=== PATIENT | male | born 1990 | race Caucasian/White ===

== ENCOUNTER → 2017-09-29 17:36 | Outpatient (CLI) | payer MEDICARE, MEDICAID, SELFPAY ==
[2017-09-29 19:01] LABS: Amphetamine Urine VISTA NEGATIVE (<1000 ng/mL); Barbiturate Urine VISTA NEGATIVE (< 200 ng/mL); Benzodiazepine Urine VISTA NEGATIVE (< 200 ng/mL); Cocaine Urine VISTA NEGATIVE (< 300 ng/mL); Ecstacy Urine VISTA NEGATIVE (< 500 ng/mL); Methadone Urine VISTA NEGATIVE (< 300 ng/mL); PCP Urine VISTA NEGATIVE (< 25 ng/mL); THC Urine VISTA NEGATIVE (< 50 ng/mL); Vista UDS pH Range 5
== END ==
PROVIDERS: Family Provider Pediatrics; PCP Pediatrics; Visit Provider Anesthesiology Pain Medicine
DX: F11.20 Opioid dependence, uncomplicated (principal)
CPT/HCPCS: 80307

== ENCOUNTER → 2017-11-03 20:06 | Outpatient (CLI) | payer MEDICARE, MEDICAID, SELFPAY | PROVIDERS: Family Provider Pediatrics; PCP Pediatrics; Visit Provider Internal Medicine | DX: G47.10 Hypersomnia, unspecified (principal) | CPT/HCPCS: 95810 ==

== ENCOUNTER → 2017-11-27 20:15 | Outpatient (CLI) | payer MEDICARE, MEDICAID, SELFPAY | PROVIDERS: Family Provider Internal Medicine; PCP Internal Medicine; Visit Provider Internal Medicine | DX: G47.33 Obstructive sleep apnea (adult) (pediatric) (principal) | CPT/HCPCS: 95811 ==

== ENCOUNTER → 2018-02-23 08:36 | Outpatient (CLI) | payer MEDICARE, MEDICAID, SELFPAY | PROVIDERS: Family Provider Internal Medicine; PCP Internal Medicine; Visit Provider Internal Medicine | DX: G47.33 Obstructive sleep apnea (adult) (pediatric) (principal) | CPT/HCPCS: 98960; G0463 ==

== ENCOUNTER → 2018-04-01 16:43 | Outpatient (CLI) | payer MEDICARE, MEDICAID, SELFPAY ==
--- NOTE | 2018-04-01 17:17 | MRI_ITS ---
STUDY: MRI LUMBAR SPINE WITHOUT CONTRAST REASON FOR EXAM: Male, 27 years old. Right-sided radiculopathy TECHNIQUE: Standardized fat and water weighted pulse sequences were obtained in the sagittal and axial planes. COMPARISON: None FINDINGS: There is normal alignment and curvature of the lumbosacral spine with no acute fractures or dislocations and no abnormal marrow infiltrative processes. The disc spaces look fairly well-maintained except for mild desiccation at L4-5. There is also shortening of the pedicular lengths throughout. The conus medullaris terminates at T12-L1. T12-L1: Normal endplates. Normal disc height, hydration and morphology. Normal bilateral facet joints. Normal central canal and bilateral lateral recesses. Normal bilateral intervertebral neural foramina. L1-2: Normal endplates. Normal disc height, hydration and morphology. Normal bilateral facet joints. Normal central canal and bilateral lateral recesses. Normal bilateral intervertebral neural foramina. L2-3: Normal endplates. Normal disc height, hydration and morphology. Degenerative changes of the facet joints with some hypertrophy of ligamentum flavum. Mild central canal stenosis. Normal central canal and bilateral lateral recesses. Normal bilateral intervertebral neural foramina. L3-4: There is a 1.1 x 0.4 cm right paracentral disc protrusion with deformity of the anterior contour of the thecal sac and impingement upon the intrathecal L4 nerve root L4-5: A fairly large 1.8 x 0.5 cm Central/right paracentral disc protrusion with severe deformity of the thecal sac and impingement upon the intrathecal right L5 nerve root L5-S1: Normal endplates. Normal disc height hydration and morphology. Normal bilateral facet joints. Normal central canal and bilateral lateral recesses. Normal bilateral intervertebral neural foramina. The aorta and the visualized portions of kidneys are normal. MRI/Spine Lumbar (Routine) IMPRESSION: Physiologic shortening of the pedicular lengths. A 1.1 x 0.4 cm right paracentral disc protrusion at the L3-4 level with a moderate deformity of the anterior contour of the thecal sac on the right and subsequent impingement on the right intrathecal L4 nerve root. A 1.8 x 0.5 cm central/right central disc protrusion at L4-5 with severe deformity of the thecal sac and impingement on the intrathecal L5 nerve root Electronically Signed: Rashad Degroot, at 5:12 EDT Tel , Service support ,
== END ==
PROVIDERS: Family Provider Internal Medicine; PCP Internal Medicine; Visit Provider Anesthesiology Pain Medicine
DX: M54.9 Dorsalgia, unspecified (principal); M79.604 Pain in right leg
CPT/HCPCS: 72148

== ENCOUNTER → 2018-07-28 20:27 | Outpatient (CLI) | payer MEDICARE, MEDICAID, SELFPAY | PROVIDERS: Family Provider Internal Medicine; PCP Internal Medicine; Visit Provider Clinical Nurse Specialist | DX: G47.33 Obstructive sleep apnea (adult) (pediatric) (principal) | CPT/HCPCS: 95811 ==

== ENCOUNTER → 2018-08-18 07:57 | Outpatient (CLI) | payer MEDICARE, MEDICAID, SELFPAY ==
--- NOTE | 2019-01-04 12:19 | NEURO ---
NCS and/or EMG Patient Report Ordering Doctor: Kwadwo Slater DATE OF SERVICE: 01/04/19 This is a bilateral lower extremity nerve conduction study originally performed 08/18/2018. There has been a delay in dictation of the study for unknown reasons. EMG apparently was not performed. Bilateral lower extremity nerve conduction study demonstrates low amplitude of the tibial motor responses bilaterally. The sural sensory responses are intact. There is low amplitude from all of the motor responses including the bilateral peroneal and bilateral tibial responses with prolonged latencies from those nerves as well. There is also slowing of conduction velocities from all nerves. These responses are similar to the responses from the right lower extremity performed 04/09/2016. Impression abnormal nerve conduction study of the bilateral lower extremities consistent with primarily motor polyneuropathy.
== END ==
PROVIDERS: Family Provider Internal Medicine; PCP Internal Medicine; Referring Provider Psychiatry & Neurology Neurology; Visit Provider Psychiatry & Neurology Neurology
DX: G62.9 Polyneuropathy, unspecified (principal); R20.0 Anesthesia of skin; R20.2 Paresthesia of skin
CPT/HCPCS: 95886; 95911

== ENCOUNTER 2018-12-06 17:00 | Outpatient (RCR) | payer MEDICARE, MEDICAID, SELFPAY ==
[2018-10-19 14:20] VITALS: BMI 46.0
--- NOTE | 2018-11-08 08:50 | HP.PTEVAL ---
Patient's Visit Information JEAN PIERRE BROOKE is a 28 year old M referred to Physical Therapy by Yesenia Alicea MD with a diagnosis of Lumbar stenosis. Date of Evaluation: 11/01/18 Physical Therapist: Murali Mo DPT - Visit Plan Frequency: 2x /Week Duration: 4 Weeks Plan: Pt. to start with core stability and lumbar ROM in aquatic setting. Progress as tolerated. - Subjective Findings: Pt. is here today for his initial evaluation with diagnosis of lumbar stenosis. Pt. reports ahving back pain for a number of years. Pt. did have an MRI showing L3-L4 and L4/L5 disc herniations and multiple level stenosis. Pt. did see an ortho who talked about non operative and operative options. Operative options being L2-L5 laminectomy. Pt. works at local [employer] where he does some lifting and standing, but is able to take frequent breaks. Pt. does have a mental disability. Pt. is able to swim without issues and is not afraid of water. Pt. does report pain going down RLE to levels of mid calf. No pain with sitting, mostly with standing and walking. Pt. denies N/T. Pt. is hopeful to reduce symptoms in order to avoid lumbar surgery. - Objective POSTURE: Pt. is over wt. Pt. has decreased lumbar lordosis. Pt. also has increased thoracic kyphosis with rounded shoulders. Pt. is able to improve with Vcing. PALPATION: pt. has tenderness throughout lumbar paraspinals. Pt. has no pain with palaption of BLEs. NEURO: pt. has normal DTR of bilateral LEs. Pt. denies sensation changes with testing this date. Pt. is able to rise on heels and toes without issues. ROM: lumbar spine: flexion mod loss increase NW, ext mod loss increase NW, SB min loss bilat NE, rotation min loss NE bilat. Tight HS noted bilaterally and tight hip flexors noted bilaterally. MMT: Pt. has 5/5 strength throughout bilateral LEs, except 4/5 hip ext. Pt. has poor+ core strength. Pt. does fatigue rapidly with maintaing improved posture. GAIT: Pt. ambulates without AD without LOB. Pt. does have increased sway back posture with gait. STAIRS: negotiates with reciprocal pattern without LOB. Increased pain with increased walking. - Special Tests L/S Slump test left side: Negative L/S Slump test right side: Negative L/S Left Straight Leg Raise: Negative L/S Right Straight Leg Raise: Negative - Goals Goal 1:: Pt. to be I with HEP. Goal Time Frame: 4-6 Weeks Goal 2:: Pt. to have increased core strength by 1/2 grade to increase stability and reduce stress applied to lumbar spine with all functional mobility. Goal Time Frame: 4-6 Weeks Goal 3:: Pt. to increase walking tolerance to 1 mile prior to have increased back and RLE pain allowing for increased healthy life style. Goal Time Frame: 4-6 Weeks Goal 4:: Pt. to complete work activities with 1-2/10 pain in lumbar spine and RLE Goal Time Frame: 4-6 Weeks Goal 5:: Pt. to demonstrate improved posture throughout therapy session indicating increased postural awareness. Goal Time Frame: 4-6 Weeks - Rehabilitation Potential Physical Therapy Diagnosis: Pt. has signs and symptoms consistent with lumabr stenosis. Pain increases with increased walking and lfting, decreases in sitting. He does have radiating RLE symptoms, but reduces in sitting. Pt. would benefit from PT in aquatic setting to icnrease core stability and improve posture. Rehabilitation Potential: Fair - Anticipated Interventions Patient/Client Instruction: Educate patient on: Condition, Plan of Care, Risk Factors, Benefits of Fitness Program For the Purpose of:: To improve decision making, To facilitate caregiver knowledge, To improve self management, To prevent re-injury, To improve ability to perform tasks related to life management, To improve tolerance to ADL's Therapeutic Exercise to Include: Strength training, Power training, Endurance training, Balance training, Flexibilty training, In an aquatic setting, Passive ROM, Active ROM, Dynamic Lumbar Stabilization, Neeru Exercises For the Purpose of:: To decrease pain, To decrease swelling/inflammation, To increase ROM, To improve nutrient delivery to tissue, To improve muscle performance and motor function, To improve ability to perform ADL's, To improve gait and locomotor functions, To improve health of tissue, To decrease soft tissue restriction Thank you for the opportunity to evaluate your patient. For Medicare and Medicare HMO plans, please review the plan of care and approve it. It will need to be FAXED BACK to us at [phone] for Medicare purposes. For Medicare only, by signing this I certify the plan of care. Please let me know if there are questions or concerns regarding this plan of care. Physician Signature: Date:
--- NOTE | 2019-04-26 10:32 | HP.PTDCSUM ---
HP - PT D/C Summary It has been my pleasure to treat JEAN PIERRE BROOKE under orders from Yesenia Alicea MD, for the diagnosis of Lumbar stenosis for a total of 9 visit(s). Discharge Date: 12/06/18 Please see the following information for a summary of their discharge status. - Subjective Subjective: Pt. reports I am doing a little better, but not all the way better.' Pt. reports being HEP compliant. - Pain Lumbar Spine Pain Intensity (Out of 10): 2 - Overall Improvement % Improvement: 50 - Objective Objective/Function: Pt. was seen in aquatic setting for his lumbar stenosis. ROM: pt. has slight reduction in extension, but rest of his ROM is good. Pt. has some tingling in BLEs, but both. Pt. reports having 2/10 pain in lumbar spine with standing, no pain with sitting. Pt. has 5/5 BLE strength, and fair core stength. Pt. desires to continue on his own at this point in time. - Goals Goal 1:: Pt. to be I with HEP. Goal Progress: Goal Met Goal 2:: Pt. to have increased core strength by 1/2 grade to increase stability and reduce stress applied to lumbar spine with all functional mobility. Goal Progress: Goal Met Goal 3:: Pt. to increase walking tolerance to 1 mile prior to have increased back and RLE pain allowing for increased healthy life style. Goal Progress: Progressing Goal 4:: Pt. to complete work activities with 1-2/10 pain in lumbar spine and RLE Goal Progress: Progressing Goal 5:: Pt. to demonstrate improved posture throughout therapy session indicating increased postural awareness. Goal Progress: Goal Met - Plan Plan: Pt. to be DC to HEP at this point in time. - D/C Information Discharge Comments: Pt. was seen in PT in aquatic setting for ROM and core stability exercises. Pt. progressed, but did not fully abolish his symptoms. Pt. has mild pain with working and walking longer distances. Pt. is independent with his HEP and will be DC to HEP at this point in time. If there are questions or concerns regarding this patient's physical therapy, please feel free to call me at [phone]. Thank you for the referral of this patient. Sincerely, Murali oM DPT
== END 2018-12-06 19:00 | disposition home or self-care (01) ==
LOC: PT 17:00
PROVIDERS: Family Provider Internal Medicine; PCP Internal Medicine; Referring Provider Orthopaedic Surgery; Visit Provider Orthopaedic Surgery
DX: M48.061 Spinal stenosis, lumbar region without neurogenic claudication (principal); M54.16 Radiculopathy, lumbar region
CPT/HCPCS: 97113; 97161; 97530

== ENCOUNTER → 2019-04-20 09:19 | Outpatient (CLI) | payer MEDICARE, MEDICAID, SELFPAY ==
[2018-10-19 14:20] VITALS: BMI 46.0
[2019-04-20 11:45] LABS: Amphetamine Urine VISTA NEGATIVE (<1000 ng/mL); Barbiturate Urine VISTA NEGATIVE (< 200 ng/mL); Benzodiazepine Urine VISTA NEGATIVE (< 200 ng/mL); Cocaine Urine VISTA NEGATIVE (< 300 ng/mL); Ecstacy Urine VISTA NEGATIVE (< 500 ng/mL); Methadone Urine VISTA NEGATIVE (< 300 ng/mL); PCP Urine VISTA NEGATIVE (< 25 ng/mL); THC Urine VISTA NEGATIVE (< 50 ng/mL); Vista UDS pH Range 6
== END ==
PROVIDERS: Family Provider Internal Medicine; PCP Internal Medicine; Referring Provider Anesthesiology Pain Medicine; Visit Provider Anesthesiology Pain Medicine
DX: F11.20 Opioid dependence, uncomplicated (principal)
CPT/HCPCS: 80307

== ENCOUNTER → 2019-08-18 09:48 | Outpatient (CLI) | payer MEDICARE, MEDICAID, SELFPAY ==
[2018-10-19 14:20] VITALS: BMI 46.0
[2019-08-18 10:01] LABS: Platelet Count 195 K/mm3 (150-450)
[2019-08-18 10:25] LABS: AST(SGOT) 39 U/L (15-37); Alanine Aminotransfer ALT/SGPT 72 U/L (16-61)
[2019-08-18 10:50] LABS: Valproic Acid (Depakene) Level 49 ug/mL (50-100)
[2019-08-18 10:51] LABS: Hemoglobin A1c 5.9 % (4.2-6.3)
== END ==
PROVIDERS: Family Provider Internal Medicine; PCP Internal Medicine; Referring Provider Psychiatry & Neurology Psychiatry; Visit Provider Psychiatry & Neurology Psychiatry
DX: Z79.899 Other long term (current) drug therapy (principal)
CPT/HCPCS: 36415; 80164; 82140; 83036; 84450; 84460; 85049

== ENCOUNTER 2021-07-11 17:03 | Emergency (ER) | payer MEDICARE, MEDICAID, SELFPAY ==
[2021-07-11 17:04] VITALS: BP 149/103; PULSE 104; RESP 24; TEMP 36.7; O2SAT 97; BMI 49.7
--- NOTE | 2021-07-11 17:25 | EKG12_ITS ---
Test Reason : CP Blood Pressure : / mmHG Vent. Rate : 097 BPM Atrial Rate : 097 BPM P-R Int : 140 ms QRS Dur : 092 ms QT Int : 366 ms P-R-T Axes : 058 -05 027 degrees QTc Int : 464 ms Normal sinus rhythm Normal ECG Confirmed by ERASTO PLASENCIA, LASHELL ([id number]), newspaper editor managing WILLIAM DESHPANDE ([id number]) on 07/12/2021 1:57:55 P M Referred By: MIRYAM Confirmed By:INDIRA MAURER MD
--- NOTE | 2021-07-11 17:25 | EX.ED.DYSGE1 ---
HPI History of Present Illness Chief Complaint: Chest Pain Detail of Chief Complaint: Chest pain Informant: patient Narrative Narrative: Patient presents to the emergency department complaint of chest pain that started 2 days ago. Patient describes a sharp stabbing pain in the left chest that lasts a few minutes and then resolves. This will happen about every hour. He denies shortness of breath with this. He denies nausea or vomiting. He is never had discomfort like this before. He denies any injury to his chest. He denies recent travel or surgery. No history of PE or DVT. No family history of heart disease. Patient denies fever or recent illness. Prior similar symptoms: No PFSH PFSH Home Medications citalopram 40 mg PO DAILY 02/08/16 [History Last Taken Unknown] clonidine HCl 0.1 mg PO DAILY PRN 02/08/16 [History Last Taken Unknown] divalproex [Depakote] 500 mg PO BID 02/08/16 [History Last Taken Unknown] gabapentin 200 mg PO TIDCM 02/08/16 [History Last Taken Unknown] loratadine [Claritin] 10 mg PO DAILY 02/08/16 [History Last Taken Unknown] risperidone [Risperdal] 3 mg PO DAILY 02/08/16 [History Last Taken Unknown] tramadol 50 mg PO TID 02/08/16 [History Last Taken Unknown] lisinopril 10 mg PO DAILY 07/11/21 [History Last Taken Unknown] Allergy/AdvReac Type Severity Reaction Status Date / Time No Known Allergies Allergy Verified 07/11/21 17:05 Surgical History (Updated 07/11/21 @ 17:38 by Jackson Villar) H/O laminectomy h/o tonsilectomy Social History (Updated 10/30/18 @ 13:[address] Yesenia Alicea MD) Smoking Status: Never smoker ROS ROS ED Constitutional Constitutional ED: Reports systems reviewed and no addt'l complaints, except as documented; Denies body ache(s), change in weight or chills Eyes Eyes: Denies acute decrease in peripheral vision, change in vision, double vision or loss of vision ENT ENT ED: Reports none; Denies ear pain, lip swelling, loss taste/smell, neck pain, otalgia or sore throat Cardiovascular Cardiovascular: Reports none and chest pain; Denies abdominal pain, chest pain with activity, leg edema, lightheadedness, palpitations, rapid heart rate or syncope Respiratory/Chest Respiratory/Chest: Reports none; Denies change in mental status, dry cough, dyspnea, hemoptysis, shortness of breath at rest or shortness of breath with exertion Gastrointestinal Gastrointestinal: Reports none; Denies abdominal pain, change in stool character, diarrhea, hematemesis, hematochezia, melena, rectal bleeding or vomiting Genitourinary Genitourinary ED: Reports none; Denies abdominal discomfort, anuria, dysuria, genital pain or polyuria Musculoskeletal Musculoskeletal: Reports none; Denies arthralgias, back pain, difficulty walking, extremity pain, muscle weakness or myalgias Integumentary Reports none; Denies abscess or rash Neurologic Neurologic: Reports none; Denies abnormal gait, confusion, focal weakness, frequent falls, headache(s), loss of vision, numbness, paresthesias, radicular pain, vertigo or weakness Psychiatric Psychiatric: Reports systems reviewed and no addt'l complaints, except as documented and none; Denies behavioral changes, confusion, difficulty concentrating, hallucinations, suicidal ideation, tactile hallucinations or visual hallucinations Endocrine Endocrinology: Denies none, cold intolerance, excessive sweating, fatigue or heat intolerance Hematologic/Lymphatic Hematologic/Lymphatic: Reports none; Denies anemia, easy bleeding or easy bruising Allergic/Immunologic Allergic/Immunologic ED: Denies as per HPI, none, lip swelling, mouth swelling, throat swelling, tongue swelling or hives EXAM Physical Exam Const Vital Signs: 07/11/21 17:04 07/11/21 17:33 07/11/21 17:41 Temperature 98.0 F Temperature Source Temporal Pulse Rate 104 H Respiratory Rate 24 H Respiratory Effort Normal Blood Pressure 149/103 H Blood Pressure Mean 118 Pulse Ox 97 96 Oxygen Delivery Method Room Air Room Air Positive well nourished and well developed General Appearance ED: well developed and NAD HEENT Reports TM's clear and moist mucous membranes normocephalic and atraumatic; Negative for trauma or tenderness Tympanic Membrane ED: Yes TM's clear Eyes PERRL and EOMs intact bilaterally General Eye ED: Negative for pale conjunctiva or scleral icterus Neck no lymphadenopathy, supple and no JVD General: Negative for tenderness Chest Wall inspection of chest normal and palpation of chest normal Chest: Negative for tenderness Resp normal respiratory effort and clear to auscultation bilaterally Effort and Inspection: Negative for respiratory distress or pain with movement Auscultation: Negative for rhonchi, wheezes or diminished lung sounds Cardio regular rate, regular rhythm, S1 normal heart sound, S2 normal heart sound and no murmurs Peripheral Pulses: pulses 2+ throughout GI normal to inspection, nondistended, normoactive bowel sounds, soft to palpation, non-tender, non-distended and no masses Back/Spine no CVA tenderness and no thoracic nor lumbar tenderness Extremity normal to inspection General Extremety ED: Negative for edema General Extremity: Negative for edema Neuro oriented x3, CN's II-XII intact bilaterally, no sensory deficits noted and gait normal Sensorium / Orientation: awake, alert, oriented to person, oriented to place and oriented to time Motor Exam: strength 5/5 throughout and strength abnormal Psych mental status grossly normal Skin no rashes or lesions noted and no wounds MDM MDM Lab Data Attestation: I reviewed the patient's lab results. Labs: Laboratory Results - last 24 hr 07/11/21 07/11/21 07/11/21 17:30 17:30 17:30 WBC 4.6 RBC 4.81 Hgb 14.1 Hct 43.0 MCV 89.4 MCH 29.3 MCHC 32.8 RDW Std Deviation 51.7 H RDW Coeff of Maddy 15.8 H Plt Count 117 L MPV 9.2 Immature Gran % (Auto) 0.400 Neut % (Auto) 77.6 H Lymph % (Auto) 16.0 L [place] % (Auto) 5.4 Eos % (Auto) 0.4 Baso % (Auto) 0.2 Absolute Neuts (auto) 3.6 Absolute Lymphs (auto) 0.74 L Nucleated RBC % 0 Differential Comment SCANNED D-Dimer Quant (PE/DVT) < 0.27 L Sodium 136 Potassium 3.8 Chloride 100 Carbon Dioxide 29.0 Anion Gap 7 BUN 11 Creatinine 0.59 L Estim Creat Clear Calc 214.79 Est GFR (MDRD) Af Amer 208 Est GFR (MDRD) Non-Af 171 BUN/Creatinine Ratio 18.5 Glucose 121 H Calcium 9.4 Troponin I High Sens 6 Radiography Chest X-Ray - ED: 1 View Diagnostic Testing: Clinical Impression(s) from Imaging Studies Chest X-Ray 07/11/21 17:37 IMPRESSION: No acute cardiopulmonary pathology unchanged since previous study Electronically Signed: Ramez Merritt MD at 18:04 EST , Service support , 1 view chest x-ray obtained interpreted by myself as no acute disease process. Radiology in agreement. EKG Initial EKG: Comments: Sinus rhythm with a ventricular rate of 97 bpm with no acute ST segment changes. No evidence of pericarditis. Discharge Plan Triage Chief Complaint: Chest Pain ED Provider: Christiano Ngo Dx/Rx/DC Orders Clinical Impression: Chest pain Instructions: ED Pain, Acute, Uncertain Cause Prescriptions: No Action clonidine HCl 0.1 MG tablet 0.1 mg PO DAILY PRN (Reason: Anxiety) RF: 0 citalopram 40 MG tablet 40 mg PO DAILY RF: 0 divalproex [Depakote] 500 MG tablet,delayed release (DR/EC) 500 mg PO BID RF: 0 tramadol 50 MG tablet 50 mg PO TID RF: 0 risperidone [Risperdal] 3 MG tablet 3 mg PO DAILY RF: 0 gabapentin 100 MG capsule 200 mg PO TIDCM RF: 0 loratadine [Allergy Relief (loratadine)] 10 MG tablet 10 mg PO DAILY RF: 0 lisinopril 10 mg tablet 10 mg PO DAILY RF: 0 Primary Care Provider: Eleni Sofia Referrals: Eleni Sofia MD [Primary Care Provider] - 5-7 Days Disposition Disposition: Home, Self Care
[2021-07-11 17:33] VITALS: O2SAT 96
[2021-07-11] MEDS: 0.9% Normal Saline 1,000 ML 150 ML IV (17:35)
--- NOTE | 2021-07-11 17:37 | RAD_ITS ---
STUDY: X-RAY CHEST REASON FOR EXAM: Male, 31 years old. chest pain TECHNIQUE: AP portable COMPARISON: 02/08/2017. FINDINGS: Less than optimal inspiratory effort is seen and there is minor interstitial prominence in the lower lobes.. There is no demonstrated pleural abnormality. Borderline cardiomegaly exaggerated by radiographic technique. Normal mediastinum and suzette. Normal visualized pulmonary arteries. Normal visualized aortic arch and descending thoracic aorta. Normal visualized thoracic spine. Normal visualized ribs, clavicles, and shoulders. There is no demonstrated abnormality of the visualized soft tissue structures of the upper abdomen. No significant change since prior exam. RAD/Chest 1 View (Portable) IMPRESSION: No acute cardiopulmonary pathology unchanged since previous study Electronically Signed: Ramez Merritt MD at 18:04 EST , Service support ,
[2021-07-11 18:16] LABS: Anion Gap 7 (5-15); BUN 11 mg/dL (7-18); BUN/Creat Ratio 18.5 RATIO (10-20); Calcium,Total 9.4 mg/dL (8.5-10.1); Chloride 100 mmol/L (98-107); Creatinine, Serum 0.59 mg/dL (0.70-1.30); EST Glomerular Filtration Rate 171 mL/min (>60); Est Glom Filt Rate - Afr Amer 208 mL/min (>60); Estimated Creatinine Clearance 214.79 ml/min; Glucose 121 mg/dL (74-106); Potassium 3.8 mmol/L (3.5-5.1); Sodium Level 136 mmol/L (136-145); Troponin-I HS 6 pg/mL (3.0-78.0)
[2021-07-11 18:37] LABS: D-Dimer Quantitative (DVT/PE) < 0.27 FEU/ug/m (0.27-0.49)
[2021-07-11 18:54] VITALS: BP 144/96; PULSE 96; RESP 25; O2SAT 96
[2021-07-11 19:04] LABS: Absolute Lymphocyte Count 2.88 X10^3/uL (0.83-4.51); Absolute Neutrophil Count 4.8 X10^3/uL (2.0-7.7); Basophil# 0.08 X10^3/uL; Basophil% 0.9 % (0-1); Eosinophil# 0.17 X10^3/uL; Eosinophils% 1.9 % (0-5); Hematocrit 44.1 % (40-54); Hemoglobin 14.4 g/dL (13.0-16.5); Lymphocyte # 2.88 X10^3/ul (0.83-4.51); Mean Corp Hgb Conc 32.7 g/dL (32-36); Mean Corpuscular Hgb 27.6 pg (27.0-32.0); Mean Corpuscular Volume 84.5 fL (80-94); Mean Platelet Vol. 11.1 fl (6.2-12.0); Monocyte# 0.69 X10^3/uL; Monocyte% 7.9 % (0-10); NRBC Flagged by Analyzer 0 % (0-5); Neutrophil # 4.82 X10^3/uL (2.7-7.7); Neutrophil % 55.2 % (47-70); Platelet Count 225 K/mm3 (150-450); RBC Distribution Width CV 12.3 % (11.6-14.6); RBC Distribution Width SD 37.2 fl (35.1-43.9); Red Blood Count 5.22 M/mm3 (4.6-6.2); White Blood Count 8.7 K/mm3 (4.4-11.0)
== END 2021-07-11 18:55 | disposition home or self-care (01) ==
PROVIDERS: Emergency Provider Emergency Medicine; PCP Internal Medicine
DX: R07.9 Chest pain, unspecified (principal)
CPT/HCPCS: 71045; 80048; 84484; 85025; 85379; 93005; 96360; 99284; J7030

== ENCOUNTER → 2022-04-23 | Outpatient (CLI) | payer MEDICARE, MEDICAID, SELFPAY ==
[2022-04-23 10:21] LABS: D-Dimer Quantitative (DVT/PE) 0.31 FEU/ug/m (0.27-0.49)
== END | disposition home or self-care (01) ==
LOC: LABSPEC 09:59
PROVIDERS: PCP Internal Medicine; Referring Provider Nurse Practitioner; Visit Provider Nurse Practitioner
DX: R60.0 Localized edema (principal); R06.02 Shortness of breath
CPT/HCPCS: 85379

== ENCOUNTER 2022-09-16 08:44 | Emergency (ER) | payer MEDICARE, MEDICAID, SELFPAY ==
[2022-09-16 08:45] VITALS: BP 154/92; PULSE 102; RESP 20; TEMP 36.4; O2SAT 97; BMI 50.1
[2022-09-16 09:03] VITALS: PULSE 93; RESP 18; O2SAT 96
--- NOTE | 2022-09-16 09:18 | VDLE_ITS ---
Reason For Study: Swelling RIGHT LEFT GSV is normal. CFV is compressible, spontaneous, phasic, CFV is compressible, spontaneous, phasic, competent, and demonstrates normal competent and demonstrates normal augmentation. augmentation. FV is compressible, spontaneous, phasic, competent and demonstrates normal augmentation. POP V is compressible, spontaneous, phasic, competent and demonstrates normal augmentation. T/P Trunk is compressible. PTV is compressible. RT PerV is compressible. Procedure This is a venous duplex using B-mode, color flow and spectral Doppler. Exam performed portable in ED. The exam was diagnostic. A preliminary report was called and/or faxed to Dr. Mccloud. VL/Venous Duplex US, Unilateral Interpretation Summary There is no evidence of right lower extremity deep vein thrombosis. Right great saphenous vein appears patent and compressible segmentally. Normal flow patterns left common f emoral vein Ordering Physician: Cuco Mccloud Referring Physician: Cuco Mccloud Performed By: Shawn Frank RVT
--- NOTE | 2022-09-16 09:18 | EKG12_ITS ---
Test Reason : CP Blood Pressure : / mmHG Vent. Rate : 084 BPM Atrial Rate : 084 BPM P-R Int : 136 ms QRS Dur : 100 ms QT Int : 384 ms P-R-T Axes : 042 001 039 degrees QTc Int : 453 ms Normal sinus rhythm Normal ECG Confirmed by KRYSTEN LONODNO MD ([id number]), slot editor WILLIAM DESHPANDE ([id number]) on 09/17/2022 9:12:49 AM Referred By: YSABEL Confirmed By:KRYSTEN LONDONO MD
--- NOTE | 2022-09-16 09:18 | RAD_ITS ---
STUDY: X-RAY CHEST REASON FOR EXAM: Male, 32 years old. Mid-chest pain TECHNIQUE: PA and lateral views of the chest. Limited study due to patient motion artifact. COMPARISON: Comparison is made with prior study 07/11/2021. FINDINGS: EKG electrodes are seen. The lungs are clear and expanded. There is no demonstrated pleural abnormality. Normal size heart. Normal mediastinum and suzette. Normal visualized pulmonary arteries. Normal visualized aortic arch and descending thoracic aorta. Normal visualized thoracic spine. Normal visualized ribs, clavicles, and shoulders. There is no demonstrated abnormality of the visualized soft tissue structures of the upper abdomen. RAD/Chest PA and Lateral IMPRESSION: No acute abnormality is seen. Electronically Signed: Reagan Bentley MD at 10:37 EST ,
--- NOTE | 2022-09-16 09:20 | EDS_ITS ---
HPI History of Present Illness Chief Complaint: Chest Pain Informant: patient and parent Onset/Context/Timing Onset: Yesterday Activity at onset: activity on onset (Lying supine ready to go to sleep) Timing: Continuous Quality: Positive for Aching and Tightness Location: Substernal Current Severity: Moderate Maximum Severity: Moderate Worsened By: Movement of Torso and Breathing (a little) Relieved By: - (sitting up) Associated Symptoms: Positive for Dyspnea; Negative for Nausea, Vomiting, Diaphoresis, Cough, Fever, Lightheadedness or Palpitations Narrative Narrative: 32-year-old male started having central chest discomfort last night. He states he is a little short of breath. He states he has a history of asthma. He agrees that his chest feels tight. Mom brings him in because all my kids are big boys, he has high blood pressure, and his grandfather had a heart attack and I was concerned he was having one. CVD Risk Factors: Positive for Hypertension; Negative for Diabetes, Hypercholesterolemia, Family History 1' </=55 or Smoking PE Risk Factors: Negative for Recent Travel/Surgery, Recent Immobilization, Prior DVT or PE (Both legs chronically swollen, with the right chronically worse than the left), Cancer or OCP + Smoking + >/=35 PFSH PFSH Medical History HTN (hypertension) Home Medications citalopram 40 mg tablet 40 mg PO DAILY 02/08/16 [History Last Taken Unknown] clonidine HCl 0.1 mg tablet 0.1 mg PO DAILY PRN Anxiety 02/08/16 [History Last Taken Unknown] divalproex 500 mg tablet,delayed release (Depakote) 500 mg PO BID 02/08/16 [History Last Taken Unknown] gabapentin 100 mg capsule 200 mg PO TIDCM 02/08/16 [History Last Taken Unknown] loratadine 10 mg tablet (Allergy Relief (loratadine)) 10 mg PO DAILY 02/08/16 [History Last Taken Unknown] risperidone 3 mg tablet (Risperdal) 3 mg PO DAILY 02/08/16 [History Last Taken Unknown] tramadol 50 mg tablet 50 mg PO TID 02/08/16 [History Last Taken Unknown] lisinopril 10 mg tablet 10 mg PO DAILY 07/11/21 [History Last Taken Unknown] Allergy/AdvReac Type Severity Reaction Status Date / Time No Known Allergies Allergy Verified 09/16/22 08:47 Surgical History H/O laminectomy h/o tonsilectomy Social History Smoking Status: Never smoker ROS ROS ED Constitutional Constitutional ED: Denies chills or fever(s) Eyes Eyes: Denies change in vision or diplopia ENT ENT ED: Denies rhinorrhea or sore throat Cardiovascular Cardiovascular: Reports chest pain and leg edema; Denies palpitations Respiratory/Chest Respiratory/Chest: Reports dyspnea; Denies cough Gastrointestinal Gastrointestinal: Denies abdominal pain, diarrhea, nausea or vomiting Genitourinary Genitourinary ED: Denies dysuria or hematuria Musculoskeletal Musculoskeletal: Denies back pain or neck pain Integumentary Denies abscess or rash Neurologic Neurologic: Denies headache(s), paresthesias or weakness Psychiatric Psychiatric: Denies anxiety or suicidal thoughts EXAM Physical Exam Const Vital Signs: 09/16/22 08:45 09/16/22 09:03 09/16/22 09:50 Temperature 97.5 F L Temperature Source Temporal Pulse Rate 102 H 93 110 H Respiratory Rate 20 H 18 22 H Respiratory Pattern Tachypnea Blood Pressure 154/92 H Blood Pressure Mean 112 Pulse Ox 97 96 Oxygen Delivery Method Room Air Room Air Positive well nourished and well developed General Appearance ED: well developed and NAD HEENT Reports moist mucous membranes normocephalic and atraumatic Eyes PERRL and EOMs intact bilaterally Neck full ROM and supple Resp normal respiratory effort and clear to auscultation bilaterally Cardio regular rate, regular rhythm and no murmurs GI non-tender and non-distended Auscultation: normoactive bowel sounds Palpation: soft Back/Spine no CVA tenderness General Back: other FROM Extremity normal to inspection General Extremety ED: Negative for edema, pulses abnormal or tenderness General Extremity: Negative for edema or pulses abnormal Neuro oriented x3, CN's II-XII intact bilaterally and no sensory deficits noted Sensorium / Orientation: awake and alert Motor Exam: strength 5/5 throughout Skin no rashes or lesions noted and no wounds MDM MDM MDM Narrative Medical decision making narrative: EKG is normal, 2 view chest x-ray obtained is normal on my interpretation, r adiology in agreement. Initially gave the patient an albuterol aerosol he said it helped a little, considering reactive airway and the differential here for his discomfort. I then given a GI cocktail and I took the pain away. Discussing the possibility of recurrent symptoms, and my recommendation to take an H2 gilda or PPI daily for 1 to 2 weeks, mom states he is already on that because he has already been diagnosed with reflux which was unbeknownst to me until this time. This makes it more likely to be the etiology of his symptoms especially given the history. I think it is less likely to be PE based on symptoms and history and lack of risk factors, we did do an ultrasound of his asymmetrically swollen right lower extremity, it is negative for DVT which makes PE even less likely here. Discussed all this with mom and patient they are comfortable discharge home and follow-up as needed. Radiography Diagnostic Testing: Clinical Impression(s) from Imaging Studies Chest X-Ray 09/16/22 09:18 IMPRESSION: No acute abnormality is seen. Electronically Signed: Reagan Bentley MD at 10:37 EST , Rhythm Strip Rhythm Strip: Sinus Rhythm Rate: 100 Ectopy: None EKG Initial EKG: Attestation: I personally reviewed and interpreted this EKG as follows: Interpretation: Sinus Rhythm and No Acute Injury Pattern Comments: Normal EKG Discharge Plan Triage Chief Complaint: Chest Pain ED Provider: Cuco Mccloud Dx/Rx/DC Orders Clinical Impression: Chest pain due to gastrointestinal reflux disease, Edema of right lower extremity Instructions: ED GERD (Adult) Prescriptions: No Action clonidine HCl 0.1 MG tablet 0.1 mg PO DAILY PRN (Reason: Anxiety) citalopram 40 MG tablet 40 mg PO DAILY divalproex [Depakote] 500 MG tablet,delayed release (DR/EC) 500 mg PO BID tramadol 50 MG tablet 50 mg PO TID risperidone [Risperdal] 3 MG tablet 3 mg PO DAILY gabapentin 100 MG capsule 200 mg PO TIDCM loratadine [Allergy Relief (loratadine)] 10 MG tablet 10 mg PO DAILY lisinopril 10 mg tablet 10 mg PO DAILY Label Comments: TAKE 1 & 1/2 (ONE AND ONE-HALF) TABLETS BY MOUTH DAILY Primary Care Provider: Eleni Sofia Referrals: Eleni Sofia MD [Primary Care Provider] - 3-5 Days if not improving Disposition Disposition: Home, Self Care
[2022-09-16 09:50] VITALS: PULSE 110; RESP 22
[2022-09-16] MEDS: Albuterol 2.5 MG/3 ML VIAL.NEB. INHALATION (10:13)
[2022-09-16] MEDS: Mag Hydrox/Al Hydrox/Simeth 30 ML UDC PO (11:09)
== END 2022-09-16 11:33 | disposition home or self-care (01) ==
PROVIDERS: Emergency Provider Emergency Medicine; PCP Internal Medicine; Visit Provider Emergency Medicine
DX: K21.9 Gastro-esophageal reflux disease without esophagitis (principal); R07.9 Chest pain, unspecified; R60.0 Localized edema; I10 Essential (primary) hypertension; R06.00 Dyspnea, unspecified; Z79.899 Other long term (current) drug therapy; Z86.718 Personal history of other venous thrombosis and embolism
CPT/HCPCS: 71046; 93005; 93971; 94640; 99283; A4216

== ENCOUNTER → 2023-08-10 | Outpatient (CLI) | payer MEDICARE, MEDICAID, SELFPAY | END | disposition home or self-care (01) | LOC: SL 19:56 | PROVIDERS: PCP Internal Medicine; Referring Provider Internal Medicine; Visit Provider Internal Medicine | DX: G47.33 Obstructive sleep apnea (adult) (pediatric) (principal); Z99.89 Dependence on other enabling machines and devices | CPT/HCPCS: 95811 ==

== ENCOUNTER → 2023-10-22 | Outpatient (CLI) | payer MEDICARE, MEDICAID, SELFPAY | END | disposition home or self-care (01) | LOC: SL 09:26 | PROVIDERS: PCP Internal Medicine; Referring Provider Internal Medicine; Visit Provider Internal Medicine | DX: G47.33 Obstructive sleep apnea (adult) (pediatric) (principal) | CPT/HCPCS: 98960; G0463 ==

== ENCOUNTER → 2024-06-29 | Outpatient (CLI) | payer MEDICARE, MEDICAID, SELFPAY | END | disposition home or self-care (01) | LOC: SL 20:03 | PROVIDERS: PCP Internal Medicine; Visit Provider Internal Medicine | DX: G47.33 Obstructive sleep apnea (adult) (pediatric) (principal) | CPT/HCPCS: 95811 ==

== ENCOUNTER → 2024-11-30 | Outpatient (CLI) | payer MEDICARE, MEDICAID, SELFPAY ==
--- NOTE | 2024-11-30 16:27 | RAD_ITS ---
PROCEDURE: LUMBAR SPINE 2 OR 3 VIEWS 11/30/2024 REASON FOR EXAM: PAIN TECHNIQUE: 2 view(s) of the lumbar spine COMPARISON: None available FINDINGS: Vertebrae: Vertebral body heights are well preserved. Discs: There is loss of intervertebral disc height at L5-S1 Alignment: Mild levocurvature of the lumbar spine. Other: RAD/Lumbar Spine 2 or 3 Views IMPRESSION: Degenerative changes throughout the lumbar spine. Mild levocurvature of the lumbar spine. Reading Location: [id number]
== END | disposition home or self-care (01) ==
LOC: RAD 16:23
PROVIDERS: PCP Internal Medicine; Referring Provider Anesthesiology Pain Medicine; Visit Provider Anesthesiology Pain Medicine
DX: M54.9 Dorsalgia, unspecified (principal)
CPT/HCPCS: 72100

== ENCOUNTER → 2025-06-08 | Outpatient (CLI) | payer MEDICARE, MEDICAID, SELFPAY ==
--- OUTSIDE RECORDS SUMMARY | 2025-06-08 19:54 | XMS RPT_ITS | CCD ---
Author Organization [facility] Care Team Providers Care Literacy Consultant Name Role Phone Snow Fraserbrigido Ortiz Unavailable Uriah Frasermarilee Ortiz Unavailable Bria Anneliese N Unavailable Yesenia Samaniego Unavailable Hector Currie MD Primary Care Provider Hector Currie MD Primary Care Provider Hector Currie MD Primary Care Provider Hector Currie MD Primary Care Provider Montez FERGUSON.DIMENSION STONE QUARRY SUPERVISOR, Sarah Unavailable CPAP Initiate Auto PAP @ 5-20 cm [...] Diabetes F (more content not included)... Normal [facility] SURGICAL PATHOLOGYon 022 CASE REPORT Normal [facility] Comment on above: Order Comment: Speci men Type: TISSUE SPECIMEN Ordering Facility: [facility] Address: [address] [place] [address] Result Comment: Surg ical Pathology Report Case: [id number] Authorizing Provider: Jaret King MD Collected: 03/05/2022 08:51 AM Ordering Location: [facility] Endoscopy Received: 03/05/2022 01:09 PM Pathologist: Darvin Marin MD Specimens: A) - DUODENUM BIOPSY, R/O Celiac Sprue B) - STOMACH BIOPSY, R/O H. Pylori C) - FUNDUS (STOMACH) BIOPSY, Fundic Gland Bx D) - ESOPHAGUS LOWER BIOPSY, Distal Esophagus Bx; R/O Bean's E) - ASCENDING COLON BIOPSY Performed By: #### S #### [facility] CLIA [id number] [address] [place] [address] OF [place] FINAL DIAGNOSIS Normal [facility] spital Comment on above: Order Comment: Speci men Type: TISSUE SPECIMEN Ordering Facility: [facility] Address: [address] [place] [address] Result Comment: A. D uodenum, biopsy: - [...] adenoma. Performed By: #### S #### [facility] CLIA [id number] [address] [place] [address] FINAL PERFORMING LAB Normal [facility] Comment on above: Order Comment: Speci men Type: TISSUE SPECIMEN Ordering Facility: [facility] Address: [address] [place] [address] Result Comment: Diag nostic interpretation performed at [facility], [address] [place] [address] CLIA# [id number] Network Relations Consultant: Jose Barros M.D. Performed By: #### S #### [facility] CLIA [id number] [address] [place] [address] OF [place] GROSS DESCRIPTION Normal [facility] Comment on above: Order Comment: Speci men Type: TISSUE SPECIMEN Ordering Facility: [facility] Address: [address] [place] [phone] Result Comment: A. D UODENUM BIOPSY. Received [...] 0.2 cm. Totally submitted in one cassette. [facility] March 05, 2022 5:11 PM [place] [address] Performed By: #### S #### [facility] CLIA [id number] [address] [place] [address] [place] [address] [place] Upper GI endoscopy 07-13-2 022 Upper GI endoscopy [facility] Gastrointestinal Endoscopy Patient Name: Niko Brooke Procedure Date: 03/05/2022 8:28 AM Date of : 1990 Admit Type: Outpatient Age: 31 Room: [facility] Gender: Male Note Status: Finalized Attending MD: [...] 1 week. Procedure Code(s): --- Professional --- 18020, Esophagogastroduodeno scopy, flexible, transoral; with biopsy, single or multiple Diagnosis Code(s): --- Professional --- K31.7, Polyp of stomach and duodenum K29.70, Gastritis, unspecified, without bleeding R13.10, Dysphagia, unspecified CPT copyright 2019 [employer]. All rights reserved. The codes documented in this report are preliminary and upon fudger review may be revised to meet current compliance requirements. Attending Participation: I personally performed the entire procedure. Scope In: 8:48:18 AM Scope Out: 8:53:45 AM MD Jaret Orta MD 03/05/2022 9:18:33 AM This report has been signed electronically by Jaret King MD Number of Addenda: 0 Note Initiated On: 03/05/2022 8:28 AM Estimated Blood Loss: Estimated blood loss was minimal. Normal [facility] Valproic Acidon 09-10-2021 Valproic Acid Normal 50-100 [facility] Comment on above: Result Comment: Unab le to assay. No specimen received. [id number], [facility] [id number] Account Credited Michael 03-20-2021 ALT [Catalytic activity/Vol] 46 U/L Normal 10-54 [facility] Comment on above: Performed By: #### V PA, ALT, NH3, HBA1C, PROL, AST, PLTCT, LIPB #### [facility] [address] [address] Niru 03-20-2021 AST [Catalytic activity/Vol] 47 U/L High 14-40 [facility] Comment on above: Performed By: #### V PA, ALT, NH3, HBA1C, PROL, AST, PLTCT, LIPB #### [facility] [address] [id number] Ammoniaon 03-20-2021 Ammonia (P) [Moles/Vol] 43 umol/L Normal 16-60 [facility] Comment on above: Performed By: #### V PA, ALT, NH3, HBA1C, PROL, AST, PLTCT, LIPB #### [facility] [address] [address] Hemoglobin A1con 03-20-2021 Glucose [Mass/Vol] 134 mg/dL Normal [facility] Comment on above: Performed By: #### V PA, ALT, NH3, HBA1C, PROL, AST, PLTCT, LIPB #### [facility] [address], [place] [address] HbA1c (Bld) [Mass fraction] 6.3 % High 4.3-5.6 [facility] Comment on above: Performed By: #### V PA, ALT, NH3, HBA1C, PROL, AST, PLTCT, LIPB #### [facility] [address], [place] [address] Lipid Panel, Basicon 021 Cholesterol [Mass/Vol] 204 mg/dL High <200 [facility] Comment on above: Performed By: #### V PA, ALT, NH3, HBA1C, PROL, AST, PLTCT, LIPB #### [facility] [address], [place] [address] Cholesterol in HDL [Mass/Vol] 31 mg/dL Low >39 [facility] Comment on above: Performed By: #### V PA, ALT, NH3, HBA1C, PROL, AST, PLTCT, LIPB #### [facility] [address], [place] [address] Cholesterol in LDL [Mass/Vol] 143 mg/dL High <100 [facility] Comment on above: Performed By: #### V PA, ALT, NH3, HBA1C, PROL, AST, PLTCT, LIPB #### [facility] [address], [place] [address] Cholesterol in VLDL [Mass/Vol] 30 mg/dL High <30 [facility] Comment on above: Performed By: #### V PA, ALT, NH3, HBA1C, PROL, AST, PLTCT, LIPB #### [facility] [address], [place] [address] Cholesterol non HDL [Mass/Vol] 173 mg/dL High <130 [facility] Comment on above: Performed By: #### V PA, ALT, NH3, HBA1C, PROL, AST, PLTCT, LIPB #### [facility] [address] [place] [address] LDL:HDL Ratio 4.61 High <2.54 [facility] Comment on above: Performed By: #### V PA, ALT, NH3, HBA1C, PROL, AST, PLTCT, LIPB #### [facility] [address] [place] [address] TC:HDL Ratio 6.58 High <5.10 [facility] Comment on above: Performed By: #### V PA, ALT, NH3, HBA1C, PROL, AST, PLTCT, LIPB #### [facility] [address] [place] [phone] Triglyceride [Mass/Vol] 151 mg/dL High <150 [facility] Comment on above: Performed By: #### V PA, ALT, NH3, HBA1C, PROL, AST, PLTCT, LIPB #### [facility] [address] [place] [phone] Platelet Counton 03-20-2021 Platelets (Bld) [#/Vol] 229 10*3/uL Normal 150-400 [facility] Comment on above: Performed By: #### V PA, ALT, NH3, HBA1C, PROL, AST, PLTCT, LIPB #### [facility] [address] [place] [address] Prolactinon 03-20-2021 Prolactin 32.7 ng/mL High 4.0-15.2 [facility] Comment on above: Performed By: #### V PA, ALT, NH3, HBA1C, PROL, AST, PLTCT, LIPB #### [facility] [address] [place] [address] Valproic Acidon 03-20-2021 Valproic Acid 37.4 ug/mL Low 50-100 [facility] Comment on above: Performed By: #### V PA, ALT, NH3, HBA1C, PROL, AST, PLTCT, LIPB #### [facility] [address] [address] Lipid Panel, Basicon 03-19-2 021 Fasting Time UN Normal [facility] Comment on above: Performed By: #### V PA, ALT, NH3, HBA1C, PROL, AST, PLTCT, LIPB #### [facility] [address] [place] [address] Ammoniaon 11-25-2018 Ammonia mass conc (P) 38 umol/L Normal 16-60 [facility] Comment on above: Performed By: #### N H3 #### [facility] [address] [place] [phone] Michael 11-21-2018 ALT enzyme act/vol 32 U/L Normal 10-54 [facility] Comment on above: Performed By: #### P LTCT, VPA, ALT, AST, PROL, HBA1C #### [facility] [address] [place] [phone] Niru 11-21-2018 AST enzyme act/vol 23 U/L Normal 14-40 [facility] Comment on above: Performed By: #### P LTCT, VPA, ALT, AST, PROL, HBA1C #### [facility] [address] [place] [address] Hemoglobin A1con 11-21-2018 Hemoglobin A1c/Hemoglobin.tot al mass fraction (Bld) 5.5 % Normal 4.3-5.6 [facility] Comment on above: Performed By: #### P LTCT, VPA, ALT, AST, PROL, HBA1C #### [facility] [address] [place] [address] Hemoglobin A1c/Hemoglobin.tot al mass fraction (Bld) 111 mg/dL Normal [facility] Comment on above: Performed By: #### P LTCT, VPA, ALT, AST, PROL, HBA1C #### [facility] [address] [place] [phone] Platelet Counton 11-21-2018 Platelets #/vol (Bld) 203 10*3/uL Normal 150-400 [facility] Comment on above: Performed By: #### P LTCT, VPA, ALT, AST, PROL, HBA1C #### [facility] [facility] [address] [address] Prolactinon 11-21-2018 Protein mass conc 38.4 ng/mL High 4.0-15.2 [facility] Comment on above: Performed By: #### P LTCT, VPA, ALT, AST, PROL, HBA1C #### [facility] [address] [address] Valproic Acidon 11-21-2018 Protein mass conc 53.4 ug/mL Normal 50-100 [facility] Comment on above: Performed By: #### P LTCT, VPA, ALT, AST, PROL, HBA1C #### [facility] [address] [place] [address] CBCon 12-30-2017 Absolute nRBC <0.01 Normal <0.01 [facility] Comment on above: Performed By: #### C BC, VPA, CMP #### [facility] [address] [place] [address] Erythrocyte distribution width Ratio (RBC) 12.1 % Normal 11.5-15.0 [facility] Comment on above: Performed By: #### C BC, VPA, CMP #### [facility] [address] [address] Hematocrit Volume Fraction (Bld) 43.5 % Normal 39.0-51.0 [facility] Comment on above: Performed By: #### C BC, VPA, CMP #### [facility] [address] [address] Hemoglobin mass conc (Bld) 14.2 g/dL Normal 13.0-17.0 [facility] Comment on above: Performed By: #### C BC, VPA, CMP #### [facility] [address], [place] [address] MCH Entitic mass (RBC) 28.5 pG Normal 26.0-34.0 [facility] Comment on above: Performed By: #### C BC, VPA, CMP #### [facility] [address], [place] [address] MCHC mass conc (RBC) 32.6 g/dL Normal 30.5-36.0 [facility] Comment on above: Performed By: #### C BC, VPA, CMP #### [facility] [address] [address] MCV Entitic volume (RBC) 87.3 fL Normal 80.0-100.0 [facility] Comment on above: Performed By: #### C BC, VPA, CMP #### [facility] [address] [place] [address] Platelet mean volume Entitic volume (Bld) 11.3 fL Normal 9.0-12.7 [facility] Comment on above: Performed By: #### C BC, VPA, CMP #### [facility] [address], [place] [address] Platelets #/vol (Bld) 202 10*3/uL Normal 150-400 [facility] Comment on above: Performed By: #### C BC, VPA, CMP #### [facility] [address], [place] [address] RBC #/vol (Bld) 4.98 10*6/uL Normal 4.20-6.00 [facility] Comment on above: Performed By: #### C BC, VPA, CMP #### [facility] [address], [place] [address] WBC #/vol (Bld) 8.36 10*3/uL Normal 3.70-11.00 [facility] Comment on above: Performed By: #### C BC, VPA, CMP #### [facility] [address] [address] Comp Metabolic Panelon 12-30 Albumin mass conc 4.4 g/dL Normal 3.9-4.9 [facility] Comment on above: Performed By: #### C BC, VPA, CMP #### [facility] [address] [address] ALP enzyme act/vol 60 U/L Normal 36-108 [facility] Comment on above: Performed By: #### C BC, VPA, CMP #### [facility] [address] [place] [address] ALT enzyme act/vol 43 U/L Normal 10-54 [facility] Comment on above: Performed By: #### C BC, VPA, CMP #### [facility] [address] [address] Anion gap molar conc 15 mmol/L Normal 9-18 [facility] Comment on above: Performed By: #### C BC, VPA, CMP #### [facility] [address] [address] AST enzyme act/vol 32 U/L Normal 14-40 [facility] Comment on above: Performed By: #### C BC, VPA, CMP #### [facility] [address] [address] Bilirubin Ql (U) 0.3 mg/dL Normal 0.2-1.3 [facility] Lab Comment on above: Performed By: #### C BC, VPA, CMP #### [facility] [address] [phone] Calcium mass conc 9.0 mg/dL Normal 8.5-10.2 [facility] Lab Comment on above: Performed By: #### C BC, VPA, CMP #### [facility] [address] [address] Chloride molar conc 101 mmol/L Normal 97-105 [facility] Comment on above: Performed By: #### C BC, VPA, CMP #### [facility] [address] [phone] CO2 molar conc 24 mmol/L Normal 22-30 [facility] Comment on above: Performed By: #### C BC, VPA, CMP #### [facility] [address] [address] Creatinine mass conc 0.66 mg/dL Low 0.73-1.22 [facility] Comment on above: Performed By: #### Heide BC, VPA, CMP #### [facility] [address] [phone] eGFR- Amer. >60 Normal [facility] Comment on above: Performed By: #### Heide BC, VPA, CMP #### [facility] [address] [phone] GFR/1.73 sq M predicted among non-blacks MDRD vol rate/area (S/P/Bld) mL/min/{1.73_m2} Normal [facility] Comment on above: Performed By: #### C BC, VPA, CMP #### [facility] [address] [address] Glucose mass conc 124 mg/dL High 74-99 [facility] Comment on above: Performed By: #### C BC, VPA, CMP #### [facility] [address] [phone] Potassium molar conc 4.4 mmol/L Normal 3.7-5.1 [facility] Comment on above: Performed By: #### C BC, VPA, CMP #### [facility] [address], [place] [id number] Protein mass conc 6.8 g/dL Normal 6.3-8.0 [facility] Comment on above: Performed By: #### C BC, VPA, CMP #### [facility] [address] [address] Sodium molar conc 140 mmol/L Normal 136-144 [facility] Comment on above: Performed By: #### C BC, VPA, CMP #### [facility] [address] [address] Urea nitrogen mass conc 9 mg/dL Normal 9-24 [facility] Comment on above: Performed By: #### C BC, VPA, CMP #### [facility] Lab [address], [place] [address] Valproic Acidon 12-30-2017 Protein mass conc 62.0 ug/mL Normal 50-100 [facility] Comment on above: Performed By: #### C BC, VPA, CMP #### [facility] Routine Lab [address], [place] [address] Office Visit: Spine Visiton 07-07-2017 Documentation of current medications (procedure) Done Invalid Interpretation Code [facility] Work Phone: Tobacco smoking status NHIS Tobacco smoking status NHIS Invalid Interpretation Code [facility] Work Phone: Tobacco use [facility] Never smoker Invalid Interpretation Code [facility] Work Phone: Vital Signs Date Time Vital Sign Value Performing Clinician Facility 04-21-2025 15:40-0400 Body mass index (BMI) [Ratio] 46.36 kg/m2 Sarah Hrermann APRN.DIMENSION STONE QUARRY SUPERVISOR Work Phone: [facility] 04-21-2025 15:40-0400 Body weight 163.8 kg Sarah Herrmann APRN.DIMENSION STONE QUARRY SUPERVISOR Work Phone: [facility] 04-21-2025 15:40-0400 Diastolic blood pressure 78 mm[Hg] Sarah Herrmann TIMBER MILL WORKER.DIMENSION STONE QUARRY SUPERVISOR Work Phone: [facility] 04-21-2025 15:40-0400 Heart rate 103 /min Sarah Herrmann TIMBER MILL WORKER.DIMENSION STONE QUARRY SUPERVISOR Work Phone: [facility] 04-21-2025 15:40-0400 Respiratory rate 20 /min Sarah Herrmann TIMBER MILL WORKER.DIMENSION STONE QUARRY SUPERVISOR Work Phone: [facility] 04-21-2025 15:40-0400 SaO2% (BldA) [Mass fraction] 96 % Sarah Herrmann TIMBER MILL WORKER.DIMENSION STONE QUARRY SUPERVISOR Work Phone: [facility] 04-21-2025 15:40-0400 Systolic blood pressure 109 mm[Hg] Sarah Herrmann TIMBER MILL WORKER.DIMENSION STONE QUARRY SUPERVISOR Work Phone: [facility] 12-20-2024 14:58-0400 Body mass index (BMI) [Ratio] 45.85 kg/m2 Sarah Herrmann TIMBER MILL WORKER.DIMENSION STONE QUARRY SUPERVISOR Work Phone: [facility] 12-20-2024 14:58-0400 Body weight 162 kg Sarah Herrmann TIMBER MILL WORKER.DIMENSION STONE QUARRY SUPERVISOR Work Phone: [facility] 12-20-2024 14:58-0400 Diastolic blood pressure 78 mm[Hg] Sarah Herrmann TIMBER MILL WORKER.DIMENSION STONE QUARRY SUPERVISOR Work Phone: [facility] 12-20-2024 14:58-0400 Heart rate 106 /min Sarah Herrmann TIMBER MILL WORKER.DIMENSION STONE QUARRY SUPERVISOR Work Phone: [facility] 12-20-2024 14:58-0400 Respiratory rate 16 /min Sarah Herrmann TIMBER MILL WORKER.DIMENSION STONE QUARRY SUPERVISOR Work Phone: [facility] 12-20-2024 14:58-0400 Systolic blood pressure 118 mm[Hg] Sarah Herrmann TIMBER MILL WORKER.DIMENSION STONE QUARRY SUPERVISOR Work Phone: [facility] 10-10-2024 11:06-0500 Body mass index (BMI) [Ratio] 46.08 kg/m2 Brandee Mcmanus TIMBER MILL WORKER.SECURITIES SUPERVISOR Work Phone: [facility] 10-10-2024 11:06-0500 Body temperature 97.3 [degF] Brandee Praisler-Wood TIMBER MILL WORKER.SECURITIES SUPERVISOR Work Phone: [facility] 10-10-2024 11:06-0500 Body weight 162.8 kg Brandee Praisler-Wood TIMBER MILL WORKER.SECURITIES SUPERVISOR Work Phone: [facility] 10-10-2024 11:06-0500 Diastolic blood pressure 78 mm[Hg] Brandee Praisler-Wood TIMBER MILL WORKER.SECURITIES SUPERVISOR Work Phone: [facility] 10-10-2024 11:06-0500 Heart rate 104 /min Brandee Praisler-Wood TIMBER MILL WORKER.SECURITIES SUPERVISOR Work Phone: [facility] 10-10-2024 11:06-0500 Respiratory rate 20 /min Brandee Praisler-Wood TIMBER MILL WORKER.SECURITIES SUPERVISOR Work Phone: [facility] 10-10-2024 11:06-0500 SaO2% (BldA) [Mass fraction] 95 % Brandee Praisler-Wood TIMBER MILL WORKER.SECURITIES SUPERVISOR Work Phone: [facility] 10-10-2024 11:06-0500 Systolic blood pressure 136 mm[Hg] Brandee Praisler-Wood TIMBER MILL WORKER.SECURITIES SUPERVISOR Work Phone: [facility] 08-15-2024 09:09-0500 Diastolic blood pressure 70 mm[Hg] Hector Currie MD Work Phone: [facility] 08-15-2024 09:09-0500 Systolic blood pressure 118 mm[Hg] Hector Currie MD Work Phone: [facility] 08-15-2024 08:26-0500 Body mass index (BMI) [Ratio] 45.85 kg/m2 Hector Currie MD Work Phone: [facility] 08-15-2024 08:26-0500 Body temperature 97.5 [degF] Hector Currie MD Work Phone: [facility] 08-15-2024 08:26-0500 Body weight 162 kg Hector Currie MD Work Phone: [facility] 08-15-2024 08:26-0500 Heart rate 98 /min Hector Currie MD Work Phone: [facility] 08-15-2024 08:26-0500 Respiratory rate 16 /min Hector Currie MD Work Phone: [facility] 08-15-2024 08:26-0500 SaO2% (BldA) [Mass fraction] 96 % Hector Currie MD Work Phone: [facility] 06-14-2024 15:45-0400 Body mass index (BMI) [Ratio] 43.99 kg/m2 Liudmila Lisa TIMBER MILL WORKER.SECURITIES SUPERVISOR Work Phone: [facility] 06-14-2024 15:45-0400 Body weight 155.4 kg Liudmila Lisa TIMBER MILL WORKER.SECURITIES SUPERVISOR Work Phone: [facility] 06-14-2024 15:45-0400 Diastolic blood pressure 74 mm[Hg] Liudmila Lisa TIMBER MILL WORKER.SECURITIES SUPERVISOR Work Phone: [facility] 06-14-2024 15:45-0400 Heart rate 88 /min Liudmila Lisa TIMBER MILL WORKER.SECURITIES SUPERVISOR Work Phone: [facility] 06-14-2024 15:45-0400 Respiratory rate 18 /min Liudmila Lisa TIMBER MILL WORKER.SECURITIES SUPERVISOR Work Phone: [facility] 06-14-2024 15:45-0400 Systolic blood pressure 124 mm[Hg] Liudmila Lisa TIMBER MILL WORKER.SECURITIES SUPERVISOR Work Phone: [facility] 05-09-2024 12:31-0400 Body mass index (BMI) [Ratio] 44.24 kg/m2 Krislykeily Aberegg PA Work Phone: [facility] 05-09-2024 12:31-0400 Body temperature 98.2 [degF] Krislyn Aberegg PA Work Phone: [facility] 05-09-2024 12:31-0400 Body weight 156.3 kg Krislykeily Abkathygg PA Work Phone: [facility] 05-09-2024 12:31-0400 Diastolic blood pressure 66 mm[Hg] Krislyn Aberegg PA Work Phone: [facility] 05-09-2024 12:31-0400 Heart rate 98 /min Krislyn Aberegg PA Work Phone: [facility] 05-09-2024 12:31-0400 Respiratory rate 18 /min Krislyn Aberegg PA Work Phone: [facility] 05-09-2024 12:31-0400 SaO2% (BldA) [Mass fraction] 96 % Krislyn Aberegg PA Work Phone: [facility] 05-09-2024 12:31-0400 Systolic blood pressure 120 mm[Hg] Krislyn Aberegg PA Work Phone: [facility] 04-05-2024 14:39-0400 Body mass index (BMI) [Ratio] 45.71 kg/m2 Hector Currie MD Work Phone: [facility] 04-05-2024 14:39-0400 Body temperature 97.39 [degF] Hector Currie MD Work Phone: [facility] 04-05-2024 14:39-0400 Body weight 161.5 kg Hector Currie MD Work Phone: [facility] 04-05-2024 14:39-0400 Diastolic blood pressure 78 mm[Hg] Hector Currie MD Work Phone: [facility] 04-05-2024 14:39-0400 Heart rate 90 /min Hector Currie MD Work Phone: [facility] 04-05-2024 14:39-0400 Respiratory rate 18 /min Hector Currie MD Work Phone: [facility] 04-05-2024 14:39-0400 SaO2% (BldA) [Mass fraction] 96 % Hector Currie MD Work Phone: [facility] 04-05-2024 14:39-0400 Systolic blood pressure 112 mm[Hg] Hector Currie MD Work Phone: [facility] 12-01-2023 18:39-0400 Body mass index (BMI) [Ratio] 46.09 kg/m2 Hector Currie MD Work Phone: [facility] 12-01-2023 18:39-0400 Body weight 162.84 kg Hector Currie MD Work Phone: [facility] 12-01-2023 18:39-0400 Diastolic blood pressure 64 mm[Hg] Hector Currie MD Work Phone: [facility] 12-01-2023 18:39-0400 Heart rate 104 /min Hector Currie MD Work Phone: [facility] 12-01-2023 18:39-0400 Respiratory rate 16 /min Hector Currie MD Work Phone: [facility] 12-01-2023 18:39-0400 SaO2% (BldA) [Mass fraction] 96 % Hector Currie MD Work Phone: [facility] 12-01-2023 18:39-0400 Systolic blood pressure 118 mm[Hg] Hector Currie MD Work Phone: [facility] 11-06-2023 10:07-0400 Body temperature 98.49 [degF] Anneliese Francisco TIMBER MILL WORKER.SECURITIES SUPERVISOR Work Phone: [facility] 11-06-2023 10:07-0400 Body weight 164 kg Anneliese Francisco TIMBER MILL WORKER.SECURITIES SUPERVISOR Work Phone: [facility] 11-06-2023 10:07-0400 Diastolic blood pressure 69 mm[Hg] Anneliese Francisco TIMBER MILL WORKER.SECURITIES SUPERVISOR Work Phone: [facility] 11-06-2023 10:07-0400 Heart rate 106 /min Anneliese Francisco TIMBER MILL WORKER.SECURITIES SUPERVISOR Work Phone: [facility] 11-06-2023 10:07-0400 Respiratory rate 20 /min Anneliese Francisco TIMBER MILL WORKER.SECURITIES SUPERVISOR Work Phone: [facility] 11-06-2023 10:07-0400 SaO2% (BldA) [Mass fraction] 95 % Anneliese Francisco TIMBER MILL WORKER.SECURITIES SUPERVISOR Work Phone: [facility] 11-06-2023 10:07-0400 Systolic blood pressure 110 mm[Hg] Anneliese Francisco TIMBER MILL WORKER.SECURITIES SUPERVISOR Work Phone: [facility] 09-28-2023 10:55-0500 Body weight 159.67 kg Carmelita Thomas TIMBER MILL WORKER.SECURITIES SUPERVISOR Work Phone: [facility] 05-23-2023 15:28-0400 Body temperature 97.3 [degF] Sreekanth Ackerman MD Work Phone: [facility] 05-23-2023 15:28-0400 Body weight 162.66 kg Sreekanth Ackerman MD Work Phone: [facility] 05-23-2023 15:28-0400 Diastolic blood pressure 80 mm[Hg] Sreekanth Ackerman MD Work Phone: [facility] 05-23-2023 15:28-0400 Heart rate 94 /min Sreekanth Ackerman MD Work Phone: [facility] 05-23-2023 15:28-0400 Respiratory rate 16 /min Sreekanth Ackerman MD Work Phone: [facility] 05-23-2023 15:28-0400 Systolic blood pressure 122 mm[Hg] Sreekanth Ackerman MD Work Phone: [facility] 02-13-2023 16:33-0400 Body temperature 97.81 [degF] Celso Smith TIMBER MILL WORKER.SECURITIES SUPERVISOR Work Phone: [facility] 02-13-2023 16:33-0400 Body weight 166.56 kg Celso Smith TIMBER MILL WORKER.SECURITIES SUPERVISOR Work Phone: [facility] 02-13-2023 16:33-0400 Diastolic blood pressure 68 mm[Hg] Celso Smith TIMBER MILL WORKER.SECURITIES SUPERVISOR Work Phone: [facility] 02-13-2023 16:33-0400 Heart rate 110 /min Celso Smith TIMBER MILL WORKER.SECURITIES SUPERVISOR Work Phone: [facility] 02-13-2023 16:33-0400 Respiratory rate 20 /min Celso Smith TIMBER MILL WORKER.SECURITIES SUPERVISOR Work Phone: [facility] 02-13-2023 16:33-0400 SaO2% (BldA) [Mass fraction] 98 % Celso Smith TIMBER MILL WORKER.SECURITIES SUPERVISOR Work Phone: [facility] 02-13-2023 16:33-0400 Systolic blood pressure 122 mm[Hg] Celso Smith TIMBER MILL WORKER.SECURITIES SUPERVISOR Work Phone: [facility] 12-26-2022 11:04-0400 Body weight 168.28 kg Carmelitaslick Tracytatiana TIMBER MILL WORKER.SECURITIES SUPERVISOR Work Phone: [facility] 12-17-2022 16:47-0400 Body temperature 98.2 [degF] Madelaine Athy PA-C Work Phone: [facility] 12-17-2022 16:47-0400 Body weight 168.38 kg Madelaine Athy PA-C Work Phone: [facility] 12-17-2022 16:47-0400 Diastolic blood pressure 78 mm[Hg] Madelaine Athy PA-C Work Phone: [facility] 12-17-2022 16:47-0400 Heart rate 94 /min Madelaine Athy PA-C Work Phone: [facility] 12-17-2022 16:47-0400 Respiratory rate 18 /min Madelaine Athy PA-C Work Phone: [facility] 12-17-2022 16:47-0400 SaO2% (BldA) [Mass fraction] 96 % Madelaine Athy PA-C Work Phone: [facility] 12-17-2022 16:47-0400 Systolic blood pressure 118 mm[Hg] Madelaine Mancuso PA-C Work Phone: [facility] 11-17-2022 17:34-0400 Body temperature 98.29 [degF] Sreekanth Ackerman MD Work Phone: [facility] 11-17-2022 17:34-0400 Body weight 166.92 kg Sreekanth Ackerman MD Work Phone: [facility] 11-17-2022 17:34-0400 Diastolic blood pressure 84 mm[Hg] Sreekanth Ackerman MD Work Phone: [facility] 11-17-2022 17:34-0400 Heart rate 112 /min Sreekanth Ackerman MD Work Phone: [facility] 11-17-2022 17:34-0400 Respiratory rate 18 /min Sreekanth Ackerman MD Work Phone: [facility] 11-17-2022 17:34-0400 SaO2% (BldA) [Mass fraction] 96 % Sreekanth Ackerman MD Work Phone: [facility] 11-17-2022 17:34-0400 Systolic blood pressure 132 mm[Hg] Sreekanth Ackerman MD Work Phone: [facility] 11-04-2022 18:39-0400 Body temperature 97.81 [degF] Hector Currie MD Work Phone: [facility] 11-04-2022 18:39-0400 Body weight 167.83 kg Hector Currie MD Work Phone: [facility] 11-04-2022 18:39-0400 Diastolic blood pressure 82 mm[Hg] Hector Currie MD Work Phone: [facility] 11-04-2022 18:39-0400 Heart rate 79 /min Hector Currie MD Work Phone: [facility] 11-04-2022 18:39-0400 Respiratory rate 18 /min Hector Currie MD Work Phone: [facility] 11-04-2022 18:39-0400 SaO2% (BldA) [Mass fraction] 96 % Hector Currie MD Work Phone: [facility] 11-04-2022 18:39-0400 Systolic blood pressure 134 mm[Hg] Hector Currie MD Work Phone: [facility] 10-03-2022 13:01-0500 Body weight 171.91 kg Carmelita Thomas TIMBER MILL WORKER.SECURITIES SUPERVISOR Work Phone: [facility] 09-26-2022 15:52-0500 Body weight 171.91 kg Sarah Herrmann TIMBER MILL WORKER.DIMENSION STONE QUARRY SUPERVISOR Work Phone: [facility] 09-26-2022 15:52-0500 Diastolic blood pressure 80 mm[Hg] Sarah Herrmann TIMBER MILL WORKER.DIMENSION STONE QUARRY SUPERVISOR Work Phone: [facility] 09-26-2022 15:52-0500 Heart rate 102 /min Sarah Herrmann TIMBER MILL WORKER.DIMENSION STONE QUARRY SUPERVISOR Work Phone: [facility] 09-26-2022 15:52-0500 Respiratory rate 16 /min Sarah Herrmann TIMBER MILL WORKER.DIMENSION STONE QUARRY SUPERVISOR Work Phone: [facility] 09-26-2022 15:52-0500 SaO2% (BldA) [Mass fraction] 96 % Sarah Herrmann TIMBER MILL WORKER.DIMENSION STONE QUARRY SUPERVISOR Work Phone: [facility] 09-26-2022 15:52-0500 Systolic blood pressure 120 mm[Hg] Sarah Herrmann TIMBER MILL WORKER.DIMENSION STONE QUARRY SUPERVISOR Work Phone: [facility] 09-17-2022 15:44-0500 Body temperature 98.01 [degF] Liudmila Lisa TIMBER MILL WORKER.SECURITIES SUPERVISOR Work Phone: [facility] 09-17-2022 15:44-0500 Body weight 172.09 kg Liudmila Lisa TIMBER MILL WORKER.SECURITIES SUPERVISOR Work Phone: [facility] 09-17-2022 15:44-0500 Diastolic blood pressure 88 mm[Hg] Liudmila Lisa TIMBER MILL WORKER.SECURITIES SUPERVISOR Work Phone: [facility] 09-17-2022 15:44-0500 Heart rate 119 /min Liudmila Lisa TIMBER MILL WORKER.SECURITIES SUPERVISOR Work Phone: [facility] 09-17-2022 15:44-0500 Respiratory rate 20 /min Liudmila Lisa TIMBER MILL WORKER.SECURITIES SUPERVISOR Work Phone: [facility] 09-17-2022 15:44-0500 SaO2% (BldA) [Mass fraction] 97 % Liudmila Lisa TIMBER MILL WORKER.SECURITIES SUPERVISOR Work Phone: [facility] 09-17-2022 15:44-0500 Systolic blood pressure 146 mm[Hg] Liudmila Lisa TIMBER MILL WORKER.SECURITIES SUPERVISOR Work Phone: [facility] 09-16-2022 09:50-0500 Heart rate 110 /min [facility] 09-16-2022 09:50-0500 Respiratory rate 22 /min [facility] 09-16-2022 09:03-0500 SaO2% (BldA) [Mass fraction] 96 % [facility] 09-16-2022 08:45-0500 Body height 187.96 cm [facility] 09-16-2022 08:45-0500 Body mass index (BMI) [Ratio] 50.1 kg/m2 [facility] 09-16-2022 08:45-0500 Body temperature 97.5 [degF] [facility] 09-16-2022 08:45-0500 Body weight 176.9 kg [facility] 09-16-2022 08:45-0500 Diastolic blood pressure 92 mm[Hg] [facility] 09-16-2022 08:45-0500 Systolic blood pressure 154 mm[Hg] [facility] 07-22-2022 11:11-0500 Body weight 175.09 kg Sarah Herrmann TIMBER MILL WORKER.DIMENSION STONE QUARRY SUPERVISOR Work Phone: [facility] 07-22-2022 11:11-0500 Diastolic blood pressure 88 mm[Hg] Sarah Herrmann TIMBER MILL WORKER.DIMENSION STONE QUARRY SUPERVISOR Work Phone: [facility] 07-22-2022 11:11-0500 Heart rate 84 /min Sarah Herrmann TIMBER MILL WORKER.DIMENSION STONE QUARRY SUPERVISOR Work Phone: [facility] 07-22-2022 11:11-0500 Respiratory rate 26 /min Sarah Herrmann TIMBER MILL WORKER.DIMENSION STONE QUARRY SUPERVISOR Work Phone: [facility] 07-22-2022 11:11-0500 Systolic blood pressure 124 mm[Hg] Sarah Herrmann TIMBER MILL WORKER.DIMENSION STONE QUARRY SUPERVISOR Work Phone: [facility] 05-13-2022 18:15-0400 Body weight 171.91 kg Hector Currie MD Work Phone: [facility] 05-13-2022 18:15-0400 Diastolic blood pressure 72 mm[Hg] Hector Currie MD Work Phone: [facility] 05-13-2022 18:15-0400 Heart rate 92 /min Hector Currie MD Work Phone: [facility] 05-13-2022 18:15-0400 SaO2% (BldA) [Mass fraction] 97 % Hector Currie MD Work Phone: [facility] 05-13-2022 18:15-0400 Systolic blood pressure 112 mm[Hg] Hector Currie MD Work Phone: [facility] 05-01-2022 16:12-0400 Body temperature 97.81 [degF] Alyssa Callow TIMBER MILL WORKER.SECURITIES SUPERVISOR Work Phone: [facility] 05-01-2022 16:12-0400 Body weight 167.92 kg Alyssa Callow TIMBER MILL WORKER.SECURITIES SUPERVISOR Work Phone: [facility] 05-01-2022 16:12-0400 Diastolic blood pressure 80 mm[Hg] Alyssa Callow TIMBER MILL WORKER.SECURITIES SUPERVISOR Work Phone: [facility] 05-01-2022 16:12-0400 Heart rate 108 /min Alyssa Callow TIMBER MILL WORKER.SECURITIES SUPERVISOR Work Phone: [facility] 05-01-2022 16:12-0400 Respiratory rate 18 /min Alyssa Callow TIMBER MILL WORKER.SECURITIES SUPERVISOR Work Phone: [facility] 05-01-2022 16:12-0400 SaO2% (BldA) [Mass fraction] 97 % Alyssa Hernandez TIMBER MILL WORKER.SECURITIES SUPERVISOR Work Phone: [facility] 05-01-2022 16:12-0400 Systolic blood pressure 132 mm[Hg] Alyssa Hernandez APRN.SECURITIES SUPERVISOR Work Phone: [facility] 03-05-2022 10:00-0400 Body temperature 97.2 [degF] Jaret King MD Work Phone: [facility] 03-05-2022 10:00-0400 Diastolic blood pressure 62 mm[Hg] Jaret King MD Work Phone: [facility] 03-05-2022 10:00-0400 Heart rate 88 /min Jaret King MD Work Phone: [facility] 03-05-2022 10:00-0400 Respiratory rate 20 /min Jaret King MD Work Phone: [facility] 03-05-2022 10:00-0400 SaO2% (BldA) [Mass fraction] 95 % Jaret King MD Work Phone: [facility] 03-05-2022 10:00-0400 Systolic blood pressure 122 mm[Hg] Jaret King MD Work Phone: [facility] 02-05-2022 08:11-0400 Body height 188 cm Pacc 1 Work Phone: [facility] 02-05-2022 08:11-0400 Body temperature 98.71 [degF] Pacc 1 Work Phone: [facility] 02-05-2022 08:11-0400 Body weight 174.18 kg Pacc 1 Work Phone: [facility] 02-05-2022 08:11-0400 Diastolic blood pressure 82 mm[Hg] Pacc 1 Work Phone: [facility] 02-05-2022 08:11-0400 Heart rate 114 /min Pacc 1 Work Phone: [facility] 02-05-2022 08:11-0400 Respiratory rate 16 /min Pacc 1 Work Phone: [facility] 02-05-2022 08:11-0400 SaO2% (BldA) [Mass fraction] 96 % Pacc 1 Work Phone: [facility] 02-05-2022 08:11-0400 Systolic blood pressure 140 mm[Hg] Pacc 1 Work Phone: [facility] 12-03-2021 08:48-0400 Body height 186 cm Roseanna Ross TIMBER MILL WORKER.SECURITIES SUPERVISOR Work Phone: [facility] 12-03-2021 08:48-0400 Body weight 178.26 kg Roseanna Ross TIMBER MILL WORKER.SECURITIES SUPERVISOR Work Phone: [facility] 12-03-2021 08:48-0400 Diastolic blood pressure 80 mm[Hg] Roseanna Ross TIMBER MILL WORKER.SECURITIES SUPERVISOR Work Phone: [facility] 12-03-2021 08:48-0400 Heart rate 102 /min Roseanna Ross TIMBER MILL WORKER.SECURITIES SUPERVISOR Work Phone: [facility] 12-03-2021 08:48-0400 SaO2% (BldA) [Mass fraction] 96 % Roseanna Ross TIMBER MILL WORKER.SECURITIES SUPERVISOR Work Phone: [facility] 12-03-2021 08:48-0400 Systolic blood pressure 132 mm[Hg] Roseanna Ross TIMBER MILL WORKER.SECURITIES SUPERVISOR Work Phone: [facility] 07-07-2017 11:27-0500 BMI (Body Mass Index) 43.74 kg/m2 [facility] Work Phone: 07-07-2017 11:27-0500 Height 190.5 cm [facility] Work Phone: 07-07-2017 11:27-0500 Weight 158.76 kg [facility] Work Phone: Encounters Encounter Date Encounter Type Care Provider Facility Start: 05-05-2025 End: 05-05-2025 Telephone encounter Hector Currie MD Work Phone: [facility] [place] Comment on above: Orders Start: 04-21-2025 End: 04-21-2025 Office outpatient visit 25 minutes Sarah Herrmann APRN.DIMENSION STONE QUARRY SUPERVISOR Work Phone: [facility] [place] Comment on above: Controlled type 2 di [...] hyperlipidemia type Start: 04-21-2025 End: 04-21-2025 ambulatory [facility] Facility:[facility] Start: 02-07-2025 End: 02-07-2025 Refill Hector Currie MD Work Phone: [facility] [place] Comment on above: Refill Request Start: 12-22-2024 End: 02-21-2025 Follow-up encounter Sarah Herrmann APRN.DIMENSION STONE QUARRY SUPERVISOR Work Phone: [facility] [place] Start: 12-20-2024 End: 12-20-2024 [facility] Facility:[facility] Start: 12-20-2024 End: 12-20-2024 Office outpatient visit 25 minutes Sarah Herrmann APRN.DIMENSION STONE QUARRY SUPERVISOR Work Phone: [facility] [place] Comment on [...] Start: 12-20-2024 End: 12-20-2024 ambulatory HECTOR CURRIE Facility:[facility] Start: 11-30-2024 End: 11-30-[address] Hector Currie MD Work Phone: [facility] Work Phone: Start: 11-30-2024 End: 11-30-[address] Rachid Mary MD -Radiology, [facility] Work Phone: Start: 11-30-2024 End: 11-30-2024 ambulatory Rachid Mary Facility:[facility] Start: 11-14-2024 End: 11-14-2024 Refill Hector Currie MD Work Phone: [address] [place] [address] Comment on above: Refill Request Start: 10-11-2024 End: 12-11-2024 Follow-up encounter Celso Smith APRN.CNP Work Phone: [facility] Start: 10-10-2024 End: 10-10-2024 ambulatory HECTOR CURRIE Facility:[facility] Start: 10-10-2024 End: 10-10-2024 Patient encounter procedure Brandee Mcmanus APRN.CNP Work Phone: [facility] Comment on above: Flu-like symptoms (P rimary Dx); Acute upper respiratory infection, unspecified; Influenza A Start: 08-15-2024 End: 08-18-2024 Telephone encounter Hector Currie MD Work Phone: [facility] [place] Comment on above: Patient Request Start: 08-15-2024 End: 08-15-2024 ambulatory HECTOR CURRIE Facility:[facility] Start: 08-15-2024 End: 08-15-2024 Office outpatient [...] Start: 08-15-2024 End: 08-15-2024 ambulatory HECTOR CURRIE Facility:[facility] Start: 08-09-2024 End: 08-10-2024 Refill Liudmila Breaux APRN.CNP Work Phone: [facility] [place] Comment on above: Refill Request Start: 07-30-2024 End: 07-30-2024 [facility] Start: 07-28-2024 End: 08-01-2024 Refill Sarah Herrmann APRN.CNS Work Phone: Internal [facility] Comment on above: Refill Request Start: 07-12-2024 End: 07-13-2024 Refill Hector Currie MD Work Phone: [facility] [place] Comment on above: Refill Request Start: 07-04-2024 End: 07-04-2024 Telephone encounter Liudmila Breaux APRN.CNP Work Phone: Internal [facility] Comment on above: Results - Sleep Stud y Start: 06-29-2024 End: 06-29-2024 ambulatory Hector Currie Facility:[facility] Start: 06-17-2024 End: 06-20-2024 Telephone encounter Hector Currie MD Work Phone: [facility] [place] Comment on above: Electronic Communica tion Start: 06-14-2024 End: 06-14-2024 ambulatory LIUDMILA BREAUX Facility:[facility] Start: 06-14-2024 End: 06-14-2024 Patient encounter procedure Liudmila Breaux APRN.CNP Work Phone: [facility] [place] Comment on above: DWIGHT (obstructive sle ep apnea) (Primary Dx); Class 3 severe obesity due to excess calories with body mass index (BMI) of 40.0 to 44.9 in adult, unspecified whether serious comorbidity present (HCC) Start: 05-09-2024 End: 05-09-2024 Patient encounter procedure Rosalinda CARR Work Phone: [facility] Comment on above: Sore throat (Primary Dx) Start: 04-05-2024 End: 04-05-2024 Office outpatient visit 25 minutes Hector Currie MD Work Phone: [facility] [place] Comment on above: Controlled type 2 di abetes mellitus without complication, without long-term current use of insulin (HCC) (Primary Dx); Class 3 severe obesity without serious comorbidity with body mass index (BMI) of 45.0 to 49.9 in adult, unspecified obesity type (HCC); Primary hypertension; Rash; DWIGHT (obstructive sleep apnea) Start: 03-26-2024 Transcribe Orders Aidee toro Work Phone: [facility] Comment on above: 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 (Primary Dx) Start: 02-08-2024 ambulatory Hector montesinos MD Work Phone: [facility] [place] Comment on above: Trulicity Start: 12-01-2023 End: 12-01-2023 Office outpatient visit 25 minutes Hector Currie MD Work Phone: [facility] [place] Comment on above: Controlled type 2 di abetes mellitus without complication, without long-term current use of insulin (HCC) (Primary Dx); Rash; Class 3 severe obesity due to excess calories with body mass index (BMI) of 45.0 to 49.9 in adult, unspecified whether serious comorbidity present (HCC); History of RSV infection Start: 11-06-2023 End: 11-06-2023 Subsequent hospital visit by physician Xr [facility] [place] Work Phone: Radiology Comment on above: URI, acute [J06.9] Start: 11-06-2023 End: 11-06-2023 Patient encounter procedure Anneliese Francisco APRN.CNP Work Phone: [facility] Comment on above: URI, acute (Primary Dx); Acute cough Start: 10-23-2023 ambulatory Carmelita Thomas APRN.SECURITIES SUPERVISOR Work Phone: General Surgery Comment on above: Trulicity Start: 10-22-2023 End: 10-22-2023 ambulatory [facility] Work Phone: Start: 10-22-2023 End: 10-22-2023 Patient encounter procedure [facility] Work Phone: Start: 10-12-2023 Telephone encounter Carmelita simpson TIMBER MILL WORKER.SECURITIES SUPERVISOR Work Phone: General Surgery Start: 09-28-2023 End: 09-28-2023 ambulatory Carmelita Thomas APRN.SECURITIES SUPERVISOR Work Phone: General Surgery Comment on above: Class 3 severe obesi ty without serious comorbidity with body mass index (BMI) of 45.0 to 49.9 in adult, unspecified obesity type (HCC) (Primary Dx); Controlled type 2 diabetes mellitus without complication, without long-term current use of insulin (HCC) Start: 09-28-2023 End: 09-28-2023 Telemedicine consultation with patient Carmelita Thomas APRN.SECURITIES SUPERVISOR Work Phone: [facility] Start: 09-16-2023 Telephone encounter Hector willis MD Work Phone: [facility] [place] Comment on above: Insurance Authorizat ion Start: 08-10-2023 End: 08-10-2023 ambulatory [facility] Work Phone: Start: 08-10-2023 End: 08-10-2023 Patient encounter procedure [facility] Work Phone: Start: 07-15-2023 Telephone encounter Hector willis MD Work Phone: [facility] [place] Comment on above: Patient to resume PA P Start: 05-23-2023 End: 05-23-2023 Patient encounter procedure Sreekanth Ackerman MD Work Phone: [facility] Comment on above: Toothache (Primary D x) Start: 02-13-2023 End: 02-13-2023 Subsequent hospital visit by physician Xr [facility] [place] Work Phone: Radiology Comment on above: Foot pain, left [[id number] .[id number]] Start: 02-13-2023 End: 02-13-2023 Patient encounter procedure Celso Smith APRN.SECURITIES SUPERVISOR Work Phone: [facility] Comment on above: Acute left ankle tej n (Primary Dx); Foot pain, left Start: 12-26-2022 Telephone encounter Hector willis MD Work Phone: [facility] [place] Comment on above: [employer]ics for [place] dropped off Start: 12-26-2022 End: 12-26-2022 ambulatory Carmelita Simpsonmiantatiana SECURITIES SUPERVISOR Work Phone: General Surgery Comment on above: Class 3 severe obesi ty without serious comorbidity with body mass index (BMI) of 45.0 to 49.9 in adult, unspecified obesity type (HCC) (Primary Dx); Prediabetes Start: 12-26-2022 End: 12-26-2022 Telemedicine consultation with patient Carmelita Thomas APRN.SECURITIES SUPERVISOR Work Phone: [facility] Start: 12-17-2022 End: 12-17-2022 Subsequent hospital visit by physician Xr [facility] [place] Work Phone: Radiology Comment on above: Open wound of left f oot excluding toes without complication, initial encounter [S91.302A] Start: 12-17-2022 End: 12-17-2022 Patient encounter procedure Madelaine Mancuso PA-C Work Phone: [facility] Comment on above: Puncture wound of le ft foot with foreign body, initial encounter (Primary Dx) Start: 12-04-2022 Refill Hector montesinos MD Work Phone: Internal [facility] [place] Comment on above: Refill Request Start: 11-18-2022 Telephone encounter Madelaine nova PA-C Work Phone: [facility] Comment on above: Results Start: 11-17-2022 End: 11-17-2022 Patient encounter procedure Sreekanth Ackerman MD Work Phone: [facility] Comment on above: URI, acute (Primary Dx); [...] Start: 10-03-2022 End: 10-03-2022 ambulatory Carmelita Thomas APRN.SECURITIES SUPERVISOR Work Phone: General Surgery Comment on above: Class 3 severe obesi ty without serious comorbidity with body mass index (BMI) of 45.0 to 49.9 in adult, unspecified obesity type (HCC) (Primary Dx); Prediabetes; Primary hypertension; DWIGHT (obstructive sleep apnea); Gastroesophageal reflux disease, unspecified whether esophagitis present Start: 10-03-2022 End: 10-03-2022 Telemedicine consultation with patient Carmelita William CARNEYSECURITIES SUPERVISOR Work Phone: [facility] Start: 09-26-2022 End: 09-26-2022 Patient encounter procedure Sarah Herrmann APRN.DIMENSION STONE QUARRY SUPERVISOR Work Phone: Internal Medicine [place] Comment on above: Excessive cerumen in ear canal, right (Primary Dx); Impacted cerumen of left ear Start: 09-17-2022 End: 09-17-2022 Patient encounter procedure Liudmila Breaux TIMBER MILL WORKER.SECURITIES SUPERVISOR Work Phone: [facility] [place] Comment on above: Gastroesophageal ref lux disease, unspecified whether esophagitis present (Primary Dx); Atypical chest pain; Class 3 severe obesity due to excess calories with body mass index (BMI) of 45.0 to 49.9 in adult, unspecified whether serious comorbidity present (HCC) Start: 09-16-2022 End: 09-16-2022 Emergency department patient visit [facility]Emergency Department Start: 07-25-2022 Telephone encounter Sarah blackwell TIMBER MILL WORKER.DIMENSION STONE QUARRY SUPERVISOR Work Phone: Internal [facility] [place] Comment on above: Results Start: 07-22-2022 End: 07-22-2022 Office outpatient visit 25 minutes Sarah Herrmann TIMBER MILL WORKER.DIMENSION STONE QUARRY SUPERVISOR Work Phone: Internal Medicine [place] Comment on above: Essential hypertensi on (Primary [...] Hector willis MD Work Phone: Internal Medicine [place] Comment on above: Lab Orders Start: 05-13-2022 End: 05-13-2022 Office outpatient visit 25 minutes Hector Currie MD Work Phone: Internal [facility] [place] Comment on above: BAJWA (dyspnea on exer tion) (Primary Dx); Essential hypertension; Class 3 severe obesity due to excess calories with body mass index (BMI) of 45.0 to 49.9 in adult, unspecified whether serious comorbidity present (HCC); Mild intermittent asthma without complication; Encounter for immunization; Reactive depression Start: 05-01-2022 End: 05-01-2022 Subsequent hospital visit by physician Xr [facility] [place] Work Phone: Radiology Comment on above: Foot pain, right [M7 9.671] Start: 05-01-2022 End: 05-01-2022 Patient encounter procedure Alyssa Hernandez APRN.SECURITIES SUPERVISOR Work Phone: [facility] Comment on above: Foot pain, right (Pr imary Dx) Start: 04-29-2022 Telephone encounter Ligia Coughlin APRN.CNP Work Phone: Internal Medicine [place] Comment on above: Results Start: 04-25-2022 Orders Only Ligia Older TIMBER MILL WORKER.SECURITIES SUPERVISOR Work Phone: Internal Medicine [place] Comment on above: Bilateral lower extr emity edema (Primary Dx); SOB (shortness of breath) on exertion Start: 04-23-2022 Telephone encounter Ligia Coughlin NADER Work Phone: Internal Medicine [place] Comment on above: Results Start: 04-23-2022 End: 04-23-2022 ambulatory [facility] Work Phone: Start: 04-23-2022 End: 04-23-2022 Patient encounter procedure [facility]-Laboratory, Specimen Start: 04-23-2022 End: 04-23-2022 Subsequent hospital visit by physician Rosas [facility] Work Phone: Radiology Comment on above: SOB (shortness of br eath) on exertion [R06.02] Start: 03-10-2022 Telephone encounter Roseanna Ross APRN.CNP Work Phone: Gastroenterology Comment on above: Results Start: 03-05-2022 End: 03-05-2022 Subsequent hospital visit by physician Jaret King MD Work Phone: [facility] Comment on above: Family history of co nelia cancer [Z80.0] Start: 02-10-2022 Refill Roseanna Ross APRN.CNP Work Phone: Gastroenterology Comment on above: Refill Request Start: 02-05-2022 End: 02-05-2022 [facility] 1 Work Phone: Pre Anesthesia [...] Obesity, Class III, BMI 40-49.9 (morbid obesity) ([facility]) Start: 02-05-2022 End: 02-05-2022 Preprocedural examination done [facility] [place] 1 Work Phone: Pre Anesthesia Start: 12-13-2021 End: 12-13-2021 ambulatory Pavan Hampton PT Work Phone: [facility] Comment on above: Congenital pes planu s, unspecified laterality (Primary Dx) Start: 12-03-2021 End: 12-03-2021 Patient encounter procedure Roseanna Ross TIMBER MILL WORKER.SECURITIES SUPERVISOR Work Phone: Gastroenterology Comment on above: Family history of co nelia cancer in father (Primary Dx); Family history of colon cancer; Colon cancer screening; Dysphagia, unspecified type Procedures Date Procedure Procedure Detail Performing Clinician Start: 11-30-2024 X-ray of lumbar spine, two or three views Dr. Hector Currie MD Work Phone: Start: 10-10-2024 INFLUENZA A&B MOLECULAR (POC) Brandee Lundberg TIMBER MILL WORKER.SECURITIES SUPERVISOR Work Phone: Start: 05-09-2024 STREP A MOLECULAR (POC) Rosalinda CARR Work Phone: Start: 11-06-2023 COVID & INFLUENZA A/B & RSV NAAT, ROUTINE Anneliese Francisco TIMBER MILL WORKER.SECURITIES SUPERVISOR Work Phone: Start: 11-06-2023 Radiologic exam chest 2 views Anneliese mehta TIMBER MILL WORKER.SECURITIES SUPERVISOR Work Phone: Start: 02-13-2023 Radex ankle complete minimum 3 views Celso Smith TIMBER MILL WORKER.SECURITIES SUPERVISOR Work Phone: Start: 12-17-2022 Radex foot complete minimum 3 views Madelaine Mancuso PA-C Work Phone: Start: 09-16-2022 Plain chest X-ray Start: 05-13-2022 INFLUENZA VACCINE QUADRIVALENT 6 MO - 64 YRS IM Hector Currie MD Work Phone: Start: 05-01-2022 Radex foot complete minimum 3 views Francheska Hernandez TIMBER MILL WORKER.SECURITIES SUPERVISOR Work Phone: Start: 04-23-2022 Radiologic exam chest 2 views Ligia M Hers hberger TIMBER MILL WORKER.SECURITIES SUPERVISOR Work Phone: Start: 03-05-2022 Colon ca scrn not hi rsk ind Roseanna Ross TIMBER MILL WORKER.SECURITIES SUPERVISOR Work Phone: Start: 03-05-2022 Esophagogastroduodenoscopy transoral diagnostic Roseanna Ross TIMBER MILL WORKER.SECURITIES SUPERVISOR Work Phone: Plan of Treatment Date Care Activity Detail Author Start: 12-17-2032 Urine microalbumin profile [facility] Start: 04-21-2026 Annual PCP Team Chronic Disease Visit Annual PCP Team Chronic Disease Visit [facility] Start: 04-21-2026 Diabetic foot examination Diabetic Foot Exam [facility] Start: 04-21-2026 Glaucoma screening Dilated Retinal Exam [facility] Start: 12-20-2025 BP Controlled (<130/80) BP Controlled (<130/80) [facility] in Start: 12-20-2025 Diabetic foot examination Diabetic Foot Exam [facility] Start: 12-20-2025 Hepatitis B surface antibody level LDL Cholesterol [facility] Start: 10-21-2025 Hemoglobin A1c measurement HbA1C [facility] Start: 08-16-2025 End: 08-16-2025 Patient encounter procedure 08/16/2025 3:00 PM EST Office Visit [facility] [address] [place], [place] [id number] Hector Currie MD [address] [place], [place] [phone] 4 month follow up [facility] Comment on above: 4 month follow up Start: 08-15-2025 Annual PCP Team Chronic Disease Visit Annual PCP Team Chronic Disease Visit [facility] Start: 08-15-2025 Anxiety Screening Anxiety Screening [facility] Start: 08-15-2025 BP Controlled (<130/80) BP Controlled (<130/80) [facility] Start: 08-15-2025 Hepatitis B screening Urine Albumin:Creatinine Ratio [facility] Start: 07-30-2025 Hepatitis B surface antibody level LDL Cholesterol [facility] Start: 06-21-2025 Hemoglobin A1c measurement HbA1C [facility] Start: 06-14-2025 Annual PCP Team Chronic Disease Visit Annual PCP Team Chronic Disease Visit [facility] Start: 06-14-2025 BP Controlled (<130/80) BP Controlled (<130/80) [facility] Start: 06-14-2025 Covid-19 Vaccine () Covid-19 Vaccine () [facility] Comment on above: Postponed from 04/24/2024 (Declined at t his time) Start: 05-09-2025 BP Controlled (<130/80) BP Controlled (<130/80) [facility] Start: 04-24-2025 Influenza [facility] Start: 04-21-2025 End: 04-21-2025 Patient encounter procedure 04/21/2025 3:40 PM EDT Office Visit [facility] [address] [place], [place] [phone] Hector Currie MD [address] [place], [place] [id number] 4 month follow up [facility] Comment on above: 4 month follow up Start: 04-21-2025 End: 07-21-2025 Hemoglobin A1c in Blood [facility] Work Phone: Comment on above: Expected: 04/21/2025, Expires: Start: 04-05-2025 Annual PCP Team Chronic Disease Visit Annual PCP Team Chronic Disease Visit [facility] Start: 04-05-2025 BP Controlled (<130/80) BP Controlled (<130/80) [facility] Start: 03-26-2025 Hepatitis B surface antibody level LDL Cholesterol [facility] Start: 02-13-2025 Glaucoma screening Dilated Retinal Exam [facility] Comment on above: Postponed from 11/07/2023 (Declined at t his time) Start: 01-28-2025 Hemoglobin A1c measurement HbA1C [facility] Start: 12-20-2024 End: 12-20-2024 Patient encounter procedure [facility] Comment on above: 4 month follow up Start: 12-20-2024 End: 03-21-2025 LIPID PANEL, NONFASTING [facility] Work Phone: Comment on above: Expected: 12/20/2024, Expires: Start: 12-14-2024 Diabetic foot examination Diabetic Foot Exam [facility] Comment on above: Postponed from 2002 (Declined at t his time) Start: 11-30-2024 Annual PCP Team Chronic Disease Visit Annual PCP Team Chronic Disease Visit [facility] Start: 11-30-2024 BP Controlled (<130/80) BP Controlled (<130/80) [facility] Start: 11-22-2024 End: 02-21-2025 CBC panel - Blood by Automated count COMPLETE BLOOD COUNT Lab Routine Controlled type 2 diabetes mellitus without complication, without long-term current use of insulin (HCC) Primary hypertension Expected: 11/22/2024 (Approximate), Expires: 02/21/2025 [facility] Comment on above: Expected: 11/22/2024 (Approximate), Expi res: 02/21/2025 Start: 11-22-2024 End: 02-21-2025 Comprehensive metabolic 2000 panel - Serum or Plasma COMPREHENSIVE METABOLIC PANEL Lab Routine Controlled type 2 diabetes mellitus without complication, without long-term current use of insulin (HCC) Primary hypertension Expected: 11/22/2024 (Approximate), Expires: 02/21/2025 [facility] Comment on above: Expected: 11/22/2024 (Approximate), Expi res: 02/21/2025 Start: 11-22-2024 End: 02-21-2025 Hemoglobin A1c in Blood HEMOGLOBIN A1C Lab Routine Controlled type 2 diabetes mellitus without complication, without long-term current use of insulin (HCC) Expected: 11/22/2024 (Approximate), Expires: 02/21/2025 [facility] Comment on above: Expected: 11/22/2024 (Approximate), Expi res: 02/21/2025 Start: 11-22-2024 End: 02-21-2025 Lipid 1996 panel - Serum or Plasma LIPID PANEL BASIC Lab Routine Controlled type 2 diabetes mellitus without complication, without long-term current use of insulin (HCC) Primary hypertension Expected: 11/22/2024 (Approximate), Expires: 02/21/2025 [facility] Comment on above: Expected: 11/22/2024 (Approximate), Expi res: 02/21/2025 Start: 11-05-2024 BP Controlled (<130/80) BP Controlled (<130/80) [facility] Start: 09-26-2024 Hemoglobin A1c measurement HbA1C [facility] Start: 08-15-2024 End: 11-14-2024 Microalbumin/Creatinine [Mass Ratio] in Urine [facility] Work Phone: Comment on above: Expected: 08/15/2024, Expires: Start: 08-15-2024 End: 08-15-2024 Patient encounter procedure 08/15/2024 8:20 AM EST Office Visit [facility] [address] [place], [place] [phone] Hector Currie MD [address] [place], [place] [phone] 4 month follow up [facility] Comment on above: 4 month follow up Start: 07-27-2024 BP Controlled (<130/80) BP Controlled (<130/80) [facility] Start: 07-27-2024 Hepatitis B surface antibody level LDL Cholesterol [facility] Start: 07-13-2024 Annual PCP Team Chronic Disease Visit Annual PCP Team Chronic Disease Visit [facility] Start: 07-13-2024 BP Controlled (<130/80) BP Controlled (<130/80) [facility] Start: 07-13-2024 Covid-19 Vaccine () Covid-19 Vaccine () [facility] Comment on above: Postponed from 04/24/2023 (Declined at t his time) Start: 07-06-2024 End: 10-05-2024 CBC panel - Blood by Automated count COMPLETE BLOOD COUNT Lab Routine Controlled type 2 diabetes mellitus without complication, without long-term current use of insulin (HCC) Primary hypertension Expected: 07/06/2024 (Approximate), Expires: 10/05/2024 [facility] Comment on above: Expected: 07/06/2024 (Approximate), Expi res: 10/05/2024 Start: 07-06-2024 End: 10-05-2024 Comprehensive metabolic 2000 panel - Serum or Plasma COMPREHENSIVE METABOLIC PANEL Lab Routine Controlled type 2 diabetes mellitus without complication, without long-term current use of insulin (HCC) Primary hypertension Expected: 07/06/2024 (Approximate), Expires: 10/05/2024 [facility] Comment on above: Expected: 07/06/2024 (Approximate), Expi res: 10/05/2024 Start: 07-06-2024 End: 10-05-2024 Hemoglobin A1c in Blood HEMOGLOBIN A1C Lab Routine Controlled type 2 diabetes mellitus without complication, without long-term current use of insulin (HCC) Expected: 07/06/2024 (Approximate), Expires: 10/05/2024 [facility] Work Phone: Comment on above: Expected: 07/06/2024 (Approximate), Expi res: 10/05/2024 Start: 07-06-2024 End: 10-05-2024 Lipid 1996 panel - Serum or Plasma LIPID PANEL BASIC Lab Routine Controlled type 2 diabetes mellitus without complication, without long-term current use of insulin (HCC) Primary hypertension Expected: 07/06/2024 (Approximate), Expires: 10/05/2024 [facility] Comment on above: Expected: 07/06/2024 (Approximate), Expi res: 10/05/2024 Start: 07-06-2024 End: 10-05-2024 Microalbumin/Creatinine [Mass Ratio] in Urine ALBUMIN/CREATININE RATIO, URINE Lab Routine Controlled type 2 diabetes mellitus without complication, without long-term current use of insulin (HCC) Expected: 07/06/2024 (Approximate), Expires: 10/05/2024 [facility] Comment on above: Expected: 07/06/2024 (Approximate), Expi res: 10/05/2024 Start: 04-24-2024 Covid-19 Vaccine () Covid-19 Vaccine () [facility] Start: 04-24-2024 Covid-19 Vaccine () Covid-19 Vaccine () [facility] Start: 04-24-2024 Influenza vaccination Influenza Vaccine (#1) [facility] Start: 04-05-2024 End: 04-05-2024 Patient encounter procedure 04/05/2024 2:40 PM EDT Office Visit [facility] [place] [address] [place] [address] Hector Currie MD [address] [place] [address] 4 month follow up [facility] Comment on above: 4 month follow up Start: 03-26-2024 End: 06-25-2024 Ammonia [Moles/volume] in Plasma [facility] Comment on above: Expected: 03/26/2024, Expires: Start: 03-26-2024 End: 06-25-2024 CBC panel - Blood by Automated count [facility] Comment on above: Expected: 03/26/2024, Expires: Start: 03-26-2024 End: 06-25-2024 Comprehensive metabolic 2000 panel - Serum or Plasma [facility] Work Phone: Comment on above: Expected: 03/26/2024, Expires: Start: 03-26-2024 End: 06-25-2024 Hemoglobin A1c in Blood [facility] Comment on above: Expected: 03/26/2024, Expires: 4 Start: 03-26-2024 End: 06-25-2024 Lipid 1996 panel - Serum or Plasma [facility] Comment on above: Expected: 03/26/2024, Expires: 4 Start: 03-26-2024 End: 06-25-2024 Prolactin [Mass/volume] in Serum or Plasma [facility] Comment on above: Expected: 03/26/2024, Expires: Start: 03-26-2024 End: 06-25-2024 Valproate [Mass/volume] in Serum or Plasma [facility] Comment on above: Expected: 03/26/2024, Expires: 4 Start: 02-14-2024 BP CONTROLLED (<130/80) BP CONTROLLED (<130/80) [facility] Start: 01-26-2024 Hemoglobin A1c measurement HbA1C [facility] Start: 12-18-2023 BP CONTROLLED (<130/80) BP CONTROLLED (<130/80) [facility] Start: 12-01-2023 End: 03-01-2024 ALBUMIN/CREAT RATIO RND UR ALBUMIN/CREAT RATIO RND UR Lab Routine Controlled type 2 diabetes mellitus without complication, without long-term current use of insulin (HCC) Expected: 12/01/2023, Expires: 03/01/2024 [facility] Work Phone: Comment on above: Expected: 12/01/2023, Expires: Start: 11-07-2023 Glaucoma screening Dilated Retinal Exam [facility] Start: 11-05-2023 ANNUAL PCP TEAM CHRONIC DISEASE VISIT ANNUAL PCP TEAM CHRONIC DISEASE VISIT [facility] Start: 09-17-2023 ANNUAL PCP TEAM CHRONIC DISEASE VISIT ANNUAL PCP TEAM CHRONIC DISEASE VISIT [facility] Start: 07-22-2023 COVID-19 VACCINE (4 - Booster for Pfizer series) COVID-19 VACCINE (4 - Booster for Pfizer series) [facility] Comment on above: Postponed from 11/04/2021 (Declined at t his time) Start: 07-22-2023 Covid-19 Vaccine (4 - Pfizer series) Covid-19 Vaccine (4 - Pfizer series) [facility] Comment on above: Postponed from 11/04/2021 (Declined at t his time) Start: 05-13-2023 ANNUAL PCP TEAM CHRONIC DISEASE VISIT ANNUAL PCP TEAM CHRONIC DISEASE VISIT [facility] Start: 05-13-2023 BP CONTROLLED (<130/80) BP CONTROLLED (<130/80) [facility] Start: 04-24-2023 Influenza vaccination Influenza Vaccine (#1) [facility] Start: 04-23-2023 ANNUAL PCP TEAM CHRONIC DISEASE VISIT ANNUAL PCP TEAM CHRONIC DISEASE VISIT [facility] Start: 01-16-2023 End: 07-20-2023 CBC W Auto Differential panel - Blood CBC + DIFF Lab Routine Essential hypertension Gastroesophageal reflux disease, unspecified whether esophagitis present Expected: 01/16/2023 (Approximate), Expires: 07/20/2023 [facility] Work Phone: Comment on above: Expected: 01/16/2023 (Approximate), Expi res: 07/20/2023 Start: 01-16-2023 End: 07-20-2023 Comprehensive metabolic 2000 panel - Serum or Plasma COMP METABOLIC PANEL Lab Routine Essential hypertension Expected: 01/16/2023 (Approximate), Expires: 07/20/2023 [facility] Work Phone: Comment on above: Expected: 01/16/2023 (Approximate), Expi res: 07/20/2023 Start: 01-16-2023 End: 07-20-2023 Hemoglobin A1c in Blood HGB A1C Lab Routine IFG (impaired fasting glucose) Expected: 01/16/2023 (Approximate), Expires: 07/20/2023 [facility] Work Phone: Comment on above: Expected: 01/16/2023 (Approximate), Expi res: 07/20/2023 Start: 01-16-2023 End: 07-20-2023 Tdap vaccine 7 yrs/> im TDAP VACCINE AGE 7+ IM Immunization/Injection Routine Encounter for immunization Expected: 01/16/2023 (Approximate), Expires: 07/20/2023 [facility] Work Phone: Comment on above: Expected: 01/16/2023 (Approximate), Expi res: 07/20/2023 Start: 10-14-2022 ANNUAL PCP TEAM CHRONIC DISEASE VISIT ANNUAL PCP TEAM CHRONIC DISEASE VISIT [facility] Start: 08-25-2022 ONE PNEUMOVAX PRIOR TO AGE 65 ONE PNEUMOVAX PRIOR TO AGE 65 [facility] Comment on above: Postponed from 2011 (Declined at t his time) Start: 08-25-2022 PNEUMOCOCCAL (1 - PCV) PNEUMOCOCCAL (1 - PCV) [facility] Comment on above: Postponed from 1998 (Declined at t his time) Start: 07-23-2022 End: 09-22-2022 CBC panel - Blood by Automated count CBC Lab Routine Essential hypertension Encounter for long-term current use of medication Expected: 07/23/2022, Expires: 09/22/2022 [facility] Work Phone: Comment on above: Expected: 07/23/2022, Expires: Start: 07-23-2022 End: 09-22-2022 Comprehensive metabolic 2000 panel - Serum or Plasma COMP METABOLIC PANEL Lab Routine Essential hypertension IFG (impaired fasting glucose) Encounter for long-term current use of medication Expected: 07/23/2022, Expires: 09/22/2022 [facility] Work Phone: Comment on above: Expected: 07/23/2022, Expires: 3 Start: 07-23-2022 End: 09-22-2022 Hemoglobin A1c in Blood HGB A1C Lab Routine IFG (impaired fasting glucose) Encounter for long-term current use of medication Expected: 07/23/2022, Expires: 09/22/2022 [facility] Work Phone: Comment on above: Expected: 07/23/2022, Expires: 3 Start: 07-23-2022 End: 09-22-2022 Lipid 1996 panel - Serum or Plasma LIPID PANEL BASIC Lab Routine Elevated LDL cholesterol level Encounter for long-term current use of medication Expected: 07/23/2022, Expires: 09/22/2022 [facility] Work Phone: Comment on above: Expected: 07/23/2022, Expires: 3 Start: 07-22-2022 End: 09-21-2022 Thyrotropin [Units/volume] in Serum or Plasma [facility] Work Phone: Comment on above: Expected: 07/22/2022, Expires: 3 Start: 07-14-2022 Urine microalbumin profile DTAP,TDAP,TD (7 - Td or Tdap) [facility] Start: 04-25-2022 End: 06-25-2022 Natriuretic peptide.B prohormone N-Terminal [Mass/volume] in Serum or Plasma [facility] Work Phone: Comment on above: Expected: 04/25/2022, Expires: 2 Start: 04-24-2022 Influenza vaccination INFLUENZA (#1) [facility] Start: 11-06-2021 BP CONTROLLED (<130/80) BP CONTROLLED (<130/80) [facility] Start: 11-04-2021 COVID-19 VACCINE (4 - Booster for Pfizer series) COVID-19 VACCINE (4 - Booster for Pfizer series) [facility] Start: 05-15-2021 ANNUAL PCP TEAM CHRONIC DISEASE VISIT ANNUAL PCP TEAM CHRONIC DISEASE VISIT [facility] Start: 07-07-2017 End: 07-07-2017 Radex spine lumbscrl compl w/bending views min 6 X-Ray, Spine, Lumbar, complete with bending views [facility] Work Phone: Start: 07-07-2017 End: 07-07-2017 Appointment Appointment [facility] Work Phone: Start: 04-24-2012 Medicare Annual Wellness Visit Medicare Annual Wellness Visit [facility] Start: 2010 Anxiety Screening Anxiety Screening [facility] Start: 2002 Diabetic foot examination Diabetic Foot Exam [facility] Start: 2002 Hepatitis B screening Urine Albumin:Creatinine Ratio [facility] Start: 1998 PNEUMOCOCCAL (1 - PCV) PNEUMOCOCCAL (1 - PCV) [facility] ic COVID & INFLUENZA A/ B & RSV PCR, ROUTINE COVID & INFLUENZA A/B & RSV PCR, ROUTINE Microbiology Routine Flu-like symptoms Acute upper respiratory infection, unspecified 10/10/2024 11:33 AM EST [facility] Work Phone: End: 04-29-2023 Echocardiography ECHO Cardiology Routine SOB (shortness of breath) on exertion 1 Occurrences starting 04/29/2022 until 04/29/2023 [facility] Work Phone: Comment on above: 1 Occurrences starting 04/29/2022 until 04/29/2023 End: 12-03-2022 EGD DIAGNOSTIC EGD DIAGNOSTIC Endoscopy Routine Dysphagia, unspecified type 1 Occurrences starting 12/03/2021 until 12/03/2022 [facility] Work Phone: Comment on above: 1 Occurrences starting 12/03/2021 until 12/03/2022 End: 07-20-2025 PAP TITRATION PSG (CPAP, BIPAP, ASV) PAP TITRATION PSG (CPAP, BIPAP, ASV) Procedures Routine DWIGHT (obstructive sleep apnea) 1 Occurrences starting 06/20/2024 until 07/20/2025 [facility] Comment on above: 1 Occurrences starting 06/20/2024 until 07/20/2025 Patient Education ED GERD (Adult) [facility] Work Phone: Patient referral [facility] Work Phone: End: 06-20-2025 Polysomnogram POLYSOMNOGRAM (PSG) Procedures Routine DWIGHT (obstructive sleep apnea) 1 Occurrences starting 06/20/2024 until 06/20/2025 [facility] Work Phone: Comment on above: 1 Occurrences starting 06/20/2024 until 06/20/2025 SARS-CoV-2 (COVID-19 ) RNA [Presence] in Respiratory specimen by EVELIN with probe detection 2019 CORONAVIRUS Microbiology Routine URI, acute Exposure to confirmed case of COVID-19 11/17/2022 6:03 PM EDT [facility] Work Phone: End: 12-03-2022 Screening colonoscopy COLONOSCOPY SCREENING Endoscopy Routine Family history of colon cancer Colon cancer screening Family history of colon cancer in father 1 Occurrences starting 12/03/2021 until 12/03/2022 [facility] Work Phone: Comment on above: 1 Occurrences starting 12/03/2021 until 12/03/2022 SURGICAL PATHOLOGY [facility] Work Phone: Comment on above: Release Upon Ordering for 1 Occurrences starting 03/05/2022, 1 completed [facility] Immunizations Immunization Date Immunization Notes Care Provider Piero trujillo 05-25-2024 influenza, seasonal, injectable, preservative free Liudmila Breaux TIMBER MILL WORKER.SECURITIES SUPERVISOR Work Phone: [facility] 05-25-2024 influenza virus vaccine, unspecified formulation Sarah Herrmann TIMBER MILL WORKER.DIMENSION STONE QUARRY SUPERVISOR Work Phone: [facility] 07-13-2023 influenza, injectabl e, quadrivalent, contains preservative Hector Talampas MD Work Phone: [facility] 07-13-2023 influenza virus vaccine, unspecified formulation Aidee Dasilva Work Phone: [facility] 12-17-2022 tetanus toxoid, redu lacy diphtheria toxoid, and acellular pertussis vaccine, adsorbed Madelaine Bartolome RAMESH Work Phone: [facility] 11-04-2022 pneumococcal Conjuga te, unspecified formulation Hector Currie MD Work Phone: [facility] Work Phone: 11-04-2022 pneumococcal (PCV20) vaccine, 20 valent (PREVNAR 20) Sreekanth Ackerman MD Work Phone: [facility] 05-13-2022 influenza, injectabl e, quadrivalent, contains preservative Hector Currie MD Work Phone: [facility] 05-13-2022 influenza virus vaccine, unspecified formulation Sreekanth Ackerman MD Work Phone: [facility] 10-14-2021 influenza, injectabl e, quadrivalent, preservative free Roseanna Ross APRN.SECURITIES SUPERVISOR Work Phone: [facility] Work Phone: 09-09-2021 COVID-19 original vaccine, age 12+ yr, monovalent (PFIZER-BIONTECH - HOUSER TOP) Hector Currie MD Work Phone: [facility] 11-25-2020 COVID-19 vaccine, ag e 12+ yr (PFIZER-BIONTECH - PURPLE TOP) Roseanna Ross TIMBER MILL WORKER.SECURITIES SUPERVISOR Work Phone: [facility] Work Phone: 11-03-2020 COVID-19 vaccine, ag e 12+ yr (PFIZER-BIONTECH - PURPLE TOP) Roseanna Ross TIMBER MILL WORKER.SECURITIES SUPERVISOR Work Phone: [facility] Work Phone: 06-22-2018 influenza, injectabl e, quadrivalent, contains preservative Roseanna Ross TIMBER MILL WORKER.SECURITIES SUPERVISOR Work Phone: [facility] Work Phone: 10-06-2017 influenza, injectabl e, quadrivalent, contains preservative Roseanna Ross TIMBER MILL WORKER.SECURITIES SUPERVISOR Work Phone: [facility] 09-17-2016 influenza, injectabl e, quadrivalent, preservative free Roseanna Ross TIMBER MILL WORKER.SECURITIES SUPERVISOR Work Phone: [facility] 06-14-2015 influenza, injectabl e, quadrivalent, contains preservative Roseanna Ross TIMBER MILL WORKER.[facility] Work Phone: [facility] 07-12-2014 influenza, seasonal, injectable Roseanna Ross TIMBER MILL WORKER.[facility] Work Phone: [facility] 05-19-2013 influenza virus vaccine, unspecified formulation Roseanna Ross TIMBER MILL WORKER.[facility] Work Phone: [facility] 01-12-2013 human papilloma viru s vaccine, quadrivalent Roseanna Ross TIMBER MILL WORKER.[facility] Work Phone: [facility] 09-14-2012 human papilloma viru s vaccine, quadrivalent Roseanna Ross TIMBER MILL WORKER.[facility] Work Phone: [facility] 07-14-2012 hepatitis A vaccine, unspecified formulation Roseanna Ross TIMBER MILL WORKER.[facility] Work Phone: [facility] Work Phone: 07-14-2012 human papilloma viru s vaccine, quadrivalent Roseanna Ross TIMBER MILL WORKER.SECURITIES SUPERVISOR Work Phone: [facility] Work Phone: 07-14-2012 Meningococcal, MCV4, unspecified conjugate formulation(groups A, C, Y and W-135) Roseanna Ross TIMBER MILL WORKER.[facility] Work Phone: [facility] Work Phone: 07-14-2012 tetanus toxoid, redu lacy diphtheria toxoid, and acellular pertussis vaccine, adsorbed Roseanna Ross TIMBER MILL WORKER.SECURITIES SUPERVISOR Work Phone: [facility] Work Phone: 06-12-2012 influenza virus vaccine, unspecified formulation Roseanna Ross TIMBER MILL WORKER.SECURITIES SUPERVISOR Work Phone: [facility] Work Phone: 06-27-2011 influenza virus vaccine, unspecified formulation Roseanna Ross TIMBER MILL WORKER.SECURITIES SUPERVISOR Work Phone: [facility] 06-20-2010 influenza virus vaccine, unspecified formulation Roseanna Ross TIMBER MILL WORKER.SECURITIES SUPERVISOR Work Phone: [facility] Work Phone: 06-27-2009 novel [id number], preservative-free, injectable Roseanna Ross TIMBER MILL WORKER.[facility] Work Phone: [facility] Work Phone: 05-30-2009 influenza virus vaccine, unspecified formulation Roseanna Ross TIMBER MILL WORKER.[facility] Work Phone: [facility] Work Phone: 08-21-2008 hepatitis A vaccine, unspecified formulation Roseanna Ross TIMBER MILL WORKER.SECURITIES SUPERVISOR Work Phone: [facility] 06-28-2008 influenza virus vaccine, unspecified formulation Roseanna Ross TIMBER MILL WORKER.[facility] Work Phone: [facility] Work Phone: 07-03-2007 influenza virus vaccine, unspecified formulation Roseanna Ross TIMBER MILL WORKER.SECURITIES SUPERVISOR Work Phone: [facility] Work Phone: 05-19-2005 Meningococcal, MCV4, unspecified conjugate formulation(groups A, C, Y and W-135) Roseanna Ross TIMBER MILL WORKER.SECURITIES SUPERVISOR Work Phone: [facility] Work Phone: 03-07-2005 tetanus and diphther ia toxoids, adsorbed, preservative free, for adult use (2 Lf of tetanus toxoid and 2 Lf of diphtheria toxoid) Roseanna Ross TIMBER MILL WORKER.SECURITIES SUPERVISOR Work Phone: [facility] Work Phone: 04-13-1998 diphtheria, tetanus toxoids and pertussis vaccine Roseanna Ross TIMBER MILL WORKER.SECURITIES SUPERVISOR Work Phone: [facility] Work Phone: 04-13-1998 measles, mumps and rubella virus vaccine Roseanna Ross TIMBER MILL WORKER.SECURITIES SUPERVISOR Work Phone: [facility] Work Phone: 04-13-1998 trivalent poliovirus vaccine, live, oral Roseanna Ross TIMBER MILL WORKER.[facility] Work Phone: [facility] Work Phone: 1994 Chicken Pox (disease) Roseanna R anabel TIMBER MILL WORKER.[facility] Work Phone: [facility] Work Phone: 11-07-1993 diphtheria, tetanus toxoids and pertussis vaccine Roseanna Ross TIMBER MILL WORKER.[facility] Work Phone: [facility] Work Phone: 11-07-1993 trivalent poliovirus vaccine, live, oral Roseanna Ross TIMBER MILL WORKER.[facility] Work Phone: [facility] Work Phone: 09-12-1993 haemophilus influenz ae type b vaccine, HbOC conjugate Roseanna Ross TIMBER MILL WORKER.[facility] Work Phone: [facility] Work Phone: 09-12-1993 measles, mumps and rubella virus vaccine Roseanna Ross TIMBER MILL WORKER.[facility] Work Phone: [facility] Work Phone: 02-21-1993 hepatitis B vaccine, pediatric or pediatric/adolescent dosage Roseanna Ross TIMBER MILL WORKER.SECURITIES SUPERVISOR Work Phone: [facility] Work Phone: 1992 diphtheria, tetanus toxoids and pertussis vaccine Roseanna Ross TIMBER MILL WORKER.[facility] Work Phone: [facility] Work Phone: 1992 haemophilus influenz ae type b vaccine, HbOC conjugate Roseanna Ross TIMBER MILL WORKER.[facility] Work Phone: [facility] Work Phone: 1992 diphtheria, tetanus toxoids and pertussis vaccine Roseanna Ross TIMBER MILL WORKER.SECURITIES SUPERVISOR Work Phone: [facility] Work Phone: 1992 haemophilus influenz ae type b vaccine, HbOC conjugate Roseanna Ross TIMBER MILL WORKER.SECURITIES SUPERVISOR Work Phone: [facility] Work Phone: 1992 hepatitis B vaccine, pediatric or pediatric/adolescent dosage Roseanna Ross TIMBER MILL WORKER.SECURITIES SUPERVISOR Work Phone: [facility] Work Phone: 1990 trivalent poliovirus vaccine, live, oral Roseanna Ross TIMBER MILL WORKER.[facility] Work Phone: [facility] Work Phone: 1992 hepatitis B vaccine, pediatric or pediatric/adolescent dosage Roseanna Ross TIMBER MILL WORKER.[facility] Work Phone: [facility] Work Phone: 1992 diphtheria, tetanus toxoids and pertussis vaccine Roseanna Ross TIMBER MILL WORKER.SECURITIES SUPERVISOR Work Phone: [facility] Work Phone: 1990 haemophilus influenz ae type b vaccine, HbOC conjugate Roseanna Ross TIMBER MILL WORKER.SECURITIES SUPERVISOR Work Phone: [facility] Work Phone: 1990 trivalent poliovirus vaccine, live, oral Roseanna Ross TIMBER MILL WORKER.SECURITIES SUPERVISOR Work Phone: [facility] Work Phone: Payers Date Payer Category Payer Self-pay [id number] 2021 Medicaid [id number] 2016 Medicaid [id number] 2012 Medicaid [id number] 2012 Medicare MEDICARE MEDICAR E A AND B [id number] 2012-Present [phone] [place] [address] Medicare [id number] 2012 Medicare [id number] 2012 Medicare [id number] Unknown [id number] Unknown [id number] Social History Date Type Detail Facility Start: 08-11-2016 End: 05-13-2022 Tobacco smoking status NHIS Never smoked tobacco [facility] Work Phone: Start: 12-03-2021 Alcohol intake Current non-drinker of alcohol (finding) [facility] Start: 1990 Sex Assigned At Male [facility] Start: 11-23-2021 End: 07-22-2022 Exposure to SARS-CoV-2 (event) Not sure [facility] Work Phone: Start: 02-05-2022 End: 04-21-2025 Alcohol intake Lifetime non-drinker (finding) [facility] Start: 02-05-2022 History SDOH Alcohol Frequency 1 [facility] Start: 08-11-2016 End: 05-13-2022 Tobacco use and exposure Smokeless tobacco non-user [facility] Work Phone: Start: 07-11-2021 End: 09-16-2022 Tobacco smoking status NHIS Unknown if ever smoked [facility] Start: 12-26-2022 End: 05-23-2023 History of Social function [facility] Start: 12-26-2022 End: 05-23-2023 Tobacco use panel [facility] Start: 07-25-2012 Adult Depression Screening Assessment 0 [facility] Start: 10-13-2021 Gender identity Identifies as male gender (finding) [facility] Start: 10-13-2021 Sexual orientation Heterosexual (finding) [facility] Has the electric, [employer], oil, or water company threatened to shut off services in your home in past 12Mo No [facility] Do you belong to any clubs or organizations such as latter day groups, unions, fraTouchtalent or athletic groups, or school groups? Yes [facility] Are you now , , , , never or living with a partner? Never [facility] How often to you hav e a drink containing alcohol? Never [facility] How hard is it for y ou to pay for the very basics like food, housing, medical care, and heating Not very hard [facility] Do you feel stress - tense, restless, nervous, or anxious, or unable to sleep at night because your mind is troubled all the time - these days [OSQ] Only a little [facility] (I/We) worried anoop er (my/our) food would run out before (I/we) got money to buy more. Never true [facility] Start: 12-07-2024 Sex Male (finding) [facility] Functional Status Date Assessment Result Facility 12-15-2014 Are you deaf, or do you have serious difficulty hearing No 12/15/2014 1:02 PM Milena Sorensen Ma No [facility] 12-15-2014 Are you blind, or do you have serious difficulty seeing, even when wearing glasses No 12/15/2014 1:02 PM Milena Sorensen Ma No [facility] 12-15-2014 Do you have serious difficulty walking or climbing stairs No 12/15/2014 1:02 PM Milena Sorensen Ma No [facility] 12-15-2014 Do you have difficul ty dressing or bathing No 12/15/2014 1:02 PM Milena Sorensen Ma No [facility] 12-15-2014 Because of a physica l, mental, or emotional condition, do you have difficulty doing errands alone such as visiting a physician's office or shopping No 12/15/2014 1:02 PM EDT Milena Quintero Ma No [facility] Mental Status Date Assessment Result Facility 09-16-2022 Cognitive function Voice/Name [place] Work Phone: 12-15-2014 Because of a physica l, mental, or emotional condition, do you have serious difficulty concentrating, remembering, or making decisions Yes 12/15/2014 1:02 PM EDT Milena Quintero Ma Yes [facility] Clinical Notes 09-27-2010 to 05-05-2025 Telephone Encounter - Lilia Barber RN - 05/05/2025 5:04 PM EDTTelephone Encounter - Lilia Barber RN - 05/05/2025 5:04 PM EDTPatient InstructionsPatient InstructionsPatient Instructions Note Date & Type Note Facility 05-05-2025 Telephone encounter Note Mother (Lanie) calls to report that [facility] received Sleep Study results but not order for C-Pap or OV notes. Faxed to [phone] per request. Lilia Barber RN [facility] 05-05-2025 Miscellaneous Notes Mother (Lanie) calls to report that [facility] received Sleep Study results but not order for C-Pap or OV notes. Faxed to [phone] per request. Lilia Barber RN documented in this encounter [facility] 04-21-2025 Instructions Sarah Herrmann APRN.CNS - 04/21/2025 4:07 PM EDT - Continue taking Trulicity as prescribed; your refill has been sent to [facility]. - Begin low-dose rosuvastatin once [...] maintenance. documented in this encounter [facility] 04-21-2025 History of Presen t illness [...] abdominal pain. - Recent eye exam at [facility] on [address] showed minimal changes. - Last A1c [...] sleep study was completed May 2024 at [facility]. BiPAP was recommended. Orders were sent. DME [...] from Trul[facility]. - Recent eye exam at [facility] on [address] showed no significant changes. [...] Moderate documented in this encounter [facility] 04-21-2025 Note HNO ID: [id number] Author: SARAH HERRMANN APRN.CNS Service: ? Author [...] abdominal pain. - Recent eye exam at [facility] on [address] showed minimal changes. - Last A1c [...] sleep study was completed May 2024 at [facility]. BiPAP was recommended. Orders were sent. DME [...] from Trulicity. - Recent eye exam at [facility] on [address] (more content not included)... [facility] 02-07-2025 Telephone encounter Note Prescription Refill [...] February 07, 2025 9:03 AM [facility] 02-07-2025 Miscellaneous Notes Prescription Refill Information [...] AM documented in this encounter [facility] 12-22-2024 Progress note Formatting of t his note might be different from the original. Recent labwork was in acceptable range overall, increased triglycerides non-fasting. [facility] 12-22-2024 Miscellaneous Notes Recent labwork was in acceptable range overall, increased triglycerides non-fasting. documented in this encounter [facility] 12-20-2024 Note HNO ID: [id number] Author: SARAH HERRMANN APRN.CNS Service: ? Author [...] therapy; patient reports effective management. Sarah Herrmann APRN.DIMENSION STONE QUARRY SUPERVISOR Medical Decision Making: Problems: Moderate: 2+ stable chronic illnesses and 1+ chronic illnesses with change Risk: Moderate: Drug management Medical Decision Making Level: 4 - Moderate [facility] 12-20-2024 History of Presen t illness [...] Moderate documented in this encounter [facility] 12-01-2024 Radiology Diagnostic study note [facility] Imaging Services [address] [place], [place] [id number] Lumbar Spine 2 or 3 Views MR#: [id number] Acct: [id number] Name: NIKO BROOKE Rep #: [id number] : 1990 M 34 From: Corina Giraldo MD PCP: Dr. Hector Currie MD Status: RE G CLI Study:Lumbar Spine 2 or 3 Views Date of Exam: 11/30/24 Exam# [id number] Ordering Dr: Isha Mary MD PROCEDURE: LUMBAR [...] levocurvature of the lumbar spine. Reading Location: [facility] CC: Dr. Rachid Mary MD; Dr. Hector Currie MD ~ Alteration Tailor: Signed [facility] 11-14-2024 Telephone encounter Note Prescription Refill Information [...] November 14, 2024 2:58 PM [facility] 11-14-2024 Miscellaneous Notes Prescription Refill Information [...] PM documented in this encounter [facility] 10-10-2024 Note SARS-COV-2 (AGENT OF COVID-19) RNA: Not detected INFLUENZA A RNA: Detected INFLUENZA B RNA: Not detected RESPIRATORY SYNCYTIAL VIRUS (RSV) RNA: Not detected [facility] Comment on above: Performed By: #### 9 [id number] ####[facility] LABCLIA [id number] [place] [address] [place] 10-10-2024 Instructions Brandee Mcmanus APRN.SECURITIES SUPERVISOR - 10/10/2024 11:29 AM EST ASSESSMENT/PLAN: 1. [...] A (POCT) 10/10/2024 Positive (A) Negative Final Location:[facility], [address], [place], [address] Procedural Control 10/10/2024 Valid Final You have [...] Discussed expected course of illness Brandee Mcmanus APRN.[facility] PATIENT INFO INFLUENZA INTRODUCTION Influenza (commonly called the flu) is a highly contagious illness that can occur in children or adults of any age. It occurs more often in the winter months because people spend more time in close contact with one another. The flu is spread easily from [id number] by coughing, sneezing, or touching surfaces. Every [...] age of 65, people who live in chcf care facilities (nursing homes), and those with [...] do not become dehydrated. One way to district associate judge if you are drinking enough is to [...] resistance. documented in this encounter [facility] 10-10-2024 Note HNO ID: [id number] Author: BRANDEE MCMANUS APRN.SECURITIES SUPERVISOR Service: ? Author Type: Nurse Practitioner Type: Progress Notes Filed: 10/10/2024 11:32 Note Text: Subjective Nasal Congestion Associated symptoms include congestion, coughing and shortness of breath. Pertinent negatives include no chills, headaches or sore throat. Nkio Brooke is a 34 year old male [...] Acute upper r (more content not included)... [facility] 10-10-2024 History of Presen t illness [...] A (POCT) 10/10/2024 Positive (A) Negative Final Location:[address], [facility] Procedural Control 10/10/2024 Valid Final You have [...] Discussed expected course of illness Brandee Mcmanus APRN.SECURITIES SUPERVISOR documented in this encounter [facility] 08-18-2024 Telephone encounter Note The following [...] a day. Authorizing Provider: HECTOR CURRIE MD [facility] 08-18-2024 Miscellaneous Notes The following approved [...] RN documented in this encounter [facility] 08-18-2024 Telephone encounter Note Patient's mother calls asking about the status of this request. Patient is needing medications to be sent to pharmacy. Barbara Posada RN [facility] 08-15-2024 Telephone encounter Note Patient's mother Lanie, calling and states patient will be using [facility] now and requesting all of pt's medication be transferred there. Pended. No call back needed if agreeable to send. Lianne Caldwell RN [facility] 08-15-2024 Instructions Hector Currie MD - [...] us. documented in this encounter [facility] 08-15-2024 Note HNO ID: [id number] Author: HECTOR CURRIE MD Service: ? Author Type: Physician Type: Progress Notes Filed: 09/12/2024 18:14 Note Text: This note was created using [employer]. Subjective Niko Brooke is a 34 year [...] a 34-year-old male with a history of DWIGTH, HTN, and GERD, presenting for follow-up. Niko [...] Breath sounds: Cris (more content not included)... [facility] 08-15-2024 History of Presen t illness Narrative This note was created using [employer]. Subjective Niko Brooke is a 34 year [...] in adult, unspecified whether serious comorbidity present ([facility]) (E66.813) - Weight is trending down; patient [...] MD documented in this encounter [facility] 08-09-2024 Telephone encounter Note Patient has [...] Thank you. Madina Webber LPN.' [facility] 08-09-2024 Miscellaneous Notes Patient has been [...] LPN.' documented in this encounter [facility] 07-29-2024 Telephone encounter Note Patient MyChart message requesting the following refill Refill(s) Requested: Requested Prescriptions Pending Prescriptions Disp Refills triamcinolone (KENALOG) 0.025 % cream 30 g 3 Sig: Apply 1 application to affected area two times a day. Up to 14 days per rash ALLERGIES Allergen Reactions Seasonal Allergies Unknown (home) [phone] (cell) Last Office Visit Date: 06/14/2024 Last Distance Health Visit: Visit date not found Future Appointment: 08/15/2024 The patients preferred pharmacy has been captured for this encounter? yes Request is for script(s) to be escript to pharmacy. Teresa Menendez LPN [facility] 07-29-2024 Miscellaneous Notes Patient MyChart message requesting the following refill Refill(s) Requested: Requested Prescriptions Pending Prescriptions Disp Refills triamcinolone (KENALOG) 0.025 % cream 30 g 3 Sig: Apply 1 application to affected area two times a day. Up to 14 days per rash ALLERGIES Allergen Reactions Seasonal Allergies Unknown (home) [phone] (cell) Last Office Visit Date: 06/14/2024 Last Distance Health Visit: Visit date not found Future Appointment: 08/15/2024 The patients preferred pharmacy has been captured for this encounter? yes Request is for script(s) to be escript to pharmacy. Teresa Menendez LPN documented in this encounter [facility] 07-29-2024 Telephone encounter Note Pt coming [...] July 29, 2024 12:36 PM [facility] 07-29-2024 Miscellaneous Notes Pt coming in [...] PM documented in this encounter [facility] 07-13-2024 Telephone encounter Note Prescription Refill [...] mg subcutaneously one time a week. Pauline Quinonez LPN July 13, 2024 8:31 AM [facility] 07-13-2024 Miscellaneous Notes Prescription Refill Information [...] mg subcutaneously one time a week. Pauline Quinonez LPN July 13, 2024 8:31 AM documented in this encounter [facility] 07-04-2024 Telephone encounter Note Orders faxed and mother Lanie, aware of same. [facility] 07-04-2024 Miscellaneous Notes Orders faxed and mother Lanie, aware of same. New orders placed, please send updated orders and updated sleep study results. Thanks. Patient had sleep study completed 06/29/24. Results on Liudmila's desk for review. Fax order for CPAP to [facility]. documented in this encounter [facility] 07-04-2024 Telephone encounter Note New orders placed, please send updated orders and updated sleep study results. Thanks. [facility] 07-04-2024 Telephone encounter Note Patient had sleep study completed 06/29/24. Results on Liudmila's desk for review. Fax order for CPAP to [facility]. [facility] 06-20-2024 Telephone encounter Note Order has been faxed and mother aware of same. [facility] 06-20-2024 Miscellaneous Notes Order has been faxed and mother aware of same. Patient mother Lanie returned call and went over notes below from Liudmila breaux RETAIL ATTENDANT with understanding. Mother is asking to have orders faxed to [facility] Sleep Lab please. Left message for return call. Order placed, prior sleep study done at [facility], please clarify that they would like orders [...] Please let them know the note from [employer]. Thanks. Fax received from [employer] stating the order for the BIPAP has been declined. Mentioning that patient needs a new in lab sleep study and new initial consult notes due to being noncompliant with BIPAP earlier this year. documented in this encounter [facility] 06-20-2024 Telephone encounter Note Patient mother Lanie returned call and went over notes below from Liudmila breaux RETAIL ATTENDANT with understanding. Mother is asking to have orders faxed to [facility] Sleep [facility] please. [facility] 06-20-2024 Telephone encounter Note Left message for return call. [facility] 06-20-2024 Telephone encounter Note Order placed, prior sleep study done at [facility], please clarify that they would like orders sent there for the repeat study and send both the sleep study and titration study orders to see if a split study can be done. Thanks [facility] 06-20-2024 Telephone encounter Note Patient's mother calls back and notified of below. Mother voices understanding. Mother states that patient is willing to do another sleep study. Please place these orders. Barbara Posada RN [facility] 06-17-2024 Telephone encounter Note Left message for return call. [facility] 06-17-2024 Telephone encounter Note Can we please check with patient and his mom to see if willing to do another study. Please let them know the note from [employer]. Thanks. [facility] 06-17-2024 Telephone encounter Note Fax received from [employer] stating the order for the BIPAP has been declined. Mentioning that patient needs a new in lab sleep study and new initial consult notes due to being noncompliant with BIPAP earlier this year. [facility] 06-14-2024 Note HNO ID: [id number] Author: LIUDMILA BREAUX APRN.RADHA Service: ? Author Type: Nurse Practitioner Type: Progress Notes Filed: 06/22/2024 12:13 Note Text: DELON Brooke is a 34 year old male [...] issues so machine was taken back by [email or web address] company. Ready to use this more. Last [...] Diabetes Mellitus Type 2, Controlled, Without Complications ([facility]) - 09/28/2023 Gerd (Gastroesophageal Reflux Disease) - 02/05/2022 Prediabetes - 02/05/2022 Family History of Colon Cancer - 02/05/2022 Colon Cancer Screening - 02/05/2022 Primary Hypertension - 05/15/2020 S/P Lumbar Laminectomy - 09/24/2019 Comment: Dr. Weinstein Spinal Stenosis of Lumbar Region With Neurogenic Claudication - 05/10/2019 Dwight (Obstructive Sleep Apnea) - 06/22/2018 Comment: [employer] 08/31/2023 Aircurve 10 auto (SN [id number]) Mask jannette II Plantar Fascial Fibromatosis [...] 2 seconds. Neuro (more content not included)... [facility] 06-14-2024 History of Presen t illness [...] issues so machine was taken back by [employer]. Ready to use this more. Last sleep [...] Diabetes Mellitus Type 2, Controlled, Without Complications ([facility]) - 09/28/2023 Gerd (Gastroesophageal Reflux Disease) - 02/05/2022 Prediabetes - 02/05/2022 Family History of Colon Cancer - 02/05/2022 Colon Cancer Screening - 02/05/2022 Primary Hypertension - 05/15/2020 S/P Lumbar Laminectomy - 09/24/2019 Comment: Dr. Weinstein Spinal Stenosis of Lumbar Region With Neurogenic Claudication - 05/10/2019 Dwight (Obstructive Sleep Apnea) - 06/22/2018 Comment: [email or web address] [facility] [employer] 08/31/2023 Aircurve 10 auto ( [id number]) Mask jannette II Plantar Fascial Fibromatosis - 06/30/2017 Abnormal Gait - 06/30/2017 Hereditary and Idiopathic Peripheral Neuropathy - 10/27/2016 Class 3 Severe Obesity With Body Mass Index (Bmi) of 45.0 to 49.9 in Adult ([facility]) - 12/15/2014 Encopresis - 12/15/2014 Enuresis - [...] orders, office note and sleep study to [facility]. - PAP THERAPY ORDER - CPAP/BIPAP/OTHER 2. [...] to improve, for Keep next scheduled appointment.. INGA Romero documented in this encounter [facility] 05-09-2024 History of Presen t illness Narrative Images from the original note were not included. This note was created using [employer]. Subjective Niko Brooke is a 33 year [...] Vargas documented in this encounter [facility] 04-05-2024 Instructions Hector Currie MD - [...] test. documented in this encounter [facility] 04-05-2024 History of Presen t illness Narrative This note was created using [employer]. Subjective Niko Brooke is a 33 year [...] Abs Lymph 1.00 - 4.00 k/uL 2.55 [place]% % 5.7 Abs [place] <0.87 k/uL 0.48 Eosin% % 1.5 Abs [...] complication, without long-term current use of insulin ([facility]) E11.9 dulaglutide (TRULICITY) 3 mg/0.5 mL pen injector dulaglutide (TRULICITY) 1.5 mg/0.5 mL pen injector HEMOGLOBIN A1C COMPREHENSIVE METABOLIC PANEL LIPID PANEL BASIC COMPLETE BLOOD COUNT ALBUMIN/CREATININE RATIO, URINE 2. Class 3 severe obesity without serious comorbidity with body mass index (BMI) of 45.0 to 49.9 in adult, unspecified obesity type ([facility]) E66.01 dulaglutide (TRULICITY) 3 mg/0.5 mL pen [...] complication, without long-term current use of insulin ([facility]): - Patient's recent labs show fasting blood [...] MD documented in this encounter [facility] 12-01-2023 History of Presen t illness Narrative This note was created using [employer]. Subjective Niko Brooke is a 33 year [...] Abs Lymph 1.00 - 4.00 k/uL 2.55 [place]% % 5.7 Abs [place] <0.87 k/uL 0.48 Eosin% % 1.5 Abs [...] MD documented in this encounter [facility] 11-06-2023 History of Presen t illness [...] history is provided by the patient. No social services director was used. Flu Like Symptoms This is [...] Bones and soft tissues: Unremarkable. Anneliese Francisco APRN.SECURITIES SUPERVISOR documented in this encounter [facility] 10-12-2023 Miscellaneous Notes Patient's mother Dea called in regarding the trulicity. She says the patient is diabetic. Patient still has not received trulicity documented in this encounter [facility] 09-28-2023 History of Presen t illness Narrative BMI Obesity Medicine FollowUp Note Distance Health Visit September 28, 2023 I have communicated my name and active licensure. The patient's identity and physical location were verified at the time of this visit. Either the patient or their legal sales and merchandising representative has been informed of the risks and benefits of -- and alternatives to -- treatment through a remote evaluation and consents to proceed with the evaluation remotely. Patient Summary: Niko Brooke is 33 year old Male who presents virtually for follow-up evaluation of his obesity and related complications to the [facility] Bariatric [facility] Metabolic [place]. In our previous visits we have outlined [...] which included preparing to see the patient, [id number]-[id number] patient care, completing clinical documentation, obtaining and/or reviewing separately obtained history, performing a medically appropriate examination, counseling and educating the patient/family/caregiver, and ordering medications, tests, or procedures. Carmelita Thomas APRN.SECURITIES SUPERVISOR Initial Program Weight 379 lbs Weight Graph [...] No, and Pulmonary: DWIGHT History reviewed in [facility] Allergies: Seasonal Allergies Other: See Comments [...] visibly SOB Neuro: speech fluent Impression: Niko Boroke is a 33 year old year old [...] which included preparing to see the patient, cjie-ik-oymg patient care, completing clinical documentation, obtaining and/or reviewing separately obtained history, performing a medically appropriate examination, counseling and educating the patient/family/caregiver, and ordering medications, tests, or procedures. Some documentation from previous visit of 12/26/2022 was copied and pasted, documentation has been reviewed and edited as necessary for today's visit. Carmelita Thomas APRN.CNP documented in this encounter [facility] 09-25-2023 Miscellaneous Notes Patient's mother notified, [...] Please advise mother. Antoinette Sommer LPN noted Matt reviewed [employer] PAP program. Program website notes that company [...] NIKO BROOKE (Alvarez: BDGQTQNP) PA Rx #: [id number] Outcome Denied today Your request has been denied Drug Trulicity 3MG/0.5ML pen-injectors [facility] cloud logo Form [employer] Medicare Electronic Prior Authorization Request Form (2017 CAPDP) Original Claim Info [id number]: Patient appeal noticerequired by [facility].[id number]: Will wait for fax to see what is formulary [employer] [place] completed for trulicity. NIKO BROOKE (Alvarez: BDGQTQNP) - [id number] Trulicity 3MG/0.5ML pen-injectors Status: PA Request Created: September 16, 2023 [id number] Sent: September 16, 2023 documented in this encounter [facility] 07-15-2023 Miscellaneous Notes OV note, new RX for PAP, insurance information and face sheet [place] [facility] Mindy Palencia LPN Printed APAP Rx and completed note with explanation Spoke with [facility] staff concerning what patient need to resume PAP machine. Last OV note needing to have the reason why the patient was n on-compliant with last PAP, in OV notes. New RX with PAP settings. No new studies needing to be performed. Mindy Palencia LPN documented in this encounter [facility] 05-23-2023 History of Presen t illness [...] MD documented in this encounter [facility] 02-13-2023 History of Presen t illness Narrative Images from the original note were not included. Subjective HPI HPI iNko Brooke is a 32 year old male [...] pain, x2 wks, recent express care visit, [place], no xray performed pain rated 5, denied [...] planus. Dictated by : MD Celso FRANKLIN APRN.SECURITIES SUPERVISOR documented in this encounter [facility] 02-13-2023 History of Presen t illness [...] PM documented in this encounter [facility] 12-30-2022 Miscellaneous Notes Lanie/mother notified, forms are in Med Recs for her to pickup. Madina Webber LPN TC to patient's mother. Line rings busy. Will try again at a later time. Please let her know that forms along with last office note was taken to medical records for draft roller picker. Form was completed by mother. I did [...] LPN documented in this encounter [facility] 12-26-2022 History of Presen t illness [...] visit. Either the patient or their legal sales and merchandising representative has been informed of the risks and benefits of -- and alternatives to -- treatment through a remote evaluation and consents to proceed with the evaluation remotely. - Done, at home. Patient Summary: Niko Brooke is 32 year old Male who presents virtually for follow-up evaluation of his obesity and related complications to the [facility] Bariatric and Metabolic [place]. In our previous visits we have outlined [...] intervention is the best and most appropriate moth exterminator therapeutic option. -- We discussed several strategies to track food intake and increase mindfulness around eating. He was counseled on Food records and snack replacements and adding more fruits/vegetables. Also recommended establishing with bariatric electrical maintenance man. -- Encouraged the patient to improve his physical activity. Although cardiovascular exercise is most beneficial for weight loss initially, we discussed healthy muscle from a combination of resistance training and cardiovascular exercise is the best moth exterminator plan. An overall goal of 200 minutes per week of exercise has been effective in weight loss and maintenance. -- Recommended trial of dulaglutide for appetite suppression. Discussed common s/e and medication administration with mom and pt. Provided drug information via [employer] message and recommended watching the "How to [...] fruit. To schedule with bariatric nutrition call [phone]. Also schedule 2 month follow up with me. Activity: Create a habit of physical activity 3 days per week. Consider chair exercise on YouTube. Sleep: Continue using using CPAP. I spent a total of 47 minutes on the date of the service which included preparing to see the patient, ppyr-ky-pesh patient care, completing clinical documentation, obtaining and/or reviewing separately obtained history, performing a medically appropriate examination, counseling and educating the patient/family/caregiver, and ordering medications, tests, or procedures. Carmelita Thomas APRN.SECURITIES SUPERVISOR Weight Graph; (please see graph scanned in chart or [facility] synopsis below) Interval History: He specifies the [...] which included preparing to see the patient, zyta-rq-nrvc patient care, completing clinical documentation, obtaining and/or reviewing separately obtained history, performing a medically appropriate examination, counseling and educating the patient/family/caregiver, and ordering medications, tests, or procedures. Carmelita Thomas APRN.RADHA documented in this encounter [facility] 12-17-2022 History of Presen t illness Narrative Images from the original note were not included. This note was created using NoteWriter. Subjective Niko Brooke is a 32 year [...] injection (DEFINITY) INTRAVENOUS DIRECTED PRN Ligia Older, TIMBER MILL WORKER.SECURITIES SUPERVISOR sodium chloride 0.9 % (flush) 10 mL (BD POSIFLUSH) 10 mL INTRAVENOUS DIRECTED PRN Ligia Older, TIMBER MILL WORKER.SECURITIES SUPERVISOR PAST SURGICAL HISTORY Procedure Laterality Date CIRCUMCISION [...] PA-C documented in this encounter [facility] 12-04-2022 Miscellaneous Notes Order faxed to [facility] Addended by: SARAH HERRMANN on: 12/04/2022 03:28 PM Modules accepted: Orders OK., fax order to [facility] Mom (Lanie) calls to report C-pap machine is broken and requesting new order be sent to [facility]. Pended previous order. Please fax to [phone]. Lilia Barber RN documented in this encounter [facility] 11-18-2022 Miscellaneous Notes Patient given results [...] improving. documented in this encounter [facility] 11-17-2022 History of Presen t illness Narrative Patient presents with: Head Congestion: cough x 4 days HPI: Feeling sick for 5 days; he is starting to feel better. 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 His mother is [...] MD documented in this encounter [facility] 11-04-2022 History of Presen t illness Narrative This note was created using [employer]. Subjective Niko Brooke is a 32 year [...] MD documented in this encounter [facility] 10-03-2022 Instructions Carmelita Thomas APRN.SECURITIES SUPERVISOR - 10/03/2022 1:21 PM EST Mutually Agreed Upon Goals Eating Plan: - Lose it BETHANY - Log intake 1-2 days per week. - Consider protein supplement for snack. - Applesauce is good. - Consider tuna or chicken salad wrap for lunch - Consider smoothies with added vegetables and fruit. To schedule with bariatric nutrition call [phone]. Also schedule 2 month follow up with me. Activity: Create a habit of physical activity 3 days per week. Consider chair exercise on [employer]Spir[employer]. Sleep: Continue using using CPAP. - Begin [...] 16-55 Other Frozen meals: Kashi, Sweet Earth, Power Shovel Operator Lj's Reduced Guilt, EVOL, Sumanth Fry's Delights, Dr. Can's Protein Drinks Calories Protein (grams) Sugars (grams) EAS Advant Edge Carb Control 110 17 1 Isopure Clear Zero Carb 160 40 0 Muscle Milk light 100-160 15-20 0-1 1000memories Core Power 170 26 5 Orgain Protein Shake* 150 26 2 Premier Protein 160 30 1 Evolve (Vegan)* 160 20 5 Other Protein Shakes: Pure Protein, Ensure High Protein; *Offers plant based, dairy free option Protein Powders Calories (per scoop) Protein (g) Sugars (g) Isopure Zero Carb & Unflavored 105 25 0 Financial Reserve Clerk Whey Protein 100 18 3 Optimum Nutrition [...] vegan documented in this encounter [facility] 10-03-2022 History of Presen t illness [...] obesity who presents to the [facility]ariat[facility] Met[facility] [place] for an initial evaluation of his obesity [...] yogurt and sugar free gatorade Dinner: hamburgers, chinese fries. - He will not eat vegetables because he does not like them Snacks: cereal with skim milk, PB&J, candy Drinks: diet soda (1 per day), sugar free gatorade, water, favored water. ETOH: none Characterization of diet:unhealthy snacking and evening snacking. 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 General appearance: NAD Mental status: awake and [...] intervention is the best and most appropriate moth exterminator therapeutic option. -- We discussed several strategies to track food intake and increase mindfulness around eating. He was counseled on Food records and snack replacements and adding more fruits/vegetables. Also recommended establishing with bariatric electrical maintenance man. -- Encouraged the patient to improve his physical activity. Although cardiovascular exercise is most beneficial for weight loss initially, we discussed healthy muscle from a combination of resistance training and cardiovascular exercise is the best chcf plan. An overall goal of 200 minutes per week of exercise has been effective in weight loss and maintenance. -- Recommended trial of dulaglutide for appetite suppression. Discussed common s/e and medication administration with mom and pt. Provided drug information via Tá[employer] message and recommended watching the "How to [...] fruit. To schedule with bariatric nutrition call [phone]. Also schedule 2 month follow up with me. Activity: Create a habit of physical activity 3 days per week. Consider chair exercise on D-Sightube. Sleep: Continue using using CPAP. I spent a total of 47 minutes on the date of the service which included preparing to see the patient, aooj-wz-kjiv patient care, completing clinical documentation, obtaining and/or reviewing separately obtained history, performing a medically appropriate examination, counseling and educating the patient/family/caregiver, and ordering medications, tests, or procedures. Carmelita Thomas APRN.SECURITIES SUPERVISOR documented in this encounter [facility] 09-26-2022 History of Presen t illness [...] Abs Lymph 1.00 - 4.00 k/uL 1.98 [place]% % 6.0 Abs [place] <0.87 k/uL 0.46 Eosin% % 0.0 Abs [...] N/A documented in this encounter [facility] 09-17-2022 Instructions Liudmila Breaux APRN.CNP - 09/17/2022 3:55 PM EST lifestyle modifications including losing weight, limiting caffeine, no meals three hours before sleep, and head of bed elevation. Try to limit things like red sauce and foods that are spicy. documented in this encounter [facility] 09-17-2022 History of Presen t illness Narrative Images from the original note were not included. SUBJECTIVE Niko Brooke is a 32 year old male here today for an ER follow up. Chief Complaint Patient presents with: ER F/U: Chest pain- [facility] 09/16/2022 HPI Niko Brooke is a 32 year old male established patient of Dr. Currie who presents today for ER follow up. He was seen in the ER at [facility] on 09/16/2022. Presents to ER for concerns [...] APRN-RADHA documented in this encounter [facility] 07-25-2022 Miscellaneous Notes Mother aware of [...] Abs Lymph 1.00 - 4.00 k/uL 1.98 [place]% % 6.0 Abs [place] <0.87 k/uL 0.46 Eosin% % 0.0 Abs [...] 1.750 documented in this encounter [facility] 07-22-2022 History of Presen t illness [...] Latest Ref Rng & Units 09/09/2021 12/07/2021 04/23/202204/2504/25/2022 WBC 3.70 - 11.00 k/uL 7.62 RBC [...] Abs Lymph 1.00 - 4.00 k/uL 1.98 [place]% % 6.0 Abs [place] <0.87 k/uL 0.46 Eosin% % 0.0 Abs [...] 318.0, ICD10: F[address] Dasilva [facility]. Currently stable 6. DWIGHT (obstructive sleep apnea) [...] bariatric provider, medication if appropriate such as [facility]. - [facility] 9. IFG (impaired [...] follow up with labs MD Sarah Marks APRN.DIMENSION STONE QUARRY SUPERVISOR Medical Decision Making: Problems: Moderate: 2+ stable chronic illnesses and 1+ chronic illnesses with change Data: Unique test(s) ordered: 2 Risk: Moderate: Drug management Medical Decision Making Level: 4 - Moderate documented in this encounter [facility] 06-27-2022 Miscellaneous Notes Patient mother Lanie [...] labs done? Please review and advise, Barbara Posada RN documented in this encounter [facility] 05-13-2022 History of Presen t illness Narrative This note was created using [employer]. Subjective Niko Brooke is a 31 year [...] Abs Lymph 1.00 - 4.00 k/uL 1.98 [place]% % 6.0 Abs [place] <0.87 k/uL 0.46 [place]% % 0.0 Abs [...] in adult, unspecified whether serious comorbidity present ([facility]) E66.01 Z68.42 4. Mild intermittent asthma without [...] MD documented in this encounter [facility] 05-01-2022 History of Presen t illness Narrative Subjective HPI Francsi presents today with complaint of pain in [...] FOOT GENERAL 3V AP/LAT/OBL RIGHT Alyssa Hernandez APRN.RADHA documented in this encounter [facility] 04-29-2022 Miscellaneous Notes Patient's mother Lanie notified, verbalized understanding. Transferred to schedulers. Schuyler Ramon Ma Please let the patient know BNP was normal. He will need to have an echocardiogram, which is an ultrasound of the heart, to evaluate shortness of breath further. Ligia Coughlin APRN.SECURITIES SUPERVISOR documented in this encounter [facility] 04-23-2022 Miscellaneous Notes Patient's mother Lanie notified, verbalized understanding. Schuyler Ramon Ma Please let the patient know the chest x-ray was normal. D-dimer was negative, no blood clots. The CBC and chemistry profile was within acceptable limits. I don't the results of BNP yet, will call as soon as I get these Ligia Coughlin APRN.CNP documented in this encounter [facility] 04-23-2022 History of Presen t illness [...] AM documented in this encounter [facility] 03-11-2022 Miscellaneous Notes Please call patient inform him biopsy unremarkable consistent with acid reflux - continue omeprazole 20mg daily on empty stomach. Colonoscopy one polyp was found which is tubular adenoma - precancerous recommend 5 year colonoscopy for surveillance purposes Thanks Roseanna Ross APRN.CNP documented in this encounter [facility] 03-05-2022 Note C. There is reactive epithelial change with no evidence of dysplasia. This case has been reviewed at the departmental consensus conference on 03/11/2022. The diagnosis represents the consensus of the group. [facility] Comment on above: Order Comment: Speci men Type: TISSUE SPECIMEN Ordering Facility: [facility] Address: [address] [place] [address] Performed By: #### S #### [facility] CLIA [id number] [address] [place] [address] OF [facility] 03-05-2022 History and physical note CHIEF COMPLAINT: Patient presents with: GERD Outpatient Colonoscopy: due to family history of colon cancer This consult was requested by Sarah Herrmann APRN.CNS for an opinion regarding colon cancer screening. My final recommendations will be communicated to the requesting health care provider by way of the shared medical record for internal providers or letter via the [employer] for external providers. Niko Brooke is [...] with more than 50% of the total idis-ut-zunm time of the visit in counseling / coordination of care. I have confirmed and edited as necessary, the PFSH and ROS obtained by others. Roseanna Ross APRN.SECURITIES SUPERVISOR UPDATED HISTORY AND PHYSICAL EXAMINATION SERVICE DATE: [...] be found in the attached. SIGNATURE: Jaret King III, MD PATIENT NAME: Niko Brooke DATE: March 05, 2022 TIME: 8:30 AM documented in this encounter [facility] 02-05-2022 History and physical note HISTORY AND PHYSICAL EXAMINATION SERVICE DATE: 02/05/2022 SERVICE TIME: 8:34 AM PRIMARY CARE PHYSICIAN: Hector Currie MD REASON FOR VISIT: Niko Brooke is a 31 year old male who is scheduled for EGD/colonoscopy at the request of Dr. Jaret King for consultation. My final recommendation will be [...] neuropathy (on rx). Negative for: cerebral palsy, DIMENSION STONE QUARRY SUPERVISOR tumor, dementia, headaches, hemiplegia, Parkinson's disease, seizures, TIA and strokes. Respiratory: Positive for: asthma (rx as needed) and obstructive sleep apnea (has not recieved CPAP). Negative for: COPD, pneumonia within 6 weeks, tobacco use and URI < 2 weeks. Cardiovascular: Positive for: hypertension (on rx) Negative for: anticoagulation therapy, arrhythmia, atrial fibrillation, CAD, chest pain, CHF, congenital heart defect, DVT/PE, hyperlipidemia, recent CO, murmur/valvular heart disease, open heart surgery and [...] or any previous visit (from the past 95832 hour(s)). Assessment Asthma Assessment: rx as needed [...] Obesity, Class III, BMI 40-49.9 (morbid obesity) ([facility]) Assessment: Body mass index is 49.3 kg/m [...] years old or younger STOP-Bang Score: 6 [id number] Score: Age: <65 Sex: male CHF history: No Hypertension history: Yes Stroke/TIA/thromboembolism history: No Vascular disease history: No Diabetes history: No [id number] Score: 1 ARISCAT Score: Age: <=50 Preoperative [...] and consent discussed: yes. Patient / Responsible Green Party agrees to proceed: yes Patient / Surrogate [...] #: documented in this encounter [facility] 02-05-2022 Instructions Alley Dee APRN.CNP - 02/05/2022 8:33 AM EDT PATIENT PREOPERATIVE INSTRUCTIONS Jaret King MD has scheduled you for your procedure at this surgery center: [facility]: [phone] -- [address] [facility] [address]. Please read below carefully for your personalized [...] Procedures: - YOU MUST HAVE A RESPONSIBLE HAT BRUSHER MACHINE TAKE YOU HOME. A ELECTRIC POWER SUPERINTENDENT OR MANUFACTURING QUALITY MANAGER CANNOT BE MADE A RESPONSIBLE HAT BRUSHER MACHINE. - We recommend that a responsible person [...] Advance Directive, please fax a copy to [phone] or email to for it to be [...] into your chart that day. Alley Dee APRN.CNP documented in this encounter [facility] 12-13-2021 History of Presen t illness Narrative [facility] DME ISSUE NOTE Patient identified by name and date: Yes Subjective: Niko Brooke is a 31 year old male seen today for fitting and draft roller picker of custom foot orthotics. Equipment Owned: ineffective [...] hour of wear time per day until time study technician wear is achieved. Pt was educated on [...] Custom biomechanical foot orthotics with serial number: #[id number] were issued to patient and proof of receipt form signed by pt and therapist. All specifications for custom foot orthotics can be found in orthotic evaluation visit note. Planned Interventions: Follow up as needed for brace fitting/issues. Billing:[facility]: Equipment: [id number] pair of custom foot orthotics No charge for time. Total time: 15 minutes Pavan Hampton PT documented in this encounter [facility] 12-03-2021 Instructions Roseanna Ross APRN.CNP - 12/03/2021 9:32 AM EDT Your procedure will be with at [place] Follow the provided instructions for colonoscopy. You [...] pillow. documented in this encounter [facility] 12-03-2021 History of Presen t illness [...] for internal providers or letter via the [employer] for external providers. Niko Brooke [...] with more than 50% of the total smoh-zx-nooq time of the visit in counseling / coordination of care. I have confirmed and edited as necessary, the PFSH and ROS obtained by others. Roseanna Ross APRN.CNP DATE: 12/03/21 TIME: 8:20 AM documented in this encounter [facility] 09-27-2010 History of Past i llness Narrative Problem Noted Date Resolved Date Tendonitis 09/27/2010 07/14/2012 Sprain of foot, unspecified site 09/27/2010 07/14/2012 documented as of this encounter (statuses as of 12/03/2021) [facility] History of Past illness Narrative* Problem Noted Date Resolved Date Tendonitis 09/27/2010 07/14/2012 Sprain of foot, unspecified site 09/27/2010 07/14/2012 documented as of this encounter (statuses as of 12/13/2021) [address]04-[address] History of Past illness Narrative* Problem Noted Date Resolved Date Tendonitis 09/27/2010 07/14/2012 Sprain of foot, unspecified site 09/27/2010 07/14/2012 documented as of this encounter (statuses as of 02/05/2022) [facility] History of Past illness Narrative* Problem Noted Date Resolved Date Tendonitis 09/27/2010 07/14/2012 Sprain of foot, unspecified site 09/27/2010 07/14/2012 documented as of this encounter (statuses as of 02/11/2022) [address] History of Past illness Narrative* Problem Noted Date Resolved Date Tendonitis 09/27/2010 07/14/2012 Sprain of foot, unspecified site 09/27/2010 07/14/2012 documented as of this encounter (statuses as of 03/06/2022) [address] History of Past illness Narrative* Problem Noted Date Resolved Date Tendonitis 09/27/2010 07/14/2012 Sprain of foot, unspecified site 09/27/2010 07/14/2012 documented as of this encounter (statuses as of 03/13/2022) [facility] History of Past illness Narrative* Problem Noted Date Resolved Date Tendonitis 09/27/2010 07/14/2012 Sprain of foot, unspecified site 09/27/2010 07/14/2012 documented as of this encounter (statuses as of 04/23/2022) [facility] History of Past illness Narrative* Problem Noted Date Resolved Date Tendonitis 09/27/2010 07/14/2012 Sprain of foot, unspecified site 09/27/2010 07/14/2012 documented as of this encounter (statuses as of 04/25/2022) [facility] History of Past illness Narrative* Problem Noted Date Resolved Date Tendonitis 09/27/2010 07/14/2012 Sprain of foot, unspecified site 09/27/2010 07/14/2012 documented as of this encounter (statuses as of 04/29/2022) [place] [address]-04-2011 History of Past illness Narrative* Problem Noted Date Resolved Date Tendonitis 09/27/2010 07/14/2012 Sprain of foot, unspecified site 09/27/2010 07/14/2012 documented as of this encounter (statuses as of 05/01/2022) [address]2011 History of Past illness Narrative* Problem Noted Date Resolved Date Tendonitis 09/27/2010 07/14/2012 Sprain of foot, unspecified site 09/27/2010 07/14/2012 documented as of this encounter (statuses as of 06/20/2022) [address] History of Past illness Narrative* Problem Noted Date Resolved Date Tendonitis 09/27/2010 07/14/2012 Sprain of foot, unspecified site 09/27/2010 07/14/2012 documented as of this encounter (statuses as of 06/27/2022) [address]2011 History of Past illness Narrative* Problem Noted Date Resolved Date Tendonitis 09/27/2010 07/14/2012 Sprain of foot, unspecified site 09/27/2010 07/14/2012 documented as of this encounter (statuses as of 07/22/2022) [address]2011 History of Past illness Narrative* Problem Noted Date Resolved Date Tendonitis 09/27/2010 07/14/2012 Sprain of foot, unspecified site 09/27/2010 07/14/2012 documented as of this encounter (statuses as of 07/25/2022) [address]2011 History of Past illness Narrative* Problem Noted Date Resolved Date Tendonitis 09/27/2010 07/14/2012 Sprain of foot, unspecified site 09/27/2010 07/14/2012 documented as of this encounter (statuses as of 09/17/2022) [address]2011 History of Past illness Narrative* Problem Noted Date Resolved Date Tendonitis 09/27/2010 07/14/2012 Sprain of foot, unspecified site 09/27/2010 07/14/2012 documented as of this encounter (statuses as of 09/26/2022) [address] History of Past illness Narrative* Problem Noted Date Resolved Date Tendonitis 09/27/2010 07/14/2012 Sprain of foot, unspecified site 09/27/2010 07/14/2012 documented as of this encounter (statuses as of 10/03/2022) [facility] History of Past illness Narrative* Problem Noted Date Resolved Date Tendonitis 09/27/2010 07/14/2012 Sprain of foot, unspecified site 09/27/2010 07/14/2012 documented as of this encounter (statuses as of 11/18/2022) [facility] History of Past illness Narrative* Problem Noted Date Resolved Date Tendonitis 09/27/2010 07/14/2012 Sprain of foot, unspecified site 09/27/2010 07/14/2012 documented as of this encounter (statuses as of 11/18/2022) [facility] History of Past illness Narrative* Problem Noted Date Resolved Date Tendonitis 09/27/2010 07/14/2012 Sprain of foot, unspecified site 09/27/2010 07/14/2012 documented as of this encounter (statuses as of 12/01/2022) [facility] History of Past illness Narrative* Problem Noted Date Resolved Date Tendonitis 09/27/2010 07/14/2012 Sprain of foot, unspecified site 09/27/2010 07/14/2012 documented as of this encounter (statuses as of 12/05/2022) [facility] History of Past illness Narrative* Problem Noted Date Resolved Date Tendonitis 09/27/2010 07/14/2012 Sprain of foot, unspecified site 09/27/2010 07/14/2012 documented as of this encounter (statuses as of 12/18/2022) [facility] History of Past illness Narrative* Problem Noted Date Resolved Date Tendonitis 09/27/2010 07/14/2012 Sprain of foot, unspecified site 09/27/2010 07/14/2012 documented as of this encounter (statuses as of 12/26/2022) [facility] History of Past illness Narrative* Problem Noted Date Resolved Date Tendonitis 09/27/2010 07/14/2012 Sprain of foot, unspecified site 09/27/2010 07/14/2012 documented as of this encounter (statuses as of 12/31/2022) [facility] History of Past illness Narrative* Problem Noted Date Resolved Date Tendonitis 09/27/2010 07/14/2012 Sprain of foot, unspecified site 09/27/2010 07/14/2012 documented as of this encounter (statuses as of 02/14/2023) [address] History of Past illness Narrative* Problem Noted Date Diagnosed Date Resolved Date Tendonitis 09/27/2010 07/14/2012 Sprain of foot, unspecified site 09/27/2010 07/14/2012 documented as of this encounter (statuses as of 05/23/2023) [facility] History of Past illness Narrative* Problem Noted Date Diagnosed Date Resolved Date Tendonitis 09/27/2010 07/14/2012 Sprain of foot, unspecified site 09/27/2010 07/14/2012 documented as of this encounter (statuses as of 07/15/2023) [address] History of Past illness Narrative* Problem Noted Date Diagnosed Date Resolved Date Tendonitis 09/27/2010 07/14/2012 Sprain of foot, unspecified site 09/27/2010 07/14/2012 documented as of this encounter (statuses as of 09/25/2023) [facility] History of Past illness Narrative* Problem Noted Date Diagnosed Date Resolved Date Tendonitis 09/27/2010 07/14/2012 Sprain of foot, unspecified site 09/27/2010 07/14/2012 documented as of this encounter (statuses as of 09/28/2023) [facility] History of Past illness Narrative* Problem Noted Date Diagnosed Date Resolved Date Tendonitis 09/27/2010 07/14/2012 Sprain of foot, unspecified site 09/27/2010 07/14/2012 documented as of this encounter (statuses as of 10/12/2023) [facility] History of Past illness Narrative* Problem Noted Date Diagnosed Date Resolved Date Tendonitis 09/27/2010 07/14/2012 Sprain of foot, unspecified site 09/27/2010 07/14/2012 documented as of this encounter (statuses as of 10/23/2023) [facility] History of Past illness Narrative* Problem Noted Date Diagnosed Date Resolved Date Tendonitis 09/27/2010 07/14/2012 Sprain of foot, unspecified site 09/27/2010 07/14/2012 documented as of this encounter (statuses as of 11/06/2023) [facility] Mccloud [facility] September 16, 2022 11:19am Note Date/Time September 16, 2022 1 0:07am [facility] Medical Records Department [address] [place] [address] Emergency Department Summary 09/16/22 MR#: [id number] Acct: [id number] Name: NIKO BROOKE Rep #:[id number] : [...] your Primary Care Provider. Call [facility] ([phone]) or report to the closest Emergency Room. Call 911 if necessary. 09/16/22 1119 <Electronically signed by Cuco Mccloud MD> Cosigner Signature (if applicable): CC: Dr. Hector Currie MD ~ Signed [facility] Work Phone: Evaluation note* Diagnosis Family history of colon cancer in father- Primary Family history of colon cancer Family history of malignant neoplasm of gastrointestinal tract Colon cancer screening Special screening for malignant neoplasms, colon Dysphagia, unspecified type [facility] Diagnosis Congenital pes planus, unspecified laterality- Primary [facility]* Diagnosis Pre-operative examination- Primary Preoperative examination, [...] (HCC) Morbid obesity [facility] Diagnosis Family history of colon cancer Family history of malignant neoplasm of gastrointestinal tract Colon cancer screening Special screening for malignant neoplasms, colon Family history of colon cancer in father Dysphagia, unspecified type [facility]* Diagnosis Bilateral lower extremity edema- Primary Edema SOB (shortness of breath) on exertion Shortness of breath [facility]* Diagnosis SOB (shortness of breath) on exertion- Primary Shortness of breath documented [facility] encounter [facility] noteNo assessment information availableWPro[facility] Work Phone: Evaluation note* Diagnosis Foot pain, right- Primary Pain in limb documented in this encounter [facility] note* Diagnosis BAJWA (dyspnea on exertion)- Primary [...] depression Dysthymic disorder [facility]* Diagnosis Essential hypertension- Primary Unspecified essential hypertension Elevated glucose Other abnormal glucose IFG (impaired fasting glucose) Impaired fasting glucose Elevated LDL cholesterol level Pure hypercholesterolemia Encounter for long-term current use of medication documented in this encounter [facility] note* Diagnosis Essential hypertension- Primary Unspecified essential [...] hypertension [facility] Diagnosis Gastroesophageal reflux disease, unspecified whether esophagitis present- Primary Atypical chest pain Other chest pain Class 3 severe obesity due to excess calories with body mass index (BMI) of 45.0 to 49.9 in adult, unspecified whether serious comorbidity present (HCC) [facility] Diagnosis Excessive cerumen in ear canal, right- Primary Impacted cerumen of left ear Impacted cerumen [facility]* Diagnosis Class 3 severe obesity without serious comorbidity with body mass index (BMI) of 45.0 to 49.9 in adult, unspecified obesity type (HCC)- Primary Prediabetes Other abnormal glucose Primary hypertension Unspecified essential hypertension DWIGHT (obstructive sleep apnea) Obstructive sleep apnea (adult) (pediatric) Gastroesophageal reflux disease, unspecified whether esophagitis present [facility]* Diagnosis URI, acute- Primary Acute upper respiratory infections of unspecified site Exposure to confirmed case of COVID-19 [facility] Diagnosis Primary hypertension- Primary Unspecified essential [...] glucose [facility]* Diagnosis Puncture wound of left foot with foreign body, initial encounter- Primary [facility]* Diagnosis Class 3 severe obesity without serious comorbidity with body mass index (BMI) of 45.0 to 49.9 in adult, unspecified obesity type (HCC)- Primary Prediabetes Other abnormal glucose [facility]* Diagnosis Acute left ankle pain- Primary Foot pain, left Pain in limb [facility]* Diagnosis Toothache- Primary Unspecified disorder of the teeth and supporting structures [facility]* Diagnosis Financial difficulty- Primary Inadequate material resources documented in this encounter [facility] note* Diagnosis Class 3 severe obesity without serious comorbidity with body mass index (BMI) of 45.0 to 49.9 in adult, unspecified obesity type (HCC)- Primary Controlled type 2 diabetes mellitus without complication, without long-term current use of insulin (HCC) documented in this encounter [facility] note* Diagnosis URI, acute- Primary Acute upper respiratory infections of unspecified site Acute cough documented in this encounter [facility] note* Diagnosis Controlled type 2 diabetes mellitus [...] and parasitic disease documented in this encounter [facility] note* Diagnosis Controlled type 2 diabetes mellitus without complication, without long-term current use of insulin (HCC)- Primary documented in this encounter [facility] note* Diagnosis On moth exterminator drug therapy- Primary documented in this encounter [facility] note* Diagnosis Controlled type 2 diabetes mellitus [...] apnea (adult) (pediatric) documented in this encounter [facility] note* Diagnosis Pre-operative examination- Primary Preoperative examination, [...] site Acute cough [facility]* Diagnosis Pre-operative examination- Primary Preoperative examination, [...] Primary Acute pharyngitis documented in this encounter [facility] note* Diagnosis Pre-operative examination- Primary Preoperative examination, [...] complication, initial encounter documented in this encounter [facility] note* Diagnosis Pre-operative examination- Primary Preoperative examination, [...] Pain in limb [facility]* Diagnosis Pre-operative examination- Primary Preoperative examination, [...] Shortness of breath documented in this encounter [facility] note* Diagnosis Pre-operative examination- Primary Preoperative examination, [...] comorbidity present (HCC) documented in this encounter [facility] note* Diagnosis Pre-operative examination- Primary Preoperative examination, [...] apnea (adult) (pediatric) [facility]* Diagnosis Pre-operative examination- Primary Preoperative examination, [...] (pediatric) [facility] Diagnosis Pre-operative examination- Primary Preoperative examination, [...] claudication [facility] Diagnosis Pre-operative examination- Primary Preoperative examination, [...] hypertension [facility] Diagnosis Pre-operative examination- Primary Preoperative examination, [...] eruption [facility] Diagnosis Pre-operative examination- Primary Preoperative examination, [...] complication, without long-term current use of insulin ([facility])- Primary Primary hypertension Unspecified essential hypertension DWIGHT on CPAP Obstructive sleep apnea (adult) (pediatric) Gastroesophageal reflux disease, unspecified whether esophagitis present Class 3 severe obesity due to excess calories with body mass index (BMI) of 45.0 to 49.9 in adult, unspecified whether serious comorbidity present (HCC) Encounter for screening examination for other mental health and behavioral disorders [facility] Diagnosis Pre-operative examination- Primary Preoperative examination, [...] Obesity, Class III, BMI 40-49.9 (morbid obesity) ([facility]) Morbid obesity Primary hypertension Unspecified essential hypertension [...] with neurogenic claudication documented in this encounter [facility] note* Diagnosis Pre-operative examination- Primary Preoperative examination, [...] other respiratory manifestations documented in this encounter [facility] note* Diagnosis Pre-operative examination- Primary Preoperative examination, [...] obesity type (HCC) documented in this encounter [facility] note* Diagnosis Pre-operative examination- Primary Preoperative examination, [...] apnea (adult) (pediatric) documented in this encounter [facility] note* Diagnosis Pre-operative examination- Primary Preoperative examination, [...] obesity type (HCC) documented in this encounter [facility] note* Diagnosis Pre-operative examination- Primary Preoperative examination, [...] unspecified hyperlipidemia type documented in this encounter [facility] for referral (narrative)* Outpatient Procedure (Routine) - Authorized Specialty Diagnoses / Procedures Referred By Shaniquaac t Referred To Contact [facility] Diagnoses Dysphagia, unspecified type Procedures EGD DIAGNOSTIC ESOPHAGOGASTRODUODENOSC OPY TRANSORAL DIAGNOSTIC Ross, Roseanna, TIMBER MILL WORKER.SECURITIES SUPERVISOR [address] [place] [address] [facility] [address] [address] Referral ID Status Reason Start Date Expiration Date Visits Requested Visits Authorized [id number] Authorized Auto-Generat ed Referral 12/03/2021 12/03/2022 1 1 * Outpatient Procedure (Routine) - Authorized Specialty Diagnoses / Procedures Referred By Contac t Referred To Contact [facility] Diagnoses Family history of colon cancer Colon cancer screening Family history of colon cancer in father Procedures COLONOSCOPY SCREENING COLONOSCOPY FLX DX W/COLLJ SPEC WHEN PFRoseanna Escobedo APRN.SECURITIES SUPERVISOR [address] [place] [address] [facility] Disease [address] [address] Referral ID Status Reason Start Date Expiration Date Visits Requested Visits Authorized [id number] Authorized Auto-Generat ed Referral 12/03/2021 12/03/2022 1 1 [facility] for referral (narrative)* Outpatient Procedure (Routine) - Closed Specialty Diagnoses / Procedures Referred By Contac t Referred To Contact [facility] Diagnoses Dysphagia, unspecified type Procedures EGD DIAGNOSTIC ESOPHAGOGASTRODUODENOSC OPY TRANSORAL DIAGNOSTIC Roseanna Ross APRN.SECURITIES SUPERVISOR [address] [place] [address] [facility] Disease [address] [address] Referral ID Status Reason Start Date Expiration Date V isits Requested Visits Authorized [id number] Closed Auto-Generate d Referral 12/03/2021 12/03/2022 1 1 * Outpatient Procedure (Routine) - Closed Specialty Diagnoses / Procedures Referred By Contac t Referred To Contact [facility] Diagnoses Family history of colon cancer Colon cancer screening Family history of colon cancer in father Procedures COLONOSCOPY SCREENING COLONOSCOPY FLX DX W/COLLJ SPEC WHEN Roseanna Brewer APRN.SECURITIES SUPERVISOR [address] [place] [address] [facility] [place] [address] [place], [place] [id number] Referral ID Status Reason Start Date Expiration Date V isits Requested Visits Authorized [id number] Closed Auto-Generate d Referral 12/03/2021 12/03/2022 1 1 [facility] for referral (narrative)* Outpatient Procedure (Routine) - Authorized Specialty Diagnoses / Procedures Referred By Rachel mulligan Referred To Contact [facility] Diagnoses SOB (shortness of breath) on exertion Procedures ECHO ECHO TTHRC R-T 2D W/WOM-MODE COMPL SPEC&COLR D Ligia Coughlin APRN.SECURITIES SUPERVISOR [address] [place] [address] [facility] [place] [address] Referral ID Status Reason Start Date Expiration Date Visits Requested Visits Authorized [id number] Authorized Auto-Generat ed Referral 04/29/2022 04/29/2023 1 1 [facility] for referral (narrative)* Diagnostic Procedure Only (Routine) - Closed Specialty Diagnoses / Procedures Referred By Rachel mulligan Referred To Contact [facility] Diagnoses Foot pain, right Procedures XR FOOT GENERAL 3V AP/LAT/OBL RIGHT RADEX FOOT COMPLETE MINIMUM 3 VIEWS Alyssa Hernandez APRN.SECURITIES SUPERVISOR [address] [place] [address] [facility] Referral ID Status Reason Start Date Expiration Date V isits Requested Visits Authorized [id number] Closed Auto-Generate d Referral 05/01/2022 05/31/2023 1 1 [facility] for referral (narrative)* Diagnostic Procedure Only (Urgent) - Closed Specialty Diagnoses / Procedures Referred By Contac t Referred To Contact [facility] Diagnoses Acute left ankle pain Procedures XR ANKLE GENERAL 3V AP/LAT/OBL LEFT RADEX ANKLE COMPLETE MINIMUM 3 VIEWS Celso Smith APRN.SECURITIES SUPERVISOR [address] [place] [address] [facility] Referral ID Status Reason Start Date Expiration Date V isits Requested Visits Authorized [id number] Closed Auto-Generate d Referral 02/13/2023 03/14/2024 1 1 * Diagnostic Procedure Only (Urgent) - Closed Specialty Diagnoses / Procedures Referred By Contac t Referred To Contact [facility] Diagnoses Foot pain, left Procedures XR FOOT GENERAL 3V AP/LAT/OBL LEFT RADEX FOOT COMPLETE MINIMUM 3 VIEWS Celso Smith APRN.CNP [address] [place] [address] [facility] Referral ID Status Reason Start Date Expiration Date V isits Requested Visits Authorized [id number] Closed Auto-Generate d Referral 02/13/2023 03/14/2024 1 1 [facility] for referral (narrative)* Diagnostic Procedure Only (Urgent) - Closed Specialty Diagnoses / Procedures Referred By Contac t Referred To Contact XR IMAGING Diagnoses Puncture wound of left foot with foreign body, initial encounter Procedures XR FOOT GENERAL 3V AP/LAT/OBL LEFT RADEX FOOT COMPLETE MINIMUM 3 VIEWS Madelaine Mancuso PA-C [address] [place] [address] [place] [address] Referral ID Status Reason Start Date Expiration Date V isits Requested Visits Authorized [id number] Closed Auto-Generate d Referral 12/17/2022 01/16/2024 1 1 [facility] for referral (narrative)* Diagnostic Procedure Only (Routine) - Closed Specialty Diagnoses / Procedures Referred By Contac t Referred To Contact XR IMAGING Diagnoses Foot pain, right Procedures XR FOOT GENERAL 3V AP/LAT/OBL RIGHT RADEX FOOT COMPLETE MINIMUM 3 VIEWS Alyssa Hernandez TIMBER MILL WORKER.SECURITIES SUPERVISOR [address] [place] [address] [place] [address] Referral ID Status Reason Start Date Expiration Date V isits Requested Visits Authorized [id number] Closed Auto-Generate d Referral 05/01/2022 05/31/2023 1 1 [facility] for referral (narrative)No reason for referral information [facility] Work Phone: Reason for visit Narrative* Outpatient Procedure (Routine) - Closed Specialty Diagnoses / Procedures Referred By Contac t Referred To Contact [facility] Diagnoses Dysphagia, unspecified type Procedures EGD DIAGNOSTIC ESOPHAGOGASTRODUODENOSC OPY TRANSORAL DIAGNOSTIC Roseanna Ross TIMBER MILL WORKER.SECURITIES SUPERVISOR [address] [place] [address] [facility] [place] [address] [place] [id number] Referral ID Status Reason Start Date Expiration Date V isits Requested Visits Authorized [id number] Closed Auto-Generate d Referral 12/03/2021 12/03/2022 1 1 [facility] for visit Narrative* Diagnostic Procedure Only (Urgent) - Closed Specialty Diagnoses / Procedures Referred By Contac t Referred To Contact XR IMAGING Diagnoses Acute left ankle pain Procedures XR ANKLE GENERAL 3V AP/LAT/OBL LEFT RADEX ANKLE COMPLETE MINIMUM 3 VIEWS Celso Smith TIMBER MILL WORKER.SECURITIES SUPERVISOR [address] [place] [address] [place] [address] Referral ID Status Reason Start Date Expiration Date V isits Requested Visits Authorized [id number] Closed Auto-Generate d Referral 02/13/2023 03/14/2024 1 1 [facility] for visit Narrative* Diagnostic Procedure Only (Urgent) - Closed Specialty Diagnoses / Procedures Referred By Contac t Referred To Contact XR IMAGING Diagnoses Puncture wound of left foot with foreign body, initial encounter Procedures XR FOOT GENERAL 3V AP/LAT/OBL LEFT RADEX FOOT COMPLETE MINIMUM 3 VIEWS Madelaine Mancuso, PA-C [address] [place] [address] [place] [address] Referral ID Status Reason Start Date Expiration Date V isits Requested Visits Authorized [id number] Closed Auto-Generate d Referral 12/17/2022 01/16/2024 1 1 [facility] Diagnostic Procedure Only (Routine) - Closed Specialty Diagnoses / Procedures Referred By Contac t Referred To Contact XR IMAGING Diagnoses Foot pain, right Procedures XR FOOT GENERAL 3V AP/LAT/OBL RIGHT RADEX FOOT COMPLETE MINIMUM 3 VIEWS Alyssa Hernandez APRN.SECURITIES SUPERVISOR [address] [place] [address] [place] [address] Referral ID Status Reason Start Date Expiration Date V isits Requested Visits Authorized [id number] Closed Auto-Generate d Referral 05/01/2022 05/31/2023 1 1 [facility] Summary Purpose Family History No Family History Records FoundNo Family History Records FoundNo Family History Records FoundNo Family History Records FoundNo Family History Records Found Advance Directives No Advanced Directives Records FoundDocuments on File Type Date Recorded Patient Facing Machine Operator Expl 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 Advance Directive(s) 01/27/2022 10:10 AM Documents on File Type Date Recorded Patient Facing Machine Operator Expl 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 Advance Directive(s) 03/05/2022 7:15 AM Advance Directive(s) 01/27/2022 10:10 AM Documents on File Type Date Recorded Patient Facing Machine Operator Expl anation Advance Directive(s) 03/05/2022 7:15 AM Advance Directive(s) 01/27/2022 10:10 AM Advance Directive Response Recorded Date/ Time Living Will No July 11 6:38pm Power of Cessation Systems Outreach Specialist No July 11, 2021 6:38pm Advance Directive Response Recorded Date/ Time Living Will No September 16 9:03am Power of Cessation Systems Outreach Specialist No September 16, 2022 9:03am Medications Administered Section Inactive Administered Medications - up to 3 most recent administrations Medication Order MAR Action Action Date Dose Rate Site benzocaine 20% 4 Shirley (TOPEX) 4 Shirley, TOPICAL, ONCE, 1 dose, On Thu03/05/22 at [...] type (HCC) Procedures CONSULT [facility]IATRIC[facility]IC [facility] OFFICE/OUTPATIENT [facility] 60-74 MINUTES Sarah Herrmann, TIMBER MILL WORKER.DIMENSION STONE QUARRY SUPERVISOR [address] [place] [address] Referral ID Status Reason Start Date Expiration Date Visits Requested Visits Authorized [id number] Authorized PCP Requested Referral 2 07/22/2023 1 1 Specialty Diagnoses / Procedures Referred By Rachel t Referred To Contact Diagnoses Class 3 severe obesity without serious comorbidity with body mass index (BMI) of 45.0 to 49.9 in adult, unspecified obesity type (HCC) Procedures CONSULT TO BARIATRIC NUTRITION OFFICE/OUTPATIENT [facility] 60-74 MINUTES Carmelita Thomas, TIMBER MILL WORKER.SECURITIES SUPERVISOR [address] [place] [address] Referral ID Status Reason Start Date Expiration Date Visits Requested Visits Authorized [id number] Pending Review PCP Requested Referral 10/03/2022 10/03/2023 1 1 Specialty Diagnoses / Procedures Referred By Contac t Referred To Contact Podiatry Diagnoses Puncture wound of left foot with foreign body, initial encounter Procedures CONSULT TO PODIATRY OFFICE/OUTPATIENT [facility] MDM 60-74 MINUTES Madelaine Mancuso PA-C [address] [place] [address] Referral ID Status Reason Start Date Expiration Date Visits Requested Visits Authorized [id number] Authorized PCP Requested Referral 12/17/2022 12/17/2023 1 1 Specialty Diagnoses / Procedures Referred By Contac t Referred To Contact XR IMAGING Diagnoses Puncture wound of left foot with foreign body, initial encounter Procedures XR FOOT GENERAL 3V AP/LAT/OBL LEFT RADEX FOOT COMPLETE MINIMUM 3 VIEWS Madelaine Mancuso PA-C [address] [place] [address] Xr Imaging Referral ID Status Reason Start Date Expiration Date V isits Requested Visits Authorized [id number] Closed Auto-Generate d Referral 12/17/2022 01/16/2024 1 1 Specialty Diagnoses / Procedures Referred By Contac t Referred To Contact Diagnoses Controlled type 2 diabetes mellitus without complication, without long-term current use of insulin (HCC) Liudmila Breaux APRN.SECURITIES SUPERVISOR [address] [place] [address] Referral ID Status Reason Start Date Expiration Date Visits Re quested Visits Authorized [id number] Closed 1 1 Specialty Diagnoses / Procedures Referred By Contac t Referred To Contact Diagnoses Controlled type 2 diabetes mellitus without complication, without long-term current use of insulin (HCC) Class 3 severe obesity without serious comorbidity with body mass index (BMI) of 45.0 to 49.9 in adult, unspecified obesity type (HCC) Primary hypertension Hector Currie MD [address] [place] [address] Referral ID Status Reason Start Date Expiration Date Visits Re quested Visits Authorized [id number] Closed 1 1 Chief Complaint and Reason [...] content) DATE CREATED AUTHOR 11/27/2018 [facility] DATE CREATED AUTHOR AUTHOR'S ORGANIZ ATION 09/10/2021 [facility] DATE CREATED AUTHOR AUTHOR'S ORGANIZ ATION 03/14/2022 [facility] DATE CREATED AUTHOR AUTHOR'S ORGANIZ ATION [facility] DATE CREATED AUTHOR AUTHOR'S ORGANIZ ATION 05/26/2025 [facility] Source Comments (unrecognize d section and content) In the event this informatio n is protected by the Federal Confidentiality of Alcohol and Drug Abuse Patient Records regulations: The Federal rules restrict any use of the information to criminally investigate or prosecute any alcohol or drug abuse patient.[facility] the event this information is protected by the Federal Confidentiality of Alcohol and Drug Abuse Patient Records regulations: The Federal rules restrict any use of the information to criminally investigate or prosecute any alcohol or drug abuse patient.[facility] the event this information is protected by the Federal Confidentiality of Alcohol and Drug Abuse Patient Records regulations: The Federal rules restrict any use of the information to criminally investigate or prosecute any alcohol or drug abuse patient.[facility] the event this information is protected by the Federal Confidentiality of Alcohol and Drug Abuse Patient Records regulations: The Federal rules restrict any use of the information to criminally investigate or prosecute any alcohol or drug abuse patient.[facility] the event this information is protected by the Federal Confidentiality of Alcohol and Drug Abuse Patient Records regulations: The Federal rules restrict any use of the information to criminally investigate or prosecute any alcohol or drug abuse patient.[facility] the event this information is protected by the Federal Confidentiality of Alcohol and Drug Abuse Patient Records regulations: The Federal rules restrict any use of the information to criminally investigate or prosecute any alcohol or drug abuse patient.[facility] the event this information is protected by the Federal Confidentiality of Alcohol and Drug Abuse Patient Records regulations: The Federal rules restrict any use of the information to criminally investigate or prosecute any alcohol or drug abuse patient.[facility] the event this information is protected by the Federal Confidentiality of Alcohol and Drug Abuse Patient Records regulations: The Federal rules restrict any use of the information to criminally investigate or prosecute any alcohol or drug abuse patient.[facility] the event this information is protected by the Federal Confidentiality of Alcohol and Drug Abuse Patient Records regulations: The Federal rules restrict any use of the information to criminally investigate or prosecute any alcohol or drug abuse patient.[facility] the event this information is protected by the Federal Confidentiality of Alcohol and Drug Abuse Patient Records regulations: The Federal rules restrict any use of the information to criminally investigate or prosecute any alcohol or drug abuse patient.[facility] the event this information is protected by the Federal Confidentiality of Alcohol and Drug Abuse Patient Records regulations: The Federal rules restrict any use of the information to criminally investigate or prosecute any alcohol or drug abuse patient.[facility] the event this information is protected by the Federal Confidentiality of Alcohol and Drug Abuse Patient Records regulations: The Federal rules restrict any use of the information to criminally investigate or prosecute any alcohol or drug abuse patient.[facility] the event this information is protected by the Federal Confidentiality of Alcohol and Drug Abuse Patient Records regulations: The Federal rules restrict any use of the information to criminally investigate or prosecute any alcohol or drug abuse patient.[facility] the event this information is protected by the Federal Confidentiality of Alcohol and Drug Abuse Patient Records regulations: The Federal rules restrict any use of the information to criminally investigate or prosecute any alcohol or drug abuse patient.[facility] the event this information is protected by the Federal Confidentiality of Alcohol and Drug Abuse Patient Records regulations: The Federal rules restrict any use of the information to criminally investigate or prosecute any alcohol or drug abuse patient.[facility] the event this information is protected by the Federal Confidentiality of Alcohol and Drug Abuse Patient Records regulations: The Federal rules restrict any use of the information to criminally investigate or prosecute any alcohol or drug abuse patient.[facility] the event this information is protected by the Federal Confidentiality of Alcohol and Drug Abuse Patient Records regulations: The Federal rules restrict any use of the information to criminally investigate or prosecute any alcohol or drug abuse patient.[facility] the event this information is protected by the Federal Confidentiality of Alcohol and Drug Abuse Patient Records regulations: The Federal rules restrict any use of the information to criminally investigate or prosecute any alcohol or drug abuse patient.[facility] the event this information is protected by the Federal Confidentiality of Alcohol and Drug Abuse Patient Records regulations: The Federal rules restrict any use of the information to criminally investigate or prosecute any alcohol or drug abuse patient.[facility] the event this information is protected by the Federal Confidentiality of Alcohol and Drug Abuse Patient Records regulations: The Federal rules restrict any use of the information to criminally investigate or prosecute any alcohol or drug abuse patient.[facility] the event this information is protected by the Federal Confidentiality of Alcohol and Drug Abuse Patient Records regulations: The Federal rules restrict any use of the information to criminally investigate or prosecute any alcohol or drug abuse patient.[facility] the event this information is protected by the Federal Confidentiality of Alcohol and Drug Abuse Patient Records regulations: The Federal rules restrict any use of the information to criminally investigate or prosecute any alcohol or drug abuse patient.[facility] the event this information is protected by the Federal Confidentiality of Alcohol and Drug Abuse Patient Records regulations: The Federal rules restrict any use of the information to criminally investigate or prosecute any alcohol or drug abuse patient.[facility] the event this information is protected by the Federal Confidentiality of Alcohol and Drug Abuse Patient Records regulations: The Federal rules restrict any use of the information to criminally investigate or prosecute any alcohol or drug abuse patient.[facility] the event this information is protected by the Federal Confidentiality of Alcohol and Drug Abuse Patient Records regulations: The Federal rules restrict any use of the information to criminally investigate or prosecute any alcohol or drug abuse patient.[facility] the event this information is protected by the Federal Confidentiality of Alcohol and Drug Abuse Patient Records regulations: The Federal rules restrict any use of the information to criminally investigate or prosecute any alcohol or drug abuse patient.[facility] the event this information is protected by the Federal Confidentiality of Alcohol and Drug Abuse Patient Records regulations: The Federal rules restrict any use of the information to criminally investigate or prosecute any alcohol or drug abuse patient.[facility] the event this information is protected by the Federal Confidentiality of Alcohol and Drug Abuse Patient Records regulations: The Federal rules restrict any use of the information to criminally investigate or prosecute any alcohol or drug abuse patient.[facility] the event this information is protected by the Federal Confidentiality of Alcohol and Drug Abuse Patient Records regulations: The Federal rules restrict any use of the information to criminally investigate or prosecute any alcohol or drug abuse patient.[facility] the event this information is protected by the Federal Confidentiality of Alcohol and Drug Abuse Patient Records regulations: The Federal rules restrict any use of the information to criminally investigate or prosecute any alcohol or drug abuse patient.[facility] the event this information is protected by the Federal Confidentiality of Alcohol and Drug Abuse Patient Records regulations: The Federal rules restrict any use of the information to criminally investigate or prosecute any alcohol or drug abuse patient.[facility] the event this information is protected by the Federal Confidentiality of Alcohol and Drug Abuse Patient Records regulations: The Federal rules restrict any use of the information to criminally investigate or prosecute any alcohol or drug abuse patient.[facility] [facility]In the event this information is protected by the Federal Confidentiality of Alcohol and Drug Abuse Patient Records regulations: The Federal rules restrict any use of the information to criminally investigate or prosecute any alcohol or drug abuse patient.[facility] the event this information is protected by the Federal Confidentiality of Alcohol and Drug Abuse Patient Records regulations: The Federal rules restrict any use of the information to criminally investigate or prosecute any alcohol or drug abuse patient.[facility] the event this information is protected by the Federal Confidentiality of Alcohol and Drug Abuse Patient Records regulations: The Federal rules restrict any use of the information to criminally investigate or prosecute any alcohol or drug abuse patient.[facility]In the event this information is protected by the Federal Confidentiality of Alcohol and Drug Abuse Patient Records regulations: The Federal rules restrict any use of the information to criminally investigate or prosecute any alcohol or drug abuse patient.[facility]In the event this information is protected by the Federal Confidentiality of Alcohol and Drug Abuse Patient Records regulations: The Federal rules restrict any use of the information to criminally investigate or prosecute any alcohol or drug abuse patient.[facility] HospitalIn the event this information is protected by the Federal Confidentiality of Alcohol and Drug Abuse Patient Records regulations: The Federal rules restrict any use of the information to criminally investigate or prosecute any alcohol or drug abuse patient.[facility] the event this information is protected by the Federal Confidentiality of Alcohol and Drug Abuse Patient Records regulations: The Federal rules restrict any use of the information to criminally investigate or prosecute any alcohol or drug abuse patient.[facility]In the event this information is protected by the Federal Confidentiality of Alcohol and Drug Abuse Patient Records regulations: The Federal rules restrict any use of the information to criminally investigate or prosecute any alcohol or drug abuse patient.[facility] HospitalIn the event this information is protected by the Federal Confidentiality of Alcohol and Drug Abuse Patient Records regulations: The Federal rules restrict any use of the information to criminally investigate or prosecute any alcohol or drug abuse patient.[facility] the event this information is protected by the Federal Confidentiality of Alcohol and Drug Abuse Patient Records regulations: The Federal rules restrict any use of the information to criminally investigate or prosecute any alcohol or drug abuse patient.[facility] the event this information is protected by the Federal Confidentiality of Alcohol and Drug Abuse Patient Records regulations: The Federal rules restrict any use of the information to criminally investigate or prosecute any alcohol or drug abuse patient.[facility]In the event this information is protected by the Federal Confidentiality of Alcohol and Drug Abuse Patient Records regulations: The Federal rules restrict any use of the information to criminally investigate or prosecute any alcohol or drug abuse patient.[facility]In the event this information is protected by the Federal Confidentiality of Alcohol and Drug Abuse Patient Records regulations: The Federal rules restrict any use of the information to criminally investigate or prosecute any alcohol or drug abuse patient.[facility]In the event this information is protected by the Federal Confidentiality of Alcohol and Drug Abuse Patient Records regulations: The Federal rules restrict any use of the information to criminally investigate or prosecute any alcohol or drug abuse patient.[facility]In the event this information is protected by the Federal Confidentiality of Alcohol and Drug Abuse Patient Records regulations: The Federal rules restrict any use of the information to criminally investigate or prosecute any alcohol or drug abuse patient.[facility]In the event this information is protected by the Federal Confidentiality of Alcohol and Drug Abuse Patient Records regulations: The Federal rules restrict any use of the information to criminally investigate or prosecute any alcohol or drug abuse patient.[facility]In the event this information is protected by the Federal Confidentiality of Alcohol and Drug Abuse Patient Records regulations: The Federal rules restrict any use of the information to criminally investigate or prosecute any alcohol or drug abuse patient.[facility]In the event this information is protected by the Federal Confidentiality of Alcohol and Drug Abuse Patient Records regulations: The Federal rules restrict any use of the information to criminally investigate or prosecute any alcohol or drug abuse patient.[facility]In the event this information is protected by the Federal Confidentiality of Alcohol and Drug Abuse Patient Records regulations: The Federal rules restrict any use of the information to criminally investigate or prosecute any alcohol or drug abuse patient.[facility]In the event this information is protected by the Federal Confidentiality of Alcohol and Drug Abuse Patient Records regulations: The Federal rules restrict any use of the information to criminally investigate or prosecute any alcohol or drug abuse patient.[facility]In the event this information is protected by the Federal Confidentiality of Alcohol and Drug Abuse Patient Records regulations: The Federal rules restrict any use of the information to criminally investigate or prosecute any alcohol or drug abuse patient.[facility] HospitalIn the event this information is protected by the Federal Confidentiality of Alcohol and Drug Abuse Patient Records regulations: The Federal rules restrict any use of the information to criminally investigate or prosecute any alcohol or drug abuse patient.[facility]In the event this information is protected by the Federal Confidentiality of Alcohol and Drug Abuse Patient Records regulations: The Federal rules restrict any use of the information to criminally investigate or prosecute any alcohol or drug abuse patient.[facility]In the event this information is protected by the Federal Confidentiality of Alcohol and Drug Abuse Patient Records regulations: The Federal rules restrict any use of the information to criminally investigate or prosecute any alcohol or drug abuse patient.[facility]In the event this information is protected by the Federal Confidentiality of Alcohol and Drug Abuse Patient Records regulations: The Federal rules restrict any use of the information to criminally investigate or prosecute any alcohol or drug abuse patient.[facility]In the event this information is protected by the Federal Confidentiality of Alcohol and Drug Abuse Patient Records regulations: The Federal rules restrict any use of the information to criminally investigate or prosecute any alcohol or drug abuse patient.[facility]In the event this information is protected by the Federal Confidentiality of Alcohol and Drug Abuse Patient Records regulations: The Federal rules restrict any use of the information to criminally investigate or prosecute any alcohol or drug abuse patient.[facility] Reason for Visit (unrecogniz ed section and content) Reason Comments GERD Outpatient Colonoscopy due to family his tory of colon cancer Specialty Diagnoses / Procedures Referred By Rachel mulligan Referred To Contact Gastroenterology Diagnoses Family history of colon cancer Colon cancer screening Procedures CONSULT TO GASTROENTEROLOGY OFFICE/OUTPATIENT NEW HIGH MDM 60-74 MINUTES Sarah Herrmann, TIMBER MILL WORKER.DIMENSION STONE QUARRY SUPERVISOR [address] [place] [address] Referral ID Status Reason Start Date Expiration Date V isits Requested Visits Authorized [id number] Closed PCP Requested Referral 10/14/2021 10/14/2022 1 1 Reason Comments PT Discharge Specialty Diagnoses / Procedures Referred By Rachel mulligan Referred To Contact Podiatry Diagnoses Congenital pes planus, unspecified laterality Procedures CONSULT TO PODIATRY OFFICE/OUTPATIENT [facility] 60-74 MINUTES Sarah Herrmann, TIMBER MILL WORKER.DIMENSION STONE QUARRY SUPERVISOR [address] [place] [address] Referral ID Status Reason Start Date Expiration Date V isits Requested Visits Authorized [id number] Closed PCP Requested Referral 10/18/2021 10/18/2022 1 1 Reason Comments Pre-Op Exam Reason Comments Refill Request Reason Comments Results Reason Comments Results Reason Comments Pain (foot) (RT) foot pain, bump ed into table, x2 days, denied fall. Reason Comments Yearly Exam Reason Comments Lab Orders Reason Comments Follow Up Reason Comments ER F/U Chest pain- [facility] 09/16 Reason Comments New Patient Obesity Specialty Diagnoses / Procedures Referred By Rachel t Referred To Contact Diagnoses Class 3 severe obesity without serious comorbidity with body mass index (BMI) of 45.0 to 49.9 in adult, unspecified obesity type (HCC) Procedures CONSULT [facility] OFFICE/OUTPATIENT [facility] 60-74 MINUTES Sarah Herrmann, TIMBER MILL WORKER.DIMENSION STONE QUARRY SUPERVISOR [address] [place] [address] Referral ID Status Reason Start Date Expiration Date V isits Requested Visits Authorized [id number] Closed PCP Requested Referral 07/22/2022 07/22/2023 1 [...] pain, x2 wks, recent express care visit, [place], no xray performed pain rated 5, denied [...] Care Teams (unrecognized sec tion and content) Literacy Consultant Relationship Specialty Start Date End Date Hector Currie MD [address] [facility] [place] [address] PCP - General Internal Medicine 10/06/17 Literacy Consultant Relationship Specialty Start Date End Date Hector Currie MD [address] [place] [address], [place] [address] PCP - General Internal Medicine 10/06/17 Literacy Consultant Relationship Specialty Start Date End Date Hector Currie MD [address] [place] [address] [place] [address] PCP - General Internal Medicine 10/06/17 Literacy Consultant Relationship Specialty Start Date End Date Hector Currie MD [facility] [place] [address] PCP - General Internal Medicine 10/06/17 Literacy Consultant Relationship Specialty Start Date End Date Hector Currie MD [facility] [place] [address] PCP - General Internal Medicine 10/06/17 Literacy Consultant Relationship Specialty Start Date End Date Hetcor Currie MD [address] [place] [address], [place] [address] PCP - General Internal Medicine 10/06/17 Literacy Consultant Relationship Specialty Start Date End Date Hector Currie MD [address] [place] [address], [place] [address] PCP - General Internal Medicine 10/06/17 Literacy Consultant Relationship Specialty Start Date End Date Hector Currie MD [address] [facility] [place] [address] PCP - General Internal Medicine 10/06/17 Literacy Consultant Relationship Specialty Start Date End Date Hector Currie MD [address] [facility] [place] [address] PCP - General Internal Medicine 10/06/17 Literacy Consultant Relationship Specialty Start Date End Date Hector Currie MD [address] [place] [address] PCP - General Internal Medicine 10/06/17 Literacy Consultant Relationship Specialty Start Date End Date Hector Currie MD [address] [place] [address] PCP - General Internal Medicine 10/06/17 Literacy Consultant Relationship Specialty Start Date End Date Hector Currie MD [address] [place] [address] PCP - General Internal Medicine 10/06/17 Literacy Consultant Relationship Specialty Start Date End Date Hector Currie MD [address] [place] [address] PCP - General Internal Medicine 10/06/17 Team Status: Active Member Role Status Dates Dr. Hector Currie MD Family Provider Active Dr. Hector Currie MD Primary Care Provider Active Team Status: Inactive Member Role Status Dates Dr. Hector Currie MD Primary Care Provider Active Dr. Cuco Mccloud MD Emergency Provider Active Literacy Consultant Relationship Specialty Start Date End Date Hector Currie MD [address] [facility] [place] [address] PCP - General Internal Medicine 10/06/17 Literacy Consultant Relationship Specialty Start Date End Date Hector Currie MD [address] [facility] [place] [address] PCP - General Internal Medicine 10/06/17 Literacy Consultant Relationship Specialty Start Date End Date Hector Currie MD [address] [facility] [place] [address] PCP - General Internal Medicine 10/06/17 Literacy Consultant Relationship Specialty Start Date End Date Hector Currie MD [address] [place] [address], [place] [address] PCP - General Internal Medicine 10/06/17 Literacy Consultant Relationship Specialty Start Date End Date Hector Currie MD [address] [place] [address], [place] [address] PCP - General Internal Medicine 10/06/17 Literacy Consultant Relationship Specialty Start Date End Date Hector Currie MD [address] [place] [address], [place] [address] PCP - General Internal Medicine 10/06/17 Literacy Consultant Relationship Specialty Start Date End Date Hector Currie MD [address] [place] [address], [place] [address] PCP - General Internal Medicine 10/06/17 Literacy Consultant Relationship Specialty Start Date End Date Hector Currie MD [address] [place] [address], [place] [address] PCP - General Internal Medicine 10/06/17 Literacy Consultant Relationship Specialty Start Date End Date Hector Currie MD [address] [place] [address], [place] [address] PCP - General Internal Medicine 10/06/17 Literacy Consultant Relationship Specialty Start Date End Date Hector Currie MD [address] [place] [address], [place] [address] PCP - General Internal Medicine 10/06/17 Literacy Consultant Relationship Specialty Start Date End Date Hector Currie MD [address] [place] [address] PCP - General Internal Medicine 10/06/17 Team Status: Inactive Member Role Status Dates Dr. Hector Currie MD Primary Care Pr ovider, Attending Provider, Referring Provider Active Literacy Consultant Relationship Specialty Start Date End Date Hector Currie MD [address] [place] [address] PCP - General Internal Medicine 10/06/17 Literacy Consultant Relationship Specialty Start Date End Date Hector Currie MD [address] [place] [address] PCP - General Internal Medicine 10/06/17 Literacy Consultant Relationship Specialty Start Date End Date Hector Currie MD [address] [place] [address] PCP - General Internal Medicine 10/06/17 Literacy Consultant Relationship Specialty Start Date End Date Hector Currie MD [address] [place] [address] PCP - General Internal Medicine 10/06/17 Literacy Consultant Relationship Specialty Start Date End Date Hector Currie MD [address] [place] [address] PCP - General Internal Medicine 10/06/17 Literacy Consultant Relationship Specialty Start Date End Date Hector Currie MD [address] [place] [address] PCP - General Internal Medicine 10/06/17 Literacy Consultant Relationship Specialty Start Date End Date Hector Currie MD [address] [facility] [place] [address] PCP - General Internal Medicine 10/06/17 Literacy Consultant Relationship Specialty Start Date End Date Hector Currie MD [address] [facility] [place] [address] PCP - General Internal Medicine 10/06/17 Literacy Consultant Relationship Specialty Start Date End Date Hector Currie MD [address] [facility] [place] [address] PCP - General Internal Medicine 10/06/17 Literacy Consultant Relationship Specialty Start Date End Date Hector Currie MD [address] [facility] [place] [address] PCP - General Internal Medicine 10/06/17 Literacy Consultant Relationship Specialty Start Date End Date Hector Currie MD [address] [facility] [place] [address] PCP - General Internal Medicine 10/06/17 Literacy Consultant Relationship Specialty Start Date End Date Hector Currie MD [address] [facility] [place] [address] PCP - General Internal Medicine 10/06/17 Literacy Consultant Relationship Specialty Start Date End Date Hector Currie MD [address] [facility] [place] [address] PCP - General Internal Medicine 10/06/17 Literacy Consultant Relationship Specialty Start Date End Date Hector Currie MD [address] [facility] [place] [address] PCP - General Internal Medicine 10/06/17 Literacy Consultant Relationship Specialty Start Date End Date Hector Currie MD [address] [facility] [place] [address] PCP - General Internal Medicine 10/06/17 Literacy Consultant Relationship Specialty Start Date End Date Hector Currie MD [address] [facility] [place] [address] PCP - General Internal Medicine 10/06/17 Literacy Consultant Relationship Specialty Start Date End Date Hector Currie MD [address] [facility] [place] [address] PCP - General Internal Medicine 10/06/17 Literacy Consultant Relationship Specialty Start Date End Date Hector Currie MD [address] [facility] [place] [address] PCP - General Internal Medicine 10/06/17 Sarah Herrmann, TIMBER MILL WORKER.DIMENSION STONE QUARRY SUPERVISOR [address] [facility] [place] [address] Marketing Development Representative Internal Medicine 08/01/24 Liudmila Breaux, TIMBER MILL WORKER.SECURITIES SUPERVISOR [address] [place] [address] Marketing Development Representative Internal Medicine 08/01/24 Literacy Consultant Relationship Specialty Start Date End Date Hector Currie MD [address] [facility] [place] [address] PCP - General Internal Medicine 10/06/17 Sarah Herrmann, TIMBER MILL WORKER.DIMENSION STONE QUARRY SUPERVISOR [address] [facility] [place] [address] Marketing Development Representative Internal Medicine 08/01/24 Liudmila Breaux APRN.SECURITIES SUPERVISOR [address] [place] [address] Marketing Development Representative Internal Medicine 08/01/24 Literacy Consultant Relationship Specialty Start Date End Date Hector Currie MD [address] [place] [address] PCP - General Internal Medicine 10/06/17 Sarah Herrmann APRN.DIMENSION STONE QUARRY SUPERVISOR [address] [place] [address] Marketing Development Representative Internal Medicine 08/01/24 Liudmila Breaux APRN.SECURITIES SUPERVISOR [address] [place] [address] Marketing Development Representative Internal Medicine 08/01/24 Literacy Consultant Relationship Specialty Start Date End Date Hector Currie MD [address] [place] [address] PCP - General Internal Medicine 10/06/17 Sarah Herrmann APRN.DIMENSION STONE QUARRY SUPERVISOR [address] [place] [address] Marketing Development Representative Internal Medicine 08/01/24 Liudmila Breuax APRN.SECURITIES SUPERVISOR [address] [place] [address] Marketing Development Representative Internal Medicine 08/01/24 Literacy Consultant Relationship Specialty Start Date End Date Hector Currie MD [address] [place] [address] PCP - General Internal Medicine 10/06/17 Sarah Herrmann APRN.DIMENSION STONE QUARRY SUPERVISOR [address] [facility] [place] [address] Marketing Development Representative Internal Medicine 08/01/24 Liudmila Breaux APRN.SECURITIES SUPERVISOR [address] [place] [address] [facility] Internal Medicine 08/01/24 Literacy Consultant Relationship Specialty Start Date End Date Hector Currie MD [address] [place] [address] PCP - General Internal Medicine 10/06/17 Sarah Herrmann APRN.DIMENSION STONE QUARRY SUPERVISOR [address] [place] [address] [facility] Internal Medicine 08/01/24 Team Status: Inactive Member Role Status Dates Dr. Hector Currie MD Primary Care Provider Active Start: November 30, 2024 End: November 30, 2024 Dr. Rachid Mary MD Attending Provider Active Start: November 30, 2024 End: November 30, 2024 Dr. Rachid Mary MD Referring Provider Active Start: November 30, 2024 End: November 30, 2024 Literacy Consultant Relationship Specialty Start Date End Date Hector Currie MD [address] [place], [place] [address] PCP - General Internal Medicine 10/06/17 Sarah Herrmann, MARTY.DIMENSION STONE QUARRY SUPERVISOR [address] [place] [address] [facility] Internal Medicine 08/01/24 Liudmila Breaux APRN.SECURITIES SUPERVISOR [address] [facility] [place] [address] Marketing Development Representative Internal Medicine 08/01/24 11/11/24 Liudmila Breaux APRN.SECURITIES SUPERVISOR [address] [facility] [place] [address] Marketing Development Representative Internal Medicine 11/15/24 Literacy Consultant Relationship Specialty Start Date End Date Hector Currie MD [address] [facility] [place] [address] PCP - General Internal Medicine 10/06/17 Sarah Herrmann APRN.DIMENSION STONE QUARRY SUPERVISOR [address] [facility] [place] [address] Marketing Development Representative Internal Medicine 08/01/24 Liudmila Breaux APRN.SECURITIES SUPERVISOR [address] [facility] [place] [address] Marketing Development Representative Internal Medicine 11/15/24 Literacy Consultant Relationship Specialty Start Date End Date Hector Currie MD [address] [facility] [place] [address] PCP - General Internal Medicine 10/06/17 Liudmila Breaux APRN.SECURITIES SUPERVISOR [address] [facility] [place] [address] Marketing Development Representative Internal Medicine 11/15/24 Sarah Herrmann APRN.DIMENSION STONE QUARRY SUPERVISOR [address] [facility] [place] [address] Marketing Development Representative Internal Medicine 01/11/25 Literacy Consultant Relationship Specialty Start Date End Date Hector Currie MD [address] [facility] [place] [address] PCP - General Internal Medicine 10/06/17 Sarah Herrmann, MARTY.DIMENSION STONE QUARRY SUPERVISOR [address] [place] [address] Marketing Development Representative Internal Medicine 08/01/24 01/10/25 Liudmila Breaux APRN.SECURITIES SUPERVISOR [address] [facility] [place] [address] Marketing Development Representative Internal Medicine 11/15/24 Sarah Herrmann, TIMBER MILL WORKER.DIMENSION STONE QUARRY SUPERVISOR [address] [place] [address] Marketing Development Representative Internal Medicine 01/11/25 Literacy Consultant Relationship Specialty Start Date End Date Hector Currie MD [address] [facility] [place] [address] PCP - General Internal Medicine 10/06/17 Liudmila Breaux APRN.SECURITIES SUPERVISOR [address] [place] [address] Marketing Development Representative Internal Medicine 11/15/24 Sarah Herrmann, TIMBER MILL WORKER.DIMENSION STONE QUARRY SUPERVISOR [address] [place] [address] [facility] Internal Medicine 01/11/25 Literacy Consultant Relationship Specialty Start Date End Date Hector Currie MD [address] [facility] [place] [address] PCP - General Internal Medicine 10/06/17 Liudmila Breaux TIMBER MILL WORKER.SECURITIES SUPERVISOR [address] [facility] [place] [address] [facility] Internal Medicine 11/15/24 Sarah Herrmann, TIMBER MILL WORKER.[facility] [address] [place] [address] [facility] Internal Medicine 01/11/25 Goals (unrecognized section and [...] BE BASED ON THE PRIMARY CLINICAL RECORDS. [facility] [employer] [facility]. provides no warranty or guarantee of the accuracy or completeness of information in this document.
== END | disposition home or self-care (01) ==
LOC: SL 19:51
PROVIDERS: PCP Internal Medicine; Visit Provider Clinical Nurse Specialist
DX: Z46.89 Encounter for fitting and adjustment of other specified devices (principal)

== ENCOUNTER → 2025-06-08 | Outpatient (CLI) | payer MEDICARE, MEDICAID, SELFPAY ==
--- OUTSIDE RECORDS SUMMARY | 2025-06-08 09:00 | XMS RPT_ITS | CCD ---
Author Organization [facility] Care Team Providers Care Marketing Liaison Name Role Phone Snow Fraserbrigido Ortiz Unavailable Bria Anneliese N Unavailable Snow Fraserbrigido Ortiz Unavailable Yesenia Samaniego Unavailable Hector Currie MD Primary Care Provider Hector Currie MD Primary Care Provider Hector Currie MD Primary Care Provider Hector Currie MD Primary Care Provider Herrmann SALES LEAD.HEALTH CARE SPECIALIST, Sarah Unavailable Ross SALES LEAD.RETAIL SALES MERCHANDISER Liudmila Unavailable Dr. Hector Currie MD Primary Care Provider [phone] Dr. Rachid Mary MD Attending Provider Dr. Rachid Mary MD Referring Provider Rachid Mary Referring Unavailable Rachid Mary Attending Unavailable Hector Currie Primary Care Unavailable Hector Currie Attending Unavailable Hector Currie Primary Care Unavailable Ross SALES LEAD.RETAIL SALES MERCHANDISER, Liudmila Unavailable Ross SALES LEAD.RETAIL SALES MERCHANDISER, Liudmila Unavailable Herrmann SALES LEAD.HEALTH CARE SPECIALIST, Sarah Unavailable Herrmann SALES LEAD.HEALTH CARE SPECIALIST, Sarah Unavailable HECTOR CURRIE Primary Care Unavailable HECTOR CURRIE Primary Care Unavailable HERRMANNSERAFINI Attending Unavailable HERRMANN SARAH Referring Unavailable TALAMPAS, HECTOR D Primary Care Unavailable SARAH HERRMANN Attending Unavailable SELF Referring Unavailable TALAMPAS, HECTOR D Primary Care Unavailable HERRMANN, SARAH Referring Unavailable TALAMPAS, HECTOR D Primary Care Unavailable ROSS, ROSA Attending Unavailable TALAMPAS, HECTOR D Primary Care Unavailable TALAMPAS, HECTOR D Primary Care Unavailable TALAMPAS, HECTOR D Referring Unavailable TALAMPAS, HECTOR D Primary Care Unavailable TALAMPAS, HECTOR D Attending Unavailable TALAMPAS, HECTOR D Primary Care Unavailable TALAMPAS, HECTOR D Referring Unavailable Allergies Allergy Classification Reported Allergen(s) Allergy Type Date of Onset Reaction(s) Facility (20 sources) Seasonal allergy; Translations: [SEASONAL ALLERGIES] Allergy to substance 9 Other: See Comments [facility] Work Phone: Medications Current Medications Medication Drug Class(es) Dates Sig (Normalized) Sig (Original) amoxicillin 875 mg oral tablet (1 source) Penicillin-class Antibacterial Start: 05-23-2023 End: 05-28-2023 take 1 tablet by mouth twice daily amoxicillin (AMOXIL) 875 mg tablet Indications: Toothache Take 1 tablet by mouth two times a day for 5 days. 10 tablet 0 05/23/2023 05/28/2023 Active Comment on above: Take 1 tablet by balta two times a day for 5 days. cephalexin 500 mg oral capsule (1 source) Cephalosporin Antibacterial Start: 12-17-2022 End: 12-24-2022 take 1 capsule by mouth three times daily cephALEXin (KEFLEX) 500 mg capsule Take 1 capsule by mouth three times daily for 7 days. 21 capsule 0 12/17/2022 12/24/2022 Active Comment on above: Take 1 capsule by mo [facility] three times daily for 7 days. citalopram 40 mg oral tablet (5 sources) Serotonin Reuptake Inhibitor Start: 02-08-2016 take 1 tablet by mouth once daily Citalopram 40 MG tablet Active 40 mg PO DAILY February 08, 2016 12:00am cloNIDine hydrochloride 0.1 mg oral tablet (20 sources) Central alpha-2 Adrenergic Agonist Start: 02-08-2016 cloNIDine HCl (CATAPRES) 0.1 mg tablet Takes 1 to 2 pills daily as needed. (per Mother) For anger 10/06/2017 Active Comment on above: Takes 1 to 2 pills d aily as needed. (per Mother) For anger CPAP/BIPAP/OTHER (20 sources) Start: 04-21-2025 End: 09-05-2052 CPAP/BIPAP/OTHER Indications: DWIGHT (obstructive sleep apnea) Type .CPAPSettings into a note to see current settings/supplies /DME information. 1 each 04/21/2025 09/05/2052 Active Start: 07-04-2024 End: 04-21-2025 CPAP/BIPAP/OTHER Indications : DWIGHT (obstructive sleep apnea) Type .CPAPSettings into a note to see current settings/supplies/DME information. 1 Each 07/04/2024 04/21/2025 Discontinued Start: 07-04-2024 End: 11-19-2051 CPAP/BIPAP/OTHER Indications : DWIGHT (obstructive sleep apnea) Type .CPAPSettings into a note to see current settings/supplies/DME information. 1 Each 07/04/2024 11/19/2051 Active Start: 06-14-2024 End: 07-04-2024 CPAP/BIPAP/OTHER Indications : DWIGHT (obstructive sleep apnea) , Class 3 severe obesity due to excess calories with body mass index (BMI) of 40.0 to 44.9 in adult, unspecified whether serious comorbidity present (HCC) Type .CPAPSettings into a note to see current settings/supplies/DME information. 1 Each 06/14/2024 07/04/2024 Discontinued Start: 06-14-2024 End: 10-30-2051 CPAP/BIPAP/OTHER Indications : DWIGHT (obstructive sleep apnea) , Class 3 severe obesity due to excess calories with body mass index (BMI) of 40.0 to 44.9 in adult, unspecified whether serious comorbidity present (HCC) Type .CPAPSettings into a note to see current settings/supplies/DME information. 1 Each 06/14/2024 10/30/2051 Active Start: 08-21-2023 End: 04-05-2024 CPAP/BIPAP/OTHER Indications : DWIGHT (obstructive sleep apnea) Auto bilevel PAP with humidification set at IPAP max 20 cmH2O, EPAP min 9cm H2O and PS of 4 CM H2O. Mask per patient preference. Diagnosis: DWIGHT G47.33 1 Each 0 08/21/2023 04/05/2024 Discontinued Start: 08-21-2023 End: 01-02-2051 CPAP/BIPAP/OTHER Indications : DWIGHT (obstructive sleep apnea) Auto bilevel PAP with humidification set at IPAP max 20 cmH2O, EPAP min 9cm H2O and PS of 4 CM H2O. Mask per patient preference. Diagnosis: DWIGHT G47.33 1 Each 0 08/21/2023 01/02/2051 Active Comment on above: Auto bilevel PAP wit h humidification set at IPAP max 20 cmH2O, EPAP min 9cm H2O and PS of 4 CM H2O. Mask per patient preference. Diagnosis: DWIGHT G47.33 dulaglutide (TRULICITY) 4.5 mg/0.5 mL pen injector (19 sources) Start: 04-21-2025 dulaglutide (TRULICITY) 4.5 mg/0.5 mL pen injector Indications: Primary hypertension , Controlled type 2 diabetes mellitus without complication, without long-term current use of insulin (HCC) , Class 3 severe obesity without serious comorbidity with body mass index (BMI) of 45.0 to 49.9 in adult, unspecified obesity type (HCC) Inject 4.5 mg subcutaneously one time a week. 2 mL 2 04/21/2025 Active Start: 02-07-2025 End: 04-21-2025 dulaglutide (TRULICITY) 4.5 mg/0.5 mL pen injector Indications: Primary hypertension , Controlled type 2 diabetes mellitus without complication, without long-term current use of insulin (HCC) , Class 3 severe obesity without serious comorbidity with body mass index (BMI) of 45.0 to 49.9 in adult, unspecified obesity type (HCC) Inject 4.5 mg subcutaneously one time a week. 2 mL 2 02/07/2025 04/21/2025 Discontinued Start: 02-07-2025 dulaglutide (T RULICITY) 4.5 mg/0.5 mL pen injector Indications: Primary hypertension , Controlled type 2 diabetes mellitus without complication, without long-term current use of insulin (HCC) , Class 3 severe obesity without serious comorbidity with body mass index (BMI) of 45.0 to 49.9 in adult, unspecified obesity type (HCC) Inject 4.5 mg subcutaneously one time a week. 2 mL 2 02/07/2025 Active Start: 11-14-2024 End: 02-07-2025 dulaglutide (TRULICITY) 4.5 mg/0.5 mL pen injector Indications: Primary hypertension , Controlled type 2 diabetes mellitus without complication, without long-term current use of insulin (HCC) , Class 3 severe obesity without serious comorbidity with body mass index (BMI) of 45.0 to 49.9 in adult, unspecified obesity type (HCC) Inject 4.5 mg subcutaneously one time a week. 2 mL 2 11/14/2024 02/07/2025 Discontinued Start: 11-14-2024 dulaglutide (T RULICITY) 4.5 mg/0.5 mL pen injector Indications: Primary hypertension , Controlled type 2 diabetes mellitus without complication, without long-term current use of insulin (HCC) , Class 3 severe obesity without serious comorbidity with body mass index (BMI) of 45.0 to 49.9 in adult, unspecified obesity type Inject 4.5 mg subcutaneously one time a week. 2 mL 2 11/14/2024 Active Start: 11-14-2024 dulaglutide (T RULICITY) 4.5 mg/0.5 mL pen injector Indications: Primary hypertension , Controlled type 2 diabetes mellitus without complication, without long-term current use of insulin (HCC) , Class 3 severe obesity without serious comorbidity with body mass index (BMI) of 45.0 to 49.9 in adult, unspecified obesity type (HCC) Inject 4.5 mg subcutaneously one time a week. 2 mL 2 11/14/2024 Active Start: 08-18-2024 End: 11-14-2024 dulaglutide (TRULICITY) 4.5 mg/0.5 mL pen injector Indications: Primary hypertension , Controlled type 2 diabetes mellitus without complication, without long-term current use of insulin (HCC) , Class 3 severe obesity without serious comorbidity with body mass index (BMI) of 45.0 to 49.9 in adult, unspecified obesity type (HCC) Inject 4.5 mg subcutaneously one time a week. 2 mL 2 08/18/2024 11/14/2024 Discontinued Start: 08-18-2024 dulaglutide (T RULICITY) 4.5 mg/0.5 mL pen injector Indications: Primary hypertension , Controlled type 2 diabetes mellitus without complication, without long-term current use of insulin (HCC) , Class 3 severe obesity without serious comorbidity with body mass index (BMI) of 45.0 to 49.9 in adult, unspecified obesity type (HCC) Inject 4.5 mg subcutaneously one time a week. 2 mL 2 08/18/2024 Active Start: 08-10-2024 End: 08-15-2024 dulaglutide (TRULICITY) 4.5 mg/0.5 mL pen injector Indications: Controlled type 2 diabetes mellitus without complication, without long-term current use of insulin (HCC) , Class 3 severe obesity without serious comorbidity with body mass index (BMI) of 45.0 to 49.9 in adult, unspecified obesity type (HCC) , Primary hypertension Inject 4.5 mg subcutaneously one time a week. 2 mL 2 08/10/2024 08/15/2024 Discontinued Start: 08-10-2024 dulaglutide (T RULICITY) 4.5 mg/0.5 mL pen injector Indications: Controlled type 2 diabetes mellitus without complication, without long-term current use of insulin (HCC) , Class 3 severe obesity without serious comorbidity with body mass index (BMI) of 45.0 to 49.9 in adult, unspecified obesity type (HCC) , Primary hypertension Inject 4.5 mg subcutaneously one time a week. 2 mL 2 08/10/2024 Active Start: 09-28-2023 End: 02-15-2024 dulaglutide (TRULICITY) 4.5 mg/0.5 mL pen injector Inject 4.5 mg subcutaneously one time a week. Start 1 week after last 3 mg dose. 2 mL 2 09/28/2023 02/15/2024 Discontinued Start: 09-28-2023 dulaglutide (T RULICITY) 4.5 mg/0.5 mL pen injector Inject 4.5 mg subcutaneously one time a week. Start 1 week after last 3 mg dose. 2 mL 2 09/28/2023 Active Comment on above: Inject 4.5 mg subcut aneously one time a week. Start 1 week after last 3 mg dose. DULoxetine 60 mg delayed release oral capsule (20 sources) Serotonin and Norepinephrine Reuptake Inhibitor Start: take 1 capsule by mouth twice daily DULoxetine (CYMBALTA) 60 mg capsule Take 1 capsule by mouth two times a day. (Dr. Dasilva) 04/05/2024 Active Start: 11-01-2019 End: 04-05-2024 take 1 capsule by mouth once daily at bedtime DULoxetine (CYMBALTA) 30 mg capsule Take 1 capsule by mouth daily at bedtime. 11/01/2019 04/05/2024 Discontinued Start: 11-01-2019 End: 04-05-2024 take 1 capsule by mouth once daily in the morning DULoxetine (CYMBALTA) 60 mg capsule Take 1 capsule by mouth every morning. 11/01/2019 04/05/2024 Discontinued Comment on above: Take 1 capsule by mo uth every morning. Take 1 capsule by mo uth daily at bedtime. gabapentin 300 mg oral capsule (20 sources) Anti-epileptic Agent Start: 07-29-2024 End: 08-18-2025 take 1 capsule by mouth twice daily gabapentin (NEURONTIN) 300 mg capsule Indications: Spinal stenosis of lumbar region with neurogenic claudication Take 1 capsule by mouth two times a day. 60 capsule 11 08/18/2024 08/18/2025 Active Start: 07-27-2023 End: 07-26-2024 take 1 capsule by mouth twice daily gabapentin (NEURONTIN) 300 mg capsule Indications: Spinal stenosis of lumbar region with neurogenic claudication Take 1 capsule by mouth two times a day. 60 capsule 11 07/27/2023 07/26/2024 Active Start: 10-06-2017 End: 07-22-2023 take 1 capsule by mouth twice daily gabapentin (NEURONTIN) 300 mg capsule Indications: Spinal stenosis of lumbar region with neurogenic claudication Take 1 capsule by mouth twice daily. 10/06/2017 07/22/2022 Discontinued Start: 02-08-2016 take 2 capsules by m out three times daily at mealtime Gabapentin 100 MG capsule Active 200 mg PO 3 TIMES DAILY WITH MEALS February 08, 2016 12:00am Start: 02-08-2016 take 200 mg by mouth three times daily at mealtime Gabapentin Active 200 MG PO 3 TIMES DAILY WITH MEALS February 07, 2016 11:00pm Comment on above: Take 1 capsule by mo uth twice daily. Take 1 capsule by mo uth two times a day. 200 actuat levalbuterol 0.045 mg/actuat metered dose inhaler (20 sources) beta2-Adrenergic Agonist Start: take 1-2 puff(s) by inhalation every six hours as needed for wheezing levalbuterol tartrate HFA 45 mcg/actuation inhaler Indications: Mild intermittent asthma without complication (HCC) Inhale 1-2 Puffs as instructed every 6 hours as needed for wheezing/shortness of breath. 1 Each 5 07/27/2023 Active Start: 07-22-2022 take 1-2 puff(s) by inhalation every six hours as needed for wheezing levalbuterol tartrate HFA 45 mcg/actuation inhaler Indications: Mild intermittent asthma without complication Inhale 1-2 Puffs as instructed every 6 hours as needed for wheezing/shortness of breath. 1 Each 5 07/22/2022 Active Comment on above: Inhale 1-2 Puffs as instructed every 6 hours as needed for wheezing/shortness of breath. lisinopril 10 mg oral tablet (20 sources) Angiotensin Converting Enzyme Inhibitor Start: 08-18-20 take 1 tablet by mouth once daily lisinopril (ZESTRIL) 5 mg tablet Indications: Primary hypertension Take 1 tablet by mouth once daily. Take with 10 mg lisinopril once daily 30 tablet 08/18/2024 Active Start: 08-18-2024 take 1 tablet by balta th once daily lisinopril (ZESTRIL) 10 mg tablet Indications: Primary hypertension Take 1 tablet by mouth once daily. Take with 5 mg lisinopril once daily 30 tablet 08/18/2024 Active Start: 07-27-2023 End: 08-15-2024 take 1 tablet by mouth once daily lisinopril (ZESTRIL) 5 mg tablet Indications: Primary hypertension Take 1 tablet by mouth once daily. Take with 10 mg lisinopril once daily 30 tablet 08/15/2024 08/15/2024 Discontinued Start: 10-14-2021 End: 07-22-2022 take 1 tablet by mouth once daily lisinopril (ZESTRIL, PRINIVIL) 5 mg tablet Take 1 tablet by mouth once daily. Take with 10 mg lisinopril once daily 30 tablet 10/14/2021 07/22/2022 Discontinued Start: 07-11-2021 End: 08-15-2024 take 1 tablet by mouth once daily lisinopril (ZESTRIL) 10 mg tablet Indications: Primary hypertension Take 1 tablet by mouth once daily. Take with 5 mg lisinopril once daily 30 tablet 11 08/15/2024 08/15/2024 Discontinued Comment on above: Take 1 tablet by balta th once daily. Take with 5 mg lisinopril once daily Take 1 tablet by balta th once daily. Take with 10 mg lisinopril once daily loratadine 10 mg oral tablet (5 sources) Start: 6 take 1 tablet by mouth once daily Loratadine (Claritin) 10 MG tablet Active 10 mg PO DAILY February 08, 2016 12:00am naproxen 500 mg oral tablet (7 sources) Nonsteroidal Anti-inflammatory Drug Start: 0 End: 2 take 1 tablet by mouth every twelve hours as needed naproxen (NAPROSYN) 500 mg tablet Take 1 tablet by mouth twice daily as needed. 0 11/01/2019 02/05/2022 Discontinued Start: 07-02-2017 EC-NAPROSYN 50 0 MG [facility] NAPROXEN [id number] Rita Almodovar Comment on above: Take 1 tablet by balta th twice daily as needed. omeprazole 40 mg delayed release oral capsule (20 sources) Proton Pump Inhibitor Start: take 1 capsule by mouth once daily omeprazole (PRILOSEC) 40 mg capsule Indications: Gastroesophageal reflux disease, unspecified whether esophagitis present Take 1 capsule by mouth once daily. 30 capsule 08/18/2024 Active Start: 09-16-2023 End: 08-15-2024 take 1 capsule by mouth once daily omeprazole (PRILOSEC) 40 mg capsule Indications: Gastroesophageal reflux disease, unspecified whether esophagitis present Take 1 capsule by mouth once daily. 30 capsule 08/15/2024 08/15/2024 Discontinued Start: 09-17-2022 End: 10-17-2022 take 1 capsule by mouth once daily omeprazole (PRILOSEC) 40 mg capsule Indications: Gastroesophageal reflux disease, unspecified whether esophagitis present Take 1 capsule by mouth once daily. 30 capsule 09/17/2022 Active Start: 12-03-2021 End: 09-17-2022 take 1 capsule by mouth once daily omeprazole (PRILOSEC) 20 mg capsule Take 1 capsule by mouth once daily. 30 capsule 11 02/11/2022 07/22/2022 Discontinued Comment on above: Take 1 capsule by mo [facility] once daily. oseltamivir 75 mg oral capsule (1 source) Neuraminidase Inhibitor Start: 10-10-19 End: 10-15-19 take 1 capsule by mouth twice daily oseltamivir (TAMIFLU) 75 mg capsule Indications: Influenza A Take 1 capsule by mouth two times a day for 5 days. 10 capsule 10/10/2024 10/15/2024 Active perflutren lipid microspheres 1.3 mL in NaCl (PF) 0.9% 10 mL injection (DEFINITY) (19 sources) Start: 04-29-20 End: 07-29-20 23 perflutren lipid microspheres 1.3 mL in NaCl (PF) 0.9% 10 mL injection (DEFINITY) risperiDONE 3 mg oral tablet (20 sources) Atypical Antipsychotic Start: 11-01-19 take 1 tablet by mouth twice daily risperiDONE (RISPERDAL) 3 mg tablet Take 1 tablet by mouth twice daily. 11/01/2019 Active Start: 07-02-2017 RISPERDAL 2 MG TABS RISPERIDONE [id number] Rita Almodovar Start: 02-08-2016 take 1 tablet by balta th once daily Risperidone (Risperdal) 3 MG tablet Active 3 mg PO DAILY February 08, 2016 12:00am Comment on above: Take 1 tablet by balta twice daily. rosuvastatin calcium 5 mg oral tablet (2 sources) HMG-CoA Reductase Inhibitor Start: 04-21-20 End: 04-21-20 take 1 tablet by mouth once daily rosuvastatin (CRESTOR) 5 mg tablet Indications: Controlled type 2 diabetes mellitus without complication, without long-term current use of insulin (HCC) Take 1 tablet by mouth once daily. 30 tablet 11 04/21/2025 04/21/2026 Active 125 ml sodium chloride 9 mg/ml prefilled syringe (19 sources) Start: 04-29-20 End: 07-29-20 sodium chloride 0.9 % (flush) 10 mL (BD POSIFLUSH) traMADol hydrochloride 50 mg oral tablet (9 sources) Opioid Agonist Start: 02-08-20 16 take 1 tablet by mouth three times daily Tramadol 50 MG tablet Active 50 mg PO THREE TIMES A DAY February 08, 2016 12:00am triamcinolone acetonide 0.25 mg/ml topical cream (20 sources) Corticosteroid Start: 08-18-20 triamcinolone (KENALOG) 0.025 % cream Indications: Rash Apply 1 application to affected area two times a day. Up to 14 days per rash 30 g 3 08/18/2024 Active Start: 08-01-2024 End: 08-15-2024 triamcinolone (KENALOG) 0.02 5 % cream Indications: Rash Apply 1 application to affected area two times a day. Up to 14 days per rash 30 g 3 08/01/2024 08/15/2024 Discontinued Start: 04-09-2018 End: 07-28-2024 triamcinolone (KENALOG) 0.02 5 % cream Indications: Rash Apply 1 application to affected area two times a day. Up to 14 days per rash 30 g 3 04/05/2024 07/28/2024 Discontinued Comment on above: Apply 1 application to affected area twice daily. divalproex sodium 500 mg delayed release oral tablet (20 sources) Mood Stabilizer, Anti-epileptic Agent Start: 02-08-2016 take 1 tablet by mouth twice daily Divalproex (Depakote) 500 MG tablet,delayed release (DR/EC) Active 500 mg PO TWICE A DAY February 08, 2016 12:00am take 1 tablet by mouth twice dario ly divalproex ER 500 mg 24 hr tablet Take 1,000 mg by mouth twice daily. Active Comment on above: Take 1,000 mg by balta th twice daily. Completed/Discontinued Medications Medication Drug Class(es) Dates Sig (Normalized) Sig (Original) acetaminophen 325 mg / HYDROcodone bitartrate 5 mg oral tablet (4 sources) Opioid Agonist Start: 07-02-2017 NORCO 5-325 MG TABS HYDROCODONE-ACETAM INOPHEN [id number] Rita Almodovar [id number] 200 actuat albuterol 0.09 mg/actuat metered dose inhaler (14 sources) beta2-Adrenergic Agonist Start: 11-01-2019 End: 07-22-2022 take 2 puff(s) by inhalation every six hours as needed for wheezing albuterol HFA (PROVENTIL HFA, VENTOLIN HFA) 90 mcg/actuation inhaler Indications: Mild intermittent asthma without complication Inhale 2 Puffs as instructed every 6 hours as needed for Wheezing/Shortness of Breath. 1 Inhaler 2 11/01/2019 07/22/2022 Discontinued Comment on above: Inhale 2 Puffs as in structed every 6 hours as needed for Wheezing/Shortness of Breath. bisacodyl 5 mg delayed release oral tablet (6 sources) Stimulant Laxative Start: 12-03-2021 Bisacodyl (DULCOLAX) 5 mg tab Indications: Family history of colon cancer , Colon cancer screening , Family history of colon cancer in father Use as directed for Miralax / Gatorade Bowel Prep Kit 4 tablet 0 12/03/2021 Active Comment on above: Use as directed for Miralax / Gatorade Bowel Prep Kit CPAP (20 sources) Start: 07-15-2023 End: 04-05-2024 CPAP Initiate Auto PAP @ 5-20 cm of water with humidification. Mask (per patient preference) optional chin strap (if indicated) , filters, tubing, humidifier and lifetime supplies. 1 Each 0 07/15/2023 04/05/2024 Discontinued Start: 07-15-2023 CPAP Initiate Auto PAP @ 5-20 cm of water with humidification. Mask (per patient preference) optional chin strap (if indicated) , filters, tubing, humidifier and lifetime supplies. 1 Each 0 07/15/2023 Active Start: 12-04-2022 CPAP Initiate Auto PAP @ 5-20 cm of water with humidification. Mask (per patient preference) optional chin strap (if indicated) , filters, tubing, humidifier and lifetime supplies. 1 Each 0 12/04/2022 Active Start: 12-04-2022 End: 12-04-2022 CPAP Initiate Auto PAP @ 5-2 0 cm of water with humidification. Mask (per patient preference) optional chin strap (if indicated) , filters, tubing, humidifier and lifetime supplies. 1 Each 0 12/04/2022 12/04/2022 Discontinued Start: 11-06-2020 End: 12-04-2022 CPAP Initiate Auto PAP @ 5-2 0 cm of water with humidification. Mask (per patient preference) optional chin strap (if indicated) , filters, tubing, humidifier and lifetime supplies. 1 Device 11/06/2020 12/04/2022 Discontinued Start: 11-06-2020 End: 12-04-2022 CPAP Initiate Auto PAP @ 5-2 0 cm of water with humidification. Mask (per patient preference) optional chin strap (if indicated) , filters, tubing, humidifier and lifetime supplies. 1 Device 0 11/06/2020 12/04/2022 Discontinued Start: 11-06-2020 CPAP Initiate Auto PAP @ 5-20 cm of water with humidification. Mask (per patient preference) optional chin strap (if indicated) , filters, tubing, humidifier and lifetime supplies. 1 Device 0 11/06/2020 Active Comment on above: Initiate Auto PAP @ 5-20 cm of water with humidification. Mask (per patient preference) optional chin strap (if indicated) , filters, tubing, humidifier and lifetime supplies. cyclobenzaprine hydrochloride 10 mg oral tablet (4 sources) Muscle Relaxant Start: 7 CYCLOBENZAPRINE HCL 10 MG TABS CYCLOBENZAPRINE HCL [id number] Rita Almodovar 0.5 ml dulaglutide 3 mg/ml auto-injector (20 sources) GLP-1 Receptor Agonist Start: End: 4 dulaglutide (TRULICITY) 1.5 mg/0.5 mL pen injector Indications: Controlled type 2 diabetes mellitus without complication, without long-term current use of insulin (HCC) , Class 3 severe obesity without serious comorbidity with body mass index (BMI) of 45.0 to 49.9 in adult, unspecified obesity type (HCC) , Primary hypertension Inject 1.5 mg subcutaneously one time a week. Fill this RX if the 3mg dose is not available. 2 mL 2 04/05/2024 08/10/2024 Discontinued (Duplicate Entry) Start: 02-15-2024 End: 04-05-2024 dulaglutide (TRULICITY) 1.5 mg/0.5 mL pen injector Indications: Controlled type 2 diabetes mellitus without complication, without long-term current use of insulin (HCC) , Class 3 severe obesity without serious comorbidity with body mass index (BMI) of 45.0 to 49.9 in adult, unspecified obesity type (HCC) , Primary hypertension Inject 1.5 mg subcutaneously one time a week. Fill this RX if the 3mg dose is not available. 2 mL 2 04/05/2024 Active Start: 10-03-2022 End: 12-26-2022 dulaglutide (TRULICITY) 1.5 mg/0.5 mL pen injector Indications: Class 3 severe obesity without serious comorbidity with body mass index (BMI) of 45.0 to 49.9 in adult, unspecified obesity type (HCC) , Prediabetes , Primary hypertension Inject 1.5 mg subcutaneously one time a week. start 1 week after last 0.75 mg dose 2 mL 1 11/04/2022 12/26/2022 Discontinued Start: 10-03-2022 End: 11-04-2022 dulaglutide (TRULICITY) 0.75 mg/0.5 mL pen injector Indications: Class 3 severe obesity without serious comorbidity with body mass index (BMI) of 45.0 to 49.9 in adult, unspecified obesity type (HCC) , Prediabetes , Primary hypertension Inject 0.75 mg subcutaneously one time a week. for 4 weeks. 2 mL 0 10/03/2022 11/04/2022 Discontinued Comment on above: Inject 0.75 mg subcu taneously one time a week. for 4 weeks. Inject 1.5 mg subcut aneously one time a week. start 1 week after last 0.75 mg dose dulaglutide (TRULICITY) 3 mg/0.5 mL pen injector (20 sources) Start: 07-13-2024 End: 08-09-2024 dulaglutide (TRULICITY) 3 mg/0.5 mL pen injector Indications: Controlled type 2 diabetes mellitus without complication, without long-term current use of insulin (HCC) , Class 3 severe obesity without serious comorbidity with body mass index (BMI) of 45.0 to 49.9 in adult, unspecified obesity type (HCC) , Primary hypertension Inject 3 mg subcutaneously one time a week. 2 mL 2 07/13/2024 08/09/2024 Discontinued Start: 07-13-2024 dulaglutide (T RULICITY) 3 mg/0.5 mL pen injector Indications: Controlled type 2 diabetes mellitus without complication, without long-term current use of insulin (HCC) , Class 3 severe obesity without serious comorbidity with body mass index (BMI) of 45.0 to 49.9 in adult, unspecified obesity type (HCC) , Primary hypertension Inject 3 mg subcutaneously one time a week. 2 mL 2 07/13/2024 Active Start: 04-05-2024 End: 07-12-2024 dulaglutide (TRULICITY) 3 mg /0.5 mL pen injector Indications: Controlled type 2 diabetes mellitus without complication, without long-term current use of insulin (HCC) , Class 3 severe obesity without serious comorbidity with body mass index (BMI) of 45.0 to 49.9 in adult, unspecified obesity type (HCC) , Primary hypertension Inject 3 mg subcutaneously one time a week. 2 mL 2 04/05/2024 07/12/2024 Discontinued Start: 04-05-2024 dulaglutide (T RULICITY) 3 mg/0.5 mL pen injector Indications: Controlled type 2 diabetes mellitus without complication, without long-term current use of insulin (HCC) , Class 3 severe obesity without serious comorbidity with body mass index (BMI) of 45.0 to 49.9 in adult, unspecified obesity type (HCC) , Primary hypertension Inject 3 mg subcutaneously one time a week. 2 mL 2 04/05/2024 Active Start: 09-28-2023 End: 02-15-2024 dulaglutide (TRULICITY) 3 mg /0.5 mL pen injector Inject 3 mg subcutaneously one time a week. for 4 weeks then increase to 4.5 mg dose. 2 mL 0 09/28/2023 02/15/2024 Discontinued Start: 09-28-2023 dulaglutide (T RULICITY) 3 mg/0.5 mL pen injector Inject 3 mg subcutaneously one time a week. for 4 weeks then increase to 4.5 mg dose. 2 mL 0 09/28/2023 Active Start: 08-14-2023 End: 09-28-2023 inject 3 mg by subcutaneous injection every week dulaglutide (TRULICITY) 3 mg/0.5 mL pen injector Inject 3 mg subcutaneously one time a week. 2 mL 3 08/14/2023 09/28/2023 Discontinued Start: 08-14-2023 inject 3 mg by subcu taneous injection every week dulaglutide (TRULICITY) 3 mg/0.5 mL pen injector Inject 3 mg subcutaneously one time a week. 2 mL 3 08/14/2023 Active Start: 03-31-2023 inject 3 mg by subcu taneous injection every week dulaglutide (TRULICITY) 3 mg/0.5 mL pen injector Inject 3 mg subcutaneously one time a week. 2 mL 3 03/31/2023 Active Start: 12-26-2022 inject 3 mg by subcu taneous injection every week dulaglutide (TRULICITY) 3 mg/0.5 mL pen injector Inject 3 mg subcutaneously one time a week. 2 mL 3 12/26/2022 Active Comment on above: Inject 3 mg subcutan eously one time a week. Inject 3 mg subcutan eously one time a week. for 4 weeks then increase to 4.5 mg dose. magnesium carbonate (20 sources) End: 04-05-2024 MAGNESIUM CARBONATE ORAL Take 1 tablet by mouth. 04/05/2024 Discontinued End: 04-05-2024 MAGNESIUM CARBONATE ORAL Hema e 1 tablet by mouth. 0 04/05/2024 Discontinued MAGNESIUM CARBON ATE ORAL Take 1 tablet by mouth. 0 Active Comment on above: Take 1 tablet by balta th. polyethylene glycol 3350 86061 mg powder for oral solution (6 sources) Osmotic Laxative Start: 12-03-2021 polyethylene glycol 3350 (MIRALAX, GLYCOLAX) 17 gram/dose powder Indications: Family history of colon cancer , Colon cancer screening , Family history of colon cancer in father Use as directed for Miralax / Gatorade Bowel Prep Kit 238 g 0 12/03/2021 Active Comment on above: Use as directed for Miralax / Gatorade Bowel Prep Kit Problems Active Problems Problem Classification Problem Date Documented Da te Episodic/Chronic Administrative/social admission (1 source) Financial problem; Translations: [Problem related to housing and economic circumstances, unspecified] 09-22-2023 Episodic Asthma (20 sources) Asthma; Translations: [Unspecified asthma, uncomplicated] Onset: 0 03-05-2010 Chronic Developmental disorders (20 sources) Moderate intellectual disability; Translations: [Moderate intellectual disabilities] Onset: 8 10-19-2018 Chronic Diabetes mellitus without complication (20 sources) Type 2 diabetes mellitus without complication; Translations: [Type 2 diabetes mellitus without complications] Onset: 4 09-28-2023 Chronic Disorders of lipid metabolism (3 sources) Raised low density lipoprotein cholesterol; Translations: [Pure hypercholesterolemia, unspecified] Onset: 5 Chronic Disorders of teeth and jaw (1 source) Toothache; Translations: [Other specified disorders of teeth and supporting structures] 05-23-2023 Episodic Disorders usually diagnosed in infancy, childhood, or adolescence (20 sources) Attention deficit hyperactivity disorder, predominantly inattentive type; Translations: [Other specified behavioral and emotional disorders with onset usually occurring in childhood and adolescence] Onset: 6 12-13-2019 Chronic Esophageal disorders (20 sources) Gastroesophageal reflux disease; Translations: [Gastro-esophageal reflux disease without esophagitis] Onset: 2 Chronic Essential hypertension (20 sources) Essential hypertension; Translations: [Essential (primary) hypertension] Onset: 0 05-15-2020 Chronic Genitourinary symptoms and ill-defined conditions (20 sources) Intermittent urinary incontinence; Translations: [Unspecified urinary incontinence] Onset: 5 12-15-2014 Chronic Immunizations and screening for infectious disease (1 source) Contact with or exposure to other viral diseases; Translations: [Exposure to confirmed case of COVID-19] Episodic Influenza (1 source) Influenza due to Influenza A virus; Translations: [Influenza due to other identified influenza virus with other respiratory manifestations] 10-10-2024 Episodic Mood disorders (20 sources) Reactive depression (situational); Translations: [Major depressive disorder, single episode, unspecified] Onset: 6 10-23-2017 Chronic Nonspecific chest pain (6 sources) Chest pain; Translations: [Chest pain, unspecified] 07-19-2021 Episodic Open wounds of extremities (2 sources) Puncture wound and foreign body of foot; Translations: [Puncture wound with foreign body, left foot, initial encounter] Episodic Other aftercare (1 source) Long-term current use of drug therapy; Translations: [Other senior living (current) drug therapy] 03-26-2024 Episodic Other congenital anomalies (20 sources) Congenital pes planus; Translations: [Congenital pes planus, unspecified foot] Onset: 1 09-27-2010 Chronic Other connective tissue disease (2 sources) Pain in right foot; Translations: [Pain in right foot] Episodic Other connective tissue disease (1 source) Pain in left foot; Translations: [Pain in left foot] Episodic Other ear and sense organ disorders (1 source) Excessive cerumen in ear canal ; Translations: [Impacted cerumen, right ear] Episodic Other ear and sense organ disorders (1 source) Impacted cerumen in left ear; Translations: [Impacted cerumen, left ear] Episodic Other gastrointestinal disorders (2 sources) Dysphagia; Translations: [Dysphagia, unspecified] Episodic Other infections; including parasitic (1 source) H/O: viral illness; Translations: [Personal history of other infectious and parasitic diseases] 01-04-2024 Episodic Other lower respiratory disease (4 sources) Dyspnea on exertion; Translations: [Shortness of breath] Episodic Other lower respiratory disease (2 sources) Cough; Translations: [Acute cough] 11-06-2023 Episodic Other nervous system disorders (20 sources) Disorder of the peripheral nervous system; Translations: [Hereditary and idiopathic neuropathy, unspecified] Onset: 7 10-27-2016 Chronic Other non-traumatic joint disorders (1 source) Acute ankle pain; Translations: [Pain in left ankle and joints of left foot] Episodic Other nutritional; endocrine; and metabolic disorders (11 sources) Body mass index 40+ - severely obese; Translations: [Morbid (severe) obesity due to excess calories] Onset: 5 11-13-2017 Chronic Other nutritional; endocrine; and metabolic disorders (20 sources) Severe obesity; Translations: [Morbid (severe) obesity due to excess calories] Onset: 5 Chronic Other nutritional; endocrine; and metabolic disorders (5 sources) Body mass index (BMI) 45.0-49.9, adult; Translations: [Class 3 severe obesity without serious comorbidity with body mass index (BMI) of 45.0 to 49.9 in adult, unspecified obesity type (HCC)] Onset: 2 Chronic Other nutritional; endocrine; and metabolic disorders (1 source) Morbid (severe) obesity due to excess calories; Translations: [Class 3 severe obesity due to excess calories with body mass index (BMI) of 45.0 to 49.9 in adult, unspecified whether serious comorbidity present (HCC)] Onset: 2 Chronic Other nutritional; endocrine; and metabolic disorders (1 source) Weight gain; Translations: [Abnormal weight gain] Episodic Other skin disorders (4 sources) Eruption; Translations: [Rash and other nonspecific skin eruption] 01-04-2024 Episodic Other upper respiratory infections (5 sources) Acute upper respiratory infection; Translations: [Acute upper respiratory infection, unspecified] Episodic Residual codes; unclassified (20 sources) Obstructive sleep apnea syndrome; Translations: [Obstructive sleep apnea (adult) (pediatric)] Onset: 8 06-22-2018 Chronic Residual codes; unclassified (3 sources) Obstructive sleep apnea (adult) (pediatric); Translations: [Obstructive sleep apnea (adult) (pediatric)] Onset: 4 Chronic Residual codes; unclassified (1 source) Bilateral lower limb edema; Translations: [Localized edema] Episodic Residual codes; unclassified (4 sources) Edema of right lower limb; Translations: [Localized edema] 09-16-2022 Episodic Residual codes; unclassified (1 source) Viral syndrome; Translations: [Other general symptoms and signs] 10-10-2024 Episodic Unclassified (2 sources) No current problems or disability 07-08-2017 Unclassified (1 source) Class 3 severe obesity without serious comorbidity with body mass index (BMI) of 45.0 to 49.9 in adult, unspecified obesity type (HCC); Translations: [Class 3 severe obesity without serious comorbidity with body mass index (BMI) of 45.0 to 49.9 in adult, unspecified obesity type (HCC)] Onset: 5 Unclassified (1 source) Class 3 severe obesity with body mass index (BMI) of 45.0 to 49.9 in adult (HCC); Translations: [Class 3 severe obesity with body mass index (BMI) of 45.0 to 49.9 in adult (HCC)] Onset: 2 Unclassified (1 source) Class 3 severe obesity due to excess calories with body mass index (BMI) of 45.0 to 49.9 in adult, unspecified whether serious comorbidity present; Translations: [Class 3 severe obesity due to excess calories with body mass index (BMI) of 45.0 to 49.9 in adult, unspecified whether serious comorbidity present] Onset: 5 Unclassified (1 source) Class 3 severe obesity without serious comorbidity with body mass index (BMI) of 45.0 to 49.9 in adult, unspecified obesity type; Translations: [Class 3 severe obesity without serious comorbidity with body mass index (BMI) of 45.0 to 49.9 in adult, unspecified obesity type] Onset: 5 Unclassified (1 source) Class 3 severe obesity due to excess calories with body mass index (BMI) of 45.0 to 49.9 in adult, unspecified whether serious comorbidity present (HCC); Translations: [Class 3 severe obesity due to excess calories with body mass index (BMI) of 45.0 to 49.9 in adult, unspecified whether serious comorbidity present (HCC)] Onset: 2 Past or Other Problems Problem Classification Problem Date Documented Da te Episodic/Chronic Anxiety disorders (20 sources) Anger reaction; Translations: [Irritability and anger] Onset: 07-14-2012 07-14-2012 Episodic Diabetes mellitus without complication (20 sources) Prediabetes; Translations: [Prediabetes] Onset: 02-05-2022 Resolved: 04-21-2025 Episodic Other connective tissue disease (20 sources) Plantar fascial fibromatosis; Translations: [Plantar fascial fibromatosis] Onset: 06-30-2017 06-30-2017 Episodic Other connective tissue disease (20 sources) Tendinitis; Translations: [Enthesopathy, unspecified] Onset: 09-27-2010 Resolved: 07-14-2012 07-14-2012 Episodic Other gastrointestinal disorders (20 sources) Encopresis ; Translations: [Full incontinence of feces] Onset: 12-15-2014 12-15-2014 Episodic Other nervous system disorders (20 sources) Abnormal gait; Translations: [Unspecified abnormalities of gait and mobility] Onset: 06-30-2017 06-30-2017 Episodic Other screening for suspected conditions (not mental disorders or infectious disease) (20 sources) Patient encounter status; Translations: [Encounter for screening for malignant neoplasm of colon] Onset: 02-05-2022 Episodic Residual codes; unclassified (20 sources) Family history of cancer of colon; Translations: [Family history of malignant neoplasm of digestive organs] Onset: 02-05-2022 Episodic Residual codes; unclassified (20 sources) History of lumbar laminectomy; Translations: [Other specified postprocedural states] Onset: 09-24-2019 12-13-2019 Episodic Screening and history of mental health and substance abuse codes (1 source) Encounter for screening examination for other mental health and behavioral disorders; Translations: [Encounter for screening examination for other mental health and behavioral disorders] Onset: 08-15-2024 Episodic Spondylosis; intervertebral disc disorders; other back problems (20 sources) Spinal stenosis of lumbar region; Translations: [Low back pain] Onset: 07-07-2017 07-12-2017 Episodic Sprains and strains (20 sources) Sprain of foot; Translations: [Unspecified sprain of unspecified foot, initial encounter] Onset: 09-27-2010 Resolved: 07-14-2012 07-14-2012 Episodic Unclassified (5 sources) h/o tonsilectomy 03-15-2022 Results Test Name Value Interpretation Reference Range Facility [facility] 05-15-2025 CNPN Telephone (INTMWS) NIKO BROOKE ([id number]) 1990 M [place] Date Time Provider Department 05/15/25 [facility] INTWS During your visit today, we recorded the following information about you: Deedee Garcia RN 05/15/2025 9:43 AM Signed Mother phoned asking polysomnogram / titration orders be send to [facility] Sleep lab. . Advised mother per previous encounter pt had a sleep study done at [facility] on 06/29/24 and that sleep study / bipap order was sent to [facility]. Mother will clarify with [facility] if pt actually needs to have another sleep study this soon and call back to let pcp office know if the orders actually do need to be faxed to [facility] sleep lab. Barbara Posada RN 05/15/2025 9:49 AM Signed Patient's mother calls back and states that she had talked to [employer] again. Insurance is requiring that patient get another sleep study done due to patient not being compliant. Mother asking if orders can be placed for sleep study and the orders be faxed to [facility] Sleep lab at [phone]. TYLER Babb Terri, MARTY.HEALTH CARE SPECIALIST 05/18/2025 4:38 PM Signed OK, order filed, please send to [facility] per request Amanda Lorenzana LPN 05/19/2025 10:47 AM Signed Order has been faxed to [facility] sleep lab at number below Carol Simon LPN 05/23/2025 3:38 PM Signed Patient mother Lanie harley asked when order was faxed to [facility]. Went over notes below and she will call [facility] since not called to get scheduled as yet. Allergies As of Date: 05/15/2025 Noted Allergy Reaction SEASONAL ALLERGIES 07/06/2019 16 - Unknown Date Reviewed: 04/21/2025 Reviewed by: Paola Tellez LPN - Fully Assessed Reason for Visit: Sleep study [Other] Primary Visit Diagnosis:DWIGHT (obstructive sleep apnea) [G47.33] Other Visit Diagnoses:Primary hypertension [I10] Controlled type 2 diabetes mellitus without complication, without long-term current use of insulin (HCC) [E11.9] Mild intermittent asthma without complication ([facility]) [J45.20] 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 [F71] Class 3 severe obesity with body mass index (BMI) of 45.0 to 49.9 in adult ([facility]) [E66.813, Z68.42] Enuresis [R32] Order(s):PAP TITRATION PSG (CPAP, BIPAP, ASV) [5604655] Order #: [id number] FUTURE POLYSOMNOGRAM (PSG) [4821049] Order #: [id number] FUTURE Prescriptions as of 05/23/2025 - CPAP/BIPAP/OTHER Bi-level PAP at following settings: IPAP 17 cm water, EPAP 11 cm water - dulaglutide (TRULICITY) 4.5 mg/0.5 mL pen injector Inject 4.5 mg subcutaneously one time a week. - rosuvastatin (CRESTOR) 5 mg tablet Take 1 tablet by mouth once daily. - lisinopril (ZESTRIL) 10 mg tablet Take 1 tablet by mouth once daily. Take with 5 mg lisinopril once daily - lisinopril (ZESTRIL) 5 mg tablet Take 1 tablet by mouth once daily. Take with 10 mg lisinopril once daily - omeprazole (PRILOSEC) 40 mg capsule Take 1 capsule by mouth once daily. - triamcinolone (KENALOG) 0.025 % cream Apply 1 application to affected area two times a day. Up to 14 days per rash - gabapentin (NEURONTIN) 300 mg capsule Take 1 capsule by mouth two times a day. - DULoxetine (CYMBALTA) 60 mg capsule Take 1 capsule by mouth two times a day. (Dr. Dasilva) - levalbuterol tartrate HFA 45 mcg/actuation inhaler Inhale 1-2 Puffs as instructed every 6 hours as needed for wheezing/shortness of breath. - risperiDONE (RISPERDAL) 3 mg tablet Take 1 tablet by mouth twice daily. - cloNIDine HCl (CATAPRES) 0.1 mg tablet Takes 1 to 2 pills daily as needed. (per Mother) For anger - divalproex ER 500 mg 24 hr tablet Take 1,000 mg by mouth twice daily. Problem List As Of Date 05/15/2025 Noted Resolved Reactive depression [F32.9] 04/18/2006 Attention deficit disorder [F98.8] 04/18/2006 Moderate intellectual disability with intellige*10/12/2007 Mild intermittent asthma [J45.20] 03/05/2010 Tendonitis [M77.9] 09/27/2010 07/14/2012 Sprain of foot, unspecified site [S93.609A] 09/27/2010 07/14/2012 Congenital pes planus [Q66.50] 09/27/2010 Excessive anger [R45.4] 07/14/2012 Class 3 severe obesity with body mass index (BM*12/15/2014 Encopresis [R15.9] 12/15/2014 Enuresis [R32] 12/15/2014 Hereditary and idiopathic peripheral neuropathy*10/27/2016 Plantar fascial fibromatosis [M72.2] 06/30/2017 Abnormal gait [R26.9] 06/30/2017 DWIGHT (obstructive sleep apnea) [G47.33] 06/22/2018 Spinal stenosis of lumbar region with neurogeni*05/10/2019 S/P lumbar laminectomy [Z98.890] 09/2019 Primary hypertension [I10] 05/15/2020 GERD (gastroesophageal reflux disease) [K21.9] 02/05/2022 Prediabetes [R73.03] 02/05/2022 04/21/2025 Family history of colon cancer [Z80.0] 02/05/2022 Colon cancer screening [Z12.11] 02/05/2022 Diabetes mellitus type 2, controlled, without c*09/28/2023 Encounter Status:Closed by AM[facility] (INTMWS[facility] NIKO BROOKE ([id number]) 1990 M [employer] Date Time Provider Department 05/09/25 [facility] INTMWS During your visit today, we recorded the following information about you: Piotr Lindsey RN 05/09/2025 9:37 AM Signed Mother (Lanie) calls to report that [facility] received orders for C-Pap machine and supplies and are requiring a new sleep study before they are able to dispense a new machine. Lanie requests orders be placed and then call [phone] to schedule. Please review and advise, TYLER Gunderson [place], MA 05/12/2025 10:28 AM Addendum Patient had titration psg FOR BI-level PAP on 06/29/[address] [facility] and is scanned in already to file. Printed it recent sleep study updated bipap rx with pressure settings from 07/17 study Faxed both to [facility] Mother aware of everything above and notified patient will need follow up 30 days after receiving device since was un-compliant in past. GENARO Martinez Terri, MARTY.HEALTH CARE SPECIALIST 05/15/2025 1:16 PM Signed Check to see if device received, if so schedule the 30 day follow up visit with me or PCP. Pauline Hein LPN 2025 3:57 PM Signed Spoke with patient and mother and he is scheduled for a psp titration next month or 2 and will schedule follow up once he has used PAP machine for 30 days. Allergies As of Date: 05/09/2025 Noted Allergy Reaction SEASONAL ALLERGIES 07/06/2019 16 - Unknown Date Reviewed: 04/21/2025 Reviewed by: Paola Tellez LPN - Fully Assessed Reason for Visit: Patient Update [1234] Orders [681] Visit Diagnosis:DWIGHT (obstructive sleep apnea) [G47.33] Order(s):CPAP/BIPAP/O THERBi-level PAP at following settings: IPAP 17 cm water, EPAP 11 cm waterDisp: 1 eachRfl: 0 Prescriptions as of 2025 - CPAP/BIPAP/OTHER Bi-level PAP at following settings: IPAP 17 cm water, EPAP 11 cm water - dulaglutide (TRULICITY) 4.5 mg/0.5 mL pen injector Inject 4.5 mg subcutaneously one time a week. - rosuvastatin (CRESTOR) 5 mg tablet Take 1 tablet by mouth once daily. - lisinopril (ZESTRIL) 10 mg tablet Take 1 tablet by mouth once daily. Take with 5 mg lisinopril once daily - lisinopril (ZESTRIL) 5 mg tablet Take 1 tablet by mouth once daily. Take with 10 mg lisinopril once daily - omeprazole (PRILOSEC) 40 mg capsule Take 1 capsule by mouth once daily. - triamcinolone (KENALOG) 0.025 % cream Apply 1 application to affected area two times a day. Up to 14 days per rash - gabapentin (NEURONTIN) 300 mg capsule Take 1 capsule by mouth two times a day. - DULoxetine (CYMBALTA) 60 mg capsule Take 1 capsule by mouth two times a day. (Dr. Dasilva) - levalbuterol tartrate HFA 45 mcg/actuation inhaler Inhale 1-2 Puffs as instructed every 6 hours as needed for wheezing/shortness of breath. - risperiDONE (RISPERDAL) 3 mg tablet Take 1 tablet by mouth twice daily. - cloNIDine HCl (CATAPRES) 0.1 mg tablet Takes 1 to 2 pills daily as needed. (per Mother) For anger - divalproex ER 500 mg 24 hr tablet Take 1,000 mg by mouth twice daily. Problem List As Of Date 05/09/2025 Noted Resolved Reactive depression [F32.9] 04/18/2006 Attention deficit disorder [F98.8] 04/18/2006 Moderate intellectual disability with intellige*10/12/2007 Mild intermittent asthma [J45.20] 03/05/2010 Tendonitis [M77.9] 09/27/2010 07/14/2012 Sprain of foot, unspecified site [S93.609A] 09/27/2010 07/14/2012 Congenital pes planus [Q66.50] 09/27/2010 Excessive anger [R45.4] 07/14/2012 Class 3 severe obesity with body mass index (BM*12/15/2014 Encopresis [R15.9] 12/15/2014 Enuresis [R32] 12/15/2014 Hereditary and idiopathic peripheral neuropathy*10/27/2016 Plantar fascial fibromatosis [M72.2] 06/30/2017 Abnormal gait [R26.9] 06/30/2017 DWIGHT (obstructive sleep apnea) [G47.33] 06/22/2018 Spinal stenosis of lumbar region with neurogeni*05/10/2019 S/P lumbar laminectomy [Z98.890] 09/2019 Primary hypertension [I10] 05/15/2020 GERD (gastroesophageal reflux disease) [K21.9] 02/05/2022 Prediabetes [R73.03] 02/05/2022 04/21/2025 Family history of colon cancer [Z80.0] 02/05/2022 Colon cancer screening [Z12.11] 02/05/2022 Diabetes mellitus type 2, controlled, without c*09/28/2023 Prescriptions ordered this encounter Disp Refills Start End CPAP/BIPAP/OTHER 1 ea* 0 05/12/2025 Class: Med Update Sig: Bi-level PAP at following settings: IPAP 17 cm water, EPAP 11 cm water Cosign accepted by [facility]OR [facility][[id number]] on 05/20/2025 10:54 AM Medications Discontinued During This Encounter Prescriptions - CPAP/BIPAP/OTHER (Discontinued) Type .CPAPSettings into a note to see current settings/supplies/DME information. Encounter Status:Closed by YESENIA JONES on 05/12/25 [facility] 05-05-2025 CNPN Telephone (INTMWS) NIKO BROOKE ([id number]) 1990 M GRD Date Time Provider Department 05/05/25 HECTOR CURRIE INTMWS During your visit today, we recorded the following information about you: Piotr Lindsey RN 05/05/2025 5:05 PM Signed Mother (Lanie) calls to report that [employer] received Sleep Study results but not order for C-Pap or OV notes. Faxed to [phone] per request. Piotr Lindsey RN Allergies As of Date: 05/05/2025 Noted Allergy Reaction SEASONAL ALLERGIES 07/06/2019 16 - Unknown Date Reviewed: 04/21/2025 Reviewed by: Paola Tellez LPN - Fully Assessed Reason for Visit: Orders [681] Prescriptions as of 05/05/2025 - dulaglutide (TRULICITY) 4.5 mg/0.5 mL pen injector Inject 4.5 mg subcutaneously one time a week. - rosuvastatin (CRESTOR) 5 mg tablet Take 1 tablet by mouth once daily. - CPAP/BIPAP/OTHER Type .CPAPSettings into a note to see current settings/supplies/DME information. - lisinopril (ZESTRIL) 10 mg tablet Take 1 tablet by mouth once daily. Take with 5 mg lisinopril once daily - lisinopril (ZESTRIL) 5 mg tablet Take 1 tablet by mouth once daily. Take with 10 mg lisinopril once daily - omeprazole (PRILOSEC) 40 mg capsule Take 1 capsule by mouth once daily. - triamcinolone (KENALOG) 0.025 % cream Apply 1 application to affected area two times a day. Up to 14 days per rash - gabapentin (NEURONTIN) 300 mg capsule Take 1 capsule by mouth two times a day. - DULoxetine (CYMBALTA) 60 mg capsule Take 1 capsule by mouth two times a day. (Dr. Dasilva) - levalbuterol tartrate HFA 45 mcg/actuation inhaler Inhale 1-2 Puffs as instructed every 6 hours as needed for wheezing/shortness of breath. - risperiDONE (RISPERDAL) 3 mg tablet Take 1 tablet by mouth twice daily. - cloNIDine HCl (CATAPRES) 0.1 mg tablet Takes 1 to 2 pills daily as needed. (per Mother) For anger - divalproex ER 500 mg 24 hr tablet Take 1,000 mg by mouth twice daily. 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 Mild intermittent asthma [J45.20] 03/05/2010 Tendonitis [M77.9] 09/27/2010 07/14/2012 Sprain of foot, unspecified site [S93.609A] 09/27/2010 07/14/2012 Congenital pes planus [Q66.50] 09/27/2010 Excessive anger [R45.4] 07/14/2012 Class 3 severe obesity with body mass index (BM*12/15/2014 Encopresis [R15.9] 12/15/2014 Enuresis [R32] 12/15/2014 Hereditary and idiopathic peripheral neuropathy*10/27/2016 Plantar fascial fibromatosis [M72.2] 06/30/2017 Abnormal gait [R26.9] 06/30/2017 DWIGHT (obstructive sleep apnea) [G47.33] 06/22/2018 Spinal stenosis of lumbar region with neurogeni*05/10/2019 S/P lumbar laminectomy [Z98.890] 09/2019 Primary hypertension [I10] 05/15/2020 GERD (gastroesophageal reflux disease) [K21.9] 02/05/2022 Prediabetes [R73.03] 02/05/2022 04/21/2025 Family history of colon cancer [Z80.0] 02/05/2022 Colon cancer screening [Z12.11] 02/05/2022 Diabetes mellitus type 2, controlled, without c*09/28/2023 Encounter Status:Closed by PIOTR LINDSEY on 05/05/25 [facility] CNOVon 04-21-2025 CNOV Office Visit (INTMWS ) DELLANIKO CARLSON ([id number]) 1990 M GRD Date Time Provider Department 04/21/25 3:40 PM SARAH HERRMANN INTMWS During your visit today, we recorded the following information about you: Pulse Respiration Blood pressure Weight 103/minute 20/minute 109/78 163.8 kg Sarah Herrmann APRN.HEALTH CARE SPECIALIST 04/21/2025 4:26 PM Signed Subjective Patient ID: Francis is a 34 year old male who presents for Established Patient (4 month F/U HTN and sugar levels). HPI The patient is a 34-year-old male with type 2 diabetes mellitus and obstructive sleep apnea, presenting for follow-up. Presents with his mother that helps with HPI. Type 2 Diabetes Mellitus: - Managed with Trulicity; Francis denies nausea, emesis, or abdominal pain. - Recent eye exam at [facility] on [address] showed minimal changes. - Last A1c was well-controlled. Obesity: - Francis's weight increased by 20 lbs since May of last year. - Francis attributes weight gain to emotional eating during a "slump." - Francis enjoys walking; has access to sidewalks and a mtz for walking. Hyperlipidemia: - Francis is not currently on medication for hyperlipidemia. Depression: - Francis is currently seeing a counselor. Obstructive Sleep Apnea: - Francis has tried to use CPAP machine in the past but has had trouble with consistency Of use. He would like to try this again. Last sleep study was completed May 2024 at [facility]. BiPAP was recommended. Orders were sent. DME is [employer]. Diabetes: - Managed with Trulicity injections, which Francis feels are effective in curbing symptoms, especially during stress. - No issues with current medication regimen. DIABETES MELLITUS: Without reported excessive thirst or increased frequency of urination, chest pain or dyspnea , numbness, tingling or pain in extremities, new or unusual visual symptoms, low sugar/hypoglycemic reactions, weight loss/gain, lightheadedness/dizzi ness, and bowel changes/loose stools. Patient's last HgA1C was Hemoglobin A1C (%) Date Value 12/20/2024 5.7 07/30/2024 5.3 03/19/2021 6.3 03/19/2021 6.3 ) ROS Constitutional: (+) weight gain Gastrointestinal: (-) nausea, (-) vomiting, (-) abdominal pain Objective BP 109/78 Pulse 103 Resp 20 Wt (!) 163.8 kg (361 lb 1.8 oz) SpO2 96% BMI 46.36 kg/m? Physical Exam Vitals and nursing note reviewed. Constitutional: Appearance: Normal appearance. HENT: Head: Normocephalic and atraumatic. Eyes: Conjunctiva/sclera: Conjunctivae normal. Cardiovascular: Rate and Rhythm: Normal rate and regular rhythm. Pulses: Dorsalis pedis pulses are 2+ on the right side and 2+ on the left side. Heart sounds: Normal heart sounds. Pulmonary: Effort: Pulmonary effort is normal. Breath sounds: Normal breath sounds. Abdominal: General: Bowel sounds are normal. Palpations: Abdomen is soft. Musculoskeletal: Right lower leg: No edema. Left lower leg: No edema. Feet: Right foot: Protective Sensation: 10 sites tested. 10 sites sensed. Skin integrity: Skin integrity normal. Toenail Condition: Right toenails are normal. Left foot: Protective Sensation: 10 sites tested. 10 sites sensed. Skin integrity: Skin integrity normal. Toenail Condition: Left toenails are normal. Skin: General: Skin is warm and dry. Neurological: General: No focal deficit present. Mental Status: He is alert and oriented to person, place, and time. Latest Ref Rng 12/20/2024 Protein, Total 6.3 - 8.0 g/dL 7.1 Albumin 3.9 - 4.9 g/dL 4.4 Calcium 8.5 - 10.2 mg/dL 9.4 Bilirubin, Total 0.2 - 1.3 mg/dL 0.3 Alkaline Phosphatase 38 - 113 U/L 66 AST 14 - 40 U/L 20 ALT 10 - 54 U/L 21 Glucose 74 - 99 mg/dL 128 (H) BUN 9 - 24 mg/dL 13 Creatinine 0.73 - 1.22 mg/dL 0.67 (L) Sodium 136 - 144 mmol/L 136 Potassium 3.7 - 5.1 mmol/L 4.5 Chloride 98 - 107 mmol/L 97 (L) CO2 22 - 30 mmol/L 27 Anion Gap 8 - 15 mmol/L 12 eGFR >=60 mL/min/1.73m? 127 WBC 3.70 - 11.00 k/uL 10.84 RBC 4.20 - 6.00 m/uL 4.91 Hemoglobin 13.0 - 17.0 g/dL 14.2 Hematocrit 39.0 - 51.0 % 42.6 MCV 80.0 - 100.0 fL 86.8 MCH 26.0 - 34.0 pg 28.9 MCHC 30.5 - 36.0 g/dL 33.3 RDW-CV 11.5 - 15.0 % 12.0 Platelet Count 150 - 400 k/uL 220 MPV 9.0 - 12.7 fL 11.2 Absolute nRBC <0.01 k/uL <0.01 Total Cholesterol, Nonfasting <200 mg/dL 187 Triglycerides, Nonfasting <150 mg/dL 340 (H) HDL Cholesterol, Nonfasting >39 mg/dL 29 (L) LDL Cholesterol Calculated, Nonfasting <100 mg/dL 100 (H) Non HDL Cholesterol, Nonfasting <130 mg/dL 158 (H) VLDL Cholesterol, Nonfasting <30 mg/dL 56 (H) Total Chol/HDL Ratio, Nonfasting <5.10 mg/dL 6.45 (H) LDL/HDL Ratio, Nonfasting <2.54 mg/dL 3.45 (H) Hemoglobin A1C 4.3 - 5.6 % 5.7 (H) Estimated Average Glucose mg/dL 117 1. Primary hypertension (I10) Controlled, continue current management unchanged. 2. Controlled type 2 diabetes me (more content not included)... Normal [facility] HbA1c (Bld)on 04-21-2025 Average glucose Estimated from glycated hemoglobin (Bld) [Mass/Vol] 117 mg/dL Normal [facility] Comment on above: Order Comment: Speci men Type: BLOOD SPECIMENOrdering Facility: [facility] Address: [address] [place] [address] Result Comment: eAG: (Estimated average glucose) is a calculated value from HgbA1c and is kiosk sales representative of the average blood glucose level in the last 2-3 month period. Performed By: #### 5 5454-3 ####[facility] LABCLIA [id number] [place] [address] [place] HbA1c (Bld) [Mass fraction] 5.7 % High 4.3-5.6 [facility] Comment on above: Order Comment: Speci men Type: BLOOD SPECIMENOrdering Facility: [facility] Address: [address] [place] [address] Result Comment: [place] Diabetes Association guidelines indicate that patients with HgbA1c in the range 5.7-6.4% are at increased risk for development of diabetes, and intervention by lifestyle modification may be beneficial. HgbA1c greater or equal to 6.5% is considered diagnostic of diabetes. Performed By: #### 5 5454-3 ####[facility] LABCLIA [id number] [place] [address] [place] CBC panel Auto (Bld)on 12-20 Erythrocyte distribution width (RBC) [Ratio] 12.0 % Normal 11.5-15.0 [facility] Comment on above: Order Comment: Speci men Type: BLOOD SPECIMENOrdering Facility: [facility] Address: [address] [place] [address] Performed By: #### 5 8410-2 ####[facility] LABCLIA [id number] [address] [place] Hematocrit (Bld) [Volume fraction] 42.6 % Normal 39.0-51.0 [facility] Comment on above: Order Comment: Speci men Type: BLOOD SPECIMENOrdering Facility: [facility] Address: [address] [place] [address] Performed By: #### 5 8410-2 ####[facility] LABIA [id number] [place] [address] [place] Hemoglobin (Bld) [Mass/Vol] 14.2 g/dL Normal 13.0-17.0 [facility] Comment on above: Order Comment: Speci men Type: BLOOD SPECIMENOrdering Facility: [facility] Address: [address] [place] [address] Performed By: #### 5 8410-2 ####[facility] LABIA [id number] [place] [address] [place] MCH (RBC) [Entitic mass] 28.9 pg Normal 26.0-34.0 [facility] Comment on above: Order Comment: Speci men Type: BLOOD SPECIMENOrdering Facility: [facility] Address: [address] [place] [address] Performed By: #### 5 8410-2 ####[facility] [id number] [place] [address] [place] MCHC (RBC) [Mass/Vol] 33.3 g/dL Normal 30.5-36.0 [facility] Comment on above: Order Comment: Speci men Type: BLOOD SPECIMENOrdering Facility: [facility] Address: [address] [place] [address] Performed By: #### 5 8410-2 ####[facility] LABIA [id number] [place] [address] [place] MCV (RBC) [Entitic vol] 86.8 fL Normal 80.0-100.0 [facility] Comment on above: Order Comment: Speci men Type: BLOOD SPECIMENOrdering Facility: [facility] Address: [address] [place] [address] Performed By: #### 5 8410-2 ####[facility] [id number] [place] [address] [place] Nucleated RBC (Bld) [#/Vol] 10*3/uL Normal <0.01 [facility] Comment on above: Order Comment: Speci men Type: BLOOD SPECIMENOrdering Facility: [facility] Address: [address] [place] [address] Performed By: #### 5 8410-2 ####[facility] LABCLIA [id number] [place] [address] [place] Platelet mean volume (Bld) [Entitic vol] 11.2 fL Normal 9.0-12.7 [facility] Comment on above: Order Comment: Speci men Type: BLOOD SPECIMENOrdering Facility: [facility] Address: [address] [place] [address] Performed By: #### 5 8410-2 ####[facility] LABCLIA [id number] [place] [address] [place] Platelets (Bld) [#/Vol] 220 10*3/uL Normal 150-400 [facility] Comment on above: Order Comment: Speci men Type: BLOOD SPECIMENOrdering Facility: [facility] Address: [address] [place] [address] Performed By: #### 5 8410-2 ####[facility] LABCLIA [id number] [place] [address] [place] RBC (Bld) [#/Vol] 4.91 10*6/uL Normal 4.20-6.00 [facility] Comment on above: Order Comment: Speci men Type: BLOOD SPECIMENOrdering Facility: [facility] Address: [address] [place] [address] Performed By: #### 5 8410-2 ####[facility] LABCLIA [id number] [place] [address] [place] WBC (Bld) [#/Vol] 10.84 10*3/uL Normal 3.70-11.00 [facility] Comment on above: Order Comment: Speci men Type: BLOOD SPECIMENOrdering Facility: [facility] Address: [address] [place] [address] Performed By: #### 5 8410-2 ####[facility] LABCLIA [id number] [place] [address] [place] CNOVon 12-20-2024 CNOV Office Visit (INTMWS ) NIKO BROOKE ([id number]) 1990 M GRD Date Time Provider Department 12/20/24 3:00 PM SARAH HERRMANN INTMWS During your visit today, we recorded the following information about you: Pulse Respiration Blood pressure Weight 106/minute 16/minute 118/78 162 kg Sarah Herrmann, SALES LEAD.HEALTH CARE SPECIALIST 12/20/2024 4:25 PM Signed Subjective Patient ID: Francis is a 34 year old male who presents for No chief complaint on file.. HPI Francis is a 34-year-old male with a history of diabetes and sleep apnea, presenting for a routine visit, accompanied by his mother who is providing additional history. Diabetes: - Managed with Trulicity injections, which Francis feels are effective in curbing symptoms, especially during stress. - No issues with current medication regimen. Sleep Apnea: - Well-managed with current treatment. - No reported breathing difficulties. Urinary Incontinence: - Increased urinary incontinence during the day, occurring 3-4 times daily. - Denies dysuria, abdominal or back pain, fever, or changes in urine flow. - Nocturia occasionally, but able to void without issues. - Denies any recent trauma or injury. Notes can tell when he needs to urinate but does not want to stop what he is doing to go to toilet. ROS Constitutional: (-) fever Respiratory: (-) shortness of breath Gastrointestinal: (-) abdominal pain Genitourinary: (+) urinary incontinence, (-) dysuria Musculoskeletal: (+) back pain Objective BP 118/78 Pulse 106 Resp 16 Wt (!) 162 kg (357 lb 2.3 oz) BMI 45.85 kg/m? Physical Exam Vitals and nursing note reviewed. Constitutional: Appearance: Normal appearance. HENT: Head: Normocephalic and atraumatic. Eyes: Conjunctiva/sclera: Conjunctivae normal. Cardiovascular: Rate and Rhythm: Normal rate and regular rhythm. Pulses: Dorsalis pedis pulses are 2+ on the right side and 2+ on the left side. Heart sounds: Normal heart sounds. Pulmonary: Effort: Pulmonary effort is normal. Breath sounds: Normal breath sounds. Abdominal: General: Bowel sounds are normal. Palpations: Abdomen is soft. Musculoskeletal: Right lower leg: No edema. Left lower leg: No edema. Feet: Right foot: Protective Sensation: 10 sites tested. 10 sites sensed. Skin integrity: Skin integrity normal. Toenail Condition: Right toenails are normal. Left foot: Protective Sensation: 10 sites tested. 10 sites sensed. Skin integrity: Skin integrity normal. Toenail Condition: Left toenails are normal. Skin: General: Skin is warm and dry. Neurological: General: No focal deficit present. Mental Status: He is alert and oriented to person, place, and time. 1. Class 3 severe obesity due to excess calories with body mass index (BMI) of 45.0 to 49.9 in adult, unspecified whether serious comorbidity present (E66.813) 2. Class 3 severe obesity without serious comorbidity with body mass index (BMI) of 45.0 to 49.9 in adult, unspecified obesity type (E66.813) - Continue current management. 3. Controlled type 2 diabetes mellitus without complication, without long-term current use of insulin (HCC) (E11.9) - Well-controlled on Trulicity injections; patient reports improvement in glycemic control. - Refill for Trulicity due in three months. - Ordered lab work to monitor glycemic control. 4. Primary hypertension (I10) - Continue current management. 5. Gastroesophageal reflux disease, unspecified whether esophagitis present (K21.9) - Continue current management. 6. Urinary incontinence, unspecified type (R32) - Advised implementing a timed voiding schedule with alarms set every 2-3 hours during the day. - No dysuria, abdominal or back pain, or fever reported; no signs of infection. - Monitor for improvement; if no significant change within 1-2 weeks, further evaluation will be considered. UA, culture, urology referral 7. Obstructive sleep apnea (G47.33) - Continue current CPAP therapy; patient reports effective management. Sarah Herrmann APRN.CNS Medical Decision Making: Problems: Moderate: 2+ stable chronic illnesses and 1+ chronic illnesses with change Risk: Moderate: Drug management Medical Decision Making Level: 4 - Moderate Allergies As of Date: 12/20/2024 Noted Allergy Reaction SEASONAL ALLERGIES 07/06/2019 16 - Unknown Date Reviewed: 12/20/2024 Reviewed by: Sarah Herrmann APRN.HEALTH CARE SPECIALIST - Fully Assessed Reason for Visit: Recheck [92] Primary Visit Diagnosis:Primary hypertension [I10] Other Visit Diagnoses:Class 3 severe obesity due to excess calories with body mass index (BMI) of 45.0 to 49.9 in adult, unspecified whether serious comorbidity present [E66.813, Z68.42] Controlled type 2 diabetes mellitus without complication, without long-term current use of insulin (HCC) [E11.9] Gastroesophageal reflux disease, unspecified whether esophagitis pre (more content not included)... Normal [facility] Comprehensive metabolic 2000 panelon 12-20-2024 Albumin [Mass/Vol] 4.4 g/dL Normal 3.9-4.9 [facility] Comment on above: Order Comment: Speci men Type: BLOOD SPECIMENOrdering Facility: [facility] Address: [address] [place] [address] Performed By: #### L IPNF, 12296-8 ####[facility] LABCLIA [id number] [place] [address] [place] ALP [Catalytic activity/Vol] 66 U/L Normal 38-113 [facility] Comment on above: Order Comment: Speci men Type: BLOOD SPECIMENOrdering Facility: [facility] Address: [address] [place] [address] Performed By: #### L IPNF, 77578-9 ####[facility] LABCLIA [id number] [address] [id number] [address] [place] ALT [Catalytic activity/Vol] 21 U/L Normal 10-54 [facility] Comment on above: Order Comment: Speci men Type: BLOOD SPECIMENOrdering Facility: [facility] Address: [address] [place] [id number] Performed By: #### L IPNF, ####[facility] LABCLIA [id number] [place] [address] [place] Anion gap [Moles/Vol] 12 mmol/L Normal 8-15 [facility] Comment on above: Order Comment: Speci men Type: BLOOD SPECIMENOrdering Facility: [facility] Address: [address] [place] [address] Performed By: #### L IPNF, ####[facility] LABCLIA [id number] [place] [address] [place] AST [Catalytic activity/Vol] 20 U/L Normal 14-40 [facility] Comment on above: Order Comment: Speci men Type: BLOOD SPECIMENOrdering Facility: [facility] Address: [address] [place] [address] Performed By: #### L IPNF, ####[facility] LABCLIA [id number] [place] [address] [place] Bilirubin [Mass/Vol] 0.3 mg/dL Normal 0.2-1.3 [facility] Comment on above: Order Comment: Speci men Type: BLOOD SPECIMENOrdering Facility: [facility] Address: [address] [place], [place] [address] Performed By: #### L IPNF, ####[facility] LABCLIA [id number] [place] [id number] [place] Calcium [Mass/Vol] 9.4 mg/dL Normal 8.5-10.2 [facility] Comment on above: Order Comment: Speci men Type: BLOOD SPECIMENOrdering Facility: [facility] Address: [address] [place] [address] Performed By: #### L IPNF, 42221-7 ####[facility] LABCLIA [id number] [place] [id number] [place] Chloride [Moles/Vol] 97 mmol/L Low 98-107 [facility] Comment on above: Order Comment: Speci men Type: BLOOD SPECIMENOrdering Facility: [facility] Address: [address] [place] [address] Performed By: #### L IPNF, 52932-4 ####[facility] LABCLIA [id number] [place] [address] [place] CO2 [Moles/Vol] 27 mmol/L Normal 22-30 [facility] Comment on above: Order Comment: Speci men Type: BLOOD SPECIMENOrdering Facility: [facility] Address: [address] [place] [address] Performed By: #### L IPNF, 51424-9 ####[facility] LABCLIA [id number] [place] [id number] [place] Creatinine [Mass/Vol] 0.67 mg/dL Low 0.73-1.22 [facility] Comment on above: Order Comment: Speci men Type: BLOOD SPECIMENOrdering Facility: [facility] Address: [address] [place] [address] Performed By: #### L IPNF, 24216-6 ####[facility] LABIA [id number] [place] [id number] [place] Creatinine and Glomerular filtration rate.predicted panel (S/P/Bld) 127 mL/min/1.73m??? Normal >=60 [facility] Comment on above: Order Comment: Speci men Type: BLOOD SPECIMENOrdering Facility: [facility] Address: [address] [place] [address] Result Comment: Anuradha mated Glomerular Filtration Rate (eGFR) is calculated using the 2020 CKD-EPI creatinine equation. This equation utilizes serum creatinine, sex, and age as parameters. The creatinine assay has traceable calibration to isotope dilution-mass spectrometry. Refer to KDIGO guidelines for clinical interpretation. In patients with unstable renal function, e.g. those with acute kidney injury, the eGFR may not accurately reflect actual GFR. Performed By: #### L RUBIN, ####[facility] LABIA [id number] [place] [address] [place] Glucose [Mass/Vol] 128 mg/dL High 74-99 [facility] Comment on above: Order Comment: Alo lemos Type: BLOOD SPECIMENOrdering Facility: [facility] Address: [address] [place] [address] Result Comment: The [place] Diabetes Association (ADA) provides guidance for cutoff values for fasting glucose and random glucose. The ADA defines fasting as no caloric intake for at least 8 hours. Fasting plasma glucose results between 100 to 125 mg/dL indicate increased risk for diabetes (prediabetes). Fasting plasma glucose results greater than or equal to 126 mg/dL meet the criteria for diagnosis of diabetes. In the absence of unequivocal hyperglycemia, results should be confirmed by repeat testing. In a patient with classic symptoms of hyperglycemia or hyperglycemic crisis, random plasma glucose results greater than or equal to 200 mg/dL meet the criteria for diagnosis of diabetes. Reference: Standards of Medical Care in Diabetes 2016, [place] Diabetes Association. Diabetes Care. 2016.39(Suppl 1). Performed By: #### L RUBIN, ####[facility] LABIA [id number] [place] [id number] [place] Potassium [Moles/Vol] 4.5 mmol/L Normal 3.7-5.1 [facility] Comment on above: Order Comment: Alo lemos Type: BLOOD SPECIMENOrdering Facility: [facility] Address: [address] [place] [address] Performed By: #### L IPBRITTANY, ####[facility] LABIA [id number] [place] [id number] [place] Protein [Mass/Vol] 7.1 g/dL Normal 6.3-8.0 [facility] Comment on above: Order Comment: Speci men Type: BLOOD SPECIMENOrdering Facility: [facility] Address: [address] [place] [address] Performed By: #### L IPNF, 46891-3 ####[facility] LABCLIA [id number] [place] [id number] [place] Sodium [Moles/Vol] 136 mmol/L Normal 136-144 [facility] Comment on above: Order Comment: Speci men Type: BLOOD SPECIMENOrdering Facility: [facility] Address: [address] [place] [address] Performed By: #### L IPNF, 44414-8 ####[facility] LABCLIA [id number] [place] [address] [place] Urea nitrogen [Mass/Vol] 13 mg/dL Normal 9-24 [facility] Comment on above: Order Comment: Speci men Type: BLOOD SPECIMENOrdering Facility: [facility] Address: [address] [place] [address] Performed By: #### L IPNF, 44226-0 ####[facility] LABCLIA [id number] [place] [address] [place] HbA1c (Bld)on 12-20-2024 Average glucose Estimated from glycated hemoglobin (Bld) [Mass/Vol] 117 mg/dL Normal [facility] Comment on above: Order Comment: Speci men Type: BLOOD SPECIMENOrdering Facility: [facility] Address: [address] [place] [address] Result Comment: eAG: (Estimated average glucose) is a calculated value from HgbA1c and is kiosk sales representative of the average blood glucose level in the last 2-3 month period. Performed By: #### 5 5454-3 ####[facility] LABCLIA [id number] [place] [address] [place] HbA1c (Bld) [Mass fraction] 5.7 % High 4.3-5.6 [facility] Comment on above: Order Comment: Alo canelo Type: BLOOD SPECIMENOrdering Facility: [facility] Address: [address] [place] [address] Result Comment: Mal[place] Diabetes Association guidelines indicate that patients with HgbA1c in the range 5.7-6.4% are at increased risk for development of diabetes, and intervention by lifestyle modification may be beneficial. HgbA1c greater or equal to 6.5% is considered diagnostic of diabetes. Performed By: #### 5 5454-3 ####[facility] LABCLIA [id number] [address], [facility] [place] LIPID PANEL, NONFASTINGon Cholesterol [Mass/Vol] 187 mg/dL Normal <200 [facility] Comment on above: Order Comment: Alo canelo Type: BLOOD SPECIMENOrdering Facility: [facility] Address: [address] [place] [address] Result Comment: <200 mg/dL, Desirable 200-239 mg/dL, Borderline high >239 mg/dL, High Performed By: #### L IPNF, 02339-2 ####[facility] LABCLIA [id number] [address], [facility] [place] HDL CHOLESTEROL, NF 29 mg/dL Low >39 [facility] Comment on above: Order Comment: Alo canelo Type: BLOOD SPECIMENOrdering Facility: [facility] Address: [address] [place] [address] Result Comment: 40-5 9 mg/dL, Acceptable >59 mg/dL, High: Negative risk factor for coronary heart disease <40 mg/dL, Low: Positive risk factor for coronary heart disease Performed By: #### L IPNF, 96810-8 ####[facility] LABCLIA [id number] [address], [facility] [place] LDL CHOLESTEROL CALCULATED, NF 100 mg/dL High <100 [facility] Comment on above: Order Comment: Alo canelo Type: BLOOD SPECIMENOrdering Facility: [facility] Address: [address] [place] [address] Result Comment: <100 mg/dL, Optimal 100-129 mg/dL, Near optimal/above optimal 130-159 mg/dL, Borderline high 160-189 mg/dL, High >189 mg/dL, Very high Secondary prevention optimal LDL Cholesterol levels are recommended to be <70 mg/dL LDL cholesterol is calculated using the Fraser-NIH equation. Performed By: #### L RUBIN, 67449-8 ####[facility] LABCLIA [id number] [address] [place] LDL/HDL RATIO, NF 3.45 mg/dL High <2.54 [facility] Comment on above: Order Comment: Alo lemos Type: BLOOD SPECIMENOrdering Facility: [facility] Address: [address] [place] [address] Result Comment: Refe rence: 1. National Cholesterol Education Program ATP III Guideline At-A-Glance Quick Desk Reference: National Heart, Lung, and Blood [place]. National Institutes of Health. 2001: NIH Publication No. 01-3305. 2. An International Atherosclerosis Society position paper: global recommendations for the management of dyslipidemia: executive summary, Atherosclerosis. 2014: 232(2):410-413. Performed By: #### L RUBIN, 49095-7 ####[facility] LABIA [id number] [address] [place] NON HDL CHOL, NF 158 mg/dL High <130 [facility] Comment on above: Order Comment: Alo lemos Type: BLOOD SPECIMENOrdering Facility: [facility] Address: [address] [place] [address] Result Comment: <130 mg/dL, Optimal 130-159 mg/dL, Near optimal/above optimal 160-189 mg/dL, Borderline high 190-219 mg/dL, High >219 mg/dL, Very high Secondary prevention optimal non HDL Cholesterol levels are recommended to be <100 mg/dL Performed By: #### L RUBIN, 19833-8 ####[facility] LABCLIA [id number] [place] [address] [place] T CHOL/HDL RATIO NF 6.45 mg/dL High <5.10 [facility] Comment on above: Order Comment: Speci men Type: BLOOD SPECIMENOrdering Facility: [facility] Address: [address] [place] [address] Performed By: #### L IPNF, 68588-3 ####[facility] LABCLIA [id number] [place] [address] [place] TRIGLYCERIDES, NF 340 mg/dL High <150 [facility] Comment on above: Order Comment: Speci men Type: BLOOD SPECIMENOrdering Facility: [facility] Address: [address] [place] [address] Result Comment: <150 mg/dL, Normal 150-199 mg/dL, Borderline high 200-499 mg/dL, High >499 mg/dL, Very high Performed By: #### L IPNF, 08901-2 ####[facility] LABCLIA [id number] [place] [id number] [place] VLDL CHOLESTEROL, NF 56 mg/dL High <30 [facility] Comment on above: Order Comment: Speci men Type: BLOOD SPECIMENOrdering Facility: [facility] Address: [address] [place] [address] Performed By: #### L IPNF, 23059-6 ####[facility] LABCLIA [id number] [place] [id number] [place] Lumbar Spine 2 or 3 Viewson 11-30-2024 Lumbar Spine 2 or [address] [facility] Imaging Services [address] [place], [place] [id number] Lumbar Spine 2 or 3 Views MR#: [id number] Acct: [id number] Name: NIKO BROOKE Rep #: [id number] : 1990 M 34 From: Nalini Norris MD PCP: Dr. Hector Currie MD Status: REG CLI Study: Lumbar Spine 2 or 3 Views Date of Exam: Exam# [id number] Ordering Dr: Rachid Mary MD PROCEDURE: LUMBAR SPINE 2 OR 3 VIEWS 11/30/2024 REASON FOR EXAM: PAIN TECHNIQUE: 2 view(s) of the lumbar spine COMPARISON: None available FINDINGS: Vertebrae: Vertebral body heights are well preserved. Discs: There is loss of intervertebral disc height at L5-S1 Alignment: Mild levocurvature of the lumbar spine. Other: RAD/Lumbar Spine 2 or 3 Views IMPRESSION: Degenerative changes throughout the lumbar spine. Mild levocurvature of the lumbar spine. Reading Location: [facility] CC: Dr. Rachid Mary MD; Dr. Hector Currie MD Landfill Attendant: [facility] (UCWSTR ) NIKO BROOKE ([id number]) 1990 M D Date Time Provider Department 10/10/24 11:15 AM BRANDEE MCMANUS [facility] During your visit today, we recorded the following information about you: Temperature Pulse Respiration Blood pressure 97.3 degrees 104/minute 20/minute 136/78 Weight 162.8 kg Brandee Mcmanus, SALES LEAD.RETAIL SALES MERCHANDISER 10/10/2024 11:32 AM Signed Subjective Nasal Congestion Associated symptoms include congestion, coughing and shortness of breath. Pertinent negatives include no chills, headaches or sore throat. Niko Brooke is a 34 year old male who presents with cough, fever, runny nose, loss of taste and smell. Symptom onset 2 days ago. He has had some sinus pressure and shortness of breath. He was exposed to a family member with influenza A. Review of Systems Constitutional: Negative for chills and fever. HENT: Positive for congestion. Negative for sore throat. Respiratory: Positive for cough and shortness of breath. Cardiovascular: Negative. Gastrointestinal: Negative for diarrhea, nausea and vomiting. Musculoskeletal: Negative for myalgias. Neurological: Negative for headaches. BP 136/78 Pulse 104 Temp 36.3 ?C (97.3 ?F) Resp 20 Wt (!) 162.8 kg (358 lb 14.5 oz) SpO2 95% BMI 46.08 kg/m? PAST MEDICAL HISTORY Diagnosis Date Asthma 03/05/2010 ATTN DEFICIT NONHYPERACT 04/18/2006 Congenital pes planus 09/27/2010 DEPRESSIVE DISORDER NEC 04/18/2006 Encopresis 12/15/2014 Enuresis 12/15/2014 Excessive anger 07/14/2012 followed by psychiatry Family history of colon cancer Maternal Grandmother was 33years old when diagnosed and from colon cancer (will need colonoscopy at 28years old for screeening) Mental retardation, moderate (I.Q. 35-49) 10/12/2007 Obesity 12/15/2014 S/P lumbar laminectomy 09/2019 Dr. Weinstein Spinal stenosis of lumbar region with neurogenic claudication 05/10/2019 PAST SURGICAL HISTORY Procedure Laterality Date CIRCUMCISION LAMINECTOMY,LUMBAR 09/2019 L3,4,5 Dr. Weinstein TONSILLECTOMY AND ADENOIDECTOMY ALLERGIES Seasonal Allergies MEDICATIONS lisinopril (ZESTRIL) 10 mg tablet Take 1 tablet by mouth once daily. Take with 5 mg lisinopril once daily lisinopril (ZESTRIL) 5 mg tablet Take 1 tablet by mouth once daily. Take with 10 mg lisinopril once daily omeprazole (PRILOSEC) 40 mg capsule Take 1 capsule by mouth once daily. dulaglutide (TRULICITY) 4.5 mg/0.5 mL pen injector Inject 4.5 mg subcutaneously one time a week. triamcinolone (KENALOG) 0.025 % cream Apply 1 application to affected area two times a day. Up to 14 days per rash gabapentin (NEURONTIN) 300 mg capsule Take 1 capsule by mouth two times a day. CPAP/BIPAP/OTHER Type .CPAPSettings into a note to see current settings/supplies/DME information. DULoxetine (CYMBALTA) 60 mg capsule Take 1 capsule by mouth two times a day. (Dr. Dasilva) levalbuterol tartrate HFA 45 mcg/actuation inhaler Inhale 1-2 Puffs as instructed every 6 hours as needed for wheezing/shortness of breath. risperiDONE (RISPERDAL) 3 mg tablet Take 1 tablet by mouth twice daily. cloNIDine HCl (CATAPRES) 0.1 mg tablet Takes 1 to 2 pills daily as needed. (per Mother) For anger divalproex ER 500 mg 24 hr tablet Take 1,000 mg by mouth twice daily. FAMILY HISTORY Problem Relation Age of Onset Colon Cancer Father 50's Diabetes Father Hypertension Father Cancer Father Colon Colon Polyps Mother large polyp other (Hypothyroidism [Other]) Mother Colon Polyps Brother Colon Cancer Maternal Grandmother 34 Cancer Maternal Grandmother from breast and uterine cancer Macular Degen Maternal Grandfather Diabetes Maternal Grandfather Colon Cancer Paternal Grandfather late 60's Cancer Paternal Grandfather from Colon Cancer Social History Tobacco Use Smoking status: Never Smokeless tobacco: Never Vaping Use Vaping status: Never Used Substance Use Topics Alcohol use: Never Drug use: Never Objective Physical Exam Vitals and nursing note reviewed. Constitutional: General: He is not in acute distress. Appearance: Normal appearance. He is not ill-appearing. HENT: Right Ear: Tympanic membrane, ear canal and external ear normal. Left Ear: Tympanic membrane, ear canal and external ear normal. Nose: Congestion and rhinorrhea present. Mouth/Throat: Mouth: Mucous membranes are moist. Pharynx: Oropharynx is clear. Uvula midline. No oropharyngeal exudate or posterior oropharyngeal erythema. Cardiovascular: Rate and Rhythm: Normal rate and regular rhythm. Heart sounds: Normal heart sounds. Pulmonary: Effort: Pulmonary effort is normal. No respiratory distress. Breath sounds: Normal breath sounds. No wheezing or rales. Musculoskeletal: Cervical back: Neck supple. Lymphadenopathy: Cervical: No cervical adenopathy. Skin: (more content not included)... Normal [facility] INFLUENZA A&B MOLECULAR (POC )on 10-10-2024 Flu A (POCT) Positive Abnormal Negative [facility] Comment on above: Location:[address], [place], [address] Interpretation and review of laboratory results Abnormal [facility] Procedural Control Valid [facility] Location:[facility], [address] [place] [address], [place], [address] [facility] POINT OF [facility] ALBUMIN/CREATININE RATIO, UR INEon 08-15-2024 Albumin DL <= 20 mg/L (U) [Mass/Vol] 32.3 mg/L Normal [facility] Comment on above: Order Comment: Speci men Type: URINE SPECIMENOrdering Facility: [facility] Address: [address] [place] [address] Performed By: #### U ACR ####[facility] LABCLIA [id number] [address] STATES [facility] Albumin/Creatinine (U) [Mass ratio] 23 mg/g Normal <30 [facility] Comment on above: Order Comment: Speci men Type: URINE SPECIMENOrdering Facility: [facility] Address: [address] [place] [address] Result Comment: Adul t Male and Female Nephrotic Criteria: <30 mg/g is considered normal to mildly increased 30-300 mg/g is considered moderately increased >300 mg/g is considered severely increased KDIGO. (2013). KDIGO 2012 Clinical Practice Guideline for the Evaluation and Management of Chronic Kidney Disease. Official Journal of the International Society of Nephrology, 3(1), 1-150. Performed By: #### U ACR ####[facility] LABIA [id number] [address] STATES OF [facility] Creatinine (U) [Mass/Vol] 140.6 mg/dL Normal 20.0-300.0 [facility] Comment on above: Order Comment: Speci men Type: URINE SPECIMENOrdering Facility: [facility] Address: [address] [place] [address] Performed By: #### U ACR ####[facility] LABIA [id number] [place] [id number] [facility] CNOVon 08-15-2024 CNOV Office Visit (INTMWS ) NIKO BROOKE ([id number]) 1990 M FNS Date Time Provider Department 08/15/24 8:20 AM HECTOR CURRIE INTMWS During your visit today, we recorded the following information about you: Temperature Pulse Respiration Blood pressure 97.5 degrees 98/minute 16/minute 118/70 Weight 162 kg Hector Currie MD 09/12/2024 6:14 PM Addendum This note was created using [employer]. Subjective Niko Brooke is a 34 year old male. No chief complaint on file. SUBJECTIVE: Niko Brooke is a 34 year old year old gentleman here today for 4 month follow up appointment for review of medical conditions. - CPAP: Uses every night AND getting benefit - is able to fall asleep and stay asleep and wakes up rested - HTN: Taking medications without SE, no symptoms of hypo- or hypertension - Needs Refill on Trulicity - Blood sugar doing well, watching his diet, well balanced meals - Asthma well controlled, has not needed inhaler recently, primarily uses it when sick Niko Brooke is a 34-year-old male with a history of DWIGHT, HTN, and GERD, presenting for follow-up. Niko reports consistent use of CPAP therapy, which has improved his sleep quality. He is currently taking antihypertensive medication and denies any side effects. Recent blood pressure readings have been below 140/90 mmHg, with previous readings ranging from 110-120 mmHg systolic. Niko is also on Trulicity for glycemic control and weight management. He missed his dose this week due to pharmacy supply issues but plans to switch pharmacies to avoid future disruptions. He reports dietary improvements, including increased vegetable intake and mindful eating habits. However, he notes increased snacking on peanut butter and jelly sandwiches since missing his Trulicity dose. He is also taking Cymbalta, gabapentin, lisinopril, and omeprazole, and is due for refills on lisinopril and omeprazole. He denies any issues with anxiety. He has not yet scheduled an eye exam for this year. PAST MEDICAL HISTORY Diagnosis Date Asthma 03/05/2010 ATTN DEFICIT NONHYPERACT 04/18/2006 Congenital pes planus 09/27/2010 DEPRESSIVE DISORDER NEC 04/18/2006 Encopresis 12/15/2014 Enuresis 12/15/2014 Excessive anger 07/14/2012 followed by psychiatry Family history of colon cancer Maternal Grandmother was 33years old when diagnosed and from colon cancer (will need colonoscopy at 28years old for screeening) Mental retardation, moderate (I.Q. 35-49) 10/12/2007 Obesity 12/15/2014 S/P lumbar laminectomy 09/2019 Dr. Weinstein Spinal stenosis of lumbar region with neurogenic claudication 05/10/2019 Current Outpatient Medications Medication Sig dulaglutide (TRULICITY) 4.5 mg/0.5 mL pen injector Inject 4.5 mg subcutaneously one time a week. triamcinolone (KENALOG) 0.025 % cream Apply 1 application to affected area two times a day. Up to 14 days per rash gabapentin (NEURONTIN) 300 mg capsule Take 1 capsule by mouth two times a day. CPAP/BIPAP/OTHER Type .CPAPSettings into a note to see current settings/supplies/DME information. DULoxetine (CYMBALTA) 60 mg capsule Take 1 capsule by mouth two times a day. (Dr. Dasilva) omeprazole (PRILOSEC) 40 mg capsule Take 1 capsule by mouth once daily. lisinopril (ZESTRIL) 5 mg tablet Take 1 tablet by mouth once daily. Take with 10 mg lisinopril once daily lisinopril (ZESTRIL) 10 mg tablet Take 1 tablet by mouth once daily. Take with 5 mg lisinopril once daily levalbuterol tartrate HFA 45 mcg/actuation inhaler Inhale 1-2 Puffs as instructed every 6 hours as needed for wheezing/shortness of breath. risperiDONE (RISPERDAL) 3 mg tablet Take 1 tablet by mouth twice daily. cloNIDine HCl (CATAPRES) 0.1 mg tablet Takes 1 to 2 pills daily as needed. (per Mother) For anger divalproex ER 500 mg 24 hr tablet Take 1,000 mg by mouth twice daily. No current facility-administered medications for this visit. Review of Systems All other systems reviewed and are negative. Objective BP 134/80 Pulse 98 Temp 36.4 ?C (97.5 ?F) Resp 16 Wt (!) 162 kg (357 lb 2.3 oz) SpO2 96% BMI 45.85 kg/m? Last 5 Encounter Wt Readings: Date: Wt: 08/15/2024 162 kg (357 lb 2.3 oz) 06/14/2024 155.4 kg (342 lb 9.5 oz) 05/09/2024 156.3 kg (344 lb 9.3 oz) 04/05/2024 161.5 kg (356 lb 0.7 oz) 12/01/2023 162.8 kg (359 lb) No waist measurement recorded Estimated body mass index is 45.85 kg/m? as calculated from the following: Height as of 02/05/22: 188 cm (6' 2"). Weight as of this encounter: 162 kg (357 lb 2.3 oz). Last 5 Encounter BP Readings: Date: BP: 08/15/2024 134/80 06/14/2024 124/74 05/09/2024 120/66 04/05/2024 112/78 12/01/2023 118/64 08/15/24 0826 08/15/24 0909 BP: 134/80 118/70 Pulse: 98 Resp: 16 Temp: 36.4 ?C (97.5 ?F) SpO2: 96% Weight: (!) 162 kg (357 lb 2.3 oz) Physical Exam Cons (more content not included)... Normal [facility] NIKO BROO[facility] ([id number]) 1990 M [facility] Date Time Provider Department 08/15/24 HECTOR CURRIE INTMWS During your visit today, we recorded the following information about you: Lianne Caldwell RN 08/15/2024 3:16 PM Signed Patient's mother Lanie, calling and states patient will be using [facility] now and requesting all of pt's medication be transferred there. Pended. No call back needed if agreeable to send. TYLER Galaviz Stephanie, RN 08/18/2024 10:06 AM Signed Patient's mother calls asking about the status of this request. Patient is needing medications to be sent to pharmacy. TYLER Babb Liza D, MD 08/18/2024 5:49 PM Signed The following approved medication requests have been transmitted electronically. Requested Prescriptions Signed Prescriptions Disp Refills lisinopril (ZESTRIL) 10 mg tablet 30 tablet 11 Sig: Take 1 tablet by mouth once daily. Take with 5 mg lisinopril once daily Authorizing Provider: HECTOR CURRIE lisinopril (ZESTRIL) 5 mg tablet 30 tablet 11 Sig: Take 1 tablet by mouth once daily. Take with 10 mg lisinopril once daily Authorizing Provider: HECTOR CURRIE omeprazole (PRILOSEC) 40 mg capsule 30 capsule 11 Sig: Take 1 capsule by mouth once daily. Authorizing Provider: HECTOR CURRIE dulaglutide (TRULICITY) 4.5 mg/0.5 mL pen injector 2 mL 2 Sig: Inject 4.5 mg subcutaneously one time a week. Authorizing Provider: HECTOR CURRIE triamcinolone (KENALOG) 0.025 % cream 30 g 3 Sig: Apply 1 application to affected area two times a day. Up to 14 days per rash Authorizing Provider: HECTOR CURRIE gabapentin (NEURONTIN) 300 mg capsule 60 capsule 11 Sig: Take 1 capsule by mouth two times a day. Authorizing Provider: HECTOR CURRIE MD Allergies As of Date: 08/15/2024 Noted Allergy Reaction SEASONAL ALLERGIES 07/06/2019 16 - Unknown Date Reviewed: 08/15/2024 Reviewed by: Mindy Palencia LPN - Fully Assessed Reason for Visit: Patient Request [1696] Visit Diagnoses:Primary hypertension [I10] Gastroesophageal reflux disease, unspecified whether esophagitis present [K21.9] Controlled type 2 diabetes mellitus without complication, without long-term current use of insulin (HCC) [E11.9] Class 3 severe obesity without serious comorbidity with body mass index (BMI) of 45.0 to 49.9 in adult, unspecified obesity type (HCC) [E66.813, E66.01, Z68.42] Rash [R21] Comment:Topical steroid still helps. Continue present management Spinal stenosis of lumbar region with neurogenic claudication [M48.062] Order(s):lisinopril (ZESTRIL) 10 mg tabletTake 1 tablet by mouth once daily. Take with 5 mg lisinopril once dailyDisp: 30 tabletRfl: 11 lisinopril (ZESTRIL) 5 mg tabletTake 1 tablet by mouth once daily. Take with 10 mg lisinopril once dailyDisp: 30 tabletRfl: 11 omeprazole (PRILOSEC) 40 mg capsuleTake 1 capsule by mouth once daily.Disp: 30 capsuleRfl: 11 dulaglutide (TRULICITY) 4.5 mg/0.5 mL pen injectorInject 4.5 mg subcutaneously one time a week.Disp: 2 mLRfl: 2 triamcinolone (KENALOG) 0.025 % creamApply 1 application to affected area two times a day. Up to 14 days per rashDisp: 30 gRfl: 3 gabapentin (NEURONTIN) 300 mg capsuleTake 1 capsule by mouth two times a day.Disp: 60 capsuleRfl: 11 Prescriptions as of 08/18/2024 - lisinopril (ZESTRIL) 10 mg tablet Take 1 tablet by mouth once daily. Take with 5 mg lisinopril once daily - lisinopril (ZESTRIL) 5 mg tablet Take 1 tablet by mouth once daily. Take with 10 mg lisinopril once daily - omeprazole (PRILOSEC) 40 mg capsule Take 1 capsule by mouth once daily. - dulaglutide (TRULICITY) 4.5 mg/0.5 mL pen injector Inject 4.5 mg subcutaneously one time a week. - triamcinolone (KENALOG) 0.025 % cream Apply 1 application to affected area two times a day. Up to 14 days per rash - gabapentin (NEURONTIN) 300 mg capsule Take 1 capsule by mouth two times a day. - CPAP/BIPAP/OTHER Type .CPAPSettings into a note to see current settings/supplies/DME information. - DULoxetine (CYMBALTA) 60 mg capsule Take 1 capsule by mouth two times a day. (Dr. Dasilva) - levalbuterol tartrate HFA 45 mcg/actuation inhaler Inhale 1-2 Puffs as instructed every 6 hours as needed for wheezing/shortness of breath. - risperiDONE (RISPERDAL) 3 mg tablet Take 1 tablet by mouth twice daily. - cloNIDine HCl (CATAPRES) 0.1 mg tablet Takes 1 to 2 pills daily as needed. (per Mother) For anger - divalproex ER 500 mg 24 hr tablet Take 1,000 mg by mouth twice daily. 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 Normal [facility] CBC panel Auto (Bld)on 07-30 Erythrocyte distribution width (RBC) [Ratio] 12.0 % Normal 11.5-15.0 [facility] Comment on above: Order Comment: Speci men Type: BLOOD SPECIMENOrdering Facility: [facility] Address: [address] [place] [address] Performed By: #### 5 8410-2 ####[facility] LABIA [id number] [place] [address] [place] Hematocrit (Bld) [Volume fraction] 44.2 % Normal 39.0-51.0 [facility] Comment on above: Order Comment: Speci men Type: BLOOD SPECIMENOrdering Facility: [facility] Address: [address] [place] [address] Performed By: #### 5 8410-2 ####[facility] LABIA [id number] [place] [address] [place] Hemoglobin (Bld) [Mass/Vol] 14.6 g/dL Normal 13.0-17.0 [facility] Comment on above: Order Comment: Speci men Type: BLOOD SPECIMENOrdering Facility: [facility] Address: [address] [place] [address] Performed By: #### 5 8410-2 ####[facility] LABCLIA [id number] [place] [address] [place] MCH (RBC) [Entitic mass] 29.2 pg Normal 26.0-34.0 [facility] Comment on above: Order Comment: Speci men Type: BLOOD SPECIMENOrdering Facility: [facility] Address: [address] [place] [address] Performed By: #### 5 8410-2 ####[facility] LABCLIA [id number] [place] [address] [place] MCHC (RBC) [Mass/Vol] 33.0 g/dL Normal 30.5-36.0 [facility] Comment on above: Order Comment: Speci men Type: BLOOD SPECIMENOrdering Facility: [facility] Address: [address] [place] [address] Performed By: #### 5 8410-2 ####[facility] LABCLIA [id number] [place] [address] [place] MCV (RBC) [Entitic vol] 88.4 fL Normal 80.0-100.0 [facility] Comment on above: Order Comment: Speci men Type: BLOOD SPECIMENOrdering Facility: [facility] Address: [address] [place] [address] Performed By: #### 5 8410-2 ####[facility] LABCLIA [id number] [place] [address] [place] Nucleated RBC (Bld) [#/Vol] 10*3/uL Normal <0.01 [facility] Comment on above: Order Comment: Speci men Type: BLOOD SPECIMENOrdering Facility: [facility] Address: [address] [place] [address] Performed By: #### 5 8410-2 ####[facility] LABCLIA [id number] [place] [address] [place] Platelet mean volume (Bld) [Entitic vol] 11.2 fL Normal 9.0-12.7 [facility] Comment on above: Order Comment: Speci men Type: BLOOD SPECIMENOrdering Facility: [facility] Address: [address] [place] [address] Performed By: #### 5 8410-2 ####[facility] LABIA [id number] [place] [address] [place] Platelets (Bld) [#/Vol] 198 10*3/uL Normal 150-400 [facility] Comment on above: Order Comment: Speci men Type: BLOOD SPECIMENOrdering Facility: [facility] Address: [address] [place] [address] Performed By: #### 5 8410-2 ####[facility] LABIA [id number] [place] [address] [place] RBC (Bld) [#/Vol] 5.00 10*6/uL Normal 4.20-6.00 [facility] Comment on above: Order Comment: Speci men Type: BLOOD SPECIMENOrdering Facility: [facility] Address: [address] [place] [address] Performed By: #### 5 8410-2 ####[facility] LABIA [id number] [place] [address] [place] WBC (Bld) [#/Vol] 8.29 10*3/uL Normal 3.70-11.00 [facility] Comment on above: Order Comment: Speci men Type: BLOOD SPECIMENOrdering Facility: [facility] Address: [address] [place] [address] Performed By: #### 5 8410-2 ####[facility] LABIA [id number] [place] [address] [place] Comprehensive metabolic 2000 panelon 07-30-2024 Albumin [Mass/Vol] 4.3 g/dL Normal 3.9-4.9 [facility] Comment on above: Order Comment: Speci men Type: BLOOD SPECIMENOrdering Facility: [facility] Address: [address] [place] [address] Performed By: #### 2 4323-8, 50708-4 ####[facility] LABCLIA [id number] [place] [address] [place] ALP [Catalytic activity/Vol] 53 U/L Normal 38-113 [facility] Comment on above: Order Comment: Speci men Type: BLOOD SPECIMENOrdering Facility: [facility] Address: [address] [place] [address] Performed By: #### 2 4323-8, 16898-7 ####[facility] LABCLIA [id number] [place] [address] [place] ALT [Catalytic activity/Vol] 17 U/L Normal 10-54 [facility] Comment on above: Order Comment: Speci men Type: BLOOD SPECIMENOrdering Facility: [facility] Address: [address] [place] [address] Performed By: #### 2 4323-8, 40644-4 ####[facility] LABCLIA [id number] [place] [address] [place] Anion gap [Moles/Vol] 13 mmol/L Normal 8-15 [facility] Comment on above: Order Comment: Speci men Type: BLOOD SPECIMENOrdering Facility: [facility] Address: [address] [place] [address] Performed By: #### 2 4323-8, 16429-8 ####[facility] LABCLIA [id number] [place] [address] [place] AST [Catalytic activity/Vol] 21 U/L Normal 14-40 [facility] Comment on above: Order Comment: Speci men Type: BLOOD SPECIMENOrdering Facility: [facility] Address: [address] [place] [id number] Performed By: #### 2 4323-8, 80871-9 ####[facility] LABCLIA [id number] [place] [address] [place] Bilirubin [Mass/Vol] 0.4 mg/dL Normal 0.2-1.3 [facility] Comment on above: Order Comment: Speci men Type: BLOOD SPECIMENOrdering Facility: [facility] Address: [address] [place] [address] Performed By: #### 2 4323-8, 28236-2 ####[facility] LABCLIA [id number] [place] [address] [place] Calcium [Mass/Vol] 9.3 mg/dL Normal 8.5-10.2 [facility] Comment on above: Order Comment: Speci men Type: BLOOD SPECIMENOrdering Facility: [facility] Address: [address] [place] [address] Performed By: #### 2 4323-8, 05968-6 ####[facility] LABCLIA [id number] [place] [address] [place] Chloride [Moles/Vol] 99 mmol/L Normal 98-107 [facility] Comment on above: Order Comment: Speci men Type: BLOOD SPECIMENOrdering Facility: [facility] Address: [address] [place] [address] Performed By: #### 2 4323-8, 25443-9 ####[facility] LABCLIA [id number] [place] [id number] [place] CO2 [Moles/Vol] 27 mmol/L Normal 22-30 [facility] Comment on above: Order Comment: Speci men Type: BLOOD SPECIMENOrdering Facility: [facility] Address: [address] [place], [place] [id number] Performed By: #### 2 4323-8, 29376-2 ####[facility] LABCLIA [id number] [place] [id number] [place] Creatinine [Mass/Vol] 0.59 mg/dL Low 0.73-1.22 [facility] Comment on above: Order Comment: Alo lemos Type: BLOOD SPECIMENOrdering Facility: [facility] Address: [address] [place] [address] Performed By: #### 2 4323-8, 16819-1 ####[facility] LABIA [id number] [place] [address] [place] [facility] [place] Creatinine and Glomerular filtration rate.predicted panel (S/P/Bld) 132 mL/min/1.73m??? Normal >=60 [facility] Comment on above: Order Comment: Alo lemos Type: BLOOD SPECIMENOrdering Facility: [facility] Address: [address] [place] [address] Result Comment: Anuradha mated Glomerular Filtration Rate (eGFR) is calculated using the 2020 CKD-EPI creatinine equation. This equation utilizes serum creatinine, sex, and age as parameters. The creatinine assay has traceable calibration to isotope dilution-mass spectrometry. Refer to KDIGO guidelines for clinical interpretation. In patients with unstable renal function, e.g. those with acute kidney injury, the eGFR may not accurately reflect actual GFR. Performed By: #### 2 4323-8, 39212-5 ####[facility] LABIA [id number] [place] [address] [place] Glucose [Mass/Vol] 94 mg/dL Normal 74-99 [facility] Comment on above: Order Comment: Alo men Type: BLOOD SPECIMENOrdering Facility: [facility] Address: [address] [place] [address] Result Comment: The [place] Diabetes Association (ADA) provides guidance for cutoff values for fasting glucose and random glucose. The ADA defines fasting as no caloric intake for at least 8 hours. Fasting plasma glucose results between 100 to 125 mg/dL indicate increased risk for diabetes (prediabetes). Fasting plasma glucose results greater than or equal to 126 mg/dL meet the criteria for diagnosis of diabetes. In the absence of unequivocal hyperglycemia, results should be confirmed by repeat testing. In a patient with classic symptoms of hyperglycemia or hyperglycemic crisis, random plasma glucose results greater than or equal to 200 mg/dL meet the criteria for diagnosis of diabetes. Reference: Standards of Medical Care in Diabetes 2016, [place] Diabetes Association. Diabetes Care. 2016.39(Suppl 1). Performed By: #### 2 4323-8, 43257-4 ####[facility] LABCLIA [id number] [place] [address] [place] Potassium [Moles/Vol] 5.0 mmol/L Normal 3.7-5.1 [facility] Comment on above: Order Comment: Speci men Type: BLOOD SPECIMENOrdering Facility: [facility] Address: [address] [place] [address] Performed By: #### 2 4323-8, 99935-6 ####[facility] LABCLIA [id number] [place] [address] [place] Protein [Mass/Vol] 6.6 g/dL Normal 6.3-8.0 [facility] Comment on above: Order Comment: Speci men Type: BLOOD SPECIMENOrdering Facility: [facility] Address: [address] [place] [address] Performed By: #### 2 4323-8, 46264-8 ####[facility] LABCLIA [id number] [place] [address] [place] Sodium [Moles/Vol] 139 mmol/L Normal 136-144 [facility] Comment on above: Order Comment: Speci men Type: BLOOD SPECIMENOrdering Facility: [facility] Address: [address] [place] [address] Performed By: #### 2 4323-8, 05512-9 ####[facility] LABCLIA [id number] [place] [id number] [place] Urea nitrogen [Mass/Vol] 9 mg/dL Normal 9-24 [facility] Comment on above: Order Comment: Speci men Type: BLOOD SPECIMENOrdering Facility: [facility] Address: [address] [place] [address] Performed By: #### 2 4323-8, 24959-5 ####[facility] LABCLIA [id number] [address] [place] HbA1c (Bld)on 07-30-2024 Average glucose Estimated from glycated hemoglobin (Bld) [Mass/Vol] 105 mg/dL Normal [facility] Comment on above: Order Comment: Alo lemos Type: BLOOD SPECIMENOrdering Facility: [facility] Address: [address] [place] [address] Result Comment: eAG: (Estimated average glucose) is a calculated value from HgbA1c and is kiosk sales representative of the average blood glucose level in the last 2-3 month period. Performed By: #### 5 5454-3 ####[facility] LABCLIA [id number] [address] STATES OF [facility] HbA1c (Bld) [Mass fraction] 5.3 % Normal 4.3-5.6 [facility] Comment on above: Order Comment: Alo canelo Type: BLOOD SPECIMENOrdering Facility: [facility] Address: [address] [place] [address] Result Comment: [place] Diabetes Association guidelines indicate that patients with HgbA1c in the range 5.7-6.4% are at increased risk for development of diabetes, and intervention by lifestyle modification may be beneficial. HgbA1c greater or equal to 6.5% is considered diagnostic of diabetes. Performed By: #### 5 5454-3 ####[facility] LABCLIA [id number] [place] [address] [place] [facility] [place] Lipid 1996 panelon 4 Cholesterol [Mass/Vol] 178 mg/dL Normal <200 [facility] Comment on above: Order Comment: Alo [facility] Type: BLOOD SPECIMENOrdering Facility: [facility] Address: [address] [place] [address] Result Comment: <200 mg/dL, Desirable 200-239 mg/dL, Borderline high >239 mg/dL, High Performed By: #### 2 4323-8, 30912-5 ####[facility] LABCLIA [id number] [address] [place] Cholesterol in HDL [Mass/Vol] 29 mg/dL Low >39 [facility] Comment on above: Order Comment: Giannai men Type: BLOOD SPECIMENOrdering Facility: [facility] Address: [address] [place] [address] Result Comment: 40-5 9 mg/dL, Acceptable >59 mg/dL, High: Negative risk factor for coronary heart disease <40 mg/dL, Low: Positive risk factor for coronary heart disease Performed By: #### 2 4323-8, 39147-3 ####[facility] LABCLIA [id number] [address] STATES [facility] Cholesterol in LDL [Mass/Vol] 111 mg/dL High <100 [facility] Comment on above: Order Comment: Alo lemos Type: BLOOD SPECIMENOrdering Facility: [facility] Address: [address] [place] [address] Result Comment: <100 mg/dL, Optimal 100-129 mg/dL, Near optimal/above optimal 130-159 mg/dL, Borderline high 160-189 mg/dL, High >189 mg/dL, Very high Secondary prevention optimal LDL Cholesterol levels are recommended to be < 70 mg/dL Performed By: #### 2 4323-8, 42749-5 ####[facility] LABCLIA [id number] [address] [place] Cholesterol in LDL/Cholesterol in HDL [Mass ratio] 3.83 {ratio} High <2.54 [facility] Comment on above: Order Comment: Alo men Type: BLOOD SPECIMENOrdering Facility: [facility] Address: [address] [place] [address] Result Comment: Refe rence: 1. National Cholesterol Education Program ATP III Guideline At-A-Glance Quick Desk Reference: National Heart, Lung, and Blood [place]. National Institutes of Health. 2001: NIH Publication No. 01-3305. 2. An International Atherosclerosis Society position paper: global recommendations for the management of dyslipidemia: executive summary, Atherosclerosis. 2014: 232(2):410-413. Performed By: #### 2 4323-8, 18603-3 ####[facility] LABCLIA [id number] [place] [address] [place] Cholesterol in VLDL [Mass/Vol] 38 mg/dL High <30 [facility] Comment on above: Order Comment: Giannai men Type: BLOOD SPECIMENOrdering Facility: [facility] Address: [address] [place] [address] Performed By: #### 2 4328, ####[facility] LABCLIA [id number] [place] [address] [place] Cholesterol non HDL [Mass/Vol] 149 mg/dL High <130 [facility] Comment on above: Order Comment: Alo lemos Type: BLOOD SPECIMENOrdering Facility: [facility] Address: [address] [place] [address] Result Comment: <130 mg/dL, Optimal 130-159 mg/dL, Near optimal/above optimal 160-189 mg/dL, Borderline high 190-219 mg/dL, High >219 mg/dL, Very high Secondary prevention optimal non HDL Cholesterol levels are recommended to be <100 mg/dL Performed By: #### 2 8, ####[facility] LABCLIA [id number] [place] [address] [place] Cholesterol.total/ Cholesterol in HDL [Mass ratio] 6.14 {ratio} High <5.10 [facility] Comment on above: Order Comment: Alo men Type: BLOOD SPECIMENOrdering Facility: [facility] Address: [address] [place] [address] Performed By: #### 2 4323-8, ####[facility] LABCLIA [id number] [facility] [address] [place] FASTING TIME 11 hrs Normal [facility] Comment on above: Order Comment: Speci men Type: BLOOD SPECIMENOrdering Facility: [facility] Address: [address] [place] [address] Performed By: #### 2 4323-8, 72152-6 ####[facility] LABCLIA [id number] [place] [address] [place] Triglyceride [Mass/Vol] 188 mg/dL High <150 [facility] Comment on above: Order Comment: Speci men Type: BLOOD SPECIMENOrdering Facility: [facility] Address: [address] [place] [address] Result Comment: <150 mg/dL, Normal 150-199 mg/dL, Borderline high 200-499 mg/dL, High >499 mg/dL, Very high Performed By: #### 2 4323-8, 53699-3 ####[facility] LABCLIA [id number] [address] [place] CNPNon 07-04-2024 CNPN Telephone (INTMWS) NIKO BROOKE ([id number]) 1990 M S Date Time Provider Department 07/04/24 LIUDMILA BREAUX INTMWS During your visit today, we recorded the following information about you: Pauline Hein LPN 07/04/2024 1:47 PM Signed Patient had sleep study completed 06/29/24. Results on Liudmila's desk for review. Fax order for CPAP to [facility]. Liudmila Breaux APRN.[employer] 07/04/2024 1:51 PM Signed New orders placed, please send updated orders and updated sleep study results. Thanks. Pauline Hein LPN 07/04/2024 2:08 PM Signed Orders faxed and mother Lanie, aware of same. Allergies As of Date: 07/04/2024 Noted Allergy Reaction SEASONAL ALLERGIES 07/06/2019 16 - Unknown Date Reviewed: 06/14/2024 Reviewed by: Liudmila Breaux APRN.[employer] - Fully Assessed Reason for Visit: Results - Sleep Study [3564] Primary Visit Diagnosis:DWIGHT (obstructive sleep apnea) [G47.33] Order(s):PAP THERAPY ORDER [[id number]] Order #: [id number]: 1 CPAP/BIPAP/OTHERType .CPAPSettings into a note to see current settings/supplies/DME information.Disp: 1 EachRfl: 0 Prescriptions as of 07/04/2024 - CPAP/BIPAP/OTHER Type .CPAPSettings into a note to see current settings/supplies/DME information. - triamcinolone (KENALOG) 0.025 % cream Apply 1 application to affected area two times a day. Up to 14 days per rash - dulaglutide (TRULICITY) 3 mg/0.5 mL pen injector Inject 3 mg subcutaneously one time a week. - DULoxetine (CYMBALTA) 60 mg capsule Take 1 capsule by mouth two times a day. (Dr. Dasilva) - dulaglutide (TRULICITY) 1.5 mg/0.5 mL pen injector Inject 1.5 mg subcutaneously one time a week. Fill this RX if the 3mg dose is not available. - omeprazole (PRILOSEC) 40 mg capsule Take 1 capsule by mouth once daily. - lisinopril (ZESTRIL) 5 mg tablet Take 1 tablet by mouth once daily. Take with 10 mg lisinopril once daily - lisinopril (ZESTRIL) 10 mg tablet Take 1 tablet by mouth once daily. Take with 5 mg lisinopril once daily - levalbuterol tartrate HFA 45 mcg/actuation inhaler Inhale 1-2 Puffs as instructed every 6 hours as needed for wheezing/shortness of breath. - gabapentin (NEURONTIN) 300 mg capsule Take 1 capsule by mouth two times a day. - risperiDONE (RISPERDAL) 3 mg tablet Take 1 tablet by mouth twice daily. - cloNIDine HCl (CATAPRES) 0.1 mg tablet Takes 1 to 2 pills daily as needed. (per Mother) For anger - divalproex ER 500 mg 24 hr tablet Take 1,000 mg by mouth twice daily. 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 Mild intermittent asthma [J45.20] 03/05/2010 Tendonitis [M77.9] 09/27/2010 07/14/2012 Sprain of foot, unspecified site [S93.609A] 09/27/2010 07/14/2012 Congenital pes planus [Q66.50] 09/27/2010 Excessive anger [R45.4] 07/14/2012 Class 3 severe obesity with body mass index (BM*12/15/2014 Encopresis [R15.9] 12/15/2014 Enuresis [R32] 12/15/2014 Hereditary and idiopathic peripheral neuropathy*10/27/2016 Plantar fascial fibromatosis [M72.2] 06/30/2017 Abnormal gait [R26.9] 06/30/2017 DWIGHT (obstructive sleep apnea) [G47.33] 06/22/2018 Spinal stenosis of lumbar region with neurogeni*05/10/2019 S/P lumbar laminectomy [Z98.890] 09/2019 Primary hypertension [I10] 05/15/2020 GERD (gastroesophageal reflux disease) [K21.9] 02/05/2022 Prediabetes [R73.03] 02/05/2022 Family history of colon cancer [Z80.0] 02/05/2022 Colon cancer screening [Z12.11] 02/05/2022 Diabetes mellitus type 2, controlled, without c*09/28/2023 Prescriptions ordered this encounter Disp Refills Start End CPAP/BIPAP/OTHER 1 Ea* 0 07/04/2024 11/19/2051 Class: In Office Sig: Type .CPAPSettings into a note to see current settings/supplies/DME information. Medications Discontinued During This Encounter Prescriptions - CPAP/BIPAP/OTHER (Discontinued) Type .CPAPSettings into a note to see current settings/supplies/DME information. Encounter Status:Closed by PAULINE HEIN on 11/11/24 [facility] Telephone (INTMWS) NIKO BROOKE ([id number]) 1990 M S Date Time Provider Department 06/17/24 [facility] INTMWS During your visit today, we recorded the following information about you: Pauline Hein LPN 06/17/2024 8:23 AM Signed Fax received from [employer] stating the order for the BIPAP has been declined. Mentioning that patient needs a new in lab sleep study and new initial consult notes due to being noncompliant with BIPAP earlier this year. Liudmila Breaux APRN.[facility] 06/17/2024 9:07 AM Signed Can we please check with patient and his mom to see if willing to do another study. Please let them know the note from [facility]. Thanks. Morelia Sheets MA 06/17/2024 10:35 AM Signed Left message for return call. Barbara Posada RN 06/20/2024 8:07 AM Signed Patient's mother calls back and notified of below. Mother voices understanding. Mother states that patient is willing to do another sleep study. Please place these orders. TYLER Babb Rosa, APRN.[facility] 06/20/2024 9:28 AM Signed Order placed, prior sleep study done at [facility], please clarify that they would like orders sent there for the repeat study and send both the sleep study and titration study orders to see if a split study can be done. Thanks Morelia Sheets MA 06/20/2024 10:34 AM Signed Left message for return call. Carol Simon LPN 06/20/2024 10:46 AM Signed Patient mother Lanie returned call and went over notes below from Liudmila breaux [employer]NA[employer] with understanding. Mother is asking to have orders faxed to [facility] Sleep Lab please. Pauline Hein LPN 06/20/2024 12:28 PM Signed Order has been faxed and mother aware of same. Allergies As of Date: 06/17/2024 Noted Allergy Reaction SEASONAL ALLERGIES 07/06/2019 16 - Unknown Date Reviewed: 06/14/2024 Reviewed by: Liudmila Breaux APRN.[employer] - Fully Assessed Reason for Visit: Electronic Communication [890] Primary Visit Diagnosis:DWIGHT (obstructive sleep apnea) [G47.33] Order(s):POLYSOMNOGRA M (PSG) [8014023] Order #: [id number] FUTURE PAP TITRATION PSG (CPAP, BIPAP, ASV) [9936215] Order #: [id number] FUTURE Prescriptions as of 06/20/2024 - CPAP/BIPAP/OTHER Type .CPAPSettings into a note to see current settings/supplies/DME information. - triamcinolone (KENALOG) 0.025 % cream Apply 1 application to affected area two times a day. Up to 14 days per rash - dulaglutide (TRULICITY) 3 mg/0.5 mL pen injector Inject 3 mg subcutaneously one time a week. - DULoxetine (CYMBALTA) 60 mg capsule Take 1 capsule by mouth two times a day. (Dr. Dasilva) - dulaglutide (TRULICITY) 1.5 mg/0.5 mL pen injector Inject 1.5 mg subcutaneously one time a week. Fill this RX if the 3mg dose is not available. - omeprazole (PRILOSEC) 40 mg capsule Take 1 capsule by mouth once daily. - lisinopril (ZESTRIL) 5 mg tablet Take 1 tablet by mouth once daily. Take with 10 mg lisinopril once daily - lisinopril (ZESTRIL) 10 mg tablet Take 1 tablet by mouth once daily. Take with 5 mg lisinopril once daily - levalbuterol tartrate HFA 45 mcg/actuation inhaler Inhale 1-2 Puffs as instructed every 6 hours as needed for wheezing/shortness of breath. - gabapentin (NEURONTIN) 300 mg capsule Take 1 capsule by mouth two times a day. - risperiDONE (RISPERDAL) 3 mg tablet Take 1 tablet by mouth twice daily. - cloNIDine HCl (CATAPRES) 0.1 mg tablet Takes 1 to 2 pills daily as needed. (per Mother) For anger - divalproex ER 500 mg 24 hr tablet Take 1,000 mg by mouth twice daily. 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 Mild intermittent asthma [J45.20] 03/05/2010 Tendonitis [M77.9] 09/27/2010 07/14/2012 Sprain of foot, unspecified site [S93.609A] 09/27/2010 07/14/2012 Congenital pes planus [Q66.50] 09/27/2010 Excessive anger [R45.4] 07/14/2012 Class 3 severe obesity with body mass index (BM*12/15/2014 Encopresis [R15.9] 12/15/2014 Enuresis [R32] 12/15/2014 Hereditary and idiopathic peripheral neuropathy*10/27/2016 Plantar fascial fibromatosis [M72.2] 06/30/2017 Abnormal gait [R26.9] 06/30/2017 DWIGHT (obstructive sleep apnea) [G47.33] 06/22/2018 Spinal stenosis of lumbar region with neurogeni*05/10/2019 S/P lumbar laminectomy [Z98.890] 09/2019 Primary hypertension [I10] 05/15/2020 GERD (gastroesophageal reflux disease) [K21.9] 02/05/2022 Prediabetes [R73.03] 02/05/2022 Family history of colon cancer [Z80.0] 02/05/2022 Colon cancer screening [Z12.11] 02/05/2022 Diabetes mellitus type 2, controlled, without c*09/28/2023 Encounter Status:Closed by PAULINE HEIN on 06/20/24 [facility] 06-14-2024 CNOV Office Visit (INTMWS ) NIKO BROOKE ([id number]) 1990 M FNS Date Time Provider Department 06/14/24 3:40 PM LIUDMILA BREAUX During your visit today, we recorded the following information about you: Pulse Respiration Blood pressure Weight 88/minute 18/minute 124/74 155.4 kg Liudmila Breaux APRN.[employer] 06/22/2024 12:13 PM Addendum SUBJECTIVE Niko Brooke is a 34 year old male here today for a check up on his medical problems. Chief Complaint Patient presents with: discuss getting back on BiPAP: Has not used it in 6 months or longer, no longer has the machine at home. HPI Niko Brooke is a 34 year old male. He presents today to discuss orders for a bipap. Accompanied by his mom. Notes prior orders for bipap but had compliance issues so machine was taken back by [facility]. Ready to use this more. Last sleep study was a titration study within the last year, recommended auto bipap with ipap max 10 and epap 9, ps of 4. His medications were reviewed today and his list is now up to date. Medications Current Outpatient Medications Medication Sig triamcinolone (KENALOG) 0.025 % cream Apply 1 application to affected area two times a day. Up to 14 days per rash dulaglutide (TRULICITY) 3 mg/0.5 mL pen injector Inject 3 mg subcutaneously one time a week. DULoxetine (CYMBALTA) 60 mg capsule Take 1 capsule by mouth two times a day. (Dr. Dasilva) omeprazole (PRILOSEC) 40 mg capsule Take 1 capsule by mouth once daily. lisinopril (ZESTRIL) 5 mg tablet Take 1 tablet by mouth once daily. Take with 10 mg lisinopril once daily lisinopril (ZESTRIL) 10 mg tablet Take 1 tablet by mouth once daily. Take with 5 mg lisinopril once daily levalbuterol tartrate HFA 45 mcg/actuation inhaler Inhale 1-2 Puffs as instructed every 6 hours as needed for wheezing/shortness of breath. gabapentin (NEURONTIN) 300 mg capsule Take 1 capsule by mouth two times a day. risperiDONE (RISPERDAL) 3 mg tablet Take 1 tablet by mouth twice daily. cloNIDine HCl (CATAPRES) 0.1 mg tablet Takes 1 to 2 pills daily as needed. (per Mother) For anger divalproex ER 500 mg 24 hr tablet Take 1,000 mg by mouth twice daily. CPAP/BIPAP/OTHER Type .CPAPSettings into a note to see current settings/supplies/DME information. dulaglutide (TRULICITY) 1.5 mg/0.5 mL pen injector Inject 1.5 mg subcutaneously one time a week. Fill this RX if the 3mg dose is not available. (Patient not taking: Reported on 06/14/2024) No current facility-administered medications for this visit. ALLERGIES Allergen Reactions Seasonal Allergies Unknown ACTIVE PROBLEM LIST Diabetes Mellitus Type 2, Controlled, Without Complications ([facility]) - 09/28/2023 Gerd (Gastroesophageal Reflux Disease) - 02/05/2022 Prediabetes - 02/05/2022 Family History of Colon Cancer - 02/05/2022 Colon Cancer Screening - 02/05/2022 Primary Hypertension - 05/15/2020 S/P Lumbar Laminectomy - 09/24/2019 Comment: Dr. Weinstein Spinal Stenosis of Lumbar Region With Neurogenic Claudication - 05/10/2019 Dwight (Obstructive Sleep Apnea) - 06/22/2018 Comment: DME company [employer] 08/31/2023 Aircurve 10 auto ( [id number]) Mask jannette II Plantar Fascial Fibromatosis - 06/30/2017 Abnormal Gait - 06/30/2017 Hereditary and Idiopathic Peripheral Neuropathy - 10/27/2016 Class 3 Severe Obesity With Body Mass Index (Bmi) of 45.0 to 49.9 in Adult ([facility]) - 12/15/2014 Encopresis - 12/15/2014 Enuresis - 12/15/2014 Excessive Anger - 07/14/2012 Congenital Pes Planus - 09/27/2010 Mild Intermittent Asthma - 03/05/2010 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 Reactive Depression - 04/18/2006 Attention Deficit Disorder - 04/18/2006 Social History Tobacco Use Smoking status: Never Smokeless tobacco: Never Vaping Use Vaping status: Never Used Substance Use Topics Alcohol use: Never Drug use: Never Review of Systems Respiratory: Negative. Cardiovascular: Negative. OBJECTIVE BP 124/74 Pulse 88 Resp 18 Wt 342 lb 9.5 oz (155.4kg) Physical Exam Vitals and nursing note reviewed. Constitutional: General: He is awake. He is not in acute distress. Appearance: Normal appearance. He is well-developed and well-groomed. He is not ill-appearing, toxic-appearing or diaphoretic. HENT: Head: Normocephalic. Right Ear: External ear normal. Left Ear: External ear normal. Nose: Nose normal. Eyes: General: Vision grossly intact. Conjunctiva/sclera: Conjunctivae normal. Pupils: Pupils are equal, round, and reactive to light. Neck: Vascular: No JVD. Trachea: Trachea normal. Cardiovascular: Rate and Rhythm: Normal rate and regular rhythm. Pulses: Normal pulses. Heart sounds: Normal heart sounds. No murmur heard. Pulmonary: Effort: Pulmonary effort is normal. No a (more content not included)... Normal [facility] STREP A MOLECULAR (POC)on Procedural Control Valid [facility] Strep A (POCT) Negative Negative [facility] COVID & INFLUENZA A/B & RSV NAAT, ROUTINEon 11-06-2023 FLUAV RNA EVELIN+probe Ql (Unsp spec) Not detected Not Detected [facility] FLUBV RNA EVELIN+probe Ql (Unsp spec) Not detected Not Detected [facility] RSV A RNA EVELIN+probe Ql (Unsp spec) Detected Abnormal Not Detected [facility] SARS-CoV-2 (COVID-19) RNA EVELIN+probe Ql (Resp) Not detected See comment [facility] XR Chest PA and Lateralon IMPRESSION: Prominence of the pulmonary markings in the left lower lung. Landfill Attendant: PSCB Transcribe Date/Time: Nov 06 2023 10:41A Dictated by : ASHWIN SAMANIEGO MD This examination was interpreted and the report reviewed and electronically signed by: ASHWIN SAMANIEGO MD on Nov 06 2023 10:42AM [facility] DIVISION OF RADIOLOGY * * *Final Report* * * DATE OF EXAM: Nov 06 2023 10:36AM WOX [id number] - XR CHEST 2V FRONTAL/LAT / PROCEDURE REASON: multiple diagnoses * * * * Physician Interpretation * * * * EXAMINATION: CHEST RADIOGRAPH (2 VIEW FRONTAL & LATERAL) CLINICAL HISTORY: URI, acute Acute cough MQ: XC2_6 EXAM DATE/TIME: 11/06/2023 10:36 AM COMPARISON: Chest x-ray on 04/23/2022 RESULT: Lines, tubes, and devices: None. Lungs and pleura: There is prominence of the pulmonary markings in the left lower lung. No definite consolidation. No lung mass. No pleural effusion. No pneumothorax. Cardiomediastinal silhouette: Normal cardiomediastinal silhouette. Bones and soft tissues: Unremarkable. [facility] * * *Final Report* * * DATE OF EXAM: Nov 06 2023 10:36AM WOX [id number] - XR CHEST 2V FRONTAL/LAT / PROCEDURE REASON: multiple diagnoses * * * * Physician Interpretation * * * * EXAMINATION: CHEST RADIOGRAPH (2 VIEW FRONTAL & LATERAL) CLINICAL HISTORY: URI, acute Acute cough MQ: XC2_6 EXAM DATE/TIME: 11/06/2023 10:36 AM COMPARISON: Chest x-ray on 04/23/2022 RESULT: Lines, tubes, and devices: None. Lungs and pleura: There is prominence of the pulmonary markings in the left lower lung. No definite consolidation. No lung mass. No pleural effusion. No pneumothorax. Cardiomediastinal silhouette: Normal cardiomediastinal silhouette. Bones and soft tissues: Unremarkable. IMPRESSION IMPRESSION: Prominence of the pulmonary markings in the left lower lung. Landfill Attendant: SHANNAN Transcribe Date/Time: Nov 06 2023 10:41A Dictated by : ASHWIN SAMANIEGO MD This examination was interpreted and the report reviewed and electronically signed by: ASHWIN SAMANIEGO MD on Nov 06 2023 10:42AM EST [facility] Radiology Study observation (narrative) [facility] XR Chest PA and LateralOrder ed By: Ccf Provider on 11-06-[address] [facility] No Panel Informationon 02-13 Radiology Study observation (narrative) [facility] XR Ankle - left AP and Later al and obliqueon 02-13-2023 IMPRESSION: No acute radiographic abnormalities seen in the left ankle. Landfill Attendant: SHANNAN Transcribe Date/Time: Feb 13 2023 5:07P Dictated by : ASHWIN SAMANIEGO MD This examination was interpreted and the report reviewed and electronically signed by: ASHWIN SAMANIEGO MD on Feb 13 2023 5:08PM [facility] DIVISION OF RADIOLOGY * * *Final Report* * * DATE OF EXAM: Feb 13 2023 5:02PM WOX [id number] - XR ANKLE 3V AP/LAT/OBL LT / PROCEDURE REASON: Acute left ankle pain * * * * Physician Interpretation * * * * EXAM TITLE: XR ANKLE 3V AP/LAT/OBL LT EXAM DATE/TIME: 02/13/2023 5:02 PM COMPARISON: None. CLINICAL INDICATION/HISTORY: Ankle pain. TECHNIQUE: AP, mortise and lateral views of the left ankle are presented. FINDINGS: No acute fractures or subluxations are noted. Small accessory bones versus soft tissue calcifications along the medial malleolus. The mortise joint spaces are well preserved. There is no evidence of joint effusion. The mineralization of the bones is normal. There is no significant soft tissue swelling. DIVISION OF RADIOLOGY Provider, [facility] - 02/13/2023 * * *Final Report* * * DATE OF EXAM: Feb 13 2023 5:02PM WOX 5298 - XR ANKLE 3V AP/LAT/OBL LT / PROCEDURE REASON: Acute left ankle pain * * * * Physician Interpretation * * * * EXAM TITLE: XR ANKLE 3V AP/LAT/OBL LT EXAM DATE/TIME: 02/13/2023 5:02 PM COMPARISON: None. CLINICAL INDICATION/HISTORY: Ankle pain. TECHNIQUE: AP, mortise and lateral views of the left ankle are presented. FINDINGS: No acute fractures or subluxations are noted. Small accessory bones versus soft tissue calcifications along the medial malleolus. The mortise joint spaces are well preserved. There is no evidence of joint effusion. The mineralization of the bones is normal. There is no significant soft tissue swelling. IMPRESSION IMPRESSION: No acute radiographic abnormalities seen in the left ankle. Landfill Attendant: PSCB Transcribe Date/Time: Feb 13 2023 5:07P Dictated by : ASHWIN SAMANIEGO MD This examination was interpreted and the report reviewed and electronically signed by: ASHWIN SAMANIEGO MD on Feb 13 2023 5:08PM [facility] XR Foot - left AP and Latera l and obliqueon 02-13-2023 IMPRESSION: Pes planus. Landfill Attendant: SHANNAN Transcribe Date/Time: Feb 13 2023 5:22P Dictated by : ASHWIN SAMANIEGO MD This examination was interpreted and the report reviewed and electronically signed by: ASHWIN SAMANIEGO MD on Feb 13 2023 5:23PM [facility] DIVISION OF RADIOLOGY * * *Final Report* * * DATE OF EXAM: Feb 13 2023 5:02PM WOX [id number] - XR FOOT 3V AP/LAT/OBL LT / PROCEDURE REASON: Foot pain, left * * * * Physician Interpretation * * * * EXAM TITLE: XR FOOT 3V AP/LAT/OBL LT EXAM DATE/TIME: 02/13/2023 5:02 PM COMPARISON: X-ray foot on 12/17/2022 CLINICAL INDICATION/HISTORY: Foot pain TECHNIQUE: AP, lateral and oblique views of the left foot are presented. FINDINGS: No acute fractures or subluxations are noted. Pes planus is noted. The joint spaces are well preserved. The mineralization of the bones is normal. There is no significant soft tissue swelling. DIVISION OF RADIOLOGY Provider, [facility] - 02/13/2023 * * *Final Report* * * DATE OF EXAM: Feb 13 2023 5:02PM WOX [id number] - XR FOOT 3V AP/LAT/OBL LT / PROCEDURE REASON: Foot pain, left * * * * Physician Interpretation * * * * EXAM TITLE: XR FOOT 3V AP/LAT/OBL LT EXAM DATE/TIME: 02/13/2023 5:02 PM COMPARISON: X-ray foot on 12/17/2022 CLINICAL INDICATION/HISTORY: Foot pain TECHNIQUE: AP, lateral and oblique views of the left foot are presented. FINDINGS: No acute fractures or subluxations are noted. Pes planus is noted. The joint spaces are well preserved. The mineralization of the bones is normal. There is no significant soft tissue swelling. IMPRESSION IMPRESSION: Pes planus. Landfill Attendant: SHANNAN Transcribe Date/Time: Feb 13 2023 5:22P Dictated by : ASHWIN SAMANIEGO MD This examination was interpreted and the report reviewed and electronically signed by: ASHWIN SAMANIEGO MD on Feb 13 2023 5:23PM [facility] XR Foot - left AP and Latera l and obliqueOrdered By: Ccf Provider on 02-13-[address] [facility] XR FOOT GENERAL 3V AP/LAT/OB L LEFTon 12-17-[address] [facility] XR Foot - left AP and Latera l and obliqueon 12-17-2022 IMPRESSION: 1 x 3 mm radiopaque foreign body along the lateral aspect of the foot. This could be within the peripheral margin of the subcutaneous fat, dermis or on the skin. Landfill Attendant: PSCB Transcribe Date/Time: Dec 17 2022 5:43P Dictated by : ZECHARIAH MAGAÑA MD This examination was interpreted and the report reviewed and electronically signed by: ZECHARIAH MAGAÑA MD on Dec 17 2022 5:48PM [facility] DIVISION OF RADIOLOGY * * *Final Report* * * DATE OF EXAM: Dec 17 2022 5:16PM WOX [id number] - XR FOOT 3V AP/LAT/OBL LT / PROCEDURE REASON: Open wound of left foot excluding toes without complication, initial encounter * * * * Physician Interpretation * * * * Left foot HISTORY: 32 years old Clinical information: Open wound of left foot excluding toes without complication, initial encounter Open wound on lateral edge of left foot for a couple weeks, possible infection, concerns for foreign body. Pt unsure of how injury occurred. TECHNIQUE: Images: XR FOOT 3V AP/LAT/OBL LT Comparison: None. RESULT: Findings: There is a radiopaque density 1-3 mm in diameter near the peripheral margin of the subcutaneous fat at level of the base of the fifth metatarsal. No fracture or dislocation is evident. DIVISION OF RADIOLOGY Provider, [facility] - 12/17/2022 * * *Final Report* * * DATE OF EXAM: Dec 17 2022 5:16PM WOX [id number] - XR FOOT 3V AP/LAT/OBL LT / PROCEDURE REASON: Open wound of left foot excluding toes without complication, initial encounter * * * * Physician Interpretation * * * * Left foot HISTORY: 32 years old Clinical information: Open wound of left foot excluding toes without complication, initial encounter Open wound on lateral edge of left foot for a couple weeks, possible infection, concerns for foreign body. Pt unsure of how injury occurred. TECHNIQUE: Images: XR FOOT 3V AP/LAT/OBL LT Comparison: None. RESULT: Findings: There is a radiopaque density 1-3 mm in diameter near the peripheral margin of the subcutaneous fat at level of the base of the fifth metatarsal. No fracture or dislocation is evident. IMPRESSION IMPRESSION: 1 x 3 mm radiopaque foreign body along the lateral aspect of the foot. This could be within the peripheral margin of the subcutaneous fat, dermis or on the skin. Landfill Attendant: PSCB Transcribe Date/Time: Dec 17 2022 5:43P Dictated by : ZECHARIAH MAGAÑA MD This examination was interpreted and the report reviewed and electronically signed by: ZECHARIAH MAGAÑA MD on Dec 17 2022 5:48PM EST [facility] Radiology Study observation (narrative) [facility] XR Foot - left AP and Latera l and obliqueOrdered By: Ccf Provider on 12-17-[address] [facility] Comprehensive metabolic 2000 panelon 11-08-2022 Albumin [Mass/Vol] 4.3 g/dL 3.9 - 4.9 g/dL [facility] ALP [Catalytic activity/Vol] 64 U/L 38 - 113 U/L [facility] ALT [Catalytic activity/Vol] 47 U/L 10 - 54 U/L [facility] Anion gap [Moles/Vol] 10 mmol/L 9 - 18 mmol/L [facility] AST [Catalytic activity/Vol] 38 U/L 14 - 40 U/L [facility] Bilirubin [Mass/Vol] 0.3 mg/dL 0.2 - 1.3 mg/dL [facility] Calcium [Mass/Vol] 9.2 mg/dL 8.5 - 10. 2 mg/dL [facility] Chloride [Moles/Vol] 102 mmol/L 97 - 105 mmol/L [facility] CO2 [Moles/Vol] 27 mmol/L 22 - 30 mmol/L [facility] Creatinine [Mass/Vol] 0.59 mg/dL Low 0.73 - 1.22 mg/dL [facility] Estimated Glomerular Filtration Rate 134 mL/min/1.73m >=60 mL/min/1.73m [facility] Glucose [Mass/Vol] 113 mg/dL High 74 - 99 mg/dL [facility] Potassium [Moles/Vol] 4.7 mmol/L 3.7 - 5.1 mmol/L [facility] Protein [Mass/Vol] 6.8 g/dL 6.3 - 8.0 g/dL [facility] Sodium [Moles/Vol] 139 mmol/L 136 - 144 mmol/L [facility] Urea nitrogen [Mass/Vol] 10 mg/dL 9 - 24 mg/dL [facility] HbA1c (Bld)on 11-08-2022 Average glucose Estimated from glycated hemoglobin (Bld) [Mass/Vol] 126 mg/dL [facility] HbA1c (Bld) [Mass fraction] 6.0 % High 4.3 - 5.6 % [facility] Lipid 1996 panelon Cholesterol [Mass/Vol] 193 mg/dL <200 mg/dL [facility] Cholesterol in HDL [Mass/Vol] 26 mg/dL Low >39 mg/dL [facility] Cholesterol in LDL [Mass/Vol] 133 mg/dL High <100 mg/dL [facility] Cholesterol in LDL/Cholesterol in HDL [Mass ratio] 5.12 {ratio} High <2.[address] [facility] Cholesterol in VLDL [Mass/Vol] 34 mg/dL High <30 mg/dL [facility] Cholesterol non HDL [Mass/Vol] 167 mg/dL High <130 mg/dL [facility] Cholesterol.total/ Cholesterol in HDL [Mass ratio] 7.42 {ratio} High <5.[address] [facility] Fasting Time [address] [facility] Triglyceride [Mass/Vol] 168 mg/dL High <150 mg/dL [facility] XR FOOT GENERAL 3V AP/LAT/OB L RIGHTon 05-01-[address] [facility] XR Foot - right AP and Later al and obliqueon 05-01-2022 IMPRESSION: No acute radiographic abnormalities seen in the right foot. Landfill Attendant: PSCB Transcribe Date/Time: May 01 2022 5:00P Dictated by : ASHWIN SAMANIEGO MD This examination was interpreted and the report reviewed and electronically signed by: ASHWIN SAMANIEGO MD on May 01 2022 5:01PM [facility] DIVISION OF RADIOLOGY * * *Final Report* * * DATE OF EXAM: May 01 2022 4:55PM WOX [id number] - XR FOOT 3V AP/LAT/OBL RT / PROCEDURE REASON: Foot pain, right * * * * Physician Interpretation * * * * EXAM TITLE: XR FOOT 3V AP/LAT/OBL RT EXAM DATE/TIME: 05/01/2022 4:55 PM COMPARISON: None CLINICAL INDICATION/HISTORY: Injury TECHNIQUE: AP, lateral and oblique views of the right foot are presented. FINDINGS: No acute fractures or subluxations are noted. No bony erosions are seen. The joint spaces are well preserved. The mineralization of the bones is normal. There is no significant soft tissue swelling. [facility]/01/[facility]22 * * *Final Report* * * DATE OF EXAM: May 01 2022 4:55PM WOX 5337 - XR FOOT 3V AP/LAT/OBL RT / PROCEDURE REASON: Foot pain, right * * * * Physician Interpretation * * * * EXAM TITLE: XR FOOT 3V AP/LAT/OBL RT EXAM DATE/TIME: 05/01/2022 4:55 PM COMPARISON: None CLINICAL INDICATION/HISTORY: Injury TECHNIQUE: AP, lateral and oblique views of the right foot are presented. FINDINGS: No acute fractures or subluxations are noted. No bony erosions are seen. The joint spaces are well preserved. The mineralization of the bones is normal. There is no significant soft tissue swelling. IMPRESSION IMPRESSION: No acute radiographic abnormalities seen in the right foot. Landfill Attendant: SHANNAN Transcribe Date/Time: May 01 2022 5:00P Dictated by : ASHWIN SAMANIEGO MD This examination was interpreted and the report reviewed and electronically signed by: ASHWIN SAMANIEGO MD on May 01 2022 5:01PM EST [facility] Radiology Study observation (narrative) [facility] XR Foot - right AP and Later al and obliqueOrdered By: [facility] Provider on 05-01-[address] [facility] No Panel Informationon 04-23 D-Dimer Quantitative (PE/DVT) 0.31 FEU/ug/m 0.27-0.49 [facility] Work Phone: Comment on above: NORMAL D-Dimer level (<0.50) indicates no DVT or PE. XR Chest PA and Lateralon IMPRESSION: No acute radiographic abnormality. Landfill Attendant: SHANNAN Transcribe Date/Time: Apr 23 2022 9:59A Dictated by : ASHWIN SAMANIEGO MD This examination was interpreted and the report reviewed and electronically signed by: ASHWIN SAMANIEGO MD on Apr 23 2022 9:59AM EST DIVISION OF RADIOLOGY * * *Final Report* * * DATE OF EXAM: Apr 23 2022 9:57AM WOX 5291 - XR CHEST 2V FRONTAL/LAT / PROCEDURE REASON: SOB (shortness of breath) on exertion * * * * Physician Interpretation * * * * EXAMINATION: CHEST RADIOGRAPH (2 VIEW FRONTAL & LATERAL) CLINICAL HISTORY: SOB (shortness of breath) on exertion MQ: XC2_6 EXAM DATE/TIME: 04/23/2022 9:57 AM COMPARISON: No relevant prior studies available. RESULT: Lines, tubes, and devices: None. Lungs and pleura: No consolidation. No lung mass. No pleural effusion. No pneumothorax. Cardiomediastinal silhouette: Normal cardiomediastinal silhouette. Bones and soft tissues: Unremarkable. DIVISION OF RADIOLOGY Provider, [facility] - 04/23/2022 * * *Final Report* * * DATE OF EXAM: Apr 23 2022 9:57AM WOX 5291 - XR CHEST 2V FRONTAL/LAT / PROCEDURE REASON: SOB (shortness of breath) on exertion * * * * Physician Interpretation * * * * EXAMINATION: CHEST RADIOGRAPH (2 VIEW FRONTAL & LATERAL) CLINICAL HISTORY: SOB (shortness of breath) on exertion MQ: XC2_6 EXAM DATE/TIME: 04/23/2022 9:57 AM COMPARISON: No relevant prior studies available. RESULT: Lines, tubes, and devices: None. Lungs and pleura: No consolidation. No lung mass. No pleural effusion. No pneumothorax. Cardiomediastinal silhouette: Normal cardiomediastinal silhouette. Bones and soft tissues: Unremarkable. IMPRESSION IMPRESSION: No acute radiographic abnormality. Landfill Attendant: PSCB Transcribe Date/Time: Apr 23 2022 9:59A Dictated by : ASHWIN SAMANIEGO MD This examination was interpreted and the report reviewed and electronically signed by: ASHWIN SAMANIEGO MD on Apr 23 2022 9:59AM EST [facility] Radiology Study observation (narrative) [facility] XR Chest PA and LateralOrder ed By: [facility] Provider on 04-23-[address] [facility] ANES POSTPROC EVALon 03-05- 022 ANES POSTPROC EVAL HNO ID: [id number] Author: Eber Crawley MD Service: Anesthesiology Author Type: Anesthesiologist Type: Anesthesia Postprocedure Evaluation Filed: 03/05/2022 1:26 PM Note Text: POST ANESTHESIA EVALUATION NOTE : 1990 Procedure Summary Date: 03/05/22 Room / Location: [facility] Endoscopy Anesthesia Start: 843 Anesthesia Stop: 922 Procedures: COLONOSCOPY SCREENING EGD DIAGNOSTIC Diagnosis: Family history of colon cancer Colon cancer screening Family history of colon cancer in father Dysphagia, unspecified type (Dysphagia) (FH of Colon Cancer - 1st degree relative < 60 yrs) Scheduled Providers: Jaret King MD; Carmelita Montana APRN.TRAFFIC ENGINEERING TECHNICIAN Responsible Provider: Mariela Ruelas MD Anesthesia Type: MAC ASA Status: 3 Anesthesia Type: MAC Last Vitals Vitals Value Taken Time BP 122/62 03/05/22 1000 Temp 36.2 ?C (97.2 ?F) 03/05/22 1000 HR SpO2 88 03/05/22 1000 Resp 20 03/05/22 1000 SpO2 95 % 03/05/22 1000 Post Anesthesia Patient Status Patient Evaluation: bedside. Anticipated Disposition: phase 2 then home. Neurological Status: aware and responsive. Pulmonary Status: breathing comfortably on room air Airway Control: returned to baseline unsupported. Cardiovascular Status: stable. Pain Management: clinically adequate Postoperative Hydration: acceptable. Intraoperative Events: no significant anesthesia events Post Operative Nausea/Vomiting Status: no significant post operative nausea or vomiting Anesthetic Observations: Recommendation: continue current plan of care. Anesthesia Observations No Documentation SIGNATURE: Eber Crawley MD PATIENT NAME: Niko Brooke DATE: March 05, 2022 TIME: 1:26 PM CSN: [id number] Normal [facility] ANES PRE-OPon 03-05-2022 ANES PRE-OP HNO ID: [id number] Author: Mariela Ruelas MD Service: Anesthesiology Author Type: Anesthesiologist Type: Anesthesia Preprocedure Evaluation Filed: 03/05/2022 8:01 AM Note Text: ANESTHESIOLOGY DAY OF SURGERY NOTE : 1990 Procedure Information Date/Time: 03/05/22 0900 Scheduled providers: Jaret King MD; Carmelita Montana APRN.TRAFFIC ENGINEERING TECHNICIAN Procedures: COLONOSCOPY SCREENING EGD DIAGNOSTIC Location: [facility] Endoscopy Estimated body mass index is 49.3 kg/m? as calculated from the following: Height as of 02/05/22: 188 cm (6' 2"). Weight as of 02/05/22: 174.2 kg (384 lb). Most recent hematocrit and potassium results: Hematocrit 41.6 03/19/2021 Potassium 4.3 12/07/2021 Relevant Problems ANESTHESIA (+) DWIGHT (obstructive sleep apnea) CARDIO (+) Essential hypertension GI (+) GERD (gastroesophageal reflux disease) PULMONARY (+) Asthma (+) DWIGHT (obstructive sleep apnea) I - PHYSICAL EVALUATION AIRWAY Patient intubated: No. Tracheostomy tube not present Mallampati: IV. TM distance: >3 FB. Neck ROM: full ROM without neurological symptoms. Mouth opening: adequate. Short neck: no. Thick neck: no DENTAL Dental findings: teeth intact. Additional exam findings: yes. CARDIOVASCULAR Rhythm: regular PULMONARY Breath sounds clear to auscultation. II - ANESTHESIA PLAN ASA Score: 3 Anesthetic Plan: MAC The patient is not a current smoker. Monitoring plan: standard ASA. Postoperative analgesic plan: multimodal analgesia. Patient / Surrogate agrees to blood products: blood products not planned DNR status not reviewed with patient and/or family prior to surgery. Significant changes in the patient condition since the History and Physical, not otherwise documented in primary service progress note: no. Potential Anesthesia issues that may suggest increased risk of complications or contraindication to planned procedure: none. Vitals Value Taken Time BP 125/87 03/05/22 0741 Pulse Resp 18 03/05/22 0741 Temp 36.3 ?C (97.3 ?F) 03/05/22 0741 SpO2 94 % 03/05/22 0741 Outpatient Medications as of 03/05/2022 Medication Sig - omeprazole (PRILOSEC) 20 mg capsule Take 1 capsule by mouth once daily. - MAGNESIUM CARBONATE ORAL Take 1 tablet by mouth. - polyethylene glycol 3350 (MIRALAX, GLYCOLAX) 17 gram/dose powder Use as directed for Miralax / Gatorade Bowel Prep Kit - Bisacodyl (DULCOLAX) 5 mg tab Use as directed for Miralax / Gatorade Bowel Prep Kit - lisinopril (ZESTRIL, PRINIVIL) 10 mg tablet Take 1 tablet by mouth once daily. Take with 5 mg lisinopril once daily - lisinopril (ZESTRIL, PRINIVIL) 5 mg tablet Take 1 tablet by mouth once daily. Take with 10 mg lisinopril once daily - DULoxetine (CYMBALTA) 60 mg capsule Take 1 capsule by mouth every morning. - DULoxetine (CYMBALTA) 30 mg capsule Take 1 capsule by mouth daily at bedtime. - risperiDONE (RISPERDAL) 3 mg tablet Take 1 tablet by mouth twice daily. - gabapentin (NEURONTIN) 300 mg capsule Take 1 capsule by mouth twice daily. - divalproex ER 500 mg 24 hr tablet Take 1,000 mg by mouth twice daily. - CPAP Initiate Auto PAP @ 5-20 cm of water with humidification. Mask (per patient preference) optional chin strap (if indicated) , filters, tubing, humidifier and lifetime supplies. (Patient not taking: Reported on 02/05/2022 ) - albuterol HFA (PROVENTIL HFA, VENTOLIN HFA) 90 mcg/actuation inhaler Inhale 2 Puffs as instructed every 6 hours as needed for Wheezing/Shortness of Breath. - triamcinolone (KENALOG) 0.025 % cream Apply 1 application to affected area twice daily. (Patient taking differently: Apply 1 application to affected area twice daily. Uses as needed ) - cloNIDine HCl (CATAPRES) 0.1 mg tablet Takes 1 to 2 pills daily as needed. (per Mother) For anger Facility-Administered Medications as of 03/05/2022 Medication Dose Route Frequency - lactated ringers iv infusion 30 mL/hr INTRAVENOUS CONTINUOUS I have interviewed and examined the patient. I have reviewed the medical record and/or the pre-anesthesia evaluation, pertinent labs, and test results. This contains updated information obtained within 48 hours of Surgery/Procedure. SIGNATURE: Mariela Ruelas MD PATIENT NAME: Niko Brooke DATE: March 05, 2022 TIME: 8:01 AM CSN: [id number] Normal [facility] COLONOSCOPY SCREENINGon 02-[address] [facility] Colonoscopyon 03-05-2022 Colonoscopy [facility] Gastrointestinal Endoscopy Patient Name: Niko Brooke Procedure Date: 03/05/2022 8:27 AM Date of : 1990 Admit Type: Outpatient Age: 31 Room: [facility] Gender: Male Note Status: Finalized Attending MD: Jaret King MD Procedure: Colonoscopy Indications: Family history of colon cancer in a first-degree relative before age 60 years Providers: Jaret King MD Patient Profile: This is a 31 year old male. Refer to note in patient chart for documentation of history and physical. Last Colonoscopy: none. The patient's first colonoscopy is today. Referring Physician: Roseanna Ross (Referring MD) Medicines: See the Anesthesia note for documentation of the administered medications Complications: No immediate complications. Estimated blood loss: Minimal. Requesting Provider: Procedure: Pre-Anesthesia Assessment: - Prior to the procedure, a History and Physical was performed, and patient medications and allergies were reviewed. The patient's tolerance of previous anesthesia was also reviewed. The risks and benefits of the procedure and the sedation options and risks were discussed with the patient. All questions were answered, and informed consent was obtained. Prior Anticoagulants: The patient has taken no previous anticoagulant or antiplatelet agents. ASA Grade Assessment: III - A patient with severe systemic disease. After reviewing the risks and benefits, the patient was deemed in satisfactory condition to undergo the procedure. After I obtained informed consent, the scope was passed under direct vision. Throughout the procedure, the patient's blood pressure, pulse, and oxygen saturations were monitored continuously. The Colonoscope was introduced through the anus and advanced to the cecum, identified by appendiceal orifice and ileocecal valve. The ileocecal valve, appendiceal orifice, and rectum were photographed. The colonoscopy was performed without difficulty. The patient tolerated the procedure well. The quality of the bowel preparation was good. Scope Withdrawal Time: 0 hours 11 minutes 58 seconds Moderate Sedation: MAC anesthesia was administered by the anesthesia team. Total Procedure Duration: 0 hours 15 minutes 56 seconds Findings: The perianal and digital rectal examinations were normal. A small polyp was found in the ascending colon. The polyp was sessile. The polyp was removed with a jumbo cold forceps. Resection and retrieval were complete. Non-bleeding internal hemorrhoids were found during retroflexion. The hemorrhoids were mild and small. The exam was otherwise without abnormality. Impression: - One small polyp in the ascending colon, removed with a jumbo cold forceps. Resected and retrieved. - Non-bleeding internal hemorrhoids. - The examination was otherwise normal. Recommendation: - Patient has a contact number available for emergencies. The signs and symptoms of potential delayed complications were discussed with the patient. Return to normal activities tomorrow. Written discharge instructions were provided to the patient. - Resume previous diet. - Continue present medications. - Await pathology results. - Repeat colonoscopy in 5 years for surveillance. - Return to nurse practitioner in 1 week. - Resume anticoagulant at prior dose. Procedure Code(s): --- Professional --- 40120, Colonoscopy, flexible; with biopsy, single or multiple Diagnosis Code(s): --- Professional --- K63.5, Polyp of colon K64.8, Other hemorrhoids Z80.0, Family history of malignant neoplasm of digestive organs CPT copyright 2019 [employer]. All rights reserved. The codes documented in this report are preliminary and upon lock plater review may be revised to meet current compliance requirements. Attending Participation: I personally performed the entire procedure. Scope In: 8:58:08 AM Scope Out: 9:14:04 AM MD Jaret Orta MD 03/05/2022 9:22:25 AM This report has been signed electronically by Jaret King MD Number of Addenda: 0 Note Initiated On: 03/05/2022 8:27 AM Estimated Blood Loss: Estimated blood loss was minimal. Normal [facility] EGD DIAGNOSTICon 03-05-[address] [facility] HISTORY PHYSICALon HISTORY PHYSICAL HNO ID: [id number] Author: Jaret King MD Service: General Surgery Author Type: Physician Type: HANDP Filed: 03/05/2022 8:30 AM Note Text: CHIEF COMPLAINT: Patient presents with: GERD Outpatient Colonoscopy: due to family history of colon cancer ? ? This consult was requested by Sarah Herrmann APRN.CNS for an opinion regarding colon cancer screening. My final recommendations will be communicated to the requesting health care provider by way of the shared medical record for internal providers or letter via the [employer] for external providers. ? Niko Brooke is a 31 year old male with a past medical history asthma, depression, spinal stenosis status, encopresis, attention deficit nonhyperactive, excessive anger, DWIGHT on CPAP, HTN. Who presents for colon cancer screening. Patient has a family history of father diagnosed with colon cancer sometime in his 50s, mother has a history large adenoma polyp, brother has a history of colon polyps, maternal grandmother diagnosed with colon cancer and paternal grandfather diagnosed with colon cancer. ? ? HPI: Patient presents today with mother. Here to be evaluated for colon cancer screening has a significant family history of colon colon cancer and colon polyps. ( SEE ABOVE). ? The patient denies change in bowel habits, rectal bleeding or abdominal pain. Having a bowel movement daily or every other day. Patient reports constipation. Patient reports weekly constipation. Patient denies taking anything for constipation. ? Patient reports he does not drink enough water. ? Patient reports he is having acid reflux daily - denies taking anything for it. He reports at times food getting stuck like dry foods and at times chokes on liquid. Patient reports he feels full fast 1 week. Denies nausea or vomiting ? ? Usually has dinner: 5-6pm Evening snack: eats before he goes to bed - peanut butter, juice, donut, cottage cheese. Bedtime medications: yes Heads to bed: 8-10pm Sleeps in a regular bed with the head of the bed 1 pillow. ? ? ? Record Review: [facility] / Outside records reviewed. ? PAST MEDICAL HISTORY PAST MEDICAL HISTORY Diagnosis Date - Asthma 03/05/2010 - ATTN DEFICIT NONHYPERACT 04/18/2006 - Congenital pes planus 09/27/2010 - DEPRESSIVE DISORDER NEC 04/18/2006 - Encopresis 12/15/2014 - Enuresis 12/15/2014 - Excessive anger 07/14/2012 ? followed by psychiatry - Family history of colon cancer ? ? Maternal Grandmother was 33years old when diagnosed and from colon cancer (will need colonoscopy at 28years old for screeening) - Mental retardation, moderate (I.Q. 35-49) 10/12/2007 - Obesity 12/15/2014 - S/P lumbar laminectomy 09/2019 ? Dr. Weinstein - Spinal stenosis of lumbar region with neurogenic claudication 05/10/2019 PAST SURGICAL HISTORY PAST SURGICAL HISTORY Procedure Laterality Date - CIRCUMCISION ? ? - LAMINECTOMY,LUMBAR ? 09/2019 ? L3,4,5 Dr. Weinstein - TONSILLECTOMY AND ADENOIDECTOMY ? Allergies: ALLERGIES ALLERGIES Allergen Reactions - Seasonal Allergies Other: See Comments ? Medications: CURRENT MEDICATIONS ? MAGNESIUM CARBONATE ORAL Take 1 tablet by mouth. lisinopril (ZESTRIL, PRINIVIL) 10 mg tablet Take 1 tablet by mouth once daily. Take with 5 mg lisinopril once daily lisinopril (ZESTRIL, PRINIVIL) 5 mg tablet Take 1 tablet by mouth once daily. Take with 10 mg lisinopril once daily DULoxetine (CYMBALTA) 60 mg capsule Take 1 capsule by mouth every morning. DULoxetine (CYMBALTA) 30 mg capsule Take 1 capsule by mouth daily at bedtime. albuterol HFA (PROVENTIL HFA, VENTOLIN HFA) 90 mcg/actuation inhaler Inhale 2 Puffs as instructed every 6 hours as needed for Wheezing/Shortness of Breath. risperiDONE (RISPERDAL) 3 mg tablet Take 1 tablet by mouth twice daily. triamcinolone (KENALOG) 0.025 % cream Apply 1 application to affected area twice daily. cloNIDine HCl (CATAPRES) 0.1 mg tablet Takes 1 to 2 pills daily as needed. (per Mother) For anger gabapentin (NEURONTIN) 300 mg capsule Take 1 capsule by mouth twice daily. divalproex ER 500 mg 24 hr tablet Take 1,000 mg by mouth twice daily. polyethylene glycol 3350 (MIRALAX, GLYCOLAX) 17 gram/dose powder Use as directed for Miralax / Gatorade Bowel Prep Kit Bisacodyl (DULCOLAX) 5 mg tab Use as directed for Miralax / Gatorade Bowel Prep Kit omeprazole (PRILOSEC) 20 mg capsule Take 1 capsule by mouth once daily. CPAP Initiate Auto PAP @ 5-20 cm of water with humidification. Mask (per patient preference) optional chin strap (if indicated) , filters, tubing, humidifier and lifetime supplies. naproxen (NAPROSYN) 500 mg tablet Take 1 tablet by mouth twice daily as needed. ? FAMILY HISTORY FAMILY HISTORY Problem Relation Age of Onset - Colon Polyps Mother ? ? large polyp - other (Hypothyroidism [Other]) Mother ? - Colon Cancer Father ? ? 50's - Diabetes F (more content not included)... Normal [facility] SURGICAL PATHOLOGYon 022 CASE REPORT Normal [facility] Comment on above: Order Comment: Speci men Type: TISSUE SPECIMEN Ordering Facility: [facility] Address: [address] [place], [place] [id number] Result Comment: Surg [facility] Pathology Report Case: [id number] Authorizing Provider: Jaret King MD Collected: 03/05/2022 08:51 AM Ordering Location: [facility] Endoscopy Received: 03/05/2022 01:09 PM Pathologist: Darvin Marin MD Specimens: A) - DUODENUM BIOPSY, R/O Celiac Sprue B) - STOMACH BIOPSY, R/O H. Pylori C) - FUNDUS (STOMACH) BIOPSY, Fundic Gland Bx D) - ESOPHAGUS LOWER BIOPSY, Distal Esophagus Bx; R/O Bean's E) - ASCENDING COLON BIOPSY Performed By: #### S #### [facility] CLIA [id number] [address] [place] [address] FINAL DIAGNOSIS Normal [facility] Comment on above: Order Comment: Speci men Type: TISSUE SPECIMEN Ordering Facility: [facility] Address: [address] [place] [address] Result Comment: A. D uodenum, biopsy: - Duodenal mucosa with no significant diagnostic alteration. B. Stomach, biopsy: - Mild chronic inactive gastritis. - No morphological evidence of Helicobacter pylori organisms. C. Stomach, fundus polyp, biopsy: - Fundic gland polyp. D. Esophagus, lower, biopsy: - Squamous epithelium with features of reflux. - No evidence of intestinal metaplasia or dysplasia. E. Ascending colon polyp, polypectomy: - Tubular adenoma. Performed By: #### S #### [facility] CLIA [id number] [address] [place] [address] FINAL PERFORMING LAB Normal [facility] Comment on above: Order Comment: Speci men Type: TISSUE SPECIMEN Ordering Facility: [facility] Address: [address] [place], [place] [id number] Result Comment: Diag nostic interpretation performed at [facility], [address] [place] [address] CLIA# [id number] Antique Repairer: Jose Barros M.D. Performed By: #### S #### [facility] [place] [id number] [address] [place] [address] [place] GROSS DESCRIPTION Normal [facility] Comment on above: Order Comment: Speci men Type: TISSUE SPECIMEN Ordering Facility: [facility] Address: [address] [place] [id number] Result Comment: A. D UODENUM BIOPSY. Received in formalin is one piece of allen, soft tissue measuring 0.3 x 0.3 x 0.2 cm. Totally submitted in one cassette. B. STOMACH BIOPSY. Received in formalin is one piece of allen, soft tissue measuring 0.7 x 0.2 x 0.2 cm. Totally submitted in one cassette. C. FUNDUS (STOMACH) BIOPSY. Received in formalin is one piece of allen, soft tissue measuring 0.4 x 0.3 x 0.2 cm. Totally submitted in one cassette. D. ESOPHAGUS LOWER BIOPSY. Received in formalin is one piece of allen-white, soft tissue measuring 0.3 x 0.2 x 0.2 cm. Totally submitted in one cassette. E. ASCENDING COLON BIOPSY. Received in formalin is one piece of allen, soft tissue measuring 0.3 x 0.2 x 0.2 cm. Totally submitted in one cassette. [facility] March 05, 2022 5:11 PM Gross examination performed at [facility], [address] [place] [address] Performed By: #### S #### [facility] [place] [id number] [address] [place] [address] [place] Upper GI endoscopyon 07-13-2 022 Upper GI endoscopy [facility] Gastrointestinal Endoscopy Patient Name: Niko Brooke Procedure Date: 03/05/2022 8:28 AM Date of : 1990 Admit Type: Outpatient Age: 31 Room: [facility] Gender: Male Note Status: Finalized Attending MD: Jaret King MD Procedure: Upper GI endoscopy Indications: Dysphagia Providers: Jaret King MD Patient Profile: This is a 31 year old male. Refer to note in patient chart for documentation of history and physical. Referring Physician: Roseanna Ross (Referring MD) Medicines: See the Anesthesia note for documentation of the administered medications Complications: No immediate complications. Estimated blood loss: Minimal. Requesting Provider: Procedure: Pre-Anesthesia Assessment: - Prior to the procedure, a History and Physical was performed, and patient medications and allergies were reviewed. The patient's tolerance of previous anesthesia was also reviewed. The risks and benefits of the procedure and the sedation options and risks were discussed with the patient. All questions were answered, and informed consent was obtained. Prior Anticoagulants: The patient has taken no previous anticoagulant or antiplatelet agents. ASA Grade Assessment: III - A patient with severe systemic disease. After reviewing the risks and benefits, the patient was deemed in satisfactory condition to undergo the procedure. After obtaining informed consent, the endoscope was passed under direct vision. Throughout the procedure, the patient's blood pressure, pulse, and oxygen saturations were monitored continuously. The Endoscope was introduced through the mouth, and advanced to the second part of duodenum. The upper GI endoscopy was accomplished without difficulty. The patient tolerated the procedure well. Moderate Sedation: MAC anesthesia was administered by the anesthesia team. Total Procedure Duration: 0 hours 5 minutes 27 seconds Findings: The Z-line was regular and was found 43 cm from the incisors. Biopsies were taken with a cold forceps for histology. A few small sessile polyps with no bleeding and no stigmata of recent bleeding were found in the gastric body. The polyp was removed with a jumbo cold forceps. Resection and retrieval were complete. The examined duodenum was normal. Biopsies were taken with a cold forceps for histology. Localized minimal inflammation characterized by erythema was found in the prepyloric region of the stomach. Biopsies were taken with a cold forceps for Helicobacter pylori testing. Impression: - Z-line regular, 43 cm from the incisors. Biopsied. - A few gastric polyps. Resected and retrieved. - Normal examined duodenum. Biopsied. - Gastritis. Biopsied. Recommendation: - Patient has a contact number available for emergencies. The signs and symptoms of potential delayed complications were discussed with the patient. Return to normal activities tomorrow. Written discharge instructions were provided to the patient. - Resume previous diet. - Continue present medications. - Await pathology results. - Repeat upper endoscopy PRN for surveillance. - Return to nurse practitioner in 1 week. Procedure Code(s): --- Professional --- 61707, Esophagogastroduodeno scopy, flexible, transoral; with biopsy, single or multiple Diagnosis Code(s): --- Professional --- K31.7, Polyp of stomach and duodenum K29.70, Gastritis, unspecified, without bleeding R13.10, Dysphagia, unspecified CPT copyright 2019 [employer]. All rights reserved. The codes documented in this report are preliminary and upon lock plater review may be revised to meet current compliance requirements. Attending Participation: I personally performed the entire procedure. Scope In: 8:48:18 AM Scope Out: 8:53:45 AM MD Jaret Orta MD 03/05/2022 9:18:33 AM This report has been signed electronically by Jaret King MD Number of Addenda: 0 Note Initiated On: 03/05/2022 8:28 AM Estimated Blood Loss: Estimated blood loss was minimal. Normal [facility] Valproic Acidon 09-10-2021 Valproic Acid Normal 50-[address] [facility] Reference Lab Comment on above: Result Comment: Unab le to assay. No specimen received. [id number], [facility] [id number] Account Credited Michael 03-20-2021 ALT [Catalytic activity/Vol] 46 U/L Normal 10-[address] [facility] Comment on above: Performed By: #### V PA, ALT, NH3, HBA1C, PROL, AST, PLTCT, LIPB #### [facility] Routine Lab [address] [place] [id number] Niru 03-20-2021 AST [Catalytic activity/Vol] 47 U/L High 14-[address] [facility] Reference [facility] Comment on above: Performed By: #### V PA, ALT, NH3, HBA1C, PROL, AST, PLTCT, LIPB #### [facility] Routine Lab [address] [place] [id number] Ammoniaon 03-20-2021 Ammonia (P) [Moles/Vol] 43 umol/L Normal 16-[address] [facility] Reference Lab Comment on above: Performed By: #### V PA, ALT, NH3, HBA1C, PROL, AST, PLTCT, LIPB #### [facility] Routine Lab [address] [place], [place] [address] Hemoglobin A1con 03-20-2021 Glucose [Mass/Vol] 134 mg/dL Normal [facility] Reference Lab Comment on above: Performed By: #### V PA, ALT, NH3, HBA1C, PROL, AST, PLTCT, LIPB #### [facility] Routine Lab [address] [place], [place] [address] HbA1c (Bld) [Mass fraction] 6.3 % High 4.3-5.[address] [facility] Reference Lab Comment on above: Performed By: #### V PA, ALT, NH3, HBA1C, PROL, AST, PLTCT, LIPB #### [facility] Routine Lab [address] [place] [address] Lipid Panel, Basicon 021 Cholesterol [Mass/Vol] 204 mg/dL High <[address] [facility] Comment on above: Performed By: #### V PA, ALT, NH3, HBA1C, PROL, AST, PLTCT, LIPB #### [facility] Routine Lab [address] [place] [address] Cholesterol in HDL [Mass/Vol] 31 mg/dL Low >[address] [facility] Reference [facility] Comment on above: Performed By: #### V PA, ALT, NH3, HBA1C, PROL, AST, PLTCT, LIPB #### [facility] Routine Lab [address] [place] [address] Cholesterol in LDL [Mass/Vol] 143 mg/dL High <[address] [facility] Reference Lab Comment on above: Performed By: #### V PA, ALT, NH3, HBA1C, PROL, AST, PLTCT, LIPB #### [facility] Routine Lab [address] [place] [address] Cholesterol in VLDL [Mass/Vol] 30 mg/dL High <[address] [facility] Reference Lab Comment on above: Performed By: #### V PA, ALT, NH3, HBA1C, PROL, AST, PLTCT, LIPB #### [facility] Routine Lab [address] [place] [phone] Cholesterol non HDL [Mass/Vol] 173 mg/dL High <[address] [facility] Reference Lab Comment on above: Performed By: #### V PA, ALT, NH3, HBA1C, PROL, AST, PLTCT, LIPB #### [facility] Routine Lab [address] [place] [address] LDL:HDL Ratio 4.61 High <2.[address] [facility] Reference Lab Comment on above: Performed By: #### V PA, ALT, NH3, HBA1C, PROL, AST, PLTCT, LIPB #### [facility] Routine Lab [address] [place] [address] TC:HDL Ratio 6.58 High <5.[address] [facility] Reference Lab Comment on above: Performed By: #### V PA, ALT, NH3, HBA1C, PROL, AST, PLTCT, LIPB #### [facility] Routine Lab [address] [place] [phone] Triglyceride [Mass/Vol] 151 mg/dL High <[address] [facility] Reference Lab Comment on above: Performed By: #### V PA, ALT, NH3, HBA1C, PROL, AST, PLTCT, LIPB #### [facility] Routine Lab [address] [place] [address] Platelet Counton 03-20-2021 Platelets (Bld) [#/Vol] 229 10*3/uL Normal 150-[address] [facility] Reference Lab Comment on above: Performed By: #### V PA, ALT, NH3, HBA1C, PROL, AST, PLTCT, LIPB #### [facility] Routine Lab [address] [place] [address] Prolactinon 03-20-2021 Prolactin 32.7 ng/mL High 4.0-15.[address] [facility] Reference Lab Comment on above: Performed By: #### V PA, ALT, NH3, HBA1C, PROL, AST, PLTCT, LIPB #### [facility] Routine Lab [address] [place] [address] Valproic Acidon 03-20-2021 Valproic Acid 37.4 ug/mL Low 50-[address] [facility] Reference [facility] Comment on above: Performed By: #### V PA, ALT, NH3, HBA1C, PROL, AST, PLTCT, LIPB #### [facility] Routine Lab [address] [place] [address] Lipid Panel, Basicon 021 Fasting Time UN Normal [facility] Reference Lab Comment on above: Performed By: #### V PA, ALT, NH3, HBA1C, PROL, AST, PLTCT, LIPB #### [facility] Routine Lab [address] [place] [address] Ammoniaon 11-25-2018 Ammonia mass conc (P) 38 umol/L Normal 16-[address] [facility] Reference Lab Comment on above: Performed By: #### N H3 #### [facility] Routine Lab [address] [place] [phone] Michael 11-21-2018 ALT enzyme act/vol 32 U/L Normal 10-54 [facility] Reference Lab Comment on above: Performed By: #### P LTCT, VPA, ALT, AST, PROL, HBA1C #### [facility] Routine Lab [address] [place] [address] Niru 11-21-2018 AST enzyme act/vol 23 U/L Normal 14-40 [facility] Reference Lab Comment on above: Performed By: #### P LTCT, VPA, ALT, AST, PROL, HBA1C #### [facility] Routine Lab [address] [place] [address] Hemoglobin A1con 11-21-2018 Hemoglobin A1c/Hemoglobin.tot al mass fraction (Bld) 5.5 % Normal 4.3-5.[address] [facility] Comment on above: Performed By: #### P LTCT, VPA, ALT, AST, PROL, HBA1C #### [facility] Routine Lab [address] [place] [address] Hemoglobin A1c/Hemoglobin.tot al mass fraction (Bld) 111 mg/dL Normal [facility] Comment on above: Performed By: #### P LTCT, VPA, ALT, AST, PROL, HBA1C #### [facility] Routine Lab [address] [place] [address] Platelet Counton 11-21-2018 Platelets #/vol (Bld) 203 10*3/uL Normal 150-[address] [facility] Comment on above: Performed By: #### P LTCT, VPA, ALT, AST, PROL, HBA1C #### [facility] Routine Lab [address] [place] [address] Prolactinon 11-21-2018 Protein mass conc 38.4 ng/mL High 4.0-15.2 [facility] Reference Lab Comment on above: Performed By: #### P LTCT, VPA, ALT, AST, PROL, HBA1C #### [facility] Routine Lab [address] [place] [phone] Valproic Acidon 11-21-2018 Protein mass conc 53.4 ug/mL Normal 50-100 [facility] Reference Lab Comment on above: Performed By: #### P LTCT, VPA, ALT, AST, PROL, HBA1C #### [facility] Routine Lab [address] [place] [address] CBCon 12-30-2017 Absolute nRBC <0.01 Normal <0.[address] [facility] Reference Lab Comment on above: Performed By: #### C BC, VPA, CMP #### [facility] Routine Lab [facility] [place] [address] Erythrocyte distribution width Ratio (RBC) 12.1 % Normal 11.5-15.[address] [facility] Reference Lab Comment on above: Performed By: #### C BC, VPA, CMP #### [facility] Routine Lab [facility] [place] [address] Hematocrit Volume Fraction (Bld) 43.5 % Normal 39.0-51.[address] [facility] Reference Lab Comment on above: Performed By: #### C BC, VPA, CMP #### [facility] Routine Lab [address] [place], [place] [address] Hemoglobin mass conc (Bld) 14.2 g/dL Normal 13.0-17.[address] [facility] Reference Lab Comment on above: Performed By: #### C BC, VPA, CMP #### [facility] Routine Lab [address] [place], [place] [address] MCH Entitic mass (RBC) 28.5 pG Normal 26.0-34.[address] [facility] Reference Lab Comment on above: Performed By: #### C BC, VPA, CMP #### [facility] Routine Lab [address] [place] [address] MCHC mass conc (RBC) 32.6 g/dL Normal 30.5-36.[address] [facility] Reference Lab Comment on above: Performed By: #### C BC, VPA, CMP #### [facility] Routine Lab [address] [place] [address] MCV Entitic volume (RBC) 87.3 fL Normal 80.0-100.[address] [facility] Reference Lab Comment on above: Performed By: #### C BC, VPA, CMP #### [facility] Routine Lab [address] [place], [place] [address] Platelet mean volume Entitic volume (Bld) 11.3 fL Normal 9.0-12.[address] [facility] Reference Lab Comment on above: Performed By: #### C BC, VPA, CMP #### [facility] Routine Lab [address] [place], [place] [address] Platelets #/vol (Bld) 202 10*3/uL Normal 150-[address] [facility] Reference Lab Comment on above: Performed By: #### C BC, VPA, CMP #### [facility] Routine Lab [address] [place], [place] [address] RBC #/vol (Bld) 4.98 10*6/uL Normal 4.20-6.00 [facility] Reference Lab Comment on above: Performed By: #### C BC, VPA, CMP #### [facility] Routine Lab [address] [place], [place] [address] WBC #/vol (Bld) 8.36 10*3/uL Normal 3.70-11.00 [facility] Reference Lab Comment on above: Performed By: #### C BC, VPA, CMP #### [facility] Routine Lab [address] [place] [address] Comp Metabolic Panelon 12-30 Albumin mass conc 4.4 g/dL Normal 3.9-4.9 [facility] Reference Lab Comment on above: Performed By: #### C BC, VPA, CMP #### [facility] Routine Lab [address] [place] [address] ALP enzyme act/vol 60 U/L Normal 36-108 [facility] Reference Lab Comment on above: Performed By: #### C BC, VPA, CMP #### [facility] Routine Lab [address] [place], [place] [address] ALT enzyme act/vol 43 U/L Normal 10-54 [facility] Reference Lab Comment on above: Performed By: #### C BC, VPA, CMP #### [facility] Routine Lab [address] [place], [place] [phone] Anion gap molar conc 15 mmol/L Normal 9-[address] [facility] Reference Lab Comment on above: Performed By: #### C BC, VPA, CMP #### [facility] Routine Lab [address] [place], [place] [address] AST enzyme act/vol 32 U/L Normal 14-40 [facility] Reference Lab Comment on above: Performed By: #### C BC, VPA, CMP #### [facility] Routine Lab [address] [place], [place] [address] Bilirubin Ql (U) 0.3 mg/dL Normal 0.2-1.3 [facility] Reference Lab Comment on above: Performed By: #### C BC, VPA, CMP #### [facility] Routine Lab [address] [place] [phone] Calcium mass conc 9.0 mg/dL Normal 8.5-10.2 [facility] Reference Lab Comment on above: Performed By: #### C BC, VPA, CMP #### [facility] Routine Lab [address] [place] [phone] Chloride molar conc 101 mmol/L Normal 97-[address] [facility] Reference Lab Comment on above: Performed By: #### C BC, VPA, CMP #### [facility] Routine Lab [address] [place] [phone] CO2 molar conc 24 mmol/L Normal 22-[address] [facility] Reference Lab Comment on above: Performed By: #### C BC, VPA, CMP #### [facility] Routine Lab [address] [place] [phone] Creatinine mass conc 0.66 mg/dL Low 0.73-1.[address] [facility] Reference Lab Comment on above: Performed By: #### C BC, VPA, CMP #### [facility] Routine Lab [address] [place] [phone] eGFR- Amer. >60 Normal [facility] Reference Lab Comment on above: Performed By: #### C BC, VPA, CMP #### [facility] Routine Lab [address] [place] [phone] GFR/1.73 sq M predicted among non-blacks MDRD vol rate/area (S/P/Bld) mL/min/{1.73_m2} Normal [facility] Reference Lab Comment on above: Performed By: #### C BC, VPA, CMP #### [facility] Routine Lab [address] [place] [phone] Glucose mass conc 124 mg/dL High 74-99 [facility] Reference Lab Comment on above: Performed By: #### C BC, VPA, CMP #### [facility] Routine Lab [address] [place] [phone] Potassium molar conc 4.4 mmol/L Normal 3.7-5.[address] [facility] Reference Lab Comment on above: Performed By: #### C BC, VPA, CMP #### [facility] Routine Lab [address] [place] [phone] Protein mass conc 6.8 g/dL Normal 6.3-8.0 [facility] Reference Lab Comment on above: Performed By: #### C BC, VPA, CMP #### [facility] Routine Lab [address] [place] [address] Sodium molar conc 140 mmol/L Normal 136-144 [facility] Reference Lab Comment on above: Performed By: #### C BC, VPA, CMP #### [facility] Routine Lab [address] [place] [address] Urea nitrogen mass conc 9 mg/dL Normal 9-[address] [facility] Reference Lab Comment on above: Performed By: #### C BC, VPA, CMP #### [facility] Routine Lab [address] [place] [address] Valproic Acidon 12-30-2017 Protein mass conc 62.0 ug/mL Normal 50-100 [facility] Reference Lab Comment on above: Performed By: #### C BC, VPA, CMP #### [facility] Routine Lab [address] [place], [place] [address] Office Visit: Spine Visiton 07-07-2017 Documentation of current medications (procedure) Done Invalid Interpretation Code [facility] Work Phone: Tobacco smoking status NHIS Tobacco smoking status NHIS Invalid Interpretation Code [facility] Work Phone: Tobacco use [facility] Never smoker Invalid Interpretation Code [facility] Work Phone: Vital Signs Date Time Vital Sign Value Performing Clinician Facility 04-21-2025 15:40-0400 Body mass index (BMI) [Ratio] 46.36 kg/m2 Sarah Herrmann SALES LEAD.HEALTH CARE SPECIALIST Work Phone: [facility] 04-21-2025 15:40-0400 Body weight 163.8 kg Sarah Herrmann SALES LEAD.HEALTH CARE SPECIALIST Work Phone: [facility] 04-21-2025 15:40-0400 Diastolic blood pressure 78 mm[Hg] Sarah Herrmann SALES LEAD.HEALTH CARE SPECIALIST Work Phone: [facility] 04-21-2025 15:40-0400 Heart rate 103 /min Sarah Herrmann SALES LEAD.HEALTH CARE SPECIALIST Work Phone: [facility] 04-21-2025 15:40-0400 Respiratory rate 20 /min Sarah Herrmann SALES LEAD.HEALTH CARE SPECIALIST Work Phone: [facility] 04-21-2025 15:40-0400 SaO2% (BldA) [Mass fraction] 96 % Sarah Herrmann SALES LEAD.HEALTH CARE SPECIALIST Work Phone: [facility] 04-21-2025 15:40-0400 Systolic blood pressure 109 mm[Hg] Sarah Herrmann SALES LEAD.HEALTH CARE SPECIALIST Work Phone: [facility] 12-20-2024 14:58-0400 Body mass index (BMI) [Ratio] 45.85 kg/m2 Sarah Herrmann SALES LEAD.HEALTH CARE SPECIALIST Work Phone: [facility] 12-20-2024 14:58-0400 Body weight 162 kg Sarah Herrmann SALES LEAD.HEALTH CARE SPECIALIST Work Phone: [facility] 12-20-2024 14:58-0400 Diastolic blood pressure 78 mm[Hg] Sarah Herrmann SALES LEAD.HEALTH CARE SPECIALIST Work Phone: [facility] 12-20-2024 14:58-0400 Heart rate 106 /min Sarah Herrmann SALES LEAD.HEALTH CARE SPECIALIST Work Phone: [facility] 12-20-2024 14:58-0400 Respiratory rate 16 /min Sarah Herrmann SALES LEAD.HEALTH CARE SPECIALIST Work Phone: [facility] 12-20-2024 14:58-0400 Systolic blood pressure 118 mm[Hg] Sarah Herrmann SALES LEAD.HEALTH CARE SPECIALIST Work Phone: [facility] 10-10-2024 11:06-0500 Body mass index (BMI) [Ratio] 46.08 kg/m2 Brandee Praisler-Wood SALES LEAD.RETAIL SALES MERCHANDISER Work Phone: [facility] 10-10-2024 11:06-0500 Body temperature 97.3 [degF] Brandee Praisler-Wood SALES LEAD.RETAIL SALES MERCHANDISER Work Phone: [facility] 10-10-2024 11:06-0500 Body weight 162.8 kg Brandee Praisler-Wood SALES LEAD.RETAIL SALES MERCHANDISER Work Phone: [facility] 10-10-2024 11:06-0500 Diastolic blood pressure 78 mm[Hg] Brandee Praisler-Wood SALES LEAD.RETAIL SALES MERCHANDISER Work Phone: [facility] 10-10-2024 11:06-0500 Heart rate 104 /min Brandee Praisler-Wood SALES LEAD.RETAIL SALES MERCHANDISER Work Phone: [facility] 10-10-2024 11:06-0500 Respiratory rate 20 /min Brandee Praisler-Wood SALES LEAD.RETAIL SALES MERCHANDISER Work Phone: [facility] 10-10-2024 11:06-0500 SaO2% (BldA) [Mass fraction] 95 % Brandee Praisler-Wood SALES LEAD.RETAIL SALES MERCHANDISER Work Phone: [facility] 10-10-2024 11:06-0500 Systolic blood pressure 136 mm[Hg] Brandee Praisler-Wood SALES LEAD.RETAIL SALES MERCHANDISER Work Phone: [facility] 08-15-2024 09:09-0500 Diastolic blood pressure 70 mm[Hg] Hector Currie MD Work Phone: [facility] 08-15-2024 09:09-0500 Systolic blood pressure 118 mm[Hg] Hector Currie MD Work Phone: [facility] 08-15-2024 08:26-0500 Body mass index (BMI) [Ratio] 45.85 kg/m2 Hector Currie MD Work Phone: [facility] 08-15-2024 08:26-0500 Body temperature 97.5 [degF] Hector Currie MD Work Phone: [facility] 08-15-2024 08:26-0500 Body weight 162 kg Hector Currie MD Work Phone: [facility] 08-15-2024 08:26-0500 Heart rate 98 /min Hector Currie MD Work Phone: [facility] 08-15-2024 08:26-0500 Respiratory rate 16 /min Hector Currie MD Work Phone: [facility] 08-15-2024 08:26-0500 SaO2% (BldA) [Mass fraction] 96 % Hector Currie MD Work Phone: [facility] 06-14-2024 15:45-0400 Body mass index (BMI) [Ratio] 43.99 kg/m2 Liudmila Ross SALES LEAD.RETAIL SALES MERCHANDISER Work Phone: [facility] 06-14-2024 15:45-0400 Body weight 155.4 kg Liudmila Ross SALES LEAD.RETAIL SALES MERCHANDISER Work Phone: [facility] 06-14-2024 15:45-0400 Diastolic blood pressure 74 mm[Hg] Liudmila Ross SALES LEAD.RETAIL SALES MERCHANDISER Work Phone: [facility] 06-14-2024 15:45-0400 Heart rate 88 /min Liudmila Ross SALES LEAD.RETAIL SALES MERCHANDISER Work Phone: [facility] 06-14-2024 15:45-0400 Respiratory rate 18 /min Liudmila Ross SALES LEAD.RETAIL SALES MERCHANDISER Work Phone: [facility] 06-14-2024 15:45-0400 Systolic blood pressure 124 mm[Hg] Liudmila Ross SALES LEAD.RETAIL SALES MERCHANDISER Work Phone: [facility] 05-09-2024 12:31-0400 Body mass index (BMI) [Ratio] 44.24 kg/m2 Rosalinda CARR Work Phone: [facility] 05-09-2024 12:31-0400 Body temperature 98.2 [degF] Krislyn Aberegg PA Work Phone: [facility] 05-09-2024 12:31-0400 Body weight 156.3 kg Krislyn Aberegg PA Work Phone: [facility] 05-09-2024 12:31-0400 Diastolic blood pressure 66 mm[Hg] Krislyn Aberegg PA Work Phone: [facility] 05-09-2024 12:31-0400 Heart rate 98 /min Krislyn Aberegg PA Work Phone: [facility] 05-09-2024 12:31-0400 Respiratory rate 18 /min Krislyn Aberegg PA Work Phone: [facility] 05-09-2024 12:31-0400 SaO2% (BldA) [Mass fraction] 96 % Krislyn Aberegg PA Work Phone: [facility] 05-09-2024 12:31-0400 Systolic blood pressure 120 mm[Hg] Krislyn Aberegg PA Work Phone: [facility] 04-05-2024 14:39-0400 Body mass index (BMI) [Ratio] 45.71 kg/m2 Hector Currie MD Work Phone: [facility] 04-05-2024 14:39-0400 Body temperature 97.39 [degF] Hector Currie MD Work Phone: [facility] 04-05-2024 14:39-0400 Body weight 161.5 kg Hector Currie MD Work Phone: [facility] 04-05-2024 14:39-0400 Diastolic blood pressure 78 mm[Hg] Hector Currie MD Work Phone: [facility] 04-05-2024 14:39-0400 Heart rate 90 /min Hector Currie MD Work Phone: [facility] 04-05-2024 14:39-0400 Respiratory rate 18 /min Hector Currie MD Work Phone: [facility] 04-05-2024 14:39-0400 SaO2% (BldA) [Mass fraction] 96 % Hector Currie MD Work Phone: [facility] 04-05-2024 14:39-0400 Systolic blood pressure 112 mm[Hg] Hector Currie MD Work Phone: [facility] 12-01-2023 18:39-0400 Body mass index (BMI) [Ratio] 46.09 kg/m2 Hector Currie MD Work Phone: [facility] 12-01-2023 18:39-0400 Body weight 162.84 kg Hector Currie MD Work Phone: [facility] 12-01-2023 18:39-0400 Diastolic blood pressure 64 mm[Hg] Hector Currie MD Work Phone: [facility] 12-01-2023 18:39-0400 Heart rate 104 /min Hector Currie MD Work Phone: [facility] 12-01-2023 18:39-0400 Respiratory rate 16 /min Hector Currie MD Work Phone: [facility] 12-01-2023 18:39-0400 SaO2% (BldA) [Mass fraction] 96 % Hector Currie MD Work Phone: [facility] 12-01-2023 18:39-0400 Systolic blood pressure 118 mm[Hg] Hector Currie MD Work Phone: [facility] 11-06-2023 10:07-0400 Body temperature 98.49 [degF] Anneliese Francisco SALES LEAD.RETAIL SALES MERCHANDISER Work Phone: [facility] 11-06-2023 10:07-0400 Body weight 164 kg Anneliese Francisco SALES LEAD.RETAIL SALES MERCHANDISER Work Phone: [facility] 11-06-2023 10:07-0400 Diastolic blood pressure 69 mm[Hg] Anneliese Francisco SALES LEAD.RETAIL SALES MERCHANDISER Work Phone: [facility] 11-06-2023 10:07-0400 Heart rate 106 /min Anneliese Francisco SALES LEAD.RETAIL SALES MERCHANDISER Work Phone: [facility] 11-06-2023 10:07-0400 Respiratory rate 20 /min Anneliese Francisco SALES LEAD.RETAIL SALES MERCHANDISER Work Phone: [facility] 11-06-2023 10:07-0400 SaO2% (BldA) [Mass fraction] 95 % Anneliese Francisco SALES LEAD.RETAIL SALES MERCHANDISER Work Phone: [facility] 11-06-2023 10:07-0400 Systolic blood pressure 110 mm[Hg] Anneliese Francisco SALES LEAD.RETAIL SALES MERCHANDISER Work Phone: [facility] 09-28-2023 10:55-0500 Body weight 159.67 kg Carmelita William SALES LEAD.RETAIL SALES MERCHANDISER Work Phone: [facility] 05-23-2023 15:28-0400 Body temperature 97.3 [degF] Sreekanth Ackerman MD Work Phone: [facility] 05-23-2023 15:28-0400 Body weight 162.66 kg Sreekanth Ackerman MD Work Phone: [facility] 05-23-2023 15:28-0400 Diastolic blood pressure 80 mm[Hg] Sreekanth Ackerman MD Work Phone: [facility] 05-23-2023 15:28-0400 Heart rate 94 /min Sreekanth Ackerman MD Work Phone: [facility] 05-23-2023 15:28-0400 Respiratory rate 16 /min Sreekanth Ackerman MD Work Phone: [facility] 05-23-2023 15:28-0400 Systolic blood pressure 122 mm[Hg] Sreekanth Ackerman MD Work Phone: [facility] 02-13-2023 16:33-0400 Body temperature 97.81 [degF] Celso Smith SALES LEAD.RETAIL SALES MERCHANDISER Work Phone: [facility] 02-13-2023 16:33-0400 Body weight 166.56 kg Celso Smith SALES LEAD.RETAIL SALES MERCHANDISER Work Phone: [facility] 02-13-2023 16:33-0400 Diastolic blood pressure 68 mm[Hg] Celso Luis SALES LEAD.RETAIL SALES MERCHANDISER Work Phone: [facility] 02-13-2023 16:33-0400 Heart rate 110 /min Celso Luis SALES LEAD.RETAIL SALES MERCHANDISER Work Phone: [facility] 02-13-2023 16:33-0400 Respiratory rate 20 /min Celso Luis SALES LEAD.RETAIL SALES MERCHANDISER Work Phone: [facility] 02-13-2023 16:33-0400 SaO2% (BldA) [Mass fraction] 98 % Celso Smith SALES LEAD.RETAIL SALES MERCHANDISER Work Phone: [facility] 02-13-2023 16:33-0400 Systolic blood pressure 122 mm[Hg] Celso Smith SALES LEAD.RETAIL SALES MERCHANDISER Work Phone: [facility] 12-26-2022 11:04-0400 Body weight 168.28 kg Carmelita Thomas SALES LEAD.RETAIL SALES MERCHANDISER Work Phone: [facility] 12-17-2022 16:47-0400 Body temperature 98.2 [degF] Madelaine Athy PA-C Work Phone: [facility] 12-17-2022 16:47-0400 Body weight 168.38 kg Madelaine Athy PA-C Work Phone: [facility] 12-17-2022 16:47-0400 Diastolic blood pressure 78 mm[Hg] Madelaine Athy PA-C Work Phone: [facility] 12-17-2022 16:47-0400 Heart rate 94 /min Madelaine Athy PA-C Work Phone: [facility] 12-17-2022 16:47-0400 Respiratory rate 18 /min Madelaine Athy PA-C Work Phone: [facility] 12-17-2022 16:47-0400 SaO2% (BldA) [Mass fraction] 96 % Madelaine Bartolome PA-C Work Phone: [facility] 12-17-2022 16:47-0400 Systolic blood pressure 118 mm[Hg] Madelaine Bartolome PA-C Work Phone: [facility] 11-17-2022 17:34-0400 Body temperature 98.29 [degF] Sreekanth Ackerman MD Work Phone: [facility] 11-17-2022 17:34-0400 Body weight 166.92 kg Sreekanth Ackerman MD Work Phone: [facility] 11-17-2022 17:34-0400 Diastolic blood pressure 84 mm[Hg] Sreekanth Ackerman MD Work Phone: [facility] 11-17-2022 17:34-0400 Heart rate 112 /min Sreekanth Ackerman MD Work Phone: [facility] 11-17-2022 17:34-0400 Respiratory rate 18 /min Sreekanth Ackerman MD Work Phone: [facility] 11-17-2022 17:34-0400 SaO2% (BldA) [Mass fraction] 96 % Sreekanth Ackerman MD Work Phone: [facility] 11-17-2022 17:34-0400 Systolic blood pressure 132 mm[Hg] Sreekanth Ackerman MD Work Phone: [facility] 11-04-2022 18:39-0400 Body temperature 97.81 [degF] Hector Currie MD Work Phone: [facility] 11-04-2022 18:39-0400 Body weight 167.83 kg Hector Currie MD Work Phone: [facility] 11-04-2022 18:39-0400 Diastolic blood pressure 82 mm[Hg] Hector Currie MD Work Phone: [facility] 11-04-2022 18:39-0400 Heart rate 79 /min Hector Currie MD Work Phone: [facility] 11-04-2022 18:39-0400 Respiratory rate 18 /min Hector Currie MD Work Phone: [facility] 11-04-2022 18:39-0400 SaO2% (BldA) [Mass fraction] 96 % Hector Currie MD Work Phone: [facility] 11-04-2022 18:39-0400 Systolic blood pressure 134 mm[Hg] Hector Currie MD Work Phone: [facility] 10-03-2022 13:01-0500 Body weight 171.91 kg Carmelita Thomas SALES LEAD.RETAIL SALES MERCHANDISER Work Phone: [facility] 09-26-2022 15:52-0500 Body weight 171.91 kg Sarah Herrmann SALES LEAD.HEALTH CARE SPECIALIST Work Phone: [facility] 09-26-2022 15:52-0500 Diastolic blood pressure 80 mm[Hg] Sarah Herrmann SALES LEAD.HEALTH CARE SPECIALIST Work Phone: [facility] 09-26-2022 15:52-0500 Heart rate 102 /min Sarah Herrmann SALES LEAD.HEALTH CARE SPECIALIST Work Phone: [facility] 09-26-2022 15:52-0500 Respiratory rate 16 /min Sarah Herrmann SALES LEAD.HEALTH CARE SPECIALIST Work Phone: [facility] 09-26-2022 15:52-0500 SaO2% (BldA) [Mass fraction] 96 % Sarah Herrmann SALES LEAD.HEALTH CARE SPECIALIST Work Phone: [facility] 09-26-2022 15:52-0500 Systolic blood pressure 120 mm[Hg] Sarah Herrmann SALES LEAD.HEALTH CARE SPECIALIST Work Phone: [facility] 09-17-2022 15:44-0500 Body temperature 98.01 [degF] Liudmila Carlosr SALES LEAD.RETAIL SALES MERCHANDISER Work Phone: [facility] 09-17-2022 15:44-0500 Body weight 172.09 kg Liudmila Ross SALES LEAD.RETAIL SALES MERCHANDISER Work Phone: [facility] 09-17-2022 15:44-0500 Diastolic blood pressure 88 mm[Hg] Liudmila Ross SALES LEAD.RETAIL SALES MERCHANDISER Work Phone: [facility] 09-17-2022 15:44-0500 Heart rate 119 /min Liudmila Ross SALES LEAD.RETAIL SALES MERCHANDISER Work Phone: [facility] 09-17-2022 15:44-0500 Respiratory rate 20 /min Liudmila Ross SALES LEAD.RETAIL SALES MERCHANDISER Work Phone: [facility] 09-17-2022 15:44-0500 SaO2% (BldA) [Mass fraction] 97 % Liudmila Orss SALES LEAD.RETAIL SALES MERCHANDISER Work Phone: [facility] 09-17-2022 15:44-0500 Systolic blood pressure 146 mm[Hg] Liudmila Ross SALES LEAD.RETAIL SALES MERCHANDISER Work Phone: [facility] 09-16-2022 09:50-0500 Heart rate 110 /min [facility] 09-16-2022 09:50-0500 Respiratory rate 22 /min [facility] 09-16-2022 09:03-0500 SaO2% (BldA) [Mass fraction] 96 % [facility] 09-16-2022 08:45-0500 Body height 187.96 cm [facility] 09-16-2022 08:45-0500 Body mass index (BMI) [Ratio] 50.1 kg/m2 [facility] 09-16-2022 08:45-0500 Body temperature 97.5 [degF] [facility] 09-16-2022 08:45-0500 Body weight 176.9 kg [facility] 09-16-2022 08:45-0500 Diastolic blood pressure 92 mm[Hg] [facility] 09-16-2022 08:45-0500 Systolic blood pressure 154 mm[Hg] [facility] 07-22-2022 11:11-0500 Body weight 175.09 kg Sarah Herrmann SALES LEAD.HEALTH CARE SPECIALIST Work Phone: [facility] 07-22-2022 11:11-0500 Diastolic blood pressure 88 mm[Hg] Sarah Herrmann SALES LEAD.HEALTH CARE SPECIALIST Work Phone: [facility] 07-22-2022 11:11-0500 Heart rate 84 /min Sarah Herrmann SALES LEAD.HEALTH CARE SPECIALIST Work Phone: [facility] 07-22-2022 11:11-0500 Respiratory rate 26 /min Sarah Herrmann SALES LEAD.HEALTH CARE SPECIALIST Work Phone: [facility] 07-22-2022 11:11-0500 Systolic blood pressure 124 mm[Hg] Sarah Herrmann SALES LEAD.HEALTH CARE SPECIALIST Work Phone: [facility] 05-13-2022 18:15-0400 Body weight 171.91 kg Hector Currie MD Work Phone: [facility] 05-13-2022 18:15-0400 Diastolic blood pressure 72 mm[Hg] Hector Currie MD Work Phone: [facility] 05-13-2022 18:15-0400 Heart rate 92 /min Hector Currie MD Work Phone: [facility] 05-13-2022 18:15-0400 SaO2% (BldA) [Mass fraction] 97 % Hector Currie MD Work Phone: [facility] 05-13-2022 18:15-0400 Systolic blood pressure 112 mm[Hg] Hector Currie MD Work Phone: [facility] 05-01-2022 16:12-0400 Body temperature 97.81 [degF] Alyssa Hernandez SALES LEAD.RETAIL SALES MERCHANDISER Work Phone: [facility] 05-01-2022 16:12-0400 Body weight 167.92 kg Alyssa Hernandez SALES LEAD.RETAIL SALES MERCHANDISER Work Phone: [facility] 05-01-2022 16:12-0400 Diastolic blood pressure 80 mm[Hg] Alyssa Hernandez SALES LEAD.RETAIL SALES MERCHANDISER Work Phone: [facility] 05-01-2022 16:12-0400 Heart rate 108 /min Alyssa Callow SALES LEAD.RETAIL SALES MERCHANDISER Work Phone: [facility] 05-01-2022 16:12-0400 Respiratory rate 18 /min Alyssa Callow SALES LEAD.RETAIL SALES MERCHANDISER Work Phone: [facility] 05-01-2022 16:12-0400 SaO2% (BldA) [Mass fraction] 97 % ow SALES LEAD.RETAIL SALES MERCHANDISER Work Phone: [facility] 05-01-2022 16:12-0400 Systolic blood pressure 132 mm[Hg] Alyssa Callow SALES LEAD.RETAIL SALES MERCHANDISER Work Phone: [facility] 03-05-2022 10:00-0400 Body temperature 97.2 [degF] Jaret King MD Work Phone: [facility] 03-05-2022 10:00-0400 Diastolic blood pressure 62 mm[Hg] Jaret King MD Work Phone: [facility] 03-05-2022 10:00-0400 Heart rate 88 /min Jaret King MD Work Phone: [facility] 03-05-2022 10:00-0400 Respiratory rate 20 /min Jaret King MD Work Phone: [facility] 03-05-2022 10:00-0400 SaO2% (BldA) [Mass fraction] 95 % Jaret King MD Work Phone: [facility] 03-05-2022 10:00-0400 Systolic blood pressure 122 mm[Hg] Jaret King MD Work Phone: [facility] 02-05-2022 08:11-0400 Body height 188 cm Pacc 1 Work Phone: [facility] 02-05-2022 08:11-0400 Body temperature 98.71 [degF] Pacc 1 Work Phone: [facility] 02-05-2022 08:11-0400 Body weight 174.18 kg Pacc 1 Work Phone: [facility] 02-05-2022 08:11-0400 Diastolic blood pressure 82 mm[Hg] Pacc 1 Work Phone: [facility] 02-05-2022 08:11-0400 Heart rate 114 /min Pacc 1 Work Phone: [facility] 02-05-2022 08:11-0400 Respiratory rate 16 /min Pacc 1 Work Phone: [facility] 02-05-2022 08:11-0400 SaO2% (BldA) [Mass fraction] 96 % Pacc 1 Work Phone: [facility] 02-05-2022 08:11-0400 Systolic blood pressure 140 mm[Hg] Pacc 1 Work Phone: [facility] 12-03-2021 08:48-0400 Body height 186 cm Roseanna Ross SALES LEAD.RETAIL SALES MERCHANDISER Work Phone: [facility] 12-03-2021 08:48-0400 Body weight 178.26 kg Roseanna Ross SALES LEAD.RETAIL SALES MERCHANDISER Work Phone: [facility] 12-03-2021 08:48-0400 Diastolic blood pressure 80 mm[Hg] Roseanna Ross SALES LEAD.RETAIL SALES MERCHANDISER Work Phone: [facility] 12-03-2021 08:48-0400 Heart rate 102 /min Roseanna Ross SALES LEAD.RETAIL SALES MERCHANDISER Work Phone: [facility] 12-03-2021 08:48-0400 SaO2% (BldA) [Mass fraction] 96 % Roseanna Ross SALES LEAD.RETAIL SALES MERCHANDISER Work Phone: [facility] 12-03-2021 08:48-0400 Systolic blood pressure 132 mm[Hg] Roseanna Ross SALES LEAD.RETAIL SALES MERCHANDISER Work Phone: [facility] 07-07-2017 11:27-0500 BMI (Body Mass Index) 43.74 kg/m2 [facility] Work Phone: 07-07-2017 11:27-0500 Height 190.5 cm [facility] Work Phone: 07-07-2017 11:27-0500 Weight 158.76 kg Anneliese Fraser [facility] Work Phone: Encounters Encounter Date Encounter Type Care Provider Facility Start: 05-05-2025 End: 05-05-2025 Telephone encounter Hector Currie MD Work Phone: [facility] [place] Comment on above: Orders Start: 04-21-2025 End: 04-21-2025 Office outpatient visit 25 minutes Sarah Herrmann SALES LEAD.HEALTH CARE SPECIALIST Work Phone: [facility] [place] Comment on above: Controlled type 2 di abetes mellitus without complication, without long-term current use of insulin (HCC) (Primary Dx); Primary hypertension; Class 3 severe obesity without serious comorbidity with body mass index (BMI) of 45.0 to 49.9 in adult, unspecified obesity type (HCC); Class 3 severe obesity with body mass index (BMI) of 45.0 to 49.9 in adult (HCC); DWIGHT (obstructive sleep apnea); Hyperlipidemia, unspecified hyperlipidemia type Start: 04-21-2025 End: 04-21-2025 ambulatory [facility] Facility:[facility] Start: 02-07-2025 End: 02-07-2025 Refill Hector Currie MD Work Phone: [facility] [place] Comment on above: Refill Request Start: 12-22-2024 End: 02-21-2025 Follow-up encounter Sarah Herrmann APRN.HEALTH CARE SPECIALIST Work Phone: [facility] [place] Start: 12-20-2024 End: 12-20-2024 ambulatory [facility] Facility:[facility] Start: 12-20-2024 End: 12-20-2024 Office outpatient visit 25 minutes Sarah Herrmann SALES LEAD.HEALTH CARE SPECIALIST Work Phone: [facility] [place] Comment on above: Primary hypertension (Primary Dx); Class 3 severe obesity due to excess calories with body mass index (BMI) of 45.0 to 49.9 in adult, unspecified whether serious comorbidity present; Controlled type 2 diabetes mellitus without complication, without long-term current use of insulin (HCC); Gastroesophageal reflux disease, unspecified whether esophagitis present; Class 3 severe obesity without serious comorbidity with body mass index (BMI) of 45.0 to 49.9 in adult, unspecified obesity type; Urinary incontinence, unspecified type; Obstructive sleep apnea Start: 12-20-2024 End: 12-20-2024 ambulatory HECTOR CURRIE Facility:[facility] Start: 11-30-2024 End: 11-30-[address] Hector Currie MD Work Phone: [facility] Work Phone: Start: 11-30-2024 End: 11-30-[address] Rachid Mary MD -Radiology, [facility] Work Phone: Start: 11-30-2024 End: 11-30-2024 ambulatory Rachid Mary Facility:[facility] Start: 11-14-2024 End: 11-14-2024 Refill Hector Currie MD Work Phone: [address] [place] [address] Comment on above: Refill Request Start: 10-11-2024 End: 12-11-2024 Follow-up encounter Celso Smith APRN.RETAIL SALES MERCHANDISER Work Phone: [facility] Start: 10-10-2024 End: 10-10-2024 ambulatory HECTOR CURRIE Facility:[facility] Start: 10-10-2024 End: 10-10-2024 Patient encounter procedure Brandee Mcmanus APRN.CNP Work Phone: [facility] Comment on above: Flu-like symptoms (P rimary Dx); Acute upper respiratory infection, unspecified; Influenza A Start: 08-15-2024 End: 08-18-2024 Telephone encounter Hector Currie MD Work Phone: [facility] [place] Comment on above: Patient Request Start: 08-15-2024 End: 08-15-2024 ambulatory HECTOR CURRIE Facility:[facility] Start: 08-15-2024 End: 08-15-2024 Office outpatient visit 25 minutes Hector Currie MD Work Phone: [facility] [place] Comment on above: Controlled type 2 di abetes mellitus without complication, without long-term current use of insulin (HCC) (Primary Dx); Primary hypertension; DWIGHT on CPAP; Gastroesophageal reflux disease, unspecified whether esophagitis present; Class 3 severe obesity due to excess calories with body mass index (BMI) of 45.0 to 49.9 in adult, unspecified whether serious comorbidity present (HCC); Encounter for screening examination for other mental health and behavioral disorders Start: 08-15-2024 End: 08-15-2024 ambulatory HECTOR CURRIE Facility:[facility] Start: 08-09-2024 End: 08-10-2024 Refill Liudmila Breaux APRN.CNP Work Phone: [facility] [place] Comment on above: Refill Request Start: 07-30-2024 End: 07-30-2024 [facility] Start: 07-28-2024 End: 08-01-2024 Refill Sarah Herrmann APRN.CNS Work Phone: [facility] Comment on above: Refill Request Start: 07-12-2024 End: 07-13-2024 Refill Hector Currie MD Work Phone: [facility] Comment on above: Refill Request Start: 07-04-2024 End: 07-04-2024 Telephone encounter Liudmila Breaux APRN.RETAIL SALES MERCHANDISER Work Phone: [facility] Comment on above: Results - Sleep Stud y Start: 06-29-2024 End: 06-29-2024 ambulatory Hector Currie Facility:[facility] Start: 06-17-2024 End: 06-20-2024 Telephone encounter Hector Currie MD Work Phone: [facility] [place] Comment on above: Electronic Communica tion Start: 06-14-2024 End: 06-14-2024 ambulatory LIUDMILA BREAUX Facility:[facility] Start: 06-14-2024 End: 06-14-2024 Patient encounter procedure Liudmila Breaux RETAIL SALES MERCHANDISER Work Phone: [facility] [place] Comment on above: DWIGHT (obstructive sle ep apnea) (Primary Dx); Class 3 severe obesity due to excess calories with body mass index (BMI) of 40.0 to 44.9 in adult, unspecified whether serious comorbidity present (HCC) Start: 05-09-2024 End: 05-09-2024 Patient encounter procedure Rosalinda CARR Work Phone: [facility] Comment on above: Sore throat (Primary Dx) Start: 04-05-2024 End: 04-05-2024 Office outpatient visit 25 minutes Hector Currie MD Work Phone: [facility] [place] Comment on above: Controlled type 2 di abetes mellitus without complication, without long-term current use of insulin (HCC) (Primary Dx); Class 3 severe obesity without serious comorbidity with body mass index (BMI) of 45.0 to 49.9 in adult, unspecified obesity type (HCC); Primary hypertension; Rash; DWIHGT (obstructive sleep apnea) Start: 03-26-2024 Transcribe Orders Aidee toro Work Phone: [facility] Comment on above: On 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 drug th 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 (Primary Dx) Start: 02-08-2024 ambulatory Hector montesinos MD Work Phone: [facility] [place] Comment on above: Trulicity Start: 12-01-2023 End: 12-01-2023 Office outpatient visit 25 minutes Hector Currie MD Work Phone: [facility] [place] Comment on above: Controlled type 2 di abetes mellitus without complication, without long-term current use of insulin (HCC) (Primary Dx); Rash; Class 3 severe obesity due to excess calories with body mass index (BMI) of 45.0 to 49.9 in adult, unspecified whether serious comorbidity present (HCC); History of RSV infection Start: 11-06-2023 End: 11-06-2023 Subsequent hospital visit by physician [facility] [place] Work Phone: Radiology Comment on above: URI, acute [J06.9] Start: 11-06-2023 End: 11-06-2023 Patient encounter procedure Anneliese Francisco SALES LEAD.RETAIL SALES MERCHANDISER Work Phone: [facility] Comment on above: URI, acute (Primary Dx); Acute cough Start: 10-23-2023 ambulatory Carmelita Thomas MARTY.RETAIL SALES MERCHANDISER Work Phone: General Surgery Comment on above: Trulicity Start: 10-22-2023 End: 10-22-2023 ambulatory [facility] Work Phone: Start: 10-22-2023 End: 10-22-2023 Patient encounter procedure [facility] Work Phone: Start: 10-12-2023 Telephone encounter Carmelita simpson MARTY.RETAIL SALES MERCHANDISER Work Phone: General Surgery Start: 09-28-2023 End: 09-28-2023 ambulatory Carmelita Simpsonmiantatiana MARTY.RETAIL SALES MERCHANDISER Work Phone: General Surgery Comment on above: Class 3 severe obesi ty without serious comorbidity with body mass index (BMI) of 45.0 to 49.9 in adult, unspecified obesity type (HCC) (Primary Dx); Controlled type 2 diabetes mellitus without complication, without long-term current use of insulin (HCC) Start: 09-28-2023 End: 09-28-2023 Telemedicine consultation with patient Carmelita Thomas APRN.RETAIL SALES MERCHANDISER Work Phone: [facility] Start: 09-16-2023 Telephone encounter Hector willis MD Work Phone: [facility] [place] Comment on above: Insurance Authorizat ion Start: 08-10-2023 End: 08-10-2023 ambulatory [facility] [facility] Work Phone: Start: 08-10-2023 End: 08-10-2023 Patient encounter procedure [facility] Work Phone: Start: 07-15-2023 Telephone encounter Hector willis MD Work Phone: [facility] [place] Comment on above: Patient to resume PA P Start: 05-23-2023 End: 05-23-2023 Patient encounter procedure Sreekanth Ackerman MD Work Phone: [facility] Comment on above: Toothache (Primary D x) Start: 02-13-2023 End: 02-13-2023 Subsequent hospital visit by physician Xr [facility] [place] Work Phone: Radiology Comment on above: Foot pain, left [M79 .672] Start: 02-13-2023 End: 02-13-2023 Patient encounter procedure Celso Smith APRN.RETAIL SALES MERCHANDISER Work Phone: [facility] Comment on above: Acute left ankle tej n (Primary Dx); Foot pain, left Start: 12-26-2022 Telephone encounter Hector willis MD Work Phone: [facility] [place] Comment on above: [employer] for [place] dropped off Start: 12-26-2022 End: 12-26-2022 ambulatory Carmelita Thomas APRN.RETAIL SALES MERCHANDISER Work Phone: General Surgery Comment on above: Class 3 severe obesi ty without serious comorbidity with body mass index (BMI) of 45.0 to 49.9 in adult, unspecified obesity type (HCC) (Primary Dx); Prediabetes Start: 12-26-2022 End: 12-26-2022 Telemedicine consultation with patient Carmelita Thomas APRN.RETAIL SALES MERCHANDISER Work Phone: [facility] Start: 12-17-2022 End: 12-17-2022 Subsequent hospital visit by physician X[facility] [place] Work Phone: Radiology Comment on above: Open wound of left f oot excluding toes without complication, initial encounter [S91.302A] Start: 12-17-2022 End: 12-17-2022 Patient encounter procedure Madelaine Mancuso PA-C Work Phone: [facility] Comment on above: Puncture wound of le ft foot with foreign body, initial encounter (Primary Dx) Start: 12-04-2022 Refill Hector montesinos MD Work Phone: [facility] [place] Comment on above: Refill Request Start: 11-18-2022 Telephone encounter Madelaine nova PA-C Work Phone: [facility] Comment on above: Results Start: 11-17-2022 End: 11-17-2022 Patient encounter procedure Sreekanth Ackerman MD Work Phone: [facility] Comment on above: URI, acute (Primary Dx); Exposure to confirmed case of COVID-19 Start: 11-04-2022 End: 11-04-2022 Office outpatient visit 25 minutes Hector Currie MD Work Phone: [facility] [place] Comment on above: Primary hypertension (Primary Dx); Class 3 severe obesity without serious comorbidity with body mass index (BMI) of 45.0 to 49.9 in adult, unspecified obesity type (HCC); DWIGHT (obstructive sleep apnea); Prediabetes; Encounter for immunization; IFG (impaired fasting glucose) Start: 10-03-2022 End: 10-03-2022 ambulatory Carmelita Thomas APRN.RETAIL SALES MERCHANDISER Work Phone: General Surgery Comment on above: Class 3 severe obesi ty without serious comorbidity with body mass index (BMI) of 45.0 to 49.9 in adult, unspecified obesity type (HCC) (Primary Dx); Prediabetes; Primary hypertension; DWIGHT (obstructive sleep apnea); Gastroesophageal reflux disease, unspecified whether esophagitis present Start: 10-03-2022 End: 10-03-2022 Telemedicine consultation with patient Carmelita Thomas APRN.CNP Work Phone: [facility] Start: 09-26-2022 End: 09-26-2022 Patient encounter procedure Sarah Herrmann APRN.DOLORES Work Phone: [facility] [place] Comment on above: Excessive cerumen in ear canal, right (Primary Dx); Impacted cerumen of left ear Start: 09-17-2022 End: 09-17-2022 Patient encounter procedure Liudmila Breaux APRN.RETAIL SALES MERCHANDISER Work Phone: [facility] [place] Comment on above: Gastroesophageal ref lux disease, unspecified whether esophagitis present (Primary Dx); Atypical chest pain; Class 3 severe obesity due to excess calories with body mass index (BMI) of 45.0 to 49.9 in adult, unspecified whether serious comorbidity present (HCC) Start: 09-16-2022 End: 09-16-2022 Emergency department patient visit [facility] Start: 07-25-2022 Telephone encounter Sarah Bromamadou blackwell SALES LEAD.HEALTH CARE SPECIALIST Work Phone: [facility] [place] Comment on above: Results Start: 07-22-2022 End: 07-22-2022 Office outpatient visit 25 minutes Sarahjoanne Herrmann SALES LEAD.HEALTH CARE SPECIALIST Work Phone: [facility] [place] Comment on above: Essential hypertensi on (Primary Dx); Encounter for immunization; Reactive depression; Attention deficit disorder (ADD) without hyperactivity; 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; DWIGHT (obstructive sleep apnea); Gastroesophageal reflux disease, unspecified whether esophagitis present; Class 3 severe obesity without serious comorbidity with body mass index (BMI) of 45.0 to 49.9 in adult, unspecified obesity type (HCC); IFG (impaired fasting glucose); Hypertension, unspecified type; Spinal stenosis of lumbar region with neurogenic claudication; Mild intermittent asthma without complication; Weight gain; Primary hypertension Start: 06-14-2022 Telephone encounter Hector willis MD Work Phone: [facility] [place] Comment on above: Lab Orders Start: 05-13-2022 End: 05-13-2022 Office outpatient visit 25 minutes Hector [place] MD Work Phone: [facility] [place] Comment on above: BAJWA (dyspnea on exer tion) (Primary Dx); Essential hypertension; Class 3 severe obesity due to excess calories with body mass index (BMI) of 45.0 to 49.9 in adult, unspecified whether serious comorbidity present (HCC); Mild intermittent asthma without complication; Encounter for immunization; Reactive depression Start: 05-01-2022 End: 05-01-2022 Subsequent hospital visit by physician Ros[facility] [place] Work Phone: Radiology Comment on above: Foot pain, right [M7 9.671] Start: 05-01-2022 End: 05-01-2022 Patient encounter procedure Alyssa Hernandez APRN.RETAIL SALES MERCHANDISER Work Phone: [facility] Comment on above: Foot pain, right (Pr imary Dx) Start: 04-29-2022 Telephone encounter Ligia Older SALES LEAD.RETAIL SALES MERCHANDISER Work Phone: [facility] [place] Comment on above: Results Start: 04-25-2022 Orders Only Ligia Older SALES LEAD.RETAIL SALES MERCHANDISER Work Phone: [facility] [place] Comment on above: Bilateral lower extr emity edema (Primary Dx); SOB (shortness of breath) on exertion Start: 04-23-2022 Telephone encounter Ligia Older SALES LEAD.RETAIL SALES MERCHANDISER Work Phone: [facility] [place] Comment on above: Results Start: 04-23-2022 End: 04-23-2022 ambulatory [facility] Work Phone: Start: 04-23-2022 End: 04-23-2022 Patient encounter procedure [facility], Specimen Start: 04-23-2022 End: 04-23-2022 Subsequent hospital visit by physician Ros[facility] Work Phone: Radiology Comment on above: SOB (shortness of br eath) on exertion [R06.02] Start: 03-10-2022 Telephone encounter Roseanna Ross APRN.RETAIL SALES MERCHANDISER Work Phone: Gastroenterology Comment on above: Results Start: 03-05-2022 End: 03-05-2022 Subsequent hospital visit by physician Jaret King MD Work Phone: [facility] End[facility] Comment on above: Family history of co nelia cancer [Z80.0] Start: 02-10-2022 Refill Roseanna Ross APRN.RETAIL SALES MERCHANDISER Work Phone: Gastroenterology Comment on above: Refill Request Start: 02-05-2022 End: 02-05-2022 [facility] 1 Work Phone: Pre Anesthesia Comment on above: Pre-operative examin ation (Primary Dx); Colon cancer screening; Family history of colon cancer; Mild intermittent asthma without complication; Attention deficit disorder (ADD) without hyperactivity; Essential hypertension; Hereditary and idiopathic peripheral neuropathy; 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; DWIGHT (obstructive sleep apnea); Reactive depression; S/P lumbar laminectomy; Gastroesophageal reflux disease, unspecified whether esophagitis present; Prediabetes; Obesity, Class III, BMI 40-49.9 (morbid obesity) (HCC) Start: 02-05-2022 End: 02-05-2022 Preprocedural examination done [facility] 1 Work Phone: Pre Anesthesia Start: 12-13-2021 End: 12-13-2021 ambulatory Pavan Hampton [facility] Comment on above: Congenital pes planu s, unspecified laterality (Primary Dx) Start: 12-03-2021 End: 12-03-2021 Patient encounter procedure Roseanna Ross SALES LEAD.RETAIL SALES MERCHANDISER Work Phone: Gastroenterology Comment on above: Family history of co nelia cancer in father (Primary Dx); Family history of colon cancer; Colon cancer screening; Dysphagia, unspecified type Procedures Date Procedure Procedure Detail Performing Clinician Start: 11-30-2024 X-ray of lumbar spine, two or three views Dr. Hector [facility] MD Work Phone: Start: 10-10-2024 INFLUENZA A&B MOLECULAR (POC) Brandee Lundberg SALES LEAD.RETAIL SALES MERCHANDISER Work Phone: Start: 05-09-2024 STREP A MOLECULAR (POC) Rosalinda CARR Work Phone: Start: 11-06-2023 COVID & INFLUENZA A/B & RSV NAAT, ROUTINE Anneliese Francisco SALES LEAD.RETAIL SALES MERCHANDISER Work Phone: Start: 11-06-2023 Radiologic exam chest 2 views Anneliese mehta SALES LEAD.RETAIL SALES MERCHANDISER Work Phone: Start: 02-13-2023 Radex ankle complete minimum 3 views Celso Smith SALES LEAD.RETAIL SALES MERCHANDISER Work Phone: Start: 12-17-2022 Radex foot complete minimum 3 views Madelaine Mancuso PA-C Work Phone: Start: 09-16-2022 Plain chest X-ray Start: 05-13-2022 INFLUENZA VACCINE QUADRIVALENT 6 MO - 64 YRS IM Hector Currie MD Work Phone: Start: 05-01-2022 Radex foot complete minimum 3 views Francheska Hernandez SALES LEAD.RETAIL SALES MERCHANDISER Work Phone: Start: 04-23-2022 Radiologic exam chest 2 views Ligia Dominguez hberger SALES LEAD.RETAIL SALES MERCHANDISER Work Phone: Start: 03-05-2022 Colon ca scrn not hi rsk ind Roseanna Ross SALES LEAD.RETAIL SALES MERCHANDISER Work Phone: Start: 03-05-2022 Esophagogastroduodenoscopy transoral diagnostic Roseanna Ross SALES LEAD.RETAIL SALES MERCHANDISER Work Phone: Plan of Treatment Date Care Activity Detail Author Start: 12-17-2032 Urine microalbumin profile [facility] Start: 04-21-2026 Annual PCP Team Chronic Disease Visit Annual PCP Team Chronic Disease Visit [facility] Start: 04-21-2026 Diabetic foot examination Diabetic Foot Exam [facility] Start: 04-21-2026 Glaucoma screening Dilated Retinal Exam [facility] Start: 12-20-2025 BP Controlled (<130/80) BP Controlled (<130/80) [facility] inic Start: 12-20-2025 Diabetic foot examination Diabetic Foot Exam [facility] Start: 12-20-2025 Hepatitis B surface antibody level LDL Cholesterol [facility] Start: 10-21-2025 Hemoglobin A1c measurement HbA1C [facility] Start: 08-16-2025 End: 08-16-2025 Patient encounter procedure 08/16/2025 3:00 PM EST Office Visit [facility] [place] [address] [place] [id number] Hector Currie MD [address] [id number] 4 month follow up [facility] [place] Comment on above: 4 month follow up Start: 08-15-2025 Annual PCP Team Chronic Disease Visit Annual PCP Team Chronic Disease Visit [facility] Start: 08-15-2025 Anxiety Screening Anxiety Screening [facility] Start: 08-15-2025 BP Controlled (<130/80) BP Controlled (<130/80) [facility] Start: 08-15-2025 Hepatitis B screening Urine Albumin:Creatinine Ratio [facility] Start: 07-30-2025 Hepatitis B surface antibody level LDL Cholesterol [facility] Start: 06-21-2025 Hemoglobin A1c measurement HbA1C [facility] Start: 06-14-2025 Annual PCP Team Chronic Disease Visit Annual PCP Team Chronic Disease Visit [facility] Start: 06-14-2025 BP Controlled (<130/80) BP Controlled (<130/80) [facility] Start: 06-14-2025 Covid-19 Vaccine () Covid-19 Vaccine () [facility] Comment on above: Postponed from 04/24/2024 (Declined at t his time) Start: 05-09-2025 BP Controlled (<130/80) BP Controlled (<130/80) [facility] Start: 04-24-2025 Influenza vaccination Influ[facility] Vaccine (#[facility] Start: 04-21-2025 End: 04-21-2025 Patient encounter procedure 04/21/2025 3:40 PM EDT Office Visit [facility] [address] [place], [place] [id number] Hector Currie MD [address] [place] [address] 4 month follow up [facility] [place] Comment on above: 4 month follow up Start: 04-21-2025 End: 07-21-2025 Hemoglobin A1c in Blood [facility] Work Phone: Comment on above: Expected: 04/21/2025, Expires: Start: 04-05-2025 Annual PCP Team Chronic Disease Visit Annual PCP Team Chronic Disease Visit [facility] Start: 04-05-2025 BP Controlled (<130/80) BP Controlled (<130/80) [facility] Start: 03-26-2025 Hepatitis B surface antibody level LDL Cholesterol [facility] Start: 02-13-2025 Glaucoma screening Dilated Retinal Exam [facility] Comment on above: Postponed from 11/07/2023 (Declined at t his time) Start: 01-28-2025 Hemoglobin A1c measurement HbA1C [facility] Start: 12-20-2024 End: 12-20-2024 Patient encounter procedure [facility] [place] Comment on above: 4 month follow up Start: 12-20-2024 End: 03-21-2025 LIPID PANEL, NONFASTING [facility] Work Phone: Comment on above: Expected: 12/20/2024, Expires: Start: 12-14-2024 Diabetic foot examination Diabetic Foot Exam [facility] Comment on above: Postponed from 2002 (Declined at t his time) Start: 11-30-2024 Annual PCP Team Chronic Disease Visit Annual PCP Team Chronic Disease Visit [facility] Start: 11-30-2024 BP Controlled (<130/80) BP Controlled (<130/80) [facility] in Start: 11-22-2024 End: 02-21-2025 CBC panel - Blood by Automated count COMPLETE BLOOD COUNT Lab Routine Controlled type 2 diabetes mellitus without complication, without long-term current use of insulin (HCC) Primary hypertension Expected: 11/22/2024 (Approximate), Expires: 02/21/[address] [facility] Comment on above: Expected: 11/22/2024 (Approximate), Expi res: 02/21/2025 Start: 11-22-2024 End: 02-21-2025 Comprehensive metabolic 2000 panel - Serum or Plasma COMPREHENSIVE METABOLIC PANEL Lab Routine Controlled type 2 diabetes mellitus without complication, without long-term current use of insulin (HCC) Primary hypertension Expected: 11/22/2024 (Approximate), Expires: 02/21/[address] [facility] Comment on above: Expected: 11/22/2024 (Approximate), Expi res: 02/21/2025 Start: 11-22-2024 End: 02-21-2025 Hemoglobin A1c in Blood HEMOGLOBIN A1C Lab Routine Controlled type 2 diabetes mellitus without complication, without long-term current use of insulin (HCC) Expected: 11/22/2024 (Approximate), Expires: 02/21/[address] [facility] Comment on above: Expected: 11/22/2024 (Approximate), Expi res: 02/21/2025 Start: 11-22-2024 End: 02-21-2025 Lipid 1996 panel - Serum or Plasma LIPID PANEL BASIC Lab Routine Controlled type 2 diabetes mellitus without complication, without long-term current use of insulin (HCC) Primary hypertension Expected: 11/22/2024 (Approximate), Expires: 02/21/[address] [facility] Comment on above: Expected: 11/22/2024 (Approximate), Expi res: 02/21/2025 Start: 11-05-2024 BP Controlled (<130/80) BP Controlled (<130/80) [facility] Start: 09-26-2024 Hemoglobin A1c measurement HbA1C [facility] Start: 08-15-2024 End: 11-14-2024 Microalbumin/Creatinine [Mass Ratio] in Urine [facility] Work Phone: Comment on above: Expected: 08/15/2024, Expires: Start: 08-15-2024 End: 08-15-2024 Patient encounter procedure 08/15/2024 8:20 AM EST Office Visit [facility] [address] [place] [address] Hector Currie MD [address] [place] [address] 4 month follow up [facility] [place] Comment on above: 4 month follow up Start: 07-27-2024 BP Controlled (<130/80) BP Controlled (<130/80) [facility] Start: 07-27-2024 Hepatitis B surface antibody level LDL Cholesterol [facility] Start: 07-13-2024 Annual PCP Team Chronic Disease Visit Annual PCP Team Chronic Disease Visit [facility] Start: 07-13-2024 BP Controlled (<130/80) BP Controlled (<130/80) [facility] Start: 07-13-2024 Covid-19 Vaccine () Covid-19 Vaccine () [facility] Comment on above: Postponed from 04/24/2023 (Declined at t his time) Start: 07-06-2024 End: 10-05-2024 CBC panel - Blood by Automated count COMPLETE BLOOD COUNT Lab Routine Controlled type 2 diabetes mellitus without complication, without long-term current use of insulin (HCC) Primary hypertension Expected: 07/06/2024 (Approximate), Expires: 10/05/[address] [facility] Comment on above: Expected: 07/06/2024 (Approximate), Expi res: 10/05/2024 Start: 07-06-2024 End: 10-05-2024 Comprehensive metabolic 2000 panel - Serum or Plasma COMPREHENSIVE METABOLIC PANEL Lab Routine Controlled type 2 diabetes mellitus without complication, without long-term current use of insulin (HCC) Primary hypertension Expected: 07/06/2024 (Approximate), Expires: 10/05/[address] [facility] Comment on above: Expected: 07/06/2024 (Approximate), Expi res: 10/05/2024 Start: 07-06-2024 End: 10-05-2024 Hemoglobin A1c in Blood HEMOGLOBIN A1C Lab Routine Controlled type 2 diabetes mellitus without complication, without long-term current use of insulin (HCC) Expected: 07/06/2024 (Approximate), Expires: 10/05/2024 [facility] Work Phone: Comment on above: Expected: 07/06/2024 (Approximate), Expi res: 10/05/2024 Start: 07-06-2024 End: 10-05-2024 Lipid 1996 panel - Serum or Plasma LIPID PANEL BASIC Lab Routine Controlled type 2 diabetes mellitus without complication, without long-term current use of insulin (HCC) Primary hypertension Expected: 07/06/2024 (Approximate), Expires: 10/05/[address] [facility] Comment on above: Expected: 07/06/2024 (Approximate), Expi res: 10/05/2024 Start: 07-06-2024 End: 10-05-2024 Microalbumin/Creatinine [Mass Ratio] in Urine ALBUMIN/CREATININE RATIO, URINE Lab Routine Controlled type 2 diabetes mellitus without complication, without long-term current use of insulin (HCC) Expected: 07/06/2024 (Approximate), Expires: 10/05/[address] [facility] Comment on above: Expected: 07/06/2024 (Approximate), Expi res: 10/05/2024 Start: 04-24-2024 Covid-19 Vaccine () Covid-19 Vaccine () [facility] Start: 04-24-2024 Covid-19 Vaccine () Covid-19 Vaccine () [facility] Start: 04-24-2024 Influenza vaccination Influenza Vaccine (#1) [facility] Start: 04-05-2024 End: 04-05-2024 Patient encounter procedure 04/05/2024 2:40 PM EDT Office Visit [facility] [place] [address] [place], [place] [address] Hector Currie MD [address] [place] [address] 4 month follow up [facility] [place] Comment on above: 4 month follow up Start: 03-26-2024 End: 06-25-2024 Ammonia [Moles/volume] in Plasma [facility] Comment on above: Expected: 03/26/2024, Expires: Start: 03-26-2024 End: 06-25-2024 CBC panel - Blood by Automated count [facility] Comment on above: Expected: 03/26/2024, Expires: Start: 03-26-2024 End: 06-25-2024 Comprehensive metabolic 2000 panel - Serum or Plasma [facility] Work Phone: Comment on above: Expected: 03/26/2024, Expires: Start: 03-26-2024 End: 06-25-2024 Hemoglobin A1c in Blood [facility] Comment on above: Expected: 03/26/2024, Expires: 4 Start: 03-26-2024 End: 06-25-2024 Lipid 1996 panel - Serum or Plasma [facility] Comment on above: Expected: 03/26/2024, Expires: Start: 03-26-2024 End: 06-25-2024 Prolactin [Mass/volume] in Serum or Plasma [facility] Comment on above: Expected: 03/26/2024, Expires: Start: 03-26-2024 End: 06-25-2024 Valproate [Mass/volume] in Serum or Plasma [facility] Comment on above: Expected: 03/26/2024, Expires: 4 Start: 02-14-2024 BP CONTROLLED (<130/80) BP CONTROLLED (<130/80) [facility] Start: 01-26-2024 Hemoglobin A1c measurement HbA1C [facility] Start: 12-18-2023 BP CONTROLLED (<130/80) BP CONTROLLED (<130/80) [facility] Start: 12-01-2023 End: 03-01-2024 ALBUMIN/CREAT RATIO RND UR ALBUMIN/CREAT RATIO RND UR Lab Routine Controlled type 2 diabetes mellitus without complication, without long-term current use of insulin (HCC) Expected: 12/01/2023, Expires: 03/01/2024 [facility] Work Phone: Comment on above: Expected: 12/01/2023, Expires: Start: 11-07-2023 Glaucoma screening Dilated Retinal Exam [facility] Start: 11-05-2023 ANNUAL PCP TEAM CHRONIC DISEASE VISIT ANNUAL PCP TEAM CHRONIC DISEASE VISIT [facility] Start: 09-17-2023 ANNUAL PCP TEAM CHRONIC DISEASE VISIT ANNUAL PCP TEAM CHRONIC DISEASE VISIT [facility] Start: 07-22-2023 COVID-19 VACCINE (4 - Booster for Pfizer series) COVID-19 VACCINE (4 - Booster for Pfizer series) [facility] Comment on above: Postponed from 11/04/2021 (Declined at t his time) Start: 07-22-2023 Covid-19 Vaccine (4 - Pfizer series) Covid-19 Vaccine (4 - Pfizer series) [facility] Comment on above: Postponed from 11/04/2021 (Declined at t his time) Start: 05-13-2023 ANNUAL PCP TEAM CHRONIC DISEASE VISIT ANNUAL PCP TEAM CHRONIC DISEASE VISIT [facility] Start: 05-13-2023 BP CONTROLLED (<130/80) BP CONTROLLED (<130/80) [facility] Start: 04-24-2023 Influenza vaccination Influenza Vaccine (#1) [facility] Start: 04-23-2023 ANNUAL PCP TEAM CHRONIC DISEASE VISIT ANNUAL PCP TEAM CHRONIC DISEASE VISIT [facility] Start: 01-16-2023 End: 07-20-2023 CBC W Auto Differential panel - Blood CBC + DIFF Lab Routine Essential hypertension Gastroesophageal reflux disease, unspecified whether esophagitis present Expected: 01/16/2023 (Approximate), Expires: 07/20/2023 [facility] Work Phone: Comment on above: Expected: 01/16/2023 (Approximate), Expi res: 07/20/2023 Start: 01-16-2023 End: 07-20-2023 Comprehensive metabolic 2000 panel - Serum or Plasma COMP METABOLIC PANEL Lab Routine Essential hypertension Expected: 01/16/2023 (Approximate), Expires: 07/20/2023 [facility] Work Phone: Comment on above: Expected: 01/16/2023 (Approximate), Expi res: 07/20/2023 Start: 01-16-2023 End: 07-20-2023 Hemoglobin A1c in Blood HGB A1C Lab Routine IFG (impaired fasting glucose) Expected: 01/16/2023 (Approximate), Expires: 07/20/2023 [facility] Work Phone: Comment on above: Expected: 01/16/2023 (Approximate), Expi res: 07/20/2023 Start: 01-16-2023 End: 07-20-2023 Tdap vaccine 7 yrs/> im TDAP VACCINE AGE 7+ IM Immunization/Injection Routine Encounter for immunization Expected: 01/16/2023 (Approximate), Expires: 07/20/2023 [facility] Work Phone: Comment on above: Expected: 01/16/2023 (Approximate), Expi res: 07/20/2023 Start: 10-14-2022 ANNUAL PCP TEAM CHRONIC DISEASE VISIT ANNUAL PCP TEAM CHRONIC DISEASE VISIT [facility] Start: 08-25-2022 ONE PNEUMOVAX PRIOR TO AGE 65 ONE PNEUMOVAX PRIOR TO AGE [address] [facility] Comment on above: Postponed from 2011 (Declined at t his time) Start: 08-25-2022 PNEUMOCOCCAL (1 - PCV) PNEUMOCOCCAL (1 - PCV) [facility] Comment on above: Postponed from 1998 (Declined at t his time) Start: 07-23-2022 End: 09-22-2022 CBC panel - Blood by Automated count CBC Lab Routine Essential hypertension Encounter for long-term current use of medication Expected: 07/23/2022, Expires: 09/22/2022 [facility] Work Phone: Comment on above: Expected: 07/23/2022, Expires: 3 Start: 07-23-2022 End: 09-22-2022 Comprehensive metabolic 2000 panel - Serum or Plasma COMP METABOLIC PANEL Lab Routine Essential hypertension IFG (impaired fasting glucose) Encounter for long-term current use of medication Expected: 07/23/2022, Expires: 09/22/2022 [facility] Work Phone: Comment on above: Expected: 07/23/2022, Expires: 3 Start: 07-23-2022 End: 09-22-2022 Hemoglobin A1c in Blood HGB A1C Lab Routine IFG (impaired fasting glucose) Encounter for long-term current use of medication Expected: 07/23/2022, Expires: 09/22/2022 [facility] Work Phone: Comment on above: Expected: 07/23/2022, Expires: 3 Start: 07-23-2022 End: 09-22-2022 Lipid 1996 panel - Serum or Plasma LIPID PANEL BASIC Lab Routine Elevated LDL cholesterol level Encounter for long-term current use of medication Expected: 07/23/2022, Expires: 09/22/2022 [facility] Work Phone: Comment on above: Expected: 07/23/2022, Expires: 3 Start: 07-22-2022 End: 09-21-2022 Thyrotropin [Units/volume] in Serum or Plasma [facility] Work Phone: Comment on above: Expected: 07/22/2022, Expires: 3 Start: 07-14-2022 Urine microalbumin profile DTAP,TDAP,TD (7 - Td or Tdap) [facility] Start: 04-25-2022 End: 06-25-2022 Natriuretic peptide.B prohormone N-Terminal [Mass/volume] in Serum or Plasma [facility] Work Phone: Comment on above: Expected: 04/25/2022, Expires: 2 Start: 04-24-2022 Influenza vaccination INFLUENZA (#1) [facility] Start: 11-06-2021 BP CONTROLLED (<130/80) BP CONTROLLED (<130/80) [facility] Start: 11-04-2021 COVID-19 VACCINE (4 - Booster for Pfizer series) COVID-19 VACCINE (4 - Booster for Pfizer series) [facility] Start: 05-15-2021 ANNUAL PCP TEAM CHRONIC DISEASE VISIT ANNUAL PCP TEAM CHRONIC DISEASE VISIT [facility] Start: 07-07-2017 End: 07-07-2017 Radex spine lumbscrl compl w/bending views min 6 X-Ray, Spine, Lumbar, complete with bending views [facility] Work Phone: Start: 07-07-2017 End: 07-07-2017 Appointment Appointment [facility] Work Phone: Start: 04-24-2012 Medicare Annual Wellness Visit Medicare Annual Wellness Visit [facility] Start: 2010 Anxiety Screening Anxiety Screening [facility] Start: 2002 Diabetic foot examination Diabetic Foot Exam [facility] Start: 2002 Hepatitis B screening Urine Albumin:Creatinine Ratio [facility] Start: 1998 PNEUMOCOCCAL (1 - PCV) PNEUMOCOCCAL (1 - PCV) [facility] COVID & INFLUENZA A/ B & RSV PCR, ROUTINE COVID & INFLUENZA A/B & RSV PCR, ROUTINE Microbiology Routine Flu-like symptoms Acute upper respiratory infection, unspecified 10/10/2024 11:33 AM EST [facility] Work Phone: End: 04-29-2023 Echocardiography ECHO Cardiology Routine SOB (shortness of breath) on exertion 1 Occurrences starting 04/29/2022 until 04/29/2023 [facility] Work Phone: Comment on above: 1 Occurrences starting 04/29/2022 until 04/29/2023 End: 12-03-2022 EGD DIAGNOSTIC EGD DIAGNOSTIC Endoscopy Routine Dysphagia, unspecified type 1 Occurrences starting 12/03/2021 until 12/03/2022 [facility] Work Phone: Comment on above: 1 Occurrences starting 12/03/2021 until 12/03/2022 End: 07-20-2025 PAP TITRATION PSG (CPAP, BIPAP, ASV) PAP TITRATION PSG (CPAP, BIPAP, ASV) Procedures Routine DWIGHT (obstructive sleep apnea) 1 Occurrences starting 06/20/2024 until 07/20/[address] [facility] Comment on above: 1 Occurrences starting 06/20/2024 until 07/20/2025 Patient Education ED GERD (Adult) [facility] Work Phone: Patient referral [facility] Work Phone: End: 06-20-2025 Polysomnogram POLYSOMNOGRAM (PSG) Procedures Routine DWIGHT (obstructive sleep apnea) 1 Occurrences starting 06/20/2024 until 06/20/2025 [facility] Work Phone: Comment on above: 1 Occurrences starting 06/20/2024 until 06/20/2025 SARS-CoV-2 (COVID-19 ) RNA [Presence] in Respiratory specimen by EVELIN with probe detection 2019 CORONAVIRUS Microbiology Routine URI, acute Exposure to confirmed case of COVID-19 11/17/2022 6:03 PM EDT [facility] Work Phone: End: 12-03-2022 Screening colonoscopy COLONOSCOPY SCREENING Endoscopy Routine Family history of colon cancer Colon cancer screening Family history of colon cancer in father 1 Occurrences starting 12/03/2021 until 12/03/2022 [facility] Work Phone: Comment on above: 1 Occurrences starting 12/03/2021 until 12/03/2022 SURGICAL PATHOLOGY [facility] Work Phone: Comment on above: Release Upon Ordering for 1 Occurrences starting 03/05/2022, 1 completed [facility] Immunizations Immunization Date Immunization Notes Care Provider Piero trujillo 05-25-2024 influenza, seasonal, injectable, preservative free Liudmila Breaux SALES LEAD.RETAIL SALES MERCHANDISER Work Phone: [facility] 05-25-2024 influenza virus vaccine, unspecified formulation Saarh Herrmann SALES LEAD.HEALTH CARE SPECIALIST Work Phone: [facility] 07-13-2023 influenza, injectabl e, quadrivalent, contains preservative Hector Currie MD Work Phone: [facility] 07-13-2023 influenza virus vaccine, unspecified formulation Vera Auraeika Work Phone: [facility] 12-17-2022 tetanus toxoid, redu lacy diphtheria toxoid, and acellular pertussis vaccine, adsorbed Madelaine Mancuso PA-C Work Phone: [facility] 11-04-2022 pneumococcal Conjuga te, unspecified formulation Hector Currie MD Work Phone: [facility] Work Phone: 11-04-2022 pneumococcal (PCV20) vaccine, 20 valent (PREVNAR 20) Sreekanth Ackerman MD Work Phone: [facility] 05-13-2022 influenza, injectabl e, quadrivalent, contains preservative Hector Currie MD Work Phone: [facility] 05-13-2022 influenza virus vaccine, unspecified formulation Sreekanth Ackerman MD Work Phone: [facility] 10-14-2021 influenza, injectabl e, quadrivalent, preservative free Roseanna Ross SALES LEAD.RETAIL SALES MERCHANDISER Work Phone: [facility] Work Phone: 09-09-2021 COVID-19 original vaccine, age 12+ yr, monovalent (PFIZER-BIONTECH - HOUSER TOP) Hector Currie MD Work Phone: [facility] 11-25-2020 COVID-19 vaccine, ag e 12+ yr (PFIZER-BIONTECH - PURPLE TOP) Roseanna Ross APRN.RETAIL SALES MERCHANDISER Work Phone: [facility] Work Phone: 11-03-2020 COVID-19 vaccine, ag e 12+ yr (PFIZER-BIONTAmulyte - PURPLE TOP) Roseanna Ross SALES LEAD.[employer] Work Phone: [facility] Work Phone: 06-22-2018 influenza, injectabl e, quadrivalent, contains preservative Roseanna Ross SALES LEAD.RETAIL SALES MERCHANDISER Work Phone: [facility] Work Phone: 10-06-2017 influenza, injectabl e, quadrivalent, contains preservative Roseanna Ross SALES LEAD.RETAIL SALES MERCHANDISER Work Phone: [facility] 09-17-2016 influenza, injectabl e, quadrivalent, preservative free Roseanna Ross SALES LEAD.RETAIL SALES MERCHANDISER Work Phone: [facility] 06-14-2015 influenza, injectabl e, quadrivalent, contains preservative Roseanna Ross SALES LEAD.RETAIL SALES MERCHANDISER Work Phone: [facility] 07-12-2014 influenza, seasonal, injectable Roseanna Ross SALES LEAD.RETAIL SALES MERCHANDISER Work Phone: [facility] 05-19-2013 influenza virus vaccine, unspecified formulation Roseanna Ross SALES LEAD.[employer] Work Phone: [facility] 01-12-2013 human papilloma viru s vaccine, quadrivalent Roseanna Ross SALES LEAD.RETAIL SALES MERCHANDISER Work Phone: [facility] 09-14-2012 human papilloma viru s vaccine, quadrivalent Roseanna Ross SALES LEAD.RETAIL SALES MERCHANDISER Work Phone: [facility] 07-14-2012 hepatitis A vaccine, unspecified formulation Roseanna Ross SALES LEAD.RETAIL SALES MERCHANDISER Work Phone: [facility] Work Phone: 07-14-2012 human papilloma viru s vaccine, quadrivalent Roseanna Ross SALES LEAD.RETAIL SALES MERCHANDISER Work Phone: [facility] Work Phone: 07-14-2012 Meningococcal, MCV4, unspecified conjugate formulation(groups A, C, Y and W-135) Roseanna Ross SALES LEAD.RETAIL SALES MERCHANDISER Work Phone: [facility] Work Phone: 07-14-2012 tetanus toxoid, redu lacy diphtheria toxoid, and acellular pertussis vaccine, adsorbed Roseanna Ross SALES LEAD.[employer] Work Phone: [facility] Work Phone: 06-12-2012 influenza virus vaccine, unspecified formulation Roseanna Ross SALES LEAD.[employer] Work Phone: [facility] Work Phone: 06-27-2011 influenza virus vaccine, unspecified formulation Roseanna Ross SALES LEAD.[employer] Work Phone: [facility] 06-20-2010 influenza virus vaccine, unspecified formulation Roseanna Ross SALES LEAD.[employer] Work Phone: [facility] Work Phone: 06-27-2009 novel [id number], preservative-free, injectable Roseanna Ross SALES LEAD.[employer] Work Phone: [facility] Work Phone: 05-30-2009 influenza virus vaccine, unspecified formulation Roseanna Ross SALES LEAD.[employer] Work Phone: [facility] Work Phone: 08-21-2008 hepatitis A vaccine, unspecified formulation Roseanna Ross SALES LEAD.[employer] Work Phone: [facility] 06-28-2008 influenza virus vaccine, unspecified formulation Roseanna Ross SALES LEAD.[employer] Work Phone: [facility] Work Phone: 07-03-2007 influenza virus vaccine, unspecified formulation Roseanna Ross SALES LEAD.[employer] Work Phone: [facility] Work Phone: 05-19-2005 Meningococcal, MCV4, unspecified conjugate formulation(groups A, C, Y and W-135) Roseanna Ross SALES LEAD.[employer] Work Phone: [facility] Work Phone: 03-07-2005 tetanus and diphther ia toxoids, adsorbed, preservative free, for adult use (2 Lf of tetanus toxoid and 2 Lf of diphtheria toxoid) Roseanna Ross SALES LEAD.[employer] Work Phone: [facility] Work Phone: 04-13-1998 diphtheria, tetanus toxoids and pertussis vaccine Roseanna Ross SALES LEAD.RETAIL SALES MERCHANDISER Work Phone: [facility] Work Phone: 04-13-1998 measles, mumps and rubella virus vaccine Roseanna Ross SALES LEAD.RETAIL SALES MERCHANDISER Work Phone: [facility] Work Phone: 04-13-1998 trivalent poliovirus vaccine, live, oral Roseanna Ross SALES LEAD.[employer] Work Phone: [facility] Work Phone: 1994 Chicken Pox (disease) oRseanna little SALES LEAD.[employer] Work Phone: [facility] Work Phone: 11-07-1993 diphtheria, tetanus toxoids and pertussis vaccine Roseanna Ross SALES LEAD.[employer] Work Phone: [facility] Work Phone: 11-07-1993 trivalent poliovirus vaccine, live, oral Roseanna Ross SALES LEAD.[employer] Work Phone: [facility] Work Phone: 09-12-1993 haemophilus influenz ae type b vaccine, HbOC conjugate Roseanna Ross SALES LEAD.RETAIL SALES MERCHANDISER Work Phone: [facility] Work Phone: 09-12-1993 measles, mumps and rubella virus vaccine Roseanna Ross SALES LEAD.RETAIL SALES MERCHANDISER Work Phone: [facility] Work Phone: 02-21-1993 hepatitis B vaccine, pediatric or pediatric/adolescent dosage Roseanna Ross SALES LEAD.RETAIL SALES MERCHANDISER Work Phone: [facility] Work Phone: 1992 diphtheria, tetanus toxoids and pertussis vaccine Roseanna Ross SALES LEAD.RETAIL SALES MERCHANDISER Work Phone: [facility] Work Phone: 1992 haemophilus influenz ae type b vaccine, HbOC conjugate Roseanna Ross SALES LEAD.RETAIL SALES MERCHANDISER Work Phone: [facility] Work Phone: 1992 diphtheria, tetanus toxoids and pertussis vaccine Roseanna Ross SALES LEAD.[employer] Work Phone: [facility] Work Phone: 1992 haemophilus influenz ae type b vaccine, HbOC conjugate Roseanna Ross SALES LEAD.[employer] Work Phone: [facility] Work Phone: 1992 hepatitis B vaccine, pediatric or pediatric/adolescent dosage Roseanna Ross SALES LEAD.[employer] Work Phone: [facility] Work Phone: 1992 trivalent poliovirus vaccine, live, oral Roseanna Ross SALES LEAD.[employer] Work Phone: [facility] Work Phone: 1992 hepatitis B vaccine, pediatric or pediatric/adolescent dosage Roseanna Ross SALES LEAD.[employer] Work Phone: [facility] Work Phone: 1992 diphtheria, tetanus toxoids and pertussis vaccine Roseanna Ross SALES LEAD.[employer] Work Phone: [facility] Work Phone: 1992 haemophilus influenz ae type b vaccine, HbOC conjugate Roseanna Ross SALES LEAD.RETAIL SALES MERCHANDISER Work Phone: [facility] Work Phone: 1992 trivalent poliovirus vaccine, live, oral Roseanna Ross SALES LEAD.[employer] Work Phone: [facility] Work Phone: Payers Date Payer Category Payer Self-pay [id number] 2021 Medicaid [id number] 2016 Medicaid [id number] 2012 Medicaid [id number] 2012 Medicare MEDICARE MEDICAR E A AND B [id number] 2012-Present [phone] [address] [address] [place] [address] Medicare [id number] 2012 Medicare [id number] 2012 Medicare [id number] Unknown [id number] Unknown [id number] Social History Date Type Detail Facility Start: 08-11-2016 End: 05-13-2022 Tobacco smoking status NHIS Never smoked tobacco [facility] Work Phone: Start: 12-03-2021 Alcohol intake Current non-drinker of alcohol (finding) [facility] Start: 1992 Sex Assigned At Male [facility] Start: 11-23-2021 End: 07-22-2022 Exposure to SARS-CoV-2 (event) Not sure [facility] Work Phone: Start: 02-05-2022 End: 04-21-2025 Alcohol intake Lifetime non-drinker (finding) [facility] Start: 02-05-2022 History SDOH Alcohol Frequency [address] [facility] Start: 08-11-2016 End: 05-13-2022 Tobacco use and exposure Smokeless tobacco non-user [facility] Work Phone: Start: 07-11-2021 End: 09-16-2022 Tobacco smoking status NHIS Unknown if ever smoked [facility] Start: 12-26-2022 End: 05-23-2023 History of Social function [facility] Start: 12-26-2022 End: 05-23-2023 Tobacco use panel [facility] Start: 07-25-2012 Adult Depression Screening Assessment [address] [facility] Start: 10-13-2021 Gender identity Identifies as male gender (finding) [facility] Start: 10-13-2021 Sexual orientation Heterosexual (finding) [facility] Has the [employer], [employer], or [employer] threatened to shut off services in your home in past 12Mo No [facility] Do you belong to any clubs or organizations such as episcopal groups, unions, fraternal or athletic groups, or school groups? Yes [facility] Are you now , , , , never or living with a partner? Never [facility] How often to you hav e a drink containing alcohol? Never [facility] How hard is it for y ou to pay for the very basics like food, housing, medical care, and heating Not very hard [facility] Do you feel stress - tense, restless, nervous, or anxious, or unable to sleep at night because your mind is troubled all the time - these days [OSQ] Only a little [facility] (I/We) worried wheth er (my/our) food would run out before (I/we) got money to buy more. Never true [facility] Start: 12-07-2024 Sex Male (finding) [facility] Functional Status Date Assessment Result Facility 12-15-2014 Are you deaf, or do you have serious difficulty hearing No 12/15/2014 1:02 PM Milena Sorensen Ma No [facility] 12-15-2014 Are you blind, or do you have serious difficulty seeing, even when wearing glasses No 12/15/2014 1:02 PM Milena Sorensen Ma No [facility] 12-15-2014 Do you have serious difficulty walking or climbing stairs No 12/15/2014 1:02 PM Milena Sorensen Ma No [facility] 12-15-2014 Do you have difficul ty dressing or bathing No 12/15/2014 1:02 PM EDT Ingrid VelasquezMilena No [facility] 12-15-2014 Because of a physica l, mental, or emotional condition, do you have difficulty doing errands alone such as visiting a physician's office or shopping No 12/15/2014 1:02 PM EDT Ingrid VelasquezMilena No [facility] Mental Status Date Assessment Result Facility 09-16-2022 Cognitive function Voice/Name [facility] Work Phone: 12-15-2014 Because of a physica l, mental, or emotional condition, do you have serious difficulty concentrating, remembering, or making decisions Yes 12/15/2014 1:02 PM EDT Ingrid VelasquezMilena Yes [facility] Clinical Notes 09-27-2010 to 05-05-2025 Telephone Encounter - Piotr Lindsey RN - 05/05/2025 5:04 PM EDTTelephone Encounter - Piotr Lindsey RN - 05/05/2025 5:04 PM EDTPatient InstructionsPatient InstructionsPatient Instructions Note Date & Type Note Facility 05-05-2025 Telephone encounter Note Mother (Lanie) calls to report that [facility] received Sleep Study results but not order for C-Pap or OV notes. Faxed to [phone] per request. Piotr Lindsey RN [facility] 05-05-2025 Miscellaneous Notes Mother (Lanie) calls to report that [facility] received Sleep Study results but not order for C-Pap or OV notes. Faxed to [phone] per request. Piotr Lindsey RN documented in this encounter [facility] 04-21-2025 Instructions Sarah Herrmann APRN.CNS - 04/21/2025 4:07 PM EDT - Continue taking Trulicity as prescribed; your refill has been sent to [facility]. - Begin low-dose rosuvastatin once nightly for your cholesterol; most people tolerate it well but if you notice any new symptoms or don t feel well, let us know. - All other current prescriptions have refills through ; contact the office if you need any refills sooner. - A1c blood work was drawn today; we will review the results with you when they come back. - Your sleep study order for CPAP compliance has been sent; please check in with our office next week to confirm the study scheduling and delivery of your CPAP equipment. - Wear your CPAP mask every night as prescribed; call us if you have questions about fit or comfort. - Continue attending your counseling sessions as planned. - Aim for a short walk each day--start slowly and build up over time; using a walk when you feel like snacking can help with both mood and weight. - Schedule a Medicare wellness visit in July with Dr. Gonzalez to review immunizations (including tetanus) and overall health maintenance. documented in this encounter [facility] 04-21-2025 History of Presen t illness Narrative Subjective Patient ID: Francis is a 34 year old male who presents for Established Patient (4 month F/U HTN and sugar levels). HPI The patient is a 34-year-old male with type 2 diabetes mellitus and obstructive sleep apnea, presenting for follow-up. Presents with his mother that helps with HPI. Type 2 Diabetes Mellitus: - Managed with Trulicity; Francis denies nausea, emesis, or abdominal pain. - Recent eye exam at [facility] on [address] showed minimal changes. - Last A1c was well-controlled. Obesity: - Francis's weight increased by 20 lbs since May of last year. - Francis attributes weight gain to emotional eating during a slump. - Francis enjoys walking; has access to sidewalks and a mtz for walking. Hyperlipidemia: - Francis is not currently on medication for hyperlipidemia. Depression: - Francis is currently seeing a counselor. Obstructive Sleep Apnea: - Francis has tried to use CPAP machine in the past but has had trouble with consistency Of use. He would like to try this again. Last sleep study was completed May 2024 at [facility]. BiPAP was recommended. Orders were sent. DME is [facility]. Diabetes: - Managed with Trulicity injections, which Francis feels are effective in curbing symptoms, especially during stress. - No issues with current medication regimen. DIABETES MELLITUS: Without reported excessive thirst or increased frequency of urination, chest pain or dyspnea , numbness, tingling or pain in extremities, new or unusual visual symptoms, low sugar/hypoglycemic reactions, weight loss/gain, lightheadedness/dizziness, and bowel changes/loose stools. Patient's last HgA1C was Hemoglobin A1C (%) Date Value 12/20/2024 5.7 07/30/2024 5.3 03/19/2021 6.3 03/19/2021 6.3 ) ROS Constitutional: (+) weight gain Gastrointestinal: (-) nausea, (-) vomiting, (-) abdominal pain Objective BP 109/78 Pulse 103 Resp 20 Wt (!) 163.8 kg (361 lb 1.8 oz) SpO2 96% BMI 46.36 kg/m Physical Exam Vitals and nursing note reviewed. Constitutional: Appearance: Normal appearance. HENT: Head: Normocephalic and atraumatic. Eyes: Conjunctiva/sclera: Conjunctivae normal. Cardiovascular: Rate and Rhythm: Normal rate and regular rhythm. Pulses: Dorsalis pedis pulses are 2+ on the right side and 2+ on the left side. Heart sounds: Normal heart sounds. Pulmonary: Effort: Pulmonary effort is normal. Breath sounds: Normal breath sounds. Abdominal: General: Bowel sounds are normal. Palpations: Abdomen is soft. Musculoskeletal: Right lower leg: No edema. Left lower leg: No edema. Feet: Right foot: Protective Sensation: 10 sites tested. 10 sites sensed. Skin integrity: Skin integrity normal. Toenail Condition: Right toenails are normal. Left foot: Protective Sensation: 10 sites tested. 10 sites sensed. Skin integrity: Skin integrity normal. Toenail Condition: Left toenails are normal. Skin: General: Skin is warm and dry. Neurological: General: No focal deficit present. Mental Status: He is alert and oriented to person, place, and time. Latest Ref Rng 12/20/2024 Protein, Total 6.3 - 8.0 g/dL 7.1 Albumin 3.9 - 4.9 g/dL 4.4 Calcium 8.5 - 10.2 mg/dL 9.4 Bilirubin, Total 0.2 - 1.3 mg/dL 0.3 Alkaline Phosphatase 38 - 113 U/L 66 AST 14 - 40 U/L 20 ALT 10 - 54 U/L 21 Glucose 74 - 99 mg/dL 128 (H) BUN 9 - 24 mg/dL 13 Creatinine 0.73 - 1.22 mg/dL 0.67 (L) Sodium 136 - 144 mmol/L 136 Potassium 3.7 - 5.1 mmol/L 4.5 Chloride 98 - 107 mmol/L 97 (L) CO2 22 - 30 mmol/L 27 Anion Gap 8 - 15 mmol/L 12 eGFR >=60 mL/min/1.73m 127 WBC 3.70 - 11.00 k/uL 10.84 RBC 4.20 - 6.00 m/uL 4.91 Hemoglobin 13.0 - 17.0 g/dL 14.2 Hematocrit 39.0 - 51.0 % 42.6 MCV 80.0 - 100.0 fL 86.8 MCH 26.0 - 34.0 pg 28.9 MCHC 30.5 - 36.0 g/dL 33.3 RDW-CV 11.5 - 15.0 % 12.0 Platelet Count 150 - 400 k/uL 220 MPV 9.0 - 12.7 fL 11.2 Absolute nRBC <0.01 k/uL <0.01 Total Cholesterol, Nonfasting <200 mg/dL 187 Triglycerides, Nonfasting <150 mg/dL 340 (H) HDL Cholesterol, Nonfasting >39 mg/dL 29 (L) LDL Cholesterol Calculated, Nonfasting <100 mg/dL 100 (H) Non HDL Cholesterol, Nonfasting <130 mg/dL 158 (H) VLDL Cholesterol, Nonfasting <30 mg/dL 56 (H) Total Chol/HDL Ratio, Nonfasting <5.10 mg/dL 6.45 (H) LDL/HDL Ratio, Nonfasting <2.54 mg/dL 3.45 (H) Hemoglobin A1C 4.3 - 5.6 % 5.7 (H) Estimated Average Glucose mg/dL 117 1. Primary hypertension (I10) Controlled, continue current management unchanged. 2. Controlled type 2 diabetes mellitus without complication, without long-term current use of insulin (HCC) (E11.9) - A1c has been well controlled. - Continue Trulicity; refill sent to pharmacy. - No reported side effects from Trulicity. - Recent eye exam at [facility] on [address] showed no significant changes. - Order repeat A1c today. Endorsed again with diet, daily activity such as walking and avoiding stress eating which has caused 20 pound weight gain over the last year. 3. Class 3 severe obesity without serious comorbidity with body mass index (BMI) of 45.0 to 49.9 in adult, unspecified obesity type (HCC) (E66.813) 4. Class 3 severe obesity with body mass index (BMI) of 45.0 to 49.9 in adult (HCC) (E66.813) - Weight has increased by approximately 20 lbs since May last year; current weight is 342 lbs. - Encouraged daily walking and substitution of eating with physical activity to support weight management and improve mood. 5. DWIGHT (obstructive sleep apnea) (G47.33) - Discussed need for compliance with BIPAP therapy. - Reviewed recent sleep study from May 2024. - Print out sleep study report and orders for [employer]. 6. Hyperlipidemia, unspecified hyperlipidemia type (E78.5) - Not at target for cholesterol. - Start rosuvastatin at a low dose, to be taken once daily at night. - Discussed that rosuvastatin is generally well tolerated, but if any adverse effects occur, medication can be discontinued and alternatives considered. 7. Obstructive sleep apnea (G47.33) - Continue current CPAP therapy; patient reports effective management. Change July visit to Medicare wellness. Sarah Herrmann APRN.CNS Medical Decision Making: Problems: Moderate: 2+ stable chronic illnesses Data: Unique test result(s) reviewed: 3+ Unique test(s) ordered: 1 Risk: Moderate: Drug management Medical Decision Making Level: 4 - Moderate documented in this encounter [facility] 04-21-2025 Note HNO ID: [id number] Author: SARAH HERRMANN APRN.CNS Service: ? Author Type: Nurse Specialist Type: Progress Notes Filed: 04/21/2025 16:26 Note Text: Subjective Patient ID: Francis is a 34 year old male who presents for Established Patient (4 month F/U HTN and sugar levels). HPI The patient is a 34-year-old male with type 2 diabetes mellitus and obstructive sleep apnea, presenting for follow-up. Presents with his mother that helps with HPI. Type 2 Diabetes Mellitus: - Managed with Trulicity; Francis denies nausea, emesis, or abdominal pain. - Recent eye exam at [facility] on [address] showed minimal changes. - Last A1c was well-controlled. Obesity: - Francis's weight increased by 20 lbs since May of last year. - Francis attributes weight gain to emotional eating during a slump. - Francis enjoys walking; has access to sidewalks and a mtz for walking. Hyperlipidemia: - Francis is not currently on medication for hyperlipidemia. Depression: - Francis is currently seeing a counselor. Obstructive Sleep Apnea: - Francis has tried to use CPAP machine in the past but has had trouble with consistency Of use. He would like to try this again. Last sleep study was completed May 2024 at [facility]. BiPAP was recommended. Orders were sent. DME is [employer]. Diabetes: - Managed with Trulicity injections, which Francis feels are effective in curbing symptoms, especially during stress. - No issues with current medication regimen. DIABETES MELLITUS: Without reported excessive thirst or increased frequency of urination, chest pain or dyspnea , numbness, tingling or pain in extremities, new or unusual visual symptoms, low sugar/hypoglycemic reactions, weight loss/gain, lightheadedness/dizziness, and bowel changes/loose stools. Patient's last HgA1C was Hemoglobin A1C (%) Date Value 12/20/2024 5.7 07/30/2024 5.3 03/19/2021 6.3 03/19/2021 6.3 ) ROS Constitutional: (+) weight gain Gastrointestinal: (-) nausea, (-) vomiting, (-) abdominal pain Objective BP 109/78 Pulse 103 Resp 20 Wt (!) 163.8 kg (361 lb 1.8 oz) SpO2 96% BMI 46.36 kg/m? Physical Exam Vitals and nursing note reviewed. Constitutional: Appearance: Normal appearance. HENT: Head: Normocephalic and atraumatic. Eyes: Conjunctiva/sclera: Conjunctivae normal. Cardiovascular: Rate and Rhythm: Normal rate and regular rhythm. Pulses: Dorsalis pedis pulses are 2+ on the right side and 2+ on the left side. Heart sounds: Normal heart sounds. Pulmonary: Effort: Pulmonary effort is normal. Breath sounds: Normal breath sounds. Abdominal: General: Bowel sounds are normal. Palpations: Abdomen is soft. Musculoskeletal: Right lower leg: No edema. Left lower leg: No edema. Feet: Right foot: Protective Sensation: 10 sites tested. 10 sites sensed. Skin integrity: Skin integrity normal. Toenail Condition: Right toenails are normal. Left foot: Protective Sensation: 10 sites tested. 10 sites sensed. Skin integrity: Skin integrity normal. Toenail Condition: Left toenails are normal. Skin: General: Skin is warm and dry. Neurological: General: No focal deficit present. Mental Status: He is alert and oriented to person, place, and time. Latest Ref Rn 12/20/2024 Protein, Total 6.3 - 8.0 g/dL 7.1 Albumin 3.9 - 4.9 g/dL 4.4 Calcium 8.5 - 10.2 mg/dL 9.4 Bilirubin, Total 0.2 - 1.3 mg/dL 0.3 Alkaline Phosphatase 38 - 113 U/L 66 AST 14 - 40 U/L 20 ALT 10 - 54 U/L 21 Glucose 74 - 99 mg/dL 128 (H) BUN 9 - 24 mg/dL 13 Creatinine 0.73 - 1.22 mg/dL 0.67 (L) Sodium 136 - 144 mmol/L 136 Potassium 3.7 - 5.1 mmol/L 4.5 Chloride 98 - 107 mmol/L 97 (L) CO2 22 - 30 mmol/L 27 Anion Gap 8 - 15 mmol/L 12 eGFR >=60 mL/min/1.73m? 127 WBC 3.70 - 11.00 k/uL 10.84 RBC 4.20 - 6.00 m/uL 4.91 Hemoglobin 13.0 - 17.0 g/dL 14.2 Hematocrit 39.0 - 51.0 % 42.6 MCV 80.0 - 100.0 fL 86.8 MCH 26.0 - 34.0 pg 28.9 MCHC 30.5 - 36.0 g/dL 33.3 RDW-CV 11.5 - 15.0 % 12.0 Platelet Count 150 - 400 k/uL 220 MPV 9.0 - 12.7 fL 11.2 Absolute nRBC <0.01 k/uL <0.01 Total Cholesterol, Nonfasting <200 mg/dL 187 Triglycerides, Nonfasting <150 mg/dL 340 (H) HDL Cholesterol, Nonfasting >39 mg/dL 29 (L) LDL Cholesterol Calculated, Nonfasting <100 mg/dL 100 (H) Non HDL Cholesterol, Nonfasting <130 mg/dL 158 (H) VLDL Cholesterol, Nonfasting <30 mg/dL 56 (H) Total Chol/HDL Ratio, Nonfasting <5.10 mg/dL 6.45 (H) LDL/HDL Ratio, Nonfasting <2.54 mg/dL 3.45 (H) Hemoglobin A1C 4.3 - 5.6 % 5.7 (H) Estimated Average Glucose mg/dL 117 1. Primary hypertension (I10) Controlled, continue current management unchanged. 2. Controlled type 2 diabetes mellitus without complication, without long-term current use of insulin (HCC) (E11.9) - A1c has been well controlled. - Continue Trulicity; refill sent to pharmacy. - No reported side effects from Trulicity. - Recent eye exam at [facility] on [address] (more content not included)... [facility] 02-07-2025 Telephone encounter Note Prescription Refill Information The patient has been identified by name and date of : Yes Caregiver verified no other encounters exist for this prescription request: Yes Caregiver confirmed with patient/requestor that no other refills are due, in the near future, with this provider at this time: Yes The last office visit in the department: 12-20-24 Does the patient have a future office visit with this provider/department: Yes Requested Prescriptions Pending Prescriptions Disp Refills dulaglutide (TRULICITY) 4.5 mg/0.5 mL pen injector 2 mL 2 Sig: Inject 4.5 mg subcutaneously one time a week. Rita Guzman February 07, 2025 9:[address] [facility] 02-07-2025 Miscellaneous Notes Prescription Refill Information The patient has been identified by name and date of : Yes Caregiver verified no other encounters exist for this prescription request: Yes Caregiver confirmed with patient/requestor that no other refills are due, in the near future, with this provider at this time: Yes The last office visit in the department: 12-20-24 Does the patient have a future office visit with this provider/department: Yes Requested Prescriptions Pending Prescriptions Disp Refills dulaglutide (TRULICITY) 4.5 mg/0.5 mL pen injector 2 mL 2 Sig: Inject 4.5 mg subcutaneously one time a week. Rita Guzman February 07, 2025 9:03 AM documented in this encounter [facility] 12-22-2024 Progress note Formatting of t his note might be different from the original. Recent labwork was in acceptable range overall, increased triglycerides non-fasting. [facility] 12-22-2024 Miscellaneous Notes Recent labwork was in acceptable range overall, increased triglycerides non-fasting. documented in this encounter [facility] 12-20-2024 Note HNO ID: [id number] Author: SARAH HERRMANN APRN.CNS Service: ? Author Type: Nurse Specialist Type: Progress Notes Filed: 12/20/2024 16:25 Note Text: Subjective Patient ID: Francis is a 34 year old male who presents for No chief complaint on file.. HPI Francis is a 34-year-old male with a history of diabetes and sleep apnea, presenting for a routine visit, accompanied by his mother who is providing additional history. Diabetes: - Managed with Trulicity injections, which Francis feels are effective in curbing symptoms, especially during stress. - No issues with current medication regimen. Sleep Apnea: - Well-managed with current treatment. - No reported breathing difficulties. Urinary Incontinence: - Increased urinary incontinence during the day, occurring 3-4 times daily. - Denies dysuria, abdominal or back pain, fever, or changes in urine flow. - Nocturia occasionally, but able to void without issues. - Denies any recent trauma or injury. Notes can tell when he needs to urinate but does not want to stop what he is doing to go to toilet. ROS Constitutional: (-) fever Respiratory: (-) shortness of breath Gastrointestinal: (-) abdominal pain Genitourinary: (+) urinary incontinence, (-) dysuria Musculoskeletal: (+) back pain Objective BP 118/78 Pulse 106 Resp 16 Wt (!) 162 kg (357 lb 2.3 oz) BMI 45.85 kg/m? Physical Exam Vitals and nursing note reviewed. Constitutional: Appearance: Normal appearance. HENT: Head: Normocephalic and atraumatic. Eyes: Conjunctiva/sclera: Conjunctivae normal. Cardiovascular: Rate and Rhythm: Normal rate and regular rhythm. Pulses: Dorsalis pedis pulses are 2+ on the right side and 2+ on the left side. Heart sounds: Normal heart sounds. Pulmonary: Effort: Pulmonary effort is normal. Breath sounds: Normal breath sounds. Abdominal: General: Bowel sounds are normal. Palpations: Abdomen is soft. Musculoskeletal: Right lower leg: No edema. Left lower leg: No edema. Feet: Right foot: Protective Sensation: 10 sites tested. 10 sites sensed. Skin integrity: Skin integrity normal. Toenail Condition: Right toenails are normal. Left foot: Protective Sensation: 10 sites tested. 10 sites sensed. Skin integrity: Skin integrity normal. Toenail Condition: Left toenails are normal. Skin: General: Skin is warm and dry. Neurological: General: No focal deficit present. Mental Status: He is alert and oriented to person, place, and time. 1. Class 3 severe obesity due to excess calories with body mass index (BMI) of 45.0 to 49.9 in adult, unspecified whether serious comorbidity present (E66.813) 2. Class 3 severe obesity without serious comorbidity with body mass index (BMI) of 45.0 to 49.9 in adult, unspecified obesity type (E66.813) - Continue current management. 3. Controlled type 2 diabetes mellitus without complication, without long-term current use of insulin (HCC) (E11.9) - Well-controlled on Trulicity injections; patient reports improvement in glycemic control. - Refill for Trulicity due in three months. - Ordered lab work to monitor glycemic control. 4. Primary hypertension (I10) - Continue current management. 5. Gastroesophageal reflux disease, unspecified whether esophagitis present (K21.9) - Continue current management. 6. Urinary incontinence, unspecified type (R32) - Advised implementing a timed voiding schedule with alarms set every 2-3 hours during the day. - No dysuria, abdominal or back pain, or fever reported; no signs of infection. - Monitor for improvement; if no significant change within 1-2 weeks, further evaluation will be considered. UA, culture, urology referral 7. Obstructive sleep apnea (G47.33) - Continue current CPAP therapy; patient reports effective management. Sarah Herrmann, MARTY.HEALTH CARE SPECIALIST Medical Decision Making: Problems: Moderate: 2+ stable chronic illnesses and 1+ chronic illnesses with change Risk: Moderate: Drug management Medical Decision Making Level: 4 - Moderate [facility] 12-20-2024 History of Presen t illness Narrative Subjective Patient ID: Francis is a 34 year old male who presents for No chief complaint on file.. HPI Francis is a 34-year-old male with a history of diabetes and sleep apnea, presenting for a routine visit, accompanied by his mother who is providing additional history. Diabetes: - Managed with Trulicity injections, which Francis feels are effective in curbing symptoms, especially during stress. - No issues with current medication regimen. Sleep Apnea: - Well-managed with current treatment. - No reported breathing difficulties. Urinary Incontinence: - Increased urinary incontinence during the day, occurring 3-4 times daily. - Denies dysuria, abdominal or back pain, fever, or changes in urine flow. - Nocturia occasionally, but able to void without issues. - Denies any recent trauma or injury. Notes can tell when he needs to urinate but does not want to stop what he is doing to go to toilet. ROS Constitutional: (-) fever Respiratory: (-) shortness of breath Gastrointestinal: (-) abdominal pain Genitourinary: (+) urinary incontinence, (-) dysuria Musculoskeletal: (+) back pain Objective BP 118/78 Pulse 106 Resp 16 Wt (!) 162 kg (357 lb 2.3 oz) BMI 45.85 kg/m Physical Exam Vitals and nursing note reviewed. Constitutional: Appearance: Normal appearance. HENT: Head: Normocephalic and atraumatic. Eyes: Conjunctiva/sclera: Conjunctivae normal. Cardiovascular: Rate and Rhythm: Normal rate and regular rhythm. Pulses: Dorsalis pedis pulses are 2+ on the right side and 2+ on the left side. Heart sounds: Normal heart sounds. Pulmonary: Effort: Pulmonary effort is normal. Breath sounds: Normal breath sounds. Abdominal: General: Bowel sounds are normal. Palpations: Abdomen is soft. Musculoskeletal: Right lower leg: No edema. Left lower leg: No edema. Feet: Right foot: Protective Sensation: 10 sites tested. 10 sites sensed. Skin integrity: Skin integrity normal. Toenail Condition: Right toenails are normal. Left foot: Protective Sensation: 10 sites tested. 10 sites sensed. Skin integrity: Skin integrity normal. Toenail Condition: Left toenails are normal. Skin: General: Skin is warm and dry. Neurological: General: No focal deficit present. Mental Status: He is alert and oriented to person, place, and time. 1. Class 3 severe obesity due to excess calories with body mass index (BMI) of 45.0 to 49.9 in adult, unspecified whether serious comorbidity present (E66.813) 2. Class 3 severe obesity without serious comorbidity with body mass index (BMI) of 45.0 to 49.9 in adult, unspecified obesity type (E66.813) - Continue current management. 3. Controlled type 2 diabetes mellitus without complication, without long-term current use of insulin (HCC) (E11.9) - Well-controlled on Trulicity injections; patient reports improvement in glycemic control. - Refill for Trulicity due in three months. - Ordered lab work to monitor glycemic control. 4. Primary hypertension (I10) - Continue current management. 5. Gastroesophageal reflux disease, unspecified whether esophagitis present (K21.9) - Continue current management. 6. Urinary incontinence, unspecified type (R32) - Advised implementing a timed voiding schedule with alarms set every 2-3 hours during the day. - No dysuria, abdominal or back pain, or fever reported; no signs of infection. - Monitor for improvement; if no significant change within 1-2 weeks, further evaluation will be considered. UA, culture, urology referral 7. Obstructive sleep apnea (G47.33) - Continue current CPAP therapy; patient reports effective management. Sarah Herrmann APRN.CNS Medical Decision Making: Problems: Moderate: 2+ stable chronic illnesses and 1+ chronic illnesses with change Risk: Moderate: Drug management Medical Decision Making Level: 4 - Moderate documented in this encounter [facility] 12-01-2024 Radiology Diagnostic study note [facility] Imaging Services [address] [place] [address] Lumbar Spine 2 or 3 Views MR#: [id number] Acct: [id number] Name: NIKO BROOKE Rep #: [id number] : 1990 M 34 From: Corina Giraldo MD PCP: Dr. Hector Currie MD Status: RE G CLI Study:Lumbar Spine 2 or 3 Views Date of Exam: 11/30/24 Exam# [id number] Ordering Dr: Isha Mary MD PROCEDURE: LUMBAR SPINE 2 OR 3 VIEWS 11/30/2024 REASON FOR EXAM: PAIN TECHNIQUE: 2 view(s) of the lumbar spine COMPARISON: None available FINDINGS: Vertebrae: Vertebral body heights are well preserved. Discs: There is loss of intervertebral disc height at L5-S1 Alignment: Mild levocurvature of the lumbar spine. Other: RAD/Lumbar Spine 2 or 3 Views IMPRESSION: Degenerative changes throughout the lumbar spine. Mild levocurvature of the lumbar spine. Reading Location: [facility] CC: Dr. Rachid Mary MD; Dr. Hector Currie MD ~ Landfill Attendant: Signed [facility] 11-14-2024 Telephone encounter Note Prescription Refill Information The patient has been identified by name and date of : Yes Caregiver verified no other encounters exist for this prescription request: Yes Caregiver confirmed with patient/requestor that no other refills are due, in the near future, with this provider at this time: Yes The last office visit in the department: 08/15/2024 Does the patient have a future office visit with this provider/department: Yes Requested Prescriptions Pending Prescriptions Disp Refills dulaglutide (TRULICITY) 4.5 mg/0.5 mL pen injector 2 mL 2 Sig: Inject 4.5 mg subcutaneously one time a week. Teena Buckner November 14, 2024 2:[address] [facility] 11-14-2024 Miscellaneous Notes Prescription Refill Information The patient has been identified by name and date of : Yes Caregiver verified no other encounters exist for this prescription request: Yes Caregiver confirmed with patient/requestor that no other refills are due, in the near future, with this provider at this time: Yes The last office visit in the department: 08/15/2024 Does the patient have a future office visit with this provider/department: Yes Requested Prescriptions Pending Prescriptions Disp Refills dulaglutide (TRULICITY) 4.5 mg/0.5 mL pen injector 2 mL 2 Sig: Inject 4.5 mg subcutaneously one time a week. Teena Buckner November 14, 2024 2:58 PM documented in this encounter [facility] 10-10-2024 Note SARS-COV-2 (AGENT OF COVID-19) RNA: Not detected INFLUENZA A RNA: Detected INFLUENZA B RNA: Not detected RESPIRATORY SYNCYTIAL VIRUS (RSV) RNA: Not detected [facility] Comment on above: Performed By: #### [id number] ####[facility] LABCLIA [id number] [place] 10-10-2024 Instructions Brandee Mcmanus APRN.[employer] - 10/10/2024 11:29 AM EST ASSESSMENT/PLAN: 1. Flu-like symptoms - ICD9: 780.99, ICD10: R68.89 (primary diagnosis) - INFLUENZA A&B MOLECULAR (POC) - COVID & INFLUENZA A/B & RSV PCR, ROUTINE 2. Acute upper respiratory infection, unspecified - ICD9: 465.9, ICD10: J06.9 - Discussed viral etiology and rationale for treatment. - Symptomatic treatment with prn analgesia - Supportive care with fluids and rest - COVID & INFLUENZA A/B & RSV PCR, ROUTINE 3. Influenza A - ICD9: 487.1, ICD10: J10.1 - OSELTAMIVIR 75 MG CAPSULE Office Visit on 10/10/2024 Component Date Value Ref Range Status Flu A (POCT) 10/10/2024 Positive (A) Negative Final Location:[facility], [address] [place] [address], [place], [address] Procedural Control 10/10/2024 Valid Final You have tested positive for influenza A. Recommend supportive therapy at home. - Drink PLENTY of fluids (Gatorade/Pedialyte, tea) and get PLENTY of rest - Vaporizers, humidifiers, hot showers, and warm fluids help open respiratory and sinus passages (helps with cough and congestion) - Saline nose spray - Tylenol or ibuprofen as needed for fever and/or discomfort - Cover cough and wash hands frequently to prevent the spread of germs. Influenza can be spread through contact with respiratory secretions (through sneezing, coughing, talking, touching) or contaminated objects. You can be contagious from before your symptoms began and for several days after. - Follow-up with your PCP in 3-5 days if symptoms have not improved or sooner if symptoms worsen - Discussed red flags and need for immediate medical evaluation if any occur. - Discussed supportive care treatment with fluids, rest and analgesia. - Discussed expected course of illness Brandee Mcmanus APRN.[facility] C[facility] PATIENT INFO INFLUENZA INTRODUCTION Influenza (commonly called the flu) is a highly contagious illness that can occur in children or adults of any age. It occurs more often in the winter months because people spend more time in close contact with one another. The flu is spread easily from [id number] by coughing, sneezing, or touching surfaces. Every year, complications of the flu require more than 200,000 people in the [place] to be hospitalized. Serious illness is more likely in the very young, older adults, women, and people who have certain health problems such as asthma or other forms of lung disease. There have been several widespread flu outbreaks (called pandemics), which led to the deaths of many people worldwide. These outbreaks occurred when new strains of influenza viruses formed (often from pigs or birds) and humans became infected because they had no immunity to these viruses. FLU SYMPTOMS Symptoms of seasonal flu can vary from person to person, but usually include: Fever (temperature higher than 100 F or 37.8 C) Headache and muscle aches Fatigue Cough and sore throat may also be present People with the flu usually have a fever for two to five days. This is different than fever caused by other upper respiratory viruses, which usually resolve after 24 to 48 hours. Some people have cold-like symptoms (runny nose, sore throat) during the flu while others have fever and muscle aches. Flu symptoms usually improve over two to five days, although the illness may last for a week or more. Weakness and fatigue may persist for several weeks Flu complications -- Complications of influenza occur in some people; pneumonia is the most common complication. Pneumonia is a serious infection of the lungs, and is more likely to occur in people over the age of 65, people who live in senior living care facilities (nursing homes), and those with other illnesses such as diabetes or conditions affecting the heart or lungs. FLU DIAGNOSIS Influenza is usually diagnosed based on symptoms (fever, cough and muscle aches). Lab testing for influenza is performed in certain cases, such as during a new influenza outbreak in a community. FLU TREATMENT When to seek help -- Most people with the flu recover within one to two weeks without treatment. However, serious complications of the flu can occur. Call your doctor or nurse immediately if: You feel short of breath or have trouble breathing You have pain or pressure in your chest or stomach You have signs of being dehydrated, such as dizziness when standing or not passing urine You feel confused You cannot stop vomiting or you cannot drink enough fluids There are several groups of people who are at increased risk for flu complications. These include women, young children (<5 years of age, and especially <2 years of age), people >=65 years of age, and people with certain diseases such as chronic lung disease (such as asthma), heart disease, diabetes, immunosuppressing conditions (such as HIV infection or transplantation), and some other diseases. If you or your child has flu symptoms and is at increased risk of flu complications, you should call your healthcare provider. Treat symptoms -- Treating the symptoms of influenza can help you to feel better, but will not make the flu go away faster. Rest until the flu is fully resolved, especially if the illness has been severe Fluids -- Drink enough fluids so that you do not become dehydrated. One way to envelope fold operator if you are drinking enough is to look at the color of your urine. Normally, urine should be light yellow to nearly colorless. If you are drinking enough, you should pass urine every three to five hours. Acetaminophen (such as Tylenol and other brands) can relieve fever, headache, and muscle aches. Aspirin, and medicines that include aspirin (eg, bismuth subsalicylate; PeptoBismol), are not recommended for children under 18 because aspirin can lead to a serious disease called Joie syndrome. Cough medicines are not usually helpful; cough usually resolves without treatment. We do not recommend cough or cold medicine for children under age six years. Antiviral treatment -- Antiviral medicines can be used to treat or prevent influenza. When used as a treatment, the medicine does not eliminate flu symptoms, although it can reduce the severity and duration of symptoms by about one day. Not every person with influenza needs an antiviral medicine; the decision is based upon your risk of developing complications of influenza. Antiviral treatment is most effective for seasonal influenza when it is taken within the first 48 hours of flu symptoms. Side effects -- Zanamivir and oseltamivir can cause mild side effects, including nausea and vomiting; zanamivir, which is inhaled, can cause difficulty breathing in some cases. Most people are able to continue the medicine despite the side effects. Antibiotics -- Antibiotics are NOT useful for treating viral illnesses such as influenza. Antibiotics should only used if there is a bacterial complication of the flu such as bacterial pneumonia, ear infection, or sinusitis. Antibiotics can cause side effects and lead to development of antibiotic resistance. documented in this encounter [facility] 10-10-2024 Note HNO ID: [id number] Author: BRANDEE MCMANUS APRN.RADHA Service: ? Author Type: Nurse Practitioner Type: Progress Notes Filed: 10/10/2024 11:32 Note Text: Subjective Nasal Congestion Associated symptoms include congestion, coughing and shortness of breath. Pertinent negatives include no chills, headaches or sore throat. Niko Brooke is a 34 year old male who presents with cough, fever, runny nose, loss of taste and smell. Symptom onset 2 days ago. He has had some sinus pressure and shortness of breath. He was exposed to a family member with influenza A. Review of Systems Constitutional: Negative for chills and fever. HENT: Positive for congestion. Negative for sore throat. Respiratory: Positive for cough and shortness of breath. Cardiovascular: Negative. Gastrointestinal: Negative for diarrhea, nausea and vomiting. Musculoskeletal: Negative for myalgias. Neurological: Negative for headaches. BP 136/78 Pulse 104 Temp 36.3 ?C (97.3 ?F) Resp 20 Wt (!) 162.8 kg (358 lb 14.5 oz) SpO2 95% BMI 46.08 kg/m? PAST MEDICAL HISTORY Diagnosis Date Asthma 03/05/2010 ATTN DEFICIT NONHYPERACT 04/18/2006 Congenital pes planus 09/27/2010 DEPRESSIVE DISORDER NEC 04/18/2006 Encopresis 12/15/2014 Enuresis 12/15/2014 Excessive anger 07/14/2012 followed by psychiatry Family history of colon cancer Maternal Grandmother was 33years old when diagnosed and from colon cancer (will need colonoscopy at 28years old for screeening) Mental retardation, moderate (I.Q. 35-49) 10/12/2007 Obesity 12/15/2014 S/P lumbar laminectomy 09/2019 Dr. Weinstein Spinal stenosis of lumbar region with neurogenic claudication 05/10/2019 PAST SURGICAL HISTORY Procedure Laterality Date CIRCUMCISION LAMINECTOMY,LUMBAR 09/2019 L3,4,5 Dr. Weinstein TONSILLECTOMY AND ADENOIDECTOMY ALLERGIES Seasonal Allergies MEDICATIONS lisinopril (ZESTRIL) 10 mg tablet Take 1 tablet by mouth once daily. Take with 5 mg lisinopril once daily lisinopril (ZESTRIL) 5 mg tablet Take 1 tablet by mouth once daily. Take with 10 mg lisinopril once daily omeprazole (PRILOSEC) 40 mg capsule Take 1 capsule by mouth once daily. dulaglutide (TRULICITY) 4.5 mg/0.5 mL pen injector Inject 4.5 mg subcutaneously one time a week. triamcinolone (KENALOG) 0.025 % cream Apply 1 application to affected area two times a day. Up to 14 days per rash gabapentin (NEURONTIN) 300 mg capsule Take 1 capsule by mouth two times a day. CPAP/BIPAP/OTHER Type .CPAPSettings into a note to see current settings/supplies/DME information. DULoxetine (CYMBALTA) 60 mg capsule Take 1 capsule by mouth two times a day. (Dr. Dasilva) levalbuterol tartrate HFA 45 mcg/actuation inhaler Inhale 1-2 Puffs as instructed every 6 hours as needed for wheezing/shortness of breath. risperiDONE (RISPERDAL) 3 mg tablet Take 1 tablet by mouth twice daily. cloNIDine HCl (CATAPRES) 0.1 mg tablet Takes 1 to 2 pills daily as needed. (per Mother) For anger divalproex ER 500 mg 24 hr tablet Take 1,000 mg by mouth twice daily. FAMILY HISTORY Problem Relation Age of Onset Colon Cancer Father 50's Diabetes Father Hypertension Father Cancer Father Colon Colon Polyps Mother large polyp other (Hypothyroidism [Other]) Mother Colon Polyps Brother Colon Cancer Maternal Grandmother 34 Cancer Maternal Grandmother from breast and uterine cancer Macular Degen Maternal Grandfather Diabetes Maternal Grandfather Colon Cancer Paternal Grandfather late 60's Cancer Paternal Grandfather from Colon Cancer Social History Tobacco Use Smoking status: Never Smokeless tobacco: Never Vaping Use Vaping status: Never Used Substance Use Topics Alcohol use: Never Drug use: Never Objective Physical Exam Vitals and nursing note reviewed. Constitutional: General: He is not in acute distress. Appearance: Normal appearance. He is not ill-appearing. HENT: Right Ear: Tympanic membrane, ear canal and external ear normal. Left Ear: Tympanic membrane, ear canal and external ear normal. Nose: Congestion and rhinorrhea present. Mouth/Throat: Mouth: Mucous membranes are moist. Pharynx: Oropharynx is clear. Uvula midline. No oropharyngeal exudate or posterior oropharyngeal erythema. Cardiovascular: Rate and Rhythm: Normal rate and regular rhythm. Heart sounds: Normal heart sounds. Pulmonary: Effort: Pulmonary effort is normal. No respiratory distress. Breath sounds: Normal breath sounds. No wheezing or rales. Musculoskeletal: Cervical back: Neck supple. Lymphadenopathy: Cervical: No cervical adenopathy. Skin: General: Skin is warm and dry. Findings: No erythema or rash. Neurological: Mental Status: He is alert. ASSESSMENT/PLAN: 1. Flu-like symptoms - ICD9: 780.99, ICD10: R68.89 (primary diagnosis) - INFLUENZA AANDB MOLECULAR (POC) - COVID AND INFLUENZA A/B AND RSV PCR, ROUTINE 2. Acute upper r (more content not included)... [facility] 10-10-2024 History of Presen t illness Narrative Subjective Nasal Congestion Associated symptoms include congestion, coughing and shortness of breath. Pertinent negatives include no chills, headaches or sore throat. Niko Brooke is a 34 year old male who presents with cough, fever, runny nose, loss of taste and smell. Symptom onset 2 days ago. He has had some sinus pressure and shortness of breath. He was exposed to a family member with influenza A. Review of Systems Constitutional: Negative for chills and fever. HENT: Positive for congestion. Negative for sore throat. Respiratory: Positive for cough and shortness of breath. Cardiovascular: Negative. Gastrointestinal: Negative for diarrhea, nausea and vomiting. Musculoskeletal: Negative for myalgias. Neurological: Negative for headaches. BP 136/78 Pulse 104 Temp 36.3 C (97.3 F) Resp 20 Wt (!) 162.8 kg (358 lb 14.5 oz) SpO2 95% BMI 46.08 kg/m PAST MEDICAL HISTORY Diagnosis Date Asthma 03/05/2010 ATTN DEFICIT NONHYPERACT 04/18/2006 Congenital pes planus 09/27/2010 DEPRESSIVE DISORDER NEC 04/18/2006 Encopresis 12/15/2014 Enuresis 12/15/2014 Excessive anger 07/14/2012 followed by psychiatry Family history of colon cancer Maternal Grandmother was 33years old when diagnosed and from colon cancer (will need colonoscopy at 28years old for screeening) Mental retardation, moderate (I.Q. 35-49) 10/12/2007 Obesity 12/15/2014 S/P lumbar laminectomy 09/2019 Dr. Weinstein Spinal stenosis of lumbar region with neurogenic claudication 05/10/2019 PAST SURGICAL HISTORY Procedure Laterality Date CIRCUMCISION LAMINECTOMY,LUMBAR 09/2019 L3,4,5 Dr. Weinstein TONSILLECTOMY & ADENOIDECTOMY <AGE 12 ALLERGIES Seasonal Allergies MEDICATIONS lisinopril (ZESTRIL) 10 mg tablet Take 1 tablet by mouth once daily. Take with 5 mg lisinopril once daily lisinopril (ZESTRIL) 5 mg tablet Take 1 tablet by mouth once daily. Take with 10 mg lisinopril once daily omeprazole (PRILOSEC) 40 mg capsule Take 1 capsule by mouth once daily. dulaglutide (TRULICITY) 4.5 mg/0.5 mL pen injector Inject 4.5 mg subcutaneously one time a week. triamcinolone (KENALOG) 0.025 % cream Apply 1 application to affected area two times a day. Up to 14 days per rash gabapentin (NEURONTIN) 300 mg capsule Take 1 capsule by mouth two times a day. CPAP/BIPAP/OTHER Type .CPAPSettings into a note to see current settings/supplies/DME information. DULoxetine (CYMBALTA) 60 mg capsule Take 1 capsule by mouth two times a day. (Dr. Dasilva) levalbuterol tartrate HFA 45 mcg/actuation inhaler Inhale 1-2 Puffs as instructed every 6 hours as needed for wheezing/shortness of breath. risperiDONE (RISPERDAL) 3 mg tablet Take 1 tablet by mouth twice daily. cloNIDine HCl (CATAPRES) 0.1 mg tablet Takes 1 to 2 pills daily as needed. (per Mother) For anger divalproex ER 500 mg 24 hr tablet Take 1,000 mg by mouth twice daily. FAMILY HISTORY Problem Relation Age of Onset Colon Cancer Father 50's Diabetes Father Hypertension Father Cancer Father Colon Colon Polyps Mother large polyp other (Hypothyroidism [Other]) Mother Colon Polyps Brother Colon Cancer Maternal Grandmother 34 Cancer Maternal Grandmother from breast and uterine cancer Macular Degen Maternal Grandfather Diabetes Maternal Grandfather Colon Cancer Paternal Grandfather late 60's Cancer Paternal Grandfather from Colon Cancer Social History Tobacco Use Smoking status: Never Smokeless tobacco: Never Vaping Use Vaping status: Never Used Substance Use Topics Alcohol use: Never Drug use: Never Objective Physical Exam Vitals and nursing note reviewed. Constitutional: General: He is not in acute distress. Appearance: Normal appearance. He is not ill-appearing. HENT: Right Ear: Tympanic membrane, ear canal and external ear normal. Left Ear: Tympanic membrane, ear canal and external ear normal. Nose: Congestion and rhinorrhea present. Mouth/Throat: Mouth: Mucous membranes are moist. Pharynx: Oropharynx is clear. Uvula midline. No oropharyngeal exudate or posterior oropharyngeal erythema. Cardiovascular: Rate and Rhythm: Normal rate and regular rhythm. Heart sounds: Normal heart sounds. Pulmonary: Effort: Pulmonary effort is normal. No respiratory distress. Breath sounds: Normal breath sounds. No wheezing or rales. Musculoskeletal: Cervical back: Neck supple. Lymphadenopathy: Cervical: No cervical adenopathy. Skin: General: Skin is warm and dry. Findings: No erythema or rash. Neurological: Mental Status: He is alert. ASSESSMENT/PLAN: 1. Flu-like symptoms - ICD9: 780.99, ICD10: R68.89 (primary diagnosis) - INFLUENZA A&B MOLECULAR (POC) - COVID & INFLUENZA A/B & RSV PCR, ROUTINE 2. Acute upper respiratory infection, unspecified - ICD9: 465.9, ICD10: J06.9 - Discussed viral etiology and rationale for treatment. - Symptomatic treatment with prn analgesia - Supportive care with fluids and rest - COVID & INFLUENZA A/B & RSV PCR, ROUTINE 3. Influenza A - ICD9: 487.1, ICD10: J10.1 - OSELTAMIVIR 75 MG CAPSULE Office Visit on 10/10/2024 Component Date Value Ref Range Status Flu A (POCT) 10/10/2024 Positive (A) Negative Final Location:[facility], [address] [place] [address], [place], [address] Procedural Control 10/10/2024 Valid Final You have tested positive for influenza A. Recommend supportive therapy at home. - Drink PLENTY of fluids (Gatorade/Pedialyte, tea) and get PLENTY of rest - Vaporizers, humidifiers, hot showers, and warm fluids help open respiratory and sinus passages (helps with cough and congestion) - Saline nose spray - Tylenol or ibuprofen as needed for fever and/or discomfort - Cover cough and wash hands frequently to prevent the spread of germs. Influenza can be spread through contact with respiratory secretions (through sneezing, coughing, talking, touching) or contaminated objects. You can be contagious from before your symptoms began and for several days after. - Follow-up with your PCP in 3-5 days if symptoms have not improved or sooner if symptoms worsen - Discussed red flags and need for immediate medical evaluation if any occur. - Discussed supportive care treatment with fluids, rest and analgesia. - Discussed expected course of illness Brandee Mcmanus APRN.CNP documented in this encounter [facility] 08-18-2024 Telephone encounter Note The following approved medication requests have been transmitted electronically. Requested Prescriptions Signed Prescriptions Disp Refills lisinopril (ZESTRIL) 10 mg tablet 30 tablet 11 Sig: Take 1 tablet by mouth once daily. Take with 5 mg lisinopril once daily Authorizing Provider: HECTOR CURRIE lisinopril (ZESTRIL) 5 mg tablet 30 tablet 11 Sig: Take 1 tablet by mouth once daily. Take with 10 mg lisinopril once daily Authorizing Provider: HECTOR CURRIE omeprazole (PRILOSEC) 40 mg capsule 30 capsule 11 Sig: Take 1 capsule by mouth once daily. Authorizing Provider: HECTOR CURRIE dulaglutide (TRULICITY) 4.5 mg/0.5 mL pen injector 2 mL 2 Sig: Inject 4.5 mg subcutaneously one time a week. Authorizing Provider: HECTOR CURRIE triamcinolone (KENALOG) 0.025 % cream 30 g 3 Sig: Apply 1 application to affected area two times a day. Up to 14 days per rash Authorizing Provider: HECTOR CURRIE gabapentin (NEURONTIN) 300 mg capsule 60 capsule 11 Sig: Take 1 capsule by mouth two times a day. Authorizing Provider: HECTOR CURRIE MD [facility] 08-18-2024 Miscellaneous Notes The following approved medication requests have been transmitted electronically. Requested Prescriptions Signed Prescriptions Disp Refills lisinopril (ZESTRIL) 10 mg tablet 30 tablet 11 Sig: Take 1 tablet by mouth once daily. Take with 5 mg lisinopril once daily Authorizing Provider: HECTOR CURRIE lisinopril (ZESTRIL) 5 mg tablet 30 tablet 11 Sig: Take 1 tablet by mouth once daily. Take with 10 mg lisinopril once daily Authorizing Provider: HECTOR CURRIE omeprazole (PRILOSEC) 40 mg capsule 30 capsule 11 Sig: Take 1 capsule by mouth once daily. Authorizing Provider: HECTOR CURRIE dulaglutide (TRULICITY) 4.5 mg/0.5 mL pen injector 2 mL 2 Sig: Inject 4.5 mg subcutaneously one time a week. Authorizing Provider: HECTOR CURRIE triamcinolone (KENALOG) 0.025 % cream 30 g 3 Sig: Apply 1 application to affected area two times a day. Up to 14 days per rash Authorizing Provider: HECTOR CURRIE gabapentin (NEURONTIN) 300 mg capsule 60 capsule 11 Sig: Take 1 capsule by mouth two times a day. Authorizing Provider: HECTOR CURRIE MD Patient's mother calls asking about the status of this request. Patient is needing medications to be sent to pharmacy. Barbara Posada RN Patient's mother Lanie, calling and states patient will be using [facility] now and requesting all of pt's medication be transferred there. Pended. No call back needed if agreeable to send. Lianne Caldwell RN documented in this encounter [facility] 08-18-2024 Telephone encounter Note Patient's mother calls asking about the status of this request. Patient is needing medications to be sent to pharmacy. Barbara Posada RN [facility] 08-15-2024 Telephone encounter Note Patient's mother Lanie, calling and states patient will be using [facility] now and requesting all of pt's medication be transferred there. Pended. No call back needed if agreeable to send. Lianne Caldwell RN [facility] 08-15-2024 Instructions Hector Currie MD - 08/15/2024 9:13 AM EST - Continue using your CPAP machine every night to maintain good sleep quality. - Resume taking Trulicity as prescribed once it becomes available at your pharmacy. - Continue taking Gabapentin as prescribed; refills are available. - Refill your Lisinopril prescription. - Refill your Omeprazole prescription. - Maintain a healthy diet, incorporating more vegetables like green beans and edamame. - Consider adding omega-3 rich foods such as marine fish (tuna, salmon), ground flaxseed, and walnuts to your diet to improve cholesterol levels. - Complete the urine test to check for protein in the kidneys; no fasting is required. - Schedule an eye exam with your eye doctor and remind them to send the results to us. documented in this encounter [facility] 08-15-2024 Note HNO ID: [id number] Author: HECTOR CURRIE MD Service: ? Author Type: Physician Type: Progress Notes Filed: 09/12/2024 18:14 Note Text: This note was created using [employer]. Subjective Niko Brooke is a 34 year old male. No chief complaint on file. SUBJECTIVE: Niko Brooke is a 34 year old year old gentleman here today for 4 month follow up appointment for review of medical conditions. - CPAP: Uses every night AND getting benefit - is able to fall asleep and stay asleep and wakes up rested - HTN: Taking medications without SE, no symptoms of hypo- or hypertension - Needs Refill on Trulicity - Blood sugar doing well, watching his diet, well balanced meals - Asthma well controlled, has not needed inhaler recently, primarily uses it when sick Niko Brooke is a 34-year-old male with a history of DWIGHT, HTN, and GERD, presenting for follow-up. Niko reports consistent use of CPAP therapy, which has improved his sleep quality. He is currently taking antihypertensive medication and denies any side effects. Recent blood pressure readings have been below 140/90 mmHg, with previous readings ranging from 110-120 mmHg systolic. Niko is also on Trulicity for glycemic control and weight management. He missed his dose this week due to pharmacy supply issues but plans to switch pharmacies to avoid future disruptions. He reports dietary improvements, including increased vegetable intake and mindful eating habits. However, he notes increased snacking on peanut butter and jelly sandwiches since missing his Trulicity dose. He is also taking Cymbalta, gabapentin, lisinopril, and omeprazole, and is due for refills on lisinopril and omeprazole. He denies any issues with anxiety. He has not yet scheduled an eye exam for this year. PAST MEDICAL HISTORY Diagnosis Date Asthma 03/05/2010 ATTN DEFICIT NONHYPERACT 04/18/2006 Congenital pes planus 09/27/2010 DEPRESSIVE DISORDER NEC 04/18/2006 Encopresis 12/15/2014 Enuresis 12/15/2014 Excessive anger 07/14/2012 followed by psychiatry Family history of colon cancer Maternal Grandmother was 33years old when diagnosed and from colon cancer (will need colonoscopy at 28years old for screeening) Mental retardation, moderate (I.Q. 35-49) 10/12/2007 Obesity 12/15/2014 S/P lumbar laminectomy 09/2019 Dr. Weinstein Spinal stenosis of lumbar region with neurogenic claudication 05/10/2019 Current Outpatient Medications Medication Sig dulaglutide (TRULICITY) 4.5 mg/0.5 mL pen injector Inject 4.5 mg subcutaneously one time a week. triamcinolone (KENALOG) 0.025 % cream Apply 1 application to affected area two times a day. Up to 14 days per rash gabapentin (NEURONTIN) 300 mg capsule Take 1 capsule by mouth two times a day. CPAP/BIPAP/OTHER Type .CPAPSettings into a note to see current settings/supplies/DME information. DULoxetine (CYMBALTA) 60 mg capsule Take 1 capsule by mouth two times a day. (Dr. Dasilva) omeprazole (PRILOSEC) 40 mg capsule Take 1 capsule by mouth once daily. lisinopril (ZESTRIL) 5 mg tablet Take 1 tablet by mouth once daily. Take with 10 mg lisinopril once daily lisinopril (ZESTRIL) 10 mg tablet Take 1 tablet by mouth once daily. Take with 5 mg lisinopril once daily levalbuterol tartrate HFA 45 mcg/actuation inhaler Inhale 1-2 Puffs as instructed every 6 hours as needed for wheezing/shortness of breath. risperiDONE (RISPERDAL) 3 mg tablet Take 1 tablet by mouth twice daily. cloNIDine HCl (CATAPRES) 0.1 mg tablet Takes 1 to 2 pills daily as needed. (per Mother) For anger divalproex ER 500 mg 24 hr tablet Take 1,000 mg by mouth twice daily. No current facility-administered medications for this visit. Review of Systems All other systems reviewed and are negative. Objective BP 134/80 Pulse 98 Temp 36.4 ?C (97.5 ?F) Resp 16 Wt (!) 162 kg (357 lb 2.3 oz) SpO2 96% BMI 45.85 kg/m? Last 5 Encounter Wt Readings: Date: Wt: 08/15/2024 162 kg (357 lb 2.3 oz) 06/14/2024 155.4 kg (342 lb 9.5 oz) 05/09/2024 156.3 kg (344 lb 9.3 oz) 04/05/2024 161.5 kg (356 lb 0.7 oz) 12/01/2023 162.8 kg (359 lb) No waist measurement recorded Estimated body mass index is 45.85 kg/m? as calculated from the following: Height as of 02/05/22: 188 cm (6' 2"). Weight as of this encounter: 162 kg (357 lb 2.3 oz). Last 5 Encounter BP Readings: Date: BP: 08/15/2024 134/80 06/14/2024 124/74 05/09/2024 120/66 04/05/2024 112/78 12/01/2023 118/64 08/15/24 0826 08/15/24 0909 BP: 134/80 118/70 Pulse: 98 Resp: 16 Temp: 36.4 ?C (97.5 ?F) SpO2: 96% Weight: (!) 162 kg (357 lb 2.3 oz) Physical Exam Constitutional: General: He is not in acute distress. Appearance: Normal appearance. HENT: Head: Normocephalic and atraumatic. Cardiovascular: Rate and Rhythm: Normal rate and regular rhythm. Heart sounds: Normal heart sounds. Pulmonary: Effort: Pulmonary effort is normal. Breath sounds: Cris (more content not included)... [facility] 08-15-2024 History of Presen t illness Narrative This note was created using [employer]. Subjective Niko Brooke is a 34 year old male. No chief complaint on file. SUBJECTIVE: Niko Brooke is a 34 year old year old gentleman here today for 4 month follow up appointment for review of medical conditions. - CPAP: Uses every night & getting benefit - is able to fall asleep and stay asleep and wakes up rested - HTN: Taking medications without SE, no symptoms of hypo- or hypertension - Needs Refill on Trulicity - Blood sugar doing well, watching his diet, well balanced meals - Asthma well controlled, has not needed inhaler recently, primarily uses it when sick Niko Brooke is a 34-year-old male with a history of DWIGHT, HTN, and GERD, presenting for follow-up. Niko reports consistent use of CPAP therapy, which has improved his sleep quality. He is currently taking antihypertensive medication and denies any side effects. Recent blood pressure readings have been below 140/90 mmHg, with previous readings ranging from 110-120 mmHg systolic. Niko is also on Trulicity for glycemic control and weight management. He missed his dose this week due to pharmacy supply issues but plans to switch pharmacies to avoid future disruptions. He reports dietary improvements, including increased vegetable intake and mindful eating habits. However, he notes increased snacking on peanut butter and jelly sandwiches since missing his Trulicity dose. He is also taking Cymbalta, gabapentin, lisinopril, and omeprazole, and is due for refills on lisinopril and omeprazole. He denies any issues with anxiety. He has not yet scheduled an eye exam for this year. PAST MEDICAL HISTORY Diagnosis Date Asthma 03/05/2010 ATTN DEFICIT NONHYPERACT 04/18/2006 Congenital pes planus 09/27/2010 DEPRESSIVE DISORDER NEC 04/18/2006 Encopresis 12/15/2014 Enuresis 12/15/2014 Excessive anger 07/14/2012 followed by psychiatry Family history of colon cancer Maternal Grandmother was 33years old when diagnosed and from colon cancer (will need colonoscopy at 28years old for screeening) Mental retardation, moderate (I.Q. 35-49) 10/12/2007 Obesity 12/15/2014 S/P lumbar laminectomy 09/2019 Dr. Weinstein Spinal stenosis of lumbar region with neurogenic claudication 05/10/2019 Current Outpatient Medications Medication Sig dulaglutide (TRULICITY) 4.5 mg/0.5 mL pen injector Inject 4.5 mg subcutaneously one time a week. triamcinolone (KENALOG) 0.025 % cream Apply 1 application to affected area two times a day. Up to 14 days per rash gabapentin (NEURONTIN) 300 mg capsule Take 1 capsule by mouth two times a day. CPAP/BIPAP/OTHER Type .CPAPSettings into a note to see current settings/supplies/DME information. DULoxetine (CYMBALTA) 60 mg capsule Take 1 capsule by mouth two times a day. (Dr. Dasilva) omeprazole (PRILOSEC) 40 mg capsule Take 1 capsule by mouth once daily. lisinopril (ZESTRIL) 5 mg tablet Take 1 tablet by mouth once daily. Take with 10 mg lisinopril once daily lisinopril (ZESTRIL) 10 mg tablet Take 1 tablet by mouth once daily. Take with 5 mg lisinopril once daily levalbuterol tartrate HFA 45 mcg/actuation inhaler Inhale 1-2 Puffs as instructed every 6 hours as needed for wheezing/shortness of breath. risperiDONE (RISPERDAL) 3 mg tablet Take 1 tablet by mouth twice daily. cloNIDine HCl (CATAPRES) 0.1 mg tablet Takes 1 to 2 pills daily as needed. (per Mother) For anger divalproex ER 500 mg 24 hr tablet Take 1,000 mg by mouth twice daily. No current facility-administered medications for this visit. Review of Systems All other systems reviewed and are negative. Objective BP 134/80 Pulse 98 Temp 36.4 C (97.5 F) Resp 16 Wt (!) 162 kg (357 lb 2.3 oz) SpO2 96% BMI 45.85 kg/m Last 5 Encounter Wt Readings: Date: Wt: 08/15/2024 162 kg (357 lb 2.3 oz) 06/14/2024 155.4 kg (342 lb 9.5 oz) 05/09/2024 156.3 kg (344 lb 9.3 oz) 04/05/2024 161.5 kg (356 lb 0.7 oz) 12/01/2023 162.8 kg (359 lb) No waist measurement recorded Estimated body mass index is 45.85 kg/m as calculated from the following: Height as of 02/05/22: 188 cm (6' 2"). Weight as of this encounter: 162 kg (357 lb 2.3 oz). Last 5 Encounter BP Readings: Date: BP: 08/15/2024 134/80 06/14/2024 124/74 05/09/2024 120/66 04/05/2024 112/78 12/01/2023 118/64 08/15/24 0826 08/15/24 0909 BP: 134/80 118/70 Pulse: 98 Resp: 16 Temp: 36.4 C (97.5 F) SpO2: 96% Weight: (!) 162 kg (357 lb 2.3 oz) Physical Exam Constitutional: General: He is not in acute distress. Appearance: Normal appearance. HENT: Head: Normocephalic and atraumatic. Cardiovascular: Rate and Rhythm: Normal rate and regular rhythm. Heart sounds: Normal heart sounds. Pulmonary: Effort: Pulmonary effort is normal. Breath sounds: Normal breath sounds. Neurological: Mental Status: He is alert. Latest Ref Rng 07/27/2023 03/26/2024 07/30/2024 Protein, Total 6.3 - 8.0 g/dL 6.5 6.9 6.6 Albumin 3.9 - 4.9 g/dL 4.1 4.4 4.3 Calcium 8.5 - 10.2 mg/dL 9.2 9.7 9.3 Bilirubin, Total 0.2 - 1.3 mg/dL 0.2 0.3 0.4 Alkaline Phosphatase 38 - 113 U/L 56 54 53 AST 14 - 40 U/L 15 20 21 ALT 10 - 54 U/L 15 17 17 Glucose 74 - 99 mg/dL 169 (H) 110 (H) 94 BUN 9 - 24 mg/dL 12 15 9 Creatinine 0.73 - 1.22 mg/dL 0.63 (L) 0.65 (L) 0.59 (L) Sodium 136 - 144 mmol/L 139 137 139 Potassium 3.7 - 5.1 mmol/L 4.5 5.0 5.0 Chloride 98 - 107 mmol/L 101 98 99 CO2 22 - 30 mmol/L 27 27 27 Anion Gap 8 - 15 mmol/L 11 12 13 eGFR >=60 mL/min/1.73m 130 129 132 WBC 3.70 - 11.00 k/uL 9.77 8.29 RBC 4.20 - 6.00 m/uL 4.82 5.00 Hemoglobin 13.0 - 17.0 g/dL 14.1 14.6 Hematocrit 39.0 - 51.0 % 42.8 44.2 MCV 80.0 - 100.0 fL 88.8 88.4 MCH 26.0 - 34.0 pg 29.3 29.2 MCHC 30.5 - 36.0 g/dL 32.9 33.0 RDW-CV 11.5 - 15.0 % 11.9 12.0 Platelet Count 150 - 400 k/uL 182 198 MPV 9.0 - 12.7 fL 11.7 11.2 Absolute nRBC <0.01 k/uL <0.01 <0.01 Cholesterol, Total <200 mg/dL 183 178 Triglyceride <150 mg/dL 263 (H) 188 (H) HDL Cholesterol >39 mg/dL 27 (L) 29 (L) Non HDL Cholesterol <130 mg/dL 156 (H) 149 (H) Fasting Time hrs 10 11 VLDL Cholesterol <30 mg/dL 53 (H) 38 (H) TC:HDL Ratio <5.10 6.78 (H) 6.14 (H) LDL Cholesterol <100 mg/dL 103 (H) 111 (H) LDL:HDL Ratio <2.54 3.81 (H) 3.83 (H) Total Cholesterol, Nonfasting <200 mg/dL 170 Triglycerides, Nonfasting <150 mg/dL 302 (H) HDL Cholesterol, Nonfasting >39 mg/dL 26 (L) LDL Cholesterol, Nonfasting <100 mg/dL 84 Non HDL Cholesterol, Nonfasting <130 mg/dL 144 (H) VLDL Cholesterol, Nonfasting <30 mg/dL 60 (H) Total Chol/HDL Ratio, Nonfasting <5.10 mg/dL 6.54 (H) LDL/HDL Ratio, Nonfasting <2.54 mg/dL 3.23 (H) Hemoglobin A1C 4.3 - 5.6 % 5.1 5.5 5.3 Estimated Average Glucose mg/dL 100 111 105 Prolactin 4.0 - 15.2 ng/mL 27.5 (H) Valproic Acid 50.0 - 100.0 ug/mL 72.8 Ammonia 16 - 60 umol/L 20 Legend: (H) High (L) Low Assessment and Plan # Primary hypertension (I10) - Blood pressure well-controlled with current medication regimen; recent reading 118/70 mmHg. - Continue current antihypertensive therapy. # Controlled type 2 diabetes mellitus without complication, without long-term current use of insulin (HCC) (E11.9) - Hemoglobin A1c remains stable at 5.3%. - Ordered urine microalbumin test to monitor renal function; previous order , new order placed. - Patient to schedule an eye exam to monitor for diabetic retinopathy. # DWIGHT on CPAP (G47.33) - Patient is compliant with CPAP therapy, using it every night and benefits from use with improved sleep quality. - Continue current CPAP use. # Gastroesophageal reflux disease, unspecified whether esophagitis present (K21.9) - Refill for omeprazole sent to pharmacy. # Class 3 severe obesity due to excess calories with body mass index (BMI) of 45.0 to 49.9 in adult, unspecified whether serious comorbidity present ([facility]) (E66.813) - Weight is trending down; patient is making dietary changes, including increased vegetable intake. - Experiencing issues with Trulicity availability; prescription is current, advised patient to discuss pharmacy options. - Continue current dietary modifications and monitor weight. # Encounter for screening examination for other mental health and behavioral disorders (Z13.39) - No signs of anxiety or other mental health disorders observed. Hector Currie MD documented in this encounter [facility] 08-09-2024 Telephone encounter Note Patient has been identified by name and date of : Yes Patient phones for refill(s): Requested Prescriptions Pending Prescriptions Disp Refills dulaglutide (TRULICITY) 3 mg/0.5 mL pen injector 2 mL 2 Sig: Inject 3 mg subcutaneously one time a week. Date of last office visit in primary care: 06/14/2024 Date of next office visit in primary care: 08/15/2024 Please advise. Thank you. Madina Webber LPN.' [facility] 08-09-2024 Miscellaneous Notes Patient has been identified by name and date of : Yes Patient phones for refill(s): Requested Prescriptions Pending Prescriptions Disp Refills dulaglutide (TRULICITY) 3 mg/0.5 mL pen injector 2 mL 2 Sig: Inject 3 mg subcutaneously one time a week. Date of last office visit in primary care: 06/14/2024 Date of next office visit in primary care: 08/15/2024 Please advise. Thank you. Madina Webber LPN.' documented in this encounter [facility] 07-29-2024 Telephone encounter Note Patient MyChart message requesting the following refill Refill(s) Requested: Requested Prescriptions Pending Prescriptions Disp Refills triamcinolone (KENALOG) 0.025 % cream 30 g 3 Sig: Apply 1 application to affected area two times a day. Up to 14 days per rash ALLERGIES Allergen Reactions Seasonal Allergies Unknown (home) [phone] (cell) Last Office Visit Date: 06/14/2024 Last [facility] Visit: Visit date not found Future Appointment: 08/15/2024 The patients preferred pharmacy has been captured for this encounter? yes Request is for script(s) to be escript to pharmacy. Teresa Menendez LPN [facility] 07-29-2024 Miscellaneous Notes Patient MyChart message requesting the following refill Refill(s) Requested: Requested Prescriptions Pending Prescriptions Disp Refills triamcinolone (KENALOG) 0.025 % cream 30 g 3 Sig: Apply 1 application to affected area two times a day. Up to 14 days per rash ALLERGIES Allergen Reactions Seasonal Allergies Unknown (home) [phone] (cell) Last Office Visit Date: 06/14/2024 Last [facility] Visit: Visit date not found Future Appointment: 08/15/2024 The patients preferred pharmacy has been captured for this encounter? yes Request is for script(s) to be escript to pharmacy. Teresa Menendez LPN documented in this encounter [facility] 07-29-2024 Telephone encounter Note Pt coming in on Thursday to get fasting lab work done. The patient has been identified by name and date of : Yes Caregiver verified no other encounters exist for this prescription request: Yes Caregiver confirmed with patient/requestor that no other refills are due, in the near future, with this provider at this time: Yes The last office visit in the department: 06/14/2024 Does the patient have a future office visit with this provider/department: Yes 08/15/2024 Requested Prescriptions Pending Prescriptions Disp Refills gabapentin (NEURONTIN) 300 mg capsule 60 capsule 11 Sig: Take 1 capsule by mouth two times a day. Antoinette Sommer LPN July 29, 2024 12:[address] [facility] 07-29-2024 Miscellaneous Notes Pt coming in on Thursday to get fasting lab work done. The patient has been identified by name and date of : Yes Caregiver verified no other encounters exist for this prescription request: Yes Caregiver confirmed with patient/requestor that no other refills are due, in the near future, with this provider at this time: Yes The last office visit in the department: 06/14/2024 Does the patient have a future office visit with this provider/department: Yes 08/15/2024 Requested Prescriptions Pending Prescriptions Disp Refills gabapentin (NEURONTIN) 300 mg capsule 60 capsule 11 Sig: Take 1 capsule by mouth two times a day. Antoinette Sommer LPN July 29, 2024 12:36 PM documented in this encounter [facility] 07-13-2024 Telephone encounter Note Prescription Refill Information The patient has been identified by name and date of : Yes Caregiver verified no other encounters exist for this prescription request: Yes Caregiver confirmed with patient/requestor that no other refills are due, in the near future, with this provider at this time: Yes The last office visit in the department: 06/14/24 Does the patient have a future office visit with this provider/department: Yes 08/15/24 Requested Prescriptions Pending Prescriptions Disp Refills dulaglutide (TRULICITY) 3 mg/0.5 mL pen injector 2 mL 2 Sig: Inject 3 mg subcutaneously one time a week. Pauline Hein LPN July 13, 2024 8:[address] [facility] 07-13-2024 Miscellaneous Notes Prescription Refill Information The patient has been identified by name and date of : Yes Caregiver verified no other encounters exist for this prescription request: Yes Caregiver confirmed with patient/requestor that no other refills are due, in the near future, with this provider at this time: Yes The last office visit in the department: 06/14/24 Does the patient have a future office visit with this provider/department: Yes 08/15/24 Requested Prescriptions Pending Prescriptions Disp Refills dulaglutide (TRULICITY) 3 mg/0.5 mL pen injector 2 mL 2 Sig: Inject 3 mg subcutaneously one time a week. Pauline Hein LPN July 13, 2024 8:31 AM documented in this encounter [facility] 07-04-2024 Telephone encounter Note Orders faxed and mother Lanie, aware of same. [facility] 07-04-2024 Miscellaneous Notes Orders faxed and mother Lanie, aware of same. New orders placed, please send updated orders and updated sleep study results. Thanks. Patient had sleep study completed 06/29/24. Results on Liudmila's desk for review. Fax order for CPAP to [facility]. documented in this encounter [facility] 07-04-2024 Telephone encounter Note New orders placed, please send updated orders and updated sleep study results. Thanks. [facility] 07-04-2024 Telephone encounter Note Patient had sleep study completed 06/29/24. Results on Liudmila's desk for review. Fax order for CPAP to [facility]. [facility] 06-20-2024 Telephone encounter Note Order has been faxed and mother aware of same. [facility] 06-20-2024 Miscellaneous Notes Order has been faxed and mother aware of same. Patient mother Lanie returned call and went over notes below from Liudmila breaux [employer]NA[employer] with understanding. Mother is asking to have orders faxed to [facility] please. Left message for return call. Order placed, prior sleep study done at [facility], please clarify that they would like orders sent there for the repeat study and send both the sleep study and titration study orders to see if a split study can be done. Thanks Patient's mother calls back and notified of below. Mother voices understanding. Mother states that patient is willing to do another sleep study. Please place these orders. Barbara Posada RN Left message for return call. Can we please check with patient and his mom to see if willing to do another study. Please let them know the note from [facility]. Thanks. Fax received from [employer] stating the order for the BIPAP has been declined. Mentioning that patient needs a new in lab sleep study and new initial consult notes due to being noncompliant with BIPAP earlier this year. documented in this encounter [facility] 06-20-2024 Telephone encounter Note Patient mother Lanie returned call and went over notes below from Liudmila breaux MANA[employer] with understanding. Mother is asking to have orders faxed to [facility] please. [facility] 06-20-2024 Telephone encounter Note Left message for return call. [facility] 06-20-2024 Telephone encounter Note Order placed, prior sleep study done at [facility], please clarify that they would like orders sent there for the repeat study and send both the sleep study and titration study orders to see if a split study can be done. Thanks [facility] 06-20-2024 Telephone encounter Note Patient's mother calls back and notified of below. Mother voices understanding. Mother states that patient is willing to do another sleep study. Please place these orders. Barbara Posada RN [facility] 06-17-2024 Telephone encounter Note Left message for return call. [facility] 06-17-2024 Telephone encounter Note Can we please check with patient and his mom to see if willing to do another study. Please let them know the note from [facility]. Thanks. [facility] 06-17-2024 Telephone encounter Note Fax received from [employer] stating the order for the BIPAP has been declined. Mentioning that patient needs a new in lab sleep study and new initial consult notes due to being noncompliant with BIPAP earlier this year. [facility] 06-14-2024 Note HNO ID: [id number] Author: LIUDMILA BREAUX APRN.CNP Service: ? Author Type: Nurse Practitioner Type: Progress Notes Filed: 06/22/2024 12:13 Note Text: SUBJECTIVE Niko Brooke is a 34 year old male here today for a check up on his medical problems. Chief Complaint Patient presents with: discuss getting back on BiPAP: Has not used it in 6 months or longer, no longer has the machine at home. HPI Niko Brooke is a 34 year old male. He presents today to discuss orders for a bipap. Accompanied by his mom. Notes prior orders for bipap but had compliance issues so machine was taken back by [employer]. Ready to use this more. Last sleep study was a titration study within the last year, recommended auto bipap with ipap max 10 and epap 9, ps of 4. His medications were reviewed today and his list is now up to date. Medications Current Outpatient Medications Medication Sig triamcinolone (KENALOG) 0.025 % cream Apply 1 application to affected area two times a day. Up to 14 days per rash dulaglutide (TRULICITY) 3 mg/0.5 mL pen injector Inject 3 mg subcutaneously one time a week. DULoxetine (CYMBALTA) 60 mg capsule Take 1 capsule by mouth two times a day. (Dr. Dasilva) omeprazole (PRILOSEC) 40 mg capsule Take 1 capsule by mouth once daily. lisinopril (ZESTRIL) 5 mg tablet Take 1 tablet by mouth once daily. Take with 10 mg lisinopril once daily lisinopril (ZESTRIL) 10 mg tablet Take 1 tablet by mouth once daily. Take with 5 mg lisinopril once daily levalbuterol tartrate HFA 45 mcg/actuation inhaler Inhale 1-2 Puffs as instructed every 6 hours as needed for wheezing/shortness of breath. gabapentin (NEURONTIN) 300 mg capsule Take 1 capsule by mouth two times a day. risperiDONE (RISPERDAL) 3 mg tablet Take 1 tablet by mouth twice daily. cloNIDine HCl (CATAPRES) 0.1 mg tablet Takes 1 to 2 pills daily as needed. (per Mother) For anger divalproex ER 500 mg 24 hr tablet Take 1,000 mg by mouth twice daily. CPAP/BIPAP/OTHER Type .CPAPSettings into a note to see current settings/supplies/DME information. dulaglutide (TRULICITY) 1.5 mg/0.5 mL pen injector Inject 1.5 mg subcutaneously one time a week. Fill this RX if the 3mg dose is not available. (Patient not taking: Reported on 06/14/2024) No current facility-administered medications for this visit. ALLERGIES Allergen Reactions Seasonal Allergies Unknown ACTIVE PROBLEM LIST Diabetes Mellitus Type 2, Controlled, Without Complications ([facility]) - 09/28/2023 Gerd (Gastroesophageal Reflux Disease) - 02/05/2022 Prediabetes - 02/05/2022 Family History of Colon Cancer - 02/05/2022 Colon Cancer Screening - 02/05/2022 Primary Hypertension - 05/15/2020 S/P Lumbar Laminectomy - 09/24/2019 Comment: Dr. 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 Reactive Depression - 04/18/2006 Attention Deficit Disorder - 04/18/2006 Social History Tobacco Use Smoking status: Never Smokeless tobacco: Never Vaping Use Vaping status: Never Used Substance Use Topics Alcohol use: Never Drug use: Never Review of Systems Respiratory: Negative. Cardiovascular: Negative. OBJECTIVE BP 124/74 Pulse 88 Resp 18 Wt 342 lb 9.5 oz (155.4kg) Physical Exam Vitals and nursing note reviewed. Constitutional: General: He is awake. He is not in acute distress. Appearance: Normal appearance. He is well-developed and well-groomed. He is not ill-appearing, toxic-appearing or diaphoretic. HENT: Head: Normocephalic. Right Ear: External ear normal. Left Ear: External ear normal. Nose: Nose normal. Eyes: General: Vision grossly intact. Conjunctiva/sclera: Conjunctivae normal. Pupils: Pupils are equal, round, and reactive to light. Neck: Vascular: No JVD. Trachea: Trachea normal. Cardiovascular: Rate and Rhythm: Normal rate and regular rhythm. Pulses: Normal pulses. Heart sounds: Normal heart sounds. No murmur heard. Pulmonary: Effort: Pulmonary effort is normal. No accessory muscle usage, prolonged expiration or respiratory distress. Breath sounds: Normal breath sounds. Musculoskeletal: Cervical back: Neck supple. Skin: General: Skin is warm and dry. Capillary Refill: Capillary refill takes less than 2 seconds. Neuro (more content not included)... [facility] 06-14-2024 History of Presen t illness Narrative SUBJECTIVE Niko Brooke is a 34 year old male here today for a check up on his medical problems. Chief Complaint Patient presents with: discuss getting back on BiPAP: Has not used it in 6 months or longer, no longer has the machine at home. HPI Niko Brooke is a 34 year old male. He presents today to discuss orders for a bipap. Accompanied by his mom. Notes prior orders for bipap but had compliance issues so machine was taken back by [employer]. Ready to use this more. Last sleep study was a titration study within the last year, recommended auto bipap with ipap max 10 and epap 9, ps of 4. His medications were reviewed today and his list is now up to date. Medications Current Outpatient Medications Medication Sig triamcinolone (KENALOG) 0.025 % cream Apply 1 application to affected area two times a day. Up to 14 days per rash dulaglutide (TRULICITY) 3 mg/0.5 mL pen injector Inject 3 mg subcutaneously one time a week. DULoxetine (CYMBALTA) 60 mg capsule Take 1 capsule by mouth two times a day. (Dr. Dasilva) omeprazole (PRILOSEC) 40 mg capsule Take 1 capsule by mouth once daily. lisinopril (ZESTRIL) 5 mg tablet Take 1 tablet by mouth once daily. Take with 10 mg lisinopril once daily lisinopril (ZESTRIL) 10 mg tablet Take 1 tablet by mouth once daily. Take with 5 mg lisinopril once daily levalbuterol tartrate HFA 45 mcg/actuation inhaler Inhale 1-2 Puffs as instructed every 6 hours as needed for wheezing/shortness of breath. gabapentin (NEURONTIN) 300 mg capsule Take 1 capsule by mouth two times a day. risperiDONE (RISPERDAL) 3 mg tablet Take 1 tablet by mouth twice daily. cloNIDine HCl (CATAPRES) 0.1 mg tablet Takes 1 to 2 pills daily as needed. (per Mother) For anger divalproex ER 500 mg 24 hr tablet Take 1,000 mg by mouth twice daily. CPAP/BIPAP/OTHER Type .CPAPSettings into a note to see current settings/supplies/DME information. dulaglutide (TRULICITY) 1.5 mg/0.5 mL pen injector Inject 1.5 mg subcutaneously one time a week. Fill this RX if the 3mg dose is not available. (Patient not taking: Reported on 06/14/2024) No current facility-administered medications for this visit. ALLERGIES Allergen Reactions Seasonal Allergies Unknown ACTIVE PROBLEM LIST Diabetes Mellitus Type 2, Controlled, Without Complications ([facility]) - 09/28/2023 Gerd (Gastroesophageal Reflux Disease) - 02/05/2022 Prediabetes - 02/05/2022 Family History of Colon Cancer - 02/05/2022 Colon Cancer Screening - 02/05/2022 Primary Hypertension - 05/15/2020 S/P Lumbar Laminectomy - 09/24/2019 Comment: Dr. 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 Reactive Depression - 04/18/2006 Attention Deficit Disorder - 04/18/2006 Social History Tobacco Use Smoking status: Never Smokeless tobacco: Never Vaping Use Vaping status: Never Used Substance Use Topics Alcohol use: Never Drug use: Never Review of Systems Respiratory: Negative. Cardiovascular: Negative. OBJECTIVE BP 124/74 Pulse 88 Resp 18 Wt 342 lb 9.5 oz (155.4kg) Physical Exam Vitals and nursing note reviewed. Constitutional: General: He is awake. He is not in acute distress. Appearance: Normal appearance. He is well-developed and well-groomed. He is not ill-appearing, toxic-appearing or diaphoretic. HENT: Head: Normocephalic. Right Ear: External ear normal. Left Ear: External ear normal. Nose: Nose normal. Eyes: General: Vision grossly intact. Conjunctiva/sclera: Conjunctivae normal. Pupils: Pupils are equal, round, and reactive to light. Neck: Vascular: No JVD. Trachea: Trachea normal. Cardiovascular: Rate and Rhythm: Normal rate and regular rhythm. Pulses: Normal pulses. Heart sounds: Normal heart sounds. No murmur heard. Pulmonary: Effort: Pulmonary effort is normal. No accessory muscle usage, prolonged expiration or respiratory distress. Breath sounds: Normal breath sounds. Musculoskeletal: Cervical back: Neck supple. Skin: General: Skin is warm and dry. Capillary Refill: Capillary refill takes less than 2 seconds. Neurological: General: No focal deficit present. Mental Status: He is alert and oriented to person, place, and time. Mental status is at baseline. Psychiatric: Attention and Perception: Attention and perception normal. Mood and Affect: Mood and affect normal. Speech: Speech normal. Behavior: Behavior normal. Behavior is cooperative. Thought Content: Thought content normal. Cognition and Memory: Cognition and memory normal. Judgment: Judgment normal. ASSESSMENT/PLAN: 1. DWIGHT (obstructive sleep apnea) - ICD9: 327.23, ICD10: G47.33 (primary diagnosis) Send orders, office note and sleep study to [facility] [place]. - PAP THERAPY ORDER - CPAP/BIPAP/OTHER 2. Class 3 severe obesity due to excess calories with body mass index (BMI) of 40.0 to 44.9 in adult, unspecified whether serious comorbidity present (HCC) - ICD9: 278.01, V85.41, ICD10: E66.813, E66.01, Z68.41 - PAP THERAPY ORDER - CPAP/BIPAP/OTHER Portions of this note have been entered by ancillary staff. I have reviewed and when necessary edited, so that they are an adequate record of my encounter with this patient Please note that parts of this document were created using voice recognition software and therefore may contain grammatical errors. Patient verbalizes understanding of instructions from today's visit and in agreement with treatment plan. Questions answered. Agrees to call the office if questions, concerns of issues with acute symptoms not improving or if they worsen. See diagnoses and orders for additional plan(s). Allergies and medications were reviewed, list was updated, and refills given if needed. Past medical, surgical, social, and family history reviewed and updated as appropriate. Encouraged proper diet & exercise as well as compliance with taking medications. Age-appropriate health preventative measures were discussed. Return if symptoms worsen or fail to improve, for Keep next scheduled appointment.. Liudmila Breaux APRN-RADHA documented in this encounter [facility] 05-09-2024 History of Presen t illness Narrative Images from the original note were not included. This note was created using [employer]. Subjective Niko Brooke is a 33 year old male. HPI 33-year-old male presents for sore throat, congestion, cough for the past 3 days. Patient started getting sore throat about 3 days ago. He has had a little bit of cough and nasal congestion. He felt warm yesterday and took a medication and then was sweating. He felt warm again this morning. Mom states she gave him Tylenol cold medication. Patient states it helped a little bit, but now symptoms are returning. No chest pain or shortness of breath. No vomiting or diarrhea. He is still able to drink fluids, but has not wanted to eat much today. No sick contacts. No other complaint. PAST MEDICAL HISTORY Diagnosis Date Asthma 03/05/2010 ATTN DEFICIT NONHYPERACT 04/18/2006 Congenital pes planus 09/27/2010 DEPRESSIVE DISORDER NEC 04/18/2006 Encopresis 12/15/2014 Enuresis 12/15/2014 Excessive anger 07/14/2012 followed by psychiatry Family history of colon cancer Maternal Grandmother was 33years old when diagnosed and from colon cancer (will need colonoscopy at 28years old for screeening) Mental retardation, moderate (I.Q. 35-49) 10/12/2007 Obesity 12/15/2014 S/P lumbar laminectomy 09/2019 Dr. Weinstein Spinal stenosis of lumbar region with neurogenic claudication 05/10/2019 PAST SURGICAL HISTORY Procedure Laterality Date CIRCUMCISION LAMINECTOMY,LUMBAR 09/2019 L3,4,5 Dr. Weinstein TONSILLECTOMY & ADENOIDECTOMY <AGE 12 ALLERGIES Seasonal Allergies MEDICATIONS triamcinolone (KENALOG) 0.025 % cream Apply 1 application to affected area two times a day. Up to 14 days per rash dulaglutide (TRULICITY) 3 mg/0.5 mL pen injector Inject 3 mg subcutaneously one time a week. DULoxetine (CYMBALTA) 60 mg capsule Take 1 capsule by mouth two times a day. (Dr. Dasilva) dulaglutide (TRULICITY) 1.5 mg/0.5 mL pen injector Inject 1.5 mg subcutaneously one time a week. Fill this RX if the 3mg dose is not available. omeprazole (PRILOSEC) 40 mg capsule Take 1 capsule by mouth once daily. lisinopril (ZESTRIL) 5 mg tablet Take 1 tablet by mouth once daily. Take with 10 mg lisinopril once daily lisinopril (ZESTRIL) 10 mg tablet Take 1 tablet by mouth once daily. Take with 5 mg lisinopril once daily levalbuterol tartrate HFA 45 mcg/actuation inhaler Inhale 1-2 Puffs as instructed every 6 hours as needed for wheezing/shortness of breath. gabapentin (NEURONTIN) 300 mg capsule Take 1 capsule by mouth two times a day. risperiDONE (RISPERDAL) 3 mg tablet Take 1 tablet by mouth twice daily. cloNIDine HCl (CATAPRES) 0.1 mg tablet Takes 1 to 2 pills daily as needed. (per Mother) For anger divalproex ER 500 mg 24 hr tablet Take 1,000 mg by mouth twice daily. FAMILY HISTORY Problem Relation Age of Onset Colon Cancer Father 50's Diabetes Father Hypertension Father Cancer Father Colon Colon Polyps Mother large polyp other (Hypothyroidism [Other]) Mother Colon Polyps Brother Colon Cancer Maternal Grandmother 34 Cancer Maternal Grandmother from breast and uterine cancer Macular Degen Maternal Grandfather Diabetes Maternal Grandfather Colon Cancer Paternal Grandfather late 60's Cancer Paternal Grandfather from Colon Cancer Social History Tobacco Use Smoking status: Never Smokeless tobacco: Never Vaping Use Vaping status: Never Used Substance Use Topics Alcohol use: Never Drug use: Never Review of Systems Constitutional: Positive for fever. Negative for chills. HENT: Positive for congestion and sore throat. Respiratory: Positive for cough. Negative for shortness of breath. Gastrointestinal: Negative for diarrhea and vomiting. Objective BP 120/66 Pulse 98 Temp 36.8 C (98.2 F) Resp 18 Wt (!) 156.3 kg (344 lb 9.3 oz) SpO2 96% BMI 44.24 kg/m Physical Exam Vitals and nursing note reviewed. Constitutional: General: He is not in acute distress. Appearance: Normal appearance. He is not toxic-appearing. HENT: Right Ear: Tympanic membrane and ear canal normal. Left Ear: Tympanic membrane and ear canal normal. Nose: Nose normal. Mouth/Throat: Mouth: Mucous membranes are moist. Tongue: Lesions present. Pharynx: Posterior oropharyngeal erythema present. Tonsils: 2+ on the right. 2+ on the left. Comments: Small white ulcerations at the tip of the tongue with erythematous base. No tenderness. No lesions or exudates anywhere else in the mouth. 2+ tonsillar swelling with erythema. Uvula midline. Handling secretions. Eyes: Conjunctiva/sclera: Conjunctivae normal. Cardiovascular: Rate and Rhythm: Normal rate and regular rhythm. Pulmonary: Effort: Pulmonary effort is normal. Breath sounds: Normal breath sounds. Lymphadenopathy: Cervical: Cervical adenopathy present. Skin: General: Skin is warm and dry. Neurological: Mental Status: He is alert. Assessment and Plan ASSESSMENT/PLAN: 1. Sore throat - ICD9: 462, ICD10: J02.9 - suspect viral - Group A strep molecular testing negative - Discussed supportive care treatment with fluids, rest and analgesia. - The patient may also use warm salt water gargles, throat lozenges and/or OTC throat spray as needed. - STREP A MOLECULAR (POC) -declines viral swab Diagnosis and treatment plan were discussed and questions were answered to the patient's satisfaction. Pt acknowledged understanding of concepts and follow up plan. Specific signs and symptoms that would indicate the need for higher level of care were discussed in detail warranting prompt ER evaluation. BRUNO Vargas documented in this encounter [facility] 04-05-2024 Instructions Hector Currie MD - 04/05/2024 3:27 PM EDT -Continue to monitor your blood sugar levels and aim to maintain them within a healthy range. - Focus on a balanced diet, reducing intake of high-carbohydrate foods like bread, pasta, rice, and potatoes, and increasing intake of omega-3 rich foods like fish, flaxseed, and walnuts. - Continue to incorporate physical activity into your routine, aiming for at least 30 minutes of exercise on most days of the week. - We will attempt to increase your Trulicity dose to 3 mg. If the 3 mg dose is not available, continue with the 1.5 mg dose until the higher dose becomes available. - Triamcinolone topical cream prescription has been refilled with three refills added. - Noted Cymbalta dose has been adjusted to 60 mg twice daily by Dr. Dasilva. - Valproic acid prescription remains at 500 mg. - Consider scheduling an appointment with your eye doctor for a routine check-up. - Schedule a follow-up appointment with Dr. Dasilva in May. - Schedule a follow-up appointment with me in four months. - Lab tests (cholesterol, metabolic panel, A1C, CBC) have been ordered for three months from now, to be completed before your next appointment. Please ensure you are fasting for the cholesterol test. documented in this encounter [facility] 04-05-2024 History of Presen t illness Narrative This note was created using [employer]. Subjective Niko Brooke is a 33 year old male. Patient presents with: F/U 4 month SUBJECTIVE: Niko Brooke is a 33 year old year old gentleman here today for 4 month follow up appointment for review of medical conditions. Patient is a 33-year-old male with a history of diabetes, presenting today for a follow-up visit. Patient is accompanied by his mother, who provides additional history. Patient is currently on Trulicity 1.5 mg and is interested in increasing the dose to 3 mg, believing it would be more effective for weight management. He has lost 2.5 pounds since his last visit and attributes this to the Trulicity, which he reports helps control his appetite. Patient is also on Cymbalta 60 mg BID, valproic acid 500 mg, gabapentin, lisinopril, omeprazole, Risperdal 3 mg BID, and clonidine PRN. He uses triamcinolone topical cream for rashes, with one tube lasting 2-3 months. He denies needing magnesium supplementation currently. Patient has a history of non-compliance with CPAP therapy and has had his machine taken away multiple times. He recently underwent a sleep study that indicated a need for BiPAP, but he has not been using it consistently. Patient's mother reports that he often falls asleep while on the phone and does not put on the BiPAP mask. Patient denies using the phone all night but confirms he does not put on the mask before falling asleep. He is not currently using CPAP or AutoPAP. Patient's mother reports that he has been more active recently, attending a group twice a week where they engage in various activities. However, he is not doing much exercise outside of that. Patient's mother also reports that he has been eating healthier, but still struggles with portion control and eating too much bread. Patient reports that he likes green beans and corn, but is not good about eating other vegetables. He likes hamburger and roast for protein. Patient's mother has been trying to cut down on the amount of food she makes to help with portion control. Patient's mother reports that he has not seen his eye doctor recently and needs to make an appointment. She believes the eye doctor was out this summer due to having a baby. 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 35-49) 12/15/2014: Obesity 09/2019: S/P lumbar laminectomy Comment: Dr. Weinstein 05/10/2019: Spinal stenosis of lumbar region with neurogenic claudication Current Outpatient Medications Medication Sig dulaglutide (TRULICITY) 1.5 mg/0.5 mL pen injector Inject 3 mg subcutaneously one time a week. triamcinolone (KENALOG) 0.025 % cream Apply 1 application to affected area two times a day. Up to 14 days per rash omeprazole (PRILOSEC) 40 mg capsule Take 1 capsule by mouth once daily. lisinopril (ZESTRIL) 5 mg tablet Take 1 tablet by mouth once daily. Take with 10 mg lisinopril once daily lisinopril (ZESTRIL) 10 mg tablet Take 1 tablet by mouth once daily. Take with 5 mg lisinopril once daily levalbuterol tartrate HFA 45 mcg/actuation inhaler Inhale 1-2 Puffs as instructed every 6 hours as needed for wheezing/shortness of breath. gabapentin (NEURONTIN) 300 mg capsule Take 1 capsule by mouth two times a day. DULoxetine (CYMBALTA) 60 mg capsule Take 1 capsule by mouth every morning. risperiDONE (RISPERDAL) 3 mg tablet Take 1 tablet by mouth twice daily. cloNIDine HCl (CATAPRES) 0.1 mg tablet Takes 1 to 2 pills daily as needed. (per Mother) For anger divalproex ER 500 mg 24 hr tablet Take 1,000 mg by mouth twice daily. CPAP/BIPAP/OTHER Auto bilevel PAP with humidification set at IPAP max 20 cmH2O, EPAP min 9cm H2O and PS of 4 CM H2O. Mask per patient preference. Diagnosis: DWIGHT G47.33 CPAP Initiate Auto PAP @ 5-20 cm of water with humidification. Mask (per patient preference) optional chin strap (if indicated) , filters, tubing, humidifier and lifetime supplies. MAGNESIUM CARBONATE ORAL Take 1 tablet by mouth. (Patient not taking: Reported on 12/01/2023) DULoxetine (CYMBALTA) 30 mg capsule Take 1 capsule by mouth daily at bedtime. No current facility-administered medications for this visit. Review of Systems Objective BP 112/78 Pulse 90 Temp 36.3 C (97.4 F) Resp 18 Wt (!) 161.5 kg (356 lb 0.7 oz) SpO2 96% BMI 45.71 kg/m Last 5 Encounter Wt Readings: Date: Wt: 04/05/2024 161.5 kg (356 lb 0.7 oz) 12/01/2023 162.8 kg (359 lb) 11/06/2023 164 kg (361 lb 8.9 oz) 09/28/2023 159.7 kg (352 lb) 07/27/2023 159.7 kg (352 lb) No waist measurement recorded Estimated body mass index is 45.71 kg/m as calculated from the following: Height as of 02/05/22: 188 cm (6' 2"). Weight as of this encounter: 161.5 kg (356 lb 0.7 oz). Last 5 Encounter BP Readings: Date: BP: 04/05/2024 112/78 12/01/2023 118/64 11/06/2023 110/69 07/27/2023 111/73 07/13/2023 118/72 Physical Exam Vitals reviewed. Constitutional: Appearance: Normal appearance. He is obese. Eyes: Conjunctiva/sclera: Conjunctivae normal. Cardiovascular: Rate and Rhythm: Normal rate and regular rhythm. Heart sounds: Normal heart sounds. Pulmonary: Effort: Pulmonary effort is normal. Breath sounds: Normal breath sounds. Musculoskeletal: Right lower leg: No edema. Left lower leg: No edema. Skin: General: Skin is warm and dry. Neurological: General: No focal deficit present. Mental Status: He is alert and oriented to person, place, and time. Psychiatric: Mood and Affect: Mood normal. Behavior: Behavior normal. Thought Content: Thought content normal. Judgment: Judgment normal. Latest Ref Rng 03/02/2023 07/27/2023 03/26/2024 WBC 3.70 - 11.00 k/uL 8.40 9.77 RBC 4.20 - 6.00 m/uL 4.69 4.82 Hemoglobin 13.0 - 17.0 g/dL 13.5 14.1 Hematocrit 39.0 - 51.0 % 41.3 42.8 MCV 80.0 - 100.0 fL 88.1 88.8 MCH 26.0 - 34.0 pg 28.8 29.3 MCHC 30.5 - 36.0 g/dL 32.7 32.9 RDW-CV 11.5 - 15.0 % 12.2 11.9 Platelet Count 150 - 400 k/uL 202 182 MPV 9.0 - 12.7 fL 11.3 11.7 Neut% % 60.9 Abs Neut (ANC) 1.45 - 7.50 k/uL 5.12 Lymph% % 30.4 Abs Lymph 1.00 - 4.00 k/uL 2.55 Hudspeth% % 5.7 Abs Hudspeth <0.87 k/uL 0.48 Eosin% % 1.5 Abs Eosin <0.46 k/uL 0.13 Baso% % 0.5 Abs Baso <0.11 k/uL 0.04 Immature Gran % % 1.0 IMMATURE GRANS (ABS) <0.10 k/uL 0.08 NRBC /100 WBC 0.0 Absolute nRBC <0.01 k/uL <0.01 <0.01 DTYPE Auto Protein, Total 6.3 - 8.0 g/dL 6.5 6.5 6.9 Albumin 3.9 - 4.9 g/dL 4.1 4.1 4.4 Calcium 8.5 - 10.2 mg/dL 9.2 9.2 9.7 Bilirubin, Total 0.2 - 1.3 mg/dL 0.2 0.2 0.3 Alkaline Phosphatase 38 - 113 U/L 57 56 54 AST 14 - 40 U/L 22 15 20 ALT 10 - 54 U/L 21 15 17 Glucose 74 - 99 mg/dL 107 (H) 169 (H) 110 (H) BUN 9 - 24 mg/dL 12 12 15 Creatinine 0.73 - 1.22 mg/dL 0.58 (L) 0.63 (L) 0.65 (L) Sodium 136 - 144 mmol/L 140 139 137 Potassium 3.7 - 5.1 mmol/L 4.6 4.5 5.0 Chloride 98 - 107 mmol/L 101 101 98 CO2 22 - 30 mmol/L 27 27 27 Anion Gap 8 - 15 mmol/L 12 11 12 eGFR >=60 mL/min/1.73m 135 130 129 Cholesterol, Total <200 mg/dL 183 Triglyceride <150 mg/dL 263 (H) HDL Cholesterol >39 mg/dL 27 (L) Non HDL Cholesterol <130 mg/dL 156 (H) Fasting Time hrs 10 VLDL Cholesterol <30 mg/dL 53 (H) TC:HDL Ratio <5.10 6.78 (H) LDL Cholesterol <100 mg/dL 103 (H) LDL:HDL Ratio <2.54 3.81 (H) Total Cholesterol, Nonfasting <200 mg/dL 170 Triglycerides, Nonfasting <150 mg/dL 302 (H) HDL Cholesterol, Nonfasting >39 mg/dL 26 (L) LDL Cholesterol, Nonfasting <100 mg/dL 84 Non HDL Cholesterol, Nonfasting <130 mg/dL 144 (H) VLDL Cholesterol, Nonfasting <30 mg/dL 60 (H) Total Chol/HDL Ratio, Nonfasting <5.10 mg/dL 6.54 (H) LDL/HDL Ratio, Nonfasting <2.54 mg/dL 3.23 (H) Hemoglobin A1C 4.3 - 5.6 % 5.3 5.1 5.5 Estimated Average Glucose mg/dL 105 100 111 Prolactin 4.0 - 15.2 ng/mL 29.0 (H) 27.5 (H) Valproic Acid 50.0 - 100.0 ug/mL 65.1 72.8 Ammonia 16 - 60 umol/L 20 20 Legend: (H) High (L) Low Hemoglobin A1C (%) Date Value 03/26/2024 5.5 07/27/2023 5.1 03/02/2023 5.3 11/08/2022 6.0 07/22/2022 6.3 03/19/2021 6.3 03/19/2021 6.3 07/20/2019 5.8 11/20/2018 5.5 11/20/2018 5.5 Assessment and Plan Encounter Diagnosis ICD-10-CM 1. Controlled type 2 diabetes mellitus without complication, without long-term current use of insulin (HCC) E11.9 dulaglutide (TRULICITY) 3 mg/0.5 mL pen injector dulaglutide (TRULICITY) 1.5 mg/0.5 mL pen injector HEMOGLOBIN A1C COMPREHENSIVE METABOLIC PANEL LIPID PANEL BASIC COMPLETE BLOOD COUNT 2. Class 3 severe obesity without serious comorbidity with body mass index (BMI) of 45.0 to 49.9 in adult, unspecified obesity type (HCC) E66.01 dulaglutide (TRULICITY) 3 mg/0.5 mL pen injector Z68.42 dulaglutide (TRULICITY) 1.5 mg/0.5 mL pen injector DISCONTINUED: dulaglutide (TRULICITY) 1.5 mg/0.5 mL pen injector 3. Primary hypertension I10 dulaglutide (TRULICITY) 3 mg/0.5 mL pen injector dulaglutide (TRULICITY) 1.5 mg/0.5 mL pen injector COMPREHENSIVE METABOLIC PANEL LIPID PANEL BASIC COMPLETE BLOOD COUNT DISCONTINUED: dulaglutide (TRULICITY) 1.5 mg/0.5 mL pen injector 4. Rash R21 triamcinolone (KENALOG) 0.025 % cream Topical steroid still helps. Continue present management Encounter Diagnosis ICD-10-CM 1. Controlled type 2 diabetes mellitus without complication, without long-term current use of insulin ([facility]) E11.9 dulaglutide (TRULICITY) 3 mg/0.5 mL pen injector dulaglutide (TRULICITY) 1.5 mg/0.5 mL pen injector HEMOGLOBIN A1C COMPREHENSIVE METABOLIC PANEL LIPID PANEL BASIC COMPLETE BLOOD COUNT ALBUMIN/CREATININE RATIO, URINE 2. Class 3 severe obesity without serious comorbidity with body mass index (BMI) of 45.0 to 49.9 in adult, unspecified obesity type ([facility]) E66.01 dulaglutide (TRULICITY) 3 mg/0.5 mL pen injector Z68.42 dulaglutide (TRULICITY) 1.5 mg/0.5 mL pen injector DISCONTINUED: dulaglutide (TRULICITY) 1.5 mg/0.5 mL pen injector 3. Primary hypertension I10 dulaglutide (TRULICITY) 3 mg/0.5 mL pen injector dulaglutide (TRULICITY) 1.5 mg/0.5 mL pen injector COMPREHENSIVE METABOLIC PANEL LIPID PANEL BASIC COMPLETE BLOOD COUNT DISCONTINUED: dulaglutide (TRULICITY) 1.5 mg/0.5 mL pen injector 4. Rash R21 triamcinolone (KENALOG) 0.025 % cream Topical steroid still helps. Continue present management Above issues addressed with patient. Patient involved in shared decision making for management of medical issues. History and medications reviewed. Epic updated as needed Refills and/or prescriptions taken care of and meds adjusted as indicated after reviewed history, exam and labs. Health Maintenance reviewed. Updated record and/or ordered tests as recorded. Encouraged on efforts at healthy diet and regular exercise and adequate sleep. Needs to keep working on diet and exercise with lifestyle changes for effective weight loss as well as control of DM, and control of BP and lipids. Controlled type 2 diabetes mellitus without complication, without long-term current use of insulin (HCC): - Patient's recent labs show fasting blood sugar improved to 110 and A1c at 5.5, indicating good control of diabetes. - Continue monitoring blood glucose levels and adherence to the current treatment plan. - Discussed the importance of maintaining a healthy diet and regular physical activity to manage diabetes effectively. - Trulicity 1.5 mg dose will be continued, with an attempt to increase to 3 mg depending on availability. - Patient educated on the importance of not taking Trulicity for a week before any surgery requiring general anesthesia due to the risk of aspiration. - Follow-up in 4 months with additional labs (cholesterol, metabolic panel, A1C, CBC) to monitor progress. Class 3 severe obesity without serious comorbidity with body mass index (BMI) of 45.0 to 49.9 in adult, unspecified obesity type (HCC): - Patient's BMI is 45, indicating class 3 severe obesity. - Discussed the importance of a balanced diet, portion control, and incorporating more vegetables into meals. - Encouraged patient to increase physical activity gradually, starting with short walks and considering other forms of exercise that do not exacerbate back pain. - Trulicity treatment is helping with appetite control and weight management; will attempt to increase the dose to 3 mg depending on availability. - Follow-up in 4 months to assess progress and adjust the treatment plan as needed. Primary hypertension: - Patient's blood pressure is well-controlled with current medication regimen. - As patient's weight decreases, will monitor for potential low blood pressure and adjust medications as needed. - No immediate changes to the treatment plan are necessary at this time. Rash: - Prescribed Triamcinolone topical cream for rash management. - Patient to apply as directed and monitor for any changes in the rash's appearance or symptoms. - Provided three refills to ensure continued treatment availability. DWIGHT--will let me know when wants to make changes so can do BiPAP . Hector Currie MD documented in this encounter [facility] 12-01-2023 History of Presen t illness Narrative This note was created using [employer]. Subjective Niko Brooke is a 33 year old male. Patient presents with: Follow Up: 4 month exam SUBJECTIVE: Niko Brooke is a 33 year old year old gentleman here today for 4 month follow up appointment for review of medical conditions. Nocturia noted. Urgency and frequency. This comes and goes. No dysuria. No hematuria This can last daily for a while for a few months then resolves. Working on getting enough water in. Has something to make flavored carbonated beverages. Had RSV recently. Took weeks to get over cough. Was not able to use BiPAP due to illness and nasal congestion. Will resume when able to use BiPAP again. Got Trulicity approved for the year. Getting though bariatric department. PAST MEDICAL HISTORY Diagnosis Date Asthma 03/05/2010 ATTN DEFICIT NONHYPERACT 04/18/2006 Congenital pes planus 09/27/2010 DEPRESSIVE DISORDER NEC 04/18/2006 Encopresis 12/15/2014 Enuresis 12/15/2014 Excessive anger 07/14/2012 followed by psychiatry Family history of colon cancer Maternal Grandmother was 33years old when diagnosed and from colon cancer (will need colonoscopy at 28years old for screeening) Mental retardation, moderate (I.Q. 35-49) 10/12/2007 Obesity 12/15/2014 S/P lumbar laminectomy 09/2019 Dr. Weinstein Spinal stenosis of lumbar region with neurogenic claudication 05/10/2019 Current Outpatient Medications Medication Sig dulaglutide (TRULICITY) 4.5 mg/0.5 mL pen injector Inject 4.5 mg subcutaneously one time a week. Start 1 week after last 3 mg dose. omeprazole (PRILOSEC) 40 mg capsule Take 1 capsule by mouth once daily. lisinopril (ZESTRIL) 5 mg tablet Take 1 tablet by mouth once daily. Take with 10 mg lisinopril once daily lisinopril (ZESTRIL) 10 mg tablet Take 1 tablet by mouth once daily. Take with 5 mg lisinopril once daily levalbuterol tartrate HFA 45 mcg/actuation inhaler Inhale 1-2 Puffs as instructed every 6 hours as needed for wheezing/shortness of breath. gabapentin (NEURONTIN) 300 mg capsule Take 1 capsule by mouth two times a day. CPAP Initiate Auto PAP @ 5-20 cm of water with humidification. Mask (per patient preference) optional chin strap (if indicated) , filters, tubing, humidifier and lifetime supplies. DULoxetine (CYMBALTA) 60 mg capsule Take 1 capsule by mouth every morning. DULoxetine (CYMBALTA) 30 mg capsule Take 1 capsule by mouth daily at bedtime. risperiDONE (RISPERDAL) 3 mg tablet Take 1 tablet by mouth twice daily. triamcinolone (KENALOG) 0.025 % cream Apply 1 application to affected area twice daily. (Patient taking differently: Apply 1 application to affected area two times a day. Uses as needed) cloNIDine HCl (CATAPRES) 0.1 mg tablet Takes 1 to 2 pills daily as needed. (per Mother) For anger divalproex ER 500 mg 24 hr tablet Take 1,000 mg by mouth twice daily. dulaglutide (TRULICITY) 3 mg/0.5 mL pen injector Inject 3 mg subcutaneously one time a week. for 4 weeks then increase to 4.5 mg dose. CPAP/BIPAP/OTHER Auto bilevel PAP with humidification set at IPAP max 20 cmH2O, EPAP min 9cm H2O and PS of 4 CM H2O. Mask per patient preference. Diagnosis: DWIGHT G47.33 MAGNESIUM CARBONATE ORAL Take 1 tablet by mouth. (Patient not taking: Reported on 12/01/2023) No current facility-administered medications for this visit. Review of Systems Objective BP 118/64 Pulse 104 Resp 16 Wt (!) 162.8 kg (359 lb) SpO2 96% BMI 46.09 kg/m Last 5 Encounter Wt Readings: Date: Wt: 12/01/2023 162.8 kg (359 lb) 11/06/2023 164 kg (361 lb 8.9 oz) 09/28/2023 159.7 kg (352 lb) 07/27/2023 159.7 kg (352 lb) 05/23/2023 162.7 kg (358 lb 9.6 oz) No waist measurement recorded Estimated body mass index is 46.09 kg/m as calculated from the following: Height as of 02/05/22: 188 cm (6' 2"). Weight as of this encounter: 162.8 kg (359 lb). Last 5 Encounter BP Readings: Date: BP: 12/01/2023 118/64 11/06/2023 110/69 07/27/2023 111/73 07/13/2023 118/72 05/23/2023 122/80 Physical Exam Latest Ref Rng 11/17/2022 03/02/2023 07/27/2023 WBC 3.70 - 11.00 k/uL 8.40 RBC 4.20 - 6.00 m/uL 4.69 Hemoglobin 13.0 - 17.0 g/dL 13.5 Hematocrit 39.0 - 51.0 % 41.3 MCV 80.0 - 100.0 fL 88.1 MCH 26.0 - 34.0 pg 28.8 MCHC 30.5 - 36.0 g/dL 32.7 RDW-CV 11.5 - 15.0 % 12.2 Platelet Count 150 - 400 k/uL 202 MPV 9.0 - 12.7 fL 11.3 Neut% % 60.9 Abs Neut (ANC) 1.45 - 7.50 k/uL 5.12 Lymph% % 30.4 Abs Lymph 1.00 - 4.00 k/uL 2.55 Hudspeth% % 5.7 Abs Hudspeth <0.87 k/uL 0.48 Eosin% % 1.5 Abs Eosin <0.46 k/uL 0.13 Baso% % 0.5 Abs Baso <0.11 k/uL 0.04 Immature Gran % % 1.0 IMMATURE GRANS (ABS) <0.10 k/uL 0.08 NRBC /100 WBC 0.0 Absolute nRBC <0.01 k/uL <0.01 DTYPE Auto Protein, Total 6.3 - 8.0 g/dL 6.5 6.5 Albumin 3.9 - 4.9 g/dL 4.1 4.1 Calcium 8.5 - 10.2 mg/dL 9.2 9.2 Bilirubin, Total 0.2 - 1.3 mg/dL 0.2 0.2 Alkaline Phosphatase 38 - 113 U/L 57 56 AST 14 - 40 U/L 22 15 ALT 10 - 54 U/L 21 15 Glucose 74 - 99 mg/dL 107 (H) 169 (H) BUN 9 - 24 mg/dL 12 12 Creatinine 0.73 - 1.22 mg/dL 0.58 (L) 0.63 (L) Sodium 136 - 144 mmol/L 140 139 Potassium 3.7 - 5.1 mmol/L 4.6 4.5 Chloride 97 - 105 mmol/L 101 101 CO2 22 - 30 mmol/L 27 27 Anion Gap 9 - 18 mmol/L 12 11 eGFR >=60 mL/min/1.73m 135 130 Total Cholesterol, Nonfasting <200 mg/dL 170 Triglycerides, Nonfasting <150 mg/dL 302 (H) HDL Cholesterol, Nonfasting >39 mg/dL 26 (L) LDL Cholesterol, Nonfasting <100 mg/dL 84 Non HDL Cholesterol, Nonfasting <130 mg/dL 144 (H) VLDL Cholesterol, Nonfasting <30 mg/dL 60 (H) Total Chol/HDL Ratio, Nonfasting <5.10 mg/dL 6.54 (H) LDL/HDL Ratio, Nonfasting <2.54 mg/dL 3.23 (H) Hemoglobin A1C 4.3 - 5.6 % 5.1 Estimated Average Glucose mg/dL 100 COVID 19 Result See comment Detected ! Prolactin 4.0 - 15.2 ng/mL 29.0 (H) Valproic Acid 50.0 - 100.0 ug/mL 65.1 Ammonia 16 - 60 umol/L 20 Legend: ! Abnormal (H) High (L) Low Assessment and Plan Encounter Diagnosis ICD-10-CM 1. Controlled type 2 diabetes mellitus without complication, without long-term current use of insulin (HCC) E11.9 ALBUMIN/CREAT RATIO RND UR 2. Rash R21 triamcinolone (KENALOG) 0.025 % cream Above issues addressed with patient. Patient involved in shared decision making for management of medical issues. History and medications reviewed. Epic updated as needed Refills and/or prescriptions taken care of and meds adjusted as indicated after reviewed history, exam and labs. Health Maintenance reviewed. Updated record and/or ordered tests as recorded. Encouraged on efforts at healthy diet and regular exercise and adequate sleep. Hector Currie MD documented in this encounter [facility] 11-06-2023 History of Presen t illness Narrative This note was created using Note[employer]. Subjective Niko Brooke is a 33 year old male. 33 year old male with PMH asthma, DM, DWIGHT, intellectual disability, ADD, reactive depression and GERD presents for illness. Acute onset 3 days ago +cough Non productive +sneezing +head pressure + low grade fever +body aches +fatigue Denies N/V/D Denies ear complaints. Tried over the counter sinus medicine + ill contacts Denies tobacco usage Accompanied by mom, who endorses she is worried about flu and pneumonia. The history is provided by the patient. No cashier and waiter/waitress was used. Flu Like Symptoms This is a new problem. The current episode started in the past 7 days. The problem occurs constantly. The problem has been unchanged. Associated symptoms include chills, congestion, coughing, fatigue, a fever, headaches, myalgias and nausea. Pertinent negatives include no abdominal pain, anorexia, arthralgias, change in bowel habit, chest pain, diaphoresis, joint swelling, neck pain, numbness, rash, sore throat, swollen glands, urinary symptoms, vertigo, visual change, vomiting or weakness. Nothing aggravates the symptoms. Treatments tried: see HPI. The treatment provided mild relief. PAST MEDICAL HISTORY Diagnosis Date Asthma 03/05/2010 ATTN DEFICIT NONHYPERACT 04/18/2006 Congenital pes planus 09/27/2010 DEPRESSIVE DISORDER NEC 04/18/2006 Encopresis 12/15/2014 Enuresis 12/15/2014 Excessive anger 07/14/2012 followed by psychiatry Family history of colon cancer Maternal Grandmother was 33years old when diagnosed and from colon cancer (will need colonoscopy at 28years old for screeening) Mental retardation, moderate (I.Q. 35-49) 10/12/2007 Obesity 12/15/2014 S/P lumbar laminectomy 09/2019 Dr. Weinstein Spinal stenosis of lumbar region with neurogenic claudication 05/10/2019 PAST SURGICAL HISTORY Procedure Laterality Date CIRCUMCISION LAMINECTOMY,LUMBAR 09/2019 L3,4,5 Dr. Weinstein TONSILLECTOMY & ADENOIDECTOMY <AGE 14 ALLERGIES Seasonal Allergies MEDICATIONS dulaglutide (TRULICITY) 3 mg/0.5 mL pen injector Inject 3 mg subcutaneously one time a week. for 4 weeks then increase to 4.5 mg dose. dulaglutide (TRULICITY) 4.5 mg/0.5 mL pen injector Inject 4.5 mg subcutaneously one time a week. Start 1 week after last 3 mg dose. omeprazole (PRILOSEC) 40 mg capsule Take 1 capsule by mouth once daily. CPAP/BIPAP/OTHER Auto bilevel PAP with humidification set at IPAP max 20 cmH2O, EPAP min 9cm H2O and PS of 4 CM H2O. Mask per patient preference. Diagnosis: DWIGHT G47.33 lisinopril (ZESTRIL) 5 mg tablet Take 1 tablet by mouth once daily. Take with 10 mg lisinopril once daily lisinopril (ZESTRIL) 10 mg tablet Take 1 tablet by mouth once daily. Take with 5 mg lisinopril once daily levalbuterol tartrate HFA 45 mcg/actuation inhaler Inhale 1-2 Puffs as instructed every 6 hours as needed for wheezing/shortness of breath. gabapentin (NEURONTIN) 300 mg capsule Take 1 capsule by mouth two times a day. CPAP Initiate Auto PAP @ 5-20 cm of water with humidification. Mask (per patient preference) optional chin strap (if indicated) , filters, tubing, humidifier and lifetime supplies. MAGNESIUM CARBONATE ORAL Take 1 tablet by mouth. DULoxetine (CYMBALTA) 60 mg capsule Take 1 capsule by mouth every morning. DULoxetine (CYMBALTA) 30 mg capsule Take 1 capsule by mouth daily at bedtime. risperiDONE (RISPERDAL) 3 mg tablet Take 1 tablet by mouth twice daily. triamcinolone (KENALOG) 0.025 % cream Apply 1 application to affected area twice daily. (Patient taking differently: Apply 1 application to affected area two times a day. Uses as needed) cloNIDine HCl (CATAPRES) 0.1 mg tablet Takes 1 to 2 pills daily as needed. (per Mother) For anger divalproex ER 500 mg 24 hr tablet Take 1,000 mg by mouth twice daily. FAMILY HISTORY Problem Relation Age of Onset Colon Cancer Father 50's Diabetes Father Hypertension Father Cancer Father Colon Colon Polyps Mother large polyp other (Hypothyroidism [Other]) Mother Colon Polyps Brother Colon Cancer Maternal Grandmother 34 Cancer Maternal Grandmother from breast and uterine cancer Macular Degen Maternal Grandfather Diabetes Maternal Grandfather Colon Cancer Paternal Grandfather late 60's Cancer Paternal Grandfather from Colon Cancer Social History Tobacco Use Smoking status: Never Smokeless tobacco: Never Vaping Use Vaping Use: Never used Substance Use Topics Alcohol use: Never Drug use: Never Review of Systems Constitutional: Positive for chills, fatigue and fever. Negative for diaphoresis. HENT: Positive for congestion and rhinorrhea. Negative for sore throat. Eyes: Negative for pain, discharge, redness and itching. Respiratory: Positive for cough. Negative for apnea and chest tightness. Cardiovascular: Negative for chest pain. Gastrointestinal: Positive for nausea. Negative for abdominal pain, anorexia, change in bowel habit and vomiting. Musculoskeletal: Positive for myalgias. Negative for arthralgias, joint swelling and neck pain. Skin: Negative for color change, pallor and rash. Allergic/Immunologic: Positive for environmental allergies. Negative for food allergies and immunocompromised state. Neurological: Positive for headaches. Negative for vertigo, weakness and numbness. Hematological: Negative for adenopathy. Does not bruise/bleed easily. Psychiatric/Behavioral: Negative for agitation and behavioral problems. Objective BP 110/69 (BP Site: Left Arm, BP Position: Sitting, BP Cuff Size: Large Adult) Pulse 106 Temp 36.9 C (98.5 F) (Tympanic) Resp 20 Wt (!) 164 kg (361 lb 8.9 oz) SpO2 95% BMI 46.42 kg/m Physical Exam Vitals and nursing note reviewed. Constitutional: General: He is not in acute distress. Appearance: Normal appearance. He is not ill-appearing, toxic-appearing or diaphoretic. HENT: Head: Normocephalic and atraumatic. Right Ear: External ear normal. Left Ear: External ear normal. Nose: Nose normal. No congestion or rhinorrhea. Mouth/Throat: Mouth: Mucous membranes are moist. Pharynx: Oropharynx is clear. No oropharyngeal exudate or posterior oropharyngeal erythema. Eyes: General: Right eye: No discharge. Left eye: No discharge. Extraocular Movements: Extraocular movements intact. Conjunctiva/sclera: Conjunctivae normal. Pupils: Pupils are equal, round, and reactive to light. Cardiovascular: Rate and Rhythm: Normal rate and regular rhythm. Pulses: Normal pulses. Heart sounds: Normal heart sounds. No murmur heard. No friction rub. No gallop. Pulmonary: Effort: Pulmonary effort is normal. No respiratory distress. Breath sounds: Normal breath sounds. No stridor. No wheezing, rhonchi or rales. Chest: Chest wall: No tenderness. Abdominal: General: Abdomen is flat. There is no distension. Palpations: Abdomen is soft. There is no mass. Tenderness: There is no abdominal tenderness. There is no guarding or rebound. Hernia: No hernia is present. Musculoskeletal: General: No swelling, tenderness, deformity or signs of injury. Normal range of motion. Cervical back: Normal range of motion and neck supple. No rigidity or tenderness. Right lower leg: No edema. Left lower leg: No edema. Lymphadenopathy: Cervical: No cervical adenopathy. Skin: General: Skin is warm and dry. Capillary Refill: Capillary refill takes less than 2 seconds. Coloration: Skin is not jaundiced or pale. Findings: No bruising, lesion or rash. Neurological: General: No focal deficit present. Mental Status: He is alert and oriented to person, place, and time. Cranial Nerves: No cranial nerve deficit. Sensory: No sensory deficit. Motor: No weakness. Coordination: Coordination normal. Gait: Gait normal. Deep Tendon Reflexes: Reflexes normal. Psychiatric: Mood and Affect: Mood normal. Behavior: Behavior normal. Thought Content: Thought content normal. Assessment and Plan ASSESSMENT/PLAN: 1. URI, acute - ICD9: 465.9, ICD10: J06.9 (primary diagnosis) X 3 days - Discussed viral etiology and rationale for treatment. - Symptomatic treatment with prn analgesia - Supportive care with fluids and rest - The patient may also use OTC cough and cold meds as needed, warm salt water gargles, throat lozenges and/or OTC throat spray as needed, and nasal saline gtts and suction prn. - Follow up in 3-5 days if symptoms persist or sooner if worsening of symptoms - XR CHEST 2V FRONTAL/LAT 2. Acute cough - ICD9: 786.2, ICD10: R05.1 X 3 days Lungs CTA Mom endorses she is concerned for pneumonia - XR CHEST 2V FRONTAL/LAT-RESULT: Lines, tubes, and devices: None. Lungs and pleura: There is prominence of the pulmonary markings in the left lower lung. No definite consolidation. No lung mass. No pleural effusion. No pneumothorax. Cardiomediastinal silhouette: Normal cardiomediastinal silhouette. Bones and soft tissues: Unremarkable. Anneliese Francisco APRN.RETAIL SALES MERCHANDISER documented in this encounter [facility] 10-12-2023 Miscellaneous Notes Patient's mother Dea called in regarding the trulicity. She says the patient is diabetic. Patient still has not received trulicity documented in this encounter [facility] 09-28-2023 History of Presen t illness Narrative BMI Obesity Medicine FollowUp Note Distance Health Visit September 28, 2023 I have communicated my name and active licensure. The patient's identity and physical location were verified at the time of this visit. Either the patient or their legal kiosk sales representative has been informed of the risks and benefits of -- and alternatives to -- treatment through a remote evaluation and consents to proceed with the evaluation remotely. Patient Summary: Niko Brooke is 33 year old Male who presents virtually for follow-up evaluation of his obesity and related complications to the [facility] Bariatric and Metabolic [place]. In our previous visits we have outlined an individualized lifestyle intervention including a personalized nutrition recommendations and physical activity optimization. KIKI 12/26/2022: Impression: Niko Brooke is a 32 year old year old male with Class III obesity and the above obesity related complications. Body mass index is 47.63 kg/m . Currently taking Dulaglutide 1.5., responding fair. Lifestyle improved somewhat. Discussed goals. Motivated. Plan: -- continue improving diet and exercise. -- Change Dulaglutide to 3 mg weekly inj. -- return to clinic/virtually in 3 months I spent a total of 18 minutes on the date of the service which included preparing to see the patient, [id number] patient care, completing clinical documentation, obtaining and/or reviewing separately obtained history, performing a medically appropriate examination, counseling and educating the patient/family/caregiver, and ordering medications, tests, or procedures. Carmelita Thomas APRN.[employer]TA[employer] SALES MERCHANDISER Initial Program Weight 379 lbs Weight Graph Interval History: He specifies the following items as new or significant updates since the last appointment: Returns after 9 months Reports weight is decreased since the last visit. Obesity Medications: Dulaglutide 3 mg weekly. Start Date: 10/31/2022 Weight: 379 lbs - Insurance stopped covering without dx of DM2 but he actually has a dx of T2DM. - No s/e. - Decreased appetite. Diet: - Cut out most of regular pop and candy. - High protein snack - Decreasing portions. Exercise: - Walking more, keeping active. ?Sleep: Change in sleep No ??Stress: - Increased personal stress Review of Systems: The physical systems reviewed reveal no pathological symptoms that are pertinent to this visit, Diabetes Yes, HTN: Yes, Cardiac: No, and Pulmonary: DWIGHT History reviewed in [facility] Allergies: Seasonal Allergies Other: See Comments Current Outpatient Medications Medication Sig omeprazole (PRILOSEC) 40 mg capsule Take 1 capsule by mouth once daily. CPAP/BIPAP/OTHER Auto bilevel PAP with humidification set at IPAP max 20 cmH2O, EPAP min 9cm H2O and PS of 4 CM H2O. Mask per patient preference. Diagnosis: DWIGHT G47.33 dulaglutide (TRULICITY) 3 mg/0.5 mL pen injector Inject 3 mg subcutaneously one time a week. lisinopril (ZESTRIL) 5 mg tablet Take 1 tablet by mouth once daily. Take with 10 mg lisinopril once daily lisinopril (ZESTRIL) 10 mg tablet Take 1 tablet by mouth once daily. Take with 5 mg lisinopril once daily levalbuterol tartrate HFA 45 mcg/actuation inhaler Inhale 1-2 Puffs as instructed every 6 hours as needed for wheezing/shortness of breath. gabapentin (NEURONTIN) 300 mg capsule Take 1 capsule by mouth two times a day. CPAP Initiate Auto PAP @ 5-20 cm of water with humidification. Mask (per patient preference) optional chin strap (if indicated) , filters, tubing, humidifier and lifetime supplies. MAGNESIUM CARBONATE ORAL Take 1 tablet by mouth. (Patient not taking: Reported on 07/13/2023) DULoxetine (CYMBALTA) 60 mg capsule Take 1 capsule by mouth every morning. DULoxetine (CYMBALTA) 30 mg capsule Take 1 capsule by mouth daily at bedtime. risperiDONE (RISPERDAL) 3 mg tablet Take 1 tablet by mouth twice daily. triamcinolone (KENALOG) 0.025 % cream Apply 1 application to affected area twice daily. (Patient taking differently: Apply 1 application to affected area two times a day. Uses as needed) cloNIDine HCl (CATAPRES) 0.1 mg tablet Takes 1 to 2 pills daily as needed. (per Mother) For anger divalproex ER 500 mg 24 hr tablet Take 1,000 mg by mouth twice daily. No current facility-administered medications for this visit. PAST MEDICAL HISTORY Diagnosis Date Asthma 03/05/2010 ATTN DEFICIT NONHYPERACT 04/18/2006 Congenital pes planus 09/27/2010 DEPRESSIVE DISORDER NEC 04/18/2006 Encopresis 12/15/2014 Enuresis 12/15/2014 Excessive anger 07/14/2012 followed by psychiatry Family history of colon cancer Maternal Grandmother was 33years old when diagnosed and from colon cancer (will need colonoscopy at 28years old for screeening) Mental retardation, moderate (I.Q. 35-49) 10/12/2007 Obesity 12/15/2014 S/P lumbar laminectomy 09/2019 Dr. Weinstein Spinal stenosis of lumbar region with neurogenic claudication 05/10/2019 PAST SURGICAL HISTORY Procedure Laterality Date CIRCUMCISION LAMINECTOMY,LUMBAR 09/2019 L3,4,5 Dr. Weinstein TONSILLECTOMY & ADENOIDECTOMY <AGE 14 Social Connections: Not on file Family History Problem Relation Age of Onset Colon Cancer Father 50's Diabetes Father Hypertension Father Cancer Father Colon Colon Polyps Mother large polyp other (Hypothyroidism [Other]) Mother Colon Polyps Brother Colon Cancer Maternal Grandmother 34 Cancer Maternal Grandmother from breast and uterine cancer Macular Degen Maternal Grandfather Diabetes Maternal Grandfather Colon Cancer Paternal Grandfather late 60's Cancer Paternal Grandfather from Colon Cancer Physical Exam: Weight: (!) 159.7 kg (352 lb) Patient reported weight. VIDEO EXAM: (if done, performed via video enabled technology) General appearance: NAD Mental status: awake and alert Pulm: not visibly SOB Neuro: speech fluent Impression: Niko Brooke is a 33 year old year old male with Class III obesity and the above obesity related complications. Body mass index is 45.19 kg/m . Currently taking Dulaglutide 3 mg weekly., responding well. PA was denied because of lack of T2DM however he does have T2DM (HgB A1C 6.5 on 12/07/2021). Sent message to nurse to redo the PA. Lifestyle improved Currently motivated. Plan: -- continue improving diet and exercise. -- Plan to restart Dulaglutide 3 mg weekly x 4 weeks then increase to 4.5 mg weekly once the PA is complete. -- return to clinic/virtually in 3 months I spent a total of 20 minutes on the date of the service which included preparing to see the patient, [id number] patient care, completing clinical documentation, obtaining and/or reviewing separately obtained history, performing a medically appropriate examination, counseling and educating the patient/family/caregiver, and ordering medications, tests, or procedures. Some documentation from previous visit of 12/26/2022 was copied and pasted, documentation has been reviewed and edited as necessary for today's visit. Carmelita Thomas APRN.CNP documented in this encounter [facility] 09-25-2023 Miscellaneous Notes Patient's mother notified, verbalized understanding. Patient is scheduled next week with the bariatric provider. Schuyler Ramon Ma Check to see if would make an appt with bariatric provider, previously seen by Carmelita Thomas CNP that ordered the Trulicity for him. She may be able to figure something out to help or offer an alternate. Spoke with mother and message below given. She is asking what they do next. Mother advised weight loss medications are not covered. Please advise mother. Antoinette Sommer LPN noted Sw reviewed [employer] PAP program. Program website notes that company is not accepting new applications at this time for Trulicity. Check with Niko Brooke to see if wanting to purchase this out of pocket. There may also be an assistance program. Will route to . Weight loss medicine is excluded. Do not know how this was covered previously. No PA was ever completed for this. He did have DM, resolved on treatment. Has been taking dulaglutide since 11/04/2022. Component Latest Ref Rng & Units 12/07/2021 04/23/2022 07/22/2022 11/08/2022 03/02/2023 07/27/2023 Hemoglobin A1C 4.3 - 5.6 % 6.5 (H) 6.4 (H) 6.3 (H) 6.0 (H) 5.3 5.1 Estimated Average Glucose mg/dL 140 137 134 126 105 100 Will they cover for obesity treatment? He has gone from 386 lbs to 352 lbs while taking dulaglutide. Or is there another similar medication on his formulary? This was denied. Dx is pre diabetes. He does not have diabetes. Last A1c was 07/27/23 it was 5.1 It does not say what would be covered. NIKO BROOKE (Alvarez: BDGQTQNP) PA Rx #: [id number] Outcome Denied today Your request has been denied Drug Trulicity 3MG/0.5ML pen-injectors [facility] cloud logo Form [employer] Electronic Prior Authorization Request Form (2016 [facility]) Original Claim Info [id number]: Patient appeal noticerequired by [facility].[id number]: Will wait for fax to see what is formulary Covermymed PA completed for trulicity. NIKO BROOKE (Alvarez: BDGQTQNP) - [id number] Trulicity 3MG/0.5ML pen-injectors Status: PA Request Created: September 16, 2023 [id number] Sent: September 16, 2023 documented in this encounter [facility] 07-15-2023 Miscellaneous Notes OV note, new RX for PAP, insurance information and face sheet faxed to [facility]. Mindy Palencia LPN Printed APAP Rx and completed note with explanation Spoke with [facility] staff concerning what patient need to resume PAP machine. Last OV note needing to have the reason why the patient was n on-compliant with last PAP, in OV notes. New RX with PAP settings. No new studies needing to be performed. Mindy Palencia LPN documented in this encounter [facility] 05-23-2023 History of Presen t illness Narrative Patient presents with: Dental Problem: Tooth pain x 1 day HPI: Tooth pain: Duration: hurting today. He was at the dentist 2 days ago and had 2 other teeth filled. He is going to have some teeth pulled. Location: right upper back tooth Character: hurts Pain relievers: Motrin Associated: swelling Pertinent negatives: Denies fever, drainage MEDICATIONS: dulaglutide (TRULICITY) 3 mg/0.5 mL pen injector^Inject 3 mg subcutaneously one time a week.^Disp: 2 mL^Rfl: 3 CPAP^Initiate Auto PAP @ 5-20 cm of water with humidification. Mask (per patient preference) optional chin strap (if indicated) , filters, tubing, humidifier and lifetime supplies.^Disp: 1 Each^Rfl: 0 lisinopril (ZESTRIL, PRINIVIL) 5 mg tablet^Take 1 tablet by mouth once daily. Take with 10 mg lisinopril once daily^Disp: 30 tablet^Rfl: 11 lisinopril (ZESTRIL, PRINIVIL) 10 mg tablet^Take 1 tablet by mouth once daily. Take with 5 mg lisinopril once daily^Disp: 30 tablet^Rfl: 11 gabapentin (NEURONTIN) 300 mg capsule^Take 1 capsule by mouth twice daily.^Disp: 60 capsule^Rfl: 11 levalbuterol tartrate HFA 45 mcg/actuation inhaler^Inhale 1-2 Puffs as instructed every 6 hours as needed for wheezing/shortness of breath.^Disp: 1 Each^Rfl: 5 MAGNESIUM CARBONATE ORAL^Take 1 tablet by mouth.^Disp: ^Rfl: DULoxetine (CYMBALTA) 60 mg capsule^Take 1 capsule by mouth every morning.^Disp: ^Rfl: DULoxetine (CYMBALTA) 30 mg capsule^Take 1 capsule by mouth daily at bedtime.^Disp: ^Rfl: risperiDONE (RISPERDAL) 3 mg tablet^Take 1 tablet by mouth twice daily.^Disp: ^Rfl: triamcinolone (KENALOG) 0.025 % cream^Apply 1 application to affected area twice daily.^Disp: 30 g^Rfl: 0 (Patient taking differently: Apply 1 application to affected area two times a day. Uses as needed) cloNIDine HCl (CATAPRES) 0.1 mg tablet^Takes 1 to 2 pills daily as needed. (per Mother) For anger^Disp: ^Rfl: divalproex ER 500 mg 24 hr tablet^Take 1,000 mg by mouth twice daily. ^Disp: ^Rfl: amoxicillin (AMOXIL) 875 mg tablet^Take 1 tablet by mouth two times a day for 5 days.^Disp: 10 tablet^Rfl: 0 omeprazole (PRILOSEC) 40 mg capsule^Take 1 capsule by mouth once daily.^Disp: 30 capsule^Rfl: 11 ALLERGIES: ALLERGIES Allergen Reactions Seasonal Allergies Other: See Comments VITALS: BP 122/80 Pulse 94 Temp 36.3 C (97.3 F) (Tympanic) Resp 16 Wt (!) 162.7 kg (358 lb 9.6 oz) BMI 46.04 kg/m PE: Pleasant, in no acute distress. Accompanied by his mother who assists with the history. Mouth: mild swelling over the right cheek. Tender right upper last molar, small bulge in the outer gingiva above the tooth. ASSESSMENT/PLAN: 1. Toothache - ICD9: 525.9, ICD10: K08.89 - AMOXICILLIN 875 MG TABLET Continue ibuprofen and keep follow up with dentist. Sreekanth Ackerman MD documented in this encounter [facility] 02-13-2023 History of Presen t illness Narrative Images from the original note were not included. Subjective HPI HPI Niko Brooke is a 32 year old male who presents today for CC of left foot and ankle pain. This started 2 weeks ago. Has tried otc medication and compression for relief. Symptoms are worsened by walking. Denies history of surgery or injury to left lower extremity. Denies numbness and tingling of left lower extremity. No injury noted. .Patient presents with: Pain: Pt reported (LT) ankle pain, x2 wks, recent express care visit, [place], no xray performed pain rated 5, denied injury. PAST MEDICAL HISTORY Diagnosis Date Asthma 03/05/2010 ATTN DEFICIT NONHYPERACT 04/18/2006 Congenital pes planus 09/27/2010 DEPRESSIVE DISORDER NEC 04/18/2006 Encopresis 12/15/2014 Enuresis 12/15/2014 Excessive anger 07/14/2012 followed by psychiatry Family history of colon cancer Maternal Grandmother was 33years old when diagnosed and from colon cancer (will need colonoscopy at 28years old for screeening) Mental retardation, moderate (I.Q. 35-49) 10/12/2007 Obesity 12/15/2014 S/P lumbar laminectomy 09/2019 Dr. Weinstein Spinal stenosis of lumbar region with neurogenic claudication 05/10/2019 PAST SURGICAL HISTORY Procedure Laterality Date CIRCUMCISION LAMINECTOMY,LUMBAR 09/2019 L3,4,5 Dr. Weinstein TONSILLECTOMY & ADENOIDECTOMY <AGE 14 ALLERGIES Seasonal Allergies MEDICATIONS dulaglutide (TRULICITY) 3 mg/0.5 mL pen injector^Inject 3 mg subcutaneously one time a week.^Disp: 2 mL^Rfl: 3 CPAP^Initiate Auto PAP @ 5-20 cm of water with humidification. Mask (per patient preference) optional chin strap (if indicated) , filters, tubing, humidifier and lifetime supplies.^Disp: 1 Each^Rfl: 0 lisinopril (ZESTRIL, PRINIVIL) 5 mg tablet^Take 1 tablet by mouth once daily. Take with 10 mg lisinopril once daily^Disp: 30 tablet^Rfl: 11 lisinopril (ZESTRIL, PRINIVIL) 10 mg tablet^Take 1 tablet by mouth once daily. Take with 5 mg lisinopril once daily^Disp: 30 tablet^Rfl: 11 gabapentin (NEURONTIN) 300 mg capsule^Take 1 capsule by mouth twice daily.^Disp: 60 capsule^Rfl: 11 levalbuterol tartrate HFA 45 mcg/actuation inhaler^Inhale 1-2 Puffs as instructed every 6 hours as needed for wheezing/shortness of breath.^Disp: 1 Each^Rfl: 5 MAGNESIUM CARBONATE ORAL^Take 1 tablet by mouth.^Disp: ^Rfl: DULoxetine (CYMBALTA) 60 mg capsule^Take 1 capsule by mouth every morning.^Disp: ^Rfl: DULoxetine (CYMBALTA) 30 mg capsule^Take 1 capsule by mouth daily at bedtime.^Disp: ^Rfl: risperiDONE (RISPERDAL) 3 mg tablet^Take 1 tablet by mouth twice daily.^Disp: ^Rfl: triamcinolone (KENALOG) 0.025 % cream^Apply 1 application to affected area twice daily.^Disp: 30 g^Rfl: 0 (Patient taking differently: Apply 1 application to affected area twice daily. Uses as needed) cloNIDine HCl (CATAPRES) 0.1 mg tablet^Takes 1 to 2 pills daily as needed. (per Mother) For anger^Disp: ^Rfl: divalproex ER 500 mg 24 hr tablet^Take 1,000 mg by mouth twice daily. ^Disp: ^Rfl: omeprazole (PRILOSEC) 40 mg capsule^Take 1 capsule by mouth once daily.^Disp: 30 capsule^Rfl: 11 FAMILY HISTORY Problem Relation Age of Onset Colon Cancer Father 50's Diabetes Father Hypertension Father Cancer Father Colon Colon Polyps Mother large polyp other (Hypothyroidism [Other]) Mother Colon Polyps Brother Colon Cancer Maternal Grandmother 34 Cancer Maternal Grandmother from breast and uterine cancer Macular Degen Maternal Grandfather Diabetes Maternal Grandfather Colon Cancer Paternal Grandfather late 60's Cancer Paternal Grandfather from Colon Cancer Social History Tobacco Use Smoking status: Never Smokeless tobacco: Never Vaping Use Vaping Use: Never used Substance Use Topics Alcohol use: Never Drug use: Never ROS Objective Blood pressure 122/68, pulse 110, temperature 36.6 C (97.8 F), temperature source Tympanic, resp. rate 20, weight (!) 166.6 kg (367 lb 3.2 oz), SpO2 98 %. Physical Exam Cardiovascular: Pulses: Dorsalis pedis pulses are 2+ on the right side. Posterior tibial pulses are 2+ on the right side. Musculoskeletal: Feet: ASSESSMENT/PLAN: 1. Acute left ankle pain - ICD9: 719.47, ICD10: M25.572 (primary diagnosis) -no bony abnormality noted on xray -Rest, Ice, Compression, Elevation discussed -discussed use of ibuprofen -follow up with primary care if symptoms persist/worsen in 10-14 days - XR ANKLE GENERAL 3V AP/LAT/OBL LEFT IMPRESSION IMPRESSION: No acute radiographic abnormalities seen in the left ankle. Dictated by : ASHWIN SAMANIEGO MD 2. Foot pain, left - ICD9: 729.5, ICD10: M79.672 -no bony abnormality noted on xray -Rest, Ice, Compression, Elevation discussed -discussed use of ibuprofen -follow up with primary care if symptoms persist/worsen in 10-14 days - XR FOOT GENERAL 3V AP/LAT/OBL LEFT IMPRESSION: Pes planus. Dictated by : MD Celso FRANKLIN APRN.RETAIL SALES MERCHANDISER documented in this encounter [facility] 02-13-2023 History of Presen t illness Narrative Radiology Service Progress Note PATIENT NAME: Niko Brooke DATE OF SERVICE: February 13, 2023 TIME: 4:50 PM PATIENT IDENTITY VERIFICATION COMPLETED USING TWO (2) IDENTIFIERS: Name and Date of confirmed by patient verbally. FALL SCREENING: Has the patient had 2 falls in the last year or 1 fall with injury or currently using an Ambulatory Assistive Device (Walker, Cane, Wheelchair, Crutches, etc.)? No PATIENT GENDER DATA: Male PATIENT RELEVANT IMPLANT DATA REVIEWED: Not Applicable RADIOLOGY DEPARTMENT: General X-ray: Exam(s) Completed: Lower Extremity X-Ray(s): Ankle, Left and Wt. Bearing and Foot, Left and Wt. Bearing PERIPHERAL IV DATA: Not applicable SIGNED BY: RT Fariba(R) February 13, 2023 4:50 PM documented in this encounter [facility] 12-30-2022 Miscellaneous Notes Lanie/mother notified, forms are in Med Recs for her to pickup. Madina Webber LPN TC to patient's mother. Line rings busy. Will try again at a later time. Please let her know that forms along with last office note was taken to medical records for pick up driver. Form was completed by mother. I did not do the full exam that was checked off but I had seen him and did an exam. The most recent progress notes can be attached. Form was signed and given to Mindy Patient's mother dropped off forms needing filled out for [employer]. Requesting a call from nursing when forms completed, will pick them up. Mindy Palencia LPN documented in this encounter [facility] 12-26-2022 History of Presen t illness Narrative BMI Obesity Medicine FollowUp Note [facility] Visit December 26, 2022 Virtual Visit (Audio/Visual)"I have discussed the nature of this visit with the patient which will occur via [facility] (Phone, Virtual Visit) and he agrees to proceed with this interaction". I have communicated my name and active licensure. The patient's identity and physical location were verified at the time of this visit. Either the patient or their legal kiosk sales representative has been informed of the risks and benefits of -- and alternatives to -- treatment through a remote evaluation and consents to proceed with the evaluation remotely. - Done, at home. Patient Summary: Niko Brooke is 32 year old Male who presents virtually for follow-up evaluation of his obesity and related complications to the [facility] Bariatric and Metabolic [place]. In our previous visits we have outlined an individualized lifestyle intervention including a personalized nutrition recommendations and physical activity optimization. KIKI 10/03/2022: Impression: Niko Brooke is a 32 year old male with Class III obesity (Body mass index is 48.66 kg/m .) who has childhood onset obesity with gradual weight gain. Presents with mom via virtual visit. The causes of his obesity are multifactorial, biological, psychological and social and environmental. Specific factors include a genetic component related to a strong family of obesity, exposure to weight gain promoting medication(s) , increased consumption of high calorie/process foods, suboptimal physical activity, and dislike of fruits and vegetables. He has several weight-related medical comorbidities which increase his cardiovascular mortality risk. There are additional metabolic obesity complications including pre-diabetes, dyslipidemia, hypertension, and obstructive sleep apnea. Other medical conditions as above. Regarding his lifestyle, as above, he has numerous behavioral contributors; his physical activity is non-existent. Overall, it is clear that his quality of life is severely compromised by his weight. It is likely a combination of weight loss therapies will be needed. He appears motivated today. Plan: -- Based on the severity and resistance of the obesity to more conservative weight loss approaches, I believe a combination of behavioral and pharmacological intervention is the best and most appropriate senior living therapeutic option. -- We discussed several strategies to track food intake and increase mindfulness around eating. He was counseled on Food records and snack replacements and adding more fruits/vegetables. Also recommended establishing with bariatric health services rn. -- Encouraged the patient to improve his physical activity. Although cardiovascular exercise is most beneficial for weight loss initially, we discussed healthy muscle from a combination of resistance training and cardiovascular exercise is the best 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 plan. An overall goal of 200 minutes per week of exercise has been effective in weight loss and maintenance. -- Recommended trial of dulaglutide for appetite suppression. Discussed common s/e and medication administration with mom and pt. Provided drug information via [employer] message and recommended watching the "How to use pen" video. Start Dulaglutide (Trulicity) 0.75 mg weekly inj x 4 weeks then increase to 1.5 mg weekly inj. -- follow-up visit for management of above interventions 2 months. Mutually Agreed Upon Goals Eating Plan: - Lose it BETHANY - Log intake 1-2 days per week. - Consider protein supplement for snack. - Applesauce is good. - Consider tuna or chicken salad wrap for lunch. - Consider smoothies with added vegetables and fruit. To schedule with bariatric nutrition call [phone]. Also schedule 2 month follow up with me. Activity: Create a habit of physical activity 3 days per week. Consider chair exercise on [employer]. Sleep: Continue using using CPAP. I spent a total of 47 minutes on the date of the service which included preparing to see the patient, [id number] patient care, completing clinical documentation, obtaining and/or reviewing separately obtained history, performing a medically appropriate examination, counseling and educating the patient/family/caregiver, and ordering medications, tests, or procedures. Carmelita hTomas APRN.RETAIL SALES MERCHANDISER Weight Graph; (please see graph scanned in chart or EPIC synopsis below) Interval History: He specifies the following items as new or significant updates since the last appointment: Returns after 3 months Reports weight is decreased since the last visit. Obesity Medications: Dulaglutide (Trulicity) 1.5 mg weekly inj. Start Date: 10/03/2022 Weight: 379 lbs Effects Reduction of appetite S/E: nausea once. Diet: - Tuna or chicken for lunch - Diet soda or gatorade - Hasn't started high protein snack yet. Exercise: - Trying to be more active. ?Sleep: - CPAP: using nightly. ??Stress: - sometimes good, sometimes elevated. Review of Systems: The physical systems reviewed reveal no pathological symptoms that are pertinent to this visit, Diabetes protein, HTN: Yes, Cardiac: No, and Pulmonary: DWIGHT History reviewed in Epic ALLERGIES Allergen Reactions Seasonal Allergies Other: See Comments Current Outpatient Medications Medication Sig CPAP Initiate Auto PAP @ 5-20 cm of water with humidification. Mask (per patient preference) optional chin strap (if indicated) , filters, tubing, humidifier and lifetime supplies. dulaglutide (TRULICITY) 1.5 mg/0.5 mL pen injector Inject 1.5 mg subcutaneously one time a week. start 1 week after last 0.75 mg dose omeprazole (PRILOSEC) 40 mg capsule Take 1 capsule by mouth once daily. lisinopril (ZESTRIL, PRINIVIL) 5 mg tablet Take 1 tablet by mouth once daily. Take with 10 mg lisinopril once daily lisinopril (ZESTRIL, PRINIVIL) 10 mg tablet Take 1 tablet by mouth once daily. Take with 5 mg lisinopril once daily gabapentin (NEURONTIN) 300 mg capsule Take 1 capsule by mouth twice daily. levalbuterol tartrate HFA 45 mcg/actuation inhaler Inhale 1-2 Puffs as instructed every 6 hours as needed for wheezing/shortness of breath. MAGNESIUM CARBONATE ORAL Take 1 tablet by mouth. DULoxetine (CYMBALTA) 60 mg capsule Take 1 capsule by mouth every morning. DULoxetine (CYMBALTA) 30 mg capsule Take 1 capsule by mouth daily at bedtime. risperiDONE (RISPERDAL) 3 mg tablet Take 1 tablet by mouth twice daily. triamcinolone (KENALOG) 0.025 % cream Apply 1 application to affected area twice daily. (Patient taking differently: Apply 1 application to affected area twice daily. Uses as needed) cloNIDine HCl (CATAPRES) 0.1 mg tablet Takes 1 to 2 pills daily as needed. (per Mother) For anger divalproex ER 500 mg 24 hr tablet Take 1,000 mg by mouth twice daily. Current Facility-Administered Medications Medication Dose Route Frequency perflutren lipid microspheres 1.3 mL in NaCl (PF) 0.9% 10 mL injection (DEFINITY) INTRAVENOUS DIRECTED PRN sodium chloride 0.9 % (flush) 10 mL (BD POSIFLUSH) 10 mL INTRAVENOUS DIRECTED PRN PAST MEDICAL HISTORY Diagnosis Date Asthma 03/05/2010 ATTN DEFICIT NONHYPERACT 04/18/2006 Congenital pes planus 09/27/2010 DEPRESSIVE DISORDER NEC 04/18/2006 Encopresis 12/15/2014 Enuresis 12/15/2014 Excessive anger 07/14/2012 followed by psychiatry Family history of colon cancer Maternal Grandmother was 33years old when diagnosed and from colon cancer (will need colonoscopy at 28years old for screeening) Mental retardation, moderate (I.Q. 35-49) 10/12/2007 Obesity 12/15/2014 S/P lumbar laminectomy 09/2019 Dr. Weinstein Spinal stenosis of lumbar region with neurogenic claudication 05/10/2019 PAST SURGICAL HISTORY Procedure Laterality Date CIRCUMCISION LAMINECTOMY,LUMBAR 09/2019 L3,4,5 Dr. Weinstein TONSILLECTOMY & ADENOIDECTOMY <AGE 14 Social Connections: Not on file Family History Problem Relation Age of Onset Colon Cancer Father 50's Diabetes Father Hypertension Father Cancer Father Colon Colon Polyps Mother large polyp other (Hypothyroidism [Other]) Mother Colon Polyps Brother Colon Cancer Maternal Grandmother 34 Cancer Maternal Grandmother from breast and uterine cancer Macular Degen Maternal Grandfather Diabetes Maternal Grandfather Colon Cancer Paternal Grandfather late 60's Cancer Paternal Grandfather from Colon Cancer Physical Exam: Weight: (!) 168.3 kg (371 lb) Patient reported weight. VIDEO EXAM: (if done, performed via video enabled technology) General appearance: NAD Mental status: awake and alert Pulm: not visibly SOB Neuro: speech fluent Impression: Niko Brooke is a 32 year old year old male with Class III obesity and the above obesity related complications. Body mass index is 47.63 kg/m . Currently taking Dulaglutide 1.5., responding fair. Lifestyle improved somewhat. Discussed goals. Motivated. Plan: -- continue improving diet and exercise. -- Change Dulaglutide to 3 mg weekly inj. -- return to clinic/virtually in 3 months I spent a total of 18 minutes on the date of the service which included preparing to see the patient, [id number] patient care, completing clinical documentation, obtaining and/or reviewing separately obtained history, performing a medically appropriate examination, counseling and educating the patient/family/caregiver, and ordering medications, tests, or procedures. Carmelita Thomas APRN.RETAIL SALES MERCHANDISER documented in this encounter [facility] 12-17-2022 History of Presen t illness Narrative Images from the original note were not included. This note was created using [employer]. Subjective Niko Brooke is a 32 year old male. HPI Patient presents with a sore on the bottom of his left foot for 2 weeks. Mom states it has not been healing. She has been trying to soak it and keep it covered and put ointment on it. He did break a picture frame with some glass a while ago mom's not sure if maybe he stepped on something. Review of Systems Musculoskeletal: Left foot wound All other systems reviewed and are negative. PAST MEDICAL HISTORY Diagnosis Date Asthma 03/05/2010 ATTN DEFICIT NONHYPERACT 04/18/2006 Congenital pes planus 09/27/2010 DEPRESSIVE DISORDER NEC 04/18/2006 Encopresis 12/15/2014 Enuresis 12/15/2014 Excessive anger 07/14/2012 followed by psychiatry Family history of colon cancer Maternal Grandmother was 33years old when diagnosed and from colon cancer (will need colonoscopy at 28years old for screeening) Mental retardation, moderate (I.Q. 35-49) 10/12/2007 Obesity 12/15/2014 S/P lumbar laminectomy 09/2019 Dr. Weinstein Spinal stenosis of lumbar region with neurogenic claudication 05/10/2019 Current Outpatient Medications Medication Sig Dispense Refill CPAP Initiate Auto PAP @ 5-20 cm of water with humidification. Mask (per patient preference) optional chin strap (if indicated) , filters, tubing, humidifier and lifetime supplies. 1 Each 0 dulaglutide (TRULICITY) 1.5 mg/0.5 mL pen injector Inject 1.5 mg subcutaneously one time a week. start 1 week after last 0.75 mg dose 2 mL 1 lisinopril (ZESTRIL, PRINIVIL) 5 mg tablet Take 1 tablet by mouth once daily. Take with 10 mg lisinopril once daily 30 tablet 11 lisinopril (ZESTRIL, PRINIVIL) 10 mg tablet Take 1 tablet by mouth once daily. Take with 5 mg lisinopril once daily 30 tablet 11 gabapentin (NEURONTIN) 300 mg capsule Take 1 capsule by mouth twice daily. 60 capsule 11 levalbuterol tartrate HFA 45 mcg/actuation inhaler Inhale 1-2 Puffs as instructed every 6 hours as needed for wheezing/shortness of breath. 1 Each 5 MAGNESIUM CARBONATE ORAL Take 1 tablet by mouth. DULoxetine (CYMBALTA) 60 mg capsule Take 1 capsule by mouth every morning. DULoxetine (CYMBALTA) 30 mg capsule Take 1 capsule by mouth daily at bedtime. risperiDONE (RISPERDAL) 3 mg tablet Take 1 tablet by mouth twice daily. triamcinolone (KENALOG) 0.025 % cream Apply 1 application to affected area twice daily. (Patient taking differently: Apply 1 application to affected area twice daily. Uses as needed) 30 g 0 cloNIDine HCl (CATAPRES) 0.1 mg tablet Takes 1 to 2 pills daily as needed. (per Mother) For anger divalproex ER 500 mg 24 hr tablet Take 1,000 mg by mouth twice daily. cephALEXin (KEFLEX) 500 mg capsule Take 1 capsule by mouth three times daily for 7 days. 21 capsule 0 omeprazole (PRILOSEC) 40 mg capsule Take 1 capsule by mouth once daily. 30 capsule 11 Current Facility-Administered Medications Medication Dose Route Frequency Provider Last Rate Last Admin perflutren lipid microspheres 1.3 mL in NaCl (PF) 0.9% 10 mL injection (DEFINITY) INTRAVENOUS DIRECTED PRN Ligia Older, SALES LEAD.RETAIL SALES MERCHANDISER sodium chloride 0.9 % (flush) 10 mL (BD POSIFLUSH) 10 mL INTRAVENOUS DIRECTED PRN Ligia Older, SALES LEAD.RETAIL SALES MERCHANDISER PAST SURGICAL HISTORY Procedure Laterality Date CIRCUMCISION LAMINECTOMY,LUMBAR 09/2019 L3,4,5 Dr. Weinstein TONSILLECTOMY & ADENOIDECTOMY <AGE 14 FAMILY HISTORY Problem Relation Age of Onset Colon Cancer Father 50's Diabetes Father Hypertension Father Cancer Father Colon Colon Polyps Mother large polyp other (Hypothyroidism [Other]) Mother Colon Polyps Brother Colon Cancer Maternal Grandmother 34 Cancer Maternal Grandmother from breast and uterine cancer Macular Degen Maternal Grandfather Diabetes Maternal Grandfather Colon Cancer Paternal Grandfather late 60's Cancer Paternal Grandfather from Colon Cancer Social History Tobacco Use Smoking status: Never Smokeless tobacco: Never Vaping Use Vaping Use: Never used Substance Use Topics Alcohol use: Never Drug use: Never Objective BP 118/78 Pulse 94 Temp 36.8 C (98.2 F) (Tympanic) Resp 18 Wt (!) 168.4 kg (371 lb 3.2 oz) SpO2 96% BMI 47.66 kg/m Physical Exam Vitals reviewed. Constitutional: Appearance: Normal appearance. HENT: Head: Normocephalic and atraumatic. Musculoskeletal: Feet: Feet: Comments: Patient has an open wound with some mild swelling and erythema to the lateral left foot. No lymphangitic streaking. No active bleeding. No puslike drainage from it. Skin: General: Skin is warm and dry. Neurological: Mental Status: He is alert. Assessment and Plan ASSESSMENT/PLAN: 1. Puncture wound of left foot with foreign body, initial encounter - ICD9: 892.1, ICD10: S91.342A There was a radiopaque foreign body in the lateral foot seen on x-ray. I was able to remove this with tweezers easily. A small piece of glass was removed in its entirety. Discussed wound care. Did place him on Keflex as it does appear it is starting to get infected. His Tdap was updated. Discussed if not improving would follow-up with podiatry. Mom agreeable with plan. - XR FOOT GENERAL 3V AP/LAT/OBL LEFT Madelaine Mancuso PA-C documented in this encounter [facility] 12-04-2022 Miscellaneous Notes Order faxed to [employer] Addended by: SARAH HERRMANN on: 12/04/2022 03:28 PM Modules accepted: Orders OK., fax order to [employer] Mom (Lanie) calls to report C-pap machine is broken and requesting new order be sent to [facility]. Pended previous order. Please fax to [phone]. Piotr Lindsey RN documented in this encounter [facility] 11-18-2022 Miscellaneous Notes Patient given results and verbalized understanding of instructions given. Kelly Bocanegra Call and let patient know he was positive for COVID-19. He needs to quarantine for 5 days from first onset of symptoms. On day 6 if feeling better and no fever may return to work but needs to wear a mask for another 5 days. Follow-up with PCP if not improving. documented in this encounter [facility] 11-17-2022 History of Presen t illness Narrative Patient presents with: Head Congestion: cough x 4 days HPI: Feeling sick for 5 days; he is starting to feel better. 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 His mother is sick now also. Positive symptoms: cough, Sinus pressure, Nasal Congestion, Rhinorrhea, resolved Fever, Body Aches, Malaise, Headache, lost smell (resolved) Negative symptoms: Shortness of breath, Nausea, Vomiting, Diarrhea, OTC: sinus medicine PAST MEDICAL HISTORY Diagnosis Date Asthma 03/05/2010 ATTN DEFICIT NONHYPERACT 04/18/2006 Congenital pes planus 09/27/2010 DEPRESSIVE DISORDER NEC 04/18/2006 Encopresis 12/15/2014 Enuresis 12/15/2014 Excessive anger 07/14/2012 followed by psychiatry Family history of colon cancer Maternal Grandmother was 33years old when diagnosed and from colon cancer (will need colonoscopy at 28years old for screeening) Mental retardation, moderate (I.Q. 35-49) 10/12/2007 Obesity 12/15/2014 S/P lumbar laminectomy 09/2019 Dr. Weinstein Spinal stenosis of lumbar region with neurogenic claudication 05/10/2019 MEDICATIONS: Current Outpatient Medications Medication Sig dulaglutide (TRULICITY) 1.5 mg/0.5 mL pen injector Inject 1.5 mg subcutaneously one time a week. start 1 week after last 0.75 mg dose omeprazole (PRILOSEC) 40 mg capsule Take 1 capsule by mouth once daily. lisinopril (ZESTRIL, PRINIVIL) 5 mg tablet Take 1 tablet by mouth once daily. Take with 10 mg lisinopril once daily lisinopril (ZESTRIL, PRINIVIL) 10 mg tablet Take 1 tablet by mouth once daily. Take with 5 mg lisinopril once daily gabapentin (NEURONTIN) 300 mg capsule Take 1 capsule by mouth twice daily. levalbuterol tartrate HFA 45 mcg/actuation inhaler Inhale 1-2 Puffs as instructed every 6 hours as needed for wheezing/shortness of breath. MAGNESIUM CARBONATE ORAL Take 1 tablet by mouth. CPAP Initiate Auto PAP @ 5-20 cm of water with humidification. Mask (per patient preference) optional chin strap (if indicated) , filters, tubing, humidifier and lifetime supplies. DULoxetine (CYMBALTA) 60 mg capsule Take 1 capsule by mouth every morning. DULoxetine (CYMBALTA) 30 mg capsule Take 1 capsule by mouth daily at bedtime. risperiDONE (RISPERDAL) 3 mg tablet Take 1 tablet by mouth twice daily. triamcinolone (KENALOG) 0.025 % cream Apply 1 application to affected area twice daily. (Patient taking differently: Apply 1 application to affected area twice daily. Uses as needed) cloNIDine HCl (CATAPRES) 0.1 mg tablet Takes 1 to 2 pills daily as needed. (per Mother) For anger divalproex ER 500 mg 24 hr tablet Take 1,000 mg by mouth twice daily. Current Facility-Administered Medications Medication Dose Route Frequency perflutren lipid microspheres 1.3 mL in NaCl (PF) 0.9% 10 mL injection (DEFINITY) INTRAVENOUS DIRECTED PRN sodium chloride 0.9 % (flush) 10 mL (BD POSIFLUSH) 10 mL INTRAVENOUS DIRECTED PRN ALLERGIES: ALLERGIES Allergen Reactions Seasonal Allergies Other: See Comments VITALS: BP 132/84 Pulse 112 Temp 36.8 C (98.3 F) Resp 18 Wt (!) 166.9 kg (368 lb) SpO2 96% BMI 47.25 kg/m PHYSICAL EXAM: GEN: mildly ill appearing. Accompanied by his mother. HEENT: PERRL, EOMI, conjunctiva clear Ears: canals edematou. TMs without erythema, bulge, or effusion Sinuses: non-tender frontal sinus, non-tender maxillary sinuses Neck: supple, no thyromegaly, no lymphadenopathy HEART: regular rate and rhythm, no murmurs LUNGS: clear to auscultation, no wheezes or crackles, no increased WOB ASSESSMENT/PLAN: 1. URI, acute - ICD9: 465.9, ICD10: J06.9 (primary diagnosis) 2. Exposure to confirmed case of COVID-19 - ICD9: V01.79, ICD10: Z20.822 - viral URI, suspected COVID-19. - Discussed supportive care treatment with home isolation, rest, cold medicine, and analgesia. - Red flags to seek further treatment include chest pain, shortness of breath, and lethargy; in the ER if severe. - 2019 CORONAVIRUS He will be beyond the window for antiviral treatment. He may return to work with 5 more days of masking. Sreekanth Ackerman MD documented in this encounter [facility] 11-04-2022 History of Presen t illness Narrative This note was created using [employer]. Subjective Niko Brooke is a 32 year old male. Patient presents with: Established Patient: Follow up SUBJECTIVE: Niko Brooke is a 32 year old year old here today for follow up appointment for review of medical conditions. Dr. Carlyle Sosa took wax out of left ear easily. Now hears better Reflux times resolved with taking 40 mg omeprazole routinely. Epigastric and substernal pain. Watching what he eats more. Trulicity helping. PAST MEDICAL HISTORY Diagnosis Date Asthma 03/05/2010 ATTN DEFICIT NONHYPERACT 04/18/2006 Congenital pes planus 09/27/2010 DEPRESSIVE DISORDER NEC 04/18/2006 Encopresis 12/15/2014 Enuresis 12/15/2014 Excessive anger 07/14/2012 followed by psychiatry Family history of colon cancer Maternal Grandmother was 33years old when diagnosed and from colon cancer (will need colonoscopy at 28years old for screeening) Mental retardation, moderate (I.Q. 35-49) 10/12/2007 Obesity 12/15/2014 S/P lumbar laminectomy 09/2019 Dr. Weinstein Spinal stenosis of lumbar region with neurogenic claudication 05/10/2019 Current Outpatient Medications Medication Sig dulaglutide (TRULICITY) 0.75 mg/0.5 mL pen injector Inject 0.75 mg subcutaneously one time a week. for 4 weeks. omeprazole (PRILOSEC) 40 mg capsule Take 1 capsule by mouth once daily. lisinopril (ZESTRIL, PRINIVIL) 5 mg tablet Take 1 tablet by mouth once daily. Take with 10 mg lisinopril once daily lisinopril (ZESTRIL, PRINIVIL) 10 mg tablet Take 1 tablet by mouth once daily. Take with 5 mg lisinopril once daily gabapentin (NEURONTIN) 300 mg capsule Take 1 capsule by mouth twice daily. levalbuterol tartrate HFA 45 mcg/actuation inhaler Inhale 1-2 Puffs as instructed every 6 hours as needed for wheezing/shortness of breath. MAGNESIUM CARBONATE ORAL Take 1 tablet by mouth. CPAP Initiate Auto PAP @ 5-20 cm of water with humidification. Mask (per patient preference) optional chin strap (if indicated) , filters, tubing, humidifier and lifetime supplies. DULoxetine (CYMBALTA) 60 mg capsule Take 1 capsule by mouth every morning. risperiDONE (RISPERDAL) 3 mg tablet Take 1 tablet by mouth twice daily. triamcinolone (KENALOG) 0.025 % cream Apply 1 application to affected area twice daily. (Patient taking differently: Apply 1 application to affected area twice daily. Uses as needed) cloNIDine HCl (CATAPRES) 0.1 mg tablet Takes 1 to 2 pills daily as needed. (per Mother) For anger divalproex ER 500 mg 24 hr tablet Take 1,000 mg by mouth twice daily. dulaglutide (TRULICITY) 1.5 mg/0.5 mL pen injector Inject 1.5 mg subcutaneously one time a week. start 1 week after last 0.75 mg dose (Patient not taking: Reported on 11/04/2022) DULoxetine (CYMBALTA) 30 mg capsule Take 1 capsule by mouth daily at bedtime. Current Facility-Administered Medications Medication Dose Route Frequency perflutren lipid microspheres 1.3 mL in NaCl (PF) 0.9% 10 mL injection (DEFINITY) INTRAVENOUS DIRECTED PRN sodium chloride 0.9 % (flush) 10 mL (BD POSIFLUSH) 10 mL INTRAVENOUS DIRECTED PRN Review of Systems Objective BP 134/82 Pulse 79 Temp 36.6 C (97.8 F) Resp 18 Wt (!) 167.8 kg (370 lb) SpO2 96% BMI 47.51 kg/m Last 5 Encounter Wt Readings: Date: Wt: 11/04/2022 167.8 kg (370 lb) 10/03/2022 171.9 kg (379 lb) 09/26/2022 171.9 kg (379 lb) 09/17/2022 172.1 kg (379 lb 6.4 oz) 07/22/2022 175.1 kg (386 lb) No waist measurement recorded Estimated body mass index is 47.51 kg/m as calculated from the following: Height as of 02/05/22: 188 cm (6' 2"). Weight as of this encounter: 167.8 kg (370 lb). Last 5 Encounter BP Readings: Date: BP: 11/04/2022 134/82 09/26/2022 120/80 09/17/2022 146/88 07/22/2022 124/88 05/13/2022 112/72 Physical Exam Vitals reviewed. Constitutional: Appearance: Normal appearance. He is obese. Eyes: Conjunctiva/sclera: Conjunctivae normal. Cardiovascular: Rate and Rhythm: Normal rate and regular rhythm. Heart sounds: Normal heart sounds. Pulmonary: Effort: Pulmonary effort is normal. Breath sounds: Normal breath sounds. Musculoskeletal: Right lower leg: Edema (trace pretbial) present. Skin: General: Skin is warm and dry. Neurological: General: No focal deficit present. Mental Status: He is alert and oriented to person, place, and time. Psychiatric: Mood and Affect: Mood normal. Behavior: Behavior normal. Thought Content: Thought content normal. Judgment: Judgment normal. Assessment and Plan Encounter Diagnosis ICD-10-CM 1. Primary hypertension I10 dulaglutide (TRULICITY) 1.5 mg/0.5 mL pen injector COMP METABOLIC PANEL LIPID PANEL BASIC 2. Class 3 severe obesity without serious comorbidity with body mass index (BMI) of 45.0 to 49.9 in adult, unspecified obesity type (HCC) E66.01 dulaglutide (TRULICITY) 1.5 mg/0.5 mL pen injector Z68.42 3. DWIGHT (obstructive sleep apnea) G47.33 4. Prediabetes R73.03 dulaglutide (TRULICITY) 1.5 mg/0.5 mL pen injector HGB A1C COMP METABOLIC PANEL LIPID PANEL BASIC 5. Encounter for immunization Z23 PNEUMOCOCCAL VACCINE (PREVNAR 20) 6. IFG (impaired fasting glucose) R73.01 HGB A1C LIPID PANEL BASIC Above issues addressed with patient. Patient involved in shared decision making for management of medical issues. History and medications reviewed. Epic updated as needed Refills and/or prescriptions taken care of and meds adjusted as indicated after reviewed history, exam and labs. Health Maintenance reviewed. Updated record and/or ordered tests as recorded. Encouraged on efforts at healthy diet and regular exercise and adequate sleep. Hector Currie MD documented in this encounter [facility] 10-03-2022 Instructions Carmelita Thomas APRN.RETAIL SALES MERCHANDISER - 10/03/2022 1:21 PM EST Mutually Agreed Upon Goals Eating Plan: - Lose it BETHANY - Log intake 1-2 days per week. - Consider protein supplement for snack. - Applesauce is good. - Consider tuna or chicken salad wrap for lunch - Consider smoothies with added vegetables and fruit. To schedule with bariatric nutrition call [phone]. Also schedule 2 month follow up with me. Activity: Create a habit of physical activity 3 days per week. Consider chair exercise on YouTube. Sleep: Continue using using CPAP. - Begin a meal replacement program: What are meal replacements? Meal replacements are portion controlled products that are fortified with vitamins and minerals. Examples include liquid shakes, protein bars and frozen meals. You should replace 1-2 meals per day with a meal replacement and then have 1-2 balanced nutritious meals per day that incorporate lean protein, healthy starch, and fruits/vegetables. You can pair your meal replacement with fruit or vegetables to make them more satiating. Frozen Meals aim for 200-400 calories, 15-30 grams protein, 5+ grams fiber, < 50 grams Carbohydrate, <600 mg sodium Frozen Meals Calories Protein (grams) Carbs Frontera Bowls 240-320 9-23 33-47 Healthy Choice/Power Bowls 180-350 10-25 20-50 Alannah's (V, GF) 280-400 9-20 20-50 Smart Made/Smart Ones 150-320 14-26 16-50 Lean Cuisine 250-410 10-20 15-50 Eating Well 240-360 15-25 25-40 LUVO planted 260-430 10-20 16-55 Other Frozen meals: Kashi, Sweet Earth, Microbial Specialist Lj's Reduced Guilt, Sumanth PALMA's Delights, Dr. Can's Protein Drinks Calories Protein (grams) Sugars (grams) EAS Advant Edge Carb Control 110 17 1 Isopure Clear Zero Carb 160 40 0 Muscle Milk light 100-160 15-20 0-1 My Own Crown Core Power 170 26 5 Orgain Protein Shake* 150 26 2 Premier Protein 160 30 1 Evolve (Vegan)* 160 20 5 Other Protein Shakes: Pure Protein, Ensure High Protein; *Offers plant based, dairy free option Protein Powders Calories (per scoop) Protein (g) Sugars (g) Isopure Zero Carb & Unflavored 105 25 0 Insulation Cupola Charger Whey Protein 100 18 3 Optimum Nutrition 100% whey 120-130 24 1-2 EAS 100% Whey or Soy 120 23 1 Genisoy Protein powder* 110 25 0 Quest 100 23 1 Ball One Protein powder* 130 25 1 Orgain Protein Powder* 150-160 21 0-1 *Offers plant based, dairy free option Protein Bars Calories Protein (g) Sugars (g) Quest (GF) 190 20 0-1 Power Crunch 140-240 13-20 0-5 NuGo Slim (v) 180 17 1 Simply protein 150 15 1 Orgain Bar 140 10 4 Pure Protein 200 20 2 Think Thin (GF) 230 20 0-1 Nolberto Bakery Paleo (GF) 180-190 20 2 Oh Yeah (one) (GF) 180-200 20 1 Oatmega 190 14 5 Other Protein bars: RX bar, Orgain, Fit Callie, Protein One, Schmidt protein bar; *GF= Gluten-Free; V= vegan documented in this encounter [facility] 10-03-2022 History of Presen t illness Narrative BMI Obesity Medicine Consult Distance Health Visit 10/03/22 Virtual Visit (Audio/Visual)"I have discussed the nature of this visit with the patient which will occur via [facility] (Phone, Virtual Visit) and he agrees to proceed with this interaction". Patient Summary: Niko Brooke is a 32 year old male with obesity who presents to the [facility] [place] for an initial evaluation of his obesity and is interested in behavioral and pharmacological weight loss approaches. Primary reason for wanting obesity treatment : to be healthier Overall goal: 200 lbs Weight History: He reports a strong family history of obesity and childhood onset weight gain. He states his weight gain is related to the following factors, including medications, inactive, food choices. Weight Graph: (please see graph scanned in chart) Obesigenic Medications: YES - Risperidone and Depakote. Diet: Quality of diet: 24hr recall suggests unhealthy diet. Breakfast: eggs or cereal Lunch: canned spaghetti and yogurt and sugar free gatorade Dinner: hamburgers, norwegian fries. - He will not eat vegetables because he does not like them Snacks: cereal with skim milk, PB&J, candy Drinks: diet soda (1 per day), sugar free gatorade, water, favored water. ETOH: none Characterization of diet:unhealthy snacking and evening snacking. 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 self-directed, exercise program, and dietitian. Anti-Obesity Medications >Phentermine: No uncontrolled HTN, No CVD Hx or hx of seizure disorder. No MAOI inhibitor use. No drug abuse hx. Crcl > 15. - Hx of excessive anger, can cause one to be short tempered. >Topiramate/zonisamide: No seizure or kidney stone hx. - hx of migraines, - hx of poor sleep. - Child bearing age. >Qsymia: see above >Contrave: No contraindications. Could affect mood. No uncontrolled HTN or hx of seizure disorder (lowers threshold for seizures). No MAOI inhibitor use. No opiate use. - Currently taking duloxetine, risperidone - Divalproex for mood >Saxenda/Wegovy/Ozempic: Cost. Ins coverage? Possibly Dulaglutide. Pt reports no personal or family hx of medullary thyroid carcinoma or personal hx of pancreatitis? >Metformin: No contraindications or medication interactions. eGFR > 30. Exercise: Regular exercise: No Strength/resistance exercise:No Barriers to regular exercise? cost Work-related activity:somewhat active. ?Sleep: Duration: 8 hours. DWIGHT YES ; CPAP YES Quality:adequate, Generally restful. ??Stress: Some to marked, Cause:Personal Obesity Related Comorbidities: Prior Weight Loss Surgery:No ACTIVE PROBLEM LIST Reactive Depression Attention Deficit Disorder Moderate Intellectual Disability With Intelligence Quotient 35 to 49 Mild Intermittent Asthma Congenital Pes Planus Excessive Anger Class 3 Severe Obesity With Body Mass Index (Bmi) of 45.0 to 49.9 in Adult (Hcc) Encopresis Enuresis Hereditary and Idiopathic Peripheral Neuropathy Plantar Fascial Fibromatosis Abnormal Gait Dwight (Obstructive Sleep Apnea) Spinal Stenosis of Lumbar Region With Neurogenic Claudication S/P Lumbar Laminectomy Primary Hypertension Gerd (Gastroesophageal Reflux Disease) Prediabetes Family History of Colon Cancer Colon Cancer Screening No history of OH, COPD, peptic ulcer dx, gallstones, hypothyroidism, cancer, DVT, PE, CVA, T2DM, gout, kidney stones, CKD and smoking history. PAST SURGICAL HISTORY Procedure Laterality Date CIRCUMCISION LAMINECTOMY,LUMBAR 09/2019 L3,4,5 Dr. Weinstein TONSILLECTOMY & ADENOIDECTOMY <AGE 14 Obesity ROS/ FHx GEN: Fatigue:yes CV: h/o palpitations/cardiac arrhythmia, CP:No PULM: Asthma:yes GI: GERD:yes; Gallstones: No; Fatty liver disease:elevated liver enzymes; H/o hernia:No MSK: Joint Pain:yes : Nephrolithiasis:No; Stress incontinence:No Symptoms of PCOS(women):n/a No history of thyroid disorder,diabetes,cold intolerance,heat,intolerance,kai ydypsia + prediabetes NEURO: Migraines/OLIVEIRA:No; H/o seizures: No Glaucoma:No; Cataracts No Symptoms of pseudotumor cerebri:No Family History Problem Relation Age of Onset Colon Polyps Mother large polyp other (Hypothyroidism [Other]) Mother Colon Cancer Father 50's Diabetes Father Hypertension Father Cancer Father Colon Colon Polyps Brother Colon Cancer Maternal Grandmother 34 Cancer Maternal Grandmother from breast and uterine cancer Diabetes Maternal Grandfather Colon Cancer Paternal Grandfather late 60's Cancer Paternal Grandfather from Colon Cancer PREV: PAP n/a, Mammogram n/a and Colonoscopy n/a Social History Social History Tobacco Use Smoking status: Never Smokeless tobacco: Never Vaping Use Vaping Use: Never used Substance Use Topics Alcohol use: Never Drug use: Never Occupation: [employer]. General appearance: NAD Mental status: awake and alert Pulm: not visibly SOB Neuro: speech fluent Results: reviewed with the patient Results Only on 07/22/2022 Component Date Value Ref Range Status TSH 07/22/2022 1.750 0.270 - 4.200 mIU/L Final Appointment on 07/22/2022 Component Date Value Ref Range Status Hemoglobin A1C 07/22/2022 6.3 (A) 4.3 - 5.6 % Final Estimated Average Glucose 07/22/2022 134 mg/dL Final Protein, Total 07/22/2022 6.6 6.3 - 8.0 g/dL Final Albumin 07/22/2022 4.3 3.9 - 4.9 g/dL Final Calcium, Total 07/22/2022 9.3 8.5 - 10.2 mg/dL Final Bilirubin, Total 07/22/2022 0.3 0.2 - 1.3 mg/dL Final Alkaline Phosphatase 07/22/2022 64 38 - 113 U/L Final AST 07/22/2022 46 (A) 14 - 40 U/L Final ALT 07/22/2022 59 (A) 10 - 54 U/L Final Glucose 07/22/2022 147 (A) 74 - 99 mg/dL Final BUN 07/22/2022 9 9 - 24 mg/dL Final Creatinine 07/22/2022 0.53 (A) 0.73 - 1.22 mg/dL Final Sodium 07/22/2022 139 136 - 144 mmol/L Final Potassium 07/22/2022 4.6 3.7 - 5.1 mmol/L Final Chloride 07/22/2022 99 97 - 105 mmol/L Final CO2 07/22/2022 27 22 - 30 mmol/L Final Anion Gap 07/22/2022 13 9 - 18 mmol/L Final Estimated Glomerular Filtration Ra* 07/22/2022 138 >=60 mL/min/1.73m Final WBC 07/22/2022 8.41 3.70 - 11.00 k/uL Final RBC 07/22/2022 5.02 4.20 - 6.00 m/uL Final Hemoglobin 07/22/2022 14.4 13.0 - 17.0 g/dL Final Hematocrit 07/22/2022 43.2 39.0 - 51.0 % Final MCV 07/22/2022 86.1 80.0 - 100.0 fL Final MCH 07/22/2022 28.7 26.0 - 34.0 pg Final MCHC 07/22/2022 33.3 30.5 - 36.0 g/dL Final RDW-CV 07/22/2022 12.0 11.5 - 15.0 % Final Platelet Count 07/22/2022 202 150 - 400 k/uL Final MPV 07/22/2022 11.1 9.0 - 12.7 fL Final Absolute nRBC 07/22/2022 <0.01 <0.01 k/uL Final Cholesterol, Total 07/22/2022 213 (A) <200 mg/dL Final Triglyceride 07/22/2022 185 (A) <150 mg/dL Final HDL Cholesterol 07/22/2022 30 (A) >39 mg/dL Final Non HDL Cholesterol 07/22/2022 183 (A) <130 mg/dL Final Fasting Time 07/22/2022 10 hrs Final VLDL Cholesterol 07/22/2022 37 (A) <30 mg/dL Final TC:HDL Ratio 07/22/2022 7.10 (A) <5.10 Final LDL Cholesterol 07/22/2022 146 (A) <100 mg/dL Final LDL:HDL Ratio 07/22/2022 4.87 (A) <2.54 Final Impression: Niko Brooke is a 32 year old male with Class III obesity (Body mass index is 48.66 kg/m .) who has childhood onset obesity with gradual weight gain. Presents with mom via virtual visit. The causes of his obesity are multifactorial, biological, psychological and social and environmental. Specific factors include a genetic component related to a strong family of obesity, exposure to weight gain promoting medication(s) , increased consumption of high calorie/process foods, suboptimal physical activity, and dislike of fruits and vegetables. He has several weight-related medical comorbidities which increase his cardiovascular mortality risk. There are additional metabolic obesity complications including pre-diabetes, dyslipidemia, hypertension, and obstructive sleep apnea. Other medical conditions as above. Regarding his lifestyle, as above, he has numerous behavioral contributors; his physical activity is non-existent. Overall, it is clear that his quality of life is severely compromised by his weight. It is likely a combination of weight loss therapies will be needed. He appears motivated today. Plan: -- Based on the severity and resistance of the obesity to more conservative weight loss approaches, I believe a combination of behavioral and pharmacological intervention is the best and most appropriate senior living therapeutic option. -- We discussed several strategies to track food intake and increase mindfulness around eating. He was counseled on Food records and snack replacements and adding more fruits/vegetables. Also recommended establishing with bariatric health services rn. -- Encouraged the patient to improve his physical activity. Although cardiovascular exercise is most beneficial for weight loss initially, we discussed healthy muscle from a combination of resistance training and cardiovascular exercise is the best 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 plan. An overall goal of 200 minutes per week of exercise has been effective in weight loss and maintenance. -- Recommended trial of dulaglutide for appetite suppression. Discussed common s/e and medication administration with mom and pt. Provided drug information via [employer] message and recommended watching the "How to use pen" video. Start Dulaglutide (Trulicity) 0.75 mg weekly inj x 4 weeks then increase to 1.5 mg weekly inj. -- follow-up visit for management of above interventions 2 months. Mutually Agreed Upon Goals Eating Plan: - Lose it BETHANY - Log intake 1-2 days per week. - Consider protein supplement for snack. - Applesauce is good. - Consider tuna or chicken salad wrap for lunch. - Consider smoothies with added vegetables and fruit. To schedule with bariatric nutrition call [phone]. Also schedule 2 month follow up with me. Activity: Create a habit of physical activity 3 days per week. Consider chair exercise on YouTube. Sleep: Continue using using CPAP. I spent a total of 47 minutes on the date of the service which included preparing to see the patient, [id number] patient care, completing clinical documentation, obtaining and/or reviewing separately obtained history, performing a medically appropriate examination, counseling and educating the patient/family/caregiver, and ordering medications, tests, or procedures. Carmelita Thomas APRN.[employer]CH[employer]ISER documented in this encounter [facility] 09-26-2022 History of Presen t illness Narrative . Subjective HPI Niko Brooke is a 32 year old male. PMH significant for ACTIVE PROBLEM LIST Reactive Depression Attention Deficit Disorder Moderate Intellectual Disability With Intelligence Quotient 35 to 49 Mild Intermittent Asthma Congenital Pes Planus Excessive Anger Class 3 Severe Obesity With Body Mass Index (Bmi) of 45.0 to 49.9 in Adult (Hcc) Encopresis Enuresis Hereditary and Idiopathic Peripheral Neuropathy Plantar Fascial Fibromatosis Abnormal Gait Dwight (Obstructive Sleep Apnea) Spinal Stenosis of Lumbar Region With Neurogenic Claudication S/P Lumbar Laminectomy Primary Hypertension Gerd (Gastroesophageal Reflux Disease) Prediabetes Family History of Colon Cancer Colon Cancer Screening Presents with mother for visit. Notes decreased hearing left more than right. Ear fullness, no pain. Review of Systems Constitutional: Negative. HENT: Positive for hearing loss. Respiratory: Negative. Cardiovascular: Negative. Endocrine: Negative. Musculoskeletal: Positive for arthralgias and back pain. Objective BP 120/80 Pulse 102 Resp 16 Wt (!) 171.9 kg (379 lb) SpO2 96% BMI 48.66 kg/m Physical Exam Vitals and nursing note reviewed. Constitutional: General: He is not in acute distress. Appearance: Normal appearance. He is well-developed. He is obese. He is not ill-appearing, toxic-appearing or diaphoretic. HENT: Head: Normocephalic and atraumatic. Left Ear: There is impacted cerumen. Ears: Comments: cerumen present right ear, not obstructing Eyes: General: No scleral icterus. Right eye: No discharge. Left eye: No discharge. Conjunctiva/sclera: Conjunctivae normal. Cardiovascular: Rate and Rhythm: Normal rate and regular rhythm. Pulmonary: Effort: Pulmonary effort is normal. Breath sounds: Normal breath sounds. Abdominal: General: Bowel sounds are normal. Palpations: Abdomen is soft. Musculoskeletal: Left knee: Tenderness present over the patellar tendon. Skin: General: Skin is warm and dry. Neurological: Mental Status: He is alert and oriented to person, place, and time. Mental status is at baseline. ALLERGIES Allergen Reactions Seasonal Allergies Other: See Comments Current Outpatient Medications Medication Sig omeprazole (PRILOSEC) 40 mg capsule Take 1 capsule by mouth once daily. lisinopril (ZESTRIL, PRINIVIL) 5 mg tablet Take 1 tablet by mouth once daily. Take with 10 mg lisinopril once daily lisinopril (ZESTRIL, PRINIVIL) 10 mg tablet Take 1 tablet by mouth once daily. Take with 5 mg lisinopril once daily gabapentin (NEURONTIN) 300 mg capsule Take 1 capsule by mouth twice daily. levalbuterol tartrate HFA 45 mcg/actuation inhaler Inhale 1-2 Puffs as instructed every 6 hours as needed for wheezing/shortness of breath. MAGNESIUM CARBONATE ORAL Take 1 tablet by mouth. CPAP Initiate Auto PAP @ 5-20 cm of water with humidification. Mask (per patient preference) optional chin strap (if indicated) , filters, tubing, humidifier and lifetime supplies. DULoxetine (CYMBALTA) 60 mg capsule Take 1 capsule by mouth every morning. DULoxetine (CYMBALTA) 30 mg capsule Take 1 capsule by mouth daily at bedtime. risperiDONE (RISPERDAL) 3 mg tablet Take 1 tablet by mouth twice daily. triamcinolone (KENALOG) 0.025 % cream Apply 1 application to affected area twice daily. (Patient taking differently: Apply 1 application to affected area twice daily. Uses as needed) cloNIDine HCl (CATAPRES) 0.1 mg tablet Takes 1 to 2 pills daily as needed. (per Mother) For anger divalproex ER 500 mg 24 hr tablet Take 1,000 mg by mouth twice daily. Current Facility-Administered Medications Medication Dose Route Frequency perflutren lipid microspheres 1.3 mL in NaCl (PF) 0.9% 10 mL injection (DEFINITY) INTRAVENOUS DIRECTED PRN sodium chloride 0.9 % (flush) 10 mL (BD POSIFLUSH) 10 mL INTRAVENOUS DIRECTED PRN PAST MEDICAL HISTORY Diagnosis Date Asthma 03/05/2010 ATTN DEFICIT NONHYPERACT 04/18/2006 Congenital pes planus 09/27/2010 DEPRESSIVE DISORDER NEC 04/18/2006 Encopresis 12/15/2014 Enuresis 12/15/2014 Excessive anger 07/14/2012 followed by psychiatry Family history of colon cancer Maternal Grandmother was 33years old when diagnosed and from colon cancer (will need colonoscopy at 28years old for screeening) Mental retardation, moderate (I.Q. 35-49) 10/12/2007 Obesity 12/15/2014 S/P lumbar laminectomy 09/2019 Dr. Weinstein Spinal stenosis of lumbar region with neurogenic claudication 05/10/2019 Social History Tobacco Use Smoking status: Never Smokeless tobacco: Never Vaping Use Vaping Use: Never used Substance Use Topics Alcohol use: Never Drug use: Never Component Latest Ref Rng & Units 09/09/2021 12/07/2021 04/23/2022 04/25/2022 WBC 3.70 - 11.00 k/uL 7.62 RBC 4.20 - 6.00 m/uL 4.69 Hemoglobin 13.0 - 17.0 g/dL 13.4 Hematocrit 39.0 - 51.0 % 40.2 MCV 80.0 - 100.0 fL 85.7 MCH 26.0 - 34.0 pg 28.6 MCHC 30.5 - 36.0 g/dL 33.3 RDW-CV 11.5 - 15.0 % 12.1 Platelet Count 150 - 400 k/uL 174 MPV 9.0 - 12.7 fL 10.6 NRBC /100 WBC 0.0 Absolute nRBC <0.01 k/uL <0.01 Neut% % 65.0 Abs Neut (ANC) 1.45 - 7.50 k/uL 4.95 Lymph% % 26.0 Abs Lymph 1.00 - 4.00 k/uL 1.98 Hudspeth% % 6.0 Abs Hudspeth <0.87 k/uL 0.46 Eosin% % 0.0 Abs Eosin <0.46 k/uL 0.00 Baso% % 1.0 Abs Baso <0.11 k/uL 0.08 Myelo% % 2.0 Left Shift Present Platelet Estimate Adequate Red Cell Morph Reviewed: unremarkable DTYPE Manual Protein, Total 6.3 - 8.0 g/dL 6.6 6.7 6.4 Albumin 3.9 - 4.9 g/dL 4.4 4.1 4.2 Calcium 8.5 - 10.2 mg/dL 9.8 9.2 9.0 Bilirubin, Total 0.2 - 1.3 mg/dL 0.2 0.3 0.3 Alkaline Phosphatase 38 - 113 U/L 85 68 67 AST 14 - 40 U/L 82 (H) 81 (H) 49 (H) Glucose 74 - 99 mg/dL 140 (H) 113 (H) 183 (H) BUN 9 - 24 mg/dL 10 8 (L) 11 Creatinine 0.73 - 1.22 mg/dL 0.56 (L) 0.48 (L) 0.54 (L) Sodium 136 - 144 mmol/L 135 (L) 140 138 Potassium 3.7 - 5.1 mmol/L 4.5 4.3 4.4 Chloride 97 - 105 mmol/L 97 100 99 CO2 22 - 30 mmol/L 24 28 27 Anion Gap 9 - 18 mmol/L 14 12 12 ALT 10 - 54 U/L 74 (H) 84 (H) 50 eGFR- >60 eGFR-All Other Races . >60 eGFR >=60 mL/min/1.73m 143 138 Hemoglobin A1C 4.3 - 5.6 % 6.5 (H) 6.4 (H) Estimated Average Glucose mg/dL 140 137 Valproic Acid 50.0 - 100.0 ug/mL Unable to assay. No specimen received. 82.8 NT Pro BNP <125 pg/mL <50 ASSESSMENT/PLAN: 1. Excessive cerumen in ear canal, right - ICD9: 380.4, ICD10: H61.21 (primary diagnosis) 2. Impacted cerumen of left ear - ICD9: 380.4, ICD10: H61.22 Debrox x 5 days, follow package directions, one week follow up irrigation Refer to ENT if needed Sarah Herrmann APRN.CNS Medical Decision Making: Medical Decision Making Level: 1 - N/A documented in this encounter [facility] 09-17-2022 Instructions Liudmila Breaux APRN.CNP - 09/17/2022 3:55 PM EST lifestyle modifications including losing weight, limiting caffeine, no meals three hours before sleep, and head of bed elevation. Try to limit things like red sauce and foods that are spicy. documented in this encounter [facility] 09-17-2022 History of Presen t illness Narrative Images from the original note were not included. SUBJECTIVE Niko Brooke is a 32 year old male here today for an ER follow up. Chief Complaint Patient presents with: ER F/U: Chest pain- [facility] 09/16/2022 HPI Niko Brooke is a 32 year old male established patient of Dr. Currie who presents today for ER follow up. He was seen in the ER at [facility] on 09/16/2022. Presents to ER for concerns of chest pains. Had been laying down ready to go to sleep when they started. ER records are available and reviewed with the visit today. Work up included EKG which was unremarkable, normal chest xray. GI cocktail resolved his symptoms. He has a history significant for GERD. On PPI therapy. His chest pain which he points to (points t upper abdomen) has started back up again today. Started this morning, woke up with it. Before this his GERD had been controlled. He likes to drink diet pop. Likes to eat lasagna. Ate lasagna last night, he thought this was really spicy. Also ate spaghetti today. Trying to work on weight loss. His medications were reviewed today and his list is now up to date. Medications Current Outpatient Medications Medication Sig lisinopril (ZESTRIL, PRINIVIL) 5 mg tablet Take 1 tablet by mouth once daily. Take with 10 mg lisinopril once daily lisinopril (ZESTRIL, PRINIVIL) 10 mg tablet Take 1 tablet by mouth once daily. Take with 5 mg lisinopril once daily gabapentin (NEURONTIN) 300 mg capsule Take 1 capsule by mouth twice daily. levalbuterol tartrate HFA 45 mcg/actuation inhaler Inhale 1-2 Puffs as instructed every 6 hours as needed for wheezing/shortness of breath. MAGNESIUM CARBONATE ORAL Take 1 tablet by mouth. CPAP Initiate Auto PAP @ 5-20 cm of water with humidification. Mask (per patient preference) optional chin strap (if indicated) , filters, tubing, humidifier and lifetime supplies. DULoxetine (CYMBALTA) 60 mg capsule Take 1 capsule by mouth every morning. DULoxetine (CYMBALTA) 30 mg capsule Take 1 capsule by mouth daily at bedtime. risperiDONE (RISPERDAL) 3 mg tablet Take 1 tablet by mouth twice daily. triamcinolone (KENALOG) 0.025 % cream Apply 1 application to affected area twice daily. (Patient taking differently: Apply 1 application to affected area twice daily. Uses as needed) cloNIDine HCl (CATAPRES) 0.1 mg tablet Takes 1 to 2 pills daily as needed. (per Mother) For anger divalproex ER 500 mg 24 hr tablet Take 1,000 mg by mouth twice daily. omeprazole (PRILOSEC) 40 mg capsule Take 1 capsule by mouth once daily. Current Facility-Administered Medications Medication Dose Route Frequency perflutren lipid microspheres 1.3 mL in NaCl (PF) 0.9% 10 mL injection (DEFINITY) INTRAVENOUS DIRECTED PRN sodium chloride 0.9 % (flush) 10 mL (BD POSIFLUSH) 10 mL INTRAVENOUS DIRECTED PRN ALLERGIES Allergen Reactions Seasonal Allergies Other: See Comments ACTIVE PROBLEM LIST Gerd (Gastroesophageal Reflux Disease) - 02/05/2022 Prediabetes - 02/05/2022 Family History of Colon Cancer - 02/05/2022 Colon Cancer Screening - 02/05/2022 Primary Hypertension - 05/15/2020 S/P Lumbar Laminectomy - 09/24/2019 Comment: Dr. Weinstein Spinal Stenosis of Lumbar Region With Neurogenic Claudication - 05/10/2019 Dwight (Obstructive Sleep Apnea) - 06/22/2018 Plantar Fascial Fibromatosis - 06/30/2017 Abnormal Gait - 06/30/2017 Hereditary and Idiopathic Peripheral Neuropathy - 10/27/2016 Class 3 Severe Obesity With Body Mass Index (Bmi) of 45.0 to 49.9 in Adult (Hcc) - 12/15/2014 Encopresis - 12/15/2014 Enuresis - 12/15/2014 Excessive Anger - 07/14/2012 Congenital Pes Planus - 09/27/2010 Mild Intermittent Asthma - 03/05/2010 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 Reactive Depression - 04/18/2006 Attention Deficit Disorder - 04/18/2006 Social History Tobacco Use Smoking status: Never Smokeless tobacco: Never Vaping Use Vaping Use: Never used Substance Use Topics Alcohol use: Never Drug use: Never Review of Systems Respiratory: Negative. Cardiovascular: Positive for chest pain. Negative for palpitations and leg swelling. Gastrointestinal: Positive for abdominal pain. OBJECTIVE BP 146/88 Pulse 119 Temp (Src) 98 (Left Tympanic) Resp 20 Wt 379 lb 6.4 oz (172.1kg) SpO2 97% Physical Exam Vitals and nursing note reviewed. Constitutional: General: He is awake. He is not in acute distress. Appearance: Normal appearance. He is well-developed and well-groomed. He is obese. He is not ill-appearing, toxic-appearing or diaphoretic. HENT: Head: Normocephalic. Right Ear: External ear normal. Left Ear: External ear normal. Nose: Nose normal. Eyes: General: Vision grossly intact. Conjunctiva/sclera: Conjunctivae normal. Pupils: Pupils are equal, round, and reactive to light. Neck: Vascular: No JVD. Trachea: Trachea normal. Cardiovascular: Rate and Rhythm: Normal rate and regular rhythm. Pulses: Normal pulses. Heart sounds: Normal heart sounds. No murmur heard. Pulmonary: Effort: Pulmonary effort is normal. No accessory muscle usage, prolonged expiration or respiratory distress. Breath sounds: Normal breath sounds. Abdominal: General: Bowel sounds are normal. Palpations: Abdomen is soft. Comments: When pointing to his chest pain he points to his epigastric region Musculoskeletal: Cervical back: Neck supple. Skin: General: Skin is warm and dry. Capillary Refill: Capillary refill takes less than 2 seconds. Neurological: General: No focal deficit present. Mental Status: He is alert and oriented to person, place, and time. Mental status is at baseline. Psychiatric: Attention and Perception: Attention and perception normal. Mood and Affect: Mood and affect normal. Speech: Speech normal. Behavior: Behavior normal. Behavior is cooperative. Thought Content: Thought content normal. Cognition and Memory: Cognition and memory normal. Judgment: Judgment normal. ASSESSMENT/PLAN: 1. Gastroesophageal reflux disease, unspecified whether esophagitis present - ICD9: 530.81, ICD10: K21.9 (primary diagnosis) - Discussed lifestyle modifications including losing weight, limiting caffeine, no meals three hours before sleep, and head of bed elevation - Continue treatment with omeprazole, increase dose to 40 mg daily If persistent issues then add H2 gilda by adding Pepcid - OMEPRAZOLE 40 MG CAPSULE,DELAYED RELEASE 2. Atypical chest pain - ICD9: 786.59, ICD10: R07.89 GERD associated pain. 3. Class 3 severe obesity due to excess calories with body mass index (BMI) of 45.0 to 49.9 in adult, unspecified whether serious comorbidity present (HCC) - ICD9: 278.01, V85.42, ICD10: E66.01, Z68.42 Working on weight loss. Portions of this note have been entered by ancillary staff. I have reviewed and when necessary edited, so that they are an adequate record of my encounter with this patient Please note that parts of this document were created using voice recognition software and therefore may contain grammatical errors. Patient verbalizes understanding of instructions from today's visit and in agreement with treatment plan. Questions answered. Agrees to call the office if questions, concerns of issues with acute symptoms not improving or if they worsen. Medical Decision Making: Data: Unique source(s) for external note(s) reviewed: 1 Unique test result(s) reviewed: 2 Risk: Moderate: Drug management Medical Decision Making Level: 4 - Moderate Return if symptoms worsen or fail to improve, for Keep next scheduled appointment.. Liudmila Breaux APRN-RADHA documented in this encounter [facility] 07-25-2022 Miscellaneous Notes Mother aware of results and recommendation. Copy of recommendations and lab results mailed to patient's home address. Hemoglobin A1c is consistent with prediabetes. Recommend portion control and avoiding sugar in your diet, limit portion sizes of bread potatoes rice and pasta and exercise as able daily such as walking to help keep this in control. These measures will also help with triglycerides which are elevated. TSH was within normal limits. CBC WNL. Will mail letter with information also. Component Latest Ref Rng & Units 04/23/2022 04/25/2022 07/22/2022 WBC 3.70 - 11.00 k/uL 7.62 8.41 RBC 4.20 - 6.00 m/uL 4.69 5.02 Hemoglobin 13.0 - 17.0 g/dL 13.4 14.4 Hematocrit 39.0 - 51.0 % 40.2 43.2 MCV 80.0 - 100.0 fL 85.7 86.1 MCH 26.0 - 34.0 pg 28.6 28.7 MCHC 30.5 - 36.0 g/dL 33.3 33.3 RDW-CV 11.5 - 15.0 % 12.1 12.0 Platelet Count 150 - 400 k/uL 174 202 MPV 9.0 - 12.7 fL 10.6 11.1 NRBC /100 WBC 0.0 Absolute nRBC <0.01 k/uL <0.01 <0.01 Neut% % 65.0 Abs Neut (ANC) 1.45 - 7.50 k/uL 4.95 Lymph% % 26.0 Abs Lymph 1.00 - 4.00 k/uL 1.98 Hudspeth% % 6.0 Abs Hudspeth <0.87 k/uL 0.46 Eosin% % 0.0 Abs Eosin <0.46 k/uL 0.00 Baso% % 1.0 Abs Baso <0.11 k/uL 0.08 Myelo% % 2.0 Left Shift Present Platelet Estimate Adequate Red Cell Morph Reviewed: unremarkable DTYPE Manual Protein, Total 6.3 - 8.0 g/dL 6.4 6.6 Albumin 3.9 - 4.9 g/dL 4.2 4.3 Calcium 8.5 - 10.2 mg/dL 9.0 9.3 Bilirubin, Total 0.2 - 1.3 mg/dL 0.3 0.3 Alkaline Phosphatase 38 - 113 U/L 67 64 AST 14 - 40 U/L 49 (H) 46 (H) ALT 10 - 54 U/L 50 59 (H) Glucose 74 - 99 mg/dL 183 (H) 147 (H) BUN 9 - 24 mg/dL 11 9 Creatinine 0.73 - 1.22 mg/dL 0.54 (L) 0.53 (L) Sodium 136 - 144 mmol/L 138 139 Potassium 3.7 - 5.1 mmol/L 4.4 4.6 Chloride 97 - 105 mmol/L 99 99 CO2 22 - 30 mmol/L 27 27 Anion Gap 9 - 18 mmol/L 12 13 eGFR >=60 mL/min/1.73m 138 138 Cholesterol, Total <200 mg/dL 213 (H) Triglyceride <150 mg/dL 185 (H) HDL Cholesterol >39 mg/dL 30 (L) Non HDL Cholesterol <130 mg/dL 183 (H) Fasting Time hrs 10 VLDL Cholesterol <30 mg/dL 37 (H) TC:HDL Ratio <5.10 7.10 (H) LDL Cholesterol <100 mg/dL 146 (H) LDL:HDL Ratio <2.54 4.87 (H) Hemoglobin A1C 4.3 - 5.6 % 6.4 (H) 6.3 (H) Estimated Average Glucose mg/dL 137 134 NT Pro BNP <125 pg/mL <50 TSH 0.270 - 4.200 mIU/L 1.750 documented in this encounter [facility] 07-22-2022 History of Presen t illness Narrative . Subjective HPI Niko Brooke is a 32 year old male. 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 Since the last visit, he has been in his usual state of health. Notes he has CPAP for about 1 month and has been trying to wear this daily. Seems like it helps when he does wear. Sees Dr Mary. Notes recent back injection worked well. Taking trmadol and gabapentin which are both working well also. Diet:SAD, Has had weight gain, attributed to psychiatric medications. Exercise: Active at work Weight: increased Notes right knee pain x 1 month. Intermittent, sharp with certain movements such a flexion or walking. No locking or giving way. No injury. Below knee cap. HTN: Without report of headache, chest pain, palpitations, dyspnea, peripheral edema, orthopnea, fatigue and PND. No adverse effects noted. Consistently taking. Last 14 Encounter BP Readings: Date: BP: 07/22/2022 124/88 05/13/2022 112/72 05/01/2022 132/80 04/23/2022 130/88 03/05/2022 118/71 03/05/2022 122/62 02/05/2022 140/82 12/03/2021 132/80 10/14/2021 134/82 08/05/2021 126/72 03/14/2021 130/80 01/18/2021 128/78 11/06/2020 128/86 02/22/2020 120/[address] Dasilva: Doing well, currently stable with treatment. Review of Systems Constitutional: Negative. HENT: Negative. Respiratory: Negative. Cardiovascular: Negative. Endocrine: Negative. Musculoskeletal: Positive for arthralgias and back pain. Objective BP 124/88 Pulse 84 Resp 26 Wt (!) 175.1 kg (386 lb) BMI 49.56 kg/m Physical Exam Vitals and nursing note reviewed. Constitutional: General: He is not in acute distress. Appearance: Normal appearance. He is well-developed. He is obese. He is not ill-appearing, toxic-appearing or diaphoretic. HENT: Head: Normocephalic and atraumatic. Eyes: General: No scleral icterus. Right eye: No discharge. Left eye: No discharge. Conjunctiva/sclera: Conjunctivae normal. Cardiovascular: Rate and Rhythm: Normal rate and regular rhythm. Pulmonary: Effort: Pulmonary effort is normal. Breath sounds: Normal breath sounds. Abdominal: General: Bowel sounds are normal. Palpations: Abdomen is soft. Musculoskeletal: Left knee: Tenderness present over the patellar tendon. Skin: General: Skin is warm and dry. Neurological: Mental Status: He is alert and oriented to person, place, and time. Mental status is at baseline. ALLERGIES Allergen Reactions Seasonal Allergies Other: See Comments Current Outpatient Medications Medication Sig MAGNESIUM CARBONATE ORAL Take 1 tablet by mouth. lisinopril (ZESTRIL, PRINIVIL) 10 mg tablet Take 1 tablet by mouth once daily. Take with 5 mg lisinopril once daily lisinopril (ZESTRIL, PRINIVIL) 5 mg tablet Take 1 tablet by mouth once daily. Take with 10 mg lisinopril once daily CPAP Initiate Auto PAP @ 5-20 cm of water with humidification. Mask (per patient preference) optional chin strap (if indicated) , filters, tubing, humidifier and lifetime supplies. DULoxetine (CYMBALTA) 60 mg capsule Take 1 capsule by mouth every morning. DULoxetine (CYMBALTA) 30 mg capsule Take 1 capsule by mouth daily at bedtime. albuterol HFA (PROVENTIL HFA, VENTOLIN HFA) 90 mcg/actuation inhaler Inhale 2 Puffs as instructed every 6 hours as needed for Wheezing/Shortness of Breath. risperiDONE (RISPERDAL) 3 mg tablet Take 1 tablet by mouth twice daily. triamcinolone (KENALOG) 0.025 % cream Apply 1 application to affected area twice daily. (Patient taking differently: Apply 1 application to affected area twice daily. Uses as needed) cloNIDine HCl (CATAPRES) 0.1 mg tablet Takes 1 to 2 pills daily as needed. (per Mother) For anger gabapentin (NEURONTIN) 300 mg capsule Take 1 capsule by mouth twice daily. divalproex ER 500 mg 24 hr tablet Take 1,000 mg by mouth twice daily. omeprazole (PRILOSEC) 20 mg capsule Take 1 capsule by mouth once daily. Current Facility-Administered Medications Medication Dose Route Frequency perflutren lipid microspheres 1.3 mL in NaCl (PF) 0.9% 10 mL injection (DEFINITY) INTRAVENOUS DIRECTED PRN sodium chloride 0.9 % (flush) 10 mL (BD POSIFLUSH) 10 mL INTRAVENOUS DIRECTED PRN PAST MEDICAL HISTORY Diagnosis Date Asthma 03/05/2010 ATTN DEFICIT NONHYPERACT 04/18/2006 Congenital pes planus 09/27/2010 DEPRESSIVE DISORDER NEC 04/18/2006 Encopresis 12/15/2014 Enuresis 12/15/2014 Excessive anger 07/14/2012 followed by psychiatry Family history of colon cancer Maternal Grandmother was 33years old when diagnosed and from colon cancer (will need colonoscopy at 28years old for screeening) Mental retardation, moderate (I.Q. 35-49) 10/12/2007 Obesity 12/15/2014 S/P lumbar laminectomy 09/2019 Dr. Weinstein Spinal stenosis of lumbar region with neurogenic claudication 05/10/2019 Social History Tobacco Use Smoking status: Never Smokeless tobacco: Never Vaping Use Vaping Use: Never used Substance Use Topics Alcohol use: Never Drug use: Never Component Latest Ref Rng & Units 09/09/2021 12/07/2021 04/23/2022 04/25/2022 WBC 3.70 - 11.00 k/uL 7.62 RBC 4.20 - 6.00 m/uL 4.69 Hemoglobin 13.0 - 17.0 g/dL 13.4 Hematocrit 39.0 - 51.0 % 40.2 MCV 80.0 - 100.0 fL 85.7 MCH 26.0 - 34.0 pg 28.6 MCHC 30.5 - 36.0 g/dL 33.3 RDW-CV 11.5 - 15.0 % 12.1 Platelet Count 150 - 400 k/uL 174 MPV 9.0 - 12.7 fL 10.6 NRBC /100 WBC 0.0 Absolute nRBC <0.01 k/uL <0.01 Neut% % 65.0 Abs Neut (ANC) 1.45 - 7.50 k/uL 4.95 Lymph% % 26.0 Abs Lymph 1.00 - 4.00 k/uL 1.98 Hudspeth% % 6.0 Abs Hudspeth <0.87 k/uL 0.46 Eosin% % 0.0 Abs Eosin <0.46 k/uL 0.00 Baso% % 1.0 Abs Baso <0.11 k/uL 0.08 Myelo% % 2.0 Left Shift Present Platelet Estimate Adequate Red Cell Morph Reviewed: unremarkable DTYPE Manual Protein, Total 6.3 - 8.0 g/dL 6.6 6.7 6.4 Albumin 3.9 - 4.9 g/dL 4.4 4.1 4.2 Calcium 8.5 - 10.2 mg/dL 9.8 9.2 9.0 Bilirubin, Total 0.2 - 1.3 mg/dL 0.2 0.3 0.3 Alkaline Phosphatase 38 - 113 U/L 85 68 67 AST 14 - 40 U/L 82 (H) 81 (H) 49 (H) Glucose 74 - 99 mg/dL 140 (H) 113 (H) 183 (H) BUN 9 - 24 mg/dL 10 8 (L) 11 Creatinine 0.73 - 1.22 mg/dL 0.56 (L) 0.48 (L) 0.54 (L) Sodium 136 - 144 mmol/L 135 (L) 140 138 Potassium 3.7 - 5.1 mmol/L 4.5 4.3 4.4 Chloride 97 - 105 mmol/L 97 100 99 CO2 22 - 30 mmol/L 24 28 27 Anion Gap 9 - 18 mmol/L 14 12 12 ALT 10 - 54 U/L 74 (H) 84 (H) 50 eGFR- >60 eGFR-All Other Races . >60 eGFR >=60 mL/min/1.73m 143 138 Hemoglobin A1C 4.3 - 5.6 % 6.5 (H) 6.4 (H) Estimated Average Glucose mg/dL 140 137 Valproic Acid 50.0 - 100.0 ug/mL Unable to assay. No specimen received. 82.8 NT Pro BNP <125 pg/mL <50 Assessment and Plan ASSESSMENT/PLAN: 1. Essential hypertension - ICD9: 401.9, ICD10: I10 (primary diagnosis) - CBC + DIFF - COMP METABOLIC PANEL 2. Encounter for immunization - ICD9: V03.89, ICD10: Z23 - TDAP VACCINE AGE 7+ IM 3. Reactive depression - ICD9: 300.4, ICD10: F32.9 4. Attention deficit disorder (ADD) without hyperactivity - ICD9: 314.00, ICD10: F98.8 5. 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 - ICD9: 318.0, ICD10: F71 [address] Dasilva [facility]. Currently stable 6. DWIGHT (obstructive sleep apnea) - ICD9: 327.23, ICD10: G47.33 Using CPAP, going well 7. Gastroesophageal reflux disease, unspecified whether esophagitis present - ICD9: 530.81, ICD10: K21.9 Stable on PPI, currently controlled, continue to monitor. - CBC + DIFF 8. Class 3 severe obesity without serious comorbidity with body mass index (BMI) of 45.0 to 49.9 in adult, unspecified obesity type (HCC) - ICD9: 278.01, V85.42, ICD10: E66.01, Z68.42 Taking psychiatri medications which contribute to obesity, notes can not be changed Family history of hypothyroid, will check today. Consider bariatric provider, medication if appropriate such as Wegovy. - [facility] 9. IFG (impaired fasting glucose) - ICD9: 790.21, ICD10: R73.01 - HGB A1C 10. Hypertension, unspecified type - ICD9: 401.9, ICD10: I10 - LISINOPRIL 10 MG TABLET 11. Spinal stenosis of lumbar region with neurogenic claudication - ICD9: 724.03, ICD10: M48.[address] Mary - GABAPENTIN 300 MG CAPSULE 12. Mild intermittent asthma without complication - ICD9: 493.90, ICD10: J45.20 Stable, currently controlled, continue to monitor. - LEVALBUTEROL HFA 45 MCG/ACTUATION AEROSOL INHALER 13. Weight gain - ICD9: 783.1, ICD10: R63.5 - TSH BLD 14. Primary hypertension - ICD9: 401.9, ICD10: I10 controlled - Continue current medication(s) - Encouraged dietary sodium restriction/DASH diet - Recommended regular aerobic exercise. Labs today 6 mo follow up with labs MD Sarah Marks APRN.HEALTH CARE SPECIALIST Medical Decision Making: Problems: Moderate: 2+ stable chronic illnesses and 1+ chronic illnesses with change Data: Unique test(s) ordered: 2 Risk: Moderate: Drug management Medical Decision Making Level: 4 - Moderate documented in this encounter [facility] 06-27-2022 Miscellaneous Notes Patient mother Lanie notified of providers message and verbalized understanding. Labs 3 months after March labs entered to follow up on blood sugars and rest of labs including lipids Patient's mother calls and states that she thought provider wanted patient to get labs done. Mother took patient to lab and there are no orders placed. Mother asking if provider wants labs done? Please review and advise, Barbara Posada, RN documented in this encounter [facility] 05-13-2022 History of Presen t illness Narrative This note was created using [employer]. Subjective Niko Brooke is a 31 year old male. Patient presents with: Yearly Exam SUBJECTIVE:gentleman Niko Brooke is a 31 year old year old gentleman here today for 6 month follow up appointment for review of medical conditions. Some trouble breathing. SOB. BAJWA mostly. Noted had lost weight but recently gained some back Has history of asthma but not complaining of asthma exacerbation. No complaints of exertional chest pain. Stable on meds for BP as well as psychiatric meds prescribed by Dr. Dasilva. PAST MEDICAL HISTORY Diagnosis Date Asthma 03/05/2010 ATTN DEFICIT NONHYPERACT 04/18/2006 Congenital pes planus 09/27/2010 DEPRESSIVE DISORDER NEC 04/18/2006 Encopresis 12/15/2014 Enuresis 12/15/2014 Excessive anger 07/14/2012 followed by psychiatry Family history of colon cancer Maternal Grandmother was 33years old when diagnosed and from colon cancer (will need colonoscopy at 30years old for screeening) Mental retardation, moderate (I.Q. 35-49) 10/12/2007 Obesity 12/15/2014 S/P lumbar laminectomy 09/2019 Dr. Weinstein Spinal stenosis of lumbar region with neurogenic claudication 05/10/2019 Current Outpatient Medications Medication Sig omeprazole (PRILOSEC) 20 mg capsule Take 1 capsule by mouth once daily. MAGNESIUM CARBONATE ORAL Take 1 tablet by mouth. lisinopril (ZESTRIL, PRINIVIL) 10 mg tablet Take 1 tablet by mouth once daily. Take with 5 mg lisinopril once daily lisinopril (ZESTRIL, PRINIVIL) 5 mg tablet Take 1 tablet by mouth once daily. Take with 10 mg lisinopril once daily CPAP Initiate Auto PAP @ 5-20 cm of water with humidification. Mask (per patient preference) optional chin strap (if indicated) , filters, tubing, humidifier and lifetime supplies. DULoxetine (CYMBALTA) 60 mg capsule Take 1 capsule by mouth every morning. DULoxetine (CYMBALTA) 30 mg capsule Take 1 capsule by mouth daily at bedtime. albuterol HFA (PROVENTIL HFA, VENTOLIN HFA) 90 mcg/actuation inhaler Inhale 2 Puffs as instructed every 6 hours as needed for Wheezing/Shortness of Breath. risperiDONE (RISPERDAL) 3 mg tablet Take 1 tablet by mouth twice daily. triamcinolone (KENALOG) 0.025 % cream Apply 1 application to affected area twice daily. (Patient taking differently: Apply 1 application to affected area twice daily. Uses as needed) cloNIDine HCl (CATAPRES) 0.1 mg tablet Takes 1 to 2 pills daily as needed. (per Mother) For anger gabapentin (NEURONTIN) 300 mg capsule Take 1 capsule by mouth twice daily. divalproex ER 500 mg 24 hr tablet Take 1,000 mg by mouth twice daily. Current Facility-Administered Medications Medication Dose Route Frequency perflutren lipid microspheres 1.3 mL in NaCl (PF) 0.9% 10 mL injection (DEFINITY) INTRAVENOUS DIRECTED PRN sodium chloride 0.9 % (flush) 10 mL (BD POSIFLUSH) 10 mL INTRAVENOUS DIRECTED PRN Review of Systems Objective BP 112/72 Pulse 92 Wt (!) 171.9 kg (379 lb) SpO2 97% BMI 48.66 kg/m Physical Exam Vitals reviewed. Constitutional: Appearance: Normal appearance. He is obese. HENT: Head: Normocephalic. Right Ear: Tympanic membrane, ear canal and external ear normal. Left Ear: Tympanic membrane, ear canal and external ear normal. Mouth/Throat: Mouth: Mucous membranes are moist. Pharynx: Oropharynx is clear. Eyes: Extraocular Movements: Extraocular movements intact. Conjunctiva/sclera: Conjunctivae normal. Cardiovascular: Rate and Rhythm: Normal rate and regular rhythm. Pulses: Normal pulses. Heart sounds: Normal heart sounds. Pulmonary: Effort: Pulmonary effort is normal. Breath sounds: Normal breath sounds. Abdominal: General: Abdomen is flat. There is no distension. Palpations: Abdomen is soft. There is no mass. Musculoskeletal: Cervical back: Normal range of motion. Skin: General: Skin is warm and dry. Neurological: General: No focal deficit present. Mental Status: He is alert and oriented to person, place, and time. Psychiatric: Attention and Perception: Attention normal. Mood and Affect: Mood normal. Affect is blunt. Speech: Speech normal. Behavior: Behavior normal. Behavior is cooperative. Thought Content: Thought content normal. WBC 3.70 - 11.00 k/uL 7.62 RBC 4.20 - 6.00 m/uL 4.69 Hemoglobin 13.0 - 17.0 g/dL 13.4 Hematocrit 39.0 - 51.0 % 40.2 MCV 80.0 - 100.0 fL 85.7 MCH 26.0 - 34.0 pg 28.6 MCHC 30.5 - 36.0 g/dL 33.3 RDW-CV 11.5 - 15.0 % 12.1 Platelet Count 150 - 400 k/uL 174 MPV 9.0 - 12.7 fL 10.6 NRBC /100 WBC 0.0 Absolute nRBC <0.01 k/uL <0.01 Neut% % 65.0 Abs Neut (ANC) 1.45 - 7.50 k/uL 4.95 Lymph% % 26.0 Abs Lymph 1.00 - 4.00 k/uL 1.98 Hudspeth% % 6.0 Abs Hudspeth <0.87 k/uL 0.46 Eosin% % 0.0 Abs Eosin <0.46 k/uL 0.00 Baso% % 1.0 Abs Baso <0.11 k/uL 0.08 Myelo% % 2.0 Left Shift Present Platelet Estimate Adequate Red Cell Morph Reviewed: unremarkable DTYPE Manual Protein, Total 6.3 - 8.0 g/dL 6.4 Albumin 3.9 - 4.9 g/dL 4.2 Calcium 8.5 - 10.2 mg/dL 9.0 Bilirubin, Total 0.2 - 1.3 mg/dL 0.3 Alkaline Phosphatase 38 - 113 U/L 67 AST 14 - 40 U/L 49 (H) ALT 10 - 54 U/L 50 Glucose 74 - 99 mg/dL 183 (H) BUN 9 - 24 mg/dL 11 Creatinine 0.73 - 1.22 mg/dL 0.54 (L) Sodium 136 - 144 mmol/L 138 Potassium 3.7 - 5.1 mmol/L 4.4 Chloride 97 - 105 mmol/L 99 CO2 22 - 30 mmol/L 27 Anion Gap 9 - 18 mmol/L 12 eGFR >=60 mL/min/1.73m 138 Hemoglobin A1C 4.3 - 5.6 % 6.4 (H) Estimated Average Glucose mg/dL 137 NT Pro BNP <125 pg/mL <50 Assessment and Plan Encounter Diagnosis ICD-10-CM 1. BAJWA (dyspnea on exertion) R06.09 2. Essential hypertension I10 3. Class 3 severe obesity due to excess calories with body mass index (BMI) of 45.0 to 49.9 in adult, unspecified whether serious comorbidity present ([facility]) E66.01 Z68.42 4. Mild intermittent asthma without complication J45.20 5. Encounter for immunization Z23 INFLUENZA VACCINE QUADRIVALENT 6 MO - 64 YRS IM 6. Reactive depression F32.9 Anger issues also controlled with current meds Patient here for yearly exam and follow up. Concerns and chronic medical issues as noted above/ Above issues addressed with patient. Patient involved in shared decision making for management of medical issues. Continue present management. Continue present meds. Restrictive lung disorder due to morbid obesity probably main cause of BAJWA. Work on weight loss. Consider PFTs to further evaluate if worsening BAJWA. Cardiac work up as indicated (Chest pain, angina equivalent, etc). History and medications reviewed. Epic updated as needed Refills and/or prescriptions taken care of and meds adjusted as indicated after reviewed history, exam and labs. Health Maintenance reviewed. Updated record and/or ordered tests as recorded. Encouraged on efforts at healthy diet and regular exercise and adequate sleep. Hector Currie MD documented in this encounter [facility] 05-01-2022 History of Presen t illness Narrative Subjective HPI Francis presents today with complaint of pain in the right foot x two days following a injury where he it his foot on a table. He rates his pain a 10 when ambulation and 5 when sitting, he is using tylenol twice daily for the discomfort. Mom states she noted some bruising on the top of food and a small amount of swelling " just wants to make sure everything is ok" He has NOT used ice and he has been doing his normal activities without limping or any deficit beyond pain. PAST MEDICAL HISTORY Diagnosis Date Asthma 03/05/2010 ATTN DEFICIT NONHYPERACT 04/18/2006 Congenital pes planus 09/27/2010 DEPRESSIVE DISORDER NEC 04/18/2006 Encopresis 12/15/2014 Enuresis 12/15/2014 Excessive anger 07/14/2012 followed by psychiatry Family history of colon cancer Maternal Grandmother was 33years old when diagnosed and from colon cancer (will need colonoscopy at 30years old for screeening) Mental retardation, moderate (I.Q. 35-49) 10/12/2007 Obesity 12/15/2014 S/P lumbar laminectomy 09/2019 Dr. Weinstein Spinal stenosis of lumbar region with neurogenic claudication 05/10/2019 PAST SURGICAL HISTORY Procedure Laterality Date CIRCUMCISION LAMINECTOMY,LUMBAR 09/2019 L3,4,5 Dr. Weinstein TONSILLECTOMY & ADENOIDECTOMY <AGE 12 ALLERGIES Seasonal Allergies MEDICATIONS MAGNESIUM CARBONATE ORAL^Take 1 tablet by mouth.^Disp: ^Rfl: lisinopril (ZESTRIL, PRINIVIL) 10 mg tablet^Take 1 tablet by mouth once daily. Take with 5 mg lisinopril once daily^Disp: 30 tablet^Rfl: 11 lisinopril (ZESTRIL, PRINIVIL) 5 mg tablet^Take 1 tablet by mouth once daily. Take with 10 mg lisinopril once daily^Disp: 30 tablet^Rfl: 11 CPAP^Initiate Auto PAP @ 5-20 cm of water with humidification. Mask (per patient preference) optional chin strap (if indicated) , filters, tubing, humidifier and lifetime supplies.^Disp: 1 Device^Rfl: 0 DULoxetine (CYMBALTA) 60 mg capsule^Take 1 capsule by mouth every morning.^Disp: ^Rfl: DULoxetine (CYMBALTA) 30 mg capsule^Take 1 capsule by mouth daily at bedtime.^Disp: ^Rfl: albuterol HFA (PROVENTIL HFA, VENTOLIN HFA) 90 mcg/actuation inhaler^Inhale 2 Puffs as instructed every 6 hours as needed for Wheezing/Shortness of Breath.^Disp: 1 Inhaler^Rfl: 2 risperiDONE (RISPERDAL) 3 mg tablet^Take 1 tablet by mouth twice daily.^Disp: ^Rfl: triamcinolone (KENALOG) 0.025 % cream^Apply 1 application to affected area twice daily.^Disp: 30 g^Rfl: 0 (Patient taking differently: Apply 1 application to affected area twice daily. Uses as needed) cloNIDine HCl (CATAPRES) 0.1 mg tablet^Takes 1 to 2 pills daily as needed. (per Mother) For anger^Disp: ^Rfl: divalproex ER 500 mg 24 hr tablet^Take 1,000 mg by mouth twice daily. ^Disp: ^Rfl: omeprazole (PRILOSEC) 20 mg capsule^Take 1 capsule by mouth once daily.^Disp: 30 capsule^Rfl: 11 gabapentin (NEURONTIN) 300 mg capsule^Take 1 capsule by mouth twice daily.^Disp: ^Rfl: FAMILY HISTORY Problem Relation Age of Onset Colon Polyps Mother large polyp other (Hypothyroidism [Other]) Mother Colon Cancer Father 50's Diabetes Father Hypertension Father Cancer Father Colon Colon Polyps Brother Colon Cancer Maternal Grandmother 34 Cancer Maternal Grandmother from breast and uterine cancer Diabetes Maternal Grandfather Colon Cancer Paternal Grandfather late 60's Cancer Paternal Grandfather from Colon Cancer Social History Tobacco Use Smoking status: Never Smokeless tobacco: Never Vaping Use Vaping Use: Never used Substance Use Topics Alcohol use: Never Drug use: Never Review of Systems Musculoskeletal: Pain in right foot All other systems reviewed and are negative. Objective Physical Exam Vitals reviewed. Constitutional: Appearance: Normal appearance. HENT: Head: Normocephalic and atraumatic. Nose: Nose normal. Eyes: Pupils: Pupils are equal, round, and reactive to light. Pulmonary: Effort: Pulmonary effort is normal. Musculoskeletal: General: Signs of injury present. Cervical back: Normal range of motion. Comments: Scant edema noted in right foot, slight bruising noted to the dorsal surface, FROM noted but states discomfort when asked to ambulate in room , pain with deep palpation Skin: General: Skin is warm. Neurological: General: No focal deficit present. Mental Status: He is alert. ASSESSMENT/PLAN: 1. Foot pain, right - ICD9: 729.5, ICD10: M79.671 Ice/ elevate and rest Motrin prn Call if not improving - XR FOOT GENERAL 3V AP/LAT/OBL RIGHT Alyssa Hernandez APRN.RETA[employer]ES MERCH[employer]ISER documented in this encounter [facility] 04-29-2022 Miscellaneous Notes Patient's mother Lanie notified, verbalized understanding. Transferred to schedulers. Schuyler Ramon Ma Please let the patient know BNP was normal. He will need to have an echocardiogram, which is an ultrasound of the heart, to evaluate shortness of breath further. Ligia Coughlin APRN.CNP documented in this encounter [facility] 04-23-2022 Miscellaneous Notes Patient's mother Lanie notified, verbalized understanding. Schuyler Ramon Ma Please let the patient know the chest x-ray was normal. D-dimer was negative, no blood clots. The CBC and chemistry profile was within acceptable limits. I don't the results of BNP yet, will call as soon as I get these Ligia Coughlin APRN.CNP documented in this encounter [facility] 04-23-2022 History of Presen t illness Narrative Radiology Service Progress Note PATIENT NAME: Niko Brooke DATE OF SERVICE: April 23, 2022 TIME: 9:41 AM PATIENT IDENTITY VERIFICATION COMPLETED USING TWO (2) IDENTIFIERS: Name and Date of confirmed by patient verbally. FALL SCREENING: Has the patient had 2 falls in the last year or 1 fall with injury or currently using an Ambulatory Assistive Device (Walker, Cane, Wheelchair, Crutches, etc.)? No PATIENT GENDER DATA: Male PATIENT RELEVANT IMPLANT DATA REVIEWED: Yes RADIOLOGY DEPARTMENT: General X-ray: Exam(s) Completed: Chest X-Ray PERIPHERAL IV DATA: Not applicable SIGNED BY: RT Shayy(R) April 23, 2022 9:41 AM documented in this encounter [facility] 03-11-2022 Miscellaneous Notes Please call patient inform him biopsy unremarkable consistent with acid reflux - continue omeprazole 20mg daily on empty stomach. Colonoscopy one polyp was found which is tubular adenoma - precancerous recommend 5 year colonoscopy for surveillance purposes Thanks Roseanna Ross APRN.CNP documented in this encounter [facility] 03-05-2022 Note C. There is reactive epithelial change with no evidence of dysplasia. This case has been reviewed at the departmental consensus conference on 03/11/2022. The diagnosis represents the consensus of the group. [facility] Comment on above: Order Comment: Speci men Type: TISSUE SPECIMEN Ordering Facility: [facility] Address: [address] [place] [address] Performed By: #### S #### [facility] CLIA [id number] [address] [place] [address] 03-05-2022 History and physical note CHIEF COMPLAINT: Patient presents with: GERD Outpatient Colonoscopy: due to family history of colon cancer This consult was requested by Sarah Herrmann APRN.CNS for an opinion regarding colon cancer screening. My final recommendations will be communicated to the requesting health care provider by way of the shared medical record for internal providers or letter via the [employer] for external providers. Niko Brooke is a 31 year old male with a past medical history asthma, depression, spinal stenosis status, encopresis, attention deficit nonhyperactive, excessive anger, DWIGHT on CPAP, HTN. Who presents for colon cancer screening. Patient has a family history of father diagnosed with colon cancer sometime in his 50s, mother has a history large adenoma polyp, brother has a history of colon polyps, maternal grandmother diagnosed with colon cancer and paternal grandfather diagnosed with colon cancer. HPI: Patient presents today with mother. Here to be evaluated for colon cancer screening has a significant family history of colon colon cancer and colon polyps. ( SEE ABOVE). The patient denies change in bowel habits, rectal bleeding or abdominal pain. Having a bowel movement daily or every other day. Patient reports constipation. Patient reports weekly constipation. Patient denies taking anything for constipation. Patient reports he does not drink enough water. Patient reports he is having acid reflux daily - denies taking anything for it. He reports at times food getting stuck like dry foods and at times chokes on liquid. Patient reports he feels full fast 1 week. Denies nausea or vomiting Usually has dinner: 5-6pm Evening snack: eats before he goes to bed - peanut butter, juice, donut, cottage cheese. Bedtime medications: yes Heads to bed: 8-10pm Sleeps in a regular bed with the head of the bed 1 pillow. Record Review: [facility] / Outside records reviewed. PAST MEDICAL HISTORY PAST MEDICAL HISTORY Diagnosis Date Asthma 03/05/2010 ATTN DEFICIT NONHYPERACT 04/18/2006 Congenital pes planus 09/27/2010 DEPRESSIVE DISORDER NEC 04/18/2006 Encopresis 12/15/2014 Enuresis 12/15/2014 Excessive anger 07/14/2012 followed by psychiatry Family history of colon cancer Maternal Grandmother was 33years old when diagnosed and from colon cancer (will need colonoscopy at 28years old for screeening) Mental retardation, moderate (I.Q. 35-49) 10/12/2007 Obesity 12/15/2014 S/P lumbar laminectomy 09/2019 Dr. Weinstein Spinal stenosis of lumbar region with neurogenic claudication 05/10/2019 PAST SURGICAL HISTORY PAST SURGICAL HISTORY Procedure Laterality Date CIRCUMCISION LAMINECTOMY,LUMBAR 09/2019 L3,4,5 Dr. Weinstein TONSILLECTOMY & ADENOIDECTOMY <AGE 12 Allergies: ALLERGIES ALLERGIES Allergen Reactions Seasonal Allergies Other: See Comments Medications: CURRENT MEDICATIONS MAGNESIUM CARBONATE ORAL Take 1 tablet by mouth. lisinopril (ZESTRIL, PRINIVIL) 10 mg tablet Take 1 tablet by mouth once daily. Take with 5 mg lisinopril once daily lisinopril (ZESTRIL, PRINIVIL) 5 mg tablet Take 1 tablet by mouth once daily. Take with 10 mg lisinopril once daily DULoxetine (CYMBALTA) 60 mg capsule Take 1 capsule by mouth every morning. DULoxetine (CYMBALTA) 30 mg capsule Take 1 capsule by mouth daily at bedtime. albuterol HFA (PROVENTIL HFA, VENTOLIN HFA) 90 mcg/actuation inhaler Inhale 2 Puffs as instructed every 6 hours as needed for Wheezing/Shortness of Breath. risperiDONE (RISPERDAL) 3 mg tablet Take 1 tablet by mouth twice daily. triamcinolone (KENALOG) 0.025 % cream Apply 1 application to affected area twice daily. cloNIDine HCl (CATAPRES) 0.1 mg tablet Takes 1 to 2 pills daily as needed. (per Mother) For anger gabapentin (NEURONTIN) 300 mg capsule Take 1 capsule by mouth twice daily. divalproex ER 500 mg 24 hr tablet Take 1,000 mg by mouth twice daily. polyethylene glycol 3350 (MIRALAX, GLYCOLAX) 17 gram/dose powder Use as directed for Miralax / Gatorade Bowel Prep Kit Bisacodyl (DULCOLAX) 5 mg tab Use as directed for Miralax / Gatorade Bowel Prep Kit omeprazole (PRILOSEC) 20 mg capsule Take 1 capsule by mouth once daily. CPAP Initiate Auto PAP @ 5-20 cm of water with humidification. Mask (per patient preference) optional chin strap (if indicated) , filters, tubing, humidifier and lifetime supplies. naproxen (NAPROSYN) 500 mg tablet Take 1 tablet by mouth twice daily as needed. FAMILY HISTORY FAMILY HISTORY Problem Relation Age of Onset Colon Polyps Mother large polyp other (Hypothyroidism [Other]) Mother Colon Cancer Father 50's Diabetes Father Hypertension Father Cancer Father Colon Colon Polyps Brother Colon Cancer Maternal Grandmother 34 Cancer Maternal Grandmother from breast and uterine cancer Diabetes Maternal Grandfather Colon Cancer Paternal Grandfather late 60's Cancer Paternal Grandfather from Colon Cancer OCCUPATION & MARITAL STATUS Employer And Job Title: None on file Years Of Education Completed: Not specified Marital Status: Single SOCIAL HISTORY Social History Tobacco Use Smoking status: Never Smoker Smokeless tobacco: Never Used Substance Use Topics Alcohol use: No Drug use: No Review of Systems: Review of Systems Respiratory: Positive for shortness of breath. Cardiovascular: Positive for leg swelling. All other systems reviewed and are negative. Are you taking any blood thinners? No Physical Examination: BP 132/80 Pulse 102 Ht 6' 1.228" (1.86m) Wt 393 lb (178.3kg) SpO2 96% BMI 51.53 kg/(m^2). Physical Exam Constitutional: Appearance: Normal appearance. He is normal weight. HENT: Head: Normocephalic and atraumatic. Eyes: Extraocular Movements: Extraocular movements intact. Pupils: Pupils are equal, round, and reactive to light. Cardiovascular: Rate and Rhythm: Normal rate and regular rhythm. Pulses: Normal pulses. Heart sounds: Normal heart sounds. Pulmonary: Effort: Pulmonary effort is normal. Breath sounds: Normal breath sounds. Abdominal: General: Abdomen is flat. Bowel sounds are normal. Palpations: Abdomen is soft. Musculoskeletal: General: Normal range of motion. Cervical back: Normal range of motion and neck supple. Skin: General: Skin is warm and dry. Neurological: General: No focal deficit present. Mental Status: He is alert and oriented to person, place, and time. Psychiatric: Mood and Affect: Mood normal. Behavior: Behavior normal. ASSESSMENT: Family history of colon cancer Colon cancer screening Family history of colon cancer in father (primary encounter diagnosis) Dysphagia, unspecified type PLAN: Assessment/Plan (Z80.0) Family history of colon cancer in father (primary encounter diagnosis) (Z80.0) Family history of colon cancer (Z12.11) Colon cancer screening (R13.10) Dysphagia, unspecified type 1. Family history of colon cancer Patient has a family history of father diagnosed with colon cancer sometime in his 50s, mother has a history large adenoma polyp, brother has a history of colon polyps, maternal grandmother diagnosed with colon cancer and paternal grandfather diagnosed with colon cancer. - CONSULT TO GASTROENTEROLOGY - polyethylene glycol 3350 (MIRALAX, GLYCOLAX) 17 gram/dose powder; Use as directed for Miralax / Gatorade Bowel Prep Kit Dispense: 238 g; Refill: 0 - Bisacodyl (DULCOLAX) 5 mg tab; Use as directed for Miralax / Gatorade Bowel Prep Kit Dispense: 4 tablet; Refill: 0 - COLONOSCOPY SCREENING; Future 2. Colon cancer screening - CONSULT TO GASTROENTEROLOGY - polyethylene glycol 3350 (MIRALAX, GLYCOLAX) 17 gram/dose powder; Use as directed for Miralax / Gatorade Bowel Prep Kit Dispense: 238 g; Refill: 0 - Bisacodyl (DULCOLAX) 5 mg tab; Use as directed for Miralax / Gatorade Bowel Prep Kit Dispense: 4 tablet; Refill: 0 - COLONOSCOPY SCREENING; Future 3. Family history of colon cancer in father - polyethylene glycol 3350 (MIRALAX, GLYCOLAX) 17 gram/dose powder; Use as directed for Miralax / Gatorade Bowel Prep Kit Dispense: 238 g; Refill: 0 - Bisacodyl (DULCOLAX) 5 mg tab; Use as directed for Miralax / Gatorade Bowel Prep Kit Dispense: 4 tablet; Refill: 0 - COLONOSCOPY SCREENING; Future 4. Dysphagia, unspecified type -Patient reports having daily acid reflux symptoms with choking on solids and liquids at times. Currently is not taking any medication for symptoms will start on omeprazole 20 mg once daily on empty stomach. Discussed in detail GERD lifestyle changes. Recommend EGD with esophageal biopsies - EGD DIAGNOSTIC; Future Follow up in office 3 months/PRN. Recommended to please call office/go to ER if fever, chills, chest pain, SOB, diarrhea, nausea, emesis, worsening abdominal pain, dehydration occurs I spent 30 minutes in the visit, with more than 50% of the total [id number] time of the visit in counseling / coordination of care. I have confirmed and edited as necessary, the PFSH and ROS obtained by others. Roseanna Ross APRN.RETAIL SALES MERCHANDISER UPDATED HISTORY AND PHYSICAL EXAMINATION SERVICE DATE: 03/05/2022 SERVICE TIME: 8:30 AM PHYSICAL EXAM MUST BE COMPLETED ON ADMISSION The History and Physical (completed in the past 30 days) has been reviewed and the patient has been examined. The contents accurately reflect the patient's condition with the following additions or revisions since the H&P was completed. Examination indicates no changes. This H&P can be found in the attached. SIGNATURE: Jaret Kign III, MD PATIENT NAME: Niko Brooke DATE: March 05, 2022 TIME: 8:30 AM documented in this encounter [facility] 02-05-2022 History and physical note HISTORY AND PHYSICAL EXAMINATION SERVICE DATE: 02/05/2022 SERVICE TIME: 8:34 AM PRIMARY CARE PHYSICIAN: Hector Currie MD REASON FOR VISIT: Niko Brooke is a 31 year old male who is scheduled for EGD/colonoscopy at the request of Dr. Jaret P [place] for consultation. My final recommendation will be communicated back to the requesting physician by way of shared medical record or letter. Subjective The patient has the following: ACTIVE PROBLEM LIST Reactive Depression Attention Deficit Disorder Moderate Intellectual Disability With Intelligence Quotient 35 to 49 Asthma Congenital Pes Planus Excessive Anger Obesity, Class Iii, Bmi 40-49.9 (Morbid Obesity) (Hcc) Encopresis Enuresis Hereditary and Idiopathic Peripheral Neuropathy Plantar Fascial Fibromatosis Abnormal Gait Dwight (Obstructive Sleep Apnea) Spinal Stenosis of Lumbar Region With Neurogenic Claudication S/P Lumbar Laminectomy Essential Hypertension Gerd (Gastroesophageal Reflux Disease) Prediabetes Family History of Colon Cancer Colon Cancer Screening COVID-19 Immunization Status COVID-19 VACCINE (Series Information) Completed 09/09/2021 Imm Admin: COVID-19 vaccine, age 12+ yr (PFIZER-BIONTECH - HOUSER TOP) 11/25/2020 Imm Admin: COVID-19 vaccine, age 12+ yr (PFIZER-BIONTECH - PURPLE TOP) 11/03/2020 Imm Admin: COVID-19 vaccine, age 12+ yr (PFIZER-BIONTECH - PURPLE TOP) CHIEF COMPLAINT: Pre-op exam HPI: NAYELI is a 31 yo seen for PAC due to scheduled above surgery because family hx of early colon cancer. REVIEW OF SYSTEMS: General: No weight loss, malaise or fevers. Neurological: Positive for: peripheral neuropathy (on rx). Negative for: cerebral palsy, HEALTH CARE SPECIALIST tumor, dementia, headaches, hemiplegia, Parkinson's disease, seizures, TIA and strokes. Respiratory: Positive for: asthma (rx as needed) and obstructive sleep apnea (has not recieved CPAP). Negative for: COPD, pneumonia within 6 weeks, tobacco use and URI < 2 weeks. Cardiovascular: Positive for: hypertension (on rx) Negative for: anticoagulation therapy, arrhythmia, atrial fibrillation, CAD, chest pain, CHF, congenital heart defect, DVT/PE, hyperlipidemia, recent OH, murmur/valvular heart disease, open heart surgery and valve surgery. GI: See HPI. Positive for: GERD (on rx) Negative for: abdominal pain, dysphagia, hepatitis, irritable bowel syndrome, inflammatory bowel disease, liver disease, nausea, vomiting and ETOH >2 drinks/day. : No history of dysuria, frequency or incontinence, stones or chronic kidney disease. No difficulty urinating, nocturia > 1 time per night or hematuria. Endocrine: +prediabetes, diet controlled. No history of diabetes. Has not taken steroids within the past 30 days. No history of endocrinological symptoms or problems. Hematology: No history of bleeding or clotting disorder. Patient is not taking anti-coagulation or platelet medications. No history of hematological symptoms or problems. Oncology: No history of CA metastasis, chemo within 30 days, or radiotherapy within 90 days. No history of oncological symptoms or problems. Psych: Positive for: depression (on rx). Musculoskeletal: +h/o lumbar laminectomy Positive for: back pain. Skin: +eczema, rx as needed. Negative for lesions, rash and itching. PAST MEDICAL HISTORY Diagnosis Date Asthma 03/05/2010 ATTN DEFICIT NONHYPERACT 04/18/2006 Congenital pes planus 09/27/2010 DEPRESSIVE DISORDER NEC 04/18/2006 Encopresis 12/15/2014 Enuresis 12/15/2014 Excessive anger 07/14/2012 followed by psychiatry Family history of colon cancer Maternal Grandmother was 33years old when diagnosed and from colon cancer (will need colonoscopy at 28years old for screeening) Mental retardation, moderate (I.Q. 35-49) 10/12/2007 Obesity 12/15/2014 S/P lumbar laminectomy 09/2019 Dr. Weinstein Spinal stenosis of lumbar region with neurogenic claudication 05/10/2019 PAST SURGICAL HISTORY Procedure Laterality Date CIRCUMCISION LAMINECTOMY,LUMBAR 09/2019 L3,4,5 Dr. Weinstein TONSILLECTOMY & ADENOIDECTOMY <AGE 12 FAMILY HISTORY Problem Relation Age of Onset Colon Polyps Mother large polyp other (Hypothyroidism [Other]) Mother Colon Cancer Father 50's Diabetes Father Hypertension Father Cancer Father Colon Colon Polyps Brother Colon Cancer Maternal Grandmother 34 Cancer Maternal Grandmother from breast and uterine cancer Diabetes Maternal Grandfather Colon Cancer Paternal Grandfather late 60's Cancer Paternal Grandfather from Colon Cancer Social History Tobacco Use Smoking status: Never Smoker Smokeless tobacco: Never Used Vaping Use Vaping Use: Never used Substance Use Topics Alcohol use: Never Drug use: Never Prior to Admission medications as of 02/05/22 0814 Medication Sig Last Dose Taking MAGNESIUM CARBONATE ORAL Take 1 tablet by mouth. Taking Yes omeprazole (PRILOSEC) 20 mg capsule Take 1 capsule by mouth once daily. Taking Yes lisinopril (ZESTRIL, PRINIVIL) 10 mg tablet Take 1 tablet by mouth once daily. Take with 5 mg lisinopril once daily Taking Yes lisinopril (ZESTRIL, PRINIVIL) 5 mg tablet Take 1 tablet by mouth once daily. Take with 10 mg lisinopril once daily Taking Yes DULoxetine (CYMBALTA) 60 mg capsule Take 1 capsule by mouth every morning. Taking Yes DULoxetine (CYMBALTA) 30 mg capsule Take 1 capsule by mouth daily at bedtime. Taking Yes albuterol HFA (PROVENTIL HFA, VENTOLIN HFA) 90 mcg/actuation inhaler Inhale 2 Puffs as instructed every 6 hours as needed for Wheezing/Shortness of Breath. Taking Yes risperiDONE (RISPERDAL) 3 mg tablet Take 1 tablet by mouth twice daily. Taking Yes triamcinolone (KENALOG) 0.025 % cream Apply 1 application to affected area twice daily. Patient taking differently: Apply 1 application to affected area twice daily. Uses as needed Taking Differently Yes cloNIDine HCl (CATAPRES) 0.1 mg tablet Takes 1 to 2 pills daily as needed. (per Mother) For anger Taking Yes gabapentin (NEURONTIN) 300 mg capsule Take 1 capsule by mouth twice daily. Taking Yes divalproex ER 500 mg 24 hr tablet Take 1,000 mg by mouth twice daily. Taking Yes polyethylene glycol 3350 (MIRALAX, GLYCOLAX) 17 gram/dose powder Use as directed for Miralax / Gatorade Bowel Prep Kit Bisacodyl (DULCOLAX) 5 mg tab Use as directed for Miralax / Gatorade Bowel Prep Kit CPAP Initiate Auto PAP @ 5-20 cm of water with humidification. Mask (per patient preference) optional chin strap (if indicated) , filters, tubing, humidifier and lifetime supplies. Patient not taking: Reported on 02/05/2022 Not Taking No medication comments found. ALLERGIES Allergen Reactions Seasonal Allergies Other: See Comments Objective PHYSICAL EXAM: General: alert and oriented (x3), healthy appearance and morbidly obese. Pertinent negatives noted - not distressed. Skin: normal color, no rash or lesions. HEENT: EOM intact and pupils equal round. Pertinent negatives noted - no carotid bruit. Cardiovascular: regular rate and rhythm, normal S1 and S2, no rub, murmurs, or gallop. Respiratory: normal breath sounds, no wheezes or crackles. No chest wall deformity or tenderness. Abdomen: soft. Pertinent negatives noted - not tender. Extremities: no deformity, no edema or tenderness, no joint swelling or clubbing. Neurological: normal cognition and motor skills. Gait normal. No weakness or sensory deficit. PAIN ASSESSMENT: VITALS: BP 140/82 Pulse 114 Temp (Src) 98.7 (Temporal) Resp 16 Ht 6' 2" (1.88m) Wt 384 lb (174.2kg) SpO2 96% BMI 49.28 kg/(m^2). Diagnostic tests reviewed for today's visit: Lab Value Units Date High Low HB No results within date range. HCT No results within date range. WBC No results within date range. PLT No results within date range. NA 140 mmol/L 12/07/2021 144 136 NA 135 mmol/L 09/09/2021 144 136 K 4.3 mmol/L 12/07/2021 5.1 3.7 K 4.5 mmol/L 09/09/2021 5.1 3.7 GLUC 140 mg/dL 09/09/2021 99 74 GLUC 113 mg/dL 12/07/2021 99 74 BUN 8 mg/dL 12/07/2021 24 9 BUN 10 mg/dL 09/09/2021 24 9 CREAT 0.56 mg/dL 09/09/2021 1.22 0.73 CREAT 0.48 mg/dL 12/07/2021 1.22 0.73 PTSEC No results within date range. INR No results within date range. APTT No results within date range. ALT 84 U/L 12/07/2021 54 10 ALT 74 U/L 09/09/2021 54 10 AST 81 U/L 12/07/2021 40 14 AST 82 U/L 09/09/2021 40 14 TBILI 0.3 mg/dL 12/07/2021 1.3 0.2 TBILI 0.2 mg/dL 09/09/2021 1.3 0.2 TSH No results within date range. Lab Value Units Date High Low HCGQT No results within date range. UHCG No results within date range. HCG, BODY* No results within date range. Lab Value Units Date High Low ABORHD No results within date range. ABSCREEN No results within date range. Hemoglobin A1C (%) Date Value 12/07/2021 6.5 03/19/2021 6.3 03/19/2021 6.3 07/20/2019 5.8 11/20/2018 5.5 11/20/2018 5.5 No results found for this or any previous visit (from the past 8760 hour(s)). No results found for this or any previous visit (from the past 52093 hour(s)). 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 Potter Activity Status Index: METS: Climb a flight of stairs or walk up a hill (5.50 METs) DASI Score: 5.5 Patient denies any chest pain or undue shortness of breath with the above physical activity. Clinical Frailty Scale: 4. Apparently vulnerable STOP-Bang Score: Snores loudly Has been observed to stop breathing or choking/gasping during sleep Has or is being treated for high blood pressure BMI greater than 35 kg/m^2 Has a large neck Male patient Denies feeling tired, fatigued, or sleepy during the daytime Patient 50 years old or younger STOP-Bang Score: 6 [id number] Score: Age: <65 Sex: male CHF history: No Hypertension history: Yes Stroke/TIA/thromboembolism history: No Vascular disease history: No Diabetes history: No [id number] Score: 1 ARISCAT Score: Age: <=50 Preoperative SpO2: >=96% Respiratory infection in the last month: No Preoperative anemia: No Surgical incision: peripheral Duration of surgery: <2 hrs Emergency procedure: No ARISCAT Score: 0 ASA Class: 3 ANESTHESIA FINDINGS: Intubation History: No history of difficult intubation Significant Anesthesia Considerations: none Airway History: No history of difficult airway I - PHYSICAL EVALUATION AIRWAY Tracheostomy tube not present Mallampati: III. TM distance: >3 FB. Neck ROM: full ROM without neurological symptoms. Mouth opening: adequate. Short neck: no. Thick neck: yes DENTAL Dental findings: teeth intact. Additional comments: Caps/back. II - ANESTHESIA PLAN ASA Score: 3 Anesthetic Plan: other Anesthetic plan additional comments: *PACC/TCI - anesthesia choice. Informed Consent Anesthetic risks, benefits, alternatives, personnel and consent discussed: yes. Patient / Responsible Republican agrees to proceed: yes Patient / Surrogate agrees to blood products: blood products not planned Prepared for Surgery: optimally prepared for surgery. CONSULTS: Patient does not require consults for optimization at this time Planned Anesthetic: other anesthesia choice The Following Tests/Procedures Have Been Initiated: No orders of the defined types were placed in this encounter. Instructions Given to Patient: Instructions located in the after visit summary. Patient given verbal and written preop instructions and voices comprehension and compliance. SIGNATURE: Alley Dee APRN.CNP PATIENT NAME: Niko Brooke DATE: February 05, 2022 TIME: 8:34 AM PAGER/CONTACT #: documented in this encounter [facility] 02-05-2022 Instructions Alley Dee APRN.CNP - 02/05/2022 8:33 AM EDT PATIENT PREOPERATIVE INSTRUCTIONS Jaret King MD has scheduled you for your procedure at this surgery center: [facility]: [phone] -- [address] [address]. Please read below carefully for your personalized instructions. Dietary Restrictions: - Follow bowel prep instructions: clear liquids need to be stopped 2 hours prior to schedule arrival at facility Medications: Unless instructed differently below, stay on all of your medications until your surgery. Approved medications to take the morning of surgery with a sip of water: All meds are okay except Lisinopril day of procedure If you start any new medications after today's visit, please contact the surgeon's office. Blood Thinning Medications: - Stop NSAIDS (Ibuprofen, Advil, Aleve, Motrin, Celebrex, Mobic, etc.) 7 days before surgery, as directed by your surgeon. - Stop Aspirin 7 days before surgery, as directed by your surgeon. - Stop Vitamin E, ALL multi-vitamins, herbals and dietary supplements 7 days before surgery. - You may take Tylenol (Acetaminophen) or any of your pain medications that do not contain aspirin or NSAIDS as needed. Important Reminders: - If you use CPAP/BIPAP, bring the machine with you to the surgery center. - If you are prescribed inhalers for breathing, continue using them. - Candy, mints, and tobacco products are NOT permitted the morning of surgery. - Hearing aids, dentures and glasses may be worn the morning of surgery. - NO jewelry, body piercings, makeup, hairpins or contacts are to be worn the day of surgery. If you develop symptoms such as a fever, cold, or flu, or have other changes to your health within TWO DAYS of scheduled surgery or the morning of surgery, please contact the surgery center above. Personal Belongings: -Please have photo ID and insurance cards. -If you do not have a copy of advance directives on file with us, please bring a copy with you on the day of surgery. - Leave ALL valuables and money at home or with family members. For Outpatient Procedures: - YOU MUST HAVE A RESPONSIBLE CENTER CONSULTANT TAKE YOU HOME. A AUTO DAMAGE INSURANCE APPRAISER OR INJECTION OPERATOR CANNOT BE MADE A RESPONSIBLE CENTER CONSULTANT. - We recommend that a responsible person stays with you overnight to take care of you. - You cannot stay in a hotel alone after outpatient surgery. You will not be permitted to have your surgery, if you do not have someone to take care of you. Arrival Time for Surgery: - The Surgery Center or hospital where you are having surgery will call the afternoon before surgery (or Thursday for Thursday surgery) with a scheduled arrival time. - If you have not heard by 4 pm, please contact the surgery center above. Please be aware that emergency situations arise, which may delay or change your surgical time. If this happens, we will notify you as soon as possible and regret any inconvenience. If you already have an Advance Directive, please fax a copy to [phone] or email to for it to be added to your chart. If you do not have an Advance Directive, you can find the appropriate form and more information at [email or web address]. We recommend that you complete the Advance Directive form found on the website and bring it with you the day of your surgery. It can be witnessed and scanned into your chart that day. Alley Dee APRN.RADHA documented in this encounter [facility] 12-13-2021 History of Presen t illness Narrative [facility] DME ISSUE NOTE Patient identified by name and date: Yes Subjective: Niko Brooke is a 31 year old male seen today for fitting and pick up driver of custom foot orthotics. Equipment Owned: ineffective custom foot orthotics DME Delivery: Pt was educated on wear schedule and care of custom foot orthotics. Pt was educated on the option of having orthotics refurbished as needed in the future as long as shell is performing it's intended function well. Pt was educated on approximate cost of refurbishing orthotics and an approximate time frame when this might be necessary. Pt was urged to follow the wear schedule and to call with any questions or concerns. Pt was instructed to start with wearing orthotics one hour the first day and then to add one hour of wear time per day until multimedia educational specialist wear is achieved. Pt was educated on how to remove insoles from shoes and then place orthotics in shoes. The fit of orthotics was assessed with pt standing, with and without shoes. The comfort of orthotics was assessed with pt standing and walking with orthotics in shoes. Pt denied any rubbing or pinching and felt that fit of custom orthotics was correct. Contact information for this therapist was provided to patient. Custom biomechanical foot orthotics with serial number: #[id number] were issued to patient and proof of receipt form signed by pt and therapist. All specifications for custom foot orthotics can be found in orthotic evaluation visit note. Planned Interventions: Follow up as needed for brace fitting/issues. Billing:[facility]: Equipment: [id number] pair of custom foot orthotics No charge for time. Total time: 15 minutes Pavan Hampton PT documented in this encounter [facility] 12-03-2021 Instructions Roseanna Ross APRN.CNP - 12/03/2021 9:32 AM EDT Your procedure will be with at [place] Follow the provided instructions for colonoscopy. You will be using Miralax as the laxative during the preparation. You may start the laxative as early as 1:00 in the afternoon. The endoscopy staff will call you the day before the procedure with specific on arrival time. (Thursday for Thursday procedures). Start omeprazole 20mg daily on empty stomach and wait 30 min before eating Avoid NSAIDs (such as Advil, Ibuprofen, Excedrin, Mobic), tobacco, alcohol, carbonated beverages, caffeine, chocolate, tomato based sauces, spicy/fatty foods, and peppermint Avoid eating large meals. Avoid eating less than 3 hours before bed. Weight loss. Elevate the head of the bed 6 inches, or at least invest in a wedge pillow. documented in this encounter [facility] 12-03-2021 History of Presen t illness Narrative CHIEF COMPLAINT: Patient presents with: GERD Outpatient Colonoscopy: due to family history of colon cancer This consult was requested by Sarah Herrmann APRN.CNS for an opinion regarding colon cancer screening. My final recommendations will be communicated to the requesting health care provider by way of the shared medical record for internal providers or letter via the [employer] [place] [employer] for external providers. Niko Brooke is a 31 year old male with a past medical history asthma, depression, spinal stenosis status, encopresis, attention deficit nonhyperactive, excessive anger, DWIGHT on CPAP, HTN. Who presents for colon cancer screening. Patient has a family history of father diagnosed with colon cancer sometime in his 50s, mother has a history large adenoma polyp, brother has a history of colon polyps, maternal grandmother diagnosed with colon cancer and paternal grandfather diagnosed with colon cancer. HPI: Patient presents today with mother. Here to be evaluated for colon cancer screening has a significant family history of colon colon cancer and colon polyps. ( SEE ABOVE). The patient denies change in bowel habits, rectal bleeding or abdominal pain. Having a bowel movement daily or every other day. Patient reports constipation. Patient reports weekly constipation. Patient denies taking anything for constipation. Patient reports he does not drink enough water. Patient reports he is having acid reflux daily - denies taking anything for it. He reports at times food getting stuck like dry foods and at times chokes on liquid. Patient reports he feels full fast 1 week. Denies nausea or vomiting Usually has dinner: 5-6pm Evening snack: eats before he goes to bed - peanut butter, juice, donut, cottage cheese. Bedtime medications: yes Heads to bed: 8-10pm Sleeps in a regular bed with the head of the bed 1 pillow. Record Review: [facility] / Outside records reviewed. PAST MEDICAL HISTORY Diagnosis Date Asthma 03/05/2010 ATTN DEFICIT NONHYPERACT 04/18/2006 Congenital pes planus 09/27/2010 DEPRESSIVE DISORDER NEC 04/18/2006 Encopresis 12/15/2014 Enuresis 12/15/2014 Excessive anger 07/14/2012 followed by psychiatry Family history of colon cancer Maternal Grandmother was 33years old when diagnosed and from colon cancer (will need colonoscopy at 28years old for screeening) Mental retardation, moderate (I.Q. 35-49) 10/12/2007 Obesity 12/15/2014 S/P lumbar laminectomy 09/2019 Dr. Weinstein Spinal stenosis of lumbar region with neurogenic claudication 05/10/2019 PAST SURGICAL HISTORY Procedure Laterality Date CIRCUMCISION LAMINECTOMY,LUMBAR 09/2019 L3,4,5 Dr. Weinstein TONSILLECTOMY & ADENOIDECTOMY <AGE 14 Allergies: ALLERGIES Allergen Reactions Seasonal Allergies Other: See Comments Medications: MAGNESIUM CARBONATE ORAL Take 1 tablet by mouth. lisinopril (ZESTRIL, PRINIVIL) 10 mg tablet Take 1 tablet by mouth once daily. Take with 5 mg lisinopril once daily lisinopril (ZESTRIL, PRINIVIL) 5 mg tablet Take 1 tablet by mouth once daily. Take with 10 mg lisinopril once daily DULoxetine (CYMBALTA) 60 mg capsule Take 1 capsule by mouth every morning. DULoxetine (CYMBALTA) 30 mg capsule Take 1 capsule by mouth daily at bedtime. albuterol HFA (PROVENTIL HFA, VENTOLIN HFA) 90 mcg/actuation inhaler Inhale 2 Puffs as instructed every 6 hours as needed for Wheezing/Shortness of Breath. risperiDONE (RISPERDAL) 3 mg tablet Take 1 tablet by mouth twice daily. triamcinolone (KENALOG) 0.025 % cream Apply 1 application to affected area twice daily. cloNIDine HCl (CATAPRES) 0.1 mg tablet Takes 1 to 2 pills daily as needed. (per Mother) For anger gabapentin (NEURONTIN) 300 mg capsule Take 1 capsule by mouth twice daily. divalproex ER 500 mg 24 hr tablet Take 1,000 mg by mouth twice daily. polyethylene glycol 3350 (MIRALAX, GLYCOLAX) 17 gram/dose powder Use as directed for Miralax / Gatorade Bowel Prep Kit Bisacodyl (DULCOLAX) 5 mg tab Use as directed for Miralax / Gatorade Bowel Prep Kit omeprazole (PRILOSEC) 20 mg capsule Take 1 capsule by mouth once daily. CPAP Initiate Auto PAP @ 5-20 cm of water with humidification. Mask (per patient preference) optional chin strap (if indicated) , filters, tubing, humidifier and lifetime supplies. naproxen (NAPROSYN) 500 mg tablet Take 1 tablet by mouth twice daily as needed. FAMILY HISTORY Problem Relation Age of Onset Colon Polyps Mother large polyp other (Hypothyroidism [Other]) Mother Colon Cancer Father 50's Diabetes Father Hypertension Father Cancer Father Colon Colon Polyps Brother Colon Cancer Maternal Grandmother 34 Cancer Maternal Grandmother from breast and uterine cancer Diabetes Maternal Grandfather Colon Cancer Paternal Grandfather late 60's Cancer Paternal Grandfather from Colon Cancer Employer And Job Title: None on file Years Of Education Completed: Not specified Marital Status: Single Social History Tobacco Use Smoking status: Never Smoker Smokeless tobacco: Never Used Substance Use Topics Alcohol use: No Drug use: No Review of Systems: Review of Systems Respiratory: Positive for shortness of breath. Cardiovascular: Positive for leg swelling. All other systems reviewed and are negative. Are you taking any blood thinners? No Physical Examination: BP 132/80 Pulse 102 Ht 6' 1.228" (1.86m) Wt 393 lb (178.3kg) SpO2 96% BMI 51.53 kg/(m^2). Physical Exam Constitutional: Appearance: Normal appearance. He is normal weight. HENT: Head: Normocephalic and atraumatic. Eyes: Extraocular Movements: Extraocular movements intact. Pupils: Pupils are equal, round, and reactive to light. Cardiovascular: Rate and Rhythm: Normal rate and regular rhythm. Pulses: Normal pulses. Heart sounds: Normal heart sounds. Pulmonary: Effort: Pulmonary effort is normal. Breath sounds: Normal breath sounds. Abdominal: General: Abdomen is flat. Bowel sounds are normal. Palpations: Abdomen is soft. Musculoskeletal: General: Normal range of motion. Cervical back: Normal range of motion and neck supple. Skin: General: Skin is warm and dry. Neurological: General: No focal deficit present. Mental Status: He is alert and oriented to person, place, and time. Psychiatric: Mood and Affect: Mood normal. Behavior: Behavior normal. ASSESSMENT: Family history of colon cancer Colon cancer screening Family history of colon cancer in father (primary encounter diagnosis) Dysphagia, unspecified type PLAN: Assessment/Plan (Z80.0) Family history of colon cancer in father (primary encounter diagnosis) (Z80.0) Family history of colon cancer (Z12.11) Colon cancer screening (R13.10) Dysphagia, unspecified type 1. Family history of colon cancer Patient has a family history of father diagnosed with colon cancer sometime in his 50s, mother has a history large adenoma polyp, brother has a history of colon polyps, maternal grandmother diagnosed with colon cancer and paternal grandfather diagnosed with colon cancer. - CONSULT TO GASTROENTEROLOGY - polyethylene glycol 3350 (MIRALAX, GLYCOLAX) 17 gram/dose powder; Use as directed for Miralax / Gatorade Bowel Prep Kit Dispense: 238 g; Refill: 0 - Bisacodyl (DULCOLAX) 5 mg tab; Use as directed for Miralax / Gatorade Bowel Prep Kit Dispense: 4 tablet; Refill: 0 - COLONOSCOPY SCREENING; Future 2. Colon cancer screening - CONSULT TO GASTROENTEROLOGY - polyethylene glycol 3350 (MIRALAX, GLYCOLAX) 17 gram/dose powder; Use as directed for Miralax / Gatorade Bowel Prep Kit Dispense: 238 g; Refill: 0 - Bisacodyl (DULCOLAX) 5 mg tab; Use as directed for Miralax / Gatorade Bowel Prep Kit Dispense: 4 tablet; Refill: 0 - COLONOSCOPY SCREENING; Future 3. Family history of colon cancer in father - polyethylene glycol 3350 (MIRALAX, GLYCOLAX) 17 gram/dose powder; Use as directed for Miralax / Gatorade Bowel Prep Kit Dispense: 238 g; Refill: 0 - Bisacodyl (DULCOLAX) 5 mg tab; Use as directed for Miralax / Gatorade Bowel Prep Kit Dispense: 4 tablet; Refill: 0 - COLONOSCOPY SCREENING; Future 4. Dysphagia, unspecified type -Patient reports having daily acid reflux symptoms with choking on solids and liquids at times. Currently is not taking any medication for symptoms will start on omeprazole 20 mg once daily on empty stomach. Discussed in detail GERD lifestyle changes. Recommend EGD with esophageal biopsies - EGD DIAGNOSTIC; Future Follow up in office 3 months/PRN. Recommended to please call office/go to ER if fever, chills, chest pain, SOB, diarrhea, nausea, emesis, worsening abdominal pain, dehydration occurs I spent 30 minutes in the visit, with more than 50% of the total [id number]-bw-[id number] time of the visit in counseling / coordination of care. I have confirmed and edited as necessary, the PFSH and ROS obtained by others. Roseanna Ross APRN.CNP DATE: 12/03/21 TIME: 8:20 AM documented in this encounter [facility] 09-27-2010 History of Past i llness Narrative Problem Noted Date Resolved Date Tendonitis 09/27/2010 07/14/2012 Sprain of foot, unspecified site 09/27/2010 07/14/2012 documented as of this encounter (statuses as of 12/03/2021) [facility]02-[facility]-2011 History of Past illness Narrative* Problem Noted Date Resolved Date Tendonitis 09/27/2010 07/14/2012 Sprain of foot, unspecified site 09/27/2010 07/14/2012 documented as of this encounter (statuses as of 12/13/2021) [facility]2011 History of Past illness Narrative* Problem Noted Date Resolved Date Tendonitis 09/27/2010 07/14/2012 Sprain of foot, unspecified site 09/27/2010 07/14/2012 documented as of this encounter (statuses as of 02/05/2022) [facility] History of Past illness Narrative* Problem Noted Date Resolved Date Tendonitis 09/27/2010 07/14/2012 Sprain of foot, unspecified site 09/27/2010 07/14/2012 documented as of this encounter (statuses as of 02/11/2022) [facility] History of Past illness Narrative* Problem Noted Date Resolved Date Tendonitis 09/27/2010 07/14/2012 Sprain of foot, unspecified site 09/27/2010 07/14/2012 documented as of this encounter (statuses as of 03/06/2022) [facility] History of Past illness Narrative* Problem Noted Date Resolved Date Tendonitis 09/27/2010 07/14/2012 Sprain of foot, unspecified site 09/27/2010 07/14/2012 documented as of this encounter (statuses as of 03/13/2022) [facility] History of Past illness Narrative* Problem Noted Date Resolved Date Tendonitis 09/27/2010 07/14/2012 Sprain of foot, unspecified site 09/27/2010 07/14/2012 documented as of this encounter (statuses as of 04/23/2022) [facility] History of Past illness Narrative* Problem Noted Date Resolved Date Tendonitis 09/27/2010 07/14/2012 Sprain of foot, unspecified site 09/27/2010 07/14/2012 documented as of this encounter (statuses as of 04/25/2022) [facility] History of Past illness Narrative* Problem Noted Date Resolved Date Tendonitis 09/27/2010 07/14/2012 Sprain of foot, unspecified site 09/27/2010 07/14/2012 documented as of this encounter (statuses as of 04/29/2022) [address]04-2011 History of Past illness Narrative* Problem Noted Date Resolved Date Tendonitis 09/27/2010 07/14/2012 Sprain of foot, unspecified site 09/27/2010 07/14/2012 documented as of this encounter (statuses as of 05/01/2022) [address]04-2011 History of Past illness Narrative* Problem Noted Date Resolved Date Tendonitis 09/27/2010 07/14/2012 Sprain of foot, unspecified site 09/27/2010 07/14/2012 documented as of this encounter (statuses as of 06/20/2022) [address]04-2011 History of Past illness Narrative* Problem Noted Date Resolved Date Tendonitis 09/27/2010 07/14/2012 Sprain of foot, unspecified site 09/27/2010 07/14/2012 documented as of this encounter (statuses as of 06/27/2022) [facility] History of Past illness Narrative* Problem Noted Date Resolved Date Tendonitis 09/27/2010 07/14/2012 Sprain of foot, unspecified site 09/27/2010 07/14/2012 documented as of this encounter (statuses as of 07/22/2022) [address]04-2011 History of Past illness Narrative* Problem Noted Date Resolved Date Tendonitis 09/27/2010 07/14/2012 Sprain of foot, unspecified site 09/27/2010 07/14/2012 documented as of this encounter (statuses as of 07/25/2022) [address]-2011 History of Past illness Narrative* Problem Noted Date Resolved Date Tendonitis 09/27/2010 07/14/2012 Sprain of foot, unspecified site 09/27/2010 07/14/2012 documented as of this encounter (statuses as of 09/17/2022) [address]-2011 History of Past illness Narrative* Problem Noted Date Resolved Date Tendonitis 09/27/2010 07/14/2012 Sprain of foot, unspecified site 09/27/2010 07/14/2012 documented as of this encounter (statuses as of 09/26/2022) [facility] History of Past illness Narrative* Problem Noted Date Resolved Date Tendonitis 09/27/2010 07/14/2012 Sprain of foot, unspecified site 09/27/2010 07/14/2012 documented as of this encounter (statuses as of 10/03/2022) [facility] History of Past illness Narrative* Problem Noted Date Resolved Date Tendonitis 09/27/2010 07/14/2012 Sprain of foot, unspecified site 09/27/2010 07/14/2012 documented as of this encounter (statuses as of 11/18/2022) [facility] History of Past illness Narrative* Problem Noted Date Resolved Date Tendonitis 09/27/2010 07/14/2012 Sprain of foot, unspecified site 09/27/2010 07/14/2012 documented as of this encounter (statuses as of 11/18/2022) [facility] History of Past illness Narrative* Problem Noted Date Resolved Date Tendonitis 09/27/2010 07/14/2012 Sprain of foot, unspecified site 09/27/2010 07/14/2012 documented as of this encounter (statuses as of 12/01/2022) [facility] History of Past illness Narrative* Problem Noted Date Resolved Date Tendonitis 09/27/2010 07/14/2012 Sprain of foot, unspecified site 09/27/2010 07/14/2012 documented as of this encounter (statuses as of 12/05/2022) [facility] History of Past illness Narrative* Problem Noted Date Resolved Date Tendonitis 09/27/2010 07/14/2012 Sprain of foot, unspecified site 09/27/2010 07/14/2012 documented as of this encounter (statuses as of 12/18/2022) [facility] History of Past illness Narrative* Problem Noted Date Resolved Date Tendonitis 09/27/2010 07/14/2012 Sprain of foot, unspecified site 09/27/2010 07/14/2012 documented as of this encounter (statuses as of 12/26/2022) [facility] History of Past illness Narrative* Problem Noted Date Resolved Date Tendonitis 09/27/2010 07/14/2012 Sprain of foot, unspecified site 09/27/2010 07/14/2012 documented as of this encounter (statuses as of 12/31/2022) [facility] History of Past illness Narrative* Problem Noted Date Resolved Date Tendonitis 09/27/2010 07/14/2012 Sprain of foot, unspecified site 09/27/2010 07/14/2012 documented as of this encounter (statuses as of 02/14/2023) [facility] History of Past illness Narrative* Problem Noted Date Diagnosed Date Resolved Date Tendonitis 09/27/2010 07/14/2012 Sprain of foot, unspecified site 09/27/2010 07/14/2012 documented as of this encounter (statuses as of 05/23/2023) [facility] History of Past illness Narrative* Problem Noted Date Diagnosed Date Resolved Date Tendonitis 09/27/2010 07/14/2012 Sprain of foot, unspecified site 09/27/2010 07/14/2012 documented as of this encounter (statuses as of 07/15/2023) [facility] History of Past illness Narrative* Problem Noted Date Diagnosed Date Resolved Date Tendonitis 09/27/2010 07/14/2012 Sprain of foot, unspecified site 09/27/2010 07/14/2012 documented as of this encounter (statuses as of 09/25/2023) [facility] History of Past illness Narrative* Problem Noted Date Diagnosed Date Resolved Date Tendonitis 09/27/2010 07/14/2012 Sprain of foot, unspecified site 09/27/2010 07/14/2012 documented as of this encounter (statuses as of 09/28/2023) [facility] History of Past illness Narrative* Problem Noted Date Diagnosed Date Resolved Date Tendonitis 09/27/2010 07/14/2012 Sprain of foot, unspecified site 09/27/2010 07/14/2012 documented as of this encounter (statuses as of 10/12/2023) [facility] History of Past illness Narrative* Problem Noted Date Diagnosed Date Resolved Date Tendonitis 09/27/2010 07/14/2012 Sprain of foot, unspecified site 09/27/2010 07/14/2012 documented as of this encounter (statuses as of 10/23/2023) [facility] History of Past illness Narrative* Problem Noted Date Diagnosed Date Resolved Date Tendonitis 09/27/2010 07/14/2012 Sprain of foot, unspecified site 09/27/2010 07/14/2012 documented as of this encounter (statuses as of 11/06/2023) [facility] Mccloud [facility] September 16, 2022 11:19am Note Date/Time September 16, 2022 1 0:07am [facility] Medical Records Department [address] [place] [address] Emergency Department Summary 09/16/22 MR#: [id number] Acct: [id number] Name: NIKO BROOKE Rep #:[id number] : 1990 32 From: Cuco Mccloud MD PCP: Dr. Hector Currie MD Status:RE G ER Location: ED HPI History of Present Illness Chief Complaint: Chest Pain Informant: patient and parent Onset/Context/Timing Onset: Yesterday Activity at onset: activity on onset (Lying supine ready to go to sleep) Timing: Continuous Quality: Positive for Aching and Tightness Location: Substernal Current Severity: Moderate Maximum Severity: Moderate Worsened By: Movement of Torso and Breathing ("a little") Relieved By: - (sitting up) Associated Symptoms: Positive for Dyspnea; Negative for Nausea, Vomiting, Diaphoresis, Cough, Fever, Lightheadedness or Palpitations Narrative Narrative: 32-year-old male started having central chest discomfort last night. He states he is a little short of breath. He states he has a history of asthma. He agrees that his chest feels tight. Mom brings him in because "all my kids are big boys, he has high blood pressure, and his grandfather had a heart attack Garima was concerned he was having one." CVD Risk Factors: Positive for Hypertension; Negative for Diabetes, Hypercholesterolemia, Family History 1' </=55 or Smoking PE Risk Factors: Negative for Recent Travel/Surgery, Recent Immobilization, Prior DVT or PE (Both legs chronically swollen, with the right chronically worsethan the left), Cancer or OCP + Smoking + >/=35 PFSH PFSH Medical History HTN (hypertension) Home Medications citalopram 40 mg tablet 40 mg PO DAILY 02/08/16 [History Last Taken Unknown] clonidine HCl 0.1 mg tablet 0.1 mg PO DAILY PRN Anxiety 02/08/16 [History Last Taken Unknown] divalproex 500 mg tablet,delayed release (Depakote) 500 mg PO BID 02/08/16 [History Last Taken Unknown] gabapentin 100 mg capsule 200 mg PO TIDCM 02/08/16 [History Last Taken Unknown] loratadine 10 mg tablet (Allergy Relief (loratadine)) 10 mg PO DAILY 02/08/16 [History Last Taken Unknown] risperidone 3 mg tablet (Risperdal) 3 mg PO DAILY 02/08/16 [History Last Taken Unknown] tramadol 50 mg tablet 50 mg PO TID 02/08/16 [History Last Taken Unknown] lisinopril 10 mg tablet 10 mg PO DAILY 07/11/21 [History Last Taken Unknown] Allergy/AdvReac Type Severity Reaction Status Date / Time No Known Allergies Allergy Verified 09/16/22 08:47 Surgical History H/O laminectomy h/o tonsilectomy Social History Smoking Status: Never smoker ROS ROS ED Constitutional Constitutional ED: Denies chills or fever(s) Eyes Eyes: Denies change in vision or diplopia ENT ENT ED: Denies rhinorrhea or sore throat Cardiovascular Cardiovascular: Reports chest pain and leg edema; Denies palpitations Respiratory/Chest Respiratory/Chest: Reports dyspnea; Denies cough Gastrointestinal Gastrointestinal: Denies abdominal pain, diarrhea, nausea or vomiting Genitourinary Genitourinary ED: Denies dysuria or hematuria Musculoskeletal Musculoskeletal: Denies back pain or neck pain Integumentary Denies abscess or rash Neurologic Neurologic: Denies headache(s), paresthesias or weakness Psychiatric Psychiatric: Denies anxiety or suicidal thoughts EXAM Physical Exam Const Vital Signs: 09/16/22 08:45 09/16/22 09:03 09/16/22 09:50 Temperature 97.5 F L Temperature Source Temporal Pulse Rate 102 H 93 110 H Respiratory Rate 20 H 18 22 H Respiratory Pattern Tachypnea Blood Pressure 154/92 H Blood Pressure Mean 112 Pulse Ox 97 96 Oxygen Delivery Method Room Air Room Air Positive well nourished and well developed General Appearance ED: well developed and NAD HEENT Reports moist mucous membranes normocephalic and atraumatic Eyes PERRL and EOMs intact bilaterally Neck full ROM and supple Resp normal respiratory effort and clear to auscultation bilaterally Cardio regular rate, regular rhythm and no murmurs GI non-tender and non-distended Auscultation: normoactive bowel sounds Palpation: soft Back/Spine no CVA tenderness General Back: other FROM Extremity normal to inspection General Extremety ED: Negative for edema, pulses abnormal or tenderness General Extremity: Negative for edema or pulses abnormal Neuro oriented x3, CN's II-XII intact bilaterally and no sensory deficits noted Sensorium / Orientation: awake and alert Motor Exam: strength 5/5 throughout Skin no rashes or lesions noted and no wounds MDM MDM MDM Narrative Medical decision making narrative: EKG is normal, 2 view chest x-ray obtained is normal on my interpretation, radiology in agreement. Initially gave the patient an albuterol aerosol he said it helped a little, considering reactive airway and the differential here for his discomfort. I then given a GI cocktail and I took the pain away. Discussing the possibility of recurrent symptoms, and my recommendation to take an H2 gilda or PPI daily for 1 to 2 weeks, mom states he is already on that because he has already been diagnosed with reflux which was unbeknownst to me until thistime. This makes it more likely to be the etiology of his symptoms especially given the history. I think it is less likely to be PE based on symptoms and history and lack of risk factors, we did do an ultrasound of his asymmetrically swollen right lower extremity, it is negative for DVT which makes PE even less likely here. Discussed all this with mom and patient they are comfortable discharge home and follow-up as needed. Radiography Diagnostic Testing: Clinical Impression(s) from Imaging Studies Chest X-Ray 09/16/22 09:18 IMPRESSION: No acute abnormality is seen. Electronically Signed: Reagan Bentley MD at 10:37 EST , Rhythm Strip Rhythm Strip: Sinus Rhythm Rate: 100 Ectopy: None EKG Initial EKG: Attestation: I personally reviewed and interpreted this EKG as follows: Interpretation: Sinus Rhythm and No Acute Injury Pattern Comments: Normal EKG Discharge Plan Triage Chief Complaint: Chest Pain ED Provider: Cuco Mccloud Dx/Rx/DC Orders Clinical Impression: Chest pain due to gastrointestinal reflux disease, Edema of right lower extremity Instructions: ED GERD (Adult) Prescriptions: No Action clonidine HCl 0.1 MG tablet 0.1 mg PO DAILY PRN (Reason: Anxiety) citalopram 40 MG tablet 40 mg PO DAILY divalproex [Depakote] 500 MG tablet,delayed release (DR/EC) 500 mg PO BID tramadol 50 MG tablet 50 mg PO TID risperidone [Risperdal] 3 MG tablet 3 mg PO DAILY gabapentin 100 MG capsule 200 mg PO TIDCM loratadine [Allergy Relief (loratadine)] 10 MG tablet 10 mg PO DAILY lisinopril 10 mg tablet 10 mg PO DAILY Label Comments: TAKE 1 & 1/2 (ONE AND ONE-HALF) TABLETS BY MOUTH DAILY Primary Care Provider: Hector Currie Referrals: Hector Currie MD [Primary Care Provider] - 3-5 Days if not improving Disposition Disposition: Home, Self Care What to do if you have Problems For any increased pain, shortness of breath, bleeding, nausea or vomiting, chestpain, or any unexpected problems, contact your Primary Care Provider. Call [facility] ([phone]) or report to the closest Emergency Room. Call 911 if necessary. 09/16/22 1119 <Electronically signed by Cuco Mccloud MD> Cosigner Signature (if applicable): CC: Dr. Hector Currie MD ~ Signed [facility] Work Phone: Evaluation note* Diagnosis Family history of colon cancer in father- Primary Family history of colon cancer Family history of malignant neoplasm of gastrointestinal tract Colon cancer screening Special screening for malignant neoplasms, colon Dysphagia, unspecified type [facility] Diagnosis Congenital pes planus, unspecified laterality- Primary [facility] Diagnosis Pre-operative examination- Primary Preoperative examination, unspecified Colon cancer screening Special screening for malignant neoplasms, colon Family history of colon cancer Family history of malignant neoplasm of gastrointestinal tract Mild intermittent asthma without complication Unspecified asthma Attention deficit disorder (ADD) without hyperactivity Essential hypertension Unspecified essential hypertension Hereditary and idiopathic peripheral neuropathy Unspecified hereditary and idiopathic peripheral neuropathy 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 Diagnosis Family history of colon cancer Family history of malignant neoplasm of gastrointestinal tract Colon cancer screening Special screening for malignant neoplasms, colon Family history of colon cancer in father Dysphagia, unspecified type [facility] Diagnosis Bilateral lower extremity edema- Primary Edema SOB (shortness of breath) on exertion Shortness of breath documented in this encounter [facility] note* Diagnosis SOB (shortness of breath) on exertion- Primary Shortness of breath [facility] noteNo assessment information availableWMetro[facility] Work Phone: Evaluation note* Diagnosis Foot pain, right- Primary Pain in limb documented in this encounter [facility] note* Diagnosis BAJWA (dyspnea on exertion)- Primary Other dyspnea and respiratory abnormality Essential hypertension Unspecified essential hypertension Class 3 severe obesity due to excess calories with body mass index (BMI) of 45.0 to 49.9 in adult, unspecified whether serious comorbidity present (HCC) Mild intermittent asthma without complication Unspecified asthma Encounter for immunization Need for other specified prophylactic vaccination against single bacterial disease Reactive depression Dysthymic disorder [facility]* Diagnosis Essential hypertension- Primary Unspecified essential hypertension Elevated glucose Other abnormal glucose IFG (impaired fasting glucose) Impaired fasting glucose Elevated LDL cholesterol level Pure hypercholesterolemia Encounter for long-term current use of medication [facility]* Diagnosis Essential hypertension- Primary Unspecified essential hypertension Encounter for immunization Need for other specified prophylactic vaccination against single bacterial disease Reactive depression Dysthymic disorder 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 DWIGHT (obstructive sleep apnea) Obstructive sleep apnea (adult) (pediatric) Gastroesophageal reflux disease, unspecified whether esophagitis present Class 3 severe obesity without serious comorbidity with body mass index (BMI) of 45.0 to 49.9 in adult, unspecified obesity type (HCC) IFG (impaired fasting glucose) Impaired fasting glucose Hypertension, unspecified type Spinal stenosis of lumbar region with neurogenic claudication Spinal stenosis, lumbar region, with neurogenic claudication Mild intermittent asthma without complication Unspecified asthma Weight gain Abnormal weight gain Primary hypertension Unspecified essential hypertension [facility]* Diagnosis Gastroesophageal reflux disease, unspecified whether esophagitis present- Primary Atypical chest pain Other chest pain Class 3 severe obesity due to excess calories with body mass index (BMI) of 45.0 to 49.9 in adult, unspecified whether serious comorbidity present (HCC) [facility]* Diagnosis Excessive cerumen in ear canal, right- Primary Impacted cerumen of left ear Impacted cerumen documented in this encounter [facility] note* Diagnosis Class 3 severe obesity without serious comorbidity with body mass index (BMI) of 45.0 to 49.9 in adult, unspecified obesity type (HCC)- Primary Prediabetes Other abnormal glucose Primary hypertension Unspecified essential hypertension DWIGHT (obstructive sleep apnea) Obstructive sleep apnea (adult) (pediatric) Gastroesophageal reflux disease, unspecified whether esophagitis present documented [facility]* Diagnosis URI, acute- Primary Acute upper respiratory infections of unspecified site Exposure to confirmed case of COVID-19 documented in this encounter [facility] note* Diagnosis Primary hypertension- Primary Unspecified essential hypertension Class 3 severe obesity without serious comorbidity with body mass index (BMI) of 45.0 to 49.9 in adult, unspecified obesity type (HCC) DWIGHT (obstructive sleep apnea) Obstructive sleep apnea (adult) (pediatric) Prediabetes Other abnormal glucose Encounter for immunization Need for other specified prophylactic vaccination against single bacterial disease IFG (impaired fasting glucose) Impaired fasting glucose [facility]* Diagnosis Puncture wound of left foot with foreign body, initial encounter- Primary documented in this encounter [facility] note* Diagnosis Class 3 severe obesity without serious comorbidity with body mass index (BMI) of 45.0 to 49.9 in adult, unspecified obesity type (HCC)- Primary Prediabetes Other abnormal glucose [facility]* Diagnosis Acute left ankle pain- Primary Foot pain, left Pain in limb documented [facility]* Diagnosis Toothache- Primary Unspecified disorder of the teeth and supporting structures documented [facility]* Diagnosis Financial difficulty- Primary Inadequate material resources [facility]* Diagnosis Class 3 severe obesity without serious comorbidity with body mass index (BMI) of 45.0 to 49.9 in adult, unspecified obesity type (HCC)- Primary Controlled type 2 diabetes mellitus without complication, without long-term current use of insulin (HCC) documented [facility]* Diagnosis URI, acute- Primary Acute upper respiratory infections of unspecified site Acute cough [facility]* Diagnosis Controlled type 2 diabetes mellitus without complication, without long-term current use of insulin (HCC)- Primary Rash Rash and other nonspecific skin eruption Class 3 severe obesity due to excess calories with body mass index (BMI) of 45.0 to 49.9 in adult, unspecified whether serious comorbidity present (HCC) History of RSV infection Personal history of other infectious and parasitic disease documented [facility]* Diagnosis Controlled type 2 diabetes mellitus without complication, without long-term current use of insulin (HCC)- Primary documented [facility]* Diagnosis On senior living drug therapy- Primary [facility]* Diagnosis Controlled type 2 diabetes mellitus without complication, without long-term current use of insulin (HCC)- Primary Class 3 severe obesity without serious comorbidity with body mass index (BMI) of 45.0 to 49.9 in adult, unspecified obesity type (HCC) Primary hypertension Unspecified essential hypertension Rash Rash and other nonspecific skin eruption DWIGHT (obstructive sleep apnea) Obstructive sleep apnea (adult) (pediatric) documented 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 DWIGHT (obstructive sleep apnea) Obstructive sleep apnea (adult) (pediatric) Reactive depression Dysthymic disorder S/P lumbar laminectomy Other postprocedural status Gastroesophageal reflux disease, unspecified whether esophagitis present Prediabetes Other abnormal glucose Obesity, Class III, BMI 40-49.9 (morbid obesity) (HCC) Morbid obesity URI, acute Acute upper respiratory infections of unspecified site Acute cough [facility]* Diagnosis Pre-operative examination- Primary Preoperative examination, unspecified Colon cancer screening Special screening for malignant neoplasms, colon Family history of colon cancer Family history of malignant neoplasm of gastrointestinal tract Mild intermittent asthma without complication Unspecified asthma Attention deficit disorder (ADD) without hyperactivity Essential hypertension Unspecified essential hypertension Hereditary and idiopathic peripheral neuropathy Unspecified hereditary and idiopathic peripheral neuropathy 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 DWIGHT (obstructive sleep apnea) Obstructive sleep apnea (adult) (pediatric) Reactive depression Dysthymic disorder S/P lumbar laminectomy Other postprocedural status Gastroesophageal reflux disease, unspecified whether esophagitis present Prediabetes Other abnormal glucose Obesity, Class III, BMI 40-49.9 (morbid obesity) (HCC) Morbid obesity Foot pain, right Pain in limb documented [facility]* Diagnosis Pre-operative examination- Primary Preoperative examination, unspecified Colon cancer screening Special screening for malignant neoplasms, colon Family history of colon cancer Family history of malignant neoplasm of gastrointestinal tract Mild intermittent asthma without complication Unspecified asthma Attention deficit disorder (ADD) without hyperactivity Essential hypertension Unspecified essential hypertension Hereditary and idiopathic peripheral neuropathy Unspecified hereditary and idiopathic peripheral neuropathy 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 DWIGHT (obstructive sleep apnea) Obstructive sleep apnea (adult) (pediatric) Reactive depression Dysthymic disorder S/P lumbar laminectomy Other postprocedural status Gastroesophageal reflux disease, unspecified whether esophagitis present Prediabetes Other abnormal glucose Obesity, Class III, BMI 40-49.9 (morbid obesity) (HCC) Morbid obesity DWIGHT (obstructive sleep apnea)- Primary Obstructive sleep apnea (adult) (pediatric) Class 3 severe obesity due to excess calories with body mass index (BMI) of 40.0 to 44.9 in adult, unspecified whether serious comorbidity present (HCC) documented [facility]* Diagnosis Pre-operative examination- Primary Preoperative examination, unspecified Colon cancer screening Special screening for malignant neoplasms, colon Family history of colon cancer Family history of malignant neoplasm of gastrointestinal tract Mild intermittent asthma without complication Unspecified asthma Attention deficit disorder (ADD) without hyperactivity Essential hypertension Unspecified essential hypertension Hereditary and idiopathic peripheral neuropathy Unspecified hereditary and idiopathic peripheral neuropathy 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 DWIGHT (obstructive sleep apnea) Obstructive sleep apnea (adult) (pediatric) Reactive depression Dysthymic disorder S/P lumbar laminectomy Other postprocedural status Gastroesophageal reflux disease, unspecified whether esophagitis present Prediabetes Other abnormal glucose Obesity, Class III, BMI 40-49.9 (morbid obesity) (HCC) Morbid obesity DWIGHT (obstructive sleep apnea)- Primary Obstructive sleep apnea (adult) (pediatric) documented [facility]* Diagnosis Pre-operative examination- Primary Preoperative examination, unspecified Colon cancer screening Special screening for malignant neoplasms, colon Family history of colon cancer Family history of malignant neoplasm of gastrointestinal tract Mild intermittent asthma without complication Unspecified asthma Attention deficit disorder (ADD) without hyperactivity Essential hypertension Unspecified essential hypertension Hereditary and idiopathic peripheral neuropathy Unspecified hereditary and idiopathic peripheral neuropathy 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 DWIGHT (obstructive sleep apnea) Obstructive sleep apnea (adult) (pediatric) Reactive depression Dysthymic disorder S/P lumbar laminectomy Other postprocedural status Gastroesophageal reflux disease, unspecified whether esophagitis present Prediabetes Other abnormal glucose Obesity, Class III, BMI 40-49.9 (morbid obesity) (HCC) Morbid obesity Spinal stenosis of lumbar region with neurogenic claudication Spinal stenosis, lumbar region, with neurogenic claudication documented [facility]* Diagnosis Pre-operative examination- Primary Preoperative examination, unspecified Colon cancer screening Special screening for malignant neoplasms, colon Family history of colon cancer Family history of malignant neoplasm of gastrointestinal tract Mild intermittent asthma without complication Unspecified asthma Attention deficit disorder (ADD) without hyperactivity Essential hypertension Unspecified essential hypertension Hereditary and idiopathic peripheral neuropathy Unspecified hereditary and idiopathic peripheral neuropathy 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 DWIGHT (obstructive sleep apnea) Obstructive sleep apnea (adult) (pediatric) Reactive depression Dysthymic disorder S/P lumbar laminectomy Other postprocedural status Gastroesophageal reflux disease, unspecified whether esophagitis present Prediabetes Other abnormal glucose Obesity, Class III, BMI 40-49.9 (morbid obesity) (HCC) Morbid obesity Controlled type 2 diabetes mellitus without complication, without long-term current use of insulin (HCC) Class 3 severe obesity without serious comorbidity with body mass index (BMI) of 45.0 to 49.9 in adult, unspecified obesity type (HCC) Primary hypertension Unspecified essential hypertension documented in this encounter 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 DWIGHT (obstructive sleep apnea) Obstructive sleep apnea (adult) (pediatric) Reactive depression Dysthymic disorder S/P lumbar laminectomy Other postprocedural status Gastroesophageal reflux disease, unspecified whether esophagitis present Prediabetes Other abnormal glucose Obesity, Class III, BMI 40-49.9 (morbid obesity) (HCC) Morbid obesity Controlled type 2 diabetes mellitus without complication, without long-term current use of insulin (HCC)- Primary Primary hypertension Unspecified essential hypertension DWIGHT on CPAP Obstructive sleep apnea (adult) (pediatric) Gastroesophageal reflux disease, unspecified whether esophagitis present Class 3 severe obesity due to excess calories with body mass index (BMI) of 45.0 to 49.9 in adult, unspecified whether serious comorbidity present (HCC) Encounter for screening examination for other mental health and behavioral disorders documented [facility]* Diagnosis Pre-operative examination- Primary Preoperative examination, unspecified Colon cancer screening Special screening for malignant neoplasms, colon Family history of colon cancer Family history of malignant neoplasm of gastrointestinal tract Mild intermittent asthma without complication Unspecified asthma Attention deficit disorder (ADD) without hyperactivity Essential hypertension Unspecified essential hypertension Hereditary and idiopathic peripheral neuropathy Unspecified hereditary and idiopathic peripheral neuropathy 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 DWIGHT (obstructive sleep apnea) Obstructive sleep apnea (adult) (pediatric) Reactive depression Dysthymic disorder S/P lumbar laminectomy Other postprocedural status Gastroesophageal reflux disease, unspecified whether esophagitis present Prediabetes Other abnormal glucose Obesity, Class III, BMI 40-49.9 (morbid obesity) (HCC) Morbid obesity Primary hypertension Unspecified essential hypertension Gastroesophageal reflux disease, unspecified whether esophagitis present Controlled type 2 diabetes mellitus without complication, without long-term current use of insulin (HCC) Class 3 severe obesity without serious comorbidity with body mass index (BMI) of 45.0 to 49.9 in adult, unspecified obesity type (HCC) Rash Rash and other nonspecific skin eruption Spinal stenosis of lumbar region with neurogenic claudication Spinal stenosis, lumbar region, with neurogenic claudication 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 DWIGHT (obstructive sleep apnea) Obstructive sleep apnea (adult) (pediatric) Reactive depression Dysthymic disorder S/P lumbar laminectomy Other postprocedural status Gastroesophageal reflux disease, unspecified whether esophagitis present Prediabetes Other abnormal glucose Obesity, Class III, BMI 40-49.9 (morbid obesity) (HCC) Morbid obesity Primary hypertension Unspecified essential hypertension Controlled type 2 diabetes mellitus without complication, without long-term current use of insulin (HCC) Class 3 severe obesity without serious comorbidity with body mass index (BMI) of 45.0 to 49.9 in adult, unspecified obesity type (HCC) documented in this encounter 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 DWIGHT (obstructive sleep apnea) Obstructive sleep apnea (adult) (pediatric) Reactive depression Dysthymic disorder S/P lumbar laminectomy Other postprocedural status Gastroesophageal reflux disease, unspecified whether esophagitis present Prediabetes Other abnormal glucose Obesity, Class III, BMI 40-49.9 (morbid obesity) Morbid obesity Primary hypertension- Primary Unspecified essential hypertension Class 3 severe obesity due to excess calories with body mass index (BMI) of 45.0 to 49.9 in adult, unspecified whether serious comorbidity present Controlled type 2 diabetes mellitus without complication, without long-term current use of insulin (HCC) Gastroesophageal reflux disease, unspecified whether esophagitis present Class 3 severe obesity without serious comorbidity with body mass index (BMI) of 45.0 to 49.9 in adult, unspecified obesity type Urinary incontinence, unspecified type Obstructive sleep apnea Obstructive sleep apnea (adult) (pediatric) documented in this encounter 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 DWIGHT (obstructive sleep apnea) Obstructive sleep apnea (adult) (pediatric) Reactive depression Dysthymic disorder S/P lumbar laminectomy Other postprocedural status Gastroesophageal reflux disease, unspecified whether esophagitis present Prediabetes Other abnormal glucose Obesity, Class III, BMI 40-49.9 (morbid obesity) (HCC) Morbid obesity Primary hypertension Unspecified essential hypertension Controlled type 2 diabetes mellitus without complication, without long-term current use of insulin (HCC) Class 3 severe obesity without serious comorbidity with body mass index (BMI) of 45.0 to 49.9 in adult, unspecified obesity type (HCC) documented in this encounter 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0 to 49.9 in adult, unspecified obesity type (HCC) DWIGHT (obstructive sleep apnea) Obstructive sleep apnea (adult) (pediatric) Hyperlipidemia, unspecified hyperlipidemia type documented in this encounter [facility] for referral (narrative)* Outpatient Procedure (Routine) - Authorized Specialty Diagnoses / Procedures Referred By Rachel t Referred To Contact [facility] [place] Diagnoses Dysphagia, unspecified type Procedures EGD DIAGNOSTIC ESOPHAGOGASTRODUODENOSC OPY TRANSORAL DIAGNOSTIC Roseanna Ross APRN.RETAIL SALES MERCHANDISER [address] [place] [address] [facility] [place] [address] [place] [id number] Referral ID Status Reason Start Date Expiration Date Visits Requested Visits Authorized [id number] Authorized Auto-Generat ed Referral 12/03/2021 12/03/2022 1 1 * Outpatient Procedure (Routine) - Authorized Specialty Diagnoses / Procedures Referred By Rachel t Referred To Contact [facility] Diagnoses Family history of colon cancer Colon cancer screening Family history of colon cancer in father Procedures COLONOSCOPY SCREENING COLONOSCOPY FLX DX W/COLLJ SPEC WHEN PFRMD Roseanna Ross APRN.RETAIL SALES MERCHANDISER [address] [place] [address] [facility] [place] [address] [place] [id number] Referral ID Status Reason Start Date Expiration Date Visits Requested Visits Authorized [id number] Authorized Auto-Generat ed Referral 12/03/2021 12/03/2022 1 1 [facility] for referral (narrative)* Outpatient Procedure (Routine) - Closed Specialty Diagnoses / Procedures [facility] Referred To Contact [facility] [place] Diagnoses Dysphagia, unspecified type Procedures EGD DIAGNOSTIC ESOPHAGOGASTRODUODENOSC OPY TRANSORAL DIAGNOSTIC Rosaenna Ross APRN.RETAIL SALES MERCHANDISER [address] [place] [address] [facility] [place] [address] [place] [id number] Referral ID Status Reason Start Date Expiration Date V isits Requested Visits Authorized [id number] Closed Auto-Generate d Referral 12/03/2021 12/03/2022 1 1 * Outpatient Procedure (Routine) - Closed Specialty Diagnoses / Procedures Referred By Contac t Referred To Contact [facility] Diagnoses Family history of colon cancer Colon cancer screening Family history of colon cancer in father Procedures COLONOSCOPY SCREENING COLONOSCOPY FLX DX W/COLLJ SPEC WHEN Roseanna Brewer APRN.RETAIL SALES MERCHANDISER [address] [place] [address] [facility] [place] [address] [place] [id number] Referral ID Status Reason Start Date Expiration Date V isits Requested Visits Authorized [id number] Closed Auto-Generate d Referral 12/03/2021 12/03/2022 1 1 [facility] for referral (narrative)* Outpatient Procedure (Routine) - Authorized Specialty Diagnoses / Procedures Referred By Contac t Referred To Contact [facility] Diagnoses SOB (shortness of breath) on exertion Procedures ECHO ECHO TTHRC R-T 2D W/WOM-MODE COMPL SPEC&COLR D Ligia Coughlin APRN.RETAIL SALES MERCHANDISER [address] [place] [address] [facility] [address] [address] Referral ID Status Reason Start Date Expiration Date Visits Requested Visits Authorized [id number] Authorized Auto-Generat ed Referral 04/29/2022 04/29/2023 1 1 [facility] for referral (narrative)* Diagnostic Procedure Only (Routine) - Closed Specialty Diagnoses / Procedures Referred By Contac t Referred To Contact X[facility] IMAG[facility] Diagnoses Foot pain, right Procedures XR FOOT GENERAL 3V AP/LAT/OBL RIGHT RADEX FOOT COMPLETE MINIMUM 3 VIEWS Alyssa Hernandez APRN.RETAIL SALES MERCHANDISER [address] [place] [address] [facility] Referral ID Status Reason Start Date Expiration Date V isits Requested Visits Authorized [id number] Closed Auto-Generate d Referral 05/01/2022 05/31/2023 1 1 [facility] for referral (narrative)* Diagnostic Procedure Only (Urgent) - Closed Specialty Diagnoses / Procedures Referred By Contac t Referred To Contact [facility] IMAGING Diagnoses Acute left ankle pain Procedures XR ANKLE GENERAL 3V AP/LAT/OBL LEFT RADEX ANKLE COMPLETE MINIMUM 3 VIEWS Celso Smith APRN.RETAIL SALES MERCHANDISER [address] [place] [address] [facility] Referral ID Status Reason Start Date Expiration Date V isits Requested Visits Authorized [id number] Closed Auto-Generate d Referral 02/13/2023 03/14/2024 1 1 * Diagnostic Procedure Only (Urgent) - Closed Specialty Diagnoses / Procedures Referred By Contac t Referred To Contact XR IMAGING Diagnoses Foot pain, left Procedures XR FOOT GENERAL 3V AP/LAT/OBL LEFT RADEX FOOT COMPLETE MINIMUM 3 VIEWS Celso Smith APRN.RETAIL SALES MERCHANDISER [address] [place] [address] [facility] Referral ID Status Reason Start Date Expiration Date V isits Requested Visits Authorized [id number] Closed Auto-Generate d Referral 02/13/2023 03/14/2024 1 1 [facility] for referral (narrative)* Diagnostic Procedure Only (Urgent) - Closed Specialty Diagnoses / Procedures Referred By Contac t Referred To Contact XR IMAGING Diagnoses Puncture wound of left foot with foreign body, initial encounter Procedures XR FOOT GENERAL 3V AP/LAT/OBL LEFT RADEX FOOT COMPLETE MINIMUM 3 VIEWS Madelaine Mancuso PA-C [address] [place] [address] [place] [address] Referral ID Status Reason Start Date Expiration Date V isits Requested Visits Authorized [id number] Closed Auto-Generate d Referral 12/17/2022 01/16/2024 1 1 [facility] for referral (narrative)* Diagnostic Procedure Only (Routine) - Closed Specialty Diagnoses / Procedures Referred By Contac t Referred To Contact XR IMAGING Diagnoses Foot pain, right Procedures XR FOOT GENERAL 3V AP/LAT/OBL RIGHT RADEX FOOT COMPLETE MINIMUM 3 VIEWS Alyssa Hernandez SALES LEAD.RETAIL SALES MERCHANDISER [address] [place] [address] [place] [address] Referral ID Status Reason Start Date Expiration Date V isits Requested Visits Authorized [id number] Closed Auto-Generate d Referral 05/01/2022 05/31/2023 1 1 [facility] for referral (narrative)No reason for referral information availableWMet[facility] Work Phone: Reason for visit Narrative* Outpatient Procedure (Routine) - Closed Specialty Diagnoses / Procedures Referred By Contac t Referred To Contact [facility] Diagnoses Dysphagia, unspecified type Procedures EGD DIAGNOSTIC ESOPHAGOGASTRODUODENOSC OPY TRANSORAL DIAGNOSTIC Roseanna Ross, SALES LEAD.RETAIL SALES MERCHANDISER [address] [place] [address] [facility] [place] [address] [place] [address] Referral ID Status Reason Start Date Expiration Date V isits Requested Visits Authorized [id number] Closed Auto-Generate d Referral 12/03/2021 12/03/2022 1 1 [facility] for visit Narrative* Diagnostic Procedure Only (Urgent) - Closed Specialty Diagnoses / Procedures Referred By Contac t Referred To Contact XR IMAGING Diagnoses Acute left ankle pain Procedures XR ANKLE GENERAL 3V AP/LAT/OBL LEFT RADEX ANKLE COMPLETE MINIMUM 3 VIEWS Celso Smith SALES LEAD.RETAIL SALES MERCHANDISER [address] [place] [address] [place] [address] Referral ID Status Reason Start Date Expiration Date V isits Requested Visits Authorized [id number] Closed Auto-Generate d Referral 02/13/2023 03/14/2024 1 1 [facility] for visit Narrative* Diagnostic Procedure Only (Urgent) - Closed Specialty Diagnoses / Procedures Referred By Contac t Referred To Contact XR IMAGING Diagnoses Puncture wound of left foot with foreign body, initial encounter Procedures XR FOOT GENERAL 3V AP/LAT/OBL LEFT RADEX FOOT COMPLETE MINIMUM 3 VIEWS Madelaine Mancuso, PAAudieC [address] [place] [address] [place] [address] Referral ID Status Reason Start Date Expiration Date V isits Requested Visits Authorized [id number] Closed Auto-Generate d Referral 12/17/2022 01/16/2024 1 1 [facility] for visit Narrative* Diagnostic Procedure Only (Routine) - Closed Specialty Diagnoses / Procedures Referred By Contac t Referred To Contact XR IMAGING Diagnoses Foot pain, right Procedures XR FOOT GENERAL 3V AP/LAT/OBL RIGHT RADEX FOOT COMPLETE MINIMUM 3 VIEWS Alyssa Hernandez APRN.RETAIL SALES MERCHANDISER [address] [place] [address] [place] [address] Referral ID Status Reason Start Date Expiration Date V isits Requested Visits Authorized [id number] Closed Auto-Generate d Referral 05/01/2022 05/31/2023 [address] 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 Expl 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 Advance Directive(s) 03/05/2022 7:15 AM Advance Directive(s) 01/27/2022 10:10 AM Advance Directive Response Recorded Date/ Time Living Will No July 11 6:38pm Power of Quarryman No July 11, 2021 6:38pm Advance Directive Response Recorded Date/ Time Living Will No September 16 9:03am Power of Quarryman No September 16, 2022 9:03am Medications Administered Section Inactive Administered Medications - up to 3 most recent administrations Medication Order MAR Action Action Date Dose Rate Site benzocaine 20% 4 [place] (TOPEX) 4 [place], TOPICAL, ONCE, 1 dose, On Thu03/05/22 at 0930, Orally per LIP prior to start of procedure - Pharmaceutical Waste: Aerosol -, Preprocedure Given 03/05/2022 8:47 AM EDT 4 Sprays lactated ringers iv infusion 30 mL/hr, INTRAVENOUS, CONTINUOUS, Starting on Thu03/05/22 at 0800, Until Thu03/05/22 at 0923, Preprocedure New Bag/Syringe/Bottle 03/05/2022 7:46 AM EDT 30 mL/hr 30 mL/hr simethicone 20 mg oral liquid (MYLICON) 20 mg, ORAL, ONCE, 1 dose, On Thu03/05/22 at 0930, Per LIP intraprocedure via Colonoscope Shake Well, Intraprocedure Given 03/05/2022 9:05 AM EDT 20 mg Reason for Referral Specialty Diagnoses / Procedures Referred By Rachel t Referred To Contact Diagnoses Class 3 severe obesity without serious comorbidity with body mass index (BMI) of 45.0 to 49.9 in adult, unspecified obesity type (HCC) Procedures CONSULT [facility] OFFICE/OUTPATIENT [facility] 60-74 MINUTES Sarah Herrmann, SALES LEAD.HEALTH CARE SPECIALIST [address] [place] [address] Referral ID Status Reason Start Date Expiration Date Visits Requested Visits Authorized [id number] Authorized PCP Requested Referral 2 07/22/2023 1 1 Specialty Diagnoses / Procedures Referred By Rachel t Referred To Contact Diagnoses Class 3 severe obesity without serious comorbidity with body mass index (BMI) of 45.0 to 49.9 in adult, unspecified obesity type (HCC) Procedures CONSULT TO BARIATRIC NUTRITION OFFICE/OUTPATIENT [facility] MDM 60-74 MINUTES Carmelita Thomas, SALES LEAD.RETAIL SALES MERCHANDISER [address] [place] [address] Referral ID Status Reason Start Date Expiration Date Visits Requested Visits Authorized [id number] Pending Review PCP Requested Referral 10/03/2022 10/03/2023 1 1 Specialty Diagnoses / Procedures Referred By Contac t Referred To Contact Podiatry Diagnoses Puncture wound of left foot with foreign body, initial encounter Procedures CONSULT TO PODIATRY OFFICE/OUTPATIENT [facility] HIGH MDM 60-74 MINUTES Madelaine Mancuso PA-C [address] [place] [address] Referral ID Status Reason Start Date Expiration Date Visits Requested Visits Authorized [id number] Authorized PCP Requested Referral 12/17/2022 12/17/2023 1 1 Specialty Diagnoses / Procedures Referred By Contac t Referred To Contact XR IMAGING Diagnoses Puncture wound of left foot with foreign body, initial encounter Procedures XR FOOT GENERAL 3V AP/LAT/OBL LEFT RADEX FOOT COMPLETE MINIMUM 3 VIEWS Madelaine Mancuso PA-C [address] [place] [address] Xr Imaging Referral ID Status Reason Start Date Expiration Date V isits Requested Visits Authorized [id number] Closed Auto-Generate d Referral 12/17/2022 01/16/2024 1 1 Specialty Diagnoses / Procedures Referred By Contac t Referred To Contact Diagnoses Controlled type 2 diabetes mellitus without complication, without long-term current use of insulin (HCC) Liudmila Breaux APRN.CNP [address] [place] [address] Referral ID Status Reason Start Date Expiration Date Visits Re quested Visits Authorized [id number] Closed 1 1 Specialty Diagnoses / Procedures Referred By Contac t Referred To Contact Diagnoses Controlled type 2 diabetes mellitus without complication, without long-term current use of insulin (HCC) Class 3 severe obesity without serious comorbidity with body mass index (BMI) of 45.0 to 49.9 in adult, unspecified obesity type (HCC) Primary hypertension Hector Currie MD [address] [place] [address] Referral ID Status Reason Start Date Expiration Date Visits Re quested Visits Authorized [id number] Closed 1 1 Chief Complaint and Reason for Visit Chief Complaint cp Chief Complaint DWIGHT Chief Complaint DWIGHT DWIGHT; WRITTEN ORDER NB APPROVED 10/19/23 Health Concerns Infection Onset Date Last Indicated Resolved Time COVID-19 Confirmed 11/17/2022 11/17/2022 Infection Onset Date Last Indicated Resolved Time COVID-19 Rule-Out 11/06/2023 11/06/2023 11/06/2023 6:51 PM EDT Additional Source Comments (unrecognized sect ion and content) No Status Records FoundNo Status Records FoundNo Status Records FoundNo Status Records FoundNo Status Records Found INFORMATION SOURCE (unrecogn ized section and content) DATE CREATED AUTHOR 11/27/[address] [facility] DATE CREATED AUTHOR AUTHOR'S ORGANIZ ATION 09/10/[address] [facility] DATE CREATED AUTHOR AUTHOR'S ORGANIZ ATION 03/14/2022 [facility] DATE CREATED AUTHOR AUTHOR'S ORGANIZ ATION 12/09/2024 [facility] DATE CREATED AUTHOR AUTHOR'S ORGANIZ ATION 05/26/2025 [facility] Source Comments (unrecognize d section and content) In the event this informatio n is protected by the Federal Confidentiality of Alcohol and Drug Abuse Patient Records regulations: The Federal rules restrict any use of the information to criminally investigate or prosecute any alcohol or drug abuse patient.[facility] the event this information is protected by the Federal Confidentiality of Alcohol and Drug Abuse Patient Records regulations: The Federal rules restrict any use of the information to criminally investigate or prosecute any alcohol or drug abuse patient.[facility] the event this information is protected by the Federal Confidentiality of Alcohol and Drug Abuse Patient Records regulations: The Federal rules restrict any use of the information to criminally investigate or prosecute any alcohol or drug abuse patient.[facility] the event this information is protected by the Federal Confidentiality of Alcohol and Drug Abuse Patient Records regulations: The Federal rules restrict any use of the information to criminally investigate or prosecute any alcohol or drug abuse patient.[facility] the event this information is protected by the Federal Confidentiality of Alcohol and Drug Abuse Patient Records regulations: The Federal rules restrict any use of the information to criminally investigate or prosecute any alcohol or drug abuse patient.[facility] the event this information is protected by the Federal Confidentiality of Alcohol and Drug Abuse Patient Records regulations: The Federal rules restrict any use of the information to criminally investigate or prosecute any alcohol or drug abuse patient.[facility] the event this information is protected by the Federal Confidentiality of Alcohol and Drug Abuse Patient Records regulations: The Federal rules restrict any use of the information to criminally investigate or prosecute any alcohol or drug abuse patient.[facility] the event this information is protected by the Federal Confidentiality of Alcohol and Drug Abuse Patient Records regulations: The Federal rules restrict any use of the information to criminally investigate or prosecute any alcohol or drug abuse patient[facility] [facility] HospitalIn the event this information is protected by the Federal Confidentiality of Alcohol and Drug Abuse Patient Records regulations: The Federal rules restrict any use of the information to criminally investigate or prosecute any alcohol or drug abuse patient.[facility] HospitalIn the event this information is protected by the Federal Confidentiality of Alcohol and Drug Abuse Patient Records regulations: The Federal rules restrict any use of the information to criminally investigate or prosecute any alcohol or drug abuse patient.[facility] HospitalIn the event this information is protected by the Federal Confidentiality of Alcohol and Drug Abuse Patient Records regulations: The Federal rules restrict any use of the information to criminally investigate or prosecute any alcohol or drug abuse patient.[facility] HospitalIn the event this information is protected by the Federal Confidentiality of Alcohol and Drug Abuse Patient Records regulations: The Federal rules restrict any use of the information to criminally investigate or prosecute any alcohol or drug abuse patient.[facility] HospitalIn the event this information is protected by the Federal Confidentiality of Alcohol and Drug Abuse Patient Records regulations: The Federal rules restrict any use of the information to criminally investigate or prosecute any alcohol or drug abuse patient.[facility] HospitalIn the event this information is protected by the Federal Confidentiality of Alcohol and Drug Abuse Patient Records regulations: The Federal rules restrict any use of the information to criminally investigate or prosecute any alcohol or drug abuse patient.[facility] HospitalIn the event this information is protected by the Federal Confidentiality of Alcohol and Drug Abuse Patient Records regulations: The Federal rules restrict any use of the information to criminally investigate or prosecute any alcohol or drug abuse patient.[facility] HospitalIn the event this information is protected by the Federal Confidentiality of Alcohol and Drug Abuse Patient Records regulations: The Federal rules restrict any use of the information to criminally investigate or prosecute any alcohol or drug abuse patient.[facility] HospitalIn the event this information is protected by the Federal Confidentiality of Alcohol and Drug Abuse Patient Records regulations: The Federal rules restrict any use of the information to criminally investigate or prosecute any alcohol or drug abuse patient.[facility] HospitalIn the event this information is protected by the Federal Confidentiality of Alcohol and Drug Abuse Patient Records regulations: The Federal rules restrict any use of the information to criminally investigate or prosecute any alcohol or drug abuse patient.[facility] HospitalIn the event this information is protected by the Federal Confidentiality of Alcohol and Drug Abuse Patient Records regulations: The Federal rules restrict any use of the information to criminally investigate or prosecute any alcohol or drug abuse patient.[facility] HospitalIn the event this information is protected by the Federal Confidentiality of Alcohol and Drug Abuse Patient Records regulations: The Federal rules restrict any use of the information to criminally investigate or prosecute any alcohol or drug abuse patient.[facility] HospitalIn the event this information is protected by the Federal Confidentiality of Alcohol and Drug Abuse Patient Records regulations: The Federal rules restrict any use of the information to criminally investigate or prosecute any alcohol or drug abuse patient.[facility] HospitalIn the event this information is protected by the Federal Confidentiality of Alcohol and Drug Abuse Patient Records regulations: The Federal rules restrict any use of the information to criminally investigate or prosecute any alcohol or drug abuse patient.[facility] HospitalIn the event this information is protected by the Federal Confidentiality of Alcohol and Drug Abuse Patient Records regulations: The Federal rules restrict any use of the information to criminally investigate or prosecute any alcohol or drug abuse patient.[facility] HospitalIn the event this information is protected by the Federal Confidentiality of Alcohol and Drug Abuse Patient Records regulations: The Federal rules restrict any use of the information to criminally investigate or prosecute any alcohol or drug abuse patient.[facility] HospitalIn the event this information is protected by the Federal Confidentiality of Alcohol and Drug Abuse Patient Records regulations: The Federal rules restrict any use of the information to criminally investigate or prosecute any alcohol or drug abuse patient.[facility] HospitalIn the event this information is protected by the Federal Confidentiality of Alcohol and Drug Abuse Patient Records regulations: The Federal rules restrict any use of the information to criminally investigate or prosecute any alcohol or drug abuse patient.[facility] HospitalIn the event this information is protected by the Federal Confidentiality of Alcohol and Drug Abuse Patient Records regulations: The Federal rules restrict any use of the information to criminally investigate or prosecute any alcohol or drug abuse patient.[facility] HospitalIn the event this information is protected by the Federal Confidentiality of Alcohol and Drug Abuse Patient Records regulations: The Federal rules restrict any use of the information to criminally investigate or prosecute any alcohol or drug abuse patient.[facility] HospitalIn the event this information is protected by the Federal Confidentiality of Alcohol and Drug Abuse Patient Records regulations: The Federal rules restrict any use of the information to criminally investigate or prosecute any alcohol or drug abuse patient.[facility] HospitalIn the event this information is protected by the Federal Confidentiality of Alcohol and Drug Abuse Patient Records regulations: The Federal rules restrict any use of the information to criminally investigate or prosecute any alcohol or drug abuse patient.[facility] HospitalIn the event this information is protected by the Federal Confidentiality of Alcohol and Drug Abuse Patient Records regulations: The Federal rules restrict any use of the information to criminally investigate or prosecute any alcohol or drug abuse patient.[facility] HospitalIn the event this information is protected by the Federal Confidentiality of Alcohol and Drug Abuse Patient Records regulations: The Federal rules restrict any use of the information to criminally investigate or prosecute any alcohol or drug abuse patient.[facility] HospitalIn the event this information is protected by the Federal Confidentiality of Alcohol and Drug Abuse Patient Records regulations: The Federal rules restrict any use of the information to criminally investigate or prosecute any alcohol or drug abuse patient.[facility] HospitalIn the event this information is protected by the Federal Confidentiality of Alcohol and Drug Abuse Patient Records regulations: The Federal rules restrict any use of the information to criminally investigate or prosecute any alcohol or drug abuse patient.[facility] HospitalIn the event this information is protected by the Federal Confidentiality of Alcohol and Drug Abuse Patient Records regulations: The Federal rules restrict any use of the information to criminally investigate or prosecute any alcohol or drug abuse patient.[facility] HospitalIn the event this information is protected by the Federal Confidentiality of Alcohol and Drug Abuse Patient Records regulations: The Federal rules restrict any use of the information to criminally investigate or prosecute any alcohol or drug abuse patient.[facility] HospitalIn the event this information is protected by the Federal Confidentiality of Alcohol and Drug Abuse Patient Records regulations: The Federal rules restrict any use of the information to criminally investigate or prosecute any alcohol or drug abuse patient.[facility] HospitalIn the event this information is protected by the Federal Confidentiality of Alcohol and Drug Abuse Patient Records regulations: The Federal rules restrict any use of the information to criminally investigate or prosecute any alcohol or drug abuse patient.[facility] HospitalIn the event this information is protected by the Federal Confidentiality of Alcohol and Drug Abuse Patient Records regulations: The Federal rules restrict any use of the information to criminally investigate or prosecute any alcohol or drug abuse patient.[facility] HospitalIn the event this information is protected by the Federal Confidentiality of Alcohol and Drug Abuse Patient Records regulations: The Federal rules restrict any use of the information to criminally investigate or prosecute any alcohol or drug abuse patient.[facility] HospitalIn the event this information is protected by the Federal Confidentiality of Alcohol and Drug Abuse Patient Records regulations: The Federal rules restrict any use of the information to criminally investigate or prosecute any alcohol or drug abuse patient.[facility] HospitalIn the event this information is protected by the Federal Confidentiality of Alcohol and Drug Abuse Patient Records regulations: The Federal rules restrict any use of the information to criminally investigate or prosecute any alcohol or drug abuse patient.[facility] HospitalIn the event this information is protected by the Federal Confidentiality of Alcohol and Drug Abuse Patient Records regulations: The Federal rules restrict any use of the information to criminally investigate or prosecute any alcohol or drug abuse patient.[facility] HospitalIn the event this information is protected by the Federal Confidentiality of Alcohol and Drug Abuse Patient Records regulations: The Federal rules restrict any use of the information to criminally investigate or prosecute any alcohol or drug abuse patient.[facility] HospitalIn the event this information is protected by the Federal Confidentiality of Alcohol and Drug Abuse Patient Records regulations: The Federal rules restrict any use of the information to criminally investigate or prosecute any alcohol or drug abuse patient.[facility] HospitalIn the event this information is protected by the Federal Confidentiality of Alcohol and Drug Abuse Patient Records regulations: The Federal rules restrict any use of the information to criminally investigate or prosecute any alcohol or drug abuse patient.[facility] HospitalIn the event this information is protected by the Federal Confidentiality of Alcohol and Drug Abuse Patient Records regulations: The Federal rules restrict any use of the information to criminally investigate or prosecute any alcohol or drug abuse patient.[facility] HospitalIn the event this information is protected by the Federal Confidentiality of Alcohol and Drug Abuse Patient Records regulations: The Federal rules restrict any use of the information to criminally investigate or prosecute any alcohol or drug abuse patient.[facility] HospitalIn the event this information is protected by the Federal Confidentiality of Alcohol and Drug Abuse Patient Records regulations: The Federal rules restrict any use of the information to criminally investigate or prosecute any alcohol or drug abuse patient.[facility] HospitalIn the event this information is protected by the Federal Confidentiality of Alcohol and Drug Abuse Patient Records regulations: The Federal rules restrict any use of the information to criminally investigate or prosecute any alcohol or drug abuse patient.[facility] HospitalIn the event this information is protected by the Federal Confidentiality of Alcohol and Drug Abuse Patient Records regulations: The Federal rules restrict any use of the information to criminally investigate or prosecute any alcohol or drug abuse patient.[facility] HospitalIn the event this information is protected by the Federal Confidentiality of Alcohol and Drug Abuse Patient Records regulations: The Federal rules restrict any use of the information to criminally investigate or prosecute any alcohol or drug abuse patient.[facility] HospitalIn the event this information is protected by the Federal Confidentiality of Alcohol and Drug Abuse Patient Records regulations: The Federal rules restrict any use of the information to criminally investigate or prosecute any alcohol or drug abuse patient.[facility] HospitalIn the event this information is protected by the Federal Confidentiality of Alcohol and Drug Abuse Patient Records regulations: The Federal rules restrict any use of the information to criminally investigate or prosecute any alcohol or drug abuse patient.[facility] HospitalIn the event this information is protected by the Federal Confidentiality of Alcohol and Drug Abuse Patient Records regulations: The Federal rules restrict any use of the information to criminally investigate or prosecute any alcohol or drug abuse patient.[facility] HospitalIn the event this information is protected by the Federal Confidentiality of Alcohol and Drug Abuse Patient Records regulations: The Federal rules restrict any use of the information to criminally investigate or prosecute any alcohol or drug abuse patient.[facility] HospitalIn the event this information is protected by the Federal Confidentiality of Alcohol and Drug Abuse Patient Records regulations: The Federal rules restrict any use of the information to criminally investigate or prosecute any alcohol or drug abuse patient.[facility] HospitalIn the event this information is protected by the Federal Confidentiality of Alcohol and Drug Abuse Patient Records regulations: The Federal rules restrict any use of the information to criminally investigate or prosecute any alcohol or drug abuse patient.[facility] HospitalIn the event this information is protected by the Federal Confidentiality of Alcohol and Drug Abuse Patient Records regulations: The Federal rules restrict any use of the information to criminally investigate or prosecute any alcohol or drug abuse patient.[facility] Reason for Visit (unrecogniz ed section and content) Reason Comments GERD Outpatient Colonoscopy due to family his tory of colon cancer Specialty Diagnoses / Procedures Referred By Rachel t Referred To Contact Gastroenterology Diagnoses Family history of colon cancer Colon cancer screening Procedures CONSULT TO GASTROENTEROLOGY OFFICE/OUTPATIENT NEW HIGH MDM 60-74 MINUTES Sarah Herrmann, SALES LEAD.HEALTH CARE SPECIALIST [address] [place] [address] Referral ID Status Reason Start Date Expiration Date V isits Requested Visits Authorized [id number] Closed PCP Requested Referral 10/14/2021 10/14/2022 1 1 Reason Comments PT Discharge Specialty Diagnoses / Procedures Referred By Contac t Referred To Contact Podiatry Diagnoses Congenital pes planus, unspecified laterality Procedures CONSULT TO PODIATRY OFFICE/OUTPATIENT [facility] 60-74 MINUTES HerrmannSarah, SALES LEAD.HEALTH CARE SPECIALIST [address] [place] [address] Referral ID Status Reason Start Date Expiration Date V isits Requested Visits Authorized [id number] Closed PCP Requested Referral 10/18/2021 10/18/2022 1 1 Reason Comments Pre-Op Exam Reason Comments Refill Request Reason Comments Results Reason Comments Results Reason Comments Pain (foot) (RT) foot pain, bump ed into table, x2 days, denied fall. Reason Comments Yearly Exam Reason Comments Lab Orders Reason Comments Follow Up Reason Comments ER F/U Chest pain- [facility] 09/16 Reason Comments New Patient Obesity Specialty Diagnoses / Procedures Referred By Contac t Referred To Contact Diagnoses Class 3 severe obesity without serious comorbidity with body mass index (BMI) of 45.0 to 49.9 in adult, unspecified obesity type (HCC) Procedures CONSULT [facility] OFFICE/OUTPATIENT [facility] 60-74 MINUTES Sarah Herrmann, SALES LEAD.HEALTH CARE SPECIALIST [address] [place] [address] Referral ID Status Reason Start Date Expiration Date V isits Requested Visits Authorized [id number] Closed PCP Requested Referral 07/22/2022 07/22/2023 1 1 Reason Comments Head Congestion cough x 4 days Reason Comments Established Patient Follow up Reason Onset Date Comments Refill Request 12/04/2022 Reason Comments sore on bottom of left foot X 2 weeks Reason Comments Obesity Reason Comments [employer] olympics forms dropped off Reason Comments Pain Pt reported (LT) ank le pain, x2 wks, recent express care visit, [place], no xray performed pain rated 5, denied injury. Reason Comments Dental Problem Tooth pain x 1 day Reason Comments Patient to resume PAP Reason Comments Insurance Authorization Reason Comments Follow Up Reason Comments Cough Reason Comments Follow Up 4 month exam Reason Comments F/U 4 month Reason Comments Nasal Congestion drainage, sore throa t x 3 days Reason Comments discuss getting back on BiPAP Has not us ed it in 6 months or longer, no longer has the machine at home. Reason Comments Electronic Communication Reason Comments Results - Sleep Study Reason Onset Date Comments Refill Request 07/28/2024 Reason Onset Date Comments Refill Request 07/12/2024 Reason Onset Date Comments Refill Request 08/09/2024 Reason Comments Follow up 4 month Labs prior Reason Comments Patient Request Reason Comments Nasal Congestion drainage, cough, los s of taste and smell x 2 days Reason Onset Date Comments Refill Request 11/14/2024 Reason Comments Recheck Reason Onset Date Comments Refill Request 02/07/2025 Reason Comments Established Patient 4 month F/U HTN and sugar levels Reason Comments Orders Care Teams (unrecognized sec tion and content) Marketing Liaison Relationship Specialty Start Date End Date Hector Currie MD [address] [place] [address] PCP - General Internal Medicine 10/06/17 Marketing Liaison Relationship Specialty Start Date End Date Hector Currie MD [address] [place] [address] PCP - General Internal Medicine 10/06/17 Marketing Liaison Relationship Specialty Start Date End Date Hector Currie MD [address] [place] [address] PCP - General Internal Medicine 10/06/17 Marketing Liaison Relationship Specialty Start Date End Date Hector Currie MD [address] [place] [address] PCP - General Internal Medicine 10/06/17 Marketing Liaison Relationship Specialty Start Date End Date Hector Currie MD [address] [place] [address] PCP - General Internal Medicine 10/06/17 Marketing Liaison Relationship Specialty Start Date End Date Hector Currie MD [address] [facility] [place] [address] PCP - General Internal Medicine 10/06/17 Marketing Liaison Relationship Specialty Start Date End Date Hector Currie MD [address] [place] [address] PCP - General Internal Medicine 10/06/17 Marketing Liaison Relationship Specialty Start Date End Date Hector Currie MD [address] [place] [address] PCP - General Internal Medicine 10/06/17 Marketing Liaison Relationship Specialty Start Date End Date Hector Currie MD [address] [place] [address] PCP - General Internal Medicine 10/06/17 Marketing Liaison Relationship Specialty Start Date End Date Hector Currie MD [address] [place] [address] PCP - General Internal Medicine 10/06/17 Marketing Liaison Relationship Specialty Start Date End Date Hector Currie MD [address] [place] [address] PCP - General Internal Medicine 10/06/17 Marketing Liaison Relationship Specialty Start Date End Date Hector Currie MD [address] [place] [address] PCP - General Internal Medicine 10/06/17 Marketing Liaison Relationship Specialty Start Date End Date Hector Currie MD [address] [place] [address] PCP - General Internal Medicine 10/06/17 Team Status: Active Member Role Status Dates Dr. Hector Currie MD Family Provider Active Dr. Hector Currie MD Primary Care Provider Active Team Status: Inactive Member Role Status Dates Dr. Hector Currie MD Primary Care Provider Active Dr. Cuco Mccloud MD Emergency Provider Active Marketing Liaison Relationship Specialty Start Date End Date Hector Currie MD [address] [facility] [place] [address] PCP - General Internal Medicine 10/06/17 Marketing Liaison Relationship Specialty Start Date End Date Hector Currie MD [facility] [place] [address] PCP - General Internal Medicine 10/06/17 Marketing Liaison Relationship Specialty Start Date End Date Hector Currie MD [address] [place] [address], [place] [address] PCP - General Internal Medicine 10/06/17 Marketing Liaison Relationship Specialty Start Date End Date Hector Currie MD [address] [place] [address], [place] [address] PCP - General Internal Medicine 10/06/17 Marketing Liaison Relationship Specialty Start Date End Date Hector Currie MD [address] [place] [address], [place] [address] PCP - General Internal Medicine 10/06/17 Marketing Liaison Relationship Specialty Start Date End Date Hector Currie MD [address] [place] [address], [place] [address] PCP - General Internal Medicine 10/06/17 Marketing Liaison Relationship Specialty Start Date End Date Hector Currie MD [address] [place] [address], [place] [address] PCP - General Internal Medicine 10/06/17 Marketing Liaison Relationship Specialty Start Date End Date Hector Currie MD [address] [place] [address], [place] [address] PCP - General Internal Medicine 10/06/17 Marketing Liaison Relationship Specialty Start Date End Date Hector Currie MD [address] [place] [address], [place] [address] PCP - General Internal Medicine 10/06/17 Marketing Liaison Relationship Specialty Start Date End Date Hector Currie MD [address] [place] [address] PCP - General Internal Medicine 10/06/17 Marketing Liaison Relationship Specialty Start Date End Date Hector Currie MD [address] [place] [address] PCP - General Internal Medicine 10/06/17 Team Status: Inactive Member Role Status Dates Dr. Hector Currie MD Primary Care Pr ovider, Attending Provider, Referring Provider Active Marketing Liaison Relationship Specialty Start Date End Date Hector Currie MD [address] [place] [address] PCP - General Internal Medicine 10/06/17 Marketing Liaison Relationship Specialty Start Date End Date Hector Currie MD [address] [place] [address] PCP - General Internal Medicine 10/06/17 Marketing Liaison Relationship Specialty Start Date End Date Hector Currie MD [address] [place] [address] PCP - General Internal Medicine 10/06/17 Marketing Liaison Relationship Specialty Start Date End Date Hector Currie MD [address] [place] [address] PCP - General Internal Medicine 10/06/17 Marketing Liaison Relationship Specialty Start Date End Date Hector Currie MD [address] [place] [address] PCP - General Internal Medicine 10/06/17 Marketing Liaison Relationship Specialty Start Date End Date Hector Currie MD [address] [facility] [place] [address] PCP - General Internal Medicine 10/06/17 Marketing Liaison Relationship Specialty Start Date End Date Hector Currie MD [address] [facility] [place] [address] PCP - General Internal Medicine 10/06/17 Marketing Liaison Relationship Specialty Start Date End Date Hector Currie MD [address] [facility] [place] [address] PCP - General Internal Medicine 10/06/17 Marketing Liaison Relationship Specialty Start Date End Date Hector Currie MD [address] [facility] [place] [address] PCP - General Internal Medicine 10/06/17 Marketing Liaison Relationship Specialty Start Date End Date Hector Currie MD [address] [facility] [place] [address] PCP - General Internal Medicine 10/06/17 Marketing Liaison Relationship Specialty Start Date End Date Hector Currie MD [address] [facility] [place] [address] PCP - General Internal Medicine 10/06/17 Marketing Liaison Relationship Specialty Start Date End Date Hector Currie MD [address] [facility] [place] [address] PCP - General Internal Medicine 10/06/17 Marketing Liaison Relationship Specialty Start Date End Date Hector Currie MD [address] [facility] [place] [address] PCP - General Internal Medicine 10/06/17 Marketing Liaison Relationship Specialty Start Date End Date Hector Currie MD [address] [facility] [place] [address] PCP - General Internal Medicine 10/06/17 Marketing Liaison Relationship Specialty Start Date End Date Hector Currie MD [address] [facility] [place] [address] PCP - General Internal Medicine 10/06/17 Marketing Liaison Relationship Specialty Start Date End Date Hector Currie MD [address] [facility] [place] [address] PCP - General Internal Medicine 10/06/17 Marketing Liaison Relationship Specialty Start Date End Date Hector Currie MD [address] [facility] [place] [address] PCP - General Internal Medicine 10/06/17 Marketing Liaison Relationship Specialty Start Date End Date Hector Currie MD [address] [facility] [place] [address] PCP - General Internal Medicine 10/06/17 Sarah Herrmann, SALES LEAD.HEALTH CARE SPECIALIST [address] [facility] [place] [address] Smog Technician Internal Medicine 08/01/24 Liudmila Breaux, SALES LEAD.RETAIL SALES MERCHANDISER [address] [place] [address] Smog Technician Internal Medicine 08/01/24 Marketing Liaison Relationship Specialty Start Date End Date Hector Currie MD [address] [facility] [place] [address] PCP - General Internal Medicine 10/06/17 Sarah Herrmann, SALES LEAD.HEALTH CARE SPECIALIST [address] [facility] [place] [address] Smog Technician Internal Medicine 08/01/24 Liudmila Breaux SALES LEAD.RETAIL SALES MERCHANDISER [address] [place] [address] [facility] Internal Medicine 08/01/24 Marketing Liaison Relationship Specialty Start Date End Date Hector Currie MD [address] [place] [address] PCP - General Internal Medicine 10/06/17 Sarah Herrmann, SALES LEAD.HEALTH CARE SPECIALIST [address] [place] [address] Smog Technician Internal Medicine 08/01/24 Liudmila Breaux SALES LEAD.RETAIL SALES MERCHANDISER [address] [place] [address] [facility] Internal Medicine 08/01/24 Marketing Liaison Relationship Specialty Start Date End Date Hector Currie MD [address] [place] [address] PCP - General Internal Medicine 10/06/17 Sarah Herrmann, SALES LEAD.HEALTH CARE SPECIALIST [address] [facility] [place] [address] Smog Technician Internal Medicine 08/01/24 Liudmila Breaux SALES LEAD.RETAIL SALES MERCHANDISER [address] [place] [address] Smog Technician Internal Medicine 08/01/24 Marketing Liaison Relationship Specialty Start Date End Date Hector Currie MD [address] [place], [place] [address] PCP - General Internal Medicine 10/06/17 Sarah Herrmann, SALES LEAD.HEALTH CARE SPECIALIST [address] [place] [address] Smog Technician Internal Medicine 08/01/24 Liudmila Breaux, SALES LEAD.RETAIL SALES MERCHANDISER [address] [place] [address] Smog Technician Internal Medicine 08/01/24 Marketing Liaison Relationship Specialty Start Date End Date Hector Currie MD [address] [place] [address] PCP - General Internal Medicine 10/06/17 Sarah Herrmann, SALES LEAD.HEALTH CARE SPECIALIST [address] [place] [address] [facility] Internal Medicine 08/01/24 Team Status: Inactive Member Role Status Dates Dr. Hector Currie MD Primary Care Provider Active Start: November 30, 2024 End: November 30, 2024 Dr. Rachid Mary MD Attending Provider Active Start: November 30, 2024 End: November 30, 2024 Dr. Rachid Mary MD Referring Provider Active Start: November 30, 2024 End: November 30, 2024 Marketing Liaison Relationship Specialty Start Date End Date Hector Currie MD [address] [place], [place] [address] PCP - General Internal Medicine 10/06/17 Sarah Herrmann APRN.HEALTH CARE SPECIALIST [address] [facility] [place] [address] Smog Technician Internal Medicine 08/01/24 Liudmila Breaux APRN.RETAIL SALES MERCHANDISER [address] [facility] [place] [address] Smog Technician Internal Medicine 08/01/24 11/11/24 Liudmila Breaux APRN.RETAIL SALES MERCHANDISER [address] [facility] [place] [address] [facility] Internal Medicine 11/15/24 Marketing Liaison Relationship Specialty Start Date End Date Hector Currie MD [address] [facility] [place] [address] PCP - General Internal Medicine 10/06/17 Sarah Herrmann APRN.HEALTH CARE SPECIALIST [address] [facility] [place] [address] [facility] Internal Medicine 08/01/24 Liudmila Breaux APRN.RETAIL SALES MERCHANDISER [address] [facility] [place] [address] [facility] Internal Medicine 11/15/24 Marketing Liaison Relationship Specialty Start Date End Date Hector Currie MD [address] [facility] [place] [address] PCP - General Internal Medicine 10/06/17 Liudmila Breaux APRN.RETAIL SALES MERCHANDISER [address] [facility] [place] [address] Smog Technician Internal Medicine 11/15/24 Sarah Herrmann APRN.HEALTH CARE SPECIALIST [address] [facility] [place] [address] Smog Technician Internal Medicine 01/11/25 Marketing Liaison Relationship Specialty Start Date End Date Hector Currie MD [address] [place] [address] PCP - General Internal Medicine 10/06/17 Sarah Herrmann APRN.HEALTH CARE SPECIALIST [address] [place] [address] Smog Technician Internal Medicine 08/01/24 01/10/25 Liudmila Breaux APRN.RETAIL SALES MERCHANDISER [address] [place] [address] Smog Technician Internal Medicine 11/15/24 Sarah Herrmann APRN.HEALTH CARE SPECIALIST [address] [place] [address] Smog Technician Internal Medicine 01/11/25 Marketing Liaison Relationship Specialty Start Date End Date Hector Currie MD [address] [place] [address] PCP - General Internal Medicine 10/06/17 Liudmila Breaux APRN.RETAIL SALES MERCHANDISER [address] [place] [address] Smog Technician Internal Medicine 11/15/24 Sarah Herrmann, SALES LEAD.HEALTH CARE SPECIALIST [address] [place] [address] Smog Technician Internal Medicine 01/11/25 Marketing Liaison Relationship Specialty Start Date End Date Hector Currie MD [address] [place] [address] PCP - General Internal Medicine 10/06/17 Liudmila Breaux APRN.RETAIL SALES MERCHANDISER [address] [place], [place] [address] Smog Technician Internal Medicine 11/15/24 Sarah Herrmann APRN.HEALTH CARE SPECIALIST [address] [place], [place] [address] [facility] Internal Medicine 01/11/25 Goals (unrecognized section and content) Goals may be documented in a n alternate sectionGoals may be documented in an alternate sectionGoals may be documented in an alternate sectionGoals may be documented in an alternate sectionGoals may be documented in an alternate section FOR RECORDS PERTAINING TO PATIENTS WHO ARE OR HAVE BEEN ENROLLED IN A CHEMICAL DEPENDENCY/SUBSTANCEABUSE PROGRAM, SOME INFORMATION MAY BE OMITTED. This clinical summary was aggregated from multiple sources. Caution should be exercised in using it in the provision of clinical care. This summary normalizes information from multiple sources, and as a consequence, information in this document may materially change the coding, format and clinical context of patient data. In addition, data may be omitted in some cases. CLINICAL DECISIONS SHOULD BE BASED ON THE PRIMARY CLINICAL RECORDS. [employer] [facility]. provides no warranty or guarantee of the accuracy or completeness of information in this document.
== END | disposition home or self-care (01) ==
PROVIDERS: PCP Internal Medicine; Visit Provider Internal Medicine
DX: Z46.89 Encounter for fitting and adjustment of other specified devices (principal)

== ENCOUNTER → 2025-06-08 | Outpatient (CLI) | payer MEDICARE, MEDICAID, SELFPAY | END | disposition home or self-care (01) | LOC: SL 13:06 | PROVIDERS: PCP Internal Medicine; Referring Provider Internal Medicine; Visit Provider Internal Medicine | DX: G47.33 Obstructive sleep apnea (adult) (pediatric) (principal); Z68.42 Body mass index [BMI] 45.0-49.9, adult; E11.9 Type 2 diabetes mellitus without complications; I10 Essential (primary) hypertension; J45.20 Mild intermittent asthma, uncomplicated; F71 Moderate intellectual disabilities; R32 Unspecified urinary incontinence; E66.812 Obesity, class 2 | CPT/HCPCS: 95811 ==

== ENCOUNTER → 2025-06-29 | Outpatient (CLI) | payer MEDICARE, MEDICAID, SELFPAY ==
--- OUTSIDE RECORDS SUMMARY | 2025-06-29 09:49 | XMS RPT_ITS | CCD ---
Author Organization [facility] Care Team Providers Care Insurance Business Analyst Name Role Phone Anneliese Fraser Unavailable Anneliese Fraser Unavailable FraserAnneliese Unavailable Yesenia Samaniego Unavailable Hector Currie MD Primary Care Provider Hector Currie MD Primary Care Provider Hector Currie MD Primary Care Provider Hector Currie MD Primary Care Provider Herrmann INDUSTRIAL REGISTERED NURSE.SALES SUPPORT REP, Sarah Unavailable Lisa INDUSTRIAL REGISTERED NURSE.STENOGRAPHER SECRETARY, Liudmila Unavailable Dr. Hector Currie MD Primary Care Provider [phone] Dr. Rachid Mary MD Attending Provider Dr. Rachid Mary MD Referring Provider Lisa INDUSTRIAL REGISTERED NURSE.STENOGRAPHER SECRETARY, Liudmila Unavailable Lisa INDUSTRIAL REGISTERED NURSE.STENOGRAPHER SECRETARY, Liudmila Unavailable Herrmann INDUSTRIAL REGISTERED NURSE.SALES SUPPORT REP, Sarah Unavailable Herrmann INDUSTRIAL REGISTERED NURSE.SALES SUPPORT REP, Sarah Unavailable Rachid Mary Attending Unavailable Rachid Mary Referring Unavailable Talampas, Hector D Primary Care Unavailable Talampjulia, Hector D Attending Unavailable Talampjulia, Hector D Primary Care Unavailable Rinkuampjulia, Hector D Primary Care Unavailable Sarah Herrmann NP Attending Unavailable Talampas, Hector D Attending Unavailable Talampas, Hector D Referring Unavailable Talampas, Hector D Primary Care Unavailable Talampas, Hector D Attending Unavailable Talampas, Hector D Primary Care Unavailable TALAMPAS, HECTOR D Primary Care Unavailable HERRMANN, SARAH Attending Unavailable TALAMPAS, HECTOR D Primary Care Unavailable HERRMANN, SARAH Referring Unavailable TALAMPAS, HECTOR D Primary Care Unavailable HERRMANN, SARAH Attending Unavailable SELF Referring Unavailable HERRMANN, SARAH Referring Unavailable TALAMPAS, HECTOR D Primary Care Unavailable TALAMPAS, HECTOR D Primary Care Unavailable TALAMPAS, HECTOR D Primary Care Unavailable TALAMPAS, HECTOR D Referring Unavailable TALAMPAS, HECTOR D Primary Care Unavailable TALAMPAS, HECTOR D Attending Unavailable TALAMPAS, HECTOR D Primary Care Unavailable TALAMPAS, HECTOR D Referring Unavailable TALAMPAS, HECTOR D Primary Care Unavailable Allergies Allergy Classification Reported Allergen(s) Allergy Type Date of Onset Reaction(s) Facility (20 sources) Seasonal allergy; Translations: [SEASONAL ALLERGIES] Allergy to substance 9 Other: See Comments [facility] Work Phone: Medications Current Medications Medication [...] Comment on above: Take 1 tablet by [facility] two times a day for 5 days. cephalexin 500 mg oral capsule (1 source) Cephalosporin Antibacterial Start: 12-17-2022 End: 12-24-2022 take 1 capsule by mouth three times daily cephALEXin (KEFLEX) 500 mg capsule Take 1 capsule by mouth three times daily for 7 days. 21 capsule 0 12/17/2022 12/24/2022 Active Comment on above: Take 1 capsule by mo [facility] three times daily for 7 days. citalopram [...] Start: 02-08-2016 take 2 capsules by m outh three times daily at mealtime Gabapentin 100 [...] Active Start: 08-18-2024 take 1 tablet by [facility] once daily lisinopril (ZESTRIL) 10 mg tablet [...] mg lisinopril once daily 30 tablet 11 10/14/2021 07/22/2022 Discontinued Start: 07-11-2021 End: 08-15-2024 [...] Discontinued Start: 07-02-2017 EC-NAPROSYN 50 0 MG [facility] NAPROXEN [id number] Rita Almodovar Comment on above: Take 1 [...] by mouth once daily. 30 capsule 11 09/17/2022 Active Start: 12-03-2021 End: 09-17-2022 take 1 capsule by mouth once daily omeprazole (PRILOSEC) 20 mg capsule Take 1 capsule by mouth once daily. 30 capsule 02/11/2022 07/22/2022 Discontinued Comment on above: Take 1 capsule by mo [facility] once daily. oseltamivir 75 mg oral capsule (1 source) Neuraminidase Inhibitor Start: 10-10-19 End: 10-15-19 take 1 capsule by mouth twice daily oseltamivir (TAMIFLU) 75 mg capsule Indications: Influenza A Take 1 capsule by mouth two times a day for 5 days. 10 capsule 10/10/2024 10/15/2024 Active perflutren lipid microspheres 1.3 mL in NaCl (PF) 0.9% 10 mL injection (DEFINBag Borrow or Steal) (19 sources) Start: 04-29-20 End: 07-29-20 perflutren lipid microspheres 1.3 mL in NaCl (PF) 0.9% 10 mL injection (CE2 [employer]) risperiDONE 3 mg oral tablet (20 sources) Atypical Antipsychotic Start: 11-01-19 take 1 tablet by mouth twice daily risperiDONE (RISPERDAL) 3 mg tablet Take 1 tablet by mouth twice daily. 11/01/2019 Active Start: 07-02-2017 RISPERDAL 2 MG TABS RISPERIDONE [id number] Rita Almodovar Start: 02-08-2016 take 1 tablet by [facility]ta once daily Risperidone (Risperdal) 3 MG tablet [...] topical cream (20 sources) Corticosteroid Start: 08-18-20 24 triamcinolone (KENALOG) 0.025 % cream Indications: Rash [...] Comment on above: Take 1,000 mg by [facility] twice daily. Completed/Discontinued Medications Medication Drug Class(es) Dates Sig (Normalized) Sig (Original) acetaminophen 325 mg / HYDROcodone bitartrate 5 mg oral tablet (4 sources) Opioid Agonist Start: 07-02-2017 NORCO 5-325 MG TABS HYDROCODONE-ACETAM INOPHEN [id number] Rita Kevon Almodovar [id number] 200 actuat albuterol 0.09 mg/actuat metered dose [...] CYCLOBENZAPRINE HCL 10 MG TABS CYCLOBENZAPRINE HCL [id number] Rita Almodovar 0.5 ml dulaglutide 3 mg/ml [...] tablet by balta th. polyethylene glycol 3350 28903 mg powder for oral solution (6 sources) [...] current use of drug therapy; Translations: [Other chcf (current) drug therapy] 03-26-2024 Episodic Other aftercare (1 source) Other chcf (current) drug therapy; Translations: [On director long term care drug therapy] Onset: 5 Episodic Other congenital anomalies (20 sources) Congenital [...] Translations: [Acute upper respiratory infection, unspecified] Episodic Rehabilitation care; fitting of prostheses; and adjustment of devices (1 source) Encounter for fitting and adjustment of other specified devices; Translations: [Encounter for fitting and adjustment of other specified devices] Onset: 5 Chronic Residual codes; unclassified (20 sources) Obstructive sleep [...] Test Name Value Interpretation Reference Range Facility [facility] 06-19-[address] [facility] Telephone (INTMWS) NIKO BROOKE ([id number]) 1990 Deedee CHRISTOPHER Date Time Provider Department 06/19/25 HECTOR CURRIE INTMWS During your visit today, we recorded the following information about you: Deedee Garcia, RN 06/19/2025 8:27 AM Signed Mother asking pcp to fax order for CPAP along with documentation to [facility]. The only Rx in chart was escripted to [facility] and they do not carry these. Reports pt completed the second sleep study. Yesenia Jones MA 06/19/2025 11:35 AM Signed Patient has been identified by name and date of : yes Patient phones for refill(s): Requested Prescriptions Pending Prescriptions Disp Refills CPAP/BIPAP/OTHER 1 each 0 Sig: Bi-level PAP at following settings: IPAP 17 cm water, EPAP 11 cm water Date of last office visit in primary care: 04/21/2025 Date of next office visit in primary care: 08/16/2025 Please advise. Thank you. Yesenia Jones MA. Hector Currie MD 06/21/2025 7:50 PM Signed Patient's request for medication is as follows: Requested Prescriptions Signed Prescriptions Disp Refills CPAP/BIPAP/OTHER 1 each 0 Sig: Bi-level PAP at following settings: IPAP 17 cm water, EPAP 11 cm water Authorizing Provider: HECTOR CURRIE Prescription(s) printed as above. Please process accordingly. Print Sarah's progress note from 04/21/25 Jael Chapman LPN 06/22/2025 2:01 PM Signed all was already faxed back to [facility] sleep lab. They were going to follow up and address all. Radha lBankenship, RN 06/22/2025 3:37 PM Signed mother notified of information and will ally [facility] sleep lab for information Allergies As of Date: 06/19/2025 Noted Allergy Reaction SEASONAL ALLERGIES 07/06/2019 16 - Unknown Date Reviewed: 04/21/2025 Reviewed by: Paola Tellez LPN - Fully Assessed Reason for Visit: CPAP- DASCO [Other] Visit Diagnosis:DWIGHT (obstructive sleep apnea) [G47.33] Order(s):CPAP/BIPAP/O THERBi-level PAP at following settings: IPAP 17 cm water, EPAP 11 cm waterDisp: 1 eachRfl: 0 Prescriptions as of 06/22/2025 - CPAP/BIPAP/OTHER Bi-level PAP at following settings: IPAP 17 cm water, EPAP 11 cm water - lisinopril (ZESTRIL) 10 mg tablet Take 1 tablet by mouth once daily. Take with 5 mg lisinopril once daily - dulaglutide (TRULICITY) 4.5 mg/0.5 mL pen [...] twice daily. Problem List As Of Date 06/19/2025 Noted Resolved Reactive depression [F32.9] 04/18/2006 Attention [...] Refills Start End CPAP/BIPAP/OTHER 1 ea* 0 06/21/2025 Class: Print RX Sig: Bi-level PAP at following settings: IPAP 17 cm water, EPAP 11 cm water Medications Discontinued During This Encounter Prescriptions - CPAP/BIPAP/OTHER (Discontinued) Bi-level PAP at following settings: IPAP 17 cm water, EPAP 11 cm water (more content not included)... Normal [facility] Ammonia Plas-sCncon 06-10-20 25 Ammonia (P) [Moles/Vol] 49 umol/L Normal 16-60 [facility] Comment on above: Order Comment: Speci men Type: BLOOD SPECIMENOrdering Facility: [facility] Address: [address] [place] [address] Performed By: #### 1 6362-6 ####[facility] LABCLIA [id number] [place] [address] [place] CBC W Auto Differential pane l (Bld)on 06-10-2025 Basophils (Bld) [#/Vol] 0.05 10*3/uL Normal <0.11 [facility] Comment on above: Order Comment: Speci men Type: BLOOD SPECIMENOrdering Facility: [facility] Address: [address] [place] [address] Performed By: #### 5 7021-8 ####[facility] LABCLIA [id number] [place] [address] [place] Basophils/100 WBC (Bld) 0.7 % Normal [facility] Comment on above: Order Comment: Speci men Type: BLOOD SPECIMENOrdering Facility: [facility] Address: [address] [place] [address] Performed By: #### 5 7021-8 ####[facility] LABCLIA [id number] [place] [id number] [place] Differential cell count method Nom (Bld) Auto Normal [facility] Comment on above: Order Comment: Speci men Type: BLOOD SPECIMENOrdering Facility: [facility] Address: [address] [place] [address] Performed By: #### 5 7021-8 ####[facility] LABCLIA [id number] [place] [address] [place] Eosinophils (Bld) [#/Vol] 0.13 10*3/uL Normal <0.46 [facility] Comment on above: Order Comment: Speci men Type: BLOOD SPECIMENOrdering Facility: [facility] Address: [address] [place] [address] Performed By: #### 5 7021-8 ####[facility] LABCLIA [id number] [place] [address] [place] Eosinophils/100 WBC (Bld) 1.7 % Normal [facility] Comment on above: Order Comment: Speci men Type: BLOOD SPECIMENOrdering Facility: [facility] Address: [address] [place] [address] Performed By: #### 5 7021-8 ####[facility] LABCLIA [id number] [place] [address] [place] Erythrocyte distribution width (RBC) [Ratio] 11.7 % Normal 11.5-15.0 [facility] Comment on above: Order Comment: Speci men Type: BLOOD SPECIMENOrdering Facility: [facility] Address: [address] [place] [address] Performed By: #### 5 7021-8 ####[facility] LABCLIA [id number] [place] [id number] [place] Hematocrit (Bld) [Volume fraction] 41.8 % Normal 39.0-51.0 [facility] Comment on above: Order Comment: Speci men Type: BLOOD SPECIMENOrdering Facility: [facility] Address: [address] [place] [address] Performed By: #### 5 7021-8 ####[facility] LABCLIA [id number] [place] [address] [place] Hemoglobin (Bld) [Mass/Vol] 14.3 g/dL Normal 13.0-17.0 [facility] Comment on above: Order Comment: Speci men Type: BLOOD SPECIMENOrdering Facility: [facility] Address: [address] [place] [address] Performed By: #### 5 7021-8 ####[facility] LABCLIA [id number] [place] [address] [place] Immature granulocytes (Bld) [#/Vol] 0.11 10*3/uL High <0.10 [facility] Comment on above: Order Comment: Speci men Type: BLOOD SPECIMENOrdering Facility: [facility] Address: [address] [place] [address] Performed By: #### 5 7021-8 ####[facility] LABCLIA [id number] [place] [address] [place] Immature granulocytes/100 WBC (Bld) 1.5 % Normal [facility] Comment on above: Order Comment: Speci men Type: BLOOD SPECIMENOrdering Facility: [facility] Address: [address] [place] [address] Performed By: #### 5 7021-8 ####[facility] LABCLIA [id number] [place] [address] [place] Lymphocytes (Bld) [#/Vol] 2.12 10*3/uL Normal 1.00-4.00 [facility] Comment on above: Order Comment: Speci men Type: BLOOD SPECIMENOrdering Facility: [facility] Address: [address] [place] [address] Performed By: #### 5 7021-8 ####[facility] LABCLIA [id number] [place] [address] [place] Lymphocytes/100 WBC (Bld) 28.2 % Normal [facility] Comment on above: Order Comment: Speci men Type: BLOOD SPECIMENOrdering Facility: [facility] Address: [address] [place] [address] Performed By: #### 5 7021-8 ####[facility] LABCLIA [id number] [place] [address] [place] MCH (RBC) [Entitic mass] 29.6 pg Normal 26.0-34.0 [facility] Comment on above: Order Comment: Speci men Type: BLOOD SPECIMENOrdering Facility: [facility] Address: [address] [place] [address] Performed By: #### 5 7021-8 ####[facility] LABCLIA [id number] [place] [address] [place] MCHC (RBC) [Mass/Vol] 34.2 g/dL Normal 30.5-36.0 [facility] Comment on above: Order Comment: Speci men Type: BLOOD SPECIMENOrdering Facility: [facility] Address: [address] [place] [address] Performed By: #### 5 7021-8 ####[facility] LABCLIA [id number] [place] [address] [place] MCV (RBC) [Entitic vol] 86.5 fL Normal 80.0-100.0 [facility] Comment on above: Order Comment: Speci men Type: BLOOD SPECIMENOrdering Facility: [facility] Address: [address] [place] [address] Performed By: #### 5 7021-8 ####[facility] LABCLIA [id number] [place] [address] [place] Monocytes (Bld) [#/Vol] 0.55 10*3/uL Normal <0.87 [facility] Comment on above: Order Comment: Speci men Type: BLOOD SPECIMENOrdering Facility: [facility] Address: [address] [place] [address] Performed By: #### 5 7021-8 ####[facility] LABCLIA [id number] [place] [address] [place] Monocytes/100 WBC (Bld) 7.3 % Normal [facility] Comment on above: Order Comment: Speci men Type: BLOOD SPECIMENOrdering Facility: [facility] Address: [address] [place] [address] Performed By: #### 5 7021-8 ####[facility] LABCLIA [id number] [place] [address] [place] Neutrophils (Bld) [#/Vol] 4.56 10*3/uL Normal 1.45-7.50 [facility] Comment on above: Order Comment: Speci men Type: BLOOD SPECIMENOrdering Facility: [facility] Address: [address] [place] [address] Performed By: #### 5 7021-8 ####[facility] LABCLIA [id number] [place] [address] [place] Neutrophils/100 WBC (Bld) 60.6 % Normal [facility] Comment on above: Order Comment: Speci men Type: BLOOD SPECIMENOrdering Facility: [facility] Address: [address] [place] [address] Performed By: #### 5 7021-8 ####[facility] LABCLIA [id number] [place] [id number] [place] Nucleated RBC (Bld) [#/Vol] 10*3/uL Normal <0.01 [facility] Comment on above: Order Comment: Speci men Type: BLOOD SPECIMENOrdering Facility: [facility] Address: [address] [place] [address] Performed By: #### 5 7021-8 ####[facility] LABCLIA [id number] [place] [id number] [place] Nucleated RBC/100 WBC (Bld) [Ratio] 0.0 /[address] [facility] Comment on above: Order Comment: Speci men Type: BLOOD SPECIMENOrdering Facility: [facility] Address: [address] [place] [address] Performed By: #### 5 7021-8 ####[facility] LABCLIA [id number] [place] [address] [place] Platelet mean volume (Bld) [Entitic vol] 11.5 fL Normal 9.0-12.7 [facility] Comment on above: Order Comment: Speci men Type: BLOOD SPECIMENOrdering Facility: [facility] Address: [address] [place] [address] Performed By: #### 5 7021-8 ####[facility] LABCLIA [id number] [place] [address] [place] Platelets (Bld) [#/Vol] 192 10*3/uL Normal 150-400 [facility] Comment on above: Order Comment: Speci men Type: BLOOD SPECIMENOrdering Facility: [facility] Address: [address] [place] [address] Performed By: #### 5 7021-8 ####[facility] LABCLIA [id number] [place] [id number] [place] RBC (Bld) [#/Vol] 4.83 10*6/uL Normal 4.20-6.00 [facility] Comment on above: Order Comment: Speci men Type: BLOOD SPECIMENOrdering Facility: [facility] Address: [address] [place] [address] Performed By: #### 5 7021-8 ####[facility] LABCLIA [id number] [place] [id number] [place] WBC (Bld) [#/Vol] 7.52 10*3/uL Normal 3.70-11.00 [facility] Comment on above: Order Comment: Speci men Type: BLOOD SPECIMENOrdering Facility: [facility] Address: [address] [place] [address] Performed By: #### 5 7021-8 ####[facility] LABCLIA [id number] [place] [id number] [place] Comprehensive metabolic 2000 panelon 06-10-2025 Albumin [Mass/Vol] 3.9 g/dL Normal 3.9-4.9 [facility] Comment on above: Order Comment: Speci men Type: BLOOD SPECIMENOrdering Facility: [facility] Address: [address] [place], [place] [id number] Performed By: #### 3 016-3, 60601-5, 23277-5 ####[facility] LABCLIA [id number] [place] [id number] [place] ALP [Catalytic activity/Vol] 86 U/L Normal 38-113 [facility] Comment on above: Order Comment: Speci men Type: BLOOD SPECIMENOrdering Facility: [facility] Address: [address] [place] [address] Performed By: #### 3 016-3, 07821-1, 96402-6 ####[facility] LABCLIA [id number] [place] [id number] [place] ALT [Catalytic activity/Vol] 43 U/L Normal 10-54 [facility] Comment on above: Order Comment: Speci men Type: BLOOD SPECIMENOrdering Facility: [facility] Address: [address] [place] [address] Performed By: #### 3 016-3, 58526-4, 50591-4 ####[facility] LABCLIA [id number] [place] [id number] [place] Anion gap [Moles/Vol] 13 mmol/L Normal 8-15 [facility] Comment on above: Order Comment: Speci men Type: BLOOD SPECIMENOrdering Facility: [facility] Address: [address] [place] [address] Performed By: #### 3 016-3, 06058-9, 15464-5 ####[facility] LABCLIA [id number] [place] [id number] [place] AST [Catalytic activity/Vol] 37 U/L Normal 14-40 [facility] Comment on above: Order Comment: Speci men Type: BLOOD SPECIMENOrdering Facility: [facility] Address: [address] [place] [address] Performed By: #### 3 016-3, , 31727-7 ####[facility] LABCLIA [id number] [place] [id number] [place] Bilirubin [Mass/Vol] 0.3 mg/dL Normal 0.2-1.3 [facility] Comment on above: Order Comment: Speci men Type: BLOOD SPECIMENOrdering Facility: [facility] Address: [address] [place], [place] [id number] Performed By: #### 3 016-3, 60239-5, 42545-9 ####[facility] LABCLIA [id number] [place] [id number] [place] Calcium [Mass/Vol] 9.0 mg/dL Normal 8.5-10.2 [facility] Comment on above: Order Comment: Speci men Type: BLOOD SPECIMENOrdering Facility: [facility] Address: [address] [place], [place] [id number] Performed By: #### 3 016-3, 74257-9, 76453-2 ####[facility] LABCLIA [id number] [place] [id number] [place] Chloride [Moles/Vol] 101 mmol/L Normal 98-107 [facility] Comment on above: Order Comment: Speci men Type: BLOOD SPECIMENOrdering Facility: [facility] Address: [address] [place] [address] Performed By: #### 3 016-3, 66612-3, 27702-6 ####[facility] LABCLIA [id number] [place] [id number] [place] CO2 [Moles/Vol] 25 mmol/L Normal 22-30 [facility] Comment on above: Order Comment: Speci men Type: BLOOD SPECIMENOrdering Facility: [facility] Address: [address] [place] [address] Performed By: #### 3 016-3, 02849-6, 29989-2 ####[facility] LABCLIA [id number] [place] [address] [place] Creatinine [Mass/Vol] 0.58 mg/dL Low 0.73-1.22 [facility] Comment on above: Order Comment: Speci men Type: BLOOD SPECIMENOrdering Facility: [facility] Address: [address] [place] [address] Performed By: #### 3 016-3, 33350-5, 65864-4 ####[facility] LABCLIA [id number] [place] [address] [place] eGFRcr SerPlBld CKD-EPI 2020 132 mL/min/1.73m??? Normal >=60 [facility] Comment on above: Order Comment: Speci men Type: BLOOD SPECIMENOrdering Facility: [facility] Address: [address] [place] [address] Result Comment: Anuradha mated Glomerular Filtration Rate [...] accurately reflect actual GFR. Performed By: #### 3 016-3, , 36703-5 ####[facility] LABCLIA [id number] [place] [address] [place] [place] Glucose [Mass/Vol] 126 mg/dL High 74-99 [facility] Comment on above: Order Comment: Speci men Type: BLOOD SPECIMENOrdering Facility: [facility] Address: [address] [place] [address] Result Comment: The [place] Diabetes Association (ADA) [...] Diabetes Care. 2016.39(Suppl 1). Performed By: #### 3 016-3, , ####[facility] LABCLIA [id number] [place] [address] [place] Potassium [Moles/Vol] 4.5 mmol/L Normal 3.7-5.1 [facility] Comment on above: Order Comment: Speci men Type: BLOOD SPECIMENOrdering Facility: [facility] Address: [address] [place] [address] Performed By: #### 3 016-3, 31464-4, ####[facility] LABCLIA [id number] [place] [address] [place] Protein [Mass/Vol] 6.3 g/dL Normal 6.3-8.0 [facility] Comment on above: Order Comment: Speci men Type: BLOOD SPECIMENOrdering Facility: [facility] Address: [address] [place] [address] Performed By: #### 3 016-3, 19899-8, 75052-1 ####[facility] LABCLIA [id number] [place] [address] [place] Sodium [Moles/Vol] 139 mmol/L Normal 136-144 [facility] Comment on above: Order Comment: Speci men Type: BLOOD SPECIMENOrdering Facility: [facility] Address: [address] [place] [address] Performed By: #### 3 016-3, 84721-6, 56605-5 ####[facility] LABCLIA [id number] [place] [address] [place] Urea nitrogen [Mass/Vol] 8 mg/dL Low 9-24 [facility] Comment on above: Order Comment: Speci men Type: BLOOD SPECIMENOrdering Facility: [facility] Address: [address] [place] [address] Performed By: #### 3 016-3, 71912-6, 21675-3 ####[facility] LABCLIA [id number] [place] [address] [place] HbA1c (Bld)on 06-10-2025 Average glucose Estimated from glycated hemoglobin (Bld) [Mass/Vol] 111 mg/dL Normal [facility] Comment on above: Order Comment: Speci men Type: BLOOD SPECIMENOrdering Facility: [facility] Address: [address] [place] [address] Result Comment: eAG: (Estimated average glucose) is a calculated value from HgbA1c and is security representative of the average blood glucose level in the last 2-3 month period. Performed By: #### 5 5454-3 ####[facility] LABCLIA [id number] [place] [id number] [place] HbA1c (Bld) [Mass fraction] 5.5 % Normal 4.3-5.6 [facility] Comment on above: Order Comment: Giannai men Type: BLOOD SPECIMENOrdering Facility: [facility] Address: [address] [place] [address] Result Comment: Amer ican Diabetes Association guidelines indicate that patients with HgbA1c in the range 5.7-6.4% are at increased risk for development of diabetes, and intervention by lifestyle modification may be beneficial. HgbA1c greater or equal to 6.5% is considered diagnostic of diabetes. Performed By: #### 5 5454-3 ####[facility] LABCLIA [id number] [place] [address] [place] Lipid 1996 panelon 5 Cholesterol [Mass/Vol] 182 mg/dL Normal <200 [facility] Comment on above: Order Comment: Giannai men Type: BLOOD SPECIMENOrdering Facility: [facility] Address: [address] [place] [address] Result Comment: <200 mg/dL, Desirable 200-239 mg/dL, Borderline high >239 mg/dL, High Performed By: #### 3 016-3, 34169-7, 02248-5 ####[facility] LABCLIA [id number] [place] [address] [place] Cholesterol in HDL [Mass/Vol] 27 mg/dL Low >39 [facility] Comment on above: Order Comment: Giannai men Type: BLOOD SPECIMENOrdering Facility: [facility] Address: [address] [place] [address] Result Comment: 40-5 9 mg/dL, Acceptable >59 mg/dL, High: Negative risk factor for coronary heart disease <40 mg/dL, Low: Positive risk factor for coronary heart disease Performed By: #### 3 016-3, 28127-8, 03297-8 ####[facility] LABCLIA [id number] [place] [id number] [place] Cholesterol in LDL [Mass/Vol] 111 mg/dL High <100 [facility] Comment on above: Order Comment: Speci men Type: BLOOD SPECIMENOrdering Facility: [facility] Address: [address] [place] [address] Result Comment: <100 mg/dL, Optimal 100-129 mg/dL, Near optimal/above optimal 130-159 mg/dL, Borderline high 160-189 mg/dL, High >189 mg/dL, Very high Secondary prevention optimal LDL Cholesterol levels are recommended to be <70 mg/dL LDL cholesterol is calculated using the Fraser-NIH equation. Performed By: #### 3 016-3, 00035-5, 89366-7 ####[facility] LABCLIA [id number] [place] [address] [place] Cholesterol in LDL/Cholesterol in HDL [Mass ratio] 4.11 {ratio} High <2.54 [facility] Comment on above: Order Comment: Speci men Type: BLOOD SPECIMENOrdering Facility: [facility] Address: [address] [place] [address] Result Comment: Refe rence: 1. National Cholesterol Education Program ATP III Guideline At-A-Glance Quick Desk Reference: National Heart, Lung, and Blood Hartman. National Institutes of Health. 2001: NIH Publication No. 01-3305. 2. An International Atherosclerosis Society position paper: global recommendations for the management of dyslipidemia: executive summary, Atherosclerosis. 2014: 232(2):410-413. Performed By: #### 3 016-3, 67623-6, 15150-7 ####[facility] LABCLIA [id number] [place] [id number] [place] Cholesterol in VLDL [Mass/Vol] 43 mg/dL High <30 [facility] Comment on above: Order Comment: Speci men Type: BLOOD SPECIMENOrdering Facility: [facility] Address: [address] [place] [address] Performed By: #### 3 016-3, 96613-4, 98019-2 ####[facility] LABCLIA [id number] [place] [address] [place] Cholesterol non HDL [Mass/Vol] 155 mg/dL High <130 [facility] Comment on above: Order Comment: Speci men Type: BLOOD SPECIMENOrdering Facility: [facility] Address: [address] [place] [address] Result Comment: <130 mg/dL, Optimal 130-159 mg/dL, Near optimal/above optimal 160-189 mg/dL, Borderline high 190-219 mg/dL, High >219 mg/dL, Very high Secondary prevention optimal non HDL Cholesterol levels are recommended to be <100 mg/dL Performed By: #### 3 016-3, 52303-9, 65306-2 ####[facility] LABCLIA [id number] [place] [address] [place] Cholesterol.total/ Cholesterol in HDL [Mass ratio] 6.74 {ratio} High <5.10 [facility] Comment on above: Order Comment: Speci men Type: BLOOD SPECIMENOrdering Facility: [facility] Address: [address] [place] [address] Performed By: #### 3 016-3, 77602-3, 46319-6 ####[facility] LABCLIA [id number] [place] [address] [place] FASTING TIME [address] [facility] Comment on above: Order Comment: Speci men Type: BLOOD SPECIMENOrdering Facility: [facility] Address: [address] [place] [address] Performed By: #### 3 016-3, 20604-6, 16011-4 ####[facility] LABCLIA [id number] [place] [id number] [place] Triglyceride [Mass/Vol] 253 mg/dL High <150 [facility] Comment on above: Order Comment: Speci men Type: BLOOD SPECIMENOrdering Facility: [facility] Address: [address] [place] [address] Result Comment: <150 mg/dL, Normal 150-199 mg/dL, Borderline high 200-499 mg/dL, High >499 mg/dL, Very high Performed By: #### 3 016-3, 13213-9, 00006-6 ####[facility] LABCLIA [id number] [place] [id number] [place] TSH SerPl-aCncon 06-10-2025 TSH Qn 2.130 m[IU]/L Normal 0.270-4.200 [facility] Comment on above: Order Comment: Speci men Type: BLOOD SPECIMENOrdering Facility: [facility] Address: [address] [place] [address] Performed By: #### 3 016-3, 59192-1, 41793-5 ####[facility] LABCLIA [id number] [address] Valproate SerPl-mCncon 06-10 Valproate [Mass/Vol] 66.1 ug/mL Normal 50.0-100.0 [facility] Comment on above: Order Comment: Speci men Type: BLOOD SPECIMENOrdering Facility: [facility] Address: [address] [place] [address] Result Comment: Refe rence ranges and high/low indicator flags are provided as general guidelines only. The treating physician must determine appropriate target levels/dosing based on the specific clinical situation. Performed By: #### 4 086-5 ####[facility] LABCLIA [id number] [address] [place] CNPNon 05-15-2025 CNPN Telephone (INTMWS) NIKO BROOKE ([id number]) 1990 M GRD Date Time Provider Department 05/15/25 [facility] INTMWS During your visit today, we recorded the following information about you: Deedee Garcia RN 05/15/2025 9:43 AM Signed Mother phoned asking polysomnogram / titration orders be send to [facility] Sleep lab. . Advised mother per previous encounter pt had a sleep study done at [facility] on 06/29/24 and that sleep study / bipap order was sent to [facility]. Mother will clarify with [facility] if pt actually needs to have another sleep study this soon and call back to let pcp office know if the orders actually do need to be faxed to [facility] sleep lab. Barbara Posada RN 05/15/2025 9:49 AM Signed Patient's mother calls back and states that she had talked to [facility] again. Insurance is requiring that patient get another sleep study done due to patient not being compliant. Mother asking if orders can be placed for sleep study and the orders be faxed to [facility] Sleep lab at [phone]. TYLER Babb Terri, MARTY.SALES SUPPORT REP 05/18/2025 4:38 PM Signed OK, order filed, please send to [facility] per request Amanda Lorenzana LPN 05/19/2025 10:47 AM Signed Order has been faxed to [facility] sleep lab at number below Carol Simon LPN 05/23/2025 3:38 PM Signed Patient mother Lanie calling asked when order was faxed to [facility]. 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 Telephone (INTMWS) NIKO BROOKE ([id number]) 1990 M GRD Date Time Provider Department 05/09/25 [facility] INTMWS During your visit today, we recorded the following information about you: Piotr Lindsey RN 05/09/2025 9:37 AM Signed Mother (Lanie) calls to report that [facility] received orders for C-Pap machine and supplies and are requiring a new sleep study before they are able to dispense a new machine. Lanie requests orders be placed and then call [phone] to schedule. Please review and advise, TYLER Gunderson [place], MA 05/12/2025 10:28 AM Addendum Patient had titration psg FOR BI-level PAP on 06/29/24 at [facility] and is scanned in already to file. Printed it recent sleep study updated bipap rx with pressure settings from 07/17 study Faxed both to [facility] Mother aware of everything above and notified patient will need follow up 30 days after receiving device since was un-compliant in past. GENARO Martinez Terri, APRN.SALES SUPPORT REP 05/15/2025 1:16 PM Signed Check to see [...] 11 cm water Cosign accepted by [facility][[id number]] on 05/20/2025 10:54 AM Medications Discontinued During This Encounter Prescriptions - CPAP/BIPAP/OTHER (Discontinued) Type .CPAPSettings into a note to see current settings/supplies/DME information. Encounter Status:Closed by YESENIA JONES on 05/12/25 [facility] ([id number]) 1990 M D Date Time Provider Department 05/05/25 [facility] INTMWS During your visit today, we recorded the following information about you: Piotr Lindsey RN 05/05/2025 5:05 PM Signed Mother (Lanie) calls to report that [facility] received Sleep Study results but not order for C-Pap or OV notes. Faxed to [phone] per request. Piotr Lindsey RN Allergies As of Date: 05/05/2025 Noted Allergy Reaction SEASONAL ALLERGIES 07/06/2019 16 - Unknown Date Reviewed: 04/21/2025 Reviewed by: Weeman, Paola, TICK INSPECTOR - Fully Assessed Reason for Visit: Orders [...] Encounter Status:Closed by PIOTR LINDSEY on 05/05/25 [facility] CNOVon 04-21-2025 CNOV Office Visit (INTMWS ) NIKO BROOKE ([id number]) 1990 Deedee Holden Date Time Provider Department 04/21/25 3:40 PM SARAH HERRMANN INTMWS During your visit today, we recorded the following information about you: Pulse Respiration Blood pressure Weight 103/minute 20/minute 109/78 163.8 kg Sarah Herrmann APRN.CNS 04/21/2025 4:26 PM Signed Subjective Patient ID: [...] abdominal pain. - Recent eye exam at [facility] on [address] showed minimal changes. - [...] sleep study was completed May 2024 at [facility]. BiPAP was recommended. Orders were sent. DME is [facility]. Diabetes: - Managed with Trulicity injections, which [...] diabetes me (more content not included)... Normal [facility] HbA1c (Bld)on 04-21-2025 Average glucose Estimated from glycated hemoglobin (Bld) [Mass/Vol] 117 mg/dL Normal [facility] Comment on above: Order Comment: Alo lemos Type: BLOOD SPECIMENOrdering Facility: [facility] Address: [address] [place] [address] Result Comment: eAG: (Estimated average glucose) is a calculated value from HgbA1c and is security representative of the average blood glucose level in the last 2-3 month period. Performed By: #### 5 5454-3 ####[facility] LABCLIA [id number] [place] [address] [place] [facility] HbA1c (Bld) [Mass fraction] 5.7 % High 4.3-5.6 [facility] Comment on above: Order Comment: Alo lemos Type: BLOOD SPECIMENOrdering Facility: [facility] Address: [address] [place] [address] Result Comment: Amer ican Diabetes Association guidelines indicate that patients with HgbA1c in the range 5.7-6.4% are at increased risk for development of diabetes, and intervention by lifestyle modification may be beneficial. HgbA1c greater or equal to 6.5% is considered diagnostic of diabetes. Performed By: #### 5 5454-3 ####[facility] LABCLIA [id number] [address] [place] CBC panel Auto (Bld)on 12-20 Erythrocyte distribution width (RBC) [Ratio] 12.0 % Normal 11.5-15.0 [facility] Comment on above: Order Comment: Speci men Type: BLOOD SPECIMENOrdering Facility: [facility] Address: [address] [place] [address] Performed By: #### 5 8410-2 ####[facility] LABIA [id number] [address] [place] Hematocrit (Bld) [Volume fraction] 42.6 % Normal 39.0-51.0 [facility] Comment on above: Order Comment: Speci men Type: BLOOD SPECIMENOrdering Facility: [facility] Address: [address] [place] [address] Performed By: #### 5 8410-2 ####[facility] LABCLIA [id number] [address] Hemoglobin (Bld) [Mass/Vol] 14.2 g/dL Normal 13.0-17.0 [facility] Comment on above: Order Comment: Speci men Type: BLOOD SPECIMENOrdering Facility: [facility] Address: [address] [place] [address] Performed By: #### 5 8410-2 ####[facility] LABIA [id number] [place] [address] [place] MCH (RBC) [Entitic mass] 28.9 pg Normal 26.0-34.0 [facility] Comment on above: Order Comment: Speci men Type: BLOOD SPECIMENOrdering Facility: [facility] Address: [address] [place] [address] Performed By: #### 5 8410-2 ####[facility] LABCLIA [id number] [place] [id number] [place] MCHC (RBC) [Mass/Vol] 33.3 g/dL Normal 30.5-36.0 [facility] Comment on above: Order Comment: Speci men Type: BLOOD SPECIMENOrdering Facility: [facility] Address: [address] [place] [address] Performed By: #### 5 8410-2 ####[facility] LABIA [id number] [address] [address] [place] MCV (RBC) [Entitic vol] 86.8 fL Normal 80.0-100.0 [facility] Comment on above: Order Comment: Speci men Type: BLOOD SPECIMENOrdering Facility: [facility] Address: [address] [place] [address] Performed By: #### 5 8410-2 ####[facility] LABIA [id number] [place] [address] [place] Nucleated RBC (Bld) [#/Vol] 10*3/uL Normal <0.01 [facility] Comment on above: Order Comment: Speci men Type: BLOOD SPECIMENOrdering Facility: [facility] Address: [address] [place] [address] Performed By: #### 5 8410-2 ####[facility] LABIA [id number] [place] [id number] [place] Platelet mean volume (Bld) [Entitic vol] 11.2 fL Normal 9.0-12.7 [facility] Comment on above: Order Comment: Speci men Type: BLOOD SPECIMENOrdering Facility: [facility] Address: [address] [place] [address] Performed By: #### 5 8410-2 ####[facility] LABIA [id number] [place] [id number] [place] Platelets (Bld) [#/Vol] 220 10*3/uL Normal 150-400 [facility] Comment on above: Order Comment: Speci men Type: BLOOD SPECIMENOrdering Facility: [facility] Address: [address] [place] [address] Performed By: #### 5 8410-2 ####[facility] LABCLIA [id number] [address] [address] [place] RBC (Bld) [#/Vol] 4.91 10*6/uL Normal 4.20-6.00 [facility] Comment on above: Order Comment: Speci men Type: BLOOD SPECIMENOrdering Facility: [facility] Address: [address] [place] [address] Performed By: #### 5 8410-2 ####[facility] LABIA [id number] [place] [id number] [place] WBC (Bld) [#/Vol] 10.84 10*3/uL Normal 3.70-11.00 [facility] Comment on above: Order Comment: Speci men Type: BLOOD SPECIMENOrdering Facility: [facility] Address: [address] [place] [address] Performed By: #### 5 8410-2 ####[facility] [id number] [place] [id number] [facility] CNOVon 12-20-2024 CNOV Office Visit (INTMWS ) NIKO BROOKE ([id number]) 1990 M GRD Date Time Provider Department 12/20/24 3:00 PM SARAH HERRMANN INTMWS During your visit today, we recorded the following information about you: Pulse Respiration Blood pressure Weight 106/minute 16/minute 118/78 162 kg Sarah Herrmann APRN.SALES SUPPORT REP 12/20/2024 4:25 PM Signed Subjective Patient ID: [...] therapy; patient reports effective management. Sarah Herrmann APRN.SALES SUPPORT REP Medical Decision Making: Problems: Moderate: 2+ stable chronic illnesses and 1+ chronic illnesses with change Risk: Moderate: Drug management Medical Decision Making Level: 4 - Moderate Allergies As of Date: 12/20/2024 Noted Allergy Reaction SEASONAL ALLERGIES 07/06/2019 16 - Unknown Date Reviewed: 12/20/2024 Reviewed by: Sarah Herrmann APRN.SALES SUPPORT REP - Fully Assessed Reason for Visit: Recheck [...] esophagitis pre (more content not included)... Normal [facility] Comprehensive metabolic 2000 panelon 12-20-2024 Albumin [Mass/Vol] 4.4 g/dL Normal 3.9-4.9 [facility] Comment on above: Order Comment: Speci men Type: BLOOD SPECIMENOrdering Facility: [facility] Address: [address] [place] [address] Performed By: #### L IPNF, ####[facility] LABCLIA [id number] [address] [address] [place] ALP [Catalytic activity/Vol] 66 U/L Normal 38-113 [facility] Comment on above: Order Comment: Speci men Type: BLOOD SPECIMENOrdering Facility: [facility] Address: [address] [place] [address] Performed By: #### L IPNF, ####[facility] LABCLIA [id number] [place] [id number] [place] ALT [Catalytic activity/Vol] 21 U/L Normal 10-54 [facility] Comment on above: Order Comment: Speci men Type: BLOOD SPECIMENOrdering Facility: [facility] Address: [address] [place] [address] Performed By: #### L IPNF, ####[facility] LABCLIA [id number] [place] [id number] [place] Anion gap [Moles/Vol] 12 mmol/L Normal 8-15 [facility] Comment on above: Order Comment: Speci men Type: BLOOD SPECIMENOrdering Facility: [facility] Address: [address] [place] [address] Performed By: #### L IPNF, ####[facility] LABCLIA [id number] [place] [id number] [place] AST [Catalytic activity/Vol] 20 U/L Normal 14-40 [facility] Comment on above: Order Comment: Speci men Type: BLOOD SPECIMENOrdering Facility: [facility] Address: [address] [place] [address] Performed By: #### L IPNF, ####[facility] LABCLIA [id number] [place] [id number] [place] Bilirubin [Mass/Vol] 0.3 mg/dL Normal 0.2-1.3 [facility] Comment on above: Order Comment: Speci men Type: BLOOD SPECIMENOrdering Facility: [facility] Address: [address] [place] [address] Performed By: #### L IPNF, ####[facility] LABCLIA [id number] [place] [id number] [place] Calcium [Mass/Vol] 9.4 mg/dL Normal 8.5-10.2 [facility] Comment on above: Order Comment: Speci men Type: BLOOD SPECIMENOrdering Facility: [facility] Address: [address] [place] [address] Performed By: #### L IPNF, ####[facility] LABCLIA [id number] [place] [address] [place] Chloride [Moles/Vol] 97 mmol/L Low 98-107 [facility] Comment on above: Order Comment: Speci men Type: BLOOD SPECIMENOrdering Facility: [facility] Address: [address] [place] [address] Performed By: #### L IPNF, ####[facility] LABCLIA [id number] [place] [id number] [place] CO2 [Moles/Vol] 27 mmol/L Normal 22-30 [facility] Comment on above: Order Comment: Speci men Type: BLOOD SPECIMENOrdering Facility: [facility] Address: [address] [place] [address] Performed By: #### L IPNF, ####[facility] LABCLIA [id number] [place] [id number] [place] Creatinine [Mass/Vol] 0.67 mg/dL Low 0.73-1.22 [facility] [facility] Comment on above: Order Comment: Alo lemos Type: BLOOD SPECIMENOrdering Facility: [facility] Address: [address] [place] [address] Performed By: #### L IP, 93847-8 ####[facility] LABCLIA [id number] [place] [address] [place] Creatinine and Glomerular filtration rate.predicted panel (S/P/Bld) 127 mL/min/1.73m??? Normal >=60 [facility] Comment on above: Order Comment: Alo lemos Type: BLOOD SPECIMENOrdering Facility: [facility] Address: [address] [place] [address] Result Comment: Anuradha mated Glomerular Filtration Rate [...] reflect actual GFR. Performed By: #### L IP, 98731-4 ####[facility] LABCLIA [id number] [place] [address] [place] Glucose [Mass/Vol] 128 mg/dL High 74-99 [facility] Comment on above: Order Comment: Alo lemos Type: BLOOD SPECIMENOrdering Facility: [facility] Address: [address] [place] [address] Result Comment: The [place] Diabetes Association (ADA) [...] Care. 2016.39(Suppl 1). Performed By: #### L IPNF, 52057-1 ####[facility] LABCLIA [id number] [address] [address] [place] Potassium [Moles/Vol] 4.5 mmol/L Normal 3.7-5.1 [facility] Comment on above: Order Comment: Speci men Type: BLOOD SPECIMENOrdering Facility: [facility] Address: [address] [place] [address] Performed By: #### L IPNF, ####[facility] LABCLIA [id number] [place] [id number] [place] Protein [Mass/Vol] 7.1 g/dL Normal 6.3-8.0 [facility] Comment on above: Order Comment: Speci men Type: BLOOD SPECIMENOrdering Facility: [facility] Address: [address] [place] [address] Performed By: #### L IPNF, ####[facility] LABIA [id number] [place] [id number] [place] Sodium [Moles/Vol] 136 mmol/L Normal 136-144 [facility] Comment on above: Order Comment: Speci men Type: BLOOD SPECIMENOrdering Facility: [facility] Address: [address] [place] [address] Performed By: #### L IPNF, ####[facility] LABCLIA [id number] [address] [address] [place] Urea nitrogen [Mass/Vol] 13 mg/dL Normal 9-24 [facility] Comment on above: Order Comment: Speci men Type: BLOOD SPECIMENOrdering Facility: [facility] Address: [address] [place] [address] Performed By: #### L IPNF, ####[facility] LABCLIA [id number] [address] HbA1c (Bld)on 12-20-2024 Average glucose Estimated from glycated hemoglobin (Bld) [Mass/Vol] 117 mg/dL Normal [facility] Comment on above: Order Comment: Alo lemos Type: BLOOD SPECIMENOrdering Facility: [facility] Address: [address] [place] [address] Result Comment: eAG: (Estimated average glucose) is a calculated value from HgbA1c and is security representative of the average blood glucose level in the last 2-3 month period. Performed By: #### 5 5454-3 ####[facility] LABIA [id number] [address] HbA1c (Bld) [Mass fraction] 5.7 % High 4.3-5.6 [facility] Comment on above: Order Comment: Alo [facility] Type: BLOOD SPECIMENOrdering Facility: [facility] Address: [address] [place] [address] Result Comment: Amer ican Diabetes Association guidelines indicate that patients with HgbA1c in the range 5.7-6.4% are at increased risk for development of diabetes, and intervention by lifestyle modification may be beneficial. HgbA1c greater or equal to 6.5% is considered diagnostic of diabetes. Performed By: #### 5 5454-3 ####[facility] LABIA [id number] [address] [facility] LIPID PANEL, NONFASTINGon Cholesterol [Mass/Vol] 187 mg/dL Normal <200 [facility] Comment on above: Order Comment: Alo lemos Type: BLOOD SPECIMENOrdering Facility: [facility] Address: [address] [place] [address] Result Comment: <200 mg/dL, Desirable 200-239 mg/dL, Borderline high >239 mg/dL, High Performed By: #### L RUBIN, 10424-3 ####[facility] LABCLIA [id number] [address] HDL CHOLESTEROL, NF 29 mg/dL Low >39 [facility] Comment on above: Order Comment: Alo canelo Type: BLOOD SPECIMENOrdering Facility: [facility] Address: [address] [place] [address] Result Comment: 40-5 9 mg/dL, Acceptable >59 mg/dL, High: Negative risk factor for coronary heart disease <40 mg/dL, Low: Positive risk factor for coronary heart disease Performed By: #### L STEPHANIE, 24777-6 ####[facility] LABCLIA [id number] [address] LDL CHOLESTEROL CALCULATED, NF 100 mg/dL High <100 [facility] Comment on above: Order Comment: Alo canelo Type: BLOOD SPECIMENOrdering Facility: [facility] Address: [address] [place] [address] Result Comment: <100 mg/dL, Optimal 100-129 mg/dL, Near optimal/above optimal 130-159 mg/dL, Borderline high 160-189 mg/dL, High >189 mg/dL, Very high Secondary prevention optimal LDL Cholesterol levels are recommended to be <70 mg/dL LDL cholesterol is calculated using the Fraser-NIH equation. Performed By: #### L STEPHANIE, 64453-9 ####[facility] LABCLIA [id number] [address] LDL/HDL RATIO, NF 3.45 mg/dL High <2.54 [facility] Comment on above: Order Comment: Alo canelo Type: BLOOD SPECIMENOrdering Facility: [facility] Address: [address] [place] [address] Result Comment: Jh lobo: 1. National Cholesterol Education Program ATP III Guideline At-A-Glance Quick Desk Reference: National Heart, Lung, and Blood Hartman. National Institutes of Health. 2001: NIH Publication No. 01-3305. 2. An International Atherosclerosis Society position paper: global recommendations for the management of dyslipidemia: executive summary, Atherosclerosis. 2014: 232(2):410-413. Performed By: #### L IPNF, ####[facility] LABCLIA [id number] [place] [address] [place] NON HDL CHOL, NF 158 mg/dL High <130 [facility] Comment on above: Order Comment: Speci men Type: BLOOD SPECIMENOrdering Facility: [facility] Address: [address] [place] [address] Result Comment: <130 mg/dL, Optimal 130-159 mg/dL, Near optimal/above optimal 160-189 mg/dL, Borderline high 190-219 mg/dL, High >219 mg/dL, Very high Secondary prevention optimal non HDL Cholesterol levels are recommended to be <100 mg/dL Performed By: #### L IPBRITTANY, ####[facility] LABCLIA [id number] [place] [address] [place] T CHOL/HDL RATIO NF 6.45 mg/dL High <5.10 [facility] Comment on above: Order Comment: Speci men Type: BLOOD SPECIMENOrdering Facility: [facility] Address: [address] [place] [address] Performed By: #### L IPBRITTANY, ####[facility] LABCLIA [id number] [place] [address] [place] TRIGLYCERIDES, NF 340 mg/dL High <150 [facility] Comment on above: Order Comment: Speci men Type: BLOOD SPECIMENOrdering Facility: [facility] Address: [address] [place] [address] Result Comment: <150 mg/dL, Normal 150-199 mg/dL, Borderline high 200-499 mg/dL, High >499 mg/dL, Very high Performed By: #### L IPNF, ####[facility] LABCLIA [id number] [place] [id number] [place] VLDL CHOLESTEROL, NF 56 mg/dL High <30 [facility] Comment on above: Order Comment: Speci men Type: BLOOD SPECIMENOrdering Facility: [facility] Address: [address] [place] [address] Performed By: #### L IP, 93892-0 ####[facility] LABCLIA [id number] RADHA SILVA [id number] [place] [address] [place] Lumbar Spine 2 or 3 Viewson 11-30-2024 Lumbar Spine 2 or 3 Views [facility] [address] [place] [address] Lumbar Spine 2 or 3 Views MR#: [id number] Acct: [id number] Name: NIKO BROOKE Rep #: [id number] : 1990 M 34 From: Nalini Norris MD PCP: Dr. Hecotr Currie MD Status: REG CLI Study: Lumbar Spine 2 or 3 Views Date of Exam: Exam# [id number] Ordering Dr: Rachid Mary MD PROCEDURE: LUMBAR [...] levocurvature of the lumbar spine. Reading Location: [id number] CC: Dr. Rachid Mary MD; Dr. Hector Currie MD [place]: Signed Normal [facility] CNOVon 10-10-2024 CNOV Office Visit (UCWSTR ) NIKO BROOKE ([id number]) 1990 M GRD Date Time Provider Department 10/10/24 11:15 AM BRANDEE [facility] During your visit today, we recorded the following information about you: Temperature Pulse Respiration Blood pressure 97.3 degrees 104/minute 20/minute 136/78 Weight 162.8 kg Brandee Mcmanus, INDUSTRIAL REGISTERED NURSE.STENOGRAPHER SECRETARY 10/10/2024 11:32 AM Signed Subjective Nasal Congestion [...] adenopathy. Skin: (more content not included)... Normal [facility] INFLUENZA A&B MOLECULAR (POC )on 10-10-2024 Flu A (POCT) Positive Abnormal Negative [facility] Comment on above: Location:[address], [place], [address] Interpretation and review of laboratory results Abnormal [facility] Procedural Control Valid [facility] Location:[address], [place], [place], [address] [place] [address] POINT OF CARE [facility] ALBUMIN/CREATININE RATIO, UR INEon 08-15-2024 Albumin DL <= 20 mg/L (U) [Mass/Vol] 32.3 mg/L Normal [facility] Comment on above: Order Comment: Speci men Type: URINE SPECIMENOrdering Facility: [facility] Address: [address] [place] [address] Performed By: #### U ACR ####[facility] LABCLIA [id number] [place] [address] [place] Albumin/Creatinine (U) [Mass ratio] 23 mg/g Normal <30 [facility] Comment on above: Order Comment: Speci men Type: URINE SPECIMENOrdering Facility: [facility] Address: [address] [place] [address] Result Comment: Adul t Male and Female Nephrotic Criteria: <30 mg/g is considered normal to mildly increased 30-300 mg/g is considered moderately increased >300 mg/g is considered severely increased KDIGO. (2013). KDIGO 2012 Clinical Practice Guideline for the Evaluation and Management of Chronic Kidney Disease. Official Journal of the International Society of Nephrology, 3(1), 1-150. Performed By: #### U ACR ####[facility] LABCLIA [id number] [place] [address] [place] Creatinine (U) [Mass/Vol] 140.6 mg/dL Normal 20.0-300.0 [facility] Comment on above: Order Comment: Speci men Type: URINE SPECIMENOrdering Facility: [facility] Address: [address] [place] [address] Performed By: #### U ACR ####[facility] [id number] [place] [address] [place] CNOVon 08-15-2024 CNOV Office Visit (INTMWS ) NIKO BROOKE ([id number]) 1990 M FNS Date Time Provider Department 08/15/24 8:20 AM HECTOR CURRIE INTMWS During your visit today, we recorded the following information about you: Temperature Pulse Respiration Blood pressure 97.5 degrees 98/minute 16/minute 118/70 Weight 162 kg Hector Currie MD 09/12/2024 6:14 PM Addendum This note was created using [employer]ot[employer]. Subjective Niko Brooke is a 34 year [...] Height as of 02/05/22: 188 cm (6' 2). Weight as of this encounter: 162 kg [...] (more content not included)... Normal [facility] 08-15-2024 CNPN Telephone (INTMWS) NIKO BROOKE ([id number]) 1990 [facility] Date Time Provider Department 08/15/24 HECTOR CURRIE INTMWS During your visit today, we recorded the following information about you: Lianne Caldwell RN 08/15/2024 3:16 PM Signed Patient's mother Lanie, calling and states patient will be using [facility] now and requesting all of pt's medication be transferred there. Pended. No call back needed if agreeable to send. TYLER aGlaviz Stephanie, RN 08/18/2024 10:06 AM Signed Patient's [...] subcutaneously one time a week. Authorizing Provider: TALAMPAS, HECTOR D triamcinolone (KENALOG) 0.025 % cream 30 g [...] Sprain of (more content not included)... Normal [facility] CBC panel Auto (Bld)on 07-30 Erythrocyte distribution width (RBC) [Ratio] 12.0 % Normal 11.5-15.0 [facility] Comment on above: Order Comment: Speci men Type: BLOOD SPECIMENOrdering Facility: [facility] Address: [address] [place] [address] Performed By: #### 5 8410-2 ####[facility] LABCLIA [id number] [place] [address] [place] Hematocrit (Bld) [Volume fraction] 44.2 % Normal 39.0-51.0 [facility] Comment on above: Order Comment: Speci men Type: BLOOD SPECIMENOrdering Facility: [facility] Address: [address] [place] [address] Performed By: #### 5 8410-2 ####[facility] LABIA [id number] [place] [address] [place] Hemoglobin (Bld) [Mass/Vol] 14.6 g/dL Normal 13.0-17.0 [facility] Comment on above: Order Comment: Speci men Type: BLOOD SPECIMENOrdering Facility: [facility] Address: [address] [place] [address] Performed By: #### 5 8410-2 ####[facility] LABIA [id number] [place] [address] [place] MCH (RBC) [Entitic mass] 29.2 pg Normal 26.0-34.0 [facility] Comment on above: Order Comment: Speci men Type: BLOOD SPECIMENOrdering Facility: [facility] Address: [address] [place] [address] Performed By: #### 5 8410-2 ####[facility] LABIA [id number] [place] [address] [place] MCHC (RBC) [Mass/Vol] 33.0 g/dL Normal 30.5-36.0 [facility] Comment on above: Order Comment: Speci men Type: BLOOD SPECIMENOrdering Facility: [facility] Address: [address] [place] [address] Performed By: #### 5 8410-2 ####[facility] LABIA [id number] [place] [id number] [place] MCV (RBC) [Entitic vol] 88.4 fL Normal 80.0-100.0 [facility] Comment on above: Order Comment: Speci men Type: BLOOD SPECIMENOrdering Facility: [facility] Address: [address] [place] [address] Performed By: #### 5 8410-2 ####[facility] LABCLIA [id number] [place] [address] [place] Nucleated RBC (Bld) [#/Vol] 10*3/uL Normal <0.01 [facility] Comment on above: Order Comment: Speci men Type: BLOOD SPECIMENOrdering Facility: [facility] Address: [address] [place] [address] Performed By: #### 5 8410-2 ####[facility] LABCLIA [id number] [place] [address] [place] Platelet mean volume (Bld) [Entitic vol] 11.2 fL Normal 9.0-12.7 [facility] Comment on above: Order Comment: Speci men Type: BLOOD SPECIMENOrdering Facility: [facility] Address: [address] [place] [address] Performed By: #### 5 8410-2 ####[facility] LABIA [id number] [place] [address] [place] Platelets (Bld) [#/Vol] 198 10*3/uL Normal 150-400 [facility] Comment on above: Order Comment: Speci men Type: BLOOD SPECIMENOrdering Facility: [facility] Address: [address] [place] [address] Performed By: #### 5 8410-2 ####[facility] LABCLIA [id number] [place] [address] [place] RBC (Bld) [#/Vol] 5.00 10*6/uL Normal 4.20-6.00 [facility] Comment on above: Order Comment: Speci men Type: BLOOD SPECIMENOrdering Facility: [facility] Address: [address] [place] [id number] Performed By: #### 5 8410-2 ####[facility] LABCLIA [id number] [address] [address] [place] WBC (Bld) [#/Vol] 8.29 10*3/uL Normal 3.70-11.00 [facility] Comment on above: Order Comment: Speci men Type: BLOOD SPECIMENOrdering Facility: [facility] Address: [address] [place], [place] [address] Performed By: #### 5 8410-2 ####[facility] LABCLIA [id number] [place] [address] [place] [facility] Comprehensive metabolic 2000 panelon 07-30-2024 Albumin [Mass/Vol] 4.3 g/dL Normal 3.9-4.9 [facility] Comment on above: Order Comment: Speci men Type: BLOOD SPECIMENOrdering Facility: [facility] Address: [address] [place] [address] Performed By: #### 2 4331-1, 54616-9 ####[facility] LABCLIA [id number] [place] [address] [place] ALP [Catalytic activity/Vol] 53 U/L Normal 38-113 [facility] Comment on above: Order Comment: Speci men Type: BLOOD SPECIMENOrdering Facility: [facility] Address: [address] [place], [place] [address] Performed By: #### 2 4331-1, 63209-7 ####[facility] LABCLIA [id number] [place] [address] [place] ALT [Catalytic activity/Vol] 17 U/L Normal 10-54 [facility] Comment on above: Order Comment: Speci men Type: BLOOD SPECIMENOrdering Facility: [facility] Address: [address] [place] [address] Performed By: #### 2 4331-1, 44888-9 ####[facility] LABCLIA [id number] [facility] [address] [address] [place] Anion gap [Moles/Vol] 13 mmol/L Normal 8-15 [facility] Comment on above: Order Comment: Speci men Type: BLOOD SPECIMENOrdering Facility: [facility] Address: [address] [place] [address] Performed By: #### 2 4331-1, 70915-9 ####[facility] LABCLIA [id number] [facility] [place] [address] [place] AST [Catalytic activity/Vol] 21 U/L Normal 14-40 [facility] Comment on above: Order Comment: Speci men Type: BLOOD SPECIMENOrdering Facility: [facility] Address: [address] [place] [address] Performed By: #### 2 4331-, 92261-3 ####[facility] LABCLIA [id number] [facility] [address] [place] Bilirubin [Mass/Vol] 0.4 mg/dL Normal 0.2-1.3 [facility] Comment on above: Order Comment: Speci men Type: BLOOD SPECIMENOrdering Facility: [facility] Address: [address] [place], [place] [address] Performed By: #### 2 4331-, 47660-5 ####[facility] LABCLIA [id number] [facility] [place] [id number] [place] Calcium [Mass/Vol] 9.3 mg/dL Normal 8.5-10.2 [facility] Comment on above: Order Comment: Speci men Type: BLOOD SPECIMENOrdering Facility: [facility] Address: [address] [place], [place] [address] Performed By: #### 2 4331-1, 47806-6 ####[facility] LABCLIA [id number] [place] [address] [place] Chloride [Moles/Vol] 99 mmol/L Normal 98-107 [facility] Comment on above: Order Comment: Speci men Type: BLOOD SPECIMENOrdering Facility: [facility] Address: [address] [place] [address] Performed By: #### 2 4331-1, 77814-8 ####[facility] LABIA [id number] [place] [address] [place] CO2 [Moles/Vol] 27 mmol/L Normal 22-30 [facility] Comment on above: Order Comment: Speci men Type: BLOOD SPECIMENOrdering Facility: [facility] Address: [address] [place] [address] Performed By: #### 2 4331-1, 72319-9 ####[facility] LABIA [id number] [place] [address] [place] Creatinine [Mass/Vol] 0.59 mg/dL Low 0.73-1.22 [facility] Comment on above: Order Comment: Speci men Type: BLOOD SPECIMENOrdering Facility: [facility] Address: [address] [place] [address] Performed By: #### 2 4331-1, 60699-7 ####[facility] LABIA [id number] [address] [place] Creatinine and Glomerular filtration rate.predicted panel (S/P/Bld) 132 mL/min/1.73m??? Normal >=60 [facility] Comment on above: Order Comment: Speci men Type: BLOOD SPECIMENOrdering Facility: [facility] Address: [address] [place] [address] Result Comment: Anuradha mated Glomerular Filtration Rate [...] reflect actual GFR. Performed By: #### 2 4331-1, 70586-8 ####[facility] LABCLIA [id number] [place] [address] [place] Glucose [Mass/Vol] 94 mg/dL Normal 74-99 [facility] Comment on above: Order Comment: Specjoanne men Type: BLOOD SPECIMENOrdering Facility: [facility] Address: [address] [place] [address] Result Comment: The [place] Diabetes Association (ADA) [...] Care. 2016.39(Suppl 1). Performed By: #### 2 4331-1, 28780-4 ####[facility] LABIA [id number] [place] [address] [place] Potassium [Moles/Vol] 5.0 mmol/L Normal 3.7-5.1 [facility] Comment on above: Order Comment: Alo men Type: BLOOD SPECIMENOrdering Facility: [facility] Address: [address] [place] [address] Performed By: #### 2 4331-1, 53385-9 ####[facility] LABIA [id number] [place] [address] [place] Protein [Mass/Vol] 6.6 g/dL Normal 6.3-8.0 [facility] Comment on above: Order Comment: Giannai men Type: BLOOD SPECIMENOrdering Facility: [facility] Address: [address] [place] [address] Performed By: #### 2 4331-1, 12409-6 ####[facility] LABCLIA [id number] [place] [address] [place] Sodium [Moles/Vol] 139 mmol/L Normal 136-144 [facility] Comment on above: Order Comment: Speci men Type: BLOOD SPECIMENOrdering Facility: [facility] Address: [address] [place] [address] Performed By: #### 2 4331-1, 20847-4 ####[facility] LABCLIA [id number] [place] [address] [place] Urea nitrogen [Mass/Vol] 9 mg/dL Normal 9-24 [facility] Comment on above: Order Comment: Speci men Type: BLOOD SPECIMENOrdering Facility: [facility] Address: [address] [place] [address] Performed By: #### 2 4331-1, 59335-6 ####[facility] LABIA [id number] [place] [address] [place] HbA1c (Bld)on 07-30-2024 Average glucose Estimated from glycated hemoglobin (Bld) [Mass/Vol] 105 mg/dL Normal [facility] Comment on above: Order Comment: Speci men Type: BLOOD SPECIMENOrdering Facility: [facility] Address: [address] [place] [address] Result Comment: eAG: (Estimated average glucose) is a calculated value from HgbA1c and is security representative of the average blood glucose level in the last 2-3 month period. Performed By: #### 5 5454-3 ####[facility] LABIA [id number] [place] [address] [place] HbA1c (Bld) [Mass fraction] 5.3 % Normal 4.3-5.6 [facility] Comment on above: Order Comment: Speci men Type: BLOOD SPECIMENOrdering Facility: [facility] Address: [address] [place] [address] Result Comment: Amer ican Diabetes Association guidelines indicate that patients with HgbA1c in the range 5.7-6.4% are at increased risk for development of diabetes, and intervention by lifestyle modification may be beneficial. HgbA1c greater or equal to 6.5% is considered diagnostic of diabetes. Performed By: #### 5 5454-3 ####[facility] LABCLIA [id number] [place] [address] [place] Lipid 1996 panelon 4 Cholesterol [Mass/Vol] 178 mg/dL Normal <200 [facility] Comment on above: Order Comment: Speci men Type: BLOOD SPECIMENOrdering Facility: [facility] Address: [address] [place] [address] Result Comment: <200 mg/dL, Desirable 200-239 mg/dL, Borderline high >239 mg/dL, High Performed By: #### 2 4331-1, 90591-2 ####[facility] LABCLIA [id number] [place] [address] [place] Cholesterol in HDL [Mass/Vol] 29 mg/dL Low >39 [facility] Comment on above: Order Comment: Speci men Type: BLOOD SPECIMENOrdering Facility: [facility] Address: [address] [place] [address] Result Comment: 40-5 9 mg/dL, Acceptable >59 mg/dL, High: Negative risk factor for coronary heart disease <40 mg/dL, Low: Positive risk factor for coronary heart disease Performed By: #### 2 4331-1, 85711-7 ####[facility] LABCLIA [id number] [place] [address] [place] Cholesterol in LDL [Mass/Vol] 111 mg/dL High <100 [facility] Comment on above: Order Comment: Speci men Type: BLOOD SPECIMENOrdering Facility: [facility] Address: [address] [place] [address] Result Comment: <100 mg/dL, Optimal 100-129 mg/dL, Near optimal/above optimal 130-159 mg/dL, Borderline high 160-189 mg/dL, High >189 mg/dL, Very high Secondary prevention optimal LDL Cholesterol levels are recommended to be < 70 mg/dL Performed By: #### 2 4331-1, 65024-8 ####[facility] LABCLIA [id number] [place] [address] [place] Cholesterol in LDL/Cholesterol in HDL [Mass ratio] 3.83 {ratio} High <2.54 [facility] Comment on above: Order Comment: Speci men Type: BLOOD SPECIMENOrdering Facility: [facility] Address: [address] [place] [address] Result Comment: Refe doreence: 1. National Cholesterol Education Program ATP III Guideline At-A-Glance Quick Desk Reference: National Heart, Lung, and Blood Hartman. National Institutes of Health. 2001: NIH Publication No. 01-3305. 2. An International Atherosclerosis Society position paper: global recommendations for the management of dyslipidemia: executive summary, Atherosclerosis. 2014: 232(2):410-413. Performed By: #### 2 4331-1, ####[facility] LABIA [id number] [place] [address] [place] Cholesterol in VLDL [Mass/Vol] 38 mg/dL High <30 [facility] Comment on above: Order Comment: Alo lemos Type: BLOOD SPECIMENOrdering Facility: [facility] Address: [address] [place] [address] Performed By: #### 2 4331-1, ####[facility] LABIA [id number] [place] [address] [place] Cholesterol non HDL [Mass/Vol] 149 mg/dL High <130 [facility] Comment on above: Order Comment: Alo lemos Type: BLOOD SPECIMENOrdering Facility: [facility] Address: [address] [place] [address] Result Comment: <130 mg/dL, Optimal 130-159 mg/dL, Near optimal/above optimal 160-189 mg/dL, Borderline high 190-219 mg/dL, High >219 mg/dL, Very high Secondary prevention optimal non HDL Cholesterol levels are recommended to be <100 mg/dL Performed By: #### 2 4331-1, ####[facility] LABCLIA [id number] [place] [address] [place] Cholesterol.total/ Cholesterol in HDL [Mass ratio] 6.14 {ratio} High <5.10 [facility] Comment on above: Order Comment: Speci men Type: BLOOD SPECIMENOrdering Facility: [facility] Address: [address] [place] [address] Performed By: #### 2 4331-1, ####[facility] LABCLIA [id number] [address] STATES OF [facility] FASTING TIME [address] [facility] Comment on above: Order Comment: Speci men Type: BLOOD SPECIMENOrdering Facility: [facility] Address: [address] [place] [address] Performed By: #### 2 4331-1, ####[facility] LABCLIA [id number] [address] [place] Triglyceride [Mass/Vol] 188 mg/dL High <150 [facility] Comment on above: Order Comment: Speci men Type: BLOOD SPECIMENOrdering Facility: [facility] Address: [address] [place] [address] Result Comment: <150 mg/dL, Normal 150-199 mg/dL, Borderline high 200-499 mg/dL, High >499 mg/dL, Very high Performed By: #### 2 4331-1, ####[facility] LABCLIA [id number] [place] [address] [place] Jeff 07-04-2024 CNPN Telephone (INTMWS) NIKO BROOKE ([id number]) 1990 M FNS Date Time Provider Department 07/04/24 LIUDMILA BREAUXWS During your visit today, we recorded the following information about you: Pauline Hein LPN 07/04/2024 1:47 PM Signed Patient had sleep study completed 06/29/24. Results on Liudmila's desk for review. Fax order for CPAP to [facility]. Liudmila Breaux APRN.STENOGRAPHER SECRETARY 07/04/2024 1:51 PM Signed New orders placed, please send updated orders and updated sleep study results. Thanks. Pauline Hein LPN 07/04/2024 2:08 PM Signed Orders faxed and mother Lanie, aware of same. Allergies As of Date: 07/04/2024 Noted Allergy Reaction SEASONAL ALLERGIES 07/06/2019 16 - Unknown Date Reviewed: 06/14/2024 Reviewed by: Liudmila Breaux APRN.STENOGRAPHER SECRETARY - Fully Assessed Reason for Visit: Results - Sleep Study [3564] Primary Visit Diagnosis:DWIGHT (obstructive sleep apnea) [G47.33] Order(s):PAP THERAPY ORDER [[id number]] Order #: [id number]: 1 CPAP/BIPAP/OTHERType .CPAPSettings into a note to [...] information. Encounter Status:Closed by PAULINE HEIN on 07/04/[address] [facility] STREP A MOLECULAR (POC)on Procedural Control Valid [facility] Strep A (POCT) Negative Negative [facility] COVID & INFLUENZA A/B & RSV NAAT, ROUTINEon 11-06-2023 FLUAV RNA EVELIN+probe Ql (Unsp spec) Not detected Not Detected [facility] FLUBV RNA EVELIN+probe Ql (Unsp spec) Not detected Not Detected [facility] RSV A RNA EVELIN+probe Ql (Unsp spec) Detected Abnormal Not Detected [facility] SARS-CoV-2 (COVID-19) RNA EVELIN+probe Ql (Resp) Not detected See comment [facility] XR Chest PA and Lateralon IMPRESSION: Prominence of the pulmonary markings in the left lower lung. Porter Marina: PSCZach Transcribe Date/Time: Nov 06 2023 10:41A Dictated by : ASHWIN SAMANIEGO MD This examination was interpreted and the report reviewed and electronically signed by: ASHWIN SAMANIEGO MD on Nov 06 2023 10:42AM [facility] DIVISION OF RADIOLOGY * * [...] soft tissues: Unremarkable. DIVISION OF RADIOLOGY Provider, [facility] - 11/06/2023 * * *Final Report* * [...] pulmonary markings in the left lower lung. Porter Marina: SHANNAN Transcribe Date/Time: Nov 06 2023 10:41A Dictated by : ASHWIN SAMANIEGO MD This examination was interpreted and the report reviewed and electronically signed by: ASHWIN SAMANIEGO MD on Nov 06 2023 10:42AM EST [facility] Radiology Study observation (narrative) [facility] XR Chest PA and LateralOrder ed By: Ccf Provider on 11-06-2023 [facility] No Panel Informationon 02-13 Radiology Study observation (narrative) [facility] XR Ankle - left AP and Later al and obliqueon 02-13-2023 IMPRESSION: No acute radiographic abnormalities seen in the left ankle. Porter Marina: SHANNAN Transcribe Date/Time: Feb 13 2023 5:07P Dictated by : ASHWIN SAMANIEGO MD This examination was interpreted and the report reviewed and electronically signed by: ASHWIN SAMANIEGO MD on Feb 13 2023 5:08PM [facility] DIVISION OF RADIOLOGY * * [...] soft tissue swelling. DIVISION OF RADIOLOGY Provider, [facility] - 02/13/2023 * * *Final Report* [...] radiographic abnormalities seen in the left ankle. Porter Marina: SHANNAN Transcribe Date/Time: Feb 13 2023 5:07P Dictated by : ASHWIN SAMANIEGO MD This examination was interpreted and the report reviewed and electronically signed by: ASHWIN SAMANIEGO MD on Feb 13 2023 5:08PM [facility] XR Foot - left AP and Latera l and obliqueon 02-13-2023 IMPRESSION: Pes planus. Porter Marina: SHANNAN Transcribe Date/Time: Feb 13 2023 5:22P Dictated by : ASHWIN SAMANIEGO MD This examination was interpreted and the report reviewed and electronically signed by: ASHWIN SMAANIEGO MD on Feb 13 2023 5:23PM [facility] DIVISION OF RADIOLOGY * * [...] soft tissue swelling. DIVISION OF RADIOLOGY Provider, [facility] - 02/13/2023 * * *Final Report* [...] soft tissue swelling. IMPRESSION IMPRESSION: Pes planus. Porter Marina: SHANNAN Transcribe Date/Time: Feb 13 2023 5:22P Dictated by : ASHWIN SAMANIEGO MD This examination was interpreted and the report reviewed and electronically signed by: ASHWIN SAMANIEGO MD on Feb 13 2023 5:23PM EST [facility] XR Foot - left AP and Latera l and obliqueOrdered By: Ccf Provider on 02-13-2023 [facility] XR FOOT GENERAL 3V AP/LAT/OB L LEFTon 12-17-2022 [facility] XR Foot - left AP and Latera l and obliqueon 12-17-2022 IMPRESSION: 1 x 3 mm radiopaque foreign body along the lateral aspect of the foot. This could be within the peripheral margin of the subcutaneous fat, dermis or on the skin. Porter Marina: PSCB Transcribe Date/Time: Dec 17 2022 5:43P Dictated by : ZECHARIAH MAGAÑA MD This examination was interpreted and the report reviewed and electronically signed by: ZECHARIAH MAGAÑA MD on Dec 17 2022 5:48PM EST DIVISION OF RADIOLOGY * * *Final [...] dislocation is evident. [facility] * * *Final Report* [...] subcutaneous fat, dermis or on the skin. Porter Marina: PSCB Transcribe Date/Time: Dec 17 2022 5:43P Dictated by : ZECHARIAH MAGAÑA MD This examination was interpreted and the report reviewed and electronically signed by: ZECHARIAH MAGAÑA MD on Dec 17 2022 5:48PM EST [facility] Radiology Study observation (narrative) [facility] XR Foot - left AP and Latera l and obliqueOrdered By: Ccf Provider on 12-17-2022 [facility] Comprehensive metabolic 2000 panelon 11-08-2022 Albumin [Mass/Vol] 4.3 g/dL 3.9 - 4.9 g/dL [facility] ALP [Catalytic activity/Vol] 64 U/L 38 - 113 U/L [facility] ALT [Catalytic activity/Vol] 47 U/L 10 - 54 U/L [facility] Anion gap [Moles/Vol] 10 mmol/L 9 - 18 mmol/L [facility] AST [Catalytic activity/Vol] 38 U/L 14 - 40 U/L [facility] Bilirubin [Mass/Vol] 0.3 mg/dL 0.2 - 1.3 mg/dL [facility] Calcium [Mass/Vol] 9.2 mg/dL 8.5 - 10. 2 mg/dL [facility] Chloride [Moles/Vol] 102 mmol/L 97 - 105 mmol/L [facility] CO2 [Moles/Vol] 27 mmol/L 22 - 30 mmol/L [facility] Creatinine [Mass/Vol] 0.59 mg/dL Low 0.73 - 1.22 mg/dL [facility] Estimated Glomerular Filtration Rate 134 mL/min/1.73m >=60 mL/min/1.73m [facility] Glucose [Mass/Vol] 113 mg/dL High 74 - 99 mg/dL [facility] Potassium [Moles/Vol] 4.7 mmol/L 3.7 - 5.1 mmol/L [facility] Protein [Mass/Vol] 6.8 g/dL 6.3 - 8.0 g/dL [facility] Sodium [Moles/Vol] 139 mmol/L 136 - 144 mmol/L [facility] Urea nitrogen [Mass/Vol] 10 mg/dL 9 - 24 mg/dL [facility] HbA1c (Bld)on 11-08-2022 Average glucose Estimated from glycated hemoglobin (Bld) [Mass/Vol] 126 mg/dL [facility] HbA1c (Bld) [Mass fraction] 6.0 % High 4.3 - 5.6 % [facility] Lipid 1996 panelon Cholesterol [Mass/Vol] 193 mg/dL <200 mg/dL [facility] Cholesterol in HDL [Mass/Vol] 26 mg/dL Low >39 mg/dL [facility] Cholesterol in LDL [Mass/Vol] 133 mg/dL High <100 mg/dL [facility] Cholesterol in LDL/Cholesterol in HDL [Mass ratio] 5.12 {ratio} High <2.54 [facility] Cholesterol in VLDL [Mass/Vol] 34 mg/dL High <30 mg/dL [facility] Cholesterol non HDL [Mass/Vol] 167 mg/dL High <130 mg/dL [facility] Cholesterol.total/ Cholesterol in HDL [Mass ratio] 7.42 {ratio} High <5.10 [facility] Fasting Time 11 hrs [facility] Triglyceride [Mass/Vol] 168 mg/dL High <150 mg/dL [facility] XR FOOT GENERAL 3V AP/LAT/OB L RIGHTon 05-01-2022 [facility] XR Foot - right AP and Later al and obliqueon 05-01-2022 IMPRESSION: No acute radiographic abnormalities seen in the right foot. Porter Marina: PSCB Transcribe Date/Time: May 01 2022 5:00P Dictated by : ASHWIN SAMANIEGO MD This examination was interpreted and the report reviewed and electronically signed by: ASHWIN SAMANIEGO MD on May 01 2022 5:01PM [facility] DIVISION OF RADIOLOGY * * [...] soft tissue swelling. [facility] * * *Final Report* * [...] radiographic abnormalities seen in the right foot. Porter Marina: SHANNAN Transcribe Date/Time: May 01 2022 5:00P Dictated by : ASHWIN SAMANIEGO MD This examination was interpreted and the report reviewed and electronically signed by: ASHWIN SAMANIEGO MD on May 01 2022 5:01PM EST [facility] Radiology Study observation (narrative) [facility] XR Foot - right AP and Later al and obliqueOrdered By: Ccf Provider on 05-01-2022 [facility] No Panel Informationon 04-23 D-Dimer Quantitative (PE/DVT) 0.31 FEU/ug/m 0.27-0.49 [facility] Work Phone: Comment on above: NORMAL D-Dimer level (<0.50) indicates no DVT or PE. XR Chest PA and Lateralon IMPRESSION: No acute radiographic abnormality. Porter Marina: SHANNAN Transcribe Date/Time: Apr 23 2022 9:59A [...] soft tissues: Unremarkable. DIVISION OF RADIOLOGY Provider, [facility] - 04/23/2022 * * *Final Report* [...] Unremarkable. IMPRESSION IMPRESSION: No acute radiographic abnormality. Porter Marina: PSCB Transcribe Date/Time: Apr 23 2022 9:59A Dictated by : ASHWIN SAMANIEGO MD This examination was interpreted and the report reviewed and electronically signed by: ASHWIN SAMANIEGO MD on Apr 23 2022 9:59AM EST [facility] Radiology Study observation (narrative) [facility] XR Chest PA and LateralOrder ed By: Ccf Provider on 04-23-2022 [facility] ANES POSTPROC EVALon 022 ANES POSTPROC EVAL HNO ID: [id number] Author: Eber Crawley MD Service: Anesthesiology Author Type: Anesthesiologist Type: Anesthesia Postprocedure Evaluation Filed: 03/05/2022 1:26 PM Note Text: POST ANESTHESIA EVALUATION NOTE : 1990 Procedure Summary Date: 03/05/22 Room / Location: [facility] Anesthesia Start: 843 Anesthesia Stop: 922 Procedures: COLONOSCOPY SCREENING EGD DIAGNOSTIC Diagnosis: Family history of colon cancer Colon cancer screening Family history of colon cancer in father Dysphagia, unspecified type (Dysphagia) (FH of Colon Cancer - 1st degree relative < 60 yrs) Scheduled Providers: Jaret King MD; Carmelita Montana APRN.IT APPLICATIONS DEVELOPER Responsible Provider: Mariela Ruelas MD Anesthesia Type: [...] March 05, 2022 TIME: 1:26 PM CSN: [id number] Normal [facility] ANES PRE-OPon 03-05-2022 ANES PRE-OP HNO ID: [id number] Author: Mariela Ruelas MD Service: Anesthesiology Author Type: Anesthesiologist Type: Anesthesia Preprocedure Evaluation Filed: 03/05/2022 8:01 AM Note Text: ANESTHESIOLOGY DAY OF SURGERY NOTE : 1990 Procedure Information Date/Time: 03/05/22 0900 Scheduled providers: Jaret King MD; Carmelita Montana APRN.IT APPLICATIONS DEVELOPER Procedures: COLONOSCOPY SCREENING EGD DIAGNOSTIC Location: [facility] Estimated body mass index is 49.3 kg/m? as calculated from the following: Height as of 02/05/22: 188 cm (6' 2). Weight as of 02/05/22: 174.2 kg (384 [...] March 05, 2022 TIME: 8:01 AM CSN: [id number] Normal [facility] COLONOSCOPY SCREENINGon 02-21 [facility] Colonoscopyon 03-05-2022 Colonoscopy [facility] Patient Name: Niko Brooke Procedure Date: 03/05/2022 8:27 AM Date of : 1990 Admit Type: Outpatient Age: 31 Room: [facility] Gender: Male Note Status: Finalized Attending [...] prior dose. Procedure Code(s): --- Professional --- 43071, Colonoscopy, flexible; with biopsy, single or multiple Diagnosis Code(s): --- Professional --- K63.5, Polyp of colon K64.8, Other hemorrhoids Z80.0, Family history of malignant neoplasm of digestive organs CPT copyright 2019 [employer]. All rights reserved. The codes documented in this report are preliminary and upon orthopedic coder review may be revised to meet current compliance requirements. Attending Participation: I personally performed the entire procedure. Scope In: 8:58:08 AM Scope Out: 9:14:04 AM MD Jaret Orta MD 03/05/2022 9:22:25 AM This report has been signed electronically by Jaret King MD Number of Addenda: 0 Note Initiated On: 03/05/2022 8:27 AM Estimated Blood Loss: Estimated blood loss was minimal. Normal [facility] EGD DIAGNOSTICon 03-05-2022 [facility] HISTORY PHYSICALon HISTORY PHYSICAL HNO ID: [id number] Author: Jaret King MD Service: General Surgery [...] for internal providers or letter via the [employer] for external providers. ? Niko [...] - LAMINECTOMY,LUMBAR ? 09/2019 ? L3,4,5 Dr. Ehrler - TONSILLECTOMY AND ADENOIDECTOMY ? Allergies: ALLERGIES [...] - Diabetes F (more content not included)... [facility] SURGICAL PATH[facility]on 022 [facility]: Order Comment: Alo lemos Type: TISSUE SPECIMEN [facility] Address: [address] [place], [place] [address] Result Comment: Surg [facility] Pathology Report Case: [id number] Authorizing Provider: Jaret King MD Collected: 03/05/2022 08:51 AM Ordering Location: [facility] Received: 03/05/2022 01:09 PM Pathologist: Darvin Marin MD Specimens: A) - DUODENUM BIOPSY, R/O Celiac Sprue B) - STOMACH BIOPSY, R/O H. Pylori C) - FUNDUS (STOMACH) BIOPSY, Fundic Gland Bx D) - ESOPHAGUS LOWER BIOPSY, Distal Esophagus Bx; R/O Bean's E) - ASCENDING COLON BIOPSY Performed By: #### S #### [facility] CLIA [id number] [address] [place] [address] [address]AG[address] Normal [facility] Comment on above: Order Comment: Alo lemos Type: TISSUE SPECIMEN [facility] Address: [address] [place], [place] [address] Result Comment: A. D uodenum, biopsy: - [...] Tubular adenoma. Performed By: #### S #### [facility] CLIA [id number] [address] [place] [address] FINAL PERFORMING LAB Normal [facility] Comment on above: Order Comment: Alo lemos Type: TISSUE SPECIMEN [facility] Address: [address] [place], [place] [address] Result Comment: Diag nostic interpretation performed at [facility], [address] [place] [address] CLIA# [id number] Manager Care: Jose Barros M.D. Performed By: #### S #### [facility] IA [id number] [address] [place] [address] [place] GROSS DESCRIPTION Normal [facility] Comment on above: Order Comment: Speci men Type: TISSUE SPECIMEN [facility] Facility[facility] Address: [address] [place] [address] Result Comment: A. D UODENUM BIOPSY. Received [...] 0.2 cm. Totally submitted in one cassette. [facility] [place] March 05, 2022 5:11 PM Gross examination performed at [facility], [address] [place] [address] Performed By: #### S #### [facility] IA [id number] [address] [place] [address] [place] Upper GI endoscopy 07-13-2 022 Upper GI endoscopy [facility] Patient Name: Niko Brooke Procedure Date: 03/05/2022 8:28 AM Date of : 1990 Admit Type: Outpatient Age: 31 Room: [facility] Gender: Male Note Status: Finalized Attending [...] 1 week. Procedure Code(s): --- Professional --- 24826, Esophagogastroduodeno scopy, flexible, transoral; with biopsy, single or multiple Diagnosis Code(s): --- Professional --- K31.7, Polyp of stomach and duodenum K29.70, Gastritis, unspecified, without bleeding R13.10, Dysphagia, unspecified CPT copyright 2019 [employer]. All rights reserved. The codes documented in this report are preliminary and upon orthopedic coder review may be revised to meet current compliance requirements. Attending Participation: I personally performed the entire procedure. Scope In: 8:48:18 AM Scope Out: 8:53:45 AM MD Jaret Orta MD 03/05/2022 9:18:33 AM This report has been signed electronically by Jaret King MD Number of Addenda: 0 Note Initiated On: 03/05/2022 8:28 AM Estimated Blood Loss: Estimated blood loss was minimal. Normal [facility] Valproic Acidon 09-10-2021 Valproic Acid Normal 50-100 [facility] Lab Comment on above: Result Comment: Unab le to assay. No specimen received. [id number], [id number] Account Credited Michael 03-20-2021 ALT [Catalytic activity/Vol] 46 U/L Normal 10-54 [facility] Comment on above: Performed By: #### V PA, ALT, NH3, HBA1C, PROL, AST, PLTCT, LIPB #### [facility] Routine Lab [address] [place] [id number] Niru 03-20-2021 AST [Catalytic activity/Vol] 47 U/L High 14-40 [facility] Comment on above: Performed By: #### V PA, ALT, NH3, HBA1C, PROL, AST, PLTCT, LIPB #### [facility] Routine Lab [address] [place], [place] [address] Ammoniaon 03-20-2021 Ammonia (P) [Moles/Vol] 43 umol/L Normal 16-60 [facility] Lab Comment on above: Performed By: #### V PA, ALT, NH3, HBA1C, PROL, AST, PLTCT, LIPB #### [facility] Routine Lab [address] [place] [address] Hemoglobin A1con 03-20-2021 Glucose [Mass/Vol] 134 mg/dL Normal [facility] Reference Lab Comment on above: Performed By: #### V PA, ALT, NH3, HBA1C, PROL, AST, PLTCT, LIPB #### [facility] Routine Lab [facility] [place] [address] HbA1c (Bld) [Mass fraction] 6.3 % High 4.3-5.6 [facility] Lab Comment on above: Performed By: #### V PA, ALT, NH3, HBA1C, PROL, AST, PLTCT, LIPB #### [facility] Routine Lab [address] [place] [address] Lipid Panel, [place] 021 Cholesterol [Mass/Vol] 204 mg/dL High <200 [facility] Lab Comment on above: Performed By: #### V PA, ALT, NH3, HBA1C, PROL, AST, PLTCT, LIPB #### [facility] Routine Lab [address] [place] [address] Cholesterol in HDL [Mass/Vol] 31 mg/dL Low >39 [facility] Lab Comment on above: Performed By: #### V PA, ALT, NH3, HBA1C, PROL, AST, PLTCT, LIPB #### [facility] Routine Lab [address] [place] [address] Cholesterol in LDL [Mass/Vol] 143 mg/dL High <100 [facility] Reference Lab Comment on above: Performed By: #### V PA, ALT, NH3, HBA1C, PROL, AST, PLTCT, LIPB #### [facility] Routine Lab [address] [place] [address] Cholesterol in VLDL [Mass/Vol] 30 mg/dL High <30 [facility] Lab Comment on above: Performed By: #### V PA, ALT, NH3, HBA1C, PROL, AST, PLTCT, LIPB #### [facility] Routine Lab [address] [place] [address] Cholesterol non HDL [Mass/Vol] 173 mg/dL High <130 [facility] Lab Comment on above: Performed By: #### V PA, ALT, NH3, HBA1C, PROL, AST, PLTCT, LIPB #### [facility] Routine Lab [address] [place] [address] LDL:HDL Ratio 4.61 High <2.54 [facility] Comment on above: Performed By: #### V PA, ALT, NH3, HBA1C, PROL, AST, PLTCT, LIPB #### [facility] Routine Lab [address] [place] [address] TC:HDL Ratio 6.58 High <5.10 [facility] Comment on above: Performed By: #### V PA, ALT, NH3, HBA1C, PROL, AST, PLTCT, LIPB #### [facility] Routine Lab [address] [place] [address] Triglyceride [Mass/Vol] 151 mg/dL High <150 [facility] Comment on above: Performed By: #### V PA, ALT, NH3, HBA1C, PROL, AST, PLTCT, LIPB #### [facility] Routine Lab [address] [place] [address] Platelet Counton 03-20-2021 Platelets (Bld) [#/Vol] 229 10*3/uL Normal 150-400 [facility] Comment on above: Performed By: #### V PA, ALT, NH3, HBA1C, PROL, AST, PLTCT, LIPB #### [facility] Routine Lab [address] [place] [address] Prolactinon 03-20-2021 Prolactin 32.7 ng/mL High 4.0-15.2 [facility] Comment on above: Performed By: #### V PA, ALT, NH3, HBA1C, PROL, AST, PLTCT, LIPB #### [facility] Routine Lab [address] [address] Valproic Acidon 03-20-2021 Valproic Acid 37.4 ug/mL Low 50-100 [facility] Comment on above: Performed By: #### V PA, ALT, NH3, HBA1C, PROL, AST, PLTCT, LIPB #### [facility] Routine Lab [address] [place] [address] Lipid Panel, Basicon 021 Fasting Time UN Normal [facility] Comment on above: Performed By: #### V PA, ALT, NH3, HBA1C, PROL, AST, PLTCT, LIPB #### [facility] Routine Lab [address] [place] [address] Ammoniaon 11-25-2018 Ammonia mass conc (P) 38 umol/L Normal 16-60 [facility] Comment on above: Performed By: #### N H3 #### [facility] Routine Lab [address] [place] [address] Michael 11-21-2018 ALT enzyme act/vol 32 U/L Normal 10-54 [facility] Reference [facility] Comment on above: Performed By: #### P LTCT, VPA, ALT, AST, PROL, HBA1C #### [facility] Routine Lab [address] [place] [address] Niru 11-21-2018 AST enzyme act/vol 23 U/L Normal 14-40 [facility] Reference [facility] Comment on above: Performed By: #### P LTCT, VPA, ALT, AST, PROL, HBA1C #### [facility] Routine Lab [address] [place] [address] Hemoglobin A1con 11-21-2018 Hemoglobin A1c/Hemoglobin.tot al mass fraction (Bld) 5.5 % Normal 4.3-5.6 [facility] Comment on above: Performed By: #### P LTCT, VPA, ALT, AST, PROL, HBA1C #### [facility] Routine Lab [address] [place] [address] Hemoglobin A1c/Hemoglobin.tot al mass fraction (Bld) 111 mg/dL Normal [facility] Comment on above: Performed By: #### P LTCT, VPA, ALT, AST, PROL, HBA1C #### [facility] Routine Lab [address] [address] Platelet Counton 11-21-2018 Platelets #/vol (Bld) 203 10*3/uL Normal 150-400 [facility] Comment on above: Performed By: #### P LTCT, VPA, ALT, AST, PROL, HBA1C #### [facility] Routine Lab [address] [place] [address] Prolactinon 11-21-2018 Protein mass conc 38.4 ng/mL High 4.0-15.2 [facility] Reference Lab Comment on above: Performed By: #### P LTCT, VPA, ALT, AST, PROL, HBA1C #### [facility] Routine Lab [address] [phone] Valproic Acidon 11-21-2018 Protein mass conc 53.4 ug/mL Normal 50-100 [facility] Reference [facility] Comment on above: Performed By: #### P LTCT, VPA, ALT, AST, PROL, HBA1C #### [facility] Routine Lab [address] [place] [address] CBCon 12-30-2017 Absolute nRBC <0.01 Normal <0.01 [facility] Comment on above: Performed By: #### C BC, VPA, CMP #### [facility] Routine Lab [address] [address] Erythrocyte distribution width Ratio (RBC) 12.1 % Normal 11.5-15.0 [facility] Comment on above: Performed By: #### C BC, VPA, CMP #### [facility] Routine Lab [address] [address] Hematocrit Volume Fraction (Bld) 43.5 % Normal 39.0-51.0 [facility] Comment on above: Performed By: #### C BC, VPA, CMP #### [facility] Routine Lab [address] [place], [place] [address] Hemoglobin mass conc (Bld) 14.2 g/dL Normal 13.0-17.0 [facility] Comment on above: Performed By: #### C BC, VPA, CMP #### [facility] Routine Lab [address] [place], [place] [address] MCH Entitic mass (RBC) 28.5 pG Normal 26.0-34.0 [facility] Comment on above: Performed By: #### C BC, VPA, CMP #### [facility] Routine Lab [address] [place], [place] [address] MCHC mass conc (RBC) 32.6 g/dL Normal 30.5-36.0 [facility] Comment on above: Performed By: #### C BC, VPA, CMP #### [facility] Routine Lab [address] [place], [place] [address] MCV Entitic volume (RBC) 87.3 fL Normal 80.0-100.0 [facility] Comment on above: Performed By: #### C BC, VPA, CMP #### [facility] Routine Lab [address] [place] [id number] Platelet mean volume Entitic volume (Bld) 11.3 fL Normal 9.0-12.7 [facility] Comment on above: Performed By: #### C BC, VPA, CMP #### [facility] Routine Lab [address] [place], [place] [address] Platelets #/vol (Bld) 202 10*3/uL Normal 150-400 [facility] Comment on above: Performed By: #### C BC, VPA, CMP #### [facility] Routine Lab [address] [place], [place] [address] RBC #/vol (Bld) 4.98 10*6/uL Normal 4.20-6.00 [facility] Comment on above: Performed By: #### C BC, VPA, CMP #### [facility] Routine Lab [address] [place], [place] [address] WBC #/vol (Bld) 8.36 10*3/uL Normal 3.70-11.00 [facility] Comment on above: Performed By: #### C BC, VPA, CMP #### [facility] Routine Lab [address] [place], [place] [address] Comp Metabolic Panelon 12-30 Albumin mass conc 4.4 g/dL Normal 3.9-4.9 [facility] Comment on above: Performed By: #### C BC, VPA, CMP #### [facility] Routine Lab [address] [phone] ALP enzyme act/vol 60 U/L Normal 36-108 [facility] Comment on above: Performed By: #### C BC, VPA, CMP #### [facility] Routine Lab [address] [address] ALT enzyme act/vol 43 U/L Normal 10-54 [facility] Comment on above: Performed By: #### C BC, VPA, CMP #### [facility] Routine Lab [address] [place], [place] [address] Anion gap molar conc 15 mmol/L Normal 9-18 [facility] Comment on above: Performed By: #### C BC, VPA, CMP #### [facility] Routine Lab [address] [place], [place] [address] AST enzyme act/vol 32 U/L Normal 14-40 [facility] Comment on above: Performed By: #### C BC, VPA, CMP #### [facility] Routine Lab [address] [place], [place] [address] Bilirubin Ql (U) 0.3 mg/dL Normal 0.2-1.3 [facility] Reference Lab Comment on above: Performed By: #### C BC, VPA, CMP #### [facility] Routine Lab [address] [phone] Calcium mass conc 9.0 mg/dL Normal 8.5-10.2 [facility] Comment on above: Performed By: #### C BC, VPA, CMP #### [facility] Routine Lab [address] [phone] Chloride molar conc 101 mmol/L Normal 97-105 [facility] Comment on above: Performed By: #### C BC, VPA, CMP #### [facility] Routine Lab [address] [phone] CO2 molar conc 24 mmol/L Normal 22-30 [facility] Comment on above: Performed By: #### C BC, VPA, CMP #### [facility] Routine Lab [address] [phone] Creatinine mass conc 0.66 mg/dL Low 0.73-1.22 [facility] Comment on above: Performed By: #### C BC, VPA, CMP #### [facility] Routine Lab [address] [phone] eGFR- Amer. >60 Normal [facility] Comment on above: Performed By: #### C BC, VPA, CMP #### [facility] Routine Lab [address] [phone] GFR/1.73 sq M predicted among non-blacks MDRD vol rate/area (S/P/Bld) mL/min/{1.73_m2} Normal [facility] Comment on above: Performed By: #### C BC, VPA, CMP #### [facility] Routine Lab [address] [phone] Glucose mass conc 124 mg/dL High 74-99 [facility] Comment on above: Performed By: #### C BC, VPA, CMP #### [facility] Routine Lab [address] [address] Potassium molar conc 4.4 mmol/L Normal 3.7-5.1 [facility] Comment on above: Performed By: #### C BC, VPA, CMP #### [facility] Routine Lab [address] [address] Protein mass conc 6.8 g/dL Normal 6.3-8.0 [facility] Comment on above: Performed By: #### C BC, VPA, CMP #### [facility] Routine Lab [address] [address] Sodium molar conc 140 mmol/L Normal 136-144 [facility] Comment on above: Performed By: #### C BC, VPA, CMP #### [facility] Routine Lab [address] [phone] Urea nitrogen mass conc 9 mg/dL Normal 9-24 [facility] Comment on above: Performed By: #### C BC, VPA, CMP #### [facility] Routine Lab [address] [address] Valproic Acidon 12-30-2017 Protein mass conc 62.0 ug/mL Normal 50-100 [facility] Comment on above: Performed By: #### C BC, VPA, CMP #### [facility] Routine Lab [address] [address] Office Visit: Spine Visiton 07-07-2017 Documentation of current medications (procedure) Done Invalid Interpretation Code [facility] Work Phone: Tobacco smoking status NHIS Tobacco smoking status NHIS Invalid Interpretation Code [facility] Work Phone: Tobacco use [facility] Never smoker Invalid Interpretation Code [facility] Work Phone: Vital Signs Date Time Vital Sign Value Performing Clinician Facility 04-21-2025 15:40-0400 Body mass index (BMI) [Ratio] 46.36 kg/m2 Sarah Herrmann INDUSTRIAL REGISTERED NURSE.SALES SUPPORT REP Work Phone: [facility] 04-21-2025 15:40-0400 Body weight 163.8 kg Sarah Herrmann INDUSTRIAL REGISTERED NURSE.SALES SUPPORT REP Work Phone: [facility] 04-21-2025 15:40-0400 Diastolic blood pressure 78 mm[Hg] Sarah Herrmann INDUSTRIAL REGISTERED NURSE.SALES SUPPORT REP Work Phone: [facility] 04-21-2025 15:40-0400 Heart rate 103 /min Sarah Herrmann INDUSTRIAL REGISTERED NURSE.SALES SUPPORT REP Work Phone: [facility] 04-21-2025 15:40-0400 Respiratory rate 20 /min Sarah Herrmann INDUSTRIAL REGISTERED NURSE.SALES SUPPORT REP Work Phone: [facility] 04-21-2025 15:40-0400 SaO2% (BldA) [Mass fraction] 96 % Sarah Herrmann INDUSTRIAL REGISTERED NURSE.SALES SUPPORT REP Work Phone: [facility] 04-21-2025 15:40-0400 Systolic blood pressure 109 mm[Hg] Sarah Herrmann INDUSTRIAL REGISTERED NURSE.SALES SUPPORT REP Work Phone: [facility] 12-20-2024 14:58-0400 Body mass index (BMI) [Ratio] 45.85 kg/m2 Sarah Herrmann INDUSTRIAL REGISTERED NURSE.SALES SUPPORT REP Work Phone: [facility] 12-20-2024 14:58-0400 Body weight 162 kg Sarah Herrmann INDUSTRIAL REGISTERED NURSE.SALES SUPPORT REP Work Phone: [facility] 12-20-2024 14:58-0400 Diastolic blood pressure 78 mm[Hg] Sarah Herrmann INDUSTRIAL REGISTERED NURSE.SALES SUPPORT REP Work Phone: [facility] 12-20-2024 14:58-0400 Heart rate 106 /min Sarah Herrmann INDUSTRIAL REGISTERED NURSE.SALES SUPPORT REP Work Phone: [facility] 12-20-2024 14:58-0400 Respiratory rate 16 /min Sarah Herrmann INDUSTRIAL REGISTERED NURSE.SALES SUPPORT REP Work Phone: [facility] 12-20-2024 14:58-0400 Systolic blood pressure 118 mm[Hg] Sarah Bradys INDUSTRIAL REGISTERED NURSE.SALES SUPPORT REP Work Phone: [facility] 10-10-2024 11:06-0500 Body mass index (BMI) [Ratio] 46.08 kg/m2 Brandee Praisler-Wood INDUSTRIAL REGISTERED NURSE.STENOGRAPHER SECRETARY Work Phone: [facility] 10-10-2024 11:06-0500 Body temperature 97.3 [degF] Brandee Praisler-Wood INDUSTRIAL REGISTERED NURSE.STENOGRAPHER SECRETARY Work Phone: [facility] 10-10-2024 11:06-0500 Body weight 162.8 kg Brandee Praisler-Wood INDUSTRIAL REGISTERED NURSE.STENOGRAPHER SECRETARY Work Phone: [facility] 10-10-2024 11:06-0500 Diastolic blood pressure 78 mm[Hg] Brandee Praisler-Wood INDUSTRIAL REGISTERED NURSE.STENOGRAPHER SECRETARY Work Phone: [facility] 10-10-2024 11:06-0500 Heart rate 104 /min Brandee Praisler-Wood INDUSTRIAL REGISTERED NURSE.STENOGRAPHER SECRETARY Work Phone: [facility] 10-10-2024 11:06-0500 Respiratory rate 20 /min Brandee Praisler-Wood INDUSTRIAL REGISTERED NURSE.STENOGRAPHER SECRETARY Work Phone: [facility] 10-10-2024 11:06-0500 SaO2% (BldA) [Mass fraction] 95 % Brandee Praisler-Wood INDUSTRIAL REGISTERED NURSE.STENOGRAPHER SECRETARY Work Phone: [facility] 10-10-2024 11:06-0500 Systolic blood pressure 136 mm[Hg] Brandee Praisler-Wood INDUSTRIAL REGISTERED NURSE.STENOGRAPHER SECRETARY Work Phone: [facility] 08-15-2024 09:09-0500 Diastolic blood pressure 70 mm[Hg] Hector Currie MD Work Phone: [facility] 08-15-2024 09:09-0500 Systolic blood pressure 118 mm[Hg] Hector Currie MD Work Phone: [facility] 08-15-2024 08:26-0500 Body mass index (BMI) [Ratio] 45.85 kg/m2 Hector Currie MD Work Phone: [facility] 08-15-2024 08:26-0500 Body temperature 97.5 [degF] Hector Currie MD Work Phone: [facility] 08-15-2024 08:26-0500 Body weight 162 kg Hector Currie MD Work Phone: [facility] 08-15-2024 08:26-0500 Heart rate 98 /min Hector Currie MD Work Phone: [facility] 08-15-2024 08:26-0500 Respiratory rate 16 /min Hector Currie MD Work Phone: [facility] 08-15-2024 08:26-0500 SaO2% (BldA) [Mass fraction] 96 % Hector Currie MD Work Phone: [facility] 06-14-2024 15:45-0400 Body mass index (BMI) [Ratio] 43.99 kg/m2 Liudmila Lisa INDUSTRIAL REGISTERED NURSE.STENOGRAPHER SECRETARY Work Phone: [facility] 06-14-2024 15:45-0400 Body weight 155.4 kg Liudmila Lisa INDUSTRIAL REGISTERED NURSE.STENOGRAPHER SECRETARY Work Phone: [facility] 06-14-2024 15:45-0400 Diastolic blood pressure 74 mm[Hg] Liudmila Lisa INDUSTRIAL REGISTERED NURSE.STENOGRAPHER SECRETARY Work Phone: [facility] 06-14-2024 15:45-0400 Heart rate 88 /min Liudmila Lisa INDUSTRIAL REGISTERED NURSE.STENOGRAPHER SECRETARY Work Phone: [facility] 06-14-2024 15:45-0400 Respiratory rate 18 /min Liudmila Lisa INDUSTRIAL REGISTERED NURSE.STENOGRAPHER SECRETARY Work Phone: [facility] 06-14-2024 15:45-0400 Systolic blood pressure 124 mm[Hg] Liudmila Lisa INDUSTRIAL REGISTERED NURSE.STENOGRAPHER SECRETARY Work Phone: [facility] 05-09-2024 12:31-0400 Body mass index (BMI) [Ratio] 44.24 kg/m2 Rosalinda Aberegg PA Work Phone: [facility] 05-09-2024 12:31-0400 Body temperature 98.2 [degF] Krislyn Aberegg PA Work Phone: [facility] 05-09-2024 12:31-0400 Body weight 156.3 kg Krislyn Aberegg PA Work Phone: [facility] 05-09-2024 12:31-0400 Diastolic blood pressure 66 mm[Hg] Krislyn Aberegg PA Work Phone: [facility] 05-09-2024 12:31-0400 Heart rate 98 /min Krislyn Aberegg PA Work Phone: [facility] 05-09-2024 12:31-0400 Respiratory rate 18 /min Krislyn Aberegg PA Work Phone: [facility] 05-09-2024 12:31-0400 SaO2% (BldA) [Mass fraction] 96 % Krislyn Aberegg PA Work Phone: [facility] 05-09-2024 12:31-0400 Systolic blood pressure 120 mm[Hg] Krislyn Aberegg PA Work Phone: [facility] 04-05-2024 14:39-0400 Body mass index (BMI) [Ratio] 45.71 kg/m2 Hector Currie MD Work Phone: [facility] 04-05-2024 14:39-0400 Body temperature 97.39 [degF] Hector Currie MD Work Phone: [facility] 04-05-2024 14:39-0400 Body weight 161.5 kg Hector Currie MD Work Phone: [facility] 04-05-2024 14:39-0400 Diastolic blood pressure 78 mm[Hg] Hector Currie MD Work Phone: [facility] 04-05-2024 14:39-0400 Heart rate 90 /min Hector Currie MD Work Phone: [facility] 04-05-2024 14:39-0400 Respiratory rate 18 /min Hector Currie MD Work Phone: [facility] 04-05-2024 14:39-0400 SaO2% (BldA) [Mass fraction] 96 % Hector Currie MD Work Phone: [facility] 04-05-2024 14:39-0400 Systolic blood pressure 112 mm[Hg] Hector Currie MD Work Phone: [facility] 12-01-2023 18:39-0400 Body mass index (BMI) [Ratio] 46.09 kg/m2 Hector Currie MD Work Phone: [facility] 12-01-2023 18:39-0400 Body weight 162.84 kg Hector Currie MD Work Phone: [facility] 12-01-2023 18:39-0400 Diastolic blood pressure 64 mm[Hg] Hector Currie MD Work Phone: [facility] 12-01-2023 18:39-0400 Heart rate 104 /min Hector Currie MD Work Phone: [facility] 12-01-2023 18:39-0400 Respiratory rate 16 /min Hector Currie MD Work Phone: [facility] 12-01-2023 18:39-0400 SaO2% (BldA) [Mass fraction] 96 % Hector Currie MD Work Phone: [facility] 12-01-2023 18:39-0400 Systolic blood pressure 118 mm[Hg] Hector Currie MD Work Phone: [facility] 11-06-2023 10:07-0400 Body temperature 98.49 [degF] Anneliese Francisco INDUSTRIAL REGISTERED NURSE.STENOGRAPHER SECRETARY Work Phone: [facility] 11-06-2023 10:07-0400 Body weight 164 kg Anneliese Francisco INDUSTRIAL REGISTERED NURSE.STENOGRAPHER SECRETARY Work Phone: [facility] 11-06-2023 10:07-0400 Diastolic blood pressure 69 mm[Hg] Anneliese Francisco INDUSTRIAL REGISTERED NURSE.STENOGRAPHER SECRETARY Work Phone: [facility] 11-06-2023 10:07-0400 Heart rate 106 /min Anneliese Francisco INDUSTRIAL REGISTERED NURSE.STENOGRAPHER SECRETARY Work Phone: [facility] 11-06-2023 10:07-0400 Respiratory rate 20 /min Anneliese Francisco INDUSTRIAL REGISTERED NURSE.STENOGRAPHER SECRETARY Work Phone: [facility] 11-06-2023 10:07-0400 SaO2% (BldA) [Mass fraction] 95 % Anneliese Francisco INDUSTRIAL REGISTERED NURSE.STENOGRAPHER SECRETARY Work Phone: [facility] 11-06-2023 10:07-0400 Systolic blood pressure 110 mm[Hg] Anneliese Francisco INDUSTRIAL REGISTERED NURSE.STENOGRAPHER SECRETARY Work Phone: [facility] 09-28-2023 10:55-0500 Body weight 159.67 kg Carmelita Kegeronimo INDUSTRIAL REGISTERED NURSE.STENOGRAPHER SECRETARY Work Phone: [facility] 05-23-2023 15:28-0400 Body temperature 97.3 [degF] Sreekanth Ackerman MD Work Phone: [facility] 05-23-2023 15:28-0400 Body weight 162.66 kg Sreekanth Ackerman MD Work Phone: [facility] 05-23-2023 15:28-0400 Diastolic blood pressure 80 mm[Hg] Sreekanth Ackerman MD Work Phone: [facility] 05-23-2023 15:28-0400 Heart rate 94 /min Sreekanth Ackerman MD Work Phone: [facility] 05-23-2023 15:28-0400 Respiratory rate 16 /min Sreekanth Ackerman MD Work Phone: [facility] 05-23-2023 15:28-0400 Systolic blood pressure 122 mm[Hg] Sreekanth Ackerman MD Work Phone: [facility] 02-13-2023 16:33-0400 Body temperature 97.81 [degF] Celso Smith INDUSTRIAL REGISTERED NURSE.STENOGRAPHER SECRETARY Work Phone: [facility] 02-13-2023 16:33-0400 Body weight 166.56 kg Celso Smith INDUSTRIAL REGISTERED NURSE.STENOGRAPHER SECRETARY Work Phone: [facility] 02-13-2023 16:33-0400 Diastolic blood pressure 68 mm[Hg] Celso Smith INDUSTRIAL REGISTERED NURSE.STENOGRAPHER SECRETARY Work Phone: [facility] 02-13-2023 16:33-0400 Heart rate 110 /min Celso Smith INDUSTRIAL REGISTERED NURSE.STENOGRAPHER SECRETARY Work Phone: [facility] 02-13-2023 16:33-0400 Respiratory rate 20 /min Celso Smith INDUSTRIAL REGISTERED NURSE.STENOGRAPHER SECRETARY Work Phone: [facility] 02-13-2023 16:33-0400 SaO2% (BldA) [Mass fraction] 98 % Celso Smith INDUSTRIAL REGISTERED NURSE.STENOGRAPHER SECRETARY Work Phone: [facility] 02-13-2023 16:33-0400 Systolic blood pressure 122 mm[Hg] Celso Smith INDUSTRIAL REGISTERED NURSE.STENOGRAPHER SECRETARY Work Phone: [facility] 12-26-2022 11:04-0400 Body weight 168.28 kg Carmelita Thomas INDUSTRIAL REGISTERED NURSE.STENOGRAPHER SECRETARY Work Phone: [facility] 12-17-2022 16:47-0400 Body temperature 98.2 [degF] Madelaine Athy PA-C Work Phone: [facility] 12-17-2022 16:47-0400 Body weight 168.38 kg Madelaine Athy PA-C Work Phone: [facility] 12-17-2022 16:47-0400 Diastolic blood pressure 78 mm[Hg] Madelaine Athy PA-C Work Phone: [facility] 12-17-2022 16:47-0400 Heart rate 94 /min Madelaine Athy PA-C Work Phone: [facility] 12-17-2022 16:47-0400 Respiratory rate 18 /min Madelaine Athy PA-C Work Phone: [facility] 12-17-2022 16:47-0400 SaO2% (BldA) [Mass fraction] 96 % Madelaine Athy PA-C Work Phone: [facility] 12-17-2022 16:47-0400 Systolic blood pressure 118 mm[Hg] Madelaine Athy PA-C Work Phone: [facility] 11-17-2022 17:34-0400 Body temperature 98.29 [degF] Sreekanth Ackerman MD Work Phone: [facility] 11-17-2022 17:34-0400 Body weight 166.92 kg Sreekanth Ackerman MD Work Phone: [facility] 11-17-2022 17:34-0400 Diastolic blood pressure 84 mm[Hg] Sreekanth Ackerman MD Work Phone: [facility] 11-17-2022 17:34-0400 Heart rate 112 /min Sreekanth Ackerman MD Work Phone: [facility] 11-17-2022 17:34-0400 Respiratory rate 18 /min Sreekanth Ackerman MD Work Phone: [facility] 11-17-2022 17:34-0400 SaO2% (BldA) [Mass fraction] 96 % Sreekanth Ackerman MD Work Phone: [facility] 11-17-2022 17:34-0400 Systolic blood pressure 132 mm[Hg] Sreekanth Ackerman MD Work Phone: [facility] 11-04-2022 18:39-0400 Body temperature 97.81 [degF] Hector Currie MD Work Phone: [facility] 11-04-2022 18:39-0400 Body weight 167.83 kg Hector Currie MD Work Phone: [facility] 11-04-2022 18:39-0400 Diastolic blood pressure 82 mm[Hg] Hector Currie MD Work Phone: [facility] 11-04-2022 18:39-0400 Heart rate 79 /min Hector Currie MD Work Phone: [facility] 11-04-2022 18:39-0400 Respiratory rate 18 /min Hector Currie MD Work Phone: [facility] 11-04-2022 18:39-0400 SaO2% (BldA) [Mass fraction] 96 % Hector Currie MD Work Phone: [facility] 11-04-2022 18:39-0400 Systolic blood pressure 134 mm[Hg] Hector Currie MD Work Phone: [facility] 10-03-2022 13:01-0500 Body weight 171.91 kg Carmelita Thomas INDUSTRIAL REGISTERED NURSE.STENOGRAPHER SECRETARY Work Phone: [facility] 09-26-2022 15:52-0500 Body weight 171.91 kg Sarah Herrmann INDUSTRIAL REGISTERED NURSE.SALES SUPPORT REP Work Phone: [facility] 09-26-2022 15:52-0500 Diastolic blood pressure 80 mm[Hg] Sarah Herrmann INDUSTRIAL REGISTERED NURSE.SALES SUPPORT REP Work Phone: [facility] 09-26-2022 15:52-0500 Heart rate 102 /min Sarah Herrmann INDUSTRIAL REGISTERED NURSE.SALES SUPPORT REP Work Phone: [facility] 09-26-2022 15:52-0500 Respiratory rate 16 /min Sarah Herrmann INDUSTRIAL REGISTERED NURSE.SALES SUPPORT REP Work Phone: [facility] 09-26-2022 15:52-0500 SaO2% (BldA) [Mass fraction] 96 % Sarah Herrmann INDUSTRIAL REGISTERED NURSE.SALES SUPPORT REP Work Phone: [facility] 09-26-2022 15:52-0500 Systolic blood pressure 120 mm[Hg] Sarah Herrmann INDUSTRIAL REGISTERED NURSE.SALES SUPPORT REP Work Phone: [facility] 09-17-2022 15:44-0500 Body temperature 98.01 [degF] Liudmila Lisa INDUSTRIAL REGISTERED NURSE.STENOGRAPHER SECRETARY Work Phone: [facility] 09-17-2022 15:44-0500 Body weight 172.09 kg Liudmila Lisa INDUSTRIAL REGISTERED NURSE.STENOGRAPHER SECRETARY Work Phone: [facility] 09-17-2022 15:44-0500 Diastolic blood pressure 88 mm[Hg] Liudmila Lisa INDUSTRIAL REGISTERED NURSE.STENOGRAPHER SECRETARY Work Phone: [facility] 09-17-2022 15:44-0500 Heart rate 119 /min Liudmila Lisa INDUSTRIAL REGISTERED NURSE.STENOGRAPHER SECRETARY Work Phone: [facility] 09-17-2022 15:44-0500 Respiratory rate 20 /min Liudmila Lisa INDUSTRIAL REGISTERED NURSE.STENOGRAPHER SECRETARY Work Phone: [facility] 09-17-2022 15:44-0500 SaO2% (BldA) [Mass fraction] 97 % Liudmila Lisa INDUSTRIAL REGISTERED NURSE.STENOGRAPHER SECRETARY Work Phone: [facility] 09-17-2022 15:44-0500 Systolic blood pressure 146 mm[Hg] Liudmila Lisa INDUSTRIAL REGISTERED NURSE.STENOGRAPHER SECRETARY Work Phone: [facility] 09-16-2022 09:50-0500 Heart rate 110 /min [facility] 09-16-2022 09:50-0500 Respiratory rate 22 /min [facility] 09-16-2022 09:03-0500 SaO2% (BldA) [Mass fraction] 96 % [facility] 09-16-2022 08:45-0500 Body height 187.96 cm [facility] 09-16-2022 08:45-0500 Body mass index (BMI) [Ratio] 50.1 kg/m2 [facility] 09-16-2022 08:45-0500 Body temperature 97.5 [degF] [facility] 09-16-2022 08:45-0500 Body weight 176.9 kg [facility] 09-16-2022 08:45-0500 Diastolic blood pressure 92 mm[Hg] [facility] 09-16-2022 08:45-0500 Systolic blood pressure 154 mm[Hg] [facility] 07-22-2022 11:11-0500 Body weight 175.09 kg Sarah Herrmann INDUSTRIAL REGISTERED NURSE.SALES SUPPORT REP Work Phone: [facility] 07-22-2022 11:11-0500 Diastolic blood pressure 88 mm[Hg] Sarah Herrmann INDUSTRIAL REGISTERED NURSE.SALES SUPPORT REP Work Phone: [facility] 07-22-2022 11:11-0500 Heart rate 84 /min Sarah Herrmann INDUSTRIAL REGISTERED NURSE.SALES SUPPORT REP Work Phone: [facility] 07-22-2022 11:11-0500 Respiratory rate 26 /min Sarah Herrmann INDUSTRIAL REGISTERED NURSE.SALES SUPPORT REP Work Phone: [facility] 07-22-2022 11:11-0500 Systolic blood pressure 124 mm[Hg] Sarah Herrmann INDUSTRIAL REGISTERED NURSE.SALES SUPPORT REP Work Phone: [facility] 05-13-2022 18:15-0400 Body weight 171.91 kg Hector Currie MD Work Phone: [facility] 05-13-2022 18:15-0400 Diastolic blood pressure 72 mm[Hg] Hector Currie MD Work Phone: [facility] 05-13-2022 18:15-0400 Heart rate 92 /min Hector Currie MD Work Phone: [facility] 05-13-2022 18:15-0400 SaO2% (BldA) [Mass fraction] 97 % Hector Currie MD Work Phone: [facility] 05-13-2022 18:15-0400 Systolic blood pressure 112 mm[Hg] Hector Currie MD Work Phone: [facility] 05-01-2022 16:12-0400 Body temperature 97.81 [degF] Alyssa Hernandez INDUSTRIAL REGISTERED NURSE.STENOGRAPHER SECRETARY Work Phone: [facility] 05-01-2022 16:12-0400 Body weight 167.92 kg Alyssa Hernandez INDUSTRIAL REGISTERED NURSE.STENOGRAPHER SECRETARY Work Phone: [facility] 05-01-2022 16:12-0400 Diastolic blood pressure 80 mm[Hg] Alyssa Hernandez INDUSTRIAL REGISTERED NURSE.STENOGRAPHER SECRETARY Work Phone: [facility] 05-01-2022 16:12-0400 Heart rate 108 /min Alyssa Callow INDUSTRIAL REGISTERED NURSE.STENOGRAPHER SECRETARY Work Phone: [facility] 05-01-2022 16:12-0400 Respiratory rate 18 /min Alyssa Hayesow INDUSTRIAL REGISTERED NURSE.STENOGRAPHER SECRETARY Work Phone: [facility] 05-01-2022 16:12-0400 SaO2% (BldA) [Mass fraction] 97 % Alyssa Callow INDUSTRIAL REGISTERED NURSE.STENOGRAPHER SECRETARY Work Phone: [facility] 05-01-2022 16:12-0400 Systolic blood pressure 132 mm[Hg] Alyssa Callow INDUSTRIAL REGISTERED NURSE.STENOGRAPHER SECRETARY Work Phone: [facility] 03-05-2022 10:00-0400 Body temperature 97.2 [degF] Jaret King MD Work Phone: [facility] 03-05-2022 10:00-0400 Diastolic blood pressure 62 mm[Hg] Jaret King MD Work Phone: [facility] 03-05-2022 10:00-0400 Heart rate 88 /min Jaret King MD Work Phone: [facility] 03-05-2022 10:00-0400 Respiratory rate 20 /min Jaret King MD Work Phone: [facility] 03-05-2022 10:00-0400 SaO2% (BldA) [Mass fraction] 95 % Jaret King MD Work Phone: [facility] 03-05-2022 10:00-0400 Systolic blood pressure 122 mm[Hg] Jaret King MD Work Phone: [facility] 02-05-2022 08:11-0400 Body height 188 cm Pacc 1 Work Phone: [facility] 02-05-2022 08:11-0400 Body temperature 98.71 [degF] Pacc 1 Work Phone: [facility] 02-05-2022 08:11-0400 Body weight 174.18 kg Pacc 1 Work Phone: [facility] 02-05-2022 08:11-0400 Diastolic blood pressure 82 mm[Hg] Pacc 1 Work Phone: [facility] 02-05-2022 08:11-0400 Heart rate 114 /min Pacc 1 Work Phone: [facility] 02-05-2022 08:11-0400 Respiratory rate 16 /min Pacc 1 Work Phone: [facility] 02-05-2022 08:11-0400 SaO2% (BldA) [Mass fraction] 96 % Pacc 1 Work Phone: [facility] 02-05-2022 08:11-0400 Systolic blood pressure 140 mm[Hg] Pacc 1 Work Phone: [facility] 12-03-2021 08:48-0400 Body height 186 cm Roseanna Ross INDUSTRIAL REGISTERED NURSE.STENOGRAPHER SECRETARY Work Phone: [facility] 12-03-2021 08:48-0400 Body weight 178.26 kg Roseanna Ross INDUSTRIAL REGISTERED NURSE.STENOGRAPHER SECRETARY Work Phone: [facility] 12-03-2021 08:48-0400 Diastolic blood pressure 80 mm[Hg] Roseanna Ross INDUSTRIAL REGISTERED NURSE.STENOGRAPHER SECRETARY Work Phone: [facility] 12-03-2021 08:48-0400 Heart rate 102 /min Roseanna Ross INDUSTRIAL REGISTERED NURSE.STENOGRAPHER SECRETARY Work Phone: [facility] 12-03-2021 08:48-0400 SaO2% (BldA) [Mass fraction] 96 % Roseanna Ross INDUSTRIAL REGISTERED NURSE.STENOGRAPHER SECRETARY Work Phone: [facility] 12-03-2021 08:48-0400 Systolic blood pressure 132 mm[Hg] Roseanna Ross INDUSTRIAL REGISTERED NURSE.STENOGRAPHER SECRETARY Work Phone: [facility] 07-07-2017 11:27-0500 BMI (Body Mass Index) 43.74 kg/m2 Anneliese Fry [facility] Work Phone: 07-07-2017 11:27-0500 Height 190.5 cm Anneliese Fraser [facility] Work Phone: 07-07-2017 11:050 Weight 158.76 kg Anneliese Fraser [facility] Work Phone: Encounters Encounter Date Encounter Type Care Provider Facility Start: 06-10-2025 End: 06-10-2025 ambulatory HECTOR Holden CURRIE Facility:[facility] Start: 06-08-2025 End: 06-08-2025 ambulatory Hector D Rinkuampjulia Facility:[facility] Start: 05-05-2025 End: 05-05-2025 Telephone encounter Hector Currie MD Work Phone: [facility] [place] Comment on above: Orders Start: 04-21-2025 End: 04-21-2025 Office outpatient visit 25 minutes Sarah Herrmann APRN.SALES SUPPORT REP Work Phone: [facility] [place] Comment on [...] End: 04-21-2025 ambulatory [facility] Facility:[facility] Start: 02-07-2025 End: 02-07-2025 Refill Hector Currie MD Work Phone: [facility] [place] Comment on above: Refill Request Start: 12-22-2024 End: 02-21-2025 Follow-up encounter Sarah Herrmann APRN.SALES SUPPORT REP Work Phone: [facility] [place] Start: 12-20-2024 End: 12-20-2024 ambulatory HECTOR CURRIE Facility:[facility] Start: 12-20-2024 End: 12-20-2024 Office outpatient visit 25 minutes Sarah Herrmannyamel CARNEYSALES SUPPORT REP Work Phone: [facility] [place] Comment on above: Primary hypertension (Primary Dx); [...] Start: 12-20-2024 End: 12-20-2024 ambulatory HECTOR CURRIE Facility:[facility] Start: 11-30-2024 End: 11-30-[address] Hector Currie MD Work Phone: [facility] Work Phone: Start: 11-30-2024 End: 11-30-[address] Rachid Mary MD -Radiology, [facility] Work Phone: Start: 11-30-2024 End: 11-30-2024 ambulatory Rachid Mary Facility:[facility] Start: 11-14-2024 End: 11-14-2024 Refill Hector Currie MD Work Phone: [address] [place] [id number] Comment on above: Refill Request Start: 10-11-2024 End: 12-11-2024 Follow-up encounter Celso Smith APRN.STENOGRAPHER SECRETARY Work Phone: [facility] Start: 10-10-2024 End: 10-10-2024 ambulatory HECOTR CURRIE Facility:[facility] Start: 10-10-2024 End: 10-10-2024 Patient encounter procedure Brandee Mcmanus APRN.CNP Work Phone: [facility] Comment on above: Flu-like symptoms (P rimary Dx); Acute upper respiratory infection, unspecified; Influenza A Start: 08-15-2024 End: 08-18-2024 Telephone encounter Hector Currie MD Work Phone: [facility] [place] Comment on above: Patient Request Start: 08-15-2024 End: 08-15-2024 ambulatory HECTOR CURRIE Facility:[facility] Start: 08-15-2024 End: 08-15-2024 Office outpatient visit [...] Start: 08-15-2024 End: 08-15-2024 ambulatory HECTOR CURRIE Facility:[facility] Start: 08-09-2024 End: 08-10-2024 Refill Liudmila Breaux APRN.STENOGRAPHER SECRETARY Work Phone: [facility] [place] Comment on above: Refill Request Start: 07-30-2024 End: 07-30-2024 [facility] Start: 07-28-2024 End: 08-01-2024 Refill Sarah Herrmann APRN.SALES SUPPORT REP Work Phone: [facility] [place] Comment on above: Refill Request Start: 07-12-2024 End: 07-13-2024 Refill Hector Currie MD Work Phone: [facility] [place] Comment on above: Refill Request Start: 07-04-2024 End: 07-04-2024 Telephone encounter Liudmila Breaux APRN.STENOGRAPHER SECRETARY Work Phone: [facility] [place] Comment on above: Results - Sleep Stud y Start: 06-29-2024 End: 06-29-2024 ambulatory Hector Currie Facility:[facility] Start: 06-17-2024 End: 06-20-2024 Telephone encounter Hector Currie MD Work Phone: [facility] [place] Comment on above: Electronic Communica tion Start: 06-14-2024 End: 06-14-2024 Patient encounter procedure Liudmila Breaux APRNSimonSTENOGRAPHER SECRETARY Work Phone: [facility] [place] Comment on above: DWIGHT (obstructive sle ep apnea) (Primary Dx); Class 3 severe obesity due to excess calories with body mass index (BMI) of 40.0 to 44.9 in adult, unspecified whether serious comorbidity present (HCC) Start: 05-09-2024 End: 05-09-2024 Patient encounter procedure Rosalinda CARR Work Phone: [facility] Comment on above: Sore throat (Primary Dx) Start: 04-05-2024 End: 04-05-2024 Office outpatient visit 25 minutes Hector Currie MD Work Phone: [facility] [place] Comment on above: Controlled type 2 di abetes mellitus without complication, without long-term current use of insulin (HCC) (Primary Dx); Class 3 severe obesity without serious comorbidity with body mass index (BMI) of 45.0 to 49.9 in adult, unspecified obesity type (HCC); Primary hypertension; Rash; DWIGHT (obstructive sleep apnea) Start: 03-26-2024 Transcribe Orders Aidee toro Work Phone: [facility] Comment on above: On chcf drug th erapy (Primary Dx) Start: 02-08-2024 ambulatory Hector montesinos MD Work Phone: [facility] [place] Comment on above: Trulicity Start: 12-01-2023 End: 12-01-2023 Office outpatient visit 25 minutes Hector Currie MD Work Phone: [facility] [place] Comment on above: Controlled type 2 di abetes mellitus without complication, without long-term current use of insulin (HCC) (Primary Dx); Rash; Class 3 severe obesity due to excess calories with body mass index (BMI) of 45.0 to 49.9 in adult, unspecified whether serious comorbidity present (HCC); History of RSV infection Start: 11-06-2023 End: 11-06-2023 Subsequent hospital visit by physician [facility] Work Phone: Radiology Comment on above: URI, acute [J06.9] Start: 11-06-2023 End: 11-06-2023 Patient encounter procedure Anneliese Francisco INDUSTRIAL REGISTERED NURSE.STENOGRAPHER SECRETARY Work Phone: [facility] Comment on above: URI, acute (Primary Dx); Acute cough Start: 10-23-2023 ambulatory Carmelita Thomas INDUSTRIAL REGISTERED NURSE.STENOGRAPHER SECRETARY Work Phone: General Surgery Comment on above: Trulicity Start: 10-22-2023 End: 10-22-2023 ambulatory [facility] Work Phone: Start: 10-22-2023 End: 10-22-2023 Patient encounter procedure [facility] Work Phone: Start: 10-12-2023 Telephone encounter Carmelita simpson APRN.STENOGRAPHER SECRETARY Work Phone: General Surgery Start: 09-28-2023 End: 09-28-2023 ambulatory Carmelita William INDUSTRIAL REGISTERED NURSE.STENOGRAPHER SECRETARY Work Phone: General Surgery Comment on above: Class 3 severe obesi ty without serious comorbidity with body mass index (BMI) of 45.0 to 49.9 in adult, unspecified obesity type (HCC) (Primary Dx); Controlled type 2 diabetes mellitus without complication, without long-term current use of insulin (HCC) Start: 09-28-2023 End: 09-28-2023 Telemedicine consultation with patient Carmelita Thomas INDUSTRIAL REGISTERED NURSE.STENOGRAPHER SECRETARY Work Phone: [facility] Start: 09-16-2023 Telephone encounter Hector willis MD Work Phone: [facility] [place] Comment on above: Insurance Authorizat ion Start: 08-10-2023 End: 08-10-2023 ambulatory [facility] Work Phone: Start: 08-10-2023 End: 08-10-2023 Patient encounter procedure [facility] Work Phone: Start: 07-15-2023 Telephone encounter Hector willis MD Work Phone: [facility] [place] Comment on above: Patient to resume PA P Start: 05-23-2023 End: 05-23-2023 Patient encounter procedure Sreekanth Ackerman MD Work Phone: [facility] Comment on above: Toothache (Primary D x) Start: 02-13-2023 End: 02-13-2023 Subsequent hospital visit by physician Xr [facility] [place] Work Phone: Radiology Comment on above: Foot pain, left [M79 .[id number]] Start: 02-13-2023 End: 02-13-2023 Patient encounter procedure Celso Smith APRN.STENOGRAPHER SECRETARY Work Phone: [facility] Comment on above: Acute left ankle tej n (Primary Dx); Foot pain, left Start: 12-26-2022 Telephone encounter Hector willis MD Work Phone: [facility] [place] Comment on above: [employer] [place] dropped off Start: 12-26-2022 End: 12-26-2022 ambulatory Carmelita Thomas APRN.STENOGRAPHER SECRETARY Work Phone: General Surgery Comment on above: Class 3 severe obesi ty without serious comorbidity with body mass index (BMI) of 45.0 to 49.9 in adult, unspecified obesity type (HCC) (Primary Dx); Prediabetes Start: 12-26-2022 End: 12-26-2022 Telemedicine consultation with patient Carmelita William CARNEYSTENOGRAPHER SECRETARY Work Phone: [facility] Start: 12-17-2022 End: 12-17-2022 Subsequent hospital visit by physician Xr [facility] [place] Work Phone: Radiology Comment on above: Open [...] Refill Request Start: 11-18-2022 Telephone encounter Madelaine R Zack nova PA-C Work Phone: [facility] Comment on above: Results Start: 11-17-2022 End: 11-17-2022 Patient encounter procedure Sreekanth Ackerman MD Work Phone: [facility] Comment on above: URI, acute [...] Start: 10-03-2022 End: 10-03-2022 ambulatory Carmelita Thomas APRN.STENOGRAPHER SECRETARY Work Phone: General Surgery Comment on above: Class 3 severe obesi ty without serious comorbidity with body mass index (BMI) of 45.0 to 49.9 in adult, unspecified obesity type (HCC) (Primary Dx); Prediabetes; Primary hypertension; DWIGHT (obstructive sleep apnea); Gastroesophageal reflux disease, unspecified whether esophagitis present Start: 10-03-2022 End: 10-03-2022 Telemedicine consultation with patient Carmelita William CARNEYSTENOGRAPHER SECRETARY Work Phone: [facility] Start: 09-26-2022 End: 09-26-2022 Patient encounter procedure Sarah Herrmann APRN.CNS Work Phone: [facility] [place] Comment on above: Excessive cerumen in ear canal, right (Primary Dx); Impacted cerumen of left ear Start: 09-17-2022 End: 09-17-2022 Patient encounter procedure Liudmila Carlosr INDUSTRIAL REGISTERED NURSE.STENOGRAPHER SECRETARY Work Phone: [facility] [place] Comment on above: Gastroesophageal ref lux disease, unspecified whether esophagitis present (Primary Dx); Atypical chest pain; Class 3 severe obesity due to excess calories with body mass index (BMI) of 45.0 to 49.9 in adult, unspecified whether serious comorbidity present (HCC) Start: 09-16-2022 End: 09-16-2022 Emergency department patient visit [facility] Start: 07-25-2022 Telephone encounter Sarah blackwell INDUSTRIAL REGISTERED NURSE.SALES SUPPORT REP Work Phone: [facility] [place] Comment on above: Results Start: 07-22-2022 End: 07-22-2022 Office outpatient visit 25 minutes Sarah Herrmann INDUSTRIAL REGISTERED NURSE.SALES SUPPORT REP Work Phone: [facility] [place] Comment on above: Essential hypertensi on (Primary [...] encounter Hector willis MD Work Phone: Internal [facility] Comment on above: Lab Orders Start: 05-13-2022 End: 05-13-2022 Office outpatient visit 25 minutes Hector Currie MD Work Phone: [facility] [place] Comment on above: BAJWA (dyspnea on exer tion) (Primary Dx); Essential hypertension; Class 3 severe obesity due to excess calories with body mass index (BMI) of 45.0 to 49.9 in adult, unspecified whether serious comorbidity present (HCC); Mild intermittent asthma without complication; Encounter for immunization; Reactive depression Start: 05-01-2022 End: 05-01-2022 Subsequent hospital visit by physician [facility] [place] Work Phone: Radiology Comment on above: Foot pain, right [M7 9.671] Start: 05-01-2022 End: 05-01-2022 Patient encounter procedure Alyssa Hernandez MARTY.STENOGRAPHER SECRETARY Work Phone: [facility] Comment on above: Foot pain, right (Pr imary Dx) Start: 04-29-2022 Telephone encounter Ligia Older INDUSTRIAL REGISTERED NURSE.STENOGRAPHER SECRETARY Work Phone: [facility] [place] Comment on above: Results Start: 04-25-2022 Orders Only Ligia Older INDUSTRIAL REGISTERED NURSE.STENOGRAPHER SECRETARY Work Phone: [facility] [place] Comment on above: Bilateral lower extr emity edema (Primary Dx); SOB (shortness of breath) on exertion Start: 04-23-2022 Telephone encounter Ligia Older INDUSTRIAL REGISTERED NURSE.RADHA Work Phone: [facility] [place] Comment on above: Results Start: 04-23-2022 End: 04-23-2022 ambulatory [facility] Work Phone: Start: 04-23-2022 End: 04-23-2022 Patient encounter procedure [facility], Specimen Start: 04-23-2022 End: 04-23-2022 Subsequent hospital visit by physician Rosas [facility] Work Phone: Radiology Comment on above: SOB (shortness of br eath) on exertion [R06.02] Start: 03-10-2022 Telephone encounter Roseanna Ross APRN.CNP Work Phone: Gastroenterology Comment on above: Results Start: 03-05-2022 End: 03-05-2022 Subsequent hospital visit by physician Jaret King MD Work Phone: [facility] Comment on above: Family history of co nelia cancer [Z80.0] Start: 02-10-2022 Refill Roseanna Ross APRN.STENOGRAPHER SECRETARY Work Phone: Gastroenterology Comment on above: Refill Request Start: 02-05-2022 End: 02-05-2022 [facility] 1 Work Phone: Pre Anesthesia Comment on [...] Class III, BMI 40-49.9 (morbid obesity) ([facility]) Start: 02-05-2022 End: 02-05-2022 Preprocedural examination done [facility] 1 Work Phone: Pre Anesthesia Start: 12-13-2021 End: 12-13-2021 ambulatory Pavan Hampton PT Work Phone: [facility] Comment on above: Congenital pes planu s, unspecified laterality (Primary Dx) Start: 12-03-2021 End: 12-03-2021 Patient encounter procedure Roseanna Ross APRN.STENOGRAPHER SECRETARY Work Phone: Gastroenterology Comment on above: Family history of co nelia cancer in father (Primary Dx); Family history of colon cancer; Colon cancer screening; Dysphagia, unspecified type Procedures Date Procedure Procedure Detail Performing Clinician Start: 11-30-2024 X-ray of lumbar spine, two or three views Dr. Hector Currie MD Work Phone: Start: 10-10-2024 INFLUENZA A&B MOLECULAR (POC) Brandee Lundberg INDUSTRIAL REGISTERED NURSE.STENOGRAPHER SECRETARY Work Phone: Start: 05-09-2024 STREP A MOLECULAR (POC) Rosalinda CARR Work Phone: Start: 11-06-2023 COVID & INFLUENZA A/B & RSV NAAT, ROUTINE Anneliese Francisco INDUSTRIAL REGISTERED NURSE.STENOGRAPHER SECRETARY Work Phone: Start: 11-06-2023 Radiologic exam chest 2 views Anneliese mehta INDUSTRIAL REGISTERED NURSE.STENOGRAPHER SECRETARY Work Phone: Start: 02-13-2023 Radex ankle complete minimum 3 views Celso Smith INDUSTRIAL REGISTERED NURSE.STENOGRAPHER SECRETARY Work Phone: Start: 12-17-2022 Radex foot complete minimum 3 views Madelaine Mancuso PA-C Work Phone: Start: 09-16-2022 Plain chest X-ray Start: 05-13-2022 INFLUENZA VACCINE QUADRIVALENT 6 MO - 64 YRS IM Hector Currie MD Work Phone: Start: 05-01-2022 Radex foot complete minimum 3 views Francheska palmer Mary INDUSTRIAL REGISTERED NURSE.STENOGRAPHER SECRETARY Work Phone: Start: 04-23-2022 Radiologic exam chest 2 views Ligia M Hers hberger INDUSTRIAL REGISTERED NURSE.STENOGRAPHER SECRETARY Work Phone: Start: 03-05-2022 Colon ca scrn not hi rsk ind Roseanna Ross INDUSTRIAL REGISTERED NURSE.STENOGRAPHER SECRETARY Work Phone: Start: 03-05-2022 Esophagogastroduodenoscopy transoral diagnostic Roseanna Ross INDUSTRIAL REGISTERED NURSE.STENOGRAPHER SECRETARY Work Phone: Plan of Treatment Date Care Activity Detail Author Start: 12-17-2032 Urine microalbumin profile [facility] Start: 04-21-2026 Annual PCP Team Chronic Disease Visit Annual PCP Team Chronic Disease Visit [facility] Start: 04-21-2026 Diabetic foot examination Diabetic Foot Exam [facility] Start: 04-21-2026 Glaucoma screening Dilated Retinal Exam [facility] Start: 12-20-2025 BP Controlled (<130/80) BP Controlled (<130/80) [facility] in Start: 12-20-2025 Diabetic foot examination Diabetic Foot Exam [facility] Start: 12-20-2025 Hepatitis B surface antibody level LDL Cholesterol [facility] Start: 10-21-2025 Hemoglobin A1c measurement HbA1C [facility] Start: 08-16-2025 End: 08-16-2025 Patient encounter procedure 08/16/2025 3:00 PM EST Office Visit [facility] [address] [place] [id number] Hector Currie MD [address] [place] [id number] 4 month follow up [facility] Comment on above: 4 month follow up Start: 08-15-2025 Annual PCP Team Chronic Disease Visit Annual PCP Team Chronic Disease Visit [facility] Start: 08-15-2025 Anxiety Screening Anxiety Screening [facility] Start: 08-15-2025 BP Controlled (<130/80) BP Controlled (<130/80) [facility] Start: 08-15-2025 Hepatitis B screening Urine Albumin:Creatinine Ratio [facility] Start: 07-30-2025 Hepatitis B surface antibody level LDL Cholesterol [facility] Start: 06-21-2025 Hemoglobin A1c measurement HbA1C [facility] Start: 06-14-2025 Annual PCP Team Chronic Disease Visit Annual PCP Team Chronic Disease Visit [facility] Start: 06-14-2025 BP Controlled (<130/80) BP Controlled (<130/80) [facility] Start: 06-14-2025 Covid-19 Vaccine () Covid-19 Vaccine () [facility] Comment on above: Postponed from 04/24/2024 (Declined at t his time) Start: 05-09-2025 BP Controlled (<130/80) BP Controlled (<130/80) [facility] Start: 04-24-2025 Influenza vaccination Influenza Vaccine (#1) [facility] Start: 04-21-2025 End: 04-21-2025 Patient encounter procedure 04/21/2025 3:40 PM EDT Office Visit [facility] [address] [place], [place] [id number] Hector Currie MD [address] [place], [place] [id number] 4 month follow up [facility] Comment on above: 4 month follow up Start: 04-21-2025 End: 07-21-2025 Hemoglobin A1c in Blood [facility] Work Phone: Comment on above: Expected: 04/21/2025, Expires: Start: 04-05-2025 Annual PCP Team Chronic Disease Visit Annual PCP Team Chronic Disease Visit [facility] Start: 04-05-2025 BP Controlled (<130/80) BP Controlled (<130/80) [facility] Start: 03-26-2025 Hepatitis B surface antibody level LDL Cholesterol [facility] Start: 02-13-2025 Glaucoma screening Dilated Retinal Exam [facility] Comment on above: Postponed from 11/07/2023 (Declined at t his time) Start: 01-28-2025 Hemoglobin A1c measurement HbA1C [facility] Start: 12-20-2024 End: 12-20-2024 Patient encounter procedure [facility] Comment on above: 4 month follow up Start: 12-20-2024 End: 03-21-2025 LIPID PANEL, NONFASTING [facility] Work Phone: Comment on above: Expected: 12/20/2024, Expires: Start: 12-14-2024 Diabetic foot examination Diabetic Foot Exam [facility] Comment on above: Postponed from 2002 (Declined at t his time) Start: 11-30-2024 Annual PCP Team Chronic Disease Visit Annual PCP Team Chronic Disease Visit [facility] Start: 11-30-2024 BP Controlled (<130/80) BP Controlled (<130/80) [facility] Start: 11-22-2024 End: 02-21-2025 CBC panel - Blood by Automated count COMPLETE BLOOD COUNT Lab Routine Controlled type 2 diabetes mellitus without complication, without long-term current use of insulin (HCC) Primary hypertension Expected: 11/22/2024 (Approximate), Expires: 02/21/2025 [facility] Comment on above: Expected: 11/22/2024 (Approximate), Expi res: 02/21/2025 Start: 11-22-2024 End: 02-21-2025 Comprehensive metabolic 2000 panel - Serum or Plasma COMPREHENSIVE METABOLIC PANEL Lab Routine Controlled type 2 diabetes mellitus without complication, without long-term current use of insulin (HCC) Primary hypertension Expected: 11/22/2024 (Approximate), Expires: 02/21/2025 [facility] Comment on above: Expected: 11/22/2024 (Approximate), Expi res: 02/21/2025 Start: 11-22-2024 End: 02-21-2025 Hemoglobin A1c in Blood HEMOGLOBIN A1C Lab Routine Controlled type 2 diabetes mellitus without complication, without long-term current use of insulin (HCC) Expected: 11/22/2024 (Approximate), Expires: 02/21/2025 [facility] Comment on above: Expected: 11/22/2024 (Approximate), Expi res: 02/21/2025 Start: 11-22-2024 End: 02-21-2025 Lipid 1996 panel - Serum or Plasma LIPID PANEL BASIC Lab Routine Controlled type 2 diabetes mellitus without complication, without long-term current use of insulin (HCC) Primary hypertension Expected: 11/22/2024 (Approximate), Expires: 02/21/2025 [facility] Comment on above: Expected: 11/22/2024 (Approximate), Expi res: 02/21/2025 Start: 11-05-2024 BP Controlled (<130/80) BP Controlled (<130/80) [facility] Start: 09-26-2024 Hemoglobin A1c measurement HbA1C [facility] Start: 08-15-2024 End: 11-14-2024 Microalbumin/Creatinine [Mass Ratio] in Urine [facility] Work Phone: Comment on above: Expected: 08/15/2024, Expires: Start: 08-15-2024 End: 08-15-2024 Patient encounter procedure 08/15/2024 8:20 AM EST Office Visit [facility] [address] [place], [place] [id number] Hector Currie MD [address] [place], [place] [id number] 4 month follow up [facility] Comment on above: 4 month follow up Start: 07-27-2024 BP Controlled (<130/80) BP Controlled (<130/80) [facility] Start: 07-27-2024 Hepatitis B surface antibody level LDL Cholesterol [facility] Start: 07-13-2024 Annual PCP Team Chronic Disease Visit Annual PCP Team Chronic Disease Visit [facility] Start: 07-13-2024 BP Controlled (<130/80) BP Controlled (<130/80) [facility] Start: 07-13-2024 Covid-19 Vaccine () Covid-19 Vaccine () [facility] Comment on above: Postponed from 04/24/2023 (Declined at t his time) Start: 07-06-2024 End: 10-05-2024 CBC panel - Blood by Automated count COMPLETE BLOOD COUNT Lab Routine Controlled type 2 diabetes mellitus without complication, without long-term current use of insulin (HCC) Primary hypertension Expected: 07/06/2024 (Approximate), Expires: 10/05/2024 [facility] Comment on above: Expected: 07/06/2024 (Approximate), Expi res: 10/05/2024 Start: 07-06-2024 End: 10-05-2024 Comprehensive metabolic 2000 panel - Serum or Plasma COMPREHENSIVE METABOLIC PANEL Lab Routine Controlled type 2 diabetes mellitus without complication, without long-term current use of insulin (HCC) Primary hypertension Expected: 07/06/2024 (Approximate), Expires: 10/05/2024 [facility] Comment on above: Expected: 07/06/2024 (Approximate), Expi res: 10/05/2024 Start: 07-06-2024 End: 10-05-2024 Hemoglobin A1c in Blood HEMOGLOBIN A1C Lab Routine Controlled type 2 diabetes mellitus without complication, without long-term current use of insulin (HCC) Expected: 07/06/2024 (Approximate), Expires: 10/05/2024 [facility] Work Phone: Comment on above: Expected: 07/06/2024 (Approximate), Expi res: 10/05/2024 Start: 07-06-2024 End: 10-05-2024 Lipid 1996 panel - Serum or Plasma LIPID PANEL BASIC Lab Routine Controlled type 2 diabetes mellitus without complication, without long-term current use of insulin (HCC) Primary hypertension Expected: 07/06/2024 (Approximate), Expires: 10/05/2024 [facility] Comment on above: Expected: 07/06/2024 (Approximate), Expi res: 10/05/2024 Start: 07-06-2024 End: 10-05-2024 Microalbumin/Creatinine [Mass Ratio] in Urine ALBUMIN/CREATININE RATIO, URINE Lab Routine Controlled type 2 diabetes mellitus without complication, without long-term current use of insulin (HCC) Expected: 07/06/2024 (Approximate), Expires: 10/05/2024 [facility] Comment on above: Expected: 07/06/2024 (Approximate), Expi res: 10/05/2024 Start: 04-24-2024 Covid-19 Vaccine () Covid-19 Vaccine () [facility] Start: 04-24-2024 Covid-19 Vaccine () Covid-19 Vaccine () [facility] Start: 04-24-2024 Influenza vaccination Influenza Vaccine (#1) [facility] Start: 04-05-2024 End: 04-05-2024 Patient encounter procedure 04/05/2024 2:40 PM EDT Office Visit Internal Medicine [place] [address] [place], [place] [id number] Hector Currie MD [address], [place] [id number] 4 month follow up [facility] Comment on above: 4 month follow up Start: 03-26-2024 End: 06-25-2024 Ammonia [Moles/volume] in Plasma [facility] Comment on above: Expected: 03/26/2024, Expires: Start: 03-26-2024 End: 06-25-2024 CBC panel - Blood by Automated count [facility] Comment on above: Expected: 03/26/2024, Expires: 4 Start: 03-26-2024 End: 06-25-2024 Comprehensive metabolic 2000 panel - Serum or Plasma [facility] Work Phone: Comment on above: Expected: 03/26/2024, Expires: 4 Start: 03-26-2024 End: 06-25-2024 Hemoglobin A1c in Blood [facility] Comment on above: Expected: 03/26/2024, Expires: 4 Start: 03-26-2024 End: 06-25-2024 Lipid 1996 panel - Serum or Plasma [facility] Comment on above: Expected: 03/26/2024, Expires: Start: 03-26-2024 End: 06-25-2024 Prolactin [Mass/volume] in Serum or Plasma [facility] Comment on above: Expected: 03/26/2024, Expires: 4 Start: 03-26-2024 End: 06-25-2024 Valproate [Mass/volume] in Serum or Plasma [facility] Comment on above: Expected: 03/26/2024, Expires: 4 Start: 02-14-2024 BP CONTROLLED (<130/80) BP CONTROLLED (<130/80) [facility] Start: 01-26-2024 Hemoglobin A1c measurement HbA1C [facility] Start: 12-18-2023 BP CONTROLLED (<130/80) BP CONTROLLED (<130/80) [facility] Start: 12-01-2023 End: 03-01-2024 ALBUMIN/CREAT RATIO RND UR ALBUMIN/CREAT RATIO RND UR Lab Routine Controlled type 2 diabetes mellitus without complication, without long-term current use of insulin (HCC) Expected: 12/01/2023, Expires: 03/01/2024 [facility] Work Phone: Comment on above: Expected: 12/01/2023, Expires: 4 Start: 11-07-2023 Glaucoma screening Dilated Retinal Exam [facility] Start: 11-05-2023 ANNUAL PCP TEAM CHRONIC DISEASE VISIT ANNUAL PCP TEAM CHRONIC DISEASE VISIT [facility] Start: 09-17-2023 ANNUAL PCP TEAM CHRONIC DISEASE VISIT ANNUAL PCP TEAM CHRONIC DISEASE VISIT [facility] Start: 07-22-2023 COVID-19 VACCINE (4 - Booster for Pfizer series) COVID-19 VACCINE (4 - Booster for Pfizer series) [facility] Comment on above: Postponed from 11/04/2021 (Declined at t his time) Start: 07-22-2023 Covid-19 Vaccine (4 - Pfizer series) Covid-19 Vaccine (4 - Pfizer series) [facility] Comment on above: Postponed from 11/04/2021 (Declined at t his time) Start: 05-13-2023 ANNUAL PCP TEAM CHRONIC DISEASE VISIT ANNUAL PCP TEAM CHRONIC DISEASE VISIT [facility] Start: 05-13-2023 BP CONTROLLED (<130/80) BP CONTROLLED (<130/80) [facility] Start: 04-24-2023 [facility] Start: 04-23-2023 ANNUAL PCP TEAM CHRONIC DISEASE VISIT ANNUAL PCP TEAM CHRONIC DISEASE VISIT [facility] Start: 01-16-2023 End: 07-20-2023 CBC W Auto Differential panel - Blood CBC + DIFF Lab Routine Essential hypertension Gastroesophageal reflux disease, unspecified whether esophagitis present Expected: 01/16/2023 (Approximate), Expires: 07/20/2023 [facility] Work Phone: Comment on above: Expected: 01/16/2023 (Approximate), Expi res: 07/20/2023 Start: 01-16-2023 End: 07-20-2023 Comprehensive metabolic 2000 panel - Serum or Plasma COMP METABOLIC PANEL Lab Routine Essential hypertension Expected: 01/16/2023 (Approximate), Expires: 07/20/2023 [facility] Work Phone: Comment on above: Expected: 01/16/2023 (Approximate), Expi res: 07/20/2023 Start: 01-16-2023 End: 07-20-2023 Hemoglobin A1c in Blood HGB A1C Lab Routine IFG (impaired fasting glucose) Expected: 01/16/2023 (Approximate), Expires: 07/20/2023 [facility] Work Phone: Comment on above: Expected: 01/16/2023 (Approximate), Expi res: 07/20/2023 Start: 01-16-2023 End: 07-20-2023 Tdap vaccine 7 yrs/> im TDAP VACCINE AGE 7+ IM Immunization/Injection Routine Encounter for immunization Expected: 01/16/2023 (Approximate), Expires: 07/20/2023 [facility] Work Phone: Comment on above: Expected: 01/16/2023 (Approximate), Expi res: 07/20/2023 Start: 10-14-2022 ANNUAL PCP TEAM CHRONIC DISEASE VISIT ANNUAL PCP TEAM CHRONIC DISEASE VISIT [facility] Start: 08-25-2022 ONE PNEUMOVAX PRIOR TO AGE 65 ONE PNEUMOVAX PRIOR TO AGE 67 [facility] Comment on above: Postponed from 2011 (Declined at t his time) Start: 01-02-2023 PNEUMOCOCCAL (1 - PCV) PNEUMOCOCCAL (1 - PCV) [facility] Comment on above: Postponed from 1998 (Declined at t his time) Start: 07-23-2022 End: 09-22-2022 CBC panel - Blood by Automated count CBC Lab Routine Essential hypertension Encounter for long-term current use of medication Expected: 07/23/2022, Expires: 09/22/2022 [facility] Work Phone: Comment on above: Expected: 07/23/2022, Expires: 3 Start: 07-23-2022 End: 09-22-2022 Comprehensive metabolic 2000 panel - Serum or Plasma COMP METABOLIC PANEL Lab Routine Essential hypertension IFG (impaired fasting glucose) Encounter for long-term current use of medication Expected: 07/23/2022, Expires: 09/22/2022 [facility] Work Phone: Comment on above: Expected: 07/23/2022, Expires: 3 Start: 07-23-2022 End: 09-22-2022 Hemoglobin A1c in Blood HGB A1C Lab Routine IFG (impaired fasting glucose) Encounter for long-term current use of medication Expected: 07/23/2022, Expires: 09/22/2022 [facility] Work Phone: Comment on above: Expected: 07/23/2022, Expires: 3 Start: 07-23-2022 End: 09-22-2022 Lipid 1996 panel - Serum or Plasma LIPID PANEL BASIC Lab Routine Elevated LDL cholesterol level Encounter for long-term current use of medication Expected: 07/23/2022, Expires: 09/22/2022 [facility] Work Phone: Comment on above: Expected: 07/23/2022, Expires: 3 Start: 07-22-2022 End: 09-21-2022 Thyrotropin [Units/volume] in Serum or Plasma [facility] Work Phone: Comment on above: Expected: 07/22/2022, Expires: 3 Start: 07-14-2022 Urine microalbumin profile DTAP,TDAP,TD (7 - Td or Tdap) [facility] Start: 04-25-2022 End: 06-25-2022 Natriuretic peptide.B prohormone N-Terminal [Mass/volume] in Serum or Plasma [facility] Work Phone: Comment on above: Expected: 04/25/2022, Expires: 2 Start: 04-24-2022 Influenza vaccination INFLUENZA (#1) [facility] Start: 11-06-2021 BP CONTROLLED (<130/80) BP CONTROLLED (<130/80) [facility] Start: 11-04-2021 COVID-19 VACCINE (4 - Booster for Pfizer series) COVID-19 VACCINE (4 - Booster for Pfizer series) [facility] Start: 05-15-2021 ANNUAL PCP TEAM CHRONIC DISEASE VISIT ANNUAL PCP TEAM CHRONIC DISEASE VISIT [facility] Start: 07-07-2017 End: 07-07-2017 Radex spine lumbscrl compl w/bending views min 6 X-Ray, Spine, Lumbar, complete with bending views [facility] Work Phone: Start: 07-07-2017 End: 07-07-2017 Appointment Appointment [facility] Work Phone: Start: 04-24-2012 Medicare Annual Wellness Visit Medicare Annual Wellness Visit [facility] Start: 2010 Anxiety Screening Anxiety Screening [facility] Start: 2002 Diabetic foot examination Diabetic Foot Exam [facility] Start: 2002 Hepatitis B screening Urine Albumin:Creatinine Ratio [facility] Start: 1998 PNEUMOCOCCAL (1 - PCV) PNEUMOCOCCAL (1 - PCV) [facility] COVID & INFLUENZA A/ B & RSV PCR, ROUTINE COVID & INFLUENZA A/B & RSV PCR, ROUTINE Microbiology Routine Flu-like symptoms Acute upper respiratory infection, unspecified 10/10/2024 11:33 AM EST [facility] Work Phone: End: 04-29-2023 Echocardiography ECHO Cardiology Routine SOB (shortness of breath) on exertion 1 Occurrences starting 04/29/2022 until 04/29/2023 [facility] Work Phone: Comment on above: 1 Occurrences starting 04/29/2022 until 04/29/2023 End: 12-03-2022 EGD DIAGNOSTIC EGD DIAGNOSTIC Endoscopy Routine Dysphagia, unspecified type 1 Occurrences starting 12/03/2021 until 12/03/2022 [facility] Work Phone: Comment on above: 1 Occurrences starting 12/03/2021 until 12/03/2022 End: 07-20-2025 PAP TITRATION PSG (CPAP, BIPAP, ASV) PAP TITRATION PSG (CPAP, BIPAP, ASV) Procedures Routine DWIGHT (obstructive sleep apnea) 1 Occurrences starting 06/20/2024 until 07/20/2025 [facility] Comment on above: 1 Occurrences starting 06/20/2024 until 07/20/2025 Patient Education ED GERD (Adult) [facility] Work Phone: Patient referral [facility] Work Phone: End: 06-20-2025 Polysomnogram POLYSOMNOGRAM (PSG) Procedures Routine DWIGHT (obstructive sleep apnea) 1 Occurrences starting 06/20/2024 until 06/20/2025 [facility] Work Phone: Comment on above: 1 Occurrences starting 06/20/2024 until 06/20/2025 SARS-CoV-2 (COVID-19 ) RNA [Presence] in Respiratory specimen by EVELIN with probe detection 2019 CORONAVIRUS Microbiology Routine URI, acute Exposure to confirmed case of COVID-19 11/17/2022 6:03 PM EDT [facility] Work Phone: End: 12-03-2022 Screening colonoscopy COLONOSCOPY SCREENING Endoscopy Routine Family history of colon cancer Colon cancer screening Family history of colon cancer in father 1 Occurrences starting 12/03/2021 until 12/03/2022 [facility] Work Phone: Comment on above: 1 Occurrences starting 12/03/2021 until 12/03/2022 SURGICAL PATHOLOGY [facility] Work Phone: Comment on above: Release Upon Ordering for 1 Occurrences starting 03/05/2022, 1 [facility] Immunizations Immunization Date Immunization Notes Care Provider Piero trujillo 05-25-2024 influenza, seasonal, injectable, preservative free Liudmila Breaux INDUSTRIAL REGISTERED NURSE.STENOGRAPHER SECRETARY Work Phone: [facility] 05-25-2024 influenza virus vaccine, unspecified formulation Sarah Herrmann INDUSTRIAL REGISTERED NURSE.SALES SUPPORT REP Work Phone: [facility] 07-13-2023 influenza, injectabl e, quadrivalent, contains preservative Hector Currie MD Work Phone: [facility] 07-13-2023 influenza virus vaccine, unspecified formulation Aidee Dasilva Work Phone: [facility] 12-17-2022 tetanus toxoid, redu lacy diphtheria toxoid, and acellular pertussis vaccine, adsorbed Madelaine Bartolome RAMESH Work Phone: [facility] 11-04-2022 pneumococcal Conjuga te, unspecified formulation Hector Currie MD Work Phone: [facility] Work Phone: 11-04-2022 pneumococcal (PCV20) vaccine, 20 valent (PREVNAR 20) Sreekanth Ackerman MD Work Phone: [facility] 05-13-2022 influenza, injectabl e, quadrivalent, contains preservative Hector Currie MD Work Phone: [facility] 05-13-2022 influenza virus vaccine, unspecified formulation Sreekanth Ackerman MD Work Phone: [facility] 10-14-2021 influenza, injectabl e, quadrivalent, preservative free Roseanna Ross INDUSTRIAL REGISTERED NURSE.STENOGRAPHER SECRETARY Work Phone: [facility] Work Phone: 09-09-2021 COVID-19 original vaccine, age 12+ yr, monovalent ([employer]) Hector Currie MD Work Phone: [facility] 11-25-2020 COVID-19 vaccine, ag e 12+ yr ([facility] - [facility]) Roseanna Ross INDUSTRIAL REGISTERED NURSE.STENOGRAPHER SECRETARY Work Phone: [facility] Work Phone: 11-03-2020 COVID-19 vaccine, ag e 12+ yr ([facility] - [facility]) Roseanna Ross INDUSTRIAL REGISTERED NURSE.STENOGRAPHER SECRETARY Work Phone: [facility] Work Phone: 06-22-2018 influenza, injectabl e, quadrivalent, contains preservative Roseanna Ross INDUSTRIAL REGISTERED NURSE.STENOGRAPHER SECRETARY Work Phone: [facility] Work Phone: 10-06-2017 influenza, injectabl e, quadrivalent, contains preservative Roseanna Ross INDUSTRIAL REGISTERED NURSE.[facility] Work Phone: [facility] 09-17-2016 influenza, injectabl e, quadrivalent, preservative free Roseanna Ross INDUSTRIAL REGISTERED NURSE.[facility] Work Phone: [facility] 06-14-2015 influenza, injectabl e, quadrivalent, contains preservative Roseanna Ross INDUSTRIAL REGISTERED NURSE.STENOGRAPHER SECRETARY Work Phone: [facility] 07-12-2014 influenza, seasonal, injectable Roseanna Ross INDUSTRIAL REGISTERED NURSE.STENOGRAPHER SECRETARY Work Phone: [facility] 05-19-2013 influenza virus vaccine, unspecified formulation Roseanna Ross INDUSTRIAL REGISTERED NURSE.STENOGRAPHER SECRETARY Work Phone: [facility] 01-12-2013 human papilloma viru s vaccine, quadrivalent Roseanna Ross INDUSTRIAL REGISTERED NURSE.STENOGRAPHER SECRETARY Work Phone: [facility] 09-14-2012 human papilloma viru s vaccine, quadrivalent Roseanna Ross INDUSTRIAL REGISTERED NURSE.STENOGRAPHER SECRETARY Work Phone: [facility] 07-14-2012 hepatitis A vaccine, unspecified formulation Roseanna Ross INDUSTRIAL REGISTERED NURSE.STENOGRAPHER SECRETARY Work Phone: [facility] Work Phone: 07-14-2012 human papilloma viru s vaccine, quadrivalent Roseanna Ross INDUSTRIAL REGISTERED NURSE.STENOGRAPHER SECRETARY Work Phone: [facility] Work Phone: 07-14-2012 Meningococcal, MCV4, unspecified conjugate formulation(groups A, C, Y and W-135) Roseanna Ross INDUSTRIAL REGISTERED NURSE.STENOGRAPHER SECRETARY Work Phone: [facility] Work Phone: 07-14-2012 tetanus toxoid, redu lacy diphtheria toxoid, and acellular pertussis vaccine, adsorbed Roseanna Ross INDUSTRIAL REGISTERED NURSE.[facility] Work Phone: [facility] Work Phone: 06-12-2012 influenza virus vaccine, unspecified formulation Roseanna Ross INDUSTRIAL REGISTERED NURSE.[facility] Work Phone: [facility] Work Phone: 06-27-2011 influenza virus vaccine, unspecified formulation Roseanna Ross INDUSTRIAL REGISTERED NURSE.[facility] Work Phone: [facility] 06-20-2010 influenza virus vaccine, unspecified formulation Roseanna Ross INDUSTRIAL REGISTERED NURSE.[facility] Work Phone: [facility] Work Phone: 06-27-2009 novel [id number], preservative-free, injectable Roseanna Ross INDUSTRIAL REGISTERED NURSE.[facility] Work Phone: [facility] Work Phone: 05-30-2009 influenza virus vaccine, unspecified formulation Roseanna Ross INDUSTRIAL REGISTERED NURSE.[facility] Work Phone: [facility] Work Phone: 08-21-2008 hepatitis A vaccine, unspecified formulation Roseanna Ross INDUSTRIAL REGISTERED NURSE.STENOGRAPHER SECRETARY Work Phone: [facility] 06-28-2008 influenza virus vaccine, unspecified formulation Roseanna Ross INDUSTRIAL REGISTERED NURSE.STENOGRAPHER SECRETARY Work Phone: [facility] Work Phone: 07-03-2007 influenza virus vaccine, unspecified formulation Roseanna Ross INDUSTRIAL REGISTERED NURSE.STENOGRAPHER SECRETARY Work Phone: [facility] Work Phone: 05-19-2005 Meningococcal, MCV4, unspecified conjugate formulation(groups A, C, Y and W-135) Roseanna Ross INDUSTRIAL REGISTERED NURSE.STENOGRAPHER SECRETARY Work Phone: [facility] Work Phone: 03-07-2005 tetanus and diphther ia toxoids, adsorbed, preservative free, for adult use (2 Lf of tetanus toxoid and 2 Lf of diphtheria toxoid) Roseanna Ross INDUSTRIAL REGISTERED NURSE.STENOGRAPHER SECRETARY Work Phone: [facility] Work Phone: 04-13-1998 diphtheria, tetanus toxoids and pertussis vaccine Roseanna Ross INDUSTRIAL REGISTERED NURSE.[facility] Work Phone: [facility] Work Phone: 04-13-1998 measles, mumps and rubella virus vaccine Roseanna Ross INDUSTRIAL REGISTERED NURSE.[facility] Work Phone: [facility] Work Phone: 04-13-1998 trivalent poliovirus vaccine, live, oral Roseanna Ross INDUSTRIAL REGISTERED NURSE.[facility] Work Phone: [facility] Work Phone: 1994 Chicken Pox (disease) Roseanna little INDUSTRIAL REGISTERED NURSE.STENOGRAPHER SECRETARY Work Phone: [facility] Work Phone: 11-07-1993 diphtheria, tetanus toxoids and pertussis vaccine Roseanna Ross INDUSTRIAL REGISTERED NURSE.[facility] Work Phone: [facility] Work Phone: 11-07-1993 trivalent poliovirus vaccine, live, oral Roseanna Ross INDUSTRIAL REGISTERED NURSE.STENOGRAPHER SECRETARY Work Phone: [facility] Work Phone: 09-12-1993 haemophilus influenz ae type b vaccine, HbOC conjugate Roseanna Ross INDUSTRIAL REGISTERED NURSE.STENOGRAPHER SECRETARY Work Phone: [facility] Work Phone: 09-12-1993 measles, mumps and rubella virus vaccine Roseanna Ross INDUSTRIAL REGISTERED NURSE.STENOGRAPHER SECRETARY Work Phone: [facility] Work Phone: 02-21-1993 hepatitis B vaccine, pediatric or pediatric/adolescent dosage Roseanna Ross INDUSTRIAL REGISTERED NURSE.STENOGRAPHER SECRETARY Work Phone: [facility] Work Phone: 1992 diphtheria, tetanus toxoids and pertussis vaccine Roseanna Ross INDUSTRIAL REGISTERED NURSE.STENOGRAPHER SECRETARY Work Phone: [facility] Work Phone: 1992 haemophilus influenz ae type b vaccine, HbOC conjugate Roseanna Ross INDUSTRIAL REGISTERED NURSE.[facility] Work Phone: [facility] Work Phone: 1992 diphtheria, tetanus toxoids and pertussis vaccine Roseanna Ross INDUSTRIAL REGISTERED NURSE.[facility] Work Phone: [facility] Work Phone: 1992 haemophilus influenz ae type b vaccine, HbOC conjugate Roseanna Ross INDUSTRIAL REGISTERED NURSE.[facility] Work Phone: [facility] Work Phone: 1992 hepatitis B vaccine, pediatric or pediatric/adolescent dosage Roseanna Ross INDUSTRIAL REGISTERED NURSE.[facility] Work Phone: [facility] Work Phone: 1992 trivalent poliovirus vaccine, live, oral Roseanna Ross INDUSTRIAL REGISTERED NURSE.[facility] Work Phone: [facility] Work Phone: 1992 hepatitis B vaccine, pediatric or pediatric/adolescent dosage Roseanna Ross INDUSTRIAL REGISTERED NURSE.[facility] Work Phone: [facility] Work Phone: 1992 diphtheria, tetanus toxoids and pertussis vaccine Roseanna Ross INDUSTRIAL REGISTERED NURSE.STENOGRAPHER SECRETARY Work Phone: [facility] Work Phone: 1992 haemophilus influenz ae type b vaccine, HbOC conjugate Roseanna Ross INDUSTRIAL REGISTERED NURSE.STENOGRAPHER SECRETARY Work Phone: [facility] Work Phone: 1992 trivalent poliovirus vaccine, live, oral Roseanna Ross INDUSTRIAL REGISTERED NURSE.[facility] Work Phone: [facility] Work Phone: Payers Date Payer Category Payer Self-pay [id number] 2021 Medicaid [id number] 2016 Medicaid [id number] 2012 Medicaid [id number] 2012 Medicare MEDICARE MEDICAR E A AND B [id number] 2012-Present [phone] [place] [address] Medicare [id number] 2012 Medicare [id number] 2012 Medicare [id number] Unknown [id number] Unknown [id number] Unknown [id number] Unknown [id number] Unknown [id number] Social History Date Type Detail Facility Start: 08-11-2016 End: 05-13-2022 Tobacco smoking status NHIS Never smoked tobacco [facility] Work Phone: Start: 12-03-2021 Alcohol intake Current non-drinker of alcohol (finding) [facility] Start: 1990 Sex Assigned At Male [facility] Start: 11-23-2021 End: 07-22-2022 Exposure to SARS-CoV-2 (event) Not sure [facility] Work Phone: Start: 02-05-2022 End: 04-21-2025 Alcohol intake Lifetime non-drinker (finding) [facility] Start: 02-05-2022 History SDOH Alcohol Frequency 1 [facility] Start: 08-11-2016 End: 05-13-2022 Tobacco use and exposure Smokeless tobacco non-user [facility] Work Phone: Start: 07-11-2021 End: 09-16-2022 Tobacco smoking status NHIS Unknown if ever smoked [facility] Start: 12-26-2022 End: 05-23-2023 History of Social function [facility] Start: 12-26-2022 End: 05-23-2023 Tobacco use panel [facility] Start: 07-25-2012 Adult Depression Screening Assessment 0 [facility] Start: 10-13-2021 Gender identity Identifies as male gender (finding) [facility] Start: 10-13-2021 Sexual orientation Heterosexual (finding) [facility] Has the [employer], [employer] or [employer] threatened to shut off services in your home in past 12Mo No [facility] Do you belong to any clubs or organizations such as amish groups, unions, fraternal or athletic groups, or school groups? Yes [facility] Are you now , , , , never or living with a partner? Never [facility] How often to you hav e a drink containing alcohol? Never [facility] How hard is it for y ou to pay for the very basics like food, housing, medical care, and heating Not very hard [facility] Do you feel stress - tense, restless, nervous, or anxious, or unable to sleep at night because your mind is troubled all the time - these days [OSQ] Only a little [facility] (I/We) worried anoop er (my/our) food would run out before (I/we) got money to buy more. Never true [facility] Start: 12-07-2024 Sex Male (finding) [facility] Functional Status Date Assessment Result Facility 12-15-2014 Are you deaf, or do you have serious difficulty hearing No 12/15/2014 1:02 PM EDT Milena Quintero Ma No [facility] 12-15-2014 Are you blind, or do you have serious difficulty seeing, even when wearing glasses No 12/15/2014 1:02 PM EDT Milena Quintero Ma No [facility] 12-15-2014 Do you have serious difficulty walking or climbing stairs No 12/15/2014 1:02 PM EDT Milena Quintero Ma No [facility] 12-15-2014 Do you have difficul ty dressing or bathing No 12/15/2014 1:02 PM EDT Milena Quintero Ma No [facility] 12-15-2014 Because of a physica l, mental, or emotional condition, do you have difficulty doing errands alone such as visiting a physician's office or shopping No 12/15/2014 1:02 PM EDT Milena Quintero Ma No [facility] Mental Status Date Assessment Result Facility 09-16-2022 Cognitive function Voice/Name [facility] Work Phone: 12-15-2014 Because of a physica l, mental, or emotional condition, do you have serious difficulty concentrating, remembering, or making decisions Yes 12/15/2014 1:02 PM EDT Milena Quintero Ma Yes [facility] Clinical Notes 09-27-2010 to 05-05-2025 Telephone Encounter - Piotr Lindsey RN - 05/05/2025 5:04 PM EDTTelephone Encounter - Piotr Lindsey RN - 05/05/2025 5:04 PM EDTPatient InstructionsPatient InstructionsPatient Instructions Note Date & Type Note Facility 05-05-2025 Telephone encounter Note Mother (Lanie) calls to report that [facility] received Sleep Study results but not order for C-Pap or OV notes. Faxed to [phone] per request. Piotr Lindsey RN [facility] 05-05-2025 Miscellaneous Notes Mother (Lanie) calls to report that [facility] received Sleep Study results but not order for C-Pap or OV notes. Faxed to [phone] per request. Piotr Lindsey RN documented in this encounter [facility] 04-21-2025 Instructions Sarah Herrmann APRN.DOLORES - 04/21/2025 4:07 PM EDT - Continue taking Trulicity as prescribed; your refill has been sent to [facility]. - Begin low-dose rosuvastatin once nightly [...] overall health maintenance. documented in this encounter [facility] 04-21-2025 History of Presen t illness [...] abdominal pain. - Recent eye exam at [facility] on [address] showed minimal changes. - Last A1c [...] sleep study was completed May 2024 at [facility]. BiPAP was recommended. Orders were sent. DME is [facility]. Diabetes: - Managed with Trulicity injections, which [...] from Trulicity. - Recent eye exam at [facility] on [address] showed no significant changes. [...] July visit to Medicare wellness. Sarah Herrmann APRN.SALES SUPPORT REP Medical Decision Making: Problems: Moderate: 2+ stable chronic illnesses Data: Unique test result(s) reviewed: 3+ Unique test(s) ordered: 1 Risk: Moderate: Drug management Medical Decision Making Level: 4 - Moderate documented in this encounter [facility] 04-21-2025 Note HNO ID: [id number] Author: SARAH HERRMANN APRN.SALES SUPPORT REP Service: ? Author Type: Nurse Specialist Type: [...] abdominal pain. - Recent eye exam at [facility] on [address] showed minimal changes. - Last A1c [...] sleep study was completed May 2024 at [facility]. BiPAP was recommended. Orders were sent. [...] from Trulicity. - Recent eye exam at [facility] on [address] (more content not included)... [facility] 02-07-2025 Telephone encounter Note Prescription Refill [...] Rita Guzman February 07, 2025 9:03 AM [facility] 02-07-2025 Miscellaneous Notes Prescription Refill Information [...] 2025 9:03 AM documented in this encounter [facility] 12-22-2024 Progress note Formatting of t his note might be different from the original. Recent labwork was in acceptable range overall, increased triglycerides non-fasting. [facility] 12-22-2024 Miscellaneous Notes Recent labwork was in acceptable range overall, increased triglycerides non-fasting. documented in this encounter [facility] 12-20-2024 Note HNO ID: [id number] Author: SARAH HERRMANN APRN.CNS Service: ? Author [...] therapy; patient reports effective management. Sarah Herrmann, INDUSTRIAL REGISTERED NURSE.SALES SUPPORT REP Medical Decision Making: Problems: Moderate: 2+ stable chronic illnesses and 1+ chronic illnesses with change Risk: Moderate: Drug management Medical Decision Making Level: 4 - Moderate [facility] 12-20-2024 History of Presen t illness [...] 4 - Moderate documented in this encounter [facility] 12-01-2024 Radiology Diagnostic study note [facility] [address] [place] [address] [id number] Lumbar Spine 2 or 3 Views MR#: [id number] Acct: [id number] Name: NIKO BROOKE Rep #: [id number] : 1990 M 34 From: Corina Giraldo MD PCP: Dr. Hector Currie MD Status: RE G CLI Study:Lumbar Spine 2 or 3 Views Date of Exam: 11/30/24 Exam# [id number] Ordering Dr: Isha Mary MD PROCEDURE: LUMBAR [...] levocurvature of the lumbar spine. Reading Location: [facility] CC: Dr. Rachid Mary MD; Dr. Hector Currie MD ~ [place]: Signed [facility] 11-14-2024 Telephone encounter Note Prescription Refill [...] Teena Buckner November 14, 2024 2:58 PM [facility] 11-14-2024 Miscellaneous Notes Prescription Refill Information [...] 2024 2:58 PM documented in this encounter [facility] 10-10-2024 Note SARS-COV-2 (AGENT OF COVID-19) RNA: Not detected INFLUENZA A RNA: Detected INFLUENZA B RNA: Not detected RESPIRATORY SYNCYTIAL VIRUS (RSV) RNA: Not detected [facility] Comment on above: Performed By: #### 9 [id number] ####[facility] LABCLIA [id number] [address] OF [facility] 10-10-2024 Instructions Brandee Mcmanus APRN.RADHA - 10/10/2024 11:29 AM EST ASSESSMENT/PLAN: 1. [...] A (POCT) 10/10/2024 Positive (A) Negative Final Location:[address], [facility] Procedural Control 10/10/2024 Valid Final You have [...] Discussed expected course of illness Brandee Mcmanus APRN.STENOGRAPHER SECRETARY [facility] PATIENT INFO INFLUENZA INTRODUCTION Influenza (commonly called the flu) is a highly contagious illness that can occur in children or adults of any age. It occurs more often in the winter months because people spend more time in close contact with one another. The flu is spread easily from [id number] by coughing, sneezing, or touching surfaces. Every [...] do not become dehydrated. One way to housing court judge if you are drinking enough is [...] of antibiotic resistance. documented in this encounter [facility] 10-10-2024 Note HNO ID: [id number] Author: BRANDEE MCMANUS APRN.STENOGRAPHER SECRETARY Service: ? Author Type: Nurse Practitioner Type: [...] Acute upper r (more content not included)... [facility] 10-10-2024 History of Presen t illness Narrative Subjective Nasal Congestion Associated symptoms include congestion, coughing and shortness of breath. Pertinent negatives include no chills, headaches or sore throat. Niok Brooke is a 34 year old male [...] A (POCT) 10/10/2024 Positive (A) Negative Final Location:[facility], [address] [place] [address], [place], [address] Procedural Control 10/10/2024 Valid Final You have [...] Discussed expected course of illness Brandee Mcmanus APRN.RADHA documented in this encounter [facility] 08-18-2024 Telephone encounter Note The following [...] a day. Authorizing Provider: HECTOR CURRIE MD [facility] 08-18-2024 Miscellaneous Notes The following approved [...] calling and states patient will be using [facility] now and requesting all of pt's medication be transferred there. Pended. No call back needed if agreeable to send. Lianne Caldwell RN documented in this encounter [facility] 08-18-2024 Telephone encounter Note Patient's mother calls asking about the status of this request. Patient is needing medications to be sent to pharmacy. Barbara Posada RN [facility] 08-15-2024 Telephone encounter Note Patient's mother Lanie, calling and states patient will be using [facility] now and requesting all of pt's medication be transferred there. Pended. No call back needed if agreeable to send. Lianne Caldwell RN [facility] 08-15-2024 Instructions Hector Currie MD - [...] results to us. documented in this encounter [facility] 08-15-2024 Note HNO ID: [id number] Author: HECTOR CURRIE MD Service: ? Author Type: Physician Type: Progress Notes Filed: 09/12/2024 18:14 Note Text: This note was created using [employer]. Subjective Niko Brooke is a 34 year [...] Height as of 02/05/22: 188 cm (6' 2). Weight as of this encounter: 162 kg [...] Breath sounds: Cris (more content not included)... [facility] 08-15-2024 History of Presen t illness Narrative This note was created using [employer]. Subjective Niko Brooke is a 34 year [...] Height as of 02/05/22: 188 cm (6' 2). Weight as of this encounter: 162 kg [...] adult, unspecified whether serious comorbidity present ([facility]) (E66.813) - Weight is trending [...] Hector Currie MD documented in this encounter [facility] 08-09-2024 Telephone encounter Note Patient has [...] Please advise. Thank you. Madina Webber LPN.' [facility] 08-09-2024 Miscellaneous Notes Patient has been [...] Madina Webber LPN.' documented in this encounter [facility] 07-29-2024 Telephone encounter Note Patient MyChart message requesting the following refill Refill(s) Requested: Requested Prescriptions Pending Prescriptions Disp Refills triamcinolone (KENALOG) 0.025 % cream 30 g 3 Sig: Apply 1 application to affected area two times a day. Up to 14 days per rash ALLERGIES Allergen Reactions Seasonal Allergies Unknown (home) [phone] (cell) Last Office Visit Date: 06/14/2024 Last [facility] Visit: Visit date not found Future Appointment: 08/15/2024 The patients preferred pharmacy has been captured for this encounter? yes Request is for script(s) to be escript to pharmacy. Teresa Menendez LPN [facility] 07-29-2024 Miscellaneous Notes Patient MyChart message requesting the following refill Refill(s) Requested: Requested Prescriptions Pending Prescriptions Disp Refills triamcinolone (KENALOG) 0.025 % cream 30 g 3 Sig: Apply 1 application to affected area two times a day. Up to 14 days per rash ALLERGIES Allergen Reactions Seasonal Allergies Unknown (home) [phone] (cell) Last Office Visit Date: 06/14/2024 Last [facility] Visit: Visit date not found Future Appointment: 08/15/2024 The patients preferred pharmacy has been captured for this encounter? yes Request is for script(s) to be escript to pharmacy. Treesa Menendez LPN documented in this encounter [facility] 07-29-2024 Telephone encounter Note Pt coming [...] Sommer LPN July 29, 2024 12:36 PM [facility] 07-29-2024 Miscellaneous Notes Pt coming in [...] 2024 12:36 PM documented in this encounter [facility] 07-13-2024 Telephone encounter Note Prescription Refill [...] Hein LPN July 13, 2024 8:31 AM [facility] 07-13-2024 Miscellaneous Notes Prescription Refill Information [...] 2024 8:31 AM documented in this encounter [facility] 07-04-2024 Telephone encounter Note Orders faxed and mother Lanie, aware of same. [facility] 07-04-2024 Miscellaneous Notes Orders faxed and mother Lanie, aware of same. New orders placed, please send updated orders and updated sleep study results. Thanks. Patient had sleep study completed 06/29/24. Results on Liudmila's desk for review. Fax order for CPAP to [facility]. documented in this encounter [facility] 07-04-2024 Telephone encounter Note New orders placed, please send updated orders and updated sleep study results. Thanks. [facility] 07-04-2024 Telephone encounter Note Patient had sleep study completed 06/29/24. Results on Liudmila's desk for review. Fax order for CPAP to [facility]. [facility] 06-20-2024 Telephone encounter Note Order has been faxed and mother aware of same. [facility] 06-20-2024 Miscellaneous Notes Order has been faxed and mother aware of same. Patient mother Lanie returned call and went over notes below from Liudmila breaux SHAKER OPERATOR with understanding. Mother is asking to have orders faxed to [facility] Sleep [facility] please. Left message for return call. Order placed, prior sleep study done at [facility], please clarify that they would like [...] note from [facility]. Thanks. Fax received from [employer] [place] stating the order for the BIPAP has been declined. Mentioning that patient needs a new in lab sleep study and new initial consult notes due to being noncompliant with BIPAP earlier this year. documented in this encounter [facility] 06-20-2024 Telephone encounter Note Patient mother Lanie returned call and went over notes below from Liudmila breaux SHAKER OPERATOR with understanding. Mother is asking to have orders faxed to [facility] Sleep [facility] please. [facility] 06-20-2024 Telephone encounter Note Left message for return call. [facility] 06-20-2024 Telephone encounter Note Order placed, prior sleep study done at [facility], please clarify that they would like orders sent there for the repeat study and send both the sleep study and titration study orders to see if a split study can be done. Thanks [facility] 06-20-2024 Telephone encounter Note Patient's mother calls back and notified of below. Mother voices understanding. Mother states that patient is willing to do another sleep study. Please place these orders. Barbara Posada RN [facility] 06-17-2024 Telephone encounter Note Left message for return call. [facility] 06-17-2024 Telephone encounter Note Can we please check with patient and his mom to see if willing to do another study. Please let them know the note from [facility]. Thanks. [facility] 06-17-2024 Telephone encounter Note Fax received from [employer] stating the order for the BIPAP has been declined. Mentioning that patient needs a new in lab sleep study and new initial consult notes due to being noncompliant with BIPAP earlier this year. [facility] 06-14-2024 History of Presen t illness [...] issues so machine was taken back by [employer]. Ready to use this more. Last sleep [...] Diabetes Mellitus Type 2, Controlled, Without Complications ([facility]) - 09/28/2023 Gerd (Gastroesophageal Reflux Disease) - 02/05/2022 Prediabetes - 02/05/2022 Family History of Colon Cancer - 02/05/2022 Colon Cancer Screening - 02/05/2022 Primary Hypertension - 05/15/2020 S/P Lumbar Laminectomy - 09/24/2019 Comment: Dr. 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 - PAP THERAPY ORDER - CPAP/BIPAP/OTHER 2. [...] appointment.. INGA Romero documented in this encounter [facility] 05-09-2024 History of Presen t illness Narrative Images from the original note were not included. This note was created using SoftLayer. Subjective Niko Brooke is a 33 year [...] Obesity 12/15/2014 S/P lumbar laminectomy 09/2019 Dr. Ehrler Spinal stenosis of lumbar region with neurogenic [...] evaluation. BRUNO Vargas documented in this encounter [facility] 04-05-2024 Instructions Hector Currie MD - [...] the cholesterol test. documented in this encounter [facility] 04-05-2024 History of Presen t illness Narrative This note was created using Cycleter. Subjective Niko Brooke is a 33 year [...] Height as of 02/05/22: 188 cm (6' 2). Weight as of this encounter: 161.5 kg [...] Abs Lymph 1.00 - 4.00 k/uL 2.55 Cochran% % 5.7 Abs Cochran <0.87 k/uL 0.48 Eosin% % 1.5 Abs [...] without long-term current use of insulin ([facility]) E11.9 dulaglutide (TRULICITY) 3 mg/0.5 [...] without long-term current use of insulin ([facility]) E11.9 dulaglutide (TRULICITY) 3 mg/0.5 mL pen injector dulaglutide (TRULICITY) 1.5 mg/0.5 mL pen injector HEMOGLOBIN A1C COMPREHENSIVE METABOLIC PANEL LIPID PANEL BASIC COMPLETE BLOOD COUNT ALBUMIN/CREATININE RATIO, URINE 2. Class 3 severe obesity without serious comorbidity with body mass index (BMI) of 45.0 to 49.9 in adult, unspecified obesity type ([facility]) E66.01 dulaglutide (TRULICITY) 3 mg/0.5 [...] Hector Currie MD documented in this encounter [facility] 12-01-2023 History of Presen t illness Narrative This note was created using [employer]. Subjective Niko Brooke is a 33 year [...] Height as of 02/05/22: 188 cm (6' 2). Weight as of this encounter: 162.8 kg [...] Abs Lymph 1.00 - 4.00 k/uL 2.55 Cochran% % 5.7 Abs Cochran <0.87 k/uL 0.48 Eosin% % 1.5 Abs [...] Hector Currie MD documented in this encounter [facility] 11-06-2023 History of Presen t illness [...] history is provided by the patient. No cloth worker was used. Flu Like Symptoms This is [...] Bones and soft tissues: Unremarkable. Anneliese Francisco APRN.RADHA documented in this encounter [facility] 10-12-2023 Miscellaneous Notes Patient's mother Dea called in regarding the trulicity. She says the patient is diabetic. Patient still has not received trulicity documented in this encounter [facility] 09-28-2023 History of Presen t illness Narrative BMI Obesity Medicine FollowUp Note [facility] Visit September 28, 2023 I have communicated my name and active licensure. The patient's identity and physical location were verified at the time of this visit. Either the patient or their legal security representative has been informed of the risks and benefits of -- and alternatives to -- treatment through a remote evaluation and consents to proceed with the evaluation remotely. Patient Summary: Niko Brooke is 33 year old Male who presents virtually for follow-up evaluation of his obesity and related complications to the [facility]ariatric [facility] Metabolic [facility]. In our previous visits we have outlined [...] which included preparing to see the patient, [id number] patient care, completing clinical documentation, obtaining and/or reviewing separately obtained history, performing a medically appropriate examination, counseling and educating the patient/family/caregiver, and ordering medications, tests, or procedures. Carmelita Thomas APRN.STENOGRAPHER SECRETARY Initial Program Weight 379 lbs Weight Graph [...] No, and Pulmonary: DWIGHT History reviewed in [facility] Allergies: Seasonal Allergies Other: See Comments [...] which included preparing to see the patient, [id number] patient care, completing clinical documentation, obtaining and/or reviewing separately obtained history, performing a medically appropriate examination, counseling and educating the patient/family/caregiver, and ordering medications, tests, or procedures. Some documentation from previous visit of 12/26/2022 was copied and pasted, documentation has been reviewed and edited as necessary for today's visit. Carmelita Thomas APRN.CNP documented in this encounter [facility] 09-25-2023 Miscellaneous Notes Patient's mother notified, [...] mother. Antoinette Sommer LPN noted Matt reviewed [employer] PAP program. Program website notes that company [...] NIKO BROOKE (Alvarez: BDGQTQNP) PA Rx #: [id number] Outcome Denied today Your request has been denied Drug Trulicity 3MG/0.5ML pen-injectors [facility] cloud logo Form [employer] Electronic Prior Authorization Request Form (2017 WAPDP) Original Claim Info [id number]: Patient appeal noticerequired by [facility].[id number]: Will wait for fax to see what is formulary Cover[employer]ymed PA completed for trulicity. NIKO BROOKE (Alvaerz: BDGQTQNP) - [id number] Trulicity 3MG/0.5ML pen-injectors Status: PA Request Created: September 16, 2023 [id number] Sent: September 16, 2023 documented in this encounter [facility] 07-15-2023 Miscellaneous Notes OV note, new RX for PAP, insurance information and face sheet faxed to [facility]. Mindy Palencia LPN Printed APAP Rx and completed note with explanation Spoke with [facility] staff concerning what patient need to resume PAP machine. Last OV note needing to have the reason why the patient was n on-compliant with last PAP, in OV notes. New RX with PAP settings. No new studies needing to be performed. Mindy Palencia LPN documented in this encounter [facility] 05-23-2023 History of Presen t illness [...] Sreekanth Ackerman MD documented in this encounter [facility] 02-13-2023 History of Presen t illness [...] planus. Dictated by : MD Celso FRANKLIN APRN.STENOGRAPHER SECRETARY documented in this encounter [facility] 02-13-2023 History of Presen t illness [...] 2023 4:50 PM documented in this encounter [facility] 12-30-2022 Miscellaneous Notes Lanie/mother notified, forms are in Med Recs for her to pickup. Madina Webber LPN TC to patient's mother. Line rings busy. Will try again at a later time. 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 Form was completed by mother. I did [...] Mindy Palencia LPN documented in this encounter [facility] 12-26-2022 History of Presen t illness Narrative BMI Obesity Medicine FollowUp Note [facility] Visit December 26, 2022 Virtual Visit (Audio/Visual)I have discussed the nature of this visit with the patient which will occur via [facility] (Phone, Virtual Visit) and he agrees to proceed with this interaction. I have communicated my name and active licensure. The patient's identity and physical location were verified at the time of this visit. Either the patient or their legal security representative has been informed of the risks and benefits of -- and alternatives to -- treatment through a remote evaluation and consents to proceed with the evaluation remotely. - Done, at home. Patient Summary: Niko Brooke is 32 year old Male who presents virtually for follow-up evaluation of his obesity and related complications to the [facility] Bariatric and Metabolic [facility]. In our previous visits we have outlined [...] intervention is the best and most appropriate chcf therapeutic option. -- We discussed several strategies to track food intake and increase mindfulness around eating. He was counseled on Food records and snack replacements and adding more fruits/vegetables. Also recommended establishing with bariatric marble setter helper. -- Encouraged the patient to improve his [...] mom and pt. Provided drug information via RawFlow message and recommended watching the How to use pen video. Start Dulaglutide (Trulicity) 0.75 mg weekly [...] fruit. To schedule with bariatric nutrition call [phone]. Also schedule 2 month follow up with me. Activity: Create a habit of physical activity 3 days per week. Consider chair exercise on YouTube. Sleep: Continue using using CPAP. I spent a total of 47 minutes on the date of the service which included preparing to see the patient, ftth-zl-dgfe patient care, completing clinical documentation, obtaining and/or reviewing separately obtained history, performing a medically appropriate examination, counseling and educating the patient/family/caregiver, and ordering medications, tests, or procedures. Carmelita Thomas APRN.STENOGRAPHER SECRETARY Weight Graph; (please see graph scanned in chart or [facility] synopsis below) Interval History: He specifies the [...] which included preparing to see the patient, ihlz-ij-ltvy patient care, completing clinical documentation, obtaining and/or reviewing separately obtained history, performing a medically appropriate examination, counseling and educating the patient/family/caregiver, and ordering medications, tests, or procedures. Carmelita Thomas APRN.STENOGRAPHER SECRETARY documented in this encounter [facility] 12-17-2022 History of Presen t illness [...] injection (DEFINITY) INTRAVENOUS DIRECTED PRN Ligia Older, INDUSTRIAL REGISTERED NURSE.STENOGRAPHER SECRETARY sodium chloride 0.9 % (flush) 10 mL (BD POSIFLUSH) 10 mL INTRAVENOUS DIRECTED PRN Ligia Older, INDUSTRIAL REGISTERED NURSE.STENOGRAPHER SECRETARY PAST SURGICAL HISTORY Procedure Laterality Date CIRCUMCISION [...] Madelaine Mancuso PA-C documented in this encounter [facility] 12-04-2022 Miscellaneous Notes Order faxed to [facility] Addended by: SARAH HERRMANN on: 12/04/2022 03:28 PM Modules accepted: Orders OK., fax order to [facility] Mom (Lanie) calls to report C-pap machine is broken and requesting new order be sent to [facility]. Pended previous order. Please fax to [phone]. Piotr Lindsey RN documented in this encounter [facility] 03-28-2023 Miscellaneous Notes Patient given results and verbalized [...] if not improving. documented in this encounter [facility] 11-17-2022 History of Presen t illness Narrative Patient presents with: Head Congestion: cough x 4 days HPI: Feeling sick for 5 days; he is starting to feel better. 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 His mother is [...] Sreekanth Ackerman MD documented in this encounter [facility] 11-04-2022 History of Presen t illness Narrative This note was created using SoftLayer. Subjective Niko Brooke is a 32 year [...] Height as of 02/05/22: 188 cm (6' 2). Weight as of this encounter: 167.8 kg [...] Hector Currie MD documented in this encounter [facility] 10-03-2022 Instructions Carmelita Thomas APRN.STENOGRAPHER SECRETARY - 10/03/2022 1:21 PM EST Mutually Agreed Upon Goals Eating Plan: - Lose it BETHANY - Log intake 1-2 days per week. - Consider protein supplement for snack. - Applesauce is good. - Consider tuna or chicken salad wrap for lunch - Consider smoothies with added vegetables and fruit. To schedule with bariatric nutrition call [phone]. Also schedule 2 month follow up with [...] 16-55 Other Frozen meals: Kashi, Sweet Earth, Machine Printer Hose Lj's Reduced Guilt, EVOL, Sumanth Fry's Delights, Dr. Can's Protein Drinks Calories Protein (grams) Sugars (grams) EAS Advant Edge Carb Control 110 17 1 Isopure Clear Zero Carb 160 40 0 Muscle Milk light 100-160 15-20 0-1 Paradise Genomics Core Power 170 26 5 Orgain Protein Shake* 150 26 2 Premier Protein 160 30 1 Evolve (Vegan)* 160 20 5 Other Protein Shakes: Pure Protein, Ensure High Protein; *Offers plant based, dairy free option Protein Powders Calories (per scoop) Protein (g) Sugars (g) Isopure Zero Carb & Unflavored 105 25 0 Farm Butcher Whey Protein 100 18 3 Optimum Nutrition [...] Gluten-Free; V= vegan documented in this encounter [facility] 10-03-2022 History of Presen t illness Narrative BMI Obesity Medicine Consult [facility] Visit 10/03/22 Virtual Visit (Audio/Visual)I have discussed the nature of this visit with the patient which will occur via [facility] (Phone, Virtual Visit) and he agrees to proceed with this interaction. Patient Summary: Niko Brooke is a 32 year old male with obesity who presents to the [facility] for an initial evaluation of his obesity [...] yogurt and sugar free gatorade Dinner: hamburgers, setswana fries. - He will not eat vegetables because he does not like them Snacks: cereal with skim milk, PB&J, candy Drinks: diet soda (1 per day), sugar free gatorade, water, favored water. ETOH: none Characterization of diet:unhealthy snacking and evening snacking. Telegraph Equipment Maintainer of impaired eating habits:excessive hunger, lack of [...] Cancer Colon Cancer Screening No history of IL, COPD, peptic ulcer dx, gallstones, hypothyroidism, cancer, [...] intervention is the best and most appropriate director long term care therapeutic option. -- We discussed several strategies to track food intake and increase mindfulness around eating. He was counseled on Food records and snack replacements and adding more fruits/vegetables. Also recommended establishing with bariatric marble setter helper. -- Encouraged the patient to improve his [...] mom and pt. Provided drug information via RawFlow message and recommended watching the How to use pen video. Start Dulaglutide (Trulicity) 0.75 mg weekly [...] fruit. To schedule with bariatric nutrition call [phone]. Also schedule 2 month follow up with me. Activity: Create a habit of physical activity 3 days per week. Consider chair exercise on YouTube. Sleep: Continue using using CPAP. I spent a total of 47 minutes on the date of the service which included preparing to see the patient, exfq-vy-mzqf patient care, completing clinical documentation, obtaining and/or reviewing separately obtained history, performing a medically appropriate examination, counseling and educating the patient/family/caregiver, and ordering medications, tests, or procedures. Carmelita Thomas APRN.STENOGRAPHER SECRETARY documented in this encounter [facility] 09-26-2022 History of Presen t illness [...] Abs Lymph 1.00 - 4.00 k/uL 1.98 Cochran% % 6.0 Abs Cochran <0.87 k/uL 0.46 Eosin% % 0.0 Abs [...] 1 - N/A documented in this encounter [facility] 09-17-2022 Instructions Liudmila Breaux APRN.CNP - 09/17/2022 3:55 PM EST lifestyle modifications including losing weight, limiting caffeine, no meals three hours before sleep, and head of bed elevation. Try to limit things like red sauce and foods that are spicy. documented in this encounter [facility] 09-17-2022 History of Presen t illness Narrative Images from the original note were not included. SUBJECTIVE Niko Brooke is a 32 year old male here today for an ER follow up. Chief Complaint Patient presents with: ER F/U: Chest pain- [facility] 09/16/2022 HPI Niko Brooke is a 32 year old male established patient of Dr. Currie who presents today for ER follow up. He was seen in the ER at [facility] on 09/16/2022. Presents to ER for [...] Liudmila Breaux APRN-RADHA documented in this encounter [facility] 07-25-2022 Miscellaneous Notes Mother aware of [...] Abs Lymph 1.00 - 4.00 k/uL 1.98 Cochran% % 6.0 Abs Cochran <0.87 k/uL 0.46 Eosin% % 0.0 Abs [...] 4.200 mIU/L 1.750 documented in this encounter [facility] 07-22-2022 History of Presen t illness [...] Abs Lymph 1.00 - 4.00 k/uL 1.98 Cochran% % 6.0 Abs Cochran <0.87 k/uL 0.46 Eosin% % 0.0 Abs [...] 318.0, ICD10: F[address] Dasilva [facility]. Currently stable 6. DWIGHT (obstructive sleep apnea) [...] bariatric provider, medication if appropriate such as Andres. - CONSULT [facility] 9. IFG (impaired [...] follow up with labs MD Sarah Marks APRN.SALES SUPPORT REP Medical Decision Making: Problems: Moderate: 2+ stable chronic illnesses and 1+ chronic illnesses with change Data: Unique test(s) ordered: 2 Risk: Moderate: Drug management Medical Decision Making Level: 4 - Moderate documented in this encounter [facility] 06-27-2022 Miscellaneous Notes Patient mother Lanie [...] Barbara Posada RN documented in this encounter [facility] 05-13-2022 History of Presen t illness Narrative This note was created using Sotera Wireless[employer]. Subjective Niko Brooke is a 31 year [...] Abs Lymph 1.00 - 4.00 k/uL 1.98 Cochran% % 6.0 Abs Cochran <0.87 k/uL 0.46 Eosin% % 0.0 Abs [...] adult, unspecified whether serious comorbidity present ([facility]) E66.01 Z68.42 4. Mild intermittent [...] Hector Currie MD documented in this encounter [facility] 05-01-2022 History of Presen t illness [...] food and a small amount of swelling just wants to make sure everything is ok He has NOT used ice and he [...] FOOT GENERAL 3V AP/LAT/OBL RIGHT Alyssa Hernandez APRN.CNP documented in this encounter [facility] 04-29-2022 Miscellaneous Notes Patient's mother Lanie notified, verbalized understanding. Transferred to schedulers. Schuyler Ramon Ma Please let the patient know BNP was normal. He will need to have an echocardiogram, which is an ultrasound of the heart, to evaluate shortness of breath further. Ligia Coughlin APRN.CNP documented in this encounter [facility] 04-23-2022 Miscellaneous Notes Patient's mother Lanie notified, verbalized understanding. Schuyler Ramon Ma Please let the patient know the chest x-ray was normal. D-dimer was negative, no blood clots. The CBC and chemistry profile was within acceptable limits. I don't the results of BNP yet, will call as soon as I get these Ligia Coughlin APRN.CNP documented in this encounter [facility] 04-23-2022 History of Presen t illness [...] 2022 9:41 AM documented in this encounter [facility] 03-11-2022 Miscellaneous Notes Please call patient inform him biopsy unremarkable consistent with acid reflux - continue omeprazole 20mg daily on empty stomach. Colonoscopy one polyp was found which is tubular adenoma - precancerous recommend 5 year colonoscopy for surveillance purposes Thanks Roseanna Ross APRN.CNP documented in this encounter [facility] 03-05-2022 Note C. There is reactive epithelial change with no evidence of dysplasia. This case has been reviewed at the departmental consensus conference on 03/11/2022. The diagnosis represents the consensus of the group. [facility] Comment on above: Order Comment: Speci men Type: TISSUE SPECIMEN Ordering Facility: [facility] Address: [address] [place], [place] [id number] Performed By: #### S #### [facility] CLIA [id number] [address] [place] [address] [id number] [facility] 03-05-2022 History and physical note CHIEF COMPLAINT: Patient presents with: GERD Outpatient Colonoscopy: due to family history of colon cancer This consult was requested by Sarah Herrmann APRN.CNS for an opinion regarding colon cancer screening. My final recommendations will be communicated to the requesting health care provider by way of the shared medical record for internal providers or letter via the [employer] for external providers. Niko Brooke is a [...] Examination: BP 132/80 Pulse 102 Ht 6' 1.228 (1.86m) Wt 393 lb (178.3kg) SpO2 96% [...] with more than 50% of the total vsgw-bv-xecs time of the visit in counseling / coordination of care. I have confirmed and edited as necessary, the PFSH and ROS obtained by others. Roseanna Ross APRN.STENOGRAPHER SECRETARY UPDATED HISTORY AND PHYSICAL EXAMINATION SERVICE DATE: [...] TIME: 8:30 AM documented in this encounter [facility] 02-05-2022 History and physical note HISTORY [...] neuropathy (on rx). Negative for: cerebral palsy, SALES SUPPORT REP tumor, dementia, headaches, hemiplegia, Parkinson's disease, seizures, TIA and strokes. Respiratory: Positive for: asthma (rx as needed) and obstructive sleep apnea (has not recieved CPAP). Negative for: COPD, pneumonia within 6 weeks, tobacco use and URI < 2 weeks. Cardiovascular: Positive for: hypertension (on rx) Negative for: anticoagulation therapy, arrhythmia, atrial fibrillation, CAD, chest pain, CHF, congenital heart defect, DVT/PE, hyperlipidemia, recent IL, murmur/valvular heart disease, open heart surgery and [...] (Src) 98.7 (Temporal) Resp 16 Ht 6' 2 (1.88m) Wt 384 lb (174.2kg) SpO2 96% [...] or any previous visit (from the past 62852 hour(s)). Assessment Asthma Assessment: rx as needed [...] Class III, BMI 40-49.9 (morbid obesity) (HCC) Assessment: Body mass index is 49.3 kg/m [...] years old or younger STOP-Bang Score: 6 [id number] Score: Age: <65 Sex: male CHF history: No Hypertension history: Yes Stroke/TIA/thromboembolism history: No Vascular disease history: No Diabetes history: No [id number] Score: 1 ARISCAT Score: Age: <=50 Preoperative [...] AM PAGER/CONTACT #: documented in this encounter [facility] 02-05-2022 Instructions Alley Dee APRN.CNP - 02/05/2022 8:33 AM EDT PATIENT PREOPERATIVE INSTRUCTIONS Jaret King MD has scheduled you for your procedure at this surgery center: [facility]: [phone] -- [address] [facility] [address]. Please read below carefully for your personalized [...] Procedures: - YOU MUST HAVE A RESPONSIBLE MOBILE SALES CONSULTANT TAKE YOU HOME. A CLIENT MANAGER LARGE LAW OR PORTRAIT PAINTER CANNOT BE MADE A RESPONSIBLE MOBILE SALES CONSULTANT. 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 Equipment Owned: ineffective [...] hour of wear time per day until director multimedia wear is achieved. Pt was educated on [...] Custom biomechanical foot orthotics with serial number: #[id number] were issued to patient and proof of receipt form signed by pt and therapist. All specifications for custom foot orthotics can be found in orthotic evaluation visit note. Planned Interventions: Follow up as needed for brace fitting/issues. [place]:[facility]: Equipment: [id number] pair of custom foot orthotics No charge for time. Total time: 15 minutes Pavan Hampton PT documented in this encounter [facility] 12-03-2021 Instructions Roseanna Ross APRN.CNP - 12/03/2021 9:32 AM EDT Your procedure will be with at [place] Follow the provided instructions for colonoscopy. You [...] a wedge pillow. documented in this encounter [facility] 12-03-2021 History of Presen t illness Narrative CHIEF COMPLAINT: Patient presents with: GERD Outpatient Colonoscopy: due to family history of colon cancer This consult was requested by Sarah Herrmann APRN.SALES SUPPORT REP for an opinion regarding colon cancer screening. My final recommendations will be communicated to the requesting health care provider by way of the shared medical record for internal providers or letter via the [employer] for external providers. Niko Brooke [...] Examination: BP 132/80 Pulse 102 Ht 6' 1.228 (1.86m) Wt 393 lb (178.3kg) SpO2 96% [...] with more than 50% of the total lwsc-go-watj time of the visit in counseling / coordination of care. I have confirmed and edited as necessary, the PFSH and ROS obtained by others. Roseanna Ross APRN.CNP DATE: 12/03/21 TIME: 8:20 AM documented in this encounter [facility] 09-27-2010 History of Past i llness Narrative Problem Noted Date Resolved Date Tendonitis 09/27/2010 07/14/2012 Sprain of foot, unspecified site 09/27/2010 07/14/2012 documented as of this encounter (statuses as of 12/03/2021) [facility] History of Past illness Narrative* Problem Noted Date Resolved Date Tendonitis 09/27/2010 07/14/2012 Sprain of foot, unspecified site 09/27/2010 07/14/2012 documented as of this encounter (statuses as of 12/13/2021) [place] [id number] History of Past illness Narrative* Problem Noted Date Resolved Date Tendonitis 09/27/2010 07/14/2012 Sprain of foot, unspecified site 09/27/2010 07/14/2012 documented as of this encounter (statuses as of 02/05/2022) [address]04-2011 History of Past illness Narrative* Problem Noted Date Resolved Date Tendonitis 09/27/2010 07/14/2012 Sprain of foot, unspecified site 09/27/2010 07/14/2012 documented as of this encounter (statuses as of 02/11/2022) [address]04-2011 History of Past illness Narrative* Problem Noted Date Resolved Date Tendonitis 09/27/2010 07/14/2012 Sprain of foot, unspecified site 09/27/2010 07/14/2012 documented as of this encounter (statuses as of 03/06/2022) [facility] History of Past illness Narrative* Problem Noted Date Resolved Date Tendonitis 09/27/2010 07/14/2012 Sprain of foot, unspecified site 09/27/2010 07/14/2012 documented as of this encounter (statuses as of 03/13/2022) [facility] History of Past illness Narrative* Problem Noted Date Resolved Date Tendonitis 09/27/2010 07/14/2012 Sprain of foot, unspecified site 09/27/2010 07/14/2012 documented as of this encounter (statuses as of 04/23/2022) [facility] History of Past illness Narrative* Problem Noted Date Resolved Date Tendonitis 09/27/2010 07/14/2012 Sprain of foot, unspecified site 09/27/2010 07/14/2012 documented as of this encounter (statuses as of 04/25/2022) [facility] History of Past illness Narrative* Problem Noted Date Resolved Date Tendonitis 09/27/2010 07/14/2012 Sprain of foot, unspecified site 09/27/2010 07/14/2012 documented as of this encounter (statuses as of 04/29/2022) [facility] History of Past illness Narrative* Problem Noted Date Resolved Date Tendonitis 09/27/2010 07/14/2012 Sprain of foot, unspecified site 09/27/2010 07/14/2012 documented as of this encounter (statuses as of 05/01/2022) [facility] History of Past illness Narrative* Problem Noted Date Resolved Date Tendonitis 09/27/2010 07/14/2012 Sprain of foot, unspecified site 09/27/2010 07/14/2012 documented as of this encounter (statuses as of 06/20/2022) [facility] History of Past illness Narrative* Problem Noted Date Resolved Date Tendonitis 09/27/2010 07/14/2012 Sprain of foot, unspecified site 09/27/2010 07/14/2012 documented as of this encounter (statuses as of 06/27/2022) [facility] History of Past illness Narrative* Problem Noted Date Resolved Date Tendonitis 09/27/2010 07/14/2012 Sprain of foot, unspecified site 09/27/2010 07/14/2012 documented as of this encounter (statuses as of 07/22/2022) [facility] History of Past illness Narrative* Problem Noted Date Resolved Date Tendonitis 09/27/2010 07/14/2012 Sprain of foot, unspecified site 09/27/2010 07/14/2012 documented as of this encounter (statuses as of 07/25/2022) [facility] History of Past illness Narrative* Problem Noted Date Resolved Date Tendonitis 09/27/2010 07/14/2012 Sprain of foot, unspecified site 09/27/2010 07/14/2012 documented as of this encounter (statuses as of 09/17/2022) [facility] History of Past illness Narrative* Problem Noted Date Resolved Date Tendonitis 09/27/2010 07/14/2012 Sprain of foot, unspecified site 09/27/2010 07/14/2012 documented as of this encounter (statuses as of 09/26/2022) [facility] History of Past illness Narrative* Problem Noted Date Resolved Date Tendonitis 09/27/2010 07/14/2012 Sprain of foot, unspecified site 09/27/2010 07/14/2012 documented as of this encounter (statuses as of 10/03/2022) [facility] History of Past illness Narrative* Problem Noted Date Resolved Date Tendonitis 09/27/2010 07/14/2012 Sprain of foot, unspecified site 09/27/2010 07/14/2012 documented as of this encounter (statuses as of 11/18/2022) [address]04-2011 History of Past illness Narrative* Problem Noted Date Resolved Date Tendonitis 09/27/2010 07/14/2012 Sprain of foot, unspecified site 09/27/2010 07/14/2012 documented as of this encounter (statuses as of 11/18/2022) [address]04-2011 History of Past illness Narrative* Problem Noted Date Resolved Date Tendonitis 09/27/2010 07/14/2012 Sprain of foot, unspecified site 09/27/2010 07/14/2012 documented as of this encounter (statuses as of 12/01/2022) [address]04-2011 History of Past illness Narrative* Problem Noted Date Resolved Date Tendonitis 09/27/2010 07/14/2012 Sprain of foot, unspecified site 09/27/2010 07/14/2012 documented as of this encounter (statuses as of 12/05/2022) [address]04-2011 History of Past illness Narrative* Problem Noted Date Resolved Date Tendonitis 09/27/2010 07/14/2012 Sprain of foot, unspecified site 09/27/2010 07/14/2012 documented as of this encounter (statuses as of 12/18/2022) [facility] History of Past illness Narrative* Problem Noted Date Resolved Date Tendonitis 09/27/2010 07/14/2012 Sprain of foot, unspecified site 09/27/2010 07/14/2012 documented as of this encounter (statuses as of 12/26/2022) [facility] History of Past illness Narrative* Problem Noted Date Resolved Date Tendonitis 09/27/2010 07/14/2012 Sprain of foot, unspecified site 09/27/2010 07/14/2012 documented as of this encounter (statuses as of 12/31/2022) [address]04-2011 History of Past illness Narrative* Problem Noted Date Resolved Date Tendonitis 09/27/2010 07/14/2012 Sprain of foot, unspecified site 09/27/2010 07/14/2012 documented as of this encounter (statuses as of 02/14/2023) [facility] History of Past illness Narrative* Problem Noted Date Diagnosed Date Resolved Date Tendonitis 09/27/2010 07/14/2012 Sprain of foot, unspecified site 09/27/2010 07/14/2012 documented as of this encounter (statuses as of 05/23/2023) [facility] History of Past illness Narrative* Problem Noted Date Diagnosed Date Resolved Date Tendonitis 09/27/2010 07/14/2012 Sprain of foot, unspecified site 09/27/2010 07/14/2012 documented as of this encounter (statuses as of 07/15/2023) [facility] History of Past illness Narrative* Problem Noted Date Diagnosed Date Resolved Date Tendonitis 09/27/2010 07/14/2012 Sprain of foot, unspecified site 09/27/2010 07/14/2012 documented as of this encounter (statuses as of 09/25/2023) [facility] History of Past illness Narrative* Problem Noted Date Diagnosed Date Resolved Date Tendonitis 09/27/2010 07/14/2012 Sprain of foot, unspecified site 09/27/2010 07/14/2012 documented as of this encounter (statuses as of 09/28/2023) [facility] History of Past illness Narrative* Problem Noted Date Diagnosed Date Resolved Date Tendonitis 09/27/2010 07/14/2012 Sprain of foot, unspecified site 09/27/2010 07/14/2012 documented as of this encounter (statuses as of 10/12/2023) [facility] History of Past illness Narrative* Problem Noted Date Diagnosed Date Resolved Date Tendonitis 09/27/2010 07/14/2012 Sprain of foot, unspecified site 09/27/2010 07/14/2012 documented as of this encounter (statuses as of 10/23/2023) [facility] History of Past illness Narrative* Problem Noted Date Diagnosed Date Resolved Date Tendonitis 09/27/2010 07/14/2012 Sprain of foot, unspecified site 09/27/2010 07/14/2012 documented as of this encounter (statuses as of 11/06/2023) [facility] September 16, 2022 11:19am Note Date/Time September 16, 2022 1 0:07am [facility] Medical Records Department [address] [place] [address] Emergency Department Summary 09/16/22 MR#: [id number] Acct: [id number] Name: NIKO BROOKE Rep #:[id number] : [...] Worsened By: Movement of Torso and Breathing (a little) Relieved By: - (sitting up) Associated Symptoms: Positive for Dyspnea; Negative for Nausea, Vomiting, Diaphoresis, Cough, Fever, Lightheadedness or Palpitations Narrative Narrative: 32-year-old male started having central chest discomfort last night. He states he is a little short of breath. He states he has a history of asthma. He agrees that his chest feels tight. Mom brings him in because all my kids are big boys, he has high blood pressure, and his grandfather had a heart attack Garima was concerned he was having one. CVD Risk Factors: Positive for Hypertension; Negative [...] your Primary Care Provider. Call [facility] ([phone]) or report to the closest Emergency Room. Call 911 if necessary. 09/16/22 1119 <Electronically signed by Cuco Mccloud MD> Cosigner Signature (if applicable): CC: Dr. Hector Currie MD ~ Signed [facility] Work Phone: Evaluation note* Diagnosis Family history of colon cancer in father- Primary Family history of colon cancer Family history of malignant neoplasm of gastrointestinal tract Colon cancer screening Special screening for malignant neoplasms, colon Dysphagia, unspecified type [facility] Diagnosis Congenital pes planus, unspecified laterality- Primary [facility] Diagnosis Pre-operative examination- Primary Preoperative examination, [...] (HCC) Morbid obesity [facility] Diagnosis Family history of colon cancer Family history of malignant neoplasm of gastrointestinal tract Colon cancer screening Special screening for malignant neoplasms, colon Family history of colon cancer in father Dysphagia, unspecified type documented in this encounter [facility] note* Diagnosis Bilateral lower extremity edema- Primary Edema SOB (shortness of breath) on exertion Shortness of breath [facility]* Diagnosis SOB (shortness of breath) on exertion- Primary Shortness of breath documented in this encounter [facility] noteNo assessment information availableWWayne Hospital Work Phone: Evaluation note* Diagnosis Foot pain, right- Primary Pain in limb documented in this encounter [facility] note* Diagnosis BAJWA (dyspnea on exertion)- [...] depression Dysthymic disorder [facility]* Diagnosis Essential hypertension- Primary Unspecified essential hypertension Elevated glucose Other abnormal glucose IFG (impaired fasting glucose) Impaired fasting glucose Elevated LDL cholesterol level Pure hypercholesterolemia Encounter for long-term current use of medication documented in this encounter [facility] note* Diagnosis Essential hypertension- Primary Unspecified essential [...] Unspecified essential hypertension [facility] Diagnosis Gastroesophageal reflux disease, unspecified whether esophagitis present- Primary Atypical chest pain Other chest pain Class 3 severe obesity due to excess calories with body mass index (BMI) of 45.0 to 49.9 in adult, unspecified whether serious comorbidity present (HCC) [facility]* Diagnosis Excessive cerumen in ear canal, right- Primary Impacted cerumen of left ear Impacted cerumen [facility]* Diagnosis Class 3 severe obesity without serious comorbidity with body mass index (BMI) of 45.0 to 49.9 in adult, unspecified obesity type (HCC)- Primary Prediabetes Other abnormal glucose Primary hypertension Unspecified essential hypertension DWIGHT (obstructive sleep apnea) Obstructive sleep apnea (adult) (pediatric) Gastroesophageal reflux disease, unspecified whether esophagitis present [facility]* Diagnosis URI, acute- Primary Acute upper respiratory infections of unspecified site Exposure to confirmed case of COVID-19 [facility]* Diagnosis Primary hypertension- Primary Unspecified essential [...] Impaired fasting glucose [facility]* Diagnosis Puncture wound of left foot with foreign body, initial encounter- Primary [facility]* Diagnosis Class 3 severe obesity without serious comorbidity with body mass index (BMI) of 45.0 to 49.9 in adult, unspecified obesity type (HCC)- Primary Prediabetes Other abnormal glucose [facility]* Diagnosis Acute left ankle pain- Primary Foot pain, left Pain in limb [facility]* Diagnosis Toothache- Primary Unspecified disorder of the teeth and supporting structures [facility]* Diagnosis Financial difficulty- Primary Inadequate material resources [facility]* Diagnosis Class 3 severe obesity without serious comorbidity with body mass index (BMI) of 45.0 to 49.9 in adult, unspecified obesity type (HCC)- Primary Controlled type 2 diabetes mellitus without complication, without long-term current use of insulin ([facility]) documented in this encounter [facility] note* Diagnosis URI, acute- Primary Acute upper respiratory infections of unspecified site Acute cough documented in this encounter [facility] note* Diagnosis Controlled type 2 diabetes mellitus [...] and parasitic disease documented in this encounter [facility] note* Diagnosis Controlled type 2 diabetes mellitus without complication, without long-term current use of insulin (HCC)- Primary [facility]* Diagnosis On [facility] drug therapy- Primary documented in this encounter [facility] note* Diagnosis Controlled type 2 diabetes mellitus [...] apnea (adult) (pediatric) [facility]* Diagnosis Pre-operative examination- Primary Preoperative examination, [...] site Acute cough [facility] Pre-operative examination- Primary Preoperative examination, [...] Primary Acute pharyngitis documented in this encounter [facility] note* Diagnosis Pre-operative examination- Primary Preoperative [...] complication, initial encounter documented in this encounter [facility] note* Diagnosis Pre-operative examination- Primary Preoperative [...] Pain in limb documented in this encounter [facility] note* Diagnosis Pre-operative examination- Primary Preoperative [...] Shortness of breath documented in this encounter [facility] note* Diagnosis Pre-operative examination- Primary Preoperative [...] comorbidity present (HCC) documented in this encounter [facility] note* Diagnosis Pre-operative examination- Primary Preoperative [...] apnea (adult) (pediatric) [facility] Diagnosis Pre-operative examination- Primary Preoperative examination, [...] apnea (adult) (pediatric) [facility] Diagnosis Pre-operative examination- Primary Preoperative examination, [...] with neurogenic claudication [facility] Diagnosis Pre-operative examination- Primary Preoperative examination, [...] Unspecified essential hypertension [facility] Diagnosis Pre-operative examination- Primary Preoperative examination, [...] nonspecific skin eruption [facility]* Diagnosis Pre-operative examination- Primary Preoperative examination, [...] and behavioral disorders documented in this encounter [facility] note* Diagnosis Pre-operative examination- Primary Preoperative [...] with neurogenic claudication documented in this encounter [facility] note* Diagnosis Pre-operative examination- Primary Preoperative [...] other respiratory manifestations documented in this encounter [facility] note* Diagnosis Pre-operative examination- Primary Preoperative [...] obesity type (HCC) [facility] Diagnosis Pre-operative examination- Primary Preoperative examination, [...] apnea (adult) (pediatric) [facility]* Diagnosis Pre-operative examination- Primary Preoperative examination, [...] obesity type (HCC) [facility] Diagnosis Pre-operative examination- Primary Preoperative [...] unspecified hyperlipidemia type [facility] Outpatient Procedure (Routine) - Authorized Specialty Diagnoses / Procedures Referred By Rachel t Referred To Contact [facility] Diagnoses Dysphagia, unspecified type Procedures EGD DIAGNOSTIC ESOPHAGOGASTRODUODENOSC OPY TRANSORAL DIAGNOSTIC Roseanna Ross, INDUSTRIAL REGISTERED NURSE.STENOGRAPHER SECRETARY [address] [place] [address] [place] [address] Referral ID Status Reason Start Date Expiration Date Visits Requested Visits Authorized [id number] Authorized Auto-Generat ed Referral 12/03/2021 12/03/2022 1 1 * Outpatient Procedure (Routine) - Authorized Specialty Diagnoses / Procedures Referred By Contac t Referred To Contact [facility] Diagnoses Family history of colon cancer Colon cancer screening Family history of colon cancer in father Procedures COLONOSCOPY SCREENING COLONOSCOPY FLX DX W/COLLJ SPEC WHEN PFRMRoseanna Mcnamara APRN.STENOGRAPHER SECRETARY [address] [place] [address] [facility] Disease [address] [address] Referral ID Status Reason Start Date Expiration Date Visits Requested Visits Authorized [id number] Authorized Auto-Generat ed Referral 12/03/2021 12/03/2022 1 1 [facility] for [facility] (narrative)* Outpatient Procedure (Routine) - Closed Specialty Diagnoses / Procedures Referred By Contac t Referred To Contact [facility] Diagnoses Dysphagia, unspecified type Procedures EGD DIAGNOSTIC ESOPHAGOGASTRODUODENOSC OPY TRANSORAL DIAGNOSTIC Roseanna Ross APRN.STENOGRAPHER SECRETARY [address] [place] [id number] [facility] Disease [place] [id number] Referral ID Status Reason Start Date Expiration Date V isits Requested Visits Authorized [id number] Closed Auto-Generate d Referral 12/03/2021 12/03/2022 1 1 * Outpatient Procedure (Routine) - Closed Specialty Diagnoses / Procedures Referred By Contac t Referred To Contact [facility] Diagnoses Family history of colon cancer Colon cancer screening Family history of colon cancer in father Procedures COLONOSCOPY SCREENING COLONOSCOPY FLX DX W/COLLJ SPEC WHEN PFRoseanna Escobedo APRN.STENOGRAPHER SECRETARY [address] [place] [address] [facility] [place] [address] [place] [id number] Referral ID Status Reason Start Date Expiration Date V isits Requested Visits Authorized [id number] Closed Auto-Generate d Referral 12/03/2021 12/03/2022 1 1 [facility] for referral (narrative)* Outpatient Procedure (Routine) - Authorized Specialty Diagnoses / Procedures Referred By Rachel mulligan Referred To Contact [facility] [place] Diagnoses SOB (shortness of breath) on exertion Procedures ECHO ECHO TTHRC R-T 2D W/WOM-MODE COMPL SPEC&COLR D Ligia Coughlin APRN.STENOGRAPHER SECRETARY [address] [place] [address] [facility] [place] [phone] Referral ID Status Reason Start Date Expiration Date Visits Requested Visits Authorized [id number] Authorized Auto-Generat ed Referral 04/29/2022 04/29/2023 1 1 [facility] for referral (narrative)* Diagnostic Procedure Only (Routine) - Closed Specialty Diagnoses / Procedures Referred By Rachel mulligan Referred To Contact [facility] IM[facility] Diagnoses Foot pain, right Procedures XR FOOT GENERAL 3V AP/LAT/OBL RIGHT RADEX FOOT COMPLETE MINIMUM 3 VIEWS Alyssa Hernandez APRN.STENOGRAPHER SECRETARY [address] [place] [address] Xr Imaging Referral ID Status Reason Start Date Expiration Date V isits Requested Visits Authorized [id number] Closed Auto-Generate d Referral 05/01/2022 05/31/2023 1 1 [facility] for [facility] (narrative)* Diagnostic Procedure Only (Urgent) - Closed Specialty Diagnoses / Procedures Referred By Contac t Referred To Contact XR IMAGING Diagnoses Acute left ankle pain Procedures XR ANKLE GENERAL 3V AP/LAT/OBL LEFT RADEX ANKLE COMPLETE MINIMUM 3 VIEWS Celso Smith APRN.STENOGRAPHER SECRETARY [address] [place] [address] Xr Imaging Referral ID Status Reason Start Date Expiration Date V isits Requested Visits Authorized [id number] Closed Auto-Generate d Referral 02/13/2023 03/14/2024 1 1 * Diagnostic Procedure Only (Urgent) - Closed Specialty Diagnoses / Procedures Referred By Contac t Referred To Contact XR IMAGING Diagnoses Foot pain, left Procedures XR FOOT GENERAL 3V AP/LAT/OBL LEFT RADEX FOOT COMPLETE MINIMUM 3 VIEWS Celso Smith APRN.CNP [address] [place] [address] Xr Imaging Referral ID Status Reason Start Date Expiration Date V isits Requested Visits Authorized [id number] Closed Auto-Generate d Referral 02/13/2023 03/14/2024 1 1 [facility] for referral (narrative)* Diagnostic Procedure Only (Urgent) - Closed Specialty Diagnoses / Procedures Referred By Contac t Referred To Contact XR IMAGING Diagnoses Puncture wound of left foot with foreign body, initial encounter Procedures XR FOOT GENERAL 3V AP/LAT/OBL LEFT RADEX FOOT COMPLETE MINIMUM 3 VIEWS Madelaine Mancuso PA-C [address] [place] [address] [place] [address] Referral ID Status Reason Start Date Expiration Date V isits Requested Visits Authorized [id number] Closed Auto-Generate d Referral 12/17/2022 01/16/2024 1 1 [facility] for referral (narrative)* Diagnostic Procedure Only (Routine) - Closed Specialty Diagnoses / Procedures Referred By Contac t Referred To Contact XR IMAGING Diagnoses Foot pain, right Procedures XR FOOT GENERAL 3V AP/LAT/OBL RIGHT RADEX FOOT COMPLETE MINIMUM 3 VIEWS Alyssa Hernandez APRN.STENOGRAPHER SECRETARY [address] [place] [address] [place] [address] Referral ID Status Reason Start Date Expiration Date V isits Requested Visits Authorized [id number] Closed Auto-Generate d Referral 05/01/2022 05/31/2023 1 1 [facility] for referral (narrative)No reason for referral information availableWWayne [facility] Work Phone: Reason for visit Narrative* Outpatient Procedure (Routine) - Closed Specialty Diagnoses / Procedures Referred By Contac t Referred To Contact [facility] Diagnoses Dysphagia, unspecified type Procedures EGD DIAGNOSTIC ESOPHAGOGASTRODUODENOSC OPY TRANSORAL DIAGNOSTIC Roseanna Ross APRN.STENOGRAPHER SECRETARY [address] [place] [address] [facility] [address] [place] [address] Referral ID Status Reason Start Date Expiration Date V isits Requested Visits Authorized [id number] Closed Auto-Generate d Referral 12/03/2021 12/03/2022 1 1 [facility] for visit Narrative* Diagnostic Procedure Only (Urgent) - Closed Specialty Diagnoses / Procedures Referred By Contac t Referred To Contact XR IMAGING Diagnoses Acute left ankle pain Procedures XR ANKLE GENERAL 3V AP/LAT/OBL LEFT RADEX ANKLE COMPLETE MINIMUM 3 VIEWS Celso Smith INDUSTRIAL REGISTERED NURSE.STENOGRAPHER SECRETARY [address] [place] [address] [place] [address] Referral ID Status Reason Start Date Expiration Date V isits Requested Visits Authorized [id number] Closed Auto-Generate d Referral 02/13/2023 03/14/2024 1 1 [facility] for visit Narrative* Diagnostic Procedure Only (Urgent) - Closed Specialty Diagnoses / Procedures Referred By Contac t Referred To Contact XR IMAGING Diagnoses Puncture wound of left foot with foreign body, initial encounter Procedures XR FOOT GENERAL 3V AP/LAT/OBL LEFT RADEX FOOT COMPLETE MINIMUM 3 VIEWS Madelaine Mancuso PA-C [address] [place] [address] [place] [address] Referral ID Status Reason Start Date Expiration Date V isits Requested Visits Authorized [id number] Closed Auto-Generate d Referral 12/17/2022 01/16/2024 1 [facility] Procedure Only (Routine) - Closed Specialty Diagnoses / Procedures Referred By Contac t Referred To Contact XR IMAGING Diagnoses Foot pain, right Procedures XR FOOT GENERAL 3V AP/LAT/OBL RIGHT RADEX FOOT COMPLETE MINIMUM 3 VIEWS Alyssa Hernandez APRN.STENOGRAPHER SECRETARY [address] [place] [address] [place] [address] Referral ID Status Reason Start Date Expiration Date V isits Requested Visits Authorized [id number] Closed Auto-Generate d Referral 05/01/2022 05/31/2023 1 1 [facility] Summary Purpose Family History No Family History Records FoundNo Family History Records FoundNo Family History Records FoundNo Family History Records FoundNo Family History Records Found Advance Directives No Advanced Directives Records FoundDocuments on File Type Date Recorded Patient Canadian Bacon Tier Expl anation Advance Directive(s) 01/27/2022 10:10 AM Documents on File Type Date Recorded Patient Canadian Bacon Tier Expl anation Advance Directive(s) 03/05/2022 7:15 AM Advance Directive(s) 01/27/2022 10:10 AM Documents on File Type Date Recorded Patient Canadian Bacon Tier Expl anation Advance Directive(s) 03/05/2022 7:15 AM Advance Directive(s) 01/27/2022 10:10 AM Advance Directive Response Recorded Date/ Time Living Will No July 11 6:38pm Power of Buckle Sewer No July 11, 2021 6:38pm Advance Directive Response Recorded Date/ Time Living Will No September 16 9:03am Power of Buckle Sewer No September 16, 2022 9:03am Medications Administered Section Inactive Administered Medications - up to 3 most recent administrations Medication Order MAR Action Action Date Dose Rate Site benzocaine 20% 4 Exira (TOPEX) 4 Exira, TOPICAL, ONCE, 1 dose, On Thu03/05/22 at [...] Referral Specialty Diagnoses / Procedures Referred By Contac t Referred To Contact Diagnoses Class 3 severe obesity without serious comorbidity with body mass index (BMI) of 45.0 to 49.9 in adult, unspecified obesity type (HCC) Procedures CONSULT [facility]RIC[facility] OFFICE/OUTPATIENT [facility] 60-74 MINUTES Sarah Herrmann, INDUSTRIAL REGISTERED NURSE.SALES SUPPORT REP [address] [place] [address] Referral ID Status Reason Start Date Expiration Date Visits Requested Visits Authorized [id number] Authorized PCP Requested Referral 2 07/22/2023 1 1 Specialty Diagnoses / Procedures Referred By Contac t Referred To Contact Diagnoses Class 3 severe obesity without serious comorbidity with body mass index (BMI) of 45.0 to 49.9 in adult, unspecified obesity type (HCC) Procedures CONSULT TO BARIATRIC NUTRITION OFFICE/OUTPATIENT [facility] 60-74 MINUTES Carmelita Thomas, INDUSTRIAL REGISTERED NURSE.STENOGRAPHER SECRETARY [address] [place] [address] Referral ID Status Reason Start Date Expiration Date Visits Requested Visits Authorized [id number] Pending Review PCP Requested Referral 10/03/2022 10/03/2023 1 1 Specialty Diagnoses / Procedures Referred By Contac t Referred To Contact Podiatry Diagnoses Puncture wound of left foot with foreign body, initial encounter Procedures CONSULT TO PODIATRY OFFICE/OUTPATIENT [facility] 60-74 MINUTES Madelaine Mancuso PA-C [address] [place] [address] Referral ID Status Reason Start Date Expiration Date Visits Requested Visits Authorized [id number] Authorized PCP Requested Referral 12/17/2022 12/17/2023 1 1 Specialty Diagnoses / Procedures Referred By Contac t Referred To Contact XR IMAGING Diagnoses Puncture wound of left foot with foreign body, initial encounter Procedures XR FOOT GENERAL 3V AP/LAT/OBL LEFT RADEX FOOT COMPLETE MINIMUM 3 VIEWS Madelaine Mancuso PA-C [address] [place] [address] Xr Imaging Referral ID Status Reason Start Date Expiration Date V isits Requested Visits Authorized [id number] Closed Auto-Generate d Referral 12/17/2022 01/16/2024 1 1 Specialty Diagnoses / Procedures Referred By Contac t Referred To Contact Diagnoses Controlled type 2 diabetes mellitus without complication, without long-term current use of insulin (HCC) Liudmila Breaux APRN.STENOGRAPHER SECRETARY [address] [phone] Referral ID Status Reason Start Date Expiration Date Visits Re quested Visits Authorized [id number] Closed 1 1 Specialty Diagnoses / Procedures Referred By Contac t Referred To Contact Diagnoses Controlled type 2 diabetes mellitus without complication, without long-term current use of insulin (HCC) Class 3 severe obesity without serious comorbidity with body mass index (BMI) of 45.0 to 49.9 in adult, unspecified obesity type (HCC) Primary hypertension Hector Currie MD [address] [place] [address] Referral ID Status Reason Start Date Expiration Date Visits Re quested Visits Authorized [id number] Closed 1 1 Chief Complaint and Reason [...] section and content) DATE CREATED AUTHOR 11/27/2018 [facility] DATE CREATED AUTHOR AUTHOR'S ORGANIZ ATION 09/10/2021 [facility] DATE CREATED AUTHOR AUTHOR'S ORGANIZ ATION 03/14/2022 [facility] DATE CREATED AUTHOR AUTHOR[facility] AT[facility] DATE CREATED AUTHOR AUTHOR'S ORGANIZ ATION 06/24/2025 [facility] Source Comments (unrecognize d section and content) In the event this informatio n is protected by the Federal Confidentiality of Alcohol and Drug Abuse Patient Records regulations: The Federal rules restrict any use of the information to criminally investigate or prosecute any alcohol or drug abuse patient.[facility] the event this information is protected by the Federal Confidentiality of Alcohol and Drug Abuse Patient Records regulations: The Federal rules restrict any use of the information to criminally investigate or prosecute any alcohol or drug abuse patient.[facility] the event this information is protected by the Federal Confidentiality of Alcohol and Drug Abuse Patient Records regulations: The Federal rules restrict any use of the information to criminally investigate or prosecute any alcohol or drug abuse patient.[facility] the event this information is protected by the Federal Confidentiality of Alcohol and Drug Abuse Patient Records regulations: The Federal rules restrict any use of the information to criminally investigate or prosecute any alcohol or drug abuse patient.[facility] the event this information is protected by the Federal Confidentiality of Alcohol and Drug Abuse Patient Records regulations: The Federal rules restrict any use of the information to criminally investigate or prosecute any alcohol or drug abuse patient.[facility] the event this information is protected by the Federal Confidentiality of Alcohol and Drug Abuse Patient Records regulations: The Federal rules restrict any use of the information to criminally investigate or prosecute any alcohol or drug abuse patient.[facility] the event this information is protected by the Federal Confidentiality of Alcohol and Drug Abuse Patient Records regulations: The Federal rules restrict any use of the information to criminally investigate or prosecute any alcohol or drug abuse patient.[facility] the event this information is protected by the Federal Confidentiality of Alcohol and Drug Abuse Patient Records regulations: The Federal rules restrict any use of the information to criminally investigate or prosecute any alcohol or drug abuse patient.[facility] the event this information is protected by the Federal Confidentiality of Alcohol and Drug Abuse Patient Records regulations: The Federal rules restrict any use of the information to criminally investigate or prosecute any alcohol or drug abuse patient.[facility]In the event this information is protected by the Federal Confidentiality of Alcohol and Drug Abuse Patient Records regulations: The Federal rules restrict any use of the information to criminally investigate or prosecute any alcohol or drug abuse patient.[facility] the event this information is protected by the Federal Confidentiality of Alcohol and Drug Abuse Patient Records regulations: The Federal rules restrict any use of the information to criminally investigate or prosecute any alcohol or drug abuse patient.[facility] the event this information is protected by the Federal Confidentiality of Alcohol and Drug Abuse Patient Records regulations: The Federal rules restrict any use of the information to criminally investigate or prosecute any alcohol or drug abuse patient.[facility] the event this information is protected by the Federal Confidentiality of Alcohol and Drug Abuse Patient Records regulations: The Federal rules restrict any use of the information to criminally investigate or prosecute any alcohol or drug abuse patient.[facility] HospitalIn the event this information is protected by the Federal Confidentiality of Alcohol and Drug Abuse Patient Records regulations: The Federal rules restrict any use of the information to criminally investigate or prosecute any alcohol or drug abuse patient.[facility] HospitalIn the event this information is protected by the Federal Confidentiality of Alcohol and Drug Abuse Patient Records regulations: The Federal rules restrict any use of the information to criminally investigate or prosecute any alcohol or drug abuse patient.[facility] HospitalIn the event this information is protected by the Federal Confidentiality of Alcohol and Drug Abuse Patient Records regulations: The Federal rules restrict any use of the information to criminally investigate or prosecute any alcohol or drug abuse patient.[facility] HospitalIn the event this information is protected by the Federal Confidentiality of Alcohol and Drug Abuse Patient Records regulations: The Federal rules restrict any use of the information to criminally investigate or prosecute any alcohol or drug abuse patient.[facility] HospitalIn the event this information is protected by the Federal Confidentiality of Alcohol and Drug Abuse Patient Records regulations: The Federal rules restrict any use of the information to criminally investigate or prosecute any alcohol or drug abuse patient.[facility] HospitalIn the event this information is protected by the Federal Confidentiality of Alcohol and Drug Abuse Patient Records regulations: The Federal rules restrict any use of the information to criminally investigate or prosecute any alcohol or drug abuse patient.[facility] HospitalIn the event this information is protected by the Federal Confidentiality of Alcohol and Drug Abuse Patient Records regulations: The Federal rules restrict any use of the information to criminally investigate or prosecute any alcohol or drug abuse patient.[facility] HospitalIn the event this information is protected by the Federal Confidentiality of Alcohol and Drug Abuse Patient Records regulations: The Federal rules restrict any use of the information to criminally investigate or prosecute any alcohol or drug abuse patient.[facility] HospitalIn the event this information is protected by the Federal Confidentiality of Alcohol and Drug Abuse Patient Records regulations: The Federal rules restrict any use of the information to criminally investigate or prosecute any alcohol or drug abuse patient.[facility] HospitalIn the event this information is protected by the Federal Confidentiality of Alcohol and Drug Abuse Patient Records regulations: The Federal rules restrict any use of the information to criminally investigate or prosecute any alcohol or drug abuse patient.[facility] HospitalIn the event this information is protected by the Federal Confidentiality of Alcohol and Drug Abuse Patient Records regulations: The Federal rules restrict any use of the information to criminally investigate or prosecute any alcohol or drug abuse patient.[facility] HospitalIn the event this information is protected by the Federal Confidentiality of Alcohol and Drug Abuse Patient Records regulations: The Federal rules restrict any use of the information to criminally investigate or prosecute any alcohol or drug abuse patient.[facility] HospitalIn the event this information is protected by the Federal Confidentiality of Alcohol and Drug Abuse Patient Records regulations: The Federal rules restrict any use of the information to criminally investigate or prosecute any alcohol or drug abuse patient.[facility]In the event this information is protected by the Federal Confidentiality of Alcohol and Drug Abuse Patient Records regulations: The Federal rules restrict any use of the information to criminally investigate or prosecute any alcohol or drug abuse patient.[facility] HospitalIn the event this information is protected by the Federal Confidentiality of Alcohol and Drug Abuse Patient Records regulations: The Federal rules restrict any use of the information to criminally investigate or prosecute any alcohol or drug abuse patient.[facility] HospitalIn the event this information is protected by the Federal Confidentiality of Alcohol and Drug Abuse Patient Records regulations: The Federal rules restrict any use of the information to criminally investigate or prosecute any alcohol or drug abuse patient.[facility] HospitalIn the event this information is protected by the Federal Confidentiality of Alcohol and Drug Abuse Patient Records regulations: The Federal rules restrict any use of the information to criminally investigate or prosecute any alcohol or drug abuse patient.[facility] HospitalIn the event this information is protected by the Federal Confidentiality of Alcohol and Drug Abuse Patient Records regulations: The Federal rules restrict any use of the information to criminally investigate or prosecute any alcohol or drug abuse patient.[facility] HospitalIn the event this information is protected by the Federal Confidentiality of Alcohol and Drug Abuse Patient Records regulations: The Federal rules restrict any use of the information to criminally investigate or prosecute any alcohol or drug abuse patient.[facility] HospitalIn the event this information is protected by the Federal Confidentiality of Alcohol and Drug Abuse Patient Records regulations: The Federal rules restrict any use of the information to criminally investigate or prosecute any alcohol or drug abuse patient.[facility] HospitalIn the event this information is protected by the Federal Confidentiality of Alcohol and Drug Abuse Patient Records regulations: The Federal rules restrict any use of the information to criminally investigate or prosecute any alcohol or drug abuse patient.[facility] HospitalIn the event this information is protected by the Federal Confidentiality of Alcohol and Drug Abuse Patient Records regulations: The Federal rules restrict any use of the information to criminally investigate or prosecute any alcohol or drug abuse patient.[facility] HospitalIn the event this information is protected by the Federal Confidentiality of Alcohol and Drug Abuse Patient Records regulations: The Federal rules restrict any use of the information to criminally investigate or prosecute any alcohol or drug abuse patient.[facility] HospitalIn the event this information is protected by the Federal Confidentiality of Alcohol and Drug Abuse Patient Records regulations: The Federal rules restrict any use of the information to criminally investigate or prosecute any alcohol or drug abuse patient.[facility] HospitalIn the event this information is protected by the Federal Confidentiality of Alcohol and Drug Abuse Patient Records regulations: The Federal rules restrict any use of the information to criminally investigate or prosecute any alcohol or drug abuse patient.[facility] HospitalIn the event this information is protected by the Federal Confidentiality of Alcohol and Drug Abuse Patient Records regulations: The Federal rules restrict any use of the information to criminally investigate or prosecute any alcohol or drug abuse patient.[facility] HospitalIn the event this information is protected by the Federal Confidentiality of Alcohol and Drug Abuse Patient Records regulations: The Federal rules restrict any use of the information to criminally investigate or prosecute any alcohol or drug abuse patient.[facility] HospitalIn the event this information is protected by the Federal Confidentiality of Alcohol and Drug Abuse Patient Records regulations: The Federal rules restrict any use of the information to criminally investigate or prosecute any alcohol or drug abuse patient.[facility] HospitalIn the event this information is protected by the Federal Confidentiality of Alcohol and Drug Abuse Patient Records regulations: The Federal rules restrict any use of the information to criminally investigate or prosecute any alcohol or drug abuse patient.[facility] HospitalIn the event this information is protected by the Federal Confidentiality of Alcohol and Drug Abuse Patient Records regulations: The Federal rules restrict any use of the information to criminally investigate or prosecute any alcohol or drug abuse patient.[facility] HospitalIn the event this information is protected by the Federal Confidentiality of Alcohol and Drug Abuse Patient Records regulations: The Federal rules restrict any use of the information to criminally investigate or prosecute any alcohol or drug abuse patient.[facility] HospitalIn the event this information is protected by the Federal Confidentiality of Alcohol and Drug Abuse Patient Records regulations: The Federal rules restrict any use of the information to criminally investigate or prosecute any alcohol or drug abuse patient.[facility] HospitalIn the event this information is protected by the Federal Confidentiality of Alcohol and Drug Abuse Patient Records regulations: The Federal rules restrict any use of the information to criminally investigate or prosecute any alcohol or drug abuse patient.[facility] HospitalIn the event this information is protected by the Federal Confidentiality of Alcohol and Drug Abuse Patient Records regulations: The Federal rules restrict any use of the information to criminally investigate or prosecute any alcohol or drug abuse patient.[facility] HospitalIn the event this information is protected by the Federal Confidentiality of Alcohol and Drug Abuse Patient Records regulations: The Federal rules restrict any use of the information to criminally investigate or prosecute any alcohol or drug abuse patient.[facility] HospitalIn the event this information is protected by the Federal Confidentiality of Alcohol and Drug Abuse Patient Records regulations: The Federal rules restrict any use of the information to criminally investigate or prosecute any alcohol or drug abuse patient.[facility] HospitalIn the event this information is protected by the Federal Confidentiality of Alcohol and Drug Abuse Patient Records regulations: The Federal rules restrict any use of the information to criminally investigate or prosecute any alcohol or drug abuse patient.[facility] HospitalIn the event this information is protected by the Federal Confidentiality of Alcohol and Drug Abuse Patient Records regulations: The Federal rules restrict any use of the information to criminally investigate or prosecute any alcohol or drug abuse patient.[facility] HospitalIn the event this information is protected by the Federal Confidentiality of Alcohol and Drug Abuse Patient Records regulations: The Federal rules restrict any use of the information to criminally investigate or prosecute any alcohol or drug abuse patient.[facility] HospitalIn the event this information is protected by the Federal Confidentiality of Alcohol and Drug Abuse Patient Records regulations: The Federal rules restrict any use of the information to criminally investigate or prosecute any alcohol or drug abuse patient.[facility] Hospital[facility] the event this information is protected by the Federal Confidentiality of Alcohol and Drug Abuse Patient Records regulations: The Federal rules restrict any use of the information to criminally investigate or prosecute any alcohol or drug abuse patient.[facility] Hospital[facility] the event this information is protected by the Federal Confidentiality of Alcohol and Drug Abuse Patient Records regulations: The Federal rules restrict any use of the information to criminally investigate or prosecute any alcohol or drug abuse patient.[facility] HospitalIn the event this information is protected by the Federal Confidentiality of Alcohol and Drug Abuse Patient Records regulations: The Federal rules restrict any use of the information to criminally investigate or prosecute any alcohol or drug abuse patient.[facility] HospitalIn the event this information is protected by the Federal Confidentiality of Alcohol and Drug Abuse Patient Records regulations: The Federal rules restrict any use of the information to criminally investigate or prosecute any alcohol or drug abuse patient.[facility] HospitalIn the event this information is protected by the Federal Confidentiality of Alcohol and Drug Abuse Patient Records regulations: The Federal rules restrict any use of the information to criminally investigate or prosecute any alcohol or drug abuse patient.[facility] HospitalIn the event this information is protected by the Federal Confidentiality of Alcohol and Drug Abuse Patient Records regulations: The Federal rules restrict any use of the information to criminally investigate or prosecute any alcohol or drug abuse patient.[facility] Reason for Visit (unrecogniz ed section and content) Reason Comments GERD Outpatient Colonoscopy due to family his tory of colon cancer Specialty Diagnoses / Procedures Referred By Rachel mulligan Referred To Contact Gastroenterology Diagnoses Family history of colon cancer Colon cancer screening Procedures CONSULT TO GASTROENTEROLOGY OFFICE/OUTPATIENT [facility] 60-74 MINUTES Sarah Herrmann, INDUSTRIAL REGISTERED NURSE.SALES SUPPORT REP [address] [place] [address] Referral ID Status Reason Start Date Expiration Date V isits Requested Visits Authorized [id number] Closed PCP Requested Referral 10/14/2021 10/14/2022 1 1 Reason Comments PT Discharge Specialty Diagnoses / Procedures Referred By Rachel mulligan Referred To Contact Podiatry Diagnoses Congenital pes planus, unspecified laterality Procedures CONSULT TO PODIATRY OFFICE/OUTPATIENT [facility] 60-74 MINUTES Sarah Herrmann, INDUSTRIAL REGISTERED NURSE.SALES SUPPORT REP [address] [place] [address] Referral ID Status Reason Start Date Expiration Date V isits Requested Visits Authorized [id number] Closed PCP Requested Referral 10/18/2021 10/18/2022 1 1 Reason Comments Pre-Op Exam Reason Comments Refill Request Reason Comments Results Reason Comments Results Reason Comments Pain (foot) (RT) foot pain, bump ed into table, x2 days, denied fall. Reason Comments Yearly Exam Reason Comments Lab Orders Reason Comments Follow Up Reason Comments ER F/U Chest pain- [facility] 09/16 Reason Comments New Patient Obesity Specialty Diagnoses / Procedures Referred By Rachel t Referred To Contact Diagnoses Class 3 severe obesity without serious comorbidity with body mass index (BMI) of 45.0 to 49.9 in adult, unspecified obesity type (HCC) Procedures CONSULT [facility] OFFICE/OUTPATIENT [facility] 60-74 MINUTES Sarah Herrmann, INDUSTRIAL REGISTERED NURSE.SALES SUPPORT REP [address] [place] [address] Referral ID Status Reason Start Date Expiration Date V isits Requested Visits Authorized [id number] Closed PCP Requested Referral 07/22/2022 07/22/2023 1 [...] pain, x2 wks, recent express care visit, [place], no xray performed pain rated 5, denied [...] Care Teams (unrecognized sec tion and content) Insurance Business Analyst Relationship Specialty Start Date End Date Hector Currie MD [address] [facility] [place] [place] [address] PCP - General Internal Medicine 10/06/17 Insurance Business Analyst Relationship Specialty Start Date End Date Hector Currie MD [address] [place] [address] [place] [address] PCP - General Internal Medicine 10/06/17 Insurance Business Analyst Relationship Specialty Start Date End Date Hector Currie MD [address] [place] [address] PCP - General Internal Medicine 10/06/17 Insurance Business Analyst Relationship Specialty Start Date End Date Hector Currie MD [address] [place] [address] [place] [address] PCP - General Internal Medicine 10/06/17 Insurance Business Analyst Relationship Specialty Start Date End Date Hector Currie MD [address] [place] [address] [place] [address] PCP - General Internal Medicine 10/06/17 Insurance Business Analyst Relationship Specialty Start Date End Date Hector Currie MD [address] [place] [address] [place] [address] PCP - General Internal Medicine 10/06/17 Insurance Business Analyst Relationship Specialty Start Date End Date Hector Currie MD [address] [place] [address] [place] [address] PCP - General Internal Medicine 10/06/17 Insurance Business Analyst Relationship Specialty Start Date End Date Hector Currie MD [address] [facility] [place] [address] PCP - General Internal Medicine 10/06/17 Insurance Business Analyst Relationship Specialty Start Date End Date Hector Currie MD [address] [facility] [place] [address] PCP - General Internal Medicine 10/06/17 Insurance Business Analyst Relationship Specialty Start Date End Date Hector Currie MD [address] [facility] [place] [address] PCP - General Internal Medicine 10/06/17 Insurance Business Analyst Relationship Specialty Start Date End Date Hector Currie MD [address] [facility] [place] [address] PCP - General Internal Medicine 10/06/17 Insurance Business Analyst Relationship Specialty Start Date End Date Hector Currie MD [address] [facility] [place] [address] PCP - General Internal Medicine 10/06/17 Insurance Business Analyst Relationship Specialty Start Date End Date Hector Currie MD [address] [facility] [place] [address] PCP - General Internal Medicine 10/06/17 Team Status: Active Member Role Status Dates Dr. Hector Currie MD Family Provider Active Dr. Hector Currie MD Primary Care Provider Active Team Status: Inactive Member Role Status Dates Dr. Hector Currie MD Primary Care Provider Active Dr. Cuco Mccloud MD Emergency Provider Active Insurance Business Analyst Relationship Specialty Start Date End Date Hector Currie MD [address] [facility] [place] [address] PCP - General Internal Medicine 10/06/17 Insurance Business Analyst Relationship Specialty Start Date End Date Hector Currie MD [address] [place] [address], [place] [address] PCP - General Internal Medicine 10/06/17 Insurance Business Analyst Relationship Specialty Start Date End Date Hector Currie MD [address] [facility] [place] [address] PCP - General Internal Medicine 10/06/17 Insurance Business Analyst Relationship Specialty [place] [address] [place] [address], [place] [address] PCP - General Internal Medicine 10/06/17 Insurance Business Analyst Relationship Specialty Start Date End Date Hector Currie MD [address] [place] [address], [place] [address] PCP - General Internal Medicine 10/06/17 Insurance Business Analyst Relationship Specialty Start Date End Date Hector Currie MD [address] [place] [address] PCP - General Internal Medicine 10/06/17 Insurance Business Analyst Relationship Specialty Start Date End Date Hector Currie MD [address] [place] [address] [place] [address] PCP - General Internal Medicine 10/06/17 Insurance Business Analyst Relationship Specialty Start Date End Date Hector Currie MD [facility] [place] [address] PCP - General Internal Medicine 10/06/17 Insurance Business Analyst Relationship Specialty Start Date End Date Hector Currie MD [address] [place] [address] PCP - General Internal Medicine 10/06/17 Insurance Business Analyst Relationship Specialty Start Date End Date Hector Currie MD [address] [place] [address] PCP - General Internal Medicine 10/06/17 Insurance Business Analyst Relationship Specialty Start Date End Date Hector Currie MD [address] [facility] [place] [address] PCP - General Internal Medicine 10/06/17 Team Status: Inactive Member Role Status Dates Dr. Hector Currie MD Primary Care Pr ovider, Attending Provider, Referring Provider Active Insurance Business Analyst Relationship Specialty Start Date End Date Hector Currie MD [address] [facility] [place] [address] PCP - General Internal Medicine 10/06/17 Insurance Business Analyst Relationship Specialty Start Date End Date Hector Currie MD [address] [facility] [place] [address] PCP - General Internal Medicine 10/06/17 Insurance Business Analyst Relationship Specialty Start Date End Date Hector Currie MD [address] [facility] [place] [address] PCP - General Internal Medicine 10/06/17 Insurance Business Analyst Relationship Specialty Start Date End Date Hector Currie MD [address] [facility] [place] [address] PCP - General Internal Medicine 10/06/17 Insurance Business Analyst Relationship Specialty Start Date End Date Hector Currie MD [address] [facility] [place] [address] PCP - General Internal Medicine 10/06/17 Insurance Business Analyst Relationship Specialty Start Date End Date Hector Currie MD [address] [facility] [place] [address] PCP - General Internal Medicine 10/06/17 Insurance Business Analyst Relationship Specialty Start Date End Date Hector Currie MD [address] [facility] [place] [address] PCP - General Internal Medicine 10/06/17 Insurance Business Analyst Relationship Specialty Start Date End Date Hector Currie MD [address] [facility] [place] [address] PCP - General Internal Medicine 10/06/17 Insurance Business Analyst Relationship Specialty Start Date End Date Hector Currie MD [address] [place] [address] PCP - General Internal Medicine 10/06/17 Insurance Business Analyst Relationship Specialty Start Date End Date Hector Currie MD [address] [place] [address] PCP - General Internal Medicine 10/06/17 Insurance Business Analyst Relationship Specialty Start Date End Date Hector Currie MD [address] [place] [address] PCP - General Internal Medicine 10/06/17 Insurance Business Analyst Relationship Specialty Start Date End Date Hector Currie MD [address] [facility] [place] [address] PCP - General Internal Medicine 10/06/17 Insurance Business Analyst Relationship Specialty Start Date End Date Hector Currie MD [address] [facility] [place] [address] PCP - General Internal Medicine 10/06/17 Insurance Business Analyst Relationship Specialty Start Date End Date Hector Currei MD [address] [facility] [place] [address] PCP - General Internal Medicine 10/06/17 Insurance Business Analyst Relationship Specialty Start Date End Date Hector Currie MD [address] [place] [address] PCP - General Internal Medicine 10/06/17 Insurance Business Analyst Relationship Specialty Start Date End Date Hector Currie MD [address] [place] [address] PCP - General Internal Medicine 10/06/17 Insurance Business Analyst Relationship Specialty Start Date End Date Hector Currie MD [address] [place] [address] PCP - General Internal Medicine 10/06/17 Insurance Business Analyst Relationship Specialty Start Date End Date Hector Currie MD [address] [place] [address] PCP - General Internal Medicine 10/06/17 Sarah Herrmann, INDUSTRIAL REGISTERED NURSE.SALES SUPPORT REP [address] [place] [address] Molding Plasterer Internal Medicine 08/01/24 Liudmila Breaux, INDUSTRIAL REGISTERED NURSE.STENOGRAPHER SECRETARY [address] [place] [address] Molding Plasterer Internal Medicine 08/01/24 Insurance Business Analyst Relationship Specialty Start Date End Date Hector Currie MD [address] [place] [address] PCP - General Internal Medicine 10/06/17 Sarah Herrmann, INDUSTRIAL REGISTERED NURSE.SALES SUPPORT REP [address] [place] [address] Molding Plasterer Internal Medicine 08/01/24 Liudmila Breaux APRN.STENOGRAPHER SECRETARY [address] [place] [address] Molding Plasterer Internal Medicine 08/01/24 Insurance Business Analyst Relationship Specialty Start Date End Date Hector Currie MD [address] [place] [address] PCP - General Internal Medicine 10/06/17 Sarah Herrmann, MARTY.SALES SUPPORT REP [address] [place] [address] Molding Plasterer Internal Medicine 08/01/24 Liudmila Breaux APRN.STENOGRAPHER SECRETARY [address] [place] [address] Molding Plasterer Internal Medicine 08/01/24 Insurance Business Analyst Relationship Specialty Start Date End Date Hector Currie MD [address] [place] [address] PCP - General Internal Medicine 10/06/17 Sarah Herrmann, INDUSTRIAL REGISTERED NURSE.SALES SUPPORT REP [address] [place] [address] Molding Plasterer Internal Medicine 08/01/24 Liudmila Breaux APRN.STENOGRAPHER SECRETARY [address] [place] [address] Molding Plasterer Internal Medicine 08/01/24 Insurance Business Analyst Relationship Specialty Start Date End Date Hector Currie MD [address] [place] [address] PCP - General Internal Medicine 10/06/17 Sarah Herrmann, INDUSTRIAL REGISTERED NURSE.SALES SUPPORT REP [address] [facility] [place], [place] [address] [facility] Internal Medicine 08/01/24 Liudmila Breaux, INDUSTRIAL REGISTERED NURSE.STENOGRAPHER SECRETARY [address] [place], [place] [address] [facility] Internal Medicine 08/01/24 Insurance Business Analyst Relationship Specialty Start Date End Date Hector Currie MD [address] [facility] [place], [place] [address] PCP - General Internal Medicine 10/06/17 Sarah Herrmann, INDUSTRIAL REGISTERED NURSE.SALES SUPPORT REP [address] [facility] [place] [place] [address] [facility] Internal Medicine 08/01/24 Team Status: Inactive Member Role Status Dates Dr. Hector Currie MD Primary Care Provider Active Start: November 30, 2024 End: November 30, 2024 Dr. Rachid Mary MD Attending Provider Active Start: November 30, 2024 End: November 30, 2024 Dr. Rachid Mary MD Referring Provider Active Start: November 30, 2024 End: November 30, 2024 Insurance Business Analyst Relationship Specialty Start Date End Date Hector Currie MD [address] [facility] [place] [place] [address] PCP - General Internal Medicine 10/06/17 Sarah Herrmann, INDUSTRIAL REGISTERED NURSE.SALES SUPPORT REP [address] [facility] [place] [address] [facility] Internal Medicine 08/01/24 Liudmila Breaux, INDUSTRIAL REGISTERED NURSE.STENOGRAPHER SECRETARY [address] [facility] [place] [address] Molding Plasterer Internal Medicine 08/01/24 11/11/24 Liudmila Breaux APRN.STENOGRAPHER SECRETARY [address] [place] [address] Molding Plasterer Internal Medicine 11/15/24 Insurance Business Analyst Relationship Specialty Start Date End Date Hector Currie MD [address] [place] [address] PCP - General Internal Medicine 10/06/17 Sarah Herrmann APRN.SALES SUPPORT REP [address] [place] [address] Molding Plasterer Internal Medicine 08/01/24 Liudmila Breaux APRN.STENOGRAPHER SECRETARY [address] [place] [address] Molding Plasterer Internal Medicine 11/15/24 Insurance Business Analyst Relationship Specialty Start Date End Date Hector Currie MD [address] [place] [address] PCP - General Internal Medicine 10/06/17 Liudmila Breaux INDUSTRIAL REGISTERED NURSE.STENOGRAPHER SECRETARY [address] [place] [address] Molding Plasterer Internal Medicine 11/15/24 Sarah Herrmann INDUSTRIAL REGISTERED NURSE.SALES SUPPORT REP [address] [place] [address] Molding Plasterer Internal Medicine 01/11/25 Insurance Business Analyst Relationship Specialty Start Date End Date Hector Currie MD [address] [place] [address] PCP - General Internal Medicine 10/06/17 Sarah Herrmann, INDUSTRIAL REGISTERED NURSE.SALES SUPPORT REP [address] [place] [address] [facility] Internal Medicine 08/01/24 01/10/25 Liudmila Breaux, INDUSTRIAL REGISTERED NURSE.STENOGRAPHER SECRETARY [address] [place] [address] [facility] Internal Medicine 11/15/24 Sarah Herrmann, INDUSTRIAL REGISTERED NURSE.SALES SUPPORT REP [address] [place] [address] [facility] Internal Medicine 01/11/25 Insurance Business Analyst Relationship Specialty Start Date End Date Hector Currie MD [address] [place] [address] PCP - General Internal Medicine 10/06/17 Liudmila Breaux INDUSTRIAL REGISTERED NURSE.STENOGRAPHER SECRETARY [address] [place] [address] [facility] Internal Medicine 11/15/24 Sarah Herrmann, INDUSTRIAL REGISTERED NURSE.SALES SUPPORT REP [address] [place] [address] [facility] Internal Medicine 01/11/25 Insurance Business Analyst Relationship Specialty Start Date End Date Hector Currie MD [address] [place] [address] PCP - General Internal Medicine 10/06/17 Liudmila Breaux INDUSTRIAL REGISTERED NURSE.STENOGRAPHER SECRETARY [address] [place] [address] [facility] Internal Medicine 11/15/24 Sarah Herrmann, MARTY.SALES SUPPORT REP [address] [place] [address] Molding Plasterer Internal Medicine 01/11/25 Goals (unrecognized section and [...] BE BASED ON THE PRIMARY CLINICAL RECORDS. [employer] provides no warranty or guarantee of the accuracy or completeness of information in this document.
== END | disposition home or self-care (01) ==
LOC: SL 08:59
PROVIDERS: PCP Internal Medicine; Visit Provider Clinical Nurse Specialist
DX: Z46.89 Encounter for fitting and adjustment of other specified devices (principal)